=== PATIENT | female | born 1995 | race Caucasian/White ===

== ENCOUNTER 2016-09-24 00:03 | Emergency (ER) | payer OTHER ==
[2016-09-24 00:10] VITALS: TEMP 98.4
[2016-09-24] MEDS ORDERED: SODIUM CHLORIDE 0.9% 1,000 ML IV STA (00:36)
[2016-09-24] MEDS ORDERED: diphenhydrAMINE 50 MG/ML 1 ML VIAL IVP STA (00:36)
[2016-09-24] MEDS ORDERED: METOCLOPRAMIDE 5 MG/ML 2 ML VIAL IVP STA (00:36)
[2016-09-24 01:03] LABS: Basophils # (A) 0.1 k/uL (0-0.2); Basophils % (A) 0 %; CH 29.8; CHCM 32.6; Eosinophils # (A) 0.3 k/uL (0-0.7); Eosinophils % (A) 2 %; HCT 42.7 % (34.0-46.0); HDW 2.62; HGB 13.3 gm/dL (11.4-16.0); Luc # (Auto) 0.09; Luc % (Auto) 1; Lymphocytes # (A) 1.9 k/uL (1.0-4.8); Lymphocytes % (A) 14 %; MCH 28.7 pg (25.0-35.0); MCHC 31.2 g/dL (31.0-37.0); MCV 91.8 fL (80.0-100.0); Mean Platelet Volume 7.7; Monocytes # (A) 0.4 k/uL (0-1.0); Monocytes % (A) 3 %; Neutrophils # (A) 10.7 k/uL (1.3-7.7); Neutrophils % (A) 80 %; RBC 4.65 m/uL (3.80-5.40); RDW 13.5 % (11.5-15.5); WBC 13.4 k/uL (3.8-10.6); WBC (Perox) 13.79
[2016-09-24 01:05] LABS: Amorphous Sediment,Urine Rare /hpf; Appearance,Urine Cloudy (Clear); Bilirubin,Urine Negative (Negative); Glucose,Urine (UA) Negative (Negative); Ketones,Urine Negative (Negative); Leukocyte Esterase,Urine Negative (Negative); Mucus,Urine Rare /hpf; Nitrite,Urine Negative (Negative); PH, Urine 5.5 (5.0-8.0); Particle Count 14789; Protein,Urine 1+ (Negative); RBC,Urine 3 /hpf (0-5); Specific Gravity,Urine 1.014 (1.001-1.035); Squamous Epithelial Cell,Urine 22 /hpf (0-4); UA Billing (MACRO vs. MICRO) MICRO; Urobilinogen,Urine <2.0 mg/dL (<2.0); WBC,Urine 5 /hpf (0-5)
[2016-09-24 01:14] LABS: Amylase 42 U/L (30-110); Anion Gap 15 mmol/L; Calcium 9.5 mg/dL (8.4-10.2); Carbon Dioxide 18 mmol/L (22-30); Chloride 110 mmol/L (98-107); Glucose 111 mg/dL (74-99); Non-African American GFR(MDRD) >60 (>60 ml/min/1.73 sqM); Sodium 143 mmol/L (137-145); Total Bilirubin 0.5 mg/dL (0.2-1.3); Total Protein 7.7 g/dL (6.3-8.2)
[2016-09-24 01:17] LABS: ALT 80 U/L (9-52); AST 97 U/L (14-36); Alkaline Phosphatase 75 U/L (38-126); Blood Urea Nitrogen 8 mg/dL (7-17); Potassium 4.5 mmol/L (3.5-5.1)
--- NOTE | 2016-09-24 01:35 | ED ---
General Adult HPI - General Chief complaint: GI Bleed Stated complaint: Abd Pain/Vomiting Time Seen by Provider: 09/24/16 00:13 Source: patient, RN notes reviewed Mode of arrival: ambulatory Limitations: no limitations - History of Present Illness Initial comments: Patient is a 19-year-old female presenting to the with chief complaint of 1 day of abdominal pain and vomiting. She reports is a diffuse abdominal pain. Patient reports that she's had 4 episodes of vomiting and she is usually able to handle this with a prescribed nausea medication however continue to persist. She also reports that she had one episode of bright red blood in a bowel movement early today. She reports some pain with bowel movements. She reports she's had a past medical history liver cirrhosis, cholecystectomy, appendectomy , A "slow stomach ", IBS. She denies decreased urination, fever, chills, chest pian, cough, bloody emesis, shortness of breath, back pain. - Related Data Home Medications Medication Instructions Recorded Confirmed Albuterol Inhaler [Ventolin 2 puff INHALATION RT-Q6H PRN 08/27/15 09/24/16 Inhaler] Levothyroxine Sodium [Synthroid] 75 mcg PO QAM 08/27/15 09/24/16 [place] Carbonate 900 mg PO HS 08/27/15 09/24/16 Omeprazole [PriLOSEC] 20 mg PO AC-BID 08/27/15 09/24/16 Topiramate [Topamax] 100 mg PO HS 08/27/15 09/24/16 Norgestimate-Ethinyl Estradiol 1 tab PO DAILY 05/10/16 09/24/16 [[place]-Linyah 28 Tablet] FLUoxetine HCL [Sarafem] 60 mg PO QAM 07/05/16 09/24/16 Loratadine [Loratadine] 10 mg PO DAILY 07/05/16 09/24/16 cloNIDine HCL [Clonidine HCl] 0.1 mg PO HS 07/05/16 09/24/16 clonazePAM [clonazePAM] 2 mg PO HS 07/05/16 09/24/16 metFORMIN HCL [Metformin HCl ER] 500 mg PO BID 07/05/16 09/24/16 Previous Rx's Medication Instructions Recorded Ondansetron Odt [Zofran Odt] 4 mg PO Q8HR PRN #10 tab 02/27/16 Famotidine [Pepcid] 20 mg PO DAILY #60 tablet 07/05/16 Metoclopramide [Reglan] 10 mg PO TID PRN #15 tab 07/17/16 Metoclopramide [Reglan] 10 mg PO BID #15 tab 09/24/16 Ondansetron Odt [Zofran ODT] 4 mg PO Q8HR PRN #12 tab 09/24/16 Allergies Allergy/AdvReac Type Severity Reaction Status Date / Time fentanyl Allergy Rash/Hives Verified 09/24/16 00:07 latex Allergy Rash/Hives Verified 09/24/16 00:07 Penicillins Allergy Rash/Hives Verified 09/24/16 00:07 ibuprofen [From Motrin] AdvReac Diarrhea Verified 09/24/16 00:07 Review of Systems ROS Statement: Those systems with pertinent positive or pertinent negative responses have been documented in the HPI. ROS Other: All systems not noted in ROS Statement are negative. Past Medical History Past Medical History: Asthma, Diabetes Mellitus, Fibromyalgia, GERD/Reflux, Liver Disease, Thyroid Disorder Additional Past Medical History / Comment(s): Cirrhosis of the liver, esophagus disease, migraines, dysphagia, tachycardia, ulcer History of Any Multi-Drug Resistant Organisms: None Reported Past Surgical History: Appendectomy, Cholecystectomy, Tonsillectomy Additional Past Surgical History / Comment(s): Septum repair Past Anesthesia/Blood Transfusion Reactions: No Reported Reaction Past Psychological History: Anxiety, Depression, PTSD Smoking Status: Never smoker Past Alcohol Use History: None Reported Past Drug Use History: None Reported - Past Family History Mother Family Medical History: No Reported History General Exam - General Exam Comments Initial Comments: Jaek is a morbidly obese 21-year-old female. She does not appear to be in any significant distress at this time. Limitations: no limitations General appearance: alert, in no apparent distress Head exam: Present: atraumatic, normocephalic, normal inspection Eye exam: Present: normal appearance, PERRL, EOMI. Absent: scleral icterus, conjunctival injection, periorbital swelling ENT exam: Present: normal exam, mucous membranes moist Neck exam: Present: normal inspection. Absent: tenderness, meningismus, lymphadenopathy Respiratory exam: Present: normal lung sounds bilaterally. Absent: respiratory distress, wheezes, rales, rhonchi, stridor Cardiovascular Exam: Present: regular rate, normal rhythm, normal heart sounds. Absent: systolic murmur, diastolic murmur, rubs, gallop, clicks GI/Abdominal exam: Present: soft, tenderness (Mild tenderness diffusely throughout the abdomen. Mainly tender in LEFt upper quadrant), normal bowel sounds. Absent: distended, guarding, rebound, rigid Extremities exam: Present: normal inspection, full ROM, normal capillary refill. Absent: tenderness, pedal edema, joint swelling, calf tenderness Back exam: Present: normal inspection Neurological exam: Present: alert, oriented X3, CN II-XII intact Psychiatric exam: Present: normal affect, normal mood Course Vital Signs 09/24/16 09/24/16 00:08 03:04 Temperature 98.4 F Pulse Rate 90 70 Respiratory 18 16 Rate Blood Pressure 123/77 132/72 O2 Sat by Pulse 98 96 Oximetry Medical Decision Making - Medical Decision Making Patient is a 21 year old female with one day of vomiting and abdominal pain. Patient labs are normal, KUB is normal as well. PAtient will be discharged with nausea medication. Advised to follow up with Dr. Rocha in regards to bloody stool , and possibility of hemorrhoids.Patient reports she feels better after IV hydration and nausea medication. Patient understands treatment plan and will comply. - Lab Data Result diagrams: 09/24/16 00:50 09/24/16 00:50 Lab Results 09/24/16 09/24/16 09/24/16 Range/Units 00:50 00:50 00:50 WBC 13.4 H (3.8-10.6) k/uL RBC 4.65 (3.80-5.40) m/uL Hgb 13.3 (11.4-16.0) gm/dL Hct 42.7 (34.0-46.0) % MCV 91.8 (80.0-100.0) fL MCH 28.7 (25.0-35.0) pg MCHC 31.2 (31.0-37.0) g/dL RDW 13.5 (11.5-15.5) % Plt Count 319 (150-450) k/uL Neutrophils % 80 % Lymphocytes % 14 % Monocytes % 3 % Eosinophils % 2 % Basophils % 0 % Neutrophils # 10.7 H (1.3-7.7) k/uL Lymphocytes # 1.9 (1.0-4.8) k/uL Monocytes # 0.4 (0-1.0) k/uL Eosinophils # 0.3 (0-0.7) k/uL Basophils # 0.1 (0-0.2) k/uL Sodium 143 (137-145) mmol/L Potassium 4.5 (3.5-5.1) mmol/L Chloride 110 H (98-107) mmol/L Carbon Dioxide 18 L (22-30) mmol/L Anion Gap 15 mmol/L BUN 8 (7-17) mg/dL Creatinine 0.80 (0.52-1.04) mg/dL Est GFR (MDRD) Af Amer >60 (>60 ml/min/1.73 sqM) Est GFR (MDRD) Non-Af >60 (>60 ml/min/1.73 sqM) Glucose 111 H (74-99) mg/dL Calcium 9.5 (8.4-10.2) mg/dL Total Bilirubin 0.5 (0.2-1.3) mg/dL AST 97 H (14-36) U/L ALT 80 H (9-52) U/L Alkaline Phosphatase 75 (38-126) U/L Total Protein 7.7 (6.3-8.2) g/dL Albumin 4.1 (3.5-5.0) g/dL Amylase 42 (30-110) U/L Lipase 46 (23-300) U/L Urine Color Yellow Urine Appearance Cloudy H (Clear) Urine pH 5.5 (5.0-8.0) Ur Specific [place] 1.014 (1.001-1.035) Urine Protein 1+ H (Negative) Urine Glucose (UA) Negative (Negative) Urine Ketones Negative (Negative) Urine Blood Negative (Negative) Urine Nitrate Negative (Negative) Urine Bilirubin Negative (Negative) Urine Urobilinogen <2.0 (<2.0) mg/dL Ur Leukocyte Esterase Negative (Negative) Urine RBC 3 (0-5) /hpf Urine WBC 5 (0-5) /hpf Ur Squamous Epith Cells 22 H (0-4) /hpf Amorphous Sediment Rare H (None) /hpf Hyaline Casts 5 H (0-2) /lpf Urine Mucus Rare H (None) /hpf Urine HCG, Qual (Not Detectd) Stool Occult Blood (Negative) 09/24/16 09/24/16 Range/Units 00:50 01:30 WBC (3.8-10.6) k/uL RBC (3.80-5.40) m/uL Hgb (11.4-16.0) gm/dL Hct (34.0-46.0) % MCV (80.0-100.0) fL MCH (25.0-35.0) pg MCHC (31.0-37.0) g/dL RDW (11.5-15.5) % Plt Count (150-450) k/uL Neutrophils % % Lymphocytes % % Monocytes % % Eosinophils % % Basophils % % Neutrophils # (1.3-7.7) k/uL Lymphocytes # (1.0-4.8) k/uL Monocytes # (0-1.0) k/uL Eosinophils # (0-0.7) k/uL Basophils # (0-0.2) k/uL Sodium (137-145) mmol/L Potassium (3.5-5.1) mmol/L Chloride (98-107) mmol/L Carbon Dioxide (22-30) mmol/L Anion Gap mmol/L BUN (7-17) mg/dL Creatinine (0.52-1.04) mg/dL Est GFR (MDRD) Af Amer (>60 ml/min/1.73 sqM) Est GFR (MDRD) Non-Af (>60 ml/min/1.73 sqM) Glucose (74-99) mg/dL Calcium (8.4-10.2) mg/dL Total Bilirubin (0.2-1.3) mg/dL AST (14-36) U/L ALT (9-52) U/L Alkaline Phosphatase (38-126) U/L Total Protein (6.3-8.2) g/dL Albumin (3.5-5.0) g/dL Amylase (30-110) U/L Lipase (23-300) U/L Urine Color Urine Appearance (Clear) Urine pH (5.0-8.0) Ur Specific [place] (1.001-1.035) Urine Protein (Negative) Urine Glucose (UA) (Negative) Urine Ketones (Negative) Urine Blood (Negative) Urine Nitrate (Negative) Urine Bilirubin (Negative) Urine Urobilinogen (<2.0) mg/dL Ur Leukocyte Esterase (Negative) Urine RBC (0-5) /hpf Urine WBC (0-5) /hpf Ur Squamous Epith Cells (0-4) /hpf Amorphous Sediment (None) /hpf Hyaline Casts (0-2) /lpf Urine Mucus (None) /hpf Urine HCG, Qual Not Detected (Not Detectd) Stool Occult Blood Positive H (Negative) Disposition Clinical Impression: Heme + stool, Nausea & vomiting Disposition: HOME SELF-CARE Condition: Good Instructions: Gastrointestinal Bleeding (ED), Hemorrhoids (ED) Additional Instructions: instructed to use stool softeners. Patient started take nausea medication as directed. Follow-up with Dr. Sarmiento regards to heme-positive stools. Return to the [facility] if any alarming signs or symptoms occur. Prescriptions: Metoclopramide [Reglan] 10 mg PO BID #15 tab Ondansetron Odt [Zofran ODT] 4 mg PO Q8HR PRN #12 tab PRN Reason: Nausea Referrals: Marysol Rose DO [Primary Care Provider] - 1-2 days Time of Disposition: 02:41
--- NOTE | 2016-09-24 01:44 | XR ---
EXAMINATION TYPE: XR KUB DATE OF EXAM: 09/24/2016 1:06 AM CLINICAL HISTORY: Abdominal pain, rectal bleeding TECHNIQUE: 2 frontal upright radiographs of abdomen were obtained. COMPARISON: None. FINDINGS: Scattered gas is seen in non-distended small bowel loops. Gas and fecal material is seen in non-distended colon. There is no visceromegaly, pneumoperitoneum, or abnormal calcification appr eciated. The lung bases are clear and the osseous structures are intact. Surgical clips are noted in the right upper abdomen. Mild levoscoliosis is present in the lumbar spine. IMPRESSION: Overall nonobstructive bowel gas pattern.
[2016-09-24 03:05] VITALS: BP 132/72; PULSE 70; RESP 16
[2016-09-28 01:58] LABS: Hemoglobin A1C 5.2 % (4.2-6.1)
== END 2016-09-24 03:04 | disposition home or self-care (01) ==
LOC: EC 00:03
DX: R11.2 Nausea with vomiting, unspecified (principal); R19.5 Other fecal abnormalities; R10.9 Unspecified abdominal pain; K74.60 Unspecified cirrhosis of liver; K58.9 Irritable bowel syndrome, unspecified; Z79.3 Long term (current) use of hormonal contraceptives; Z79.84 Long term (current) use of oral hypoglycemic drugs; Z88.5 Allergy status to narcotic agent; Z88.0 Allergy status to penicillin; Z91.040 Latex allergy status; E07.9 Disorder of thyroid, unspecified; E11.9 Type 2 diabetes mellitus without complications; M79.7 Fibromyalgia; K21.9 Gastro-esophageal reflux disease without esophagitis; F41.9 Anxiety disorder, unspecified; F32.9 Major depressive disorder, single episode, unspecified; F43.10 Post-traumatic stress disorder, unspecified
CPT/HCPCS: 99284; 96374; 96375; 96361; 36415; 80053; 82150; 83036; 83690; 85025; 82272; 81001; 81025; 74000; J1200; J2765

== ENCOUNTER 2016-10-20 14:17 | Emergency (ER) | payer OTHER ==
[2016-10-20 14:27] VITALS: RESP 18
[2016-10-20] MEDS ORDERED: HYDROcodone/APAP 5-325MG 1 EACH TAB PO STA (14:36)
--- NOTE | 2016-10-20 14:42 | ED ---
Chest Pain HPI - General Chief Complaint: Chest Pain Stated Complaint: Chest Pain Time Seen by Provider: 10/20/16 14:32 Source: patient, RN notes reviewed Mode of arrival: wheelchair Limitations: no limitations - History of Present Illness Initial Comments: 21-year-old female presents to the emergency department with a chief complaint of chest pain. Patient states that she's been helping her brother with his baby and everything when she lifts the baby when she will she has this chest discomfort. Patient states she is so painful to the chest painful to touch and painful to take a big deep breath. Patient states she is here because she just could not tolerate the pain anymore. Patient states there is no falls traumas or injuries. Patient states she was concerned due to the continued pain so she thought that she should be seen. Patient denies any recent fever, chills, shortness of breath, back pain, abdominal pain, nausea vomiting, numbness or tingling, dysuria or hematuria, constipation or diarrhea, headaches or visual changes, or any other current symptoms. - Related Data Home Medications Medication Instructions Recorded Confirmed Albuterol Inhaler [Ventolin 2 puff INHALATION RT-Q6H PRN 08/27/15 10/20/16 Inhaler] Levothyroxine Sodium [Synthroid] 75 mcg PO QAM 08/27/15 10/20/16 [place] Carbonate 900 mg PO HS 08/27/15 10/20/16 Omeprazole [PriLOSEC] 20 mg PO AC-BID 08/27/15 10/20/16 Topiramate [Topamax] 100 mg PO HS 08/27/15 10/20/16 Norgestimate-Ethinyl Estradiol 1 tab PO DAILY 05/10/16 10/20/16 [[place]-Linyah 28 Tablet] FLUoxetine HCL [Sarafem] 60 mg PO QAM 07/05/16 10/20/16 Loratadine [Loratadine] 10 mg PO DAILY 07/05/16 10/20/16 cloNIDine HCL [Clonidine HCl] 0.1 mg PO HS 07/05/16 10/20/16 clonazePAM [clonazePAM] 2 mg PO HS 07/05/16 10/20/16 Metoclopramide [Reglan] 10 mg PO DAILY 10/20/16 10/20/16 Previous Rx's Medication Instructions Recorded Famotidine [Pepcid] 20 mg PO DAILY #60 tablet 07/05/16 Ondansetron Odt [Zofran ODT] 4 mg PO Q8HR PRN #12 tab 09/24/16 Allergies Allergy/AdvReac Type Severity Reaction Status Date / Time fentanyl Allergy Rash/Hives Verified 10/20/16 14:27 latex Allergy Rash/Hives Verified 10/20/16 14:27 Penicillins Allergy Rash/Hives Verified 10/20/16 14:27 ibuprofen [From Motrin] AdvReac Diarrhea Verified 10/20/16 14:27 Review of Systems ROS Statement: Those systems with pertinent positive or pertinent negative responses have been documented in the HPI. ROS Other: All systems not noted in ROS Statement are negative. EKG Findings - EKG Comments: EKG Findings:: normal sinus rhythm 97 bpm, normal axis, no atopy, no S-T depressions or elevations, Past Medical History Past Medical History: Asthma, Fibromyalgia, GERD/Reflux, Liver Disease, Thyroid Disorder Additional Past Medical History / Comment(s): Cirrhosis of the liver, esophagus disease, migraines, dysphagia, tachycardia, ulcer History of Any Multi-Drug Resistant Organisms: None Reported Past Surgical History: Appendectomy, Cholecystectomy, Tonsillectomy Additional Past Surgical History / Comment(s): Septum repair Past Anesthesia/Blood Transfusion Reactions: No Reported Reaction Past Psychological History: Anxiety, Depression, PTSD Smoking Status: Never smoker Past Alcohol Use History: None Reported Past Drug Use History: None Reported - Past Family History Mother Family Medical History: No Reported History General Exam - General Exam Comments Initial Comments: General: The patient is awake and alert, in no distress, and does not appear acutely ill. Eye: Pupils are equal, round and reactive to light. Ears, nose, mouth and throat: There are moist mucous membranes. Neck: The neck is supple, there is no tenderness. Cardiovascular: There is a regular rate and rhythm. No murmur, rub or gallop is appreciated. Tenderness with patient the anterior chest wall. Respiratory: Lungs are clear to auscultation, respirations are non-labored, breath sounds are equal. No wheezes, stridor, rales, or rhonchi. Back: There is no tenderness to palpation in the midline. There is no obvious deformity. No rashes noted. Musculoskeletal: Normal ROM, no tenderness, There is no pedal edema. There is no calf tenderness or swelling. Sensation intact. Pulses equal bilaterally 2+. Neurological: CN II-XII intact, There are no obvious motor or sensory deficits. Coordination appears grossly intact. Speech is normal. Skin: Skin is warm and dry and no rashes or lesions are noted. Psychiatric: Cooperative, appropriate mood & affect, normal judgment. Limitations: no limitations Course Vital Signs 10/20/16 14:22 Temperature 98.3 F Pulse Rate 86 Respiratory 18 Rate Blood Pressure 111/55 O2 Sat by Pulse 97 Oximetry Chest Pain MDM - MDM 21-year-old female presents for chest wall pain. At this time EKG and chest x- ray were reviewed and show no acute process. Patient appears to be costochondritis. We discussed continued ice the area we discussed using Tylenol for pain control. We discussed return parameters and follow-up. Patient states that she understood all the questions have been answered. She will be discharged home. Disposition Clinical Impression: Costochondritis, acute Disposition: HOME SELF-CARE Condition: Stable Instructions: Costochondritis (ED) Additional Instructions: Please use medication as discussed. Please follow up with family doctor if symptoms have not improved over the next two days. Please return to the emergency room if your symptoms increase or worsen or for any other concerns. Referrals: Marysol Rose DO [Primary Care Provider] - 1-2 days Time of Disposition: 15:39
--- NOTE | 2016-10-20 15:38 | XR ---
EXAMINATION TYPE: XR chest 2V DATE OF EXAM: 10/20/2016 3:06 PM COMPARISON: 08/31/2016 HISTORY: Cough and short of breath TECHNIQUE: Frontal and lateral views of the chest are obtained. FINDINGS: Heart and mediastinum are normal. Lungs are clear of infiltrate. There is no heart failure . Costophrenic angles are clear. Bony thorax is intact. IMPRESSION: No active cardiopulmonary disease. No change.
[2016-10-20 16:04] VITALS: BP 112/68; PULSE 100; TEMP 97.6
== END 2016-10-20 16:04 | disposition home or self-care (01) ==
LOC: EC 14:17
DX: M94.0 Chondrocostal junction syndrome [Tietze] (principal); E07.9 Disorder of thyroid, unspecified; K21.9 Gastro-esophageal reflux disease without esophagitis; G43.909 Migraine, unspecified, not intractable, without status migrainosus; K74.60 Unspecified cirrhosis of liver; F43.10 Post-traumatic stress disorder, unspecified; F32.9 Major depressive disorder, single episode, unspecified; F41.9 Anxiety disorder, unspecified; Z79.3 Long term (current) use of hormonal contraceptives; Z79.899 Other long term (current) drug therapy; Z88.0 Allergy status to penicillin; Z88.5 Allergy status to narcotic agent; Z91.040 Latex allergy status
CPT/HCPCS: 71020; 93005; 99285

== ENCOUNTER → 2016-12-20 | Outpatient (CLI) | payer OTHER ==
[2016-12-20 14:49] LABS: CH 29.3; CHCM 31.3; HCT 42.7 % (34.0-46.0); HDW 2.58; HGB 13.7 gm/dL (11.4-16.0); Hypochromasia Slight; MCH 30.1 pg (25.0-35.0); Mean Platelet Volume 6.7; RBC 4.54 m/uL (3.80-5.40); RDW 13.4 % (11.5-15.5); WBC 10.9 k/uL (3.8-10.6)
[2016-12-20 15:02] LABS: ALT 88 U/L (9-52); AST 103 U/L (14-36); Alkaline Phosphatase 82 U/L (38-126); Anion Gap 13 mmol/L; Blood Urea Nitrogen 9 mg/dL (7-17); Carbon Dioxide 20 mmol/L (22-30); Chloride 107 mmol/L (98-107); Cholesterol 266 mg/dL (<200); GGT 193 U/L (12-43); Glucose 110 mg/dL (74-99); HDL Cholesterol 48 mg/dL (40-60); Non-African American GFR(MDRD) >60 (>60 ml/min/1.73 sqM); Sodium 140 mmol/L (137-145); Total Bilirubin 0.4 mg/dL (0.2-1.3); Total Protein 7.8 g/dL (6.3-8.2); Triglycerides 452 mg/dL (<150)
[2016-12-21 04:52] LABS: EBV - VCA IgM 10.9 U/mL (<36.0)
== END | disposition home or self-care (01) ==
LOC: PROCWHC3 14:30
PROVIDERS: ATTEND Family Medicine
DX: K76.0 Fatty (change of) liver, not elsewhere classified (principal); J11.1 Influenza due to unidentified influenza virus with other respiratory manifestations; R10.9 Unspecified abdominal pain
CPT/HCPCS: 36415; 80053; 80061; 82977; 83735; 84443; 85027; 86644; 86665; 87502

== ENCOUNTER 2017-01-06 18:22 | Inpatient (IN) | payer OTHER ==
[2017-01-06] MEDS ORDERED: HYDROmorphone 1 MG/ML 1 ML SYRINGE IVP STA (19:16)
[2017-01-06] MEDS ORDERED: METOCLOPRAMIDE 5 MG/ML 2 ML VIAL IVP STA (19:16)
[2017-01-06] MEDS ORDERED: diphenhydrAMINE 50 MG/ML 1 ML VIAL IVP STA (19:16)
[2017-01-06] MEDS ORDERED: SODIUM CHLORIDE 0.9% 1,000 ML IV STA (19:16)
--- NOTE | 2017-01-06 19:53 | ED ---
Nausea/Vomiting/Diarrhea HPI - General Source: patient, RN notes reviewed, old records reviewed Mode of arrival: ambulatory Limitations: no limitations <Sheila Haji - Last Filed: 01/06/17 21:32> <Pavan Post - Last Filed: 01/06/17 22:18> - General Chief complaint: Nausea/Vomiting/Diarrhea Stated complaint: Vomiting, abd pain Time Seen by Provider: 01/06/17 19:02 - History of Present Illness Initial comments: This is a 21-year-old female with chief complaint of right upper quadrant epigastric abdominal pain and multiple episodes of vomiting for one day. Patient reports with a slow stomach. She reports that she's had her gallbladder removed. She states that she follows up with Dr. Rocha regards to return gastrointestinal issues. She states she does have a history of poor liver and states that she will continually have liver pain all the time. She reports that she has a history of liver cirrhosis as well due to psychiatric medications. Patient states that she has not been able to hold down any food or liquid. She reports that she vomited her entire right in the emergency department. (Sheila Haji) - Related Data Home Medications Medication Instructions Recorded Confirmed Albuterol Inhaler [Ventolin 2 puff INHALATION RT-Q6H PRN 08/27/15 01/06/17 Inhaler] [place] Carbonate 600 mg PO HS 08/27/15 01/06/17 Omeprazole [PriLOSEC] 20 mg PO AC-BID 08/27/15 01/06/17 Topiramate [Topamax] 100 mg PO HS 08/27/15 01/06/17 Norgestimate-Ethinyl Estradiol 1 tab PO DAILY 05/10/16 01/06/17 [[place]-Linyah 28 Tablet] FLUoxetine HCL [Sarafem] 60 mg PO QAM 07/05/16 01/06/17 Loratadine [Loratadine] 10 mg PO DAILY 07/05/16 01/06/17 cloNIDine HCL [Clonidine HCl] 0.1 mg PO HS 07/05/16 01/06/17 Metoclopramide [Reglan] 10 mg PO DAILY PRN 10/20/16 01/06/17 Hydrochlorothiazide 25 mg PO DAILY PRN 01/06/17 01/06/17 Levothyroxine Sodium [Synthroid] 125 mcg PO DAILY 01/06/17 01/06/17 Ondansetron Odt [Zofran ODT] 4 mg PO DAILY PRN 01/06/17 01/06/17 clonazePAM [KlonoPIN] 0.5 mg PO DAILY 01/06/17 01/06/17 clonazePAM [KlonoPIN] 1.5 mg PO HS 01/06/17 01/06/17 Previous Rx's Medication Instructions Recorded Famotidine [Pepcid] 20 mg PO DAILY #60 tablet 07/05/16 Allergies Allergy/AdvReac Type Severity Reaction Status Date / Time fentanyl Allergy Rash/Hives Verified 01/06/17 19:39 latex Allergy Rash/Hives Verified 01/06/17 19:39 Penicillins Allergy Rash/Hives Verified 01/06/17 19:39 ibuprofen [From Motrin] AdvReac Diarrhea Verified 01/06/17 19:39 GRAPE JUICE Allergy Unknown Uncoded 01/06/17 19:39 Review of Systems ROS Other: All systems not noted in ROS Statement are negative. <Sheila Haji - Last Filed: 01/06/17 21:32> ROS Other: All systems not noted in ROS Statement are negative. <Pavan Post - Last Filed: 01/06/17 22:18> ROS Statement: Those systems with pertinent positive or pertinent negative responses have been documented in the HPI. Past Medical History Past Medical History: Asthma, Fibromyalgia, GERD/Reflux, Liver Disease, Thyroid Disorder Additional Past Medical History / Comment(s): Cirrhosis of the liver, esophagus disease, migraines, dysphagia, tachycardia, ulcer History of Any Multi-Drug Resistant Organisms: None Reported Past Surgical History: Appendectomy, Cholecystectomy, Tonsillectomy Additional Past Surgical History / Comment(s): Septum repair Past Anesthesia/Blood Transfusion Reactions: No Reported Reaction Past Psychological History: Anxiety, Depression, PTSD Smoking Status: Never smoker Past Alcohol Use History: None Reported Past Drug Use History: None Reported - Past Family History Mother Family Medical History: No Reported History <Sheila Haji - Last Filed: 01/06/17 21:32> General Exam Limitations: no limitations General appearance: alert, in no apparent distress Head exam: Present: atraumatic, normocephalic, normal inspection Eye exam: Present: normal appearance, PERRL, EOMI. Absent: scleral icterus, conjunctival injection, periorbital swelling ENT exam: Present: normal exam, normal oropharynx, mucous membranes moist Neck exam: Present: normal inspection. Absent: tenderness, meningismus, lymphadenopathy Respiratory exam: Present: normal lung sounds bilaterally. Absent: respiratory distress, wheezes, rales, rhonchi, stridor Cardiovascular Exam: Present: regular rate, normal rhythm, normal heart sounds. Absent: systolic murmur, diastolic murmur, rubs, gallop, clicks GI/Abdominal exam: Present: soft, tenderness (RUQ tenderness and epigastric tenderness. ), normal bowel sounds. Absent: distended, guarding, rebound, rigid Extremities exam: Present: normal inspection, full ROM, normal capillary refill. Absent: tenderness, pedal edema, joint swelling, calf tenderness Back exam: Present: normal inspection Neurological exam: Present: alert, oriented X3, CN II-XII intact Psychiatric exam: Present: normal affect, normal mood Skin exam: Present: warm, dry, intact, normal color. Absent: rash <Sheila Haji - Last Filed: 01/06/17 21:32> <Pavan Post - Last Filed: 01/06/17 22:18> - General Exam Comments Initial Comments: The obese 21-year-old female. Patient does not appear to be in any acute distress. Patient is not vomiting at this time. (Sheila Haji) Medical Decision Making - Lab Data Result diagrams: 01/06/17 20:10 01/06/17 20:10 - Radiology Data Radiology results: report reviewed <Sheila Haji - Last Filed: 01/06/17 21:32> - Lab Data Result diagrams: 01/06/17 20:10 01/06/17 20:10 <Pavan Post - Last Filed: 01/06/17 22:18> - Medical Decision Making This is a 21-year-old female with a right upper quadrant pain and intractable vomiting. Patient states she has a history of cholecystectomy". She follows up with Dr. Sarmiento. Patient reports she feels chilled denies any fever. Patient's lab work was obtained. She does have significantly elevated liver enzymes. She reports she has history of liver cirrhosis due to psychiatric medications. Patient states that she has not been able to stop vomiting. Patient denies any recent drug or alcohol use. Discussed case with Dr. Post. Like to run a hepatitis panel. Discussed the patient could likely be admitted for GI consult, and nausea and vomiting management. (Sheila Haji) Alejandro decision-making. The patient's case discussed with Dr. Huff. Patient be admitted his service with request for consultation from her house painter helper Dr. Rocha. Dr. Post (Pavan Post) - Lab Data Lab Results 01/06/17 01/06/17 01/06/17 Range/Units 20:00 20:10 20:10 WBC 11.2 H (3.8-10.6) k/uL RBC 5.06 (3.80-5.40) m/uL Hgb 14.7 (11.4-16.0) gm/dL Hct 44.9 (34.0-46.0) % MCV 88.7 D (80.0-100.0) fL MCH 29.1 (25.0-35.0) pg MCHC 32.8 (31.0-37.0) g/dL RDW 13.4 (11.5-15.5) % Plt Count 358 (150-450) k/uL Neutrophils % 79 % Lymphocytes % 14 % Monocytes % 3 % Eosinophils % 3 % Basophils % 1 % Neutrophils # 8.8 H (1.3-7.7) k/uL Lymphocytes # 1.6 (1.0-4.8) k/uL Monocytes # 0.4 (0-1.0) k/uL Eosinophils # 0.3 (0-0.7) k/uL Basophils # 0.1 (0-0.2) k/uL Sodium 143 (137-145) mmol/L Potassium 3.3 L (3.5-5.1) mmol/L Chloride 103 (98-107) mmol/L Carbon Dioxide 27 (22-30) mmol/L Anion Gap 13 mmol/L BUN 12 (7-17) mg/dL Creatinine 1.00 (0.52-1.04) mg/dL Est GFR (MDRD) Af Amer >60 (>60 ml/min/1.73 sqM) Est GFR (MDRD) Non-Af >60 (>60 ml/min/1.73 sqM) Glucose 113 H (74-99) mg/dL Calcium 10.9 H (8.4-10.2) mg/dL Total Bilirubin 0.6 (0.2-1.3) mg/dL AST 583 H (14-36) U/L ALT 412 H (9-52) U/L Alkaline Phosphatase 99 (38-126) U/L Total Protein 9.0 H (6.3-8.2) g/dL Albumin 4.6 (3.5-5.0) g/dL Amylase 58 (30-110) U/L Lipase 93 (23-300) U/L Urine Color Yellow Urine Appearance Turbid H (Clear) Urine pH 5.0 (5.0-8.0) Ur Specific [place] 1.015 (1.001-1.035) Urine Protein Trace H (Negative) Urine Glucose (UA) Negative (Negative) Urine Ketones Negative (Negative) Urine Blood Moderate H (Negative) Urine Nitrite Negative (Negative) Urine Bilirubin Negative (Negative) Urine Urobilinogen <2.0 (<2.0) mg/dL Ur Leukocyte Esterase Negative (Negative) Urine RBC 6 H (0-5) /hpf Urine WBC 6 H (0-5) /hpf Ur Squamous Epith Cells 8 H (0-4) /hpf Uric Acid Crystals Many H (None) /hpf Amorphous Sediment Few H (None) /hpf Urine Bacteria Occasional H (None) /hpf Hyaline Casts 1 (0-2) /lpf Urine Mucus Rare H (None) /hpf - Radiology Data KUB is negative for anything of any acute process. (Sheila Haji) Disposition Time of Disposition: 21:32 <Sheila Haji - Last Filed: 01/06/17 21:32> <Pavan Post - Last Filed: 01/06/17 22:18> Clinical Impression: Cirrhosis, Nausea & vomiting, RUQ pain Disposition: ADMITTED IP TO THIS HOSP Condition: Stable Referrals: Estephania Mosher MD [Primary Care Provider] - 1-2 days
[2017-01-06 20:25] LABS: Basophils # (A) 0.1 k/uL (0-0.2); Basophils % (A) 1 %; CH 29.8; CHCM 33.7; Eosinophils # (A) 0.3 k/uL (0-0.7); Eosinophils % (A) 3 %; HCT 44.9 % (34.0-46.0); HDW 2.67; HGB 14.7 gm/dL (11.4-16.0); Luc # (Auto) 0.11; Luc % (Auto) 1; Lymphocytes # (A) 1.6 k/uL (1.0-4.8); Lymphocytes % (A) 14 %; MCH 29.1 pg (25.0-35.0); MCHC 32.8 g/dL (31.0-37.0); Mean Platelet Volume 6.8; Monocytes # (A) 0.4 k/uL (0-1.0); Monocytes % (A) 3 %; Neutrophils # (A) 8.8 k/uL (1.3-7.7); Neutrophils % (A) 79 %; RBC 5.06 m/uL (3.80-5.40); RDW 13.4 % (11.5-15.5); WBC 11.2 k/uL (3.8-10.6); WBC (Perox) 11.03
[2017-01-06 20:36] LABS: ALT 412 U/L (9-52); AST 583 U/L (14-36); Alkaline Phosphatase 99 U/L (38-126); Amylase 58 U/L (30-110); Anion Gap 13 mmol/L; Blood Urea Nitrogen 12 mg/dL (7-17); Calcium 10.9 mg/dL (8.4-10.2); Carbon Dioxide 27 mmol/L (22-30); Chloride 103 mmol/L (98-107); Glucose 113 mg/dL (74-99); Non-African American GFR(MDRD) >60 (>60 ml/min/1.73 sqM); Potassium 3.3 mmol/L (3.5-5.1); Sodium 143 mmol/L (137-145); Total Bilirubin 0.6 mg/dL (0.2-1.3)
[2017-01-06 20:37] LABS: MCV 88.7 fL (80.0-100.0)
--- NOTE | 2017-01-06 20:38 | XR ---
Abdomen HISTORY: Pain Frontal view of the abdomen on 2 images correlated to prior 24 September 2016 There is no significant interval change IMPRESSION: No acute abnormality
[2017-01-06 20:42] LABS: Amorphous Sediment,Urine Few /hpf; Appearance,Urine Turbid (Clear); Bacteria,Urine Occasional /hpf; Bilirubin,Urine Negative (Negative); Glucose,Urine (UA) Negative (Negative); Ketones,Urine Negative (Negative); Leukocyte Esterase,Urine Negative (Negative); Mucus,Urine Rare /hpf; Nitrite,Urine Negative (Negative); Particle Count 20024; Protein,Urine Trace (Negative); RBC,Urine 6 /hpf (0-5); Specific Gravity,Urine 1.015 (1.001-1.035); Squamous Epithelial Cell,Urine 8 /hpf (0-4); UA Billing (MACRO vs. MICRO) MICRO; Uric Acid Crystals,Urine Many /hpf; Urobilinogen,Urine <2.0 mg/dL (<2.0); WBC,Urine 6 /hpf (0-5)
[2017-01-06] MEDS ORDERED: NALOXONE 0.4 MG/ML 1 ML VIAL IV PRN (21:33)
[2017-01-06] MEDS ORDERED: LORazepam 2 MG/ML SYRINGE IV PRN (21:33)
[2017-01-06] MEDS ORDERED: ALBUTEROL NEBULIZED 2.5 MG/3 ML INHALATION PRN (21:36)
[2017-01-06] MEDS ORDERED: HYDROCHLOROTHIAZIDE 25 MG TAB PO PRN (21:36)
[2017-01-06] MEDS ORDERED: ONDANSETRON ODT 4 MG TAB PO PRN (21:36)
[2017-01-06] MEDS: SODIUM CHLORIDE 0.9% 1,000 ML IV SCH (22:19)
[2017-01-06 23:00] VITALS: BMI 46.8
[2017-01-06] MEDS ORDERED: METOCLOPRAMIDE 5 MG/ML 2 ML VIAL IVP PRN (23:27)
[2017-01-06] MEDS: ONDANSETRON 4 MG/2 ML VIAL IVP PRN (23:45)
[2017-01-06] MEDS: HYDROmorphone 1 MG/ML 1 ML SYRINGE IV PRN (23:45)
[2017-01-06] MEDS: clonazePAM 1 MG TAB PO SCH (23:46)
[2017-01-07] MEDS: LITHIUM CARBONATE 300 MG CAP PO SCH ×2 (00:14→21:40)
[2017-01-07] MEDS: TOPIRAMATE 100 MG TAB PO SCH ×2 (00:14→21:40)
[2017-01-07] MEDS: cloNIDine HCL 0.1 MG TAB PO SCH ×2 (00:15→21:40)
[2017-01-07] MEDS: HYDROmorphone 1 MG/ML 1 ML SYRINGE IV PRN ×5 (05:03→21:37)
[2017-01-07 05:26] LABS: Hepatitis B Surface Ag Index 0.08
[2017-01-07 05:32] LABS: Hepatitis B Core IgM Index 0.11
[2017-01-07 05:44] LABS: Hepatitis C Virus IgG Index 0.01
[2017-01-07 05:48] LABS: Hepatitis C Virus IgG Ab Negative (Negative)
[2017-01-07] MEDS: LEVOTHYROXINE 125 MCG TAB PO SCH (06:16)
[2017-01-07] MEDS: PANTOPRAZOLE 40 MG TABLET PO SCH ×2 (06:35→18:27)
[2017-01-07] MEDS ORDERED: diphenhydrAMINE 25 MG CAP PO PRN (06:51)
[2017-01-07] MEDS ORDERED: PANTOPRAZOLE 40 MG/10 ML VIAL IV SCH (09:00)
[2017-01-07] MEDS ORDERED: FAMOTIDINE 20 MG TAB PO SCH (09:00)
[2017-01-07] MEDS ORDERED: NORGESTIMATE ETHINYL ESTRADIOL PO SCH (09:00)
[2017-01-07] MEDS ORDERED: PNEUMOCOCCAL VACC-PNEUMOVAX 23 25 MCG/0.5 ML VIAL IM ONE (09:00)
[2017-01-07 09:29] LABS: Basophils # (A) 0.1 k/uL (0-0.2); Basophils % (A) 1 %; CH 29.7; CHCM 32.4; Eosinophils # (A) 0.4 k/uL (0-0.7); Eosinophils % (A) 4 %; HCT 40.7 % (34.0-46.0); HDW 2.66; HGB 12.8 gm/dL (11.4-16.0); Luc # (Auto) 0.15; Luc % (Auto) 2; Lymphocytes % (A) 31 %; MCHC 31.5 g/dL (31.0-37.0); MCV 92.1 fL (80.0-100.0); Mean Platelet Volume 6.8; Monocytes # (A) 0.6 k/uL (0-1.0); Monocytes % (A) 6 %; Neutrophils # (A) 5.6 k/uL (1.3-7.7); Neutrophils % (A) 57 %; RBC 4.42 m/uL (3.80-5.40); RDW 13.6 % (11.5-15.5); WBC 9.7 k/uL (3.8-10.6); WBC (Perox) 10.15
[2017-01-07 09:32] LABS: ALT 310 U/L (9-52); AST 419 U/L (14-36); Alkaline Phosphatase 68 U/L (38-126); Anion Gap 9 mmol/L; Blood Urea Nitrogen 10 mg/dL (7-17); Calcium 9.1 mg/dL (8.4-10.2); Carbon Dioxide 27 mmol/L (22-30); Chloride 106 mmol/L (98-107); Glucose 95 mg/dL (74-99); Non-African American GFR(MDRD) >60 (>60 ml/min/1.73 sqM); Potassium 3.3 mmol/L (3.5-5.1); Sodium 142 mmol/L (137-145); Total Bilirubin 0.7 mg/dL (0.2-1.3); Total Protein 7.4 g/dL (6.3-8.2)
[2017-01-07] MEDS ORDERED: RX INFO: IV CONTRAST WAS GIVEN 1 EACH MISC MISCELLANE PRN (09:34)
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
[2017-01-07] MEDS: IOHEXOL 350 MG/ML 25 ML BOTTLE (ORAL USE) PO PRN ×2 (09:52→10:58)
[2017-01-07] MEDS: LORATADINE 10 MG TAB PO SCH (10:04)
[2017-01-07] MEDS: HYDROCHLOROTHIAZIDE 25 MG TAB PO SCH (10:04)
[2017-01-07] MEDS: FLUoxetine HCL 20 MG CAP PO SCH (10:04)
[2017-01-07] MEDS: clonazePAM 0.5 MG TAB PO SCH (10:06)
[2017-01-07 10:37] LABS: Acetaminophen <10.0 ug/mL; Salicylate <1.0 mg/dL
[2017-01-07] MEDS ORDERED: POTASSIUM CHLORIDE ER 20 MEQ TAB.ER PO STA (11:12)
--- NOTE | 2017-01-07 11:17 | P.HPIM ---
History of Present Illness H&P Date: 01/07/17 Chief Complaint: Right upper quadrant abdominal pain with intractable vomiting 1 day This is a 21-year-old female, patient of Dr. Mosher. She has a known past medical history of chronic liver cirrhosis secondary to psychiatric medications , hypothyroidism, anxiety, depression, post traumatic stress disorder, schizophrenia, bipolar, fibromyalgia, asthma and hypertension. Patient presents to the emergency room with complaints of right upper quadrant abdominal pain and vomiting that started yesterday. She reports the vomiting containing mostly food and then bile. She came into the emergency room for further evaluation. KUB was negative. She was found to have elevated AST of 583 and ALT of 412. GI service was consulted. They have ordered an ultrasound of the abdomen. Computed tomography scan the abdomen has been ordered as well. Hepatitis panel is negative. White count was elevated 11.2. Patient does admit to feeling warm at times. But denies any actual fever or chills. Denies any bowel movement changes or urinary symptoms. She had her gallbladder removed about [address] Sagrario gerardo. An EGD was completed in August [address] Sarmiento had revealed small hiatal hernia and gastritis and gastroparesis. GI service is trying to obtain medical records from every 4 to hospital. Patient did have a liver biopsy done at that time. Patient reports she was told that her psych meds were contributing to her liver cirrhosis. Patient seeds Dr. Morris for psychiatry. Psychiatry will be consulted to review her psychiatric medications for any further adjustments. Patient denies any alcohol use. Review of Systems Please refer to HPI otherwise unremarkable Past Medical History Past Medical History: Asthma, Fibromyalgia, GERD/Reflux, Liver Disease, Thyroid Disorder Additional Past Medical History / Comment(s): Cirrhosis of the liver, esophagus disease, migraines, dysphagia, tachycardia, ulcer History of Any Multi-Drug Resistant Organisms: None Reported Past Surgical History: Appendectomy, Cholecystectomy, Tonsillectomy Additional Past Surgical History / Comment(s): Septum repair Past Anesthesia/Blood Transfusion Reactions: No Reported Reaction Past Psychological History: Anxiety, Depression, PTSD Smoking Status: Never smoker Past Alcohol Use History: None Reported Past Drug Use History: None Reported - Past Family History Mother Family Medical History: No Reported History Father Additional Family Medical History / Comment(s): cirrhosis, esophagus disease Medications and Allergies Home Medications Medication Instructions Recorded Confirmed Type Albuterol Inhaler [Ventolin 2 puff INHALATION RT-Q6H PRN 08/27/15 01/06/17 History Inhaler] [place] Carbonate 600 mg PO HS 08/27/15 01/06/17 History Omeprazole [PriLOSEC] 20 mg PO AC-BID 08/27/15 01/06/17 History Topiramate [Topamax] 100 mg PO HS 08/27/15 01/06/17 History Norgestimate-Ethinyl Estradiol 1 tab PO DAILY 05/10/16 01/06/17 History [[place]-Linyah 28 Tablet] FLUoxetine HCL [Sarafem] 60 mg PO QAM 07/05/16 01/06/17 History Loratadine [Loratadine] 10 mg PO DAILY 07/05/16 01/06/17 History cloNIDine HCL [Clonidine HCl] 0.1 mg PO HS 07/05/16 01/06/17 History Metoclopramide [Reglan] 10 mg PO DAILY PRN 10/20/16 01/06/17 History Hydrochlorothiazide 25 mg PO DAILY 01/06/17 01/06/17 History Levothyroxine Sodium [Synthroid] 125 mcg PO DAILY 01/06/17 01/06/17 History Ondansetron Odt [Zofran ODT] 4 mg PO DAILY PRN 01/06/17 01/06/17 History clonazePAM [KlonoPIN] 0.5 mg PO DAILY 01/06/17 01/06/17 History clonazePAM [KlonoPIN] 1.5 mg PO HS 01/06/17 01/06/17 History Allergies Allergy/AdvReac Type Severity Reaction Status Date / Time fentanyl Allergy Rash/Hives Verified 01/06/17 23:01 latex Allergy Rash/Hives Verified 01/06/17 23:01 Penicillins Allergy Rash/Hives Verified 01/06/17 23:01 ibuprofen [From Motrin] AdvReac Diarrhea Verified 01/06/17 23:01 GRAPE JUICE Allergy Swelling Uncoded 01/06/17 23:01 Physical Exam Vitals: Vital Signs Temp Pulse Pulse Resp BP BP Pulse Ox 01/07/17 09:18 80 01/07/17 09:11 84 01/07/17 07:00 96.8 F L 77 16 115/70 96 01/07/17 04:45 97.2 F L 77 18 92/51 98 01/06/17 22:43 97.2 F L 74 18 106/64 96 01/06/17 22:19 98.8 F 76 16 100/55 96 Intake and Output 01/06/17 01/07/17 01/07/17 22:59 06:59 14:59 Output Total 200 Balance -200 Output: Urine 200 Other: Voiding Method Toilet Weight 108.9 kg Head normocephalic Neck supple Lungs clear to auscultation bilaterally no wheezing or crackles Heart regular rate and rhythm S1-S2, no rub or gallop Abdomen is soft right upper quadrant tenderness with palpation. Positive bowel sounds. Nondistended. Extremities no edema Neuro alert and orientated to 3 Results CBC & Chem 7: 01/07/17 09:08 01/07/17 09:08 Labs: Abnormal Lab Results - Last 24 Hours (Table) 01/07/17 Range/Units 09:08 Potassium 3.3 L (3.5-5.1) mmol/L AST 419 H (14-36) U/L ALT 310 H (9-52) U/L Thrombosis Risk Factor Assmnt - Choose All That Apply Each Factor Represents 1 point: Obesity (BMI >25), Oral contraceptives or hormone replacement therapy Other Risk Factors: No Other congenital or acquired thrombophilia - If yes, enter type in comment: No Thrombosis Risk Factor Assessment Total Risk Factor Score: 2 Thrombosis Risk Factor Assessment Level: Low Risk Assessment and Plan Plan: 1. Right upper quadrant abdominal pain with intractable vomiting and elevated LFTs. Abdominal ultrasound and computed tomography scan the abdomen have been ordered. GI service has been consulted. Hepatitis panel negative 2. Chronic nonalcoholic liver disease likely related to her psychiatric meds. Consult psychiatry to review psychiatric medications for further adjustment in meds that may be contributing to her elevated LFTs 3. Intractable vomiting: Continue with Zofran as needed. Continue Protonix. 4. Hypokalemia patient receiving potassium supplement. Repeat labs in a.m. Likely related to her vomiting. Also will check magnesium level. 5. History of anxiety, depression, PTSD, schizophrenia and bipolar. Patient was evaluated by psychiatry. 6. History of intermittent asthma: Stable. Continue with her nebulizer treatments. 7. History of fibromyalgia 8. Essential hypertension: Blood pressure stable resume home blood pressure medication GI and DVT prophylaxis Pepcid and subcu heparin Time with Patient: Greater than 30 (Greater than 50% of the total time spent in counseling and coordination of care.I performed an examination of the patient and discussed their management with the physician Practice Representative. I have reviewed the Physician Practice Representative's notes and agree with the documented findings and plan of care)
[2017-01-07] MEDS: ONDANSETRON 4 MG/2 ML VIAL IVP PRN ×2 (12:11→21:37)
--- NOTE | 2017-01-07 12:46 | CT ---
EXAMINATION TYPE: CT abdomen pelvis w con DATE OF EXAM: 01/07/2017 12:04 PM COMPARISON: 05/10/2016 HISTORY: 21-year-old female with abdominal pain. Vomiting and Cirrhosis. TECHNIQUE: Contiguous axial scanning of the abdomen and pelvis following administration of 100 ml Omn ipaque 300 IV contrast. Delayed images through the kidneys could not be obtained as the patient was experiencing emesis. Coronal/sagittal reconstructions performed. CT DLP: 1810.70 mGycm Automated exposure control for dose reduction was used. FINDINGS: The heart is normal size without pericardial effusion. Lung bases clear without pleural effusion. Redemonstrated somewhat low density appearance to the liver with hepatomegaly at 21.2 cm craniocaudal . No focal lesion is seen. Portal venous system is patent. No biliary ductal dilatation and Mildly enlarged portahepatic lymph nodes measure up to 1 cm as seen previously. No other mesenteric o r retroperitoneal lymphadenopathy seen. Adrenal glands, kidneys, and pancreas show no gross abnormality. Redemonstrated hilar splenule and mi ld splenomegaly at 14.0 cm, similar to slightly increased from 05/10/2016 versus 13.9 cm. No dilated small bowel, free fluid, or free air. Oral contrast has progressed to the proximal sigmoid. No significant stool burden. No pericolonic inf lammatory change. Bladder is urine distended. Uterus and small ovaries are visualized. No abnormal fluid collection in the pelvis or pelvic lymphadenopathy. Bones: No osseous destructive process. IMPRESSION: 1. REDEMONSTRATED HEPATOMEGALY AND SUGGESTION OF UNDERLYING HEPATIC STEATOSIS. CORRELATE WITH LFT's, LIPID PROFILE, AND PATIENT RISK FACTORS. 2. SPLENOMEGALY (14.0 CM). CLINICAL CORRELATE. 3. A COUPLE MILDLY ENLARGED PORTAHEPATIC LYMPH NODES ARE UNCHANGED AND LIKELY REACTIVE. 4. OTHERWISE, NO ACUTE INFLAMMATORY PROCESS IDENTIFIED TO EXPLAIN THE PATIENT'S SYMPTOMS.
[2017-01-07] MEDS: SODIUM CHLORIDE 0.9% 1,000 ML IV SCH (13:58)
--- NOTE | 2017-01-07 18:00 | US ---
EXAMINATION TYPE: US abdomen limited DATE OF EXAM: 01/07/2017 5:34 PM COMPARISON: NONE CT abdomen pelvis from earlier today. CLINICAL HISTORY: elevated liver enzymes. GB removed x 6 years ago EXAM MEASUREMENTS: Liver Length: 23.1 cm CHD: 0.3 cm Right Kidney: 12.1 x 4.3 x 3.7 cm Suboptimal visualization due to patient body habitus Pancreas: echogenic Liver: Enlarged. Echogenic. Gallbladder: Surgically absent CHD: wnl Right Kidney: not well visualized due to patient body habitus Heterogeneous hyperechoic liver consistent with diffuse fatty infiltration is present. Evaluation for focal masses suboptimal due to the heterogeneity but no obvious suspicious masses are seen on recent CT. IMPRESSION: Diffuse fatty infiltration of liver without suspicious intrahepatic mass or intrahepatic ductal dilatation.
[2017-01-07] MEDS ORDERED: TOPIRAMATE 100 MG TAB PO SCH (21:00)
[2017-01-07] MEDS ORDERED: LITHIUM CARBONATE 300 MG CAP PO SCH (21:00)
[2017-01-07] MEDS ORDERED: cloNIDine HCL 0.1 MG TAB PO SCH (21:00)
[2017-01-07] MEDS: ALBUTEROL NEBULIZED 2.5 MG/3 ML INHALATION SCH (21:17)
[2017-01-07] MEDS: clonazePAM 1 MG TAB PO SCH (21:40)
[2017-01-07] MEDS: HEPARIN SODIUM,PORCINE 5,000 UNIT/ML 1 ML VIAL SQ SCH (21:40)
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
[2017-01-08] MEDS: SODIUM CHLORIDE 0.9% 1,000 ML IV SCH ×3 (00:10→14:21)
[2017-01-08] MEDS: HYDROmorphone 1 MG/ML 1 ML SYRINGE IV PRN ×5 (00:53→20:58)
[2017-01-08] MEDS: PANTOPRAZOLE 40 MG TABLET PO SCH ×2 (06:26→19:16)
[2017-01-08] MEDS: LEVOTHYROXINE 125 MCG TAB PO SCH (06:27)
[2017-01-08] MEDS: ONDANSETRON 4 MG/2 ML VIAL IVP PRN ×2 (06:27→17:22)
[2017-01-08 07:00] LABS: Basophils % (A) 0 %; CH 29.3; CHCM 32.2; Eosinophils # (A) 0.3 k/uL (0-0.7); Eosinophils % (A) 5 %; HCT 39.8 % (34.0-46.0); HDW 2.81; HGB 13.2 gm/dL (11.4-16.0); Luc # (Auto) 0.16; Luc % (Auto) 2; Lymphocytes # (A) 2.2 k/uL (1.0-4.8); Lymphocytes % (A) 33 %; MCH 30.3 pg (25.0-35.0); MCHC 33.1 g/dL (31.0-37.0); MCV 91.5 fL (80.0-100.0); Mean Platelet Volume 6.8; Monocytes # (A) 0.4 k/uL (0-1.0); Monocytes % (A) 6 %; Neutrophils # (A) 3.6 k/uL (1.3-7.7); Neutrophils % (A) 54 %; RBC 4.35 m/uL (3.80-5.40); RDW 13.2 % (11.5-15.5); WBC 6.7 k/uL (3.8-10.6); WBC (Perox) 7.01
[2017-01-08 07:11] LABS: ALT 316 U/L (9-52); AST 406 U/L (14-36); Alkaline Phosphatase 75 U/L (38-126); Anion Gap 9 mmol/L; Blood Urea Nitrogen 6 mg/dL (7-17); Calcium 9.3 mg/dL (8.4-10.2); Carbon Dioxide 24 mmol/L (22-30); Chloride 108 mmol/L (98-107); Glucose 99 mg/dL (74-99); Magnesium 2.3 mg/dL (1.6-2.3); Non-African American GFR(MDRD) >60 (>60 ml/min/1.73 sqM); Potassium 3.6 mmol/L (3.5-5.1); Sodium 141 mmol/L (137-145); Total Bilirubin 0.6 mg/dL (0.2-1.3); Total Protein 7.3 g/dL (6.3-8.2)
[2017-01-08 07:19] LABS: INR 1.1 (<1.1)
[2017-01-08] MEDS ORDERED: SCOPOLAMINE 1.5MG/72HR PATCH TRANSDERM SCH (09:15)
[2017-01-08] MEDS: ALBUTEROL NEBULIZED 2.5 MG/3 ML INHALATION SCH ×2 (09:24→21:15)
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
[2017-01-08] MEDS: HEPARIN SODIUM,PORCINE 5,000 UNIT/ML 1 ML VIAL SQ SCH ×2 (09:50→20:46)
[2017-01-08] MEDS: clonazePAM 0.5 MG TAB PO SCH (09:51)
[2017-01-08] MEDS: FLUoxetine HCL 20 MG CAP PO SCH (09:51)
[2017-01-08] MEDS: HYDROCHLOROTHIAZIDE 25 MG TAB PO SCH (09:51)
[2017-01-08] MEDS: LORATADINE 10 MG TAB PO SCH (09:51)
--- NOTE | 2017-01-08 14:39 | CONS ---
DATE OF CONSULTATION: 01/08/2017 PURPOSE FOR CONSULTATION: "Psychiatry will be consulted to review her psychiatric medications for any further adjustments." INTERVAL HISTORY: Patient has been doing fair. Apparently from a surgical/medical standpoint she is likely to be cleared for discharge today. She reported that she had a quiet evening last night. She said she slept fairly well. Today, she has some GI complaints. She seems a little more strained then she was yesterday. Her main concern today is nightmares through the night that wakes her up with panic. Other than that she feels that she is managing adequately and prepared to go home. It is noted that in records from [facility], there was an indication of a diagnosis of bipolar 2 disorder. I reviewed medical records from [facility] going back to June 29, 2014. [facility] has been working with her regularly since then and in their records it is indicated that she does not have a diagnosis of bipolar disorder. The diagnosis they list include 1) panic disorder with agoraphobia; 2) social anxiety disorder; 3) major depressive disorder, recurrent and 4) posttraumatic stress disorder. Current medications as of her last appointment with Dr. Alonzo of 01/07/2017 include Prozac 80 mg a day in the morning, lithium carbonate 600 mg at bedtime and Klonopin 1.5 mg at bedtime. When I saw the patient she was in bed. She talked with a soft voice. She had a somewhat listless manner. She answered questions with brief responses. She was not spontaneous, her affect was blunted. She did not show much emotional expression one way or another, her mood reserved. She did not appear to be significantly distressed, though she did seem to have some anxiety. ASSESSMENT: I will continue the current diagnosis and treatment plan. I recommend continuing medications as prescribed by Dr. Alonzo at [facility]. I requested that the floor nurse make contact with the nurse for Dr. Alonzo to address the sleep issues with nightmares. Also, I requested they try to get her into see Dr. Alonzo fairly soon for a followup appointment. In addition, I recommended that my consult notes be forwarded to [facility].
--- NOTE | 2017-01-08 17:26 | P.PN ---
Subjective Principal diagnosis: Intractable nausea Patient is a 21-year-old female admitted to [facility] with right upper quadrant abdominal pain was nausea and vomiting and had elevated liver enzymes she was evaluated by gastroenterology. Possibility of elevated liver enzymes due to psychiatric medication was entertained and a consultation for psychiatry was requested Objective - Vital Signs Vital signs: Vital Signs Temp 98.4 F 01/08/17 08:35 Pulse 100 01/08/17 09:33 Resp 24 01/08/17 08:35 BP 118/79 01/08/17 08:35 Pulse Ox 97 01/08/17 08:35 Intake & Output 01/07/17 01/08/17 01/08/17 18:59 06:59 18:59 Intake Total 240 Output Total 1000 1800 800 Balance -760 -1800 -800 Intake: Oral 240 Output: Urine 1000 1800 800 Other: # Voids 1 3 - Exam HEENT head normocephalic and atraumatic Neck is supple no JVD no goiter no lymphadenopathy Chest exam reveals a few scattered rhonchi no wheezing Cardiac exam reveals regular heart sounds no murmurs Abdomen is soft obese with right upper quadrant tenderness no organomegaly Extremity exam reveals no edema - Labs CBC & Chem 7: 01/08/17 06:35 01/08/17 06:35 Labs: Abnormal Lab Results - Last 24 Hours (Table) 01/08/17 Range/Units 06:35 Chloride 108 H (98-107) mmol/L BUN 6 L (7-17) mg/dL AST 406 H (14-36) U/L ALT 316 H (9-52) U/L Assessment and Plan Plan: #1 right upper quadrant abdominal pain was nausea vomiting and elevated liver enzymes Gastroenterology input reviewed no further workup is recommended at this time #2 chronic nonalcoholic liver disease likely related to her psychiatry medications, psychiatry consult was requested to reassess her medications #3 intractable nausea and vomiting maintained on Zofran as needed and Protonix #4 hypokalemia on presentation, corrected #5 history of depression, anxiety, post traumatic stress disorder, schizophrenia , and bipolar disorder followed by psychiatry maintained on multiple medications #6 history of asthma stable at this time without evidence of exacerbation #7 underlying history of hypertension well-controlled on current medications #8 underlying history of fibromyalgia At this time patient is still symptomatic with nausea and right upper quadrant abdominal pain Will continue with Zofran possible discharge to home tomorrow
[2017-01-08] MEDS: LITHIUM CARBONATE 300 MG CAP PO SCH (20:45)
[2017-01-08] MEDS: TOPIRAMATE 100 MG TAB PO SCH (20:46)
[2017-01-08] MEDS: cloNIDine HCL 0.1 MG TAB PO SCH (20:46)
[2017-01-08] MEDS: clonazePAM 1 MG TAB PO SCH (20:58)
[2017-01-09] MEDS: ONDANSETRON 4 MG/2 ML VIAL IVP PRN ×2 (00:49→11:35)
[2017-01-09] MEDS: HYDROmorphone 1 MG/ML 1 ML SYRINGE IV PRN ×4 (00:51→11:25)
[2017-01-09] MEDS: SODIUM CHLORIDE 0.9% 1,000 ML IV SCH ×2 (01:11→09:43)
[2017-01-09] MEDS: LEVOTHYROXINE 125 MCG TAB PO SCH (06:39)
[2017-01-09 08:15] LABS: Basophils % (A) 1 %; CH 29.5; CHCM 31.8; Eosinophils # (A) 0.4 k/uL (0-0.7); Eosinophils % (A) 7 %; HCT 40.4 % (34.0-46.0); HDW 2.61; HGB 13.1 gm/dL (11.4-16.0); Luc # (Auto) 0.11; Luc % (Auto) 2; Lymphocytes # (A) 2.1 k/uL (1.0-4.8); Lymphocytes % (A) 32 %; MCH 30.3 pg (25.0-35.0); MCHC 32.4 g/dL (31.0-37.0); MCV 93.3 fL (80.0-100.0); Mean Platelet Volume 7.1; Monocytes # (A) 0.4 k/uL (0-1.0); Monocytes % (A) 6 %; Neutrophils # (A) 3.5 k/uL (1.3-7.7); Neutrophils % (A) 53 %; RBC 4.33 m/uL (3.80-5.40); RDW 13.6 % (11.5-15.5); WBC 6.5 k/uL (3.8-10.6); WBC (Perox) 6.69
[2017-01-09 08:25] LABS: Anion Gap 10 mmol/L; Calcium 9.4 mg/dL (8.4-10.2); Carbon Dioxide 25 mmol/L (22-30); Chloride 108 mmol/L (98-107); Glucose 92 mg/dL (74-99); Non-African American GFR(MDRD) >60 (>60 ml/min/1.73 sqM); Sodium 143 mmol/L (137-145); Total Bilirubin 0.7 mg/dL (0.2-1.3); Total Protein 7.3 g/dL (6.3-8.2)
[2017-01-09 08:35] LABS: Blood Urea Nitrogen 7 mg/dL (7-17); Potassium 3.6 mmol/L (3.5-5.1)
[2017-01-09 08:36] LABS: ALT 268 U/L (9-52); AST 307 U/L (14-36); Alkaline Phosphatase 68 U/L (38-126)
[2017-01-09] MEDS: PANTOPRAZOLE 40 MG TABLET PO SCH (08:57)
[2017-01-09] MEDS: FLUoxetine HCL 20 MG CAP PO SCH (08:57)
[2017-01-09] MEDS: LORATADINE 10 MG TAB PO SCH (08:57)
[2017-01-09] MEDS: HYDROCHLOROTHIAZIDE 25 MG TAB PO SCH (08:57)
[2017-01-09] MEDS: HEPARIN SODIUM,PORCINE 5,000 UNIT/ML 1 ML VIAL SQ SCH (09:01)
[2017-01-09] MEDS: clonazePAM 0.5 MG TAB PO SCH (09:16)
[2017-01-09] MEDS: ALBUTEROL NEBULIZED 2.5 MG/3 ML INHALATION SCH (09:53)
--- NOTE | 2017-01-09 13:50 | P.DS ---
Providers Date of admission: 01/09/17 08:19 Expected date of discharge: 01/09/17 Attending physician: Elbert Huff Primary care physician: Estephania Mosher [facility] Course: This is a 21-year-old female, patient of Dr. Mosher. She has a known past medical history of chronic liver cirrhosis secondary to psychiatric medications , hypothyroidism, anxiety, depression, post traumatic stress disorder, schizophrenia, bipolar, fibromyalgia, asthma and hypertension. Patient presents to the emergency room with complaints of right upper quadrant abdominal pain and vomiting that started yesterday. She reports the vomiting containing mostly food and then bile. She came into the emergency room for further evaluation. KUB was negative. She was found to have elevated AST of 583 and ALT of 412. GI service was consulted. They have ordered an ultrasound of the abdomen. Computed tomography scan the abdomen has been ordered as well. Hepatitis panel is negative. White count was elevated 11.2. Patient does admit to feeling warm at times. But denies any actual fever or chills. Denies any bowel movement changes or urinary symptoms. She had her gallbladder removed about [address] Sagrario gerardo. An EGD was completed in August [address] Sarmiento had revealed small hiatal hernia and gastritis and gastroparesis. GI service is trying to obtain medical records from every 4 to hospital. patient was evaluated by gastroenterology no intervention was recommended at this time Patient was also evaluated by psychiatry, no change on her medication was done at this time she was advised to follow-up was Dr. Morris her psychiatrist for reevaluation of her psychiatry medications to assess if any of them is causing increase in liver enzymes. Patient complaint of nausea and vomiting subsided, she was given a prescription for Zofran 4 mg by mouth every 6 hours when necessary She will follow-up with her primary care physician Dr. Mosher within 1 week Patient should also follow-up was Dr. 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 Morris psychiatrist Patient Condition at Discharge: Stable Plan - Discharge Summary Discharge Medication List Albuterol Inhaler [Ventolin Hfa Inhaler] 2 puff INHALATION RT-Q6H PRN 08/27/15 [ History] [place] Carbonate 600 mg PO HS 08/27/15 [History] Omeprazole [PriLOSEC] 20 mg PO AC-BID 08/27/15 [History] Topiramate [Topamax] 100 mg PO HS 12/12/15 [History] Norgestimate-Ethinyl Estradiol [[place]-L[place]ah 28 Tablet] 1 tab PO DAILY 05/10/16 [ History] FLUoxetine HCL [Sarafem] 60 mg PO QAM 07/05/16 [History] Famotidine [Pepcid] 20 mg PO DAILY #60 tablet 07/05/16 [Rx] Loratadine 10 mg PO DAILY 07/05/16 [History] cloNIDine HCL [Clonidine HCl] 0.1 mg PO HS 07/05/16 [History] Metoclopramide [Reglan] 10 mg PO DAILY PRN 10/20/16 [History] Hydrochlorothiazide 25 mg PO DAILY 01/06/17 [History] Levothyroxine Sodium [Synthroid] 125 mcg PO DAILY 01/06/17 [History] Ondansetron Odt [Zofran ODT] 4 mg PO DAILY PRN 01/06/17 [History] clonazePAM [KlonoPIN] 0.5 mg PO DAILY 01/06/17 [History] clonazePAM [KlonoPIN] 1.5 mg PO HS 01/06/17 [History] Follow up Appointment(s)/Referral(s): Justin Rocha MD [STAFF PHYSICIAN] - 1 Week Estephania Mosher MD [Primary Care Provider] - 1-2 days
[2017-01-09 14:44] VITALS: BP 109/71; PULSE 67; RESP 16; TEMP 98.6
== END 2017-01-09 16:47 | disposition home or self-care (01) | DRG 392 ==
LOC: EC 18:22 → 6PED 22:16 → OBSVTOIN 01-09 08:19
PROVIDERS: ADMIT Internal Medicine; ATTEND Internal Medicine
DX: R10.11 Right upper quadrant pain (principal); F33.9 Major depressive disorder, recurrent, unspecified; F31.81 Bipolar II disorder; K74.60 Unspecified cirrhosis of liver; I10 Essential (primary) hypertension; E66.01 Morbid (severe) obesity due to excess calories; E03.9 Hypothyroidism, unspecified; E87.6 Hypokalemia; F20.9 Schizophrenia, unspecified; F40.01 Agoraphobia with panic disorder; F40.10 Social phobia, unspecified; F43.10 Post-traumatic stress disorder, unspecified; J45.20 Mild intermittent asthma, uncomplicated; K20.0 Eosinophilic esophagitis; K21.9 Gastro-esophageal reflux disease without esophagitis; K44.9 Diaphragmatic hernia without obstruction or gangrene; K75.81 Nonalcoholic steatohepatitis (NASH); M79.7 Fibromyalgia; G43.909 Migraine, unspecified, not intractable, without status migrainosus; F41.9 Anxiety disorder, unspecified; R11.2 Nausea with vomiting, unspecified; R74.0 Nonspecific elevation of levels of transaminase and lactic acid dehydrogenase [LDH]; K58.9 Irritable bowel syndrome, unspecified; Z68.42 Body mass index [BMI] 45.0-49.9, adult; Z79.899 Other long term (current) drug therapy; Z88.5 Allergy status to narcotic agent; Z88.0 Allergy status to penicillin; Z88.6 Allergy status to analgesic agent; Z91.040 Latex allergy status
CPT/HCPCS: 36415; 74000; 74177; 76705; 80053; 80074; 81001; 82150; 83520; 83690; 83735; 85025; 85610; 90732; 94640; 96361; 96372; 96374; 96375; 96376; 99285

== ENCOUNTER 2017-01-23 12:58 | Emergency (ER) | payer OTHER ==
[2017-01-23] MEDS ORDERED: SODIUM CHLORIDE 0.9% 1,000 ML IV STA (13:27)
[2017-01-23] MEDS ORDERED: METOCLOPRAMIDE 5 MG/ML 2 ML VIAL IVP STA (13:27)
[2017-01-23 14:24] LABS: Basophils # (A) 0.1 k/uL (0-0.2); Basophils % (A) 1 %; CH 29.9; CHCM 33.1; Eosinophils # (A) 0.7 k/uL (0-0.7); Eosinophils % (A) 6 %; HCT 43.6 % (34.0-46.0); HDW 2.65; HGB 14.3 gm/dL (11.4-16.0); Luc # (Auto) 0.14; Luc % (Auto) 1; Lymphocytes # (A) 2.7 k/uL (1.0-4.8); Lymphocytes % (A) 25 %; MCH 29.7 pg (25.0-35.0); MCHC 32.7 g/dL (31.0-37.0); MCV 90.7 fL (80.0-100.0); Mean Platelet Volume 7.5; Monocytes # (A) 0.4 k/uL (0-1.0); Monocytes % (A) 4 %; Neutrophils # (A) 6.9 k/uL (1.3-7.7); Neutrophils % (A) 64 %; RDW 13.3 % (11.5-15.5); WBC 10.9 k/uL (3.8-10.6)
--- NOTE | 2017-01-23 14:28 | ED ---
Abdominal Pain HPI - General Chief Complaint: Abdominal Pain Stated Complaint: Vomiting Time Seen by Provider: 01/23/17 13:23 Source: patient, RN notes reviewed Mode of arrival: ambulatory Limitations: no limitations - History of Present Illness Initial Comments: 21-year-old female presented emergency department for abdominal pain and vomiting. Patient has a history of cirrhosis/elevated liver and liver enzymes secondary to her medications for psychiatric problems. Patient also states that she has eosinophilic esophagitis. Patient states that she was admitted the hospital discharge last week. Patient states that symptoms are getting worse again. Patient states also tried lowering her psychiatric medications which has now caused her depression/PTSD to bothering states that she is suicidal plan. Patient denies any hematemesis copremesis. - Related Data Home Medications Medication Instructions Recorded Confirmed Albuterol Inhaler [Ventolin Hfa 2 puff INHALATION RT-Q6H PRN 08/27/15 01/23/17 Inhaler] [place] Carbonate 600 mg PO HS 08/27/15 01/23/17 Omeprazole [PriLOSEC] 20 mg PO AC-BID 08/27/15 01/23/17 Topiramate [Topamax] 100 mg PO HS 08/27/15 01/23/17 Norgestimate-Ethinyl Estradiol 1 tab PO DAILY 05/10/16 01/23/17 [[place] 28 Tablet] Loratadine 10 mg PO DAILY 07/05/16 01/23/17 cloNIDine HCL [Clonidine HCl] 0.1 mg PO HS 07/05/16 01/23/17 Metoclopramide [Reglan] 10 mg PO DAILY PRN 10/20/16 01/23/17 Hydrochlorothiazide 25 mg PO DAILY 01/06/17 01/23/17 Levothyroxine Sodium [Synthroid] 125 mcg PO DAILY 01/06/17 01/23/17 clonazePAM [KlonoPIN] 0.5 mg PO DAILY 01/06/17 01/23/17 clonazePAM [KlonoPIN] 1.5 mg PO HS 01/06/17 01/23/17 FLUoxetine HCL [PROzac] 40 mg PO DAILY 01/23/17 01/23/17 Ondansetron HCl [Zofran] 4 mg PO DAILY PRN 01/23/17 01/23/17 Previous Rx's Medication Instructions Recorded Famotidine [Pepcid] 20 mg PO DAILY #60 tablet 10/20/16 Ondansetron Odt [Zofran Odt] 4 mg PO Q8HR PRN #10 tab 01/23/17 Allergies Allergy/AdvReac Type Severity Reaction Status Date / Time fentanyl Allergy Rash/Hives Verified 01/23/17 14:03 latex Allergy Rash/Hives Verified 01/23/17 14:03 Penicillins Allergy Rash/Hives Verified 01/23/17 14:03 ibuprofen [From Motrin] AdvReac Diarrhea Verified 01/23/17 14:03 iodine AdvReac Itching Verified 01/23/17 14:03 GRAPE JUICE Allergy Swelling Uncoded 01/23/17 13:19 SEA FOOD Allergy Swelling Uncoded 01/23/17 14:03 Review of Systems ROS Statement: Those systems with pertinent positive or pertinent negative responses have been documented in the HPI. ROS Other: All systems not noted in ROS Statement are negative. Past Medical History Past Medical History: Asthma, Fibromyalgia, GERD/Reflux, Liver Disease, Thyroid Disorder Additional Past Medical History / Comment(s): Cirrhosis of the liver, esophagus disease, migraines, dysphagia, tachycardia, ulcer History of Any Multi-Drug Resistant Organisms: None Reported Past Surgical History: Appendectomy, Cholecystectomy, Tonsillectomy Additional Past Surgical History / Comment(s): Septum repair Past Anesthesia/Blood Transfusion Reactions: No Reported Reaction Past Psychological History: Anxiety, Depression, PTSD Smoking Status: Never smoker Past Alcohol Use History: None Reported Past Drug Use History: None Reported - Past Family History Mother Family Medical History: No Reported History Father Additional Family Medical History / Comment(s): cirrhosis, esophagus disease General Exam Limitations: no limitations General appearance: alert, in no apparent distress, obese Neck exam: Present: normal inspection. Absent: tenderness, meningismus, lymphadenopathy Respiratory exam: Present: normal lung sounds bilaterally. Absent: respiratory distress, wheezes, rales, rhonchi, stridor Cardiovascular Exam: Present: regular rate, normal rhythm, normal heart sounds. Absent: systolic murmur, diastolic murmur, rubs, gallop, clicks GI/Abdominal exam: Present: soft, tenderness (Moderate right upper quadrant), normal bowel sounds. Absent: distended, guarding, rebound, rigid Back exam: Absent: CVA tenderness (R), CVA tenderness (L) Skin exam: Present: warm, dry, intact, normal color. Absent: rash Course Vital Signs 01/23/17 01/23/17 01/23/17 13:16 13:49 14:01 Temperature 98.6 F Pulse Rate 102 H 69 79 Respiratory 18 15 18 Rate Blood Pressure 166/99 108/69 99/59 O2 Sat by Pulse 97 99 96 Oximetry 01/23/17 01/23/17 15:16 15:20 Temperature 97.8 F Pulse Rate 86 89 Respiratory 18 16 Rate Blood Pressure 128/67 128/67 O2 Sat by Pulse 97 99 Oximetry Medical Decision Making - Medical Decision Making 21-year-old female presented for nausea vomiting. Patient has chronic issues with this. Patient is better after antiemetics and fluids. Lab work is improved from prior laboratory. Patient continues to have mild elevation of her liver functions. Patient was evaluated by [facility] and she denies being suicidal or homicidal. Patient will be discharged and she is an appointment with her psychiatrist/therapist. Patient also has multiple nurses unit. Patient will be discharged this time with Claudia. - Lab Data Result diagrams: 01/23/17 13:50 01/23/17 13:50 Lab Results 01/23/17 01/23/17 01/23/17 Range/Units 13:50 13:50 14:11 WBC 10.9 H (3.8-10.6) k/uL RBC 4.80 (3.80-5.40) m/uL Hgb 14.3 (11.4-16.0) gm/dL Hct 43.6 (34.0-46.0) % MCV 90.7 (80.0-100.0) fL MCH 29.7 (25.0-35.0) pg MCHC 32.7 (31.0-37.0) g/dL RDW 13.3 (11.5-15.5) % Plt Count 322 (150-450) k/uL Neutrophils % 64 % Lymphocytes % 25 % Monocytes % 4 % Eosinophils % 6 % Basophils % 1 % Neutrophils # 6.9 (1.3-7.7) k/uL Lymphocytes # 2.7 (1.0-4.8) k/uL Monocytes # 0.4 (0-1.0) k/uL Eosinophils # 0.7 (0-0.7) k/uL Basophils # 0.1 (0-0.2) k/uL Sodium 139 (137-145) mmol/L Potassium 3.8 (3.5-5.1) mmol/L Chloride 107 (98-107) mmol/L Carbon Dioxide 20 L (22-30) mmol/L Anion Gap 12 mmol/L BUN 10 (7-17) mg/dL Creatinine 1.04 (0.52-1.04) mg/dL Est GFR (MDRD) Af Amer >60 (>60 ml/min/1.73 sqM) Est GFR (MDRD) Non-Af >60 (>60 ml/min/1.73 sqM) Glucose 121 H (74-99) mg/dL Calcium 10.0 (8.4-10.2) mg/dL Total Bilirubin 0.6 (0.2-1.3) mg/dL AST 148 H (14-36) U/L ALT 128 H (9-52) U/L Alkaline Phosphatase 75 (38-126) U/L Total Protein 8.0 (6.3-8.2) g/dL Albumin 4.2 (3.5-5.0) g/dL Amylase 44 (30-110) U/L Lipase 111 (23-300) U/L Urine Color Yellow Urine Appearance Cloudy H (Clear) Urine pH 6.5 (5.0-8.0) Ur Specific [place] 1.013 (1.001-1.035) Urine Protein Trace H (Negative) Urine Glucose (UA) Negative (Negative) Urine Ketones Negative (Negative) Urine Blood Negative (Negative) Urine Nitrite Negative (Negative) Urine Bilirubin Negative (Negative) Urine Urobilinogen <2.0 (<2.0) mg/dL Ur Leukocyte Esterase Small H (Negative) Urine RBC 1 (0-5) /hpf Urine WBC 5 (0-5) /hpf Ur Squamous Epith Cells 35 H (0-4) /hpf Urine Bacteria Rare H (None) /hpf Urine Opiates Screen Detected H (NotDetected) Ur Oxycodone Screen Not Detected (NotDetected) Urine Methadone Screen Not Detected (NotDetected) Ur Propoxyphene Screen Not Detected (NotDetected) Ur Barbiturates Screen Not Detected (NotDetected) U Tricyclic Antidepress Not Detected (NotDetected) Ur Phencyclidine Scrn Not Detected (NotDetected) Ur Amphetamines Screen Not Detected (NotDetected) U Methamphetamines Scrn Not Detected (NotDetected) U Benzodiazepines Scrn Detected H (NotDetected) Urine Cocaine Screen Not Detected (NotDetected) U Marijuana (THC) Screen Not Detected (NotDetected) Disposition Clinical Impression: Nausea & vomiting, Transaminitis, Esophagitis, Depression Disposition: HOME SELF-CARE Condition: Stable Instructions: Acute Nausea and Vomiting (ED) Additional Instructions: Please return to the Emergency Department if symptoms worsen or any other concerns. Prescriptions: Ondansetron Odt [Zofran Odt] 4 mg PO Q8HR PRN #10 tab PRN Reason: Nausea Time of Disposition: 15:35
[2017-01-23 14:32] LABS: Appearance,Urine Cloudy (Clear); Bacteria,Urine Rare /hpf; Bilirubin,Urine Negative (Negative); Glucose,Urine (UA) Negative (Negative); Ketones,Urine Negative (Negative); Leukocyte Esterase,Urine Small (Negative); Nitrite,Urine Negative (Negative); PH, Urine 6.5 (5.0-8.0); Particle Count 27246; Protein,Urine Trace (Negative); RBC,Urine 1 /hpf (0-5); Specific Gravity,Urine 1.013 (1.001-1.035); Squamous Epithelial Cell,Urine 35 /hpf (0-4); UA Billing (MACRO vs. MICRO) MICRO; Urobilinogen,Urine <2.0 mg/dL (<2.0); WBC,Urine 5 /hpf (0-5)
[2017-01-23 14:40] LABS: ALT 128 U/L (9-52); AST 148 U/L (14-36); Alkaline Phosphatase 75 U/L (38-126); Amylase 44 U/L (30-110); Anion Gap 12 mmol/L; Blood Urea Nitrogen 10 mg/dL (7-17); Carbon Dioxide 20 mmol/L (22-30); Chloride 107 mmol/L (98-107); Glucose 121 mg/dL (74-99); Non-African American GFR(MDRD) >60 (>60 ml/min/1.73 sqM); Potassium 3.8 mmol/L (3.5-5.1); Sodium 139 mmol/L (137-145); Total Bilirubin 0.6 mg/dL (0.2-1.3)
[2017-01-23 15:20] VITALS: RESP 16
[2017-01-23 15:48] VITALS: BP 109/70; PULSE 65; TEMP 97.6
== END 2017-01-23 15:47 | disposition home or self-care (01) ==
LOC: EC 12:58
DX: K20.9 Esophagitis, unspecified (principal); R11.2 Nausea with vomiting, unspecified; R74.0 Nonspecific elevation of levels of transaminase and lactic acid dehydrogenase [LDH]; F32.9 Major depressive disorder, single episode, unspecified; K21.9 Gastro-esophageal reflux disease without esophagitis; E07.9 Disorder of thyroid, unspecified; F43.10 Post-traumatic stress disorder, unspecified; F41.9 Anxiety disorder, unspecified; Z79.899 Other long term (current) drug therapy; Z79.3 Long term (current) use of hormonal contraceptives; Z91.040 Latex allergy status; Z88.0 Allergy status to penicillin; Z88.6 Allergy status to analgesic agent; Z91.013 Allergy to seafood; Z88.8 Allergy status to other drugs, medicaments and biological substances; Z91.018 Allergy to other foods; Z87.19 Personal history of other diseases of the digestive system; Z90.49 Acquired absence of other specified parts of digestive tract
CPT/HCPCS: 82075; 36415; 80053; 82150; 83690; 85025; 81001; 80306; 99284; 96374; 96361 ×2; J2765

== ENCOUNTER 2017-02-13 19:25 | Emergency (ER) | payer OTHER ==
[2017-02-13 20:00] VITALS: RESP 18
[2017-02-13] MEDS ORDERED: SODIUM CHLORIDE 0.9% 500 ML IV STA (20:45)
--- NOTE | 2017-02-13 20:48 | ED ---
General Adult HPI - General Chief complaint: GI Bleed Stated complaint: Rectual bleeding Time Seen by Provider: 02/13/17 20:36 Source: patient, RN notes reviewed Mode of arrival: ambulatory Limitations: no limitations - History of Present Illness Initial comments: 21-year-old female presents to the emergency Department chief complaint of bright red blood per rectum. Patient states the last 2 weeks or so she's noticed bright red blood per rectum and lower abdominal cramping. Patient states she had some lightheadedness with this as well. Patient does suffer from irritable bowel syndrome. Patient states she's never had anything like this before. Patient states she was concerned due to the continued blood so she thought that she should be evaluated. Patient states it's only when she has a bowel movement. Patient states she is bright red in the stool appears to be normal. Patient denies any rectal pain with this.Patient denies any recent fever, chills, shortness of breath, chest pain, back pain, nausea vomiting, numbness or tingling, dysuria or hematuria, constipation or diarrhea, headaches or visual changes, or any other current symptoms. - Related Data Home Medications Medication Instructions Recorded Confirmed Albuterol Inhaler [Ventolin Hfa 2 puff INHALATION RT-Q6H PRN 08/27/15 02/13/17 Inhaler] [place] Carbonate 600 mg PO HS 08/27/15 02/13/17 Omeprazole [PriLOSEC] 20 mg PO AC-BID 08/27/15 02/13/17 Topiramate [Topamax] 100 mg PO HS 08/27/15 02/13/17 Norgestimate-Ethinyl Estradiol 1 tab PO DAILY 05/10/16 02/13/17 [[place] 28 Tablet] Loratadine 10 mg PO DAILY 07/05/16 02/13/17 cloNIDine HCL [Clonidine HCl] 0.1 mg PO HS 07/05/16 02/13/17 Metoclopramide [Reglan] 10 mg PO QAM 10/20/16 02/13/17 Hydrochlorothiazide 25 mg PO DAILY 01/06/17 02/13/17 Levothyroxine Sodium [Synthroid] 125 mcg PO DAILY 01/06/17 02/13/17 FLUoxetine HCL [PROzac] 40 mg PO DAILY 01/23/17 02/13/17 Ondansetron HCl [Zofran] 4 mg PO HS 01/23/17 02/13/17 Ergocalciferol [Vitamin D2] 50,000 unit PO BELL 02/13/17 02/13/17 Flunisolide [Aerospan] 2 puff INHALATION RT-BID 02/13/17 02/13/17 clonazePAM [KlonoPIN] 0.5 mg PO QAM 02/13/17 02/13/17 clonazePAM [KlonoPIN] 1.5 mg PO HS 02/13/17 02/13/17 Previous Rx's Medication Instructions Recorded Famotidine [Pepcid] 20 mg PO DAILY #60 tablet 07/05/16 Allergies Allergy/AdvReac Type Severity Reaction Status Date / Time fentanyl Allergy Rash/Hives Verified 02/13/17 21:05 grape Allergy Anaphylaxis Verified 02/13/17 21:05 Iodinated Contrast Media - Allergy Anaphylaxis Verified 02/13/17 21:05 Oral and latex Allergy Rash/Hives Verified 02/13/17 21:05 Penicillins Allergy Anaphylaxis Verified 02/13/17 21:05 ibuprofen [From Motrin] AdvReac GI Bleed Verified 02/13/17 21:05 prazosin AdvReac Nausea & Verified 02/13/17 21:09 Vomiting Seafood Allergy Anaphylaxis Uncoded 02/13/17 21:05 Review of Systems ROS Statement: Those systems with pertinent positive or pertinent negative responses have been documented in the HPI. ROS Other: All systems not noted in ROS Statement are negative. Past Medical History Past Medical History: Asthma, Fibromyalgia, GERD/Reflux, Liver Disease, Thyroid Disorder Additional Past Medical History / Comment(s): Cirrhosis of the liver, esophagus disease, migraines, dysphagia, tachycardia, ulcer History of Any Multi-Drug Resistant Organisms: None Reported Past Surgical History: Appendectomy, Cholecystectomy, Tonsillectomy Additional Past Surgical History / Comment(s): Septum repair Past Anesthesia/Blood Transfusion Reactions: No Reported Reaction Past Psychological History: Anxiety, Depression, PTSD Smoking Status: Never smoker Past Alcohol Use History: None Reported Past Drug Use History: None Reported - Past Family History Mother Family Medical History: No Reported History Father Additional Family Medical History / Comment(s): cirrhosis, esophagus disease General Exam - General Exam Comments Initial Comments: General: The patient is awake and alert, in no distress, and does not appear acutely ill. Eye: Pupils are equal, round and reactive to light, extra-ocular movements are intact; there is normal conjunctiva bilaterally. No signs of icterus. Ears, nose, mouth and throat: There are moist mucous membranes. Neck: The neck is supple, there is no tenderness. Cardiovascular: There is a regular rate and rhythm. No murmur, rub or gallop is appreciated. Respiratory: Lungs are clear to auscultation, respirations are non-labored, breath sounds are equal. No wheezes, stridor, rales, or rhonchi. Gastrointestinal: Soft, non-distended, non-tender abdomen without masses or organomegaly noted. There is no rebound or guarding present. No CVA tenderness. Bowel sounds are unremarkable. Back: There is no tenderness to palpation in the midline. There is no obvious deformity. No rashes noted. Musculoskeletal: Normal ROM, no tenderness, There is no pedal edema. There is no calf tenderness or swelling. Sensation intact. Pulses equal bilaterally 2+. Neurological: CN II-XII intact, There are no obvious motor or sensory deficits. Coordination appears grossly intact. Speech is normal. Skin: Skin is warm and dry and no rashes or lesions are noted. Psychiatric: Cooperative, appropriate mood & affect, normal judgment. Limitations: no limitations Course Vital Signs 02/13/17 02/13/17 20:00 21:05 Temperature 98.0 F Pulse Rate 90 Pulse Rate [ 80 Supine] Respiratory 18 18 Rate Blood Pressure 106/62 Blood Pressure 111/75 [Sitting] Blood Pressure 115/82 [Standing] Blood Pressure 109/59 [Supine] O2 Sat by Pulse 97 98 Oximetry Medical Decision Making - Medical Decision Making 21-year-old female presents emergency department with a chief complaint of rectal bleeding.at this time patient's laboratory is reviewed. Patient does appear to be still call positive hemoglobin is stable. vital signs are reviewed and stable as well. Patient does have elevated liver enzymes however patient does have chronic liver disease. we did offer the patient and family admission due to the elevated liver enzymes at this time he states he do not want to stay. We will respect their wishes and allow them to go home.This time we discussed continued follow-up with Dr. Drake. We discussed follow-up with Dr. Charlton for the GI bleed we discussed return parameters all the questions. He stated he understood and plan. They will be discharged. - Lab Data Result diagrams: 02/13/17 21:21 02/13/17 21:21 Lab Results 02/13/17 02/13/17 02/13/17 Range/Units 21:21 21:21 21:21 WBC 11.3 H (3.8-10.6) k/uL RBC 4.48 (3.80-5.40) m/uL Hgb 13.1 (11.4-16.0) gm/dL Hct 40.4 (34.0-46.0) % MCV 90.3 (80.0-100.0) fL MCH 29.2 (25.0-35.0) pg MCHC 32.3 (31.0-37.0) g/dL RDW 13.5 (11.5-15.5) % Plt Count 313 (150-450) k/uL Neutrophils % 68 % Lymphocytes % 21 % Monocytes % 4 % Eosinophils % 4 % Basophils % 1 % Neutrophils # 7.7 (1.3-7.7) k/uL Lymphocytes # 2.4 (1.0-4.8) k/uL Monocytes # 0.5 (0-1.0) k/uL Eosinophils # 0.5 (0-0.7) k/uL Basophils # 0.1 (0-0.2) k/uL PT (9.0-12.0) sec INR (<1.1) APTT (22.0-30.0) sec Sodium 141 (137-145) mmol/L Potassium 3.5 (3.5-5.1) mmol/L Chloride 107 (98-107) mmol/L Carbon Dioxide 21 L (22-30) mmol/L Anion Gap 13 mmol/L BUN 9 (7-17) mg/dL Creatinine 0.80 (0.52-1.04) mg/dL Est GFR (MDRD) Af Amer >60 (>60 ml/min/1.73 sqM) Est GFR (MDRD) Non-Af >60 (>60 ml/min/1.73 sqM) Glucose 101 H (74-99) mg/dL Calcium 9.5 (8.4-10.2) mg/dL Total Bilirubin 0.3 (0.2-1.3) mg/dL AST 424 H (14-36) U/L ALT 259 H (9-52) U/L Alkaline Phosphatase 79 (38-126) U/L Total Protein 7.1 (6.3-8.2) g/dL Albumin 3.9 (3.5-5.0) g/dL Urine Color Urine Appearance (Clear) Urine pH (5.0-8.0) Ur Specific [place] (1.001-1.035) Urine Protein (Negative) Urine Glucose (UA) (Negative) Urine Ketones (Negative) Urine Blood (Negative) Urine Nitrite (Negative) Urine Bilirubin (Negative) Urine Urobilinogen (<2.0) mg/dL Ur Leukocyte Esterase (Negative) Urine RBC (0-5) /hpf Urine WBC (0-5) /hpf Ur Squamous Epith Cells (0-4) /hpf Urine Bacteria (None) /hpf Urine Mucus (None) /hpf Stool Occult Blood Positive H (Negative) 02/13/17 02/13/17 Range/Units 21:21 21:22 WBC (3.8-10.6) k/uL RBC (3.80-5.40) m/uL Hgb (11.4-16.0) gm/dL Hct (34.0-46.0) % MCV (80.0-100.0) fL MCH (25.0-35.0) pg MCHC (31.0-37.0) g/dL RDW (11.5-15.5) % Plt Count (150-450) k/uL Neutrophils % % Lymphocytes % % Monocytes % % Eosinophils % % Basophils % % Neutrophils # (1.3-7.7) k/uL Lymphocytes # (1.0-4.8) k/uL Monocytes # (0-1.0) k/uL Eosinophils # (0-0.7) k/uL Basophils # (0-0.2) k/uL PT 10.8 (9.0-12.0) sec INR 1.1 (<1.1) APTT 23.7 (22.0-30.0) sec Sodium (137-145) mmol/L Potassium (3.5-5.1) mmol/L Chloride (98-107) mmol/L Carbon Dioxide (22-30) mmol/L Anion Gap mmol/L BUN (7-17) mg/dL Creatinine (0.52-1.04) mg/dL Est GFR (MDRD) Af Amer (>60 ml/min/1.73 sqM) Est GFR (MDRD) Non-Af (>60 ml/min/1.73 sqM) Glucose (74-99) mg/dL Calcium (8.4-10.2) mg/dL Total Bilirubin (0.2-1.3) mg/dL AST (14-36) U/L ALT (9-52) U/L Alkaline Phosphatase (38-126) U/L Total Protein (6.3-8.2) g/dL Albumin (3.5-5.0) g/dL Urine Color Yellow Urine Appearance Cloudy H (Clear) Urine pH 6.5 (5.0-8.0) Ur Specific [place] 1.014 (1.001-1.035) Urine Protein Negative (Negative) Urine Glucose (UA) Negative (Negative) Urine Ketones Negative (Negative) Urine Blood Negative (Negative) Urine Nitrite Negative (Negative) Urine Bilirubin Negative (Negative) Urine Urobilinogen <2.0 (<2.0) mg/dL Ur Leukocyte Esterase Negative (Negative) Urine RBC 2 (0-5) /hpf Urine WBC 2 (0-5) /hpf Ur Squamous Epith Cells 5 H (0-4) /hpf Urine Bacteria Rare H (None) /hpf Urine Mucus Rare H (None) /hpf Stool Occult Blood (Negative) - Radiology Data Radiology results: report reviewed, image reviewed Disposition Clinical Impression: GI bleed, Cirrhosis, Elevated liver enzymes Disposition: HOME SELF-CARE Condition: Stable Instructions: Gastrointestinal Bleeding (ED) Additional Instructions: Please use medication as discussed. Please follow up with family doctor if symptoms have not improved over the next two days. Please return to the emergency room if your symptoms increase or worsen or for any other concerns. Referrals: Estephania Mosher MD [Primary Care Provider] - 1-2 days Time of Disposition: 22:37
[2017-02-13 21:34] LABS: Basophils # (A) 0.1 k/uL (0-0.2); Basophils % (A) 1 %; CH 29.8; CHCM 33.1; Eosinophils # (A) 0.5 k/uL (0-0.7); Eosinophils % (A) 4 %; HCT 40.4 % (34.0-46.0); HDW 2.76; HGB 13.1 gm/dL (11.4-16.0); Luc # (Auto) 0.17; Luc % (Auto) 2; Lymphocytes # (A) 2.4 k/uL (1.0-4.8); Lymphocytes % (A) 21 %; MCH 29.2 pg (25.0-35.0); MCHC 32.3 g/dL (31.0-37.0); MCV 90.3 fL (80.0-100.0); Mean Platelet Volume 7.3; Monocytes # (A) 0.5 k/uL (0-1.0); Monocytes % (A) 4 %; Neutrophils # (A) 7.7 k/uL (1.3-7.7); Neutrophils % (A) 68 %; RBC 4.48 m/uL (3.80-5.40); RDW 13.5 % (11.5-15.5); WBC 11.3 k/uL (3.8-10.6); WBC (Perox) 11.42
--- NOTE | 2017-02-13 21:37 | XR ---
EXAMINATION TYPE: XR abdomen 2V DATE OF EXAM: 02/13/2017 COMPARISON: NONE HISTORY: Pain TECHNIQUE: Single supine and upright KUB image of the abdomen is obtained FINDINGS: Small bowel demonstrates no evidence for dilatation or air fluid levels. Gas and fecal material is seen in non-distended colon. No convincing evidence for pneumoperitoneum. No unusual calcifications. The lung bases are clear. The osseous structures are intact. IMPRESSION: 1. Overall nonobstructive bowel gas pattern.
[2017-02-13 21:45] LABS: INR 1.1 (<1.1); Partial Thromboplastin Time 23.7 sec (22.0-30.0); Prothrombin Time 10.8 sec (9.0-12.0)
[2017-02-13 21:46] LABS: ALT 259 U/L (9-52); AST 424 U/L (14-36); Alkaline Phosphatase 79 U/L (38-126); Anion Gap 13 mmol/L; Blood Urea Nitrogen 9 mg/dL (7-17); Calcium 9.5 mg/dL (8.4-10.2); Carbon Dioxide 21 mmol/L (22-30); Chloride 107 mmol/L (98-107); Glucose 101 mg/dL (74-99); Non-African American GFR(MDRD) >60 (>60 ml/min/1.73 sqM); Potassium 3.5 mmol/L (3.5-5.1); Sodium 141 mmol/L (137-145); Total Bilirubin 0.3 mg/dL (0.2-1.3); Total Protein 7.1 g/dL (6.3-8.2)
[2017-02-13 22:03] LABS: Appearance,Urine Cloudy (Clear); Bacteria,Urine Rare /hpf; Bilirubin,Urine Negative (Negative); Glucose,Urine (UA) Negative (Negative); Ketones,Urine Negative (Negative); Leukocyte Esterase,Urine Negative (Negative); Mucus,Urine Rare /hpf; Nitrite,Urine Negative (Negative); PH, Urine 6.5 (5.0-8.0); Particle Count 11913; Protein,Urine Negative (Negative); RBC,Urine 2 /hpf (0-5); Specific Gravity,Urine 1.014 (1.001-1.035); Squamous Epithelial Cell,Urine 5 /hpf (0-4); UA Billing (MACRO vs. MICRO) MICRO; Urobilinogen,Urine <2.0 mg/dL (<2.0); WBC,Urine 2 /hpf (0-5)
[2017-02-13] MEDS ORDERED: HYDROmorphone 1 MG/ML 1 ML SYRINGE IVP STA (22:39)
[2017-02-13 22:42] VITALS: BP 118/75; PULSE 77; TEMP 97.6
== END 2017-02-13 22:56 | disposition home or self-care (01) ==
LOC: EC 19:25
DX: K74.60 Unspecified cirrhosis of liver (principal); R74.8 Abnormal levels of other serum enzymes; F32.9 Major depressive disorder, single episode, unspecified; F41.9 Anxiety disorder, unspecified; E07.9 Disorder of thyroid, unspecified; K21.9 Gastro-esophageal reflux disease without esophagitis; Z79.3 Long term (current) use of hormonal contraceptives; Z79.899 Other long term (current) drug therapy; Z88.8 Allergy status to other drugs, medicaments and biological substances; Z91.018 Allergy to other foods; Z91.040 Latex allergy status; Z91.041 Radiographic dye allergy status; Z88.0 Allergy status to penicillin; Z88.6 Allergy status to analgesic agent; Z91.013 Allergy to seafood; Z90.49 Acquired absence of other specified parts of digestive tract
CPT/HCPCS: 36415; 80053; 85025; 85610; 85730; 82272; 81001; 74020; 99285; 96374; 96361; J1170

== ENCOUNTER → 2017-03-08 | Outpatient (CLI) | payer OTHER ==
[2017-03-08 10:29] LABS: Basophils % (A) 0 %; CH 29.5; Eosinophils # (A) 0.5 k/uL (0-0.7); Eosinophils % (A) 4 %; HCT 39.9 % (34.0-46.0); HDW 2.67; HGB 13.4 gm/dL (11.4-16.0); Luc # (Auto) 0.21; Luc % (Auto) 2; Lymphocytes # (A) 3.2 k/uL (1.0-4.8); Lymphocytes % (A) 29 %; MCH 30.2 pg (25.0-35.0); MCHC 33.6 g/dL (31.0-37.0); MCV 89.8 fL (80.0-100.0); Mean Platelet Volume 7.4; Monocytes # (A) 0.5 k/uL (0-1.0); Monocytes % (A) 4 %; Neutrophils # (A) 6.7 k/uL (1.3-7.7); Neutrophils % (A) 60 %; RBC 4.44 m/uL (3.80-5.40); RDW 13.2 % (11.5-15.5); WBC 11.1 k/uL (3.8-10.6); WBC (Perox) 11.34
[2017-03-08 11:09] LABS: Bilirubin, Delta 0.2 mg/dL (0.0-0.2); Total Bilirubin 0.3 mg/dL (0.2-1.3); Total Protein 7.1 g/dL (6.3-8.2)
== END | disposition home or self-care (01) ==
LOC: LABWHC1 09:44
DX: K62.5 Hemorrhage of anus and rectum (principal); K76.0 Fatty (change of) liver, not elsewhere classified
CPT/HCPCS: 36415; 80076; 85025

== ENCOUNTER → 2017-03-14 | Outpatient (CLI) | payer OTHER | END | disposition home or self-care (01) | LOC: LABWHC1 08:17 | PROVIDERS: ATTEND Family Medicine | DX: R73.02 Impaired glucose tolerance (oral) (principal) | CPT/HCPCS: 36415; 82947; 82950 ==

== ENCOUNTER 2017-05-21 20:12 | Emergency (ER) | payer OTHER ==
[2017-05-21 20:21] VITALS: BP 129/83; PULSE 114; RESP 20; TEMP 98.4
[2017-05-21 20:49] LABS: Glucose,Whole Blood 105 mg/dL (75-99)
[2017-05-21] MEDS ORDERED: SODIUM CHLORIDE 0.9% 500 ML IV STA (20:54)
--- NOTE | 2017-05-21 20:59 | ED ---
General Adult HPI - General Chief complaint: Weakness Stated complaint: Generalized Pain-Fatigue Time Seen by Provider: 05/21/17 20:44 Source: patient, family, RN notes reviewed Mode of arrival: wheelchair Limitations: physical limitation - History of Present Illness Initial comments: Patient is a pleasant 21-year-old female presenting to the emergency Department with fatigue. Patient has had increased fatigue over the past 3 days. Patient has difficulty getting up out of bed and walking. Mom needs to assist at times. Patient has pain all over. Patient has chronic pain all over. Patient believes her cirrhosis is acting up recently on her. Patient has cirrhosis problems every day that she attributes to abdominal discomfort. 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 No isolated area of weakness. Patient also complains of lightheadedness - Related Data Home Medications Medication Instructions Recorded Confirmed Albuterol Inhaler [Ventolin Hfa 2 puff INHALATION RT-Q6H PRN 08/27/15 05/21/17 Inhaler] [place] Carbonate 600 mg PO HS 08/27/15 05/21/17 Omeprazole [PriLOSEC] 20 mg PO BID 08/27/15 05/21/17 Topiramate [Topamax] 100 mg PO HS 08/27/15 05/21/17 Loratadine 10 mg PO QAM 07/05/16 05/21/17 Hydrochlorothiazide 25 mg PO DAILY PRN 01/06/17 05/21/17 Levothyroxine Sodium [Synthroid] 125 mcg PO QAM 01/06/17 05/21/17 FLUoxetine HCL [PROzac] 80 mg PO QAM 01/23/17 05/21/17 Ondansetron HCl [Zofran] 4 mg PO HS 01/23/17 05/21/17 Ergocalciferol [Vitamin D2] 50,000 unit PO BELL 02/13/17 05/21/17 Flunisolide [Aerospan] 2 puff INHALATION RT-BID 02/13/17 05/21/17 Famotidine [Pepcid] 20 mg PO BID 05/21/17 05/21/17 Montelukast [Singulair] 10 mg PO HS 05/21/17 05/21/17 cloNIDine HCL [Catapres] 0.2 mg PO TID 05/21/17 05/21/17 clonazePAM [KlonoPIN] 1 mg PO HS 05/21/17 05/21/17 Allergies Allergy/AdvReac Type Severity Reaction Status Date / Time fentanyl Allergy Rash/Hives Verified 05/21/17 20:48 grape Allergy Anaphylaxis Verified 05/21/17 20:48 Iodinated Contrast- Oral and Allergy Anaphylaxis Verified 05/21/17 20:48 IV Dye [Iodinated Contrast Media - Oral and] latex Allergy Rash/Hives Verified 05/21/17 20:48 Penicillins Allergy Anaphylaxis Verified 05/21/17 20:48 ibuprofen [From Motrin] AdvReac GI Bleed Verified 05/21/17 20:48 prazosin AdvReac Nausea & Verified 05/21/17 20:48 Vomiting Seafood Allergy Anaphylaxis Uncoded 05/21/17 20:21 Review of Systems ROS Statement: Those systems with pertinent positive or pertinent negative responses have been documented in the HPI. ROS Other: All systems not noted in ROS Statement are negative. Constitutional: Denies: fever, chills Eyes: Denies: eye pain ENT: Denies: ear pain Respiratory: Denies: cough, dyspnea Cardiovascular: Denies: palpitations Endocrine: Reports: fatigue Gastrointestinal: Reports: abdominal pain (Chronic) Genitourinary: Denies: dysuria Musculoskeletal: Reports: other (Chronic diffuse pain) Skin: Denies: rash Neurological: Reports: weakness Past Medical History Past Medical History: Asthma, Chest Pain / Angina, Fibromyalgia, GERD/Reflux, Liver Disease, Thyroid Disorder Additional Past Medical History / Comment(s): Cirrhosis of the liver, esophagus disease, migraines, dysphagia, tachycardia, ulcer History of Any Multi-Drug Resistant Organisms: None Reported Past Surgical History: Appendectomy, Cholecystectomy, Tonsillectomy Additional Past Surgical History / Comment(s): Septum repair Past Anesthesia/Blood Transfusion Reactions: No Reported Reaction Past Psychological History: Anxiety, Depression, PTSD Smoking Status: Never smoker Past Alcohol Use History: None Reported Past Drug Use History: None Reported - Past Family History Mother Family Medical History: No Reported History Father Additional Family Medical History / Comment(s): cirrhosis, esophagus disease General Exam Limitations: physical limitation General appearance: alert, in no apparent distress, other (Patient is delayed in moving all of her extremities) Head exam: Present: atraumatic Eye exam: Present: normal appearance, PERRL, EOMI. Absent: nystagmus ENT exam: Present: normal oropharynx Neck exam: Present: normal inspection. Absent: meningismus Respiratory exam: Present: normal lung sounds bilaterally Cardiovascular Exam: Present: regular rate, normal rhythm GI/Abdominal exam: Present: soft. Absent: tenderness Extremities exam: Present: normal inspection. Absent: pedal edema, calf tenderness Neurological exam: Present: alert, CN II-XII intact. Absent: motor sensory deficit Expanded Speech: Present: fluid speech Cranial nerves: EOM's Intact: Normal Sensory exam: Upper Extremity Light Touch: Normal, Lower Extremity Light Touch: Normal Motor strength exam: RUE: 5, LUE: 5, RLE: 5, LLE: 5 DTR: Patellar (R): 2+, Patellar (L): 2+ Eye Response: (4) open spontaneously Motor Response: (6) obeys commands Verbal Response: (5) oriented Psychiatric exam: Present: flat affect Skin exam: Present: normal color Course Vital Signs 05/21/17 20:17 Temperature 98.4 F Pulse Rate 114 H Respiratory 20 Rate Blood Pressure 129/83 O2 Sat by Pulse 99 Oximetry EKG Findings - EKG Comments: EKG Findings:: Sinus tachycardia 108. DE 176. QRS 76. QT 374. QTC 501. Left axis. Normal QRS. No acute ST change. Medical Decision Making - Medical Decision Making Patient reevaluated and resting comfortably in bed. Patient does feel somewhat improved. Patient and mother updated on results and need for follow-up. Mother states there is no appointment with primary care physician and they will also follow-up with urine culture results - Lab Data Result diagrams: 05/21/17 20:56 05/21/17 20:56 Lab Results 05/21/17 05/21/17 05/21/17 Range/Units 20:33 20:56 20:56 WBC (3.8-10.6) k/uL RBC (3.80-5.40) m/uL Hgb (11.4-16.0) gm/dL Hct (34.0-46.0) % MCV (80.0-100.0) fL MCH (25.0-35.0) pg MCHC (31.0-37.0) g/dL RDW (11.5-15.5) % Plt Count (150-450) k/uL Neutrophils % % Lymphocytes % % Monocytes % % Eosinophils % % Basophils % % Neutrophils # (1.3-7.7) k/uL Lymphocytes # (1.0-4.8) k/uL Monocytes # (0-1.0) k/uL Eosinophils # (0-0.7) k/uL Basophils # (0-0.2) k/uL PT (9.0-12.0) sec INR (<1.2) APTT (22.0-30.0) sec Sodium (137-145) mmol/L Potassium (3.5-5.1) mmol/L Chloride (98-107) mmol/L Carbon Dioxide (22-30) mmol/L Anion Gap mmol/L BUN (7-17) mg/dL Creatinine (0.52-1.04) mg/dL Est GFR (MDRD) Af Amer (>60 ml/min/1.73 sqM) Est GFR (MDRD) Non-Af (>60 ml/min/1.73 sqM) Glucose (74-99) mg/dL POC Glucose (mg/dL) 105 H (75-99) mg/dL POC Glu [place] [employer] Off Bearer ID Ac, Hollie Calcium (8.4-10.2) mg/dL Phosphorus (2.5-4.5) mg/dL Magnesium (1.6-2.3) mg/dL Total Bilirubin (0.2-1.3) mg/dL AST (14-36) U/L ALT (9-52) U/L Alkaline Phosphatase (38-126) U/L Ammonia 28 (<30) umol/L Total Creatine Kinase 52 (30-135) U/L CK-MB (CK-2) <0.2 (0.0-2.4) ng/mL CK-MB (CK-2) Rel Index Troponin I <0.012 (0.000-0.034) ng/mL Total Protein (6.3-8.2) g/dL Albumin (3.5-5.0) g/dL TSH (0.465-4.680) mIU/L Free T4 (0.78-2.19) ng/dL Free T3 pg/mL (2.8-5.3) pg/ml Urine Color Urine Appearance (Clear) Urine pH (5.0-8.0) Ur Specific [place] (1.001-1.035) Urine Protein (Negative) Urine Glucose (UA) (Negative) Urine Ketones (Negative) Urine Blood (Negative) Urine Nitrite (Negative) Urine Bilirubin (Negative) Urine Urobilinogen (<2.0) mg/dL Ur Leukocyte Esterase (Negative) Urine RBC (0-5) /hpf Urine WBC (0-5) /hpf Ur Squamous Epith Cells (0-4) /hpf Urine Bacteria (None) /hpf 05/21/17 05/21/17 05/21/17 Range/Units 20:56 20:56 20:56 WBC 15.0 H (3.8-10.6) k/uL RBC 4.91 (3.80-5.40) m/uL Hgb 14.6 (11.4-16.0) gm/dL Hct 42.9 (34.0-46.0) % MCV 87.5 (80.0-100.0) fL MCH 29.8 (25.0-35.0) pg MCHC 34.1 (31.0-37.0) g/dL RDW 13.0 (11.5-15.5) % Plt Count 378 (150-450) k/uL Neutrophils % 71 % Lymphocytes % 21 % Monocytes % 4 % Eosinophils % 4 % Basophils % 0 % Neutrophils # 10.6 H (1.3-7.7) k/uL Lymphocytes # 3.1 (1.0-4.8) k/uL Monocytes # 0.5 (0-1.0) k/uL Eosinophils # 0.5 (0-0.7) k/uL Basophils # 0.0 (0-0.2) k/uL PT 10.3 (9.0-12.0) sec INR 1.0 (<1.2) APTT 23.7 (22.0-30.0) sec Sodium 139 (137-145) mmol/L Potassium 3.3 L (3.5-5.1) mmol/L Chloride 103 (98-107) mmol/L Carbon Dioxide 21 L (22-30) mmol/L Anion Gap 15 mmol/L BUN 10 (7-17) mg/dL Creatinine 1.00 (0.52-1.04) mg/dL Est GFR (MDRD) Af Amer >60 (>60 ml/min/1.73 sqM) Est GFR (MDRD) Non-Af >60 (>60 ml/min/1.73 sqM) Glucose 98 (74-99) mg/dL POC Glucose (mg/dL) (75-99) mg/dL POC Glu [place] [employer] [employer]arer ID Calcium 10.5 H (8.4-10.2) mg/dL Phosphorus 3.8 (2.5-4.5) mg/dL Magnesium 2.2 (1.6-2.3) mg/dL Total Bilirubin 0.7 (0.2-1.3) mg/dL AST 237 H (14-36) U/L ALT 190 H (9-52) U/L Alkaline Phosphatase 109 (38-126) U/L Ammonia (<30) umol/L Total Creatine Kinase (30-135) U/L CK-MB (CK-2) (0.0-2.4) ng/mL CK-MB (CK-2) Rel Index Troponin I (0.000-0.034) ng/mL Total Protein 8.5 H (6.3-8.2) g/dL Albumin 4.6 (3.5-5.0) g/dL TSH 2.400 (0.465-4.680) mIU/L Free T4 1.79 (0.78-2.19) ng/dL Free T3 pg/mL 3.0 (2.8-5.3) pg/ml Urine Color Urine Appearance (Clear) Urine pH (5.0-8.0) Ur Specific [place] (1.001-1.035) Urine Protein (Negative) Urine Glucose (UA) (Negative) Urine Ketones (Negative) Urine Blood (Negative) Urine Nitrite (Negative) Urine Bilirubin (Negative) Urine Urobilinogen (<2.0) mg/dL Ur Leukocyte Esterase (Negative) Urine RBC (0-5) /hpf Urine WBC (0-5) /hpf Ur Squamous Epith Cells (0-4) /hpf Urine Bacteria (None) /hpf 05/21/17 Range/Units 22:17 WBC (3.8-10.6) k/uL RBC (3.80-5.40) m/uL Hgb (11.4-16.0) gm/dL Hct (34.0-46.0) % MCV (80.0-100.0) fL MCH (25.0-35.0) pg MCHC (31.0-37.0) g/dL RDW (11.5-15.5) % Plt Count (150-450) k/uL Neutrophils % % Lymphocytes % % Monocytes % % Eosinophils % % Basophils % % Neutrophils # (1.3-7.7) k/uL Lymphocytes # (1.0-4.8) k/uL Monocytes # (0-1.0) k/uL Eosinophils # (0-0.7) k/uL Basophils # (0-0.2) k/uL PT (9.0-12.0) sec INR (<1.2) APTT (22.0-30.0) sec Sodium (137-145) mmol/L Potassium (3.5-5.1) mmol/L Chloride (98-107) mmol/L Carbon Dioxide (22-30) mmol/L Anion Gap mmol/L BUN (7-17) mg/dL Creatinine (0.52-1.04) mg/dL Est GFR (MDRD) Af Amer (>60 ml/min/1.73 sqM) Est GFR (MDRD) Non-Af (>60 ml/min/1.73 sqM) Glucose (74-99) mg/dL POC Glucose (mg/dL) (75-99) mg/dL POC Glu [place] [employer] Bearer ID Calcium (8.4-10.2) mg/dL Phosphorus (2.5-4.5) mg/dL Magnesium (1.6-2.3) mg/dL Total Bilirubin (0.2-1.3) mg/dL AST (14-36) U/L ALT (9-52) U/L Alkaline Phosphatase (38-126) U/L Ammonia (<30) umol/L Total Creatine Kinase (30-135) U/L CK-MB (CK-2) (0.0-2.4) ng/mL CK-MB (CK-2) Rel Index Troponin I (0.000-0.034) ng/mL Total Protein (6.3-8.2) g/dL Albumin (3.5-5.0) g/dL TSH (0.465-4.680) mIU/L Free T4 (0.78-2.19) ng/dL Free T3 pg/mL (2.8-5.3) pg/ml Urine Color Yellow Urine Appearance Cloudy H (Clear) Urine pH 6.5 (5.0-8.0) Ur Specific [place] 1.013 (1.001-1.035) Urine Protein Negative (Negative) Urine Glucose (UA) Negative (Negative) Urine Ketones Negative (Negative) Urine Blood Negative (Negative) Urine Nitrite Negative (Negative) Urine Bilirubin Negative (Negative) Urine Urobilinogen <2.0 (<2.0) mg/dL Ur Leukocyte Esterase Negative (Negative) Urine RBC <1 (0-5) /hpf Urine WBC 4 (0-5) /hpf Ur Squamous Epith Cells 7 H (0-4) /hpf Urine Bacteria Occasional H (None) /hpf - Radiology Data Radiology results: image reviewed (Chest x-ray shows no acute process. Computed tomography scan of the brain shows no acute process.) Disposition Clinical Impression: Fatigue Disposition: HOME SELF-CARE Condition: Stable Instructions: Fatigue (ED) Additional Instructions: Please follow-up with your doctor tomorrow as planned. Please have primary care physician review urine culture results. Return for increased weakness, confusion, worsening or changing symptoms or other concerns. Referrals: Marysol Rose DO [Primary Care Provider] - 1-2 days Time of Disposition: 22:52
[2017-05-21 21:04] LABS: Basophils % (A) 0 %; CH 29.9; CHCM 34.3; Eosinophils # (A) 0.5 k/uL (0-0.7); Eosinophils % (A) 4 %; HCT 42.9 % (34.0-46.0); HDW 2.79; HGB 14.6 gm/dL (11.4-16.0); Luc % (Auto) 1; Lymphocytes # (A) 3.1 k/uL (1.0-4.8); Lymphocytes % (A) 21 %; MCH 29.8 pg (25.0-35.0); MCHC 34.1 g/dL (31.0-37.0); MCV 87.5 fL (80.0-100.0); Mean Platelet Volume 7.1; Monocytes # (A) 0.5 k/uL (0-1.0); Monocytes % (A) 4 %; Neutrophils # (A) 10.6 k/uL (1.3-7.7); Neutrophils % (A) 71 %; RBC 4.91 m/uL (3.80-5.40); WBC (Perox) 14.32
[2017-05-21 21:15] LABS: ALT 190 U/L (9-52); AST 237 U/L (14-36); Alkaline Phosphatase 109 U/L (38-126); Anion Gap 15 mmol/L; Blood Urea Nitrogen 10 mg/dL (7-17); Calcium 10.5 mg/dL (8.4-10.2); Carbon Dioxide 21 mmol/L (22-30); Chloride 103 mmol/L (98-107); Glucose 98 mg/dL (74-99); Magnesium 2.2 mg/dL (1.6-2.3); Non-African American GFR(MDRD) >60 (>60 ml/min/1.73 sqM); Partial Thromboplastin Time 23.7 sec (22.0-30.0); Phosphorous 3.8 mg/dL (2.5-4.5); Potassium 3.3 mmol/L (3.5-5.1); Sodium 139 mmol/L (137-145); Total Bilirubin 0.7 mg/dL (0.2-1.3); Total Protein 8.5 g/dL (6.3-8.2)
[2017-05-21 21:18] LABS: Prothrombin Time 10.3 sec (9.0-12.0)
[2017-05-21] MEDS ORDERED: POTASSIUM CHLORIDE ER 20 MEQ TAB.ER PO STA (21:21)
[2017-05-21 21:24] LABS: Creatine Kinase 52 U/L (30-135)
--- NOTE | 2017-05-21 21:34 | XR ---
EXAMINATION TYPE: XR chest 2V DATE OF EXAM: 05/21/2017 COMPARISON: 10/20/2016 HISTORY: Weakness and dizziness with angina TECHNIQUE: Frontal and lateral views of the chest are obtained. FINDINGS: There is no focal air space opacity, pleural effusion, or pneumothorax seen. The cardiac silhouette size is within normal limits. The osseous structures are intact. IMPRESSION: No acute cardiopulmonary process.
[2017-05-21 21:36] LABS: Creatine Kinase MB <0.2 ng/mL (0.0-2.4); Troponin I <0.012 ng/mL (0.000-0.034)
[2017-05-21] MEDS ORDERED: POTASSIUM CHLORIDE 10 MEQ, LIDOCAINE 2% INJ 10 MG in SODIUM CHLORIDE 0.9% 100 ML IVPB ONE (22:00)
--- NOTE | 2017-05-21 22:10 | CT ---
EXAMINATION TYPE: CT brain wo con DATE OF EXAM: 05/21/2017 COMPARISON: NONE HISTORY: Weakness. CT DLP: 1064.00 mGycm. Automated Exposure Control for Dose Reduction was Utilized. TECHNIQUE: CT scan of the head is performed without contrast. FINDINGS: There is no acute intracranial hemorrhage, mass effect, or midline shift identified. The ventricles and sulci are within normal limits in size. The globes are intact and the visualized sin uses are clear. IMPRESSION: No acute intracranial hemorrhage, mass effect, or midline shift is seen.
[2017-05-21 22:33] LABS: Appearance,Urine Cloudy (Clear); Bacteria,Urine Occasional /hpf; Bilirubin,Urine Negative (Negative); Glucose,Urine (UA) Negative (Negative); Ketones,Urine Negative (Negative); Leukocyte Esterase,Urine Negative (Negative); Nitrite,Urine Negative (Negative); PH, Urine 6.5 (5.0-8.0); Particle Count 6878; Protein,Urine Negative (Negative); RBC,Urine <1 /hpf (0-5); Specific Gravity,Urine 1.013 (1.001-1.035); Squamous Epithelial Cell,Urine 7 /hpf (0-4); UA Billing (MACRO vs. MICRO) MICRO; Urobilinogen,Urine <2.0 mg/dL (<2.0); WBC,Urine 4 /hpf (0-5)
== END 2017-05-21 23:24 | disposition home or self-care (01) ==
LOC: EC 20:12
DX: R53.83 Other fatigue (principal); G89.29 Other chronic pain; R42 Dizziness and giddiness; K74.60 Unspecified cirrhosis of liver; J45.909 Unspecified asthma, uncomplicated; K21.9 Gastro-esophageal reflux disease without esophagitis; E07.9 Disorder of thyroid, unspecified; F32.9 Major depressive disorder, single episode, unspecified; F41.9 Anxiety disorder, unspecified; Z79.51 Long term (current) use of inhaled steroids; Z79.899 Other long term (current) drug therapy; Z88.0 Allergy status to penicillin; Z88.5 Allergy status to narcotic agent; Z88.6 Allergy status to analgesic agent; Z88.8 Allergy status to other drugs, medicaments and biological substances; Z91.013 Allergy to seafood; Z91.018 Allergy to other foods; Z91.040 Latex allergy status; Z91.041 Radiographic dye allergy status; Z86.69 Personal history of other diseases of the nervous system and sense organs; Z87.19 Personal history of other diseases of the digestive system
CPT/HCPCS: 36415; 93005; 84439; 84481; 80053; 82140; 82550; 82553; 83735; 84100; 84443; 84484; 85025; 85610; 85730; 81001; 71020; 70450; 99285; 96365; 96366; 96361; J2001; J3480

== ENCOUNTER → 2017-06-20 | Outpatient (CLI) | payer OTHER ==
[2017-06-20 16:57] LABS: ALT 124 U/L (9-52); AST 121 U/L (14-36); Alkaline Phosphatase 86 U/L (38-126); Anion Gap 12 mmol/L; Blood Urea Nitrogen 8 mg/dL (7-17); C Reactive Protein 18.8 mg/L (<10.0); Carbon Dioxide 20 mmol/L (22-30); Chloride 108 mmol/L (98-107); Glucose 119 mg/dL (74-99); Non-African American GFR(MDRD) >60 (>60 ml/min/1.73 sqM); Sodium 140 mmol/L (137-145); Total Bilirubin 0.3 mg/dL (0.2-1.3); Total Protein 7.7 g/dL (6.3-8.2)
[2017-06-20 17:00] LABS: CH 30.8; CHCM 32.8; HCT 42.8 % (34.0-46.0); HDW 2.59; HGB 13.4 gm/dL (11.4-16.0); MCH 29.5 pg (25.0-35.0); MCHC 31.2 g/dL (31.0-37.0); Mean Platelet Volume 7.7; RBC 4.53 m/uL (3.80-5.40); RDW 13.8 % (11.5-15.5); WBC 10.5 k/uL (3.8-10.6)
[2017-06-20 17:03] LABS: MCV 94.5 fL (80.0-100.0)
[2017-06-20 19:56] LABS: Erythrocyte Sedimentation Rate 54 mm/hr (0-20)
[2017-06-21 01:32] LABS: ANA w/Reflex to Titer NEGATIVE (NEGATIVE)
== END | disposition home or self-care (01) ==
LOC: LABWHC1 16:08
PROVIDERS: ATTEND Physician Assistant
DX: R53.83 Other fatigue (principal); E87.6 Hypokalemia; K75.81 Nonalcoholic steatohepatitis (NASH)
CPT/HCPCS: 36415; 80053; 83516; 85027; 85652; 86038; 86140; 86147; 86160; 86225

== ENCOUNTER 2017-09-14 12:28 | Emergency (ER) | payer OTHER ==
[2017-09-14] MEDS ORDERED: SODIUM CHLORIDE 0.9% 1,000 ML IV STA (12:49)
[2017-09-14] MEDS ORDERED: HYDROmorphone 1 MG/ML 1 ML SYRINGE IVP STA (12:49)
[2017-09-14] MEDS ORDERED: ONDANSETRON 4 MG/2 ML VIAL IVP STA (12:49)
--- NOTE | 2017-09-14 12:51 | ED ---
General Adult HPI - General Chief complaint: Abdominal Pain Stated complaint: Abd Pain Time Seen by Provider: 09/14/17 12:40 Source: patient, RN notes reviewed Mode of arrival: ambulatory Limitations: no limitations - History of Present Illness Initial comments: Patient is a 22-year-old female who presents emergency room today with a chief complaint of increased right-sided abdominal pain. She does admit to a history of liver cirrhosis and states that seems to be increased pain due to this. She states started 3 days ago. Describes it as sharp. Patient does admit to nausea. Admits to diarrhea. States his symptoms are consistent with what she is had in the past. Patient denies any other complaints or symptoms at this time. Patient denies any recent fever, chills, shortness of breath, chest pain, numbness or tingling, dysuria or hematuria, constipation, headaches or visual changes, or any other complaints. - Related Data Home Medications Medication Instructions Recorded Confirmed Albuterol Inhaler [Ventolin Hfa 2 puff INHALATION RT-Q6H PRN 08/27/15 09/14/17 Inhaler] [place] Carbonate 900 mg PO HS 08/27/15 09/14/17 Omeprazole [PriLOSEC] 20 mg PO BID 08/27/15 09/14/17 Loratadine 10 mg PO QAM 07/05/16 09/14/17 Levothyroxine Sodium [Synthroid] 125 mcg PO QAM 01/06/17 09/14/17 FLUoxetine HCL [PROzac] 40 mg PO QAM 01/23/17 09/14/17 Ondansetron HCl [Zofran] 4 mg PO HS 01/23/17 09/14/17 Ergocalciferol [Vitamin D2] 50,000 unit PO BELL 02/13/17 09/14/17 Flunisolide [Aerospan] 2 puff INHALATION RT-BID 02/13/17 09/14/17 Famotidine [Pepcid] 20 mg PO BID 05/21/17 09/14/17 Montelukast [Singulair] 10 mg PO HS 05/21/17 09/14/17 cloNIDine HCL [Catapres] 0.2 mg PO HS 05/21/17 09/14/17 Potassium Chloride [K-Tab ER] 10 meq PO DAILY 12/30/17 12/30/17 clonazePAM [KlonoPIN] 2 mg PO HS 09/14/17 09/14/17 Previous Rx's Medication Instructions Recorded clonazePAM [KlonoPIN] 2 mg PO HS #7 tab 09/14/17 Allergies Allergy/AdvReac Type Severity Reaction Status Date / Time fentanyl Allergy Rash/Hives Verified 09/14/17 12:54 grape Allergy Anaphylaxis Verified 09/14/17 12:54 Iodinated Contrast- Oral and Allergy Anaphylaxis Verified 09/14/17 12:54 IV Dye [Iodinated Contrast Media - Oral and] latex Allergy Rash/Hives Verified 09/14/17 12:54 Penicillins Allergy Anaphylaxis Verified 09/14/17 12:54 ibuprofen [From Motrin] AdvReac GI Bleed Verified 09/14/17 12:54 prazosin AdvReac Nausea & Verified 09/14/17 12:54 Vomiting Seafood Allergy Anaphylaxis Uncoded 09/14/17 12:37 Review of Systems ROS Statement: Those systems with pertinent positive or pertinent negative responses have been documented in the HPI. ROS Other: All systems not noted in ROS Statement are negative. Past Medical History Past Medical History: Asthma, Chest Pain / Angina, Fibromyalgia, GERD/Reflux, Liver Disease, Thyroid Disorder Additional Past Medical History / Comment(s): Cirrhosis of the liver, esophagus disease, migraines, dysphagia, tachycardia, ulcer History of Any Multi-Drug Resistant Organisms: None Reported Past Surgical History: Appendectomy, Cholecystectomy, Tonsillectomy Additional Past Surgical History / Comment(s): Septum repair Past Anesthesia/Blood Transfusion Reactions: No Reported Reaction Past Psychological History: Anxiety, Depression, PTSD Smoking Status: Never smoker Past Alcohol Use History: None Reported Past Drug Use History: None Reported - Past Family History Mother Family Medical History: No Reported History Father Additional Family Medical History / Comment(s): cirrhosis, esophagus disease General Exam - General Exam Comments Initial Comments: General: The patient is awake and alert, in no distress, and does not appear acutely ill. Eye: Pupils are equal, round and reactive to light, extra-ocular movements are intact. No nystagmus. There is normal conjunctiva bilaterally. No signs of icterus. Ears, nose, mouth and throat: There are moist mucous membranes and no oral lesions. Neck: The neck is supple, there is no tenderness or JVD. Cardiovascular: There is a regular rate and rhythm. No murmur, rub or gallop is appreciated. Respiratory: Lungs are clear to auscultation, respirations are non-labored, breath sounds are equal. No wheezes, stridor, rales, or rhonchi. Gastrointestinal: Normal appearance of abdomen. Normal bowel sounds. Soft on palpation. Patient does have tenderness to the right upper quadrant. No rebound and no guarding. Musculoskeletal: Normal ROM, no tenderness. Strength 5/5. Sensation intact. Pulses equal bilaterally 2+. Neurological: A&O x 3. CN II-XII intact, There are no obvious motor or sensory deficits. Coordination appears grossly intact. Speech is normal. Skin: Skin is warm and dry and no rashes or lesions are noted. Psychiatric: Cooperative, appropriate mood & affect, normal judgment. Limitations: no limitations Course Vital Signs 09/14/17 12:37 Temperature 97.8 F Pulse Rate 119 H Respiratory 20 Rate Blood Pressure 132/78 Medical Decision Making - Medical Decision Making Patient's x-rays reviewed and are negative for any acute abnormality. Patient' s labs been reviewed. AST ALT mildly elevated but much improved from previous labs. Results were discussed with patient. At this time she is resting comfortably. She is feeling better. Requesting to eat. She will be discharged home. She does question prescription for Klonopin that she takes at home. Patient will be given short prescription for the next week and she is able follow-up. Patient does have nausea medication at home that she can use. Advised return here to the emergency room symptoms increase or worsen or for any other concerns. - Lab Data Result diagrams: 09/14/17 13:07 09/14/17 13:07 Lab Results 09/14/17 09/14/17 09/14/17 Range/Units 13:07 13:07 13:07 WBC 9.6 (3.8-10.6) k/uL RBC 4.63 (3.80-5.40) m/uL Hgb 13.4 (11.4-16.0) gm/dL Hct 41.2 (34.0-46.0) % MCV 89.1 (80.0-100.0) fL MCH 28.8 (25.0-35.0) pg MCHC 32.4 (31.0-37.0) g/dL RDW 12.8 (11.5-15.5) % Plt Count 349 (150-450) k/uL Neutrophils % 61 % Lymphocytes % 26 % Monocytes % 6 % Eosinophils % 5 % Basophils % 0 % Neutrophils # 5.8 (1.3-7.7) k/uL Lymphocytes # 2.5 (1.0-4.8) k/uL Monocytes # 0.6 (0-1.0) k/uL Eosinophils # 0.5 (0-0.7) k/uL Basophils # 0.0 (0-0.2) k/uL Sodium 141 (137-145) mmol/L Potassium 4.3 (3.5-5.1) mmol/L Chloride 105 (98-107) mmol/L Carbon Dioxide 26 (22-30) mmol/L Anion Gap 10 mmol/L BUN 5 L (7-17) mg/dL Creatinine 0.82 (0.52-1.04) mg/dL Est GFR (MDRD) Af Amer >60 (>60 ml/min/1.73 sqM) Est GFR (MDRD) Non-Af >60 (>60 ml/min/1.73 sqM) Glucose 106 H (74-99) mg/dL Calcium 10.4 H (8.4-10.2) mg/dL Total Bilirubin 0.3 (0.2-1.3) mg/dL AST 63 H (14-36) U/L ALT 72 H (9-52) U/L Alkaline Phosphatase 83 (38-126) U/L Total Protein 7.8 (6.3-8.2) g/dL Albumin 4.0 (3.5-5.0) g/dL Amylase 40 (30-110) U/L Lipase 95 (23-300) U/L Urine Color Urine Appearance (Clear) Urine pH (5.0-8.0) Ur Specific [place] (1.001-1.035) Urine Protein (Negative) Urine Glucose (UA) (Negative) Urine Ketones (Negative) Urine Blood (Negative) Urine Nitrite (Negative) Urine Bilirubin (Negative) Urine Urobilinogen (<2.0) mg/dL Ur Leukocyte Esterase (Negative) Urine HCG, Qual Not Detected (Not Detectd) 09/14/17 Range/Units 13:07 WBC (3.8-10.6) k/uL RBC (3.80-5.40) m/uL Hgb (11.4-16.0) gm/dL Hct (34.0-46.0) % MCV (80.0-100.0) fL MCH (25.0-35.0) pg MCHC (31.0-37.0) g/dL RDW (11.5-15.5) % Plt Count (150-450) k/uL Neutrophils % % Lymphocytes % % Monocytes % % Eosinophils % % Basophils % % Neutrophils # (1.3-7.7) k/uL Lymphocytes # (1.0-4.8) k/uL Monocytes # (0-1.0) k/uL Eosinophils # (0-0.7) k/uL Basophils # (0-0.2) k/uL Sodium (137-145) mmol/L Potassium (3.5-5.1) mmol/L Chloride (98-107) mmol/L Carbon Dioxide (22-30) mmol/L Anion Gap mmol/L BUN (7-17) mg/dL Creatinine (0.52-1.04) mg/dL Est GFR (MDRD) Af Amer (>60 ml/min/1.73 sqM) Est GFR (MDRD) Non-Af (>60 ml/min/1.73 sqM) Glucose (74-99) mg/dL Calcium (8.4-10.2) mg/dL Total Bilirubin (0.2-1.3) mg/dL AST (14-36) U/L ALT (9-52) U/L Alkaline Phosphatase (38-126) U/L Total Protein (6.3-8.2) g/dL Albumin (3.5-5.0) g/dL Amylase (30-110) U/L Lipase (23-300) U/L Urine Color Light Yellow Urine Appearance Clear (Clear) Urine pH 6.0 (5.0-8.0) Ur Specific [place] 1.006 (1.001-1.035) Urine Protein Negative (Negative) Urine Glucose (UA) Negative (Negative) Urine Ketones Negative (Negative) Urine Blood Negative (Negative) Urine Nitrite Negative (Negative) Urine Bilirubin Negative (Negative) Urine Urobilinogen <2.0 (<2.0) mg/dL Ur Leukocyte Esterase Negative (Negative) Urine HCG, Qual (Not Detectd) Disposition Clinical Impression: Nausea & vomiting, Abdominal pain Disposition: HOME SELF-CARE Condition: Good Instructions: Abdominal Pain (ED) Additional Instructions: Please use medication as discussed. Please follow-up with family doctor in the next 2 days of symptoms have not improved. Please return to emergency room if the symptoms increase or worsen or for any other concerns. Prescriptions: clonazePAM [KlonoPIN] 2 mg PO HS #7 tab Referrals: Marysol Rose DO [Primary Care Provider] - 1-2 days Time of Disposition: 14:10
[2017-09-14 13:23] LABS: Appearance,Urine Clear (Clear); Bilirubin,Urine Negative (Negative); Blood,Urine Negative (Negative); Color,Urine Light Yellow; Glucose,Urine (UA) Negative (Negative); Ketones,Urine Negative (Negative); Leukocyte Esterase,Urine Negative (Negative); Nitrite,Urine Negative (Negative); Protein,Urine Negative (Negative); Specific Gravity,Urine 1.006 (1.001-1.035); Urobilinogen,Urine <2.0 mg/dL (<2.0)
[2017-09-14 13:25] LABS: Basophils % (A) 0 %; Eosinophils # (A) 0.5 k/uL (0-0.7); Eosinophils % (A) 5 %; HCT 41.2 % (34.0-46.0); HGB 13.4 gm/dL (11.4-16.0); Lymphocytes # (A) 2.5 k/uL (1.0-4.8); Lymphocytes % (A) 26 %; MCH 28.8 pg (25.0-35.0); MCHC 32.4 g/dL (31.0-37.0); MCV 89.1 fL (80.0-100.0); Mean Platelet Volume 6.4; Monocytes # (A) 0.6 k/uL (0-1.0); Monocytes % (A) 6 %; Neutrophils # (A) 5.8 k/uL (1.3-7.7); Neutrophils % (A) 61 %; Platelet Count 349 k/uL (150-450); RBC 4.63 m/uL (3.80-5.40); RDW 12.8 % (11.5-15.5); WBC 9.6 k/uL (3.8-10.6)
[2017-09-14 13:34] LABS: ALT 72 U/L (9-52); AST 63 U/L (14-36); Alkaline Phosphatase 83 U/L (38-126); Amylase 40 U/L (30-110); Anion Gap 10 mmol/L; Blood Urea Nitrogen 5 mg/dL (7-17); Calcium 10.4 mg/dL (8.4-10.2); Carbon Dioxide 26 mmol/L (22-30); Chloride 105 mmol/L (98-107); Glucose 106 mg/dL (74-99); Lipase 95 U/L (23-300); Potassium 4.3 mmol/L (3.5-5.1); Sodium 141 mmol/L (137-145); Total Bilirubin 0.3 mg/dL (0.2-1.3); Total Protein 7.8 g/dL (6.3-8.2)
--- NOTE | 2017-09-14 14:13 | XR ---
EXAMINATION TYPE: XR KUB DATE OF EXAM: 09/14/2017 COMPARISON: 01/06/2017 HISTORY: Pain TECHNIQUE: 2 views FINDINGS: There is no sign of intestinal obstruction or pneumoperitoneum. Fecal pattern is normal. Th ere are clips from cholecystectomy. Lung bases are clear. There are no pathologic calcifications over the kidneys. IMPRESSION: Nonacute abdomen. No change.
[2017-09-14 14:25] VITALS: BP 111/64; PULSE 91; RESP 18; TEMP 97.9
== END 2017-09-14 14:25 | disposition home or self-care (01) ==
LOC: EC 12:28
DX: R11.2 Nausea with vomiting, unspecified (principal); R10.9 Unspecified abdominal pain; R19.7 Diarrhea, unspecified; J45.909 Unspecified asthma, uncomplicated; K21.9 Gastro-esophageal reflux disease without esophagitis; E07.9 Disorder of thyroid, unspecified; F41.9 Anxiety disorder, unspecified; F32.9 Major depressive disorder, single episode, unspecified; F43.10 Post-traumatic stress disorder, unspecified; Z79.899 Other long term (current) drug therapy; Z88.5 Allergy status to narcotic agent; Z91.018 Allergy to other foods; Z91.041 Radiographic dye allergy status; Z91.040 Latex allergy status; Z88.0 Allergy status to penicillin; Z88.6 Allergy status to analgesic agent; Z88.8 Allergy status to other drugs, medicaments and biological substances; Z91.013 Allergy to seafood; Z90.49 Acquired absence of other specified parts of digestive tract
CPT/HCPCS: 36415; 80053; 82150; 83690; 85025; 81003; 81025; 74000; 99284; 96374; 96375; 96361; J2405; J1170

== ENCOUNTER 2017-09-15 21:18 | Emergency (ER) | payer OTHER ==
[2017-09-15 21:59] VITALS: TEMP 98.2
[2017-09-15] MEDS ORDERED: HYDROmorphone 1 MG/ML 1 ML SYRINGE IM STA (22:08)
--- NOTE | 2017-09-15 22:12 | ED ---
General Adult HPI - General Chief complaint: Abdominal Pain Stated complaint: flank pain Time Seen by Provider: 09/15/17 22:00 Source: patient, RN notes reviewed Mode of arrival: ambulatory Limitations: no limitations - History of Present Illness Initial comments: 22 yo female presents to the ER with cc of flareup of her chronic abdominal pain. She is chronically suffers from liver pain. They state that they were dealing with the acute flareup seems to be improving. She states that she does not take any medications his they do not seem to help her at home. She is not taking any pain medication today. They agree to stay for the same complaint. Was drawn and everything was normal. The patient was then sent home. They state the back because the pain is just continuing. She states it is very painful. Denying nausea vomiting fever or chills. They deny any cough cold or runny nose they were concerned due to the knee pain today hoping we could help with pain control. Patient denies any recent fever, chills, shortness of breath , chest pain, back pain, nausea vomiting, numbness or tingling, dysuria or hematuria, constipation or diarrhea, headaches or visual changes, or any other current symptoms.. - Related Data Home Medications Medication Instructions Recorded Confirmed Albuterol Inhaler [Ventolin Hfa 2 puff INHALATION RT-Q6H PRN 08/27/15 09/15/17 Inhaler] [place] Carbonate 900 mg PO HS 08/27/15 09/15/17 Omeprazole [PriLOSEC] 20 mg PO BID 08/27/15 09/15/17 Loratadine 10 mg PO QAM 07/05/16 09/15/17 Levothyroxine Sodium [Synthroid] 125 mcg PO QAM 01/06/17 09/15/17 FLUoxetine HCL [PROzac] 40 mg PO QAM 01/23/17 09/15/17 Ondansetron HCl [Zofran] 4 mg PO HS 01/23/17 09/15/17 Ergocalciferol [Vitamin D2] 50,000 unit PO BELL 02/13/17 09/15/17 Flunisolide [Aerospan] 2 puff INHALATION RT-BID 02/13/17 09/15/17 Famotidine [Pepcid] 20 mg PO BID 05/21/17 09/15/17 Montelukast [Singulair] 10 mg PO HS 05/21/17 09/15/17 cloNIDine HCL [Catapres] 0.2 mg PO HS 05/21/17 09/15/17 Potassium Chloride [K-Tab ER] 10 meq PO DAILY 09/14/17 09/15/17 Previous Rx's Medication Instructions Recorded clonazePAM [KlonoPIN] 2 mg PO HS #7 tab 09/14/17 Allergies Allergy/AdvReac Type Severity Reaction Status Date / Time fentanyl Allergy Rash/Hives Verified 09/15/17 22:11 grape Allergy Anaphylaxis Verified 09/15/17 22:11 Iodinated Contrast- Oral and Allergy Anaphylaxis Verified 09/15/17 22:11 IV Dye [Iodinated Contrast Media - Oral and] latex Allergy Rash/Hives Verified 09/15/17 22:11 Penicillins Allergy Anaphylaxis Verified 09/15/17 22:11 ibuprofen [From Motrin] AdvReac GI Bleed Verified 09/15/17 22:11 prazosin AdvReac Nausea & Verified 09/15/17 22:11 Vomiting Seafood Allergy Anaphylaxis Uncoded 09/15/17 21:58 Review of Systems ROS Statement: Those systems with pertinent positive or pertinent negative responses have been documented in the HPI. ROS Other: All systems not noted in ROS Statement are negative. Past Medical History Past Medical History: Asthma, Chest Pain / Angina, Fibromyalgia, GERD/Reflux, Liver Disease, Thyroid Disorder Additional Past Medical History / Comment(s): Hepatits, Cirrhosis of the liver, esophagalitis, migraines, dysphagia, tachycardia, ulcer History of Any Multi-Drug Resistant Organisms: None Reported Past Surgical History: Appendectomy, Cholecystectomy, Tonsillectomy Additional Past Surgical History / Comment(s): Septum repair Past Anesthesia/Blood Transfusion Reactions: No Reported Reaction Past Psychological History: Anxiety, Depression, PTSD Smoking Status: Never smoker Past Alcohol Use History: None Reported Past Drug Use History: None Reported - Past Family History Mother Family Medical History: No Reported History Father Additional Family Medical History / Comment(s): cirrhosis, esophagus disease General Exam Limitations: no limitations General appearance: alert, in no apparent distress ENT exam: Present: normal exam, mucous membranes moist Neck exam: Present: normal inspection. Absent: tenderness, meningismus, lymphadenopathy Respiratory exam: Present: normal lung sounds bilaterally. Absent: respiratory distress, wheezes, rales, rhonchi, stridor Cardiovascular Exam: Present: regular rate, normal rhythm, normal heart sounds. Absent: systolic murmur, diastolic murmur, rubs, gallop, clicks GI/Abdominal exam: Present: soft, normal bowel sounds. Absent: distended, tenderness, guarding, rebound, rigid Neurological exam: Present: alert, oriented X3 Psychiatric exam: Present: normal affect, normal mood Skin exam: Present: warm, dry, intact, normal color. Absent: rash Course Vital Signs 09/15/17 09/15/17 21:55 22:23 Temperature 98.2 F Pulse Rate 114 H 98 Respiratory 20 18 Rate Blood Pressure 129/81 O2 Sat by Pulse 97 96 Oximetry Medical Decision Making - Medical Decision Making 22-year-old female presents to the emergency department with a chief complaint of chronic abdominal pain. This is appreciated. Patient. Lab work was reviewed which was normal from yesterday. We discussion follow-up with her GI doctor. We discussed return parameters all questions. Patient family stated the Je management this plan. At this time they will be discharged home. Disposition Clinical Impression: Abdominal pain Disposition: HOME SELF-CARE Condition: Stable Instructions: Abdominal Pain (ED) Additional Instructions: Please use medication as discussed. Please follow up with family doctor if symptoms have not improved over the next two days. Please return to the emergency room if your symptoms increase or worsen or for any other concerns. Referrals: Marysol Rose DO [Primary Care Provider] - 1-2 days Time of Disposition: 22:25
[2017-09-15 22:24] VITALS: PULSE 98; RESP 18
[2017-09-15 22:36] VITALS: BP 119/71
== END 2017-09-15 22:39 | disposition home or self-care (01) ==
LOC: EC 21:18
DX: R10.9 Unspecified abdominal pain (principal); J45.909 Unspecified asthma, uncomplicated; K21.9 Gastro-esophageal reflux disease without esophagitis; M79.7 Fibromyalgia; E07.9 Disorder of thyroid, unspecified; F32.9 Major depressive disorder, single episode, unspecified; F41.9 Anxiety disorder, unspecified; F43.10 Post-traumatic stress disorder, unspecified; Z79.51 Long term (current) use of inhaled steroids; Z79.899 Other long term (current) drug therapy; Z91.041 Radiographic dye allergy status; Z91.040 Latex allergy status; Z88.0 Allergy status to penicillin; Z91.013 Allergy to seafood; Z91.018 Allergy to other foods; Z88.8 Allergy status to other drugs, medicaments and biological substances; Z88.6 Allergy status to analgesic agent; Z90.49 Acquired absence of other specified parts of digestive tract
CPT/HCPCS: 99283; 96372; J1170

== ENCOUNTER 2017-11-11 21:16 | Emergency (ER) | payer OTHER ==
[2017-11-11] MEDS ORDERED: HYDROmorphone 0.5 MG/0.5 ML SYRINGE IVP STA (21:36)
[2017-11-11] MEDS ORDERED: ONDANSETRON 4 MG/2 ML VIAL IVP STA (21:42)
--- NOTE | 2017-11-11 21:48 | ED ---
Abdominal Pain HPI - General Chief Complaint: Abdominal Pain Stated Complaint: vomiting Time Seen by Provider: 11/11/17 21:26 Source: patient Mode of arrival: ambulatory Limitations: no limitations - History of Present Illness Initial Comments: This patient is 22-year-old woman with history of nonalcoholic steatohepatitis ( HERCULES), who relates that she had been doing fairly well, but then over the course of today had some recurrence of the chronic intermittent right upper quadrant pain that she has. She states that in the past when his flared up like this they recommend that she have her labs tested and that she usually also received some analgesia. MD Complaint: abdominal pain Onset/Timin -: days(s) Location: RUQ Radiation: none Migration to: no migration Severity: severe Quality: aching Consistency: constant Improves With: nothing Worsens With: nothing Associated Symptoms: nausea - Related Data Home Medications Medication Instructions Recorded Confirmed Albuterol Inhaler [Ventolin Hfa 2 puff INHALATION RT-Q6H PRN 08/27/15 09/15/17 Inhaler] [place] Carbonate 900 mg PO HS 08/27/15 09/15/17 Omeprazole [PriLOSEC] 20 mg PO BID 08/27/15 09/15/17 Loratadine 10 mg PO QAM 07/05/16 09/15/17 Levothyroxine Sodium [Synthroid] 125 mcg PO QAM 01/06/17 09/15/17 FLUoxetine HCL [PROzac] 40 mg PO QAM 01/23/17 09/15/17 Ondansetron HCl [Zofran] 4 mg PO HS 01/23/17 09/15/17 Ergocalciferol [Vitamin D2] 50,000 unit PO BELL 02/13/17 09/15/17 Flunisolide [Aerospan] 2 puff INHALATION RT-BID 02/13/17 09/15/17 Famotidine [Pepcid] 20 mg PO BID 05/21/17 09/15/17 Montelukast [Singulair] 10 mg PO HS 05/21/17 09/15/17 cloNIDine HCL [Catapres] 0.2 mg PO HS 05/21/17 09/15/17 Potassium Chloride [K-Tab ER] 10 meq PO DAILY 09/14/17 09/15/17 Previous Rx's Medication Instructions Recorded clonazePAM [KlonoPIN] 2 mg PO HS #7 tab 09/14/17 Allergies Allergy/AdvReac Type Severity Reaction Status Date / Time fentanyl Allergy Rash/Hives Verified 11/11/17 21:20 grape Allergy Anaphylaxis Verified 11/11/17 21:20 Iodinated Contrast- Oral and Allergy Anaphylaxis Verified 11/11/17 21:20 IV Dye [Iodinated Contrast Media - Oral and] latex Allergy Rash/Hives Verified 11/11/17 21:20 Penicillins Allergy Anaphylaxis Verified 11/11/17 21:20 ibuprofen [From Motrin] AdvReac GI Bleed Verified 11/11/17 21:20 prazosin AdvReac Nausea & Verified 11/11/17 21:20 Vomiting Seafood Allergy Anaphylaxis Uncoded 11/11/17 21:20 Review of Systems ROS Statement: Those systems with pertinent positive or pertinent negative responses have been documented in the HPI. ROS Other: All systems not noted in ROS Statement are negative. Constitutional: Denies: fever, chills Respiratory: Denies: cough, dyspnea Cardiovascular: Denies: chest pain, palpitations, syncope Gastrointestinal: Reports: abdominal pain, nausea, constipation. Denies: vomiting, diarrhea, melena, hematochezia Genitourinary: Denies: dysuria, hematuria Musculoskeletal: Denies: back pain Skin: Denies: rash Neurological: Denies: headache Past Medical History Past Medical History: Asthma, Chest Pain / Angina, Fibromyalgia, GERD/Reflux, Liver Disease, Thyroid Disorder Additional Past Medical History / Comment(s): Hepatitis, Cirrhosis of the liver , esophagalitis, migraines, dysphagia, tachycardia, ulcer History of Any Multi-Drug Resistant Organisms: None Reported Past Surgical History: Appendectomy, Cholecystectomy, Tonsillectomy Additional Past Surgical History / Comment(s): Septum repair Past Anesthesia/Blood Transfusion Reactions: No Reported Reaction Past Psychological History: Anxiety, Depression, PTSD Smoking Status: Never smoker Past Alcohol Use History: None Reported Past Drug Use History: None Reported - Past Family History Mother Family Medical History: No Reported History Father Additional Family Medical History / Comment(s): cirrhosis, esophagus disease General Exam Limitations: no limitations General appearance: alert, in no apparent distress, obese Head exam: Present: atraumatic, normocephalic Eye exam: Present: normal appearance. Absent: scleral icterus, conjunctival injection ENT exam: Present: normal oropharynx Neck exam: Present: normal inspection, full ROM Respiratory exam: Present: normal lung sounds bilaterally. Absent: respiratory distress, wheezes, rales, rhonchi, stridor Cardiovascular Exam: Present: regular rate, normal rhythm, normal heart sounds. Absent: systolic murmur, diastolic murmur, rubs, gallop GI/Abdominal exam: Present: soft, normal bowel sounds, organomegaly. Absent: distended, tenderness, guarding, rebound, rigid, mass, pulsatile mass, hernia Extremities exam: Present: normal inspection, normal capillary refill. Absent: pedal edema, calf tenderness Back exam: Present: normal inspection. Absent: CVA tenderness (R), CVA tenderness (L) Neurological exam: Present: alert Skin exam: Present: warm, dry, intact, normal color. Absent: rash Course Vital Signs 11/11/17 11/11/17 21:16 23:45 Temperature 98.2 F 98.1 F Pulse Rate 111 H 97 Respiratory 20 16 Rate Blood Pressure 138/82 119/71 O2 Sat by Pulse 97 97 Oximetry Medical Decision Making - Medical Decision Making Patient is 22-year-old woman with history of HERCULES. Her symptoms have been controlled and her labs look relatively good today. She does have existing follow-up with gastroenterology in the near term. We discussed return parameters and she requested to go home. - Lab Data Result diagrams: 11/11/17 22:04 11/11/17 22:04 Lab Results 11/11/17 11/11/17 11/11/17 Range/Units 22:04 22:04 22:34 WBC 11.0 H (3.8-10.6) k/uL RBC 4.30 (3.80-5.40) m/uL Hgb 12.1 (11.4-16.0) gm/dL Hct 38.1 (34.0-46.0) % MCV 88.8 (80.0-100.0) fL MCH 28.3 (25.0-35.0) pg MCHC 31.8 (31.0-37.0) g/dL RDW 12.6 (11.5-15.5) % Plt Count 319 (150-450) k/uL Neutrophils % 66 % Lymphocytes % 25 % Monocytes % 4 % Eosinophils % 4 % Basophils % 0 % Neutrophils # 7.3 (1.3-7.7) k/uL Lymphocytes # 2.7 (1.0-4.8) k/uL Monocytes # 0.4 (0-1.0) k/uL Eosinophils # 0.4 (0-0.7) k/uL Basophils # 0.0 (0-0.2) k/uL Sodium 138 (137-145) mmol/L Potassium 4.3 (3.5-5.1) mmol/L Chloride 103 (98-107) mmol/L Carbon Dioxide 24 (22-30) mmol/L Anion Gap 11 mmol/L BUN 9 (7-17) mg/dL Creatinine 0.70 (0.52-1.04) mg/dL Est GFR (MDRD) Af Amer >60 (>60 ml/min/1.73 sqM) Est GFR (MDRD) Non-Af >60 (>60 ml/min/1.73 sqM) Glucose 84 (74-99) mg/dL Calcium 9.7 (8.4-10.2) mg/dL Total Bilirubin 0.3 (0.2-1.3) mg/dL AST 63 H (14-36) U/L ALT 48 (9-52) U/L Alkaline Phosphatase 76 (38-126) U/L Total Protein 7.4 (6.3-8.2) g/dL Albumin 3.9 (3.5-5.0) g/dL Amylase 39 (30-110) U/L Lipase 67 (23-300) U/L Urine Color Yellow Urine Appearance Clear (Clear) Urine pH 5.5 (5.0-8.0) Ur Specific [place] 1.011 (1.001-1.035) Urine Protein Negative (Negative) Urine Glucose (UA) Negative (Negative) Urine Ketones Negative (Negative) Urine Blood Negative (Negative) Urine Nitrite Negative (Negative) Urine Bilirubin Negative (Negative) Urine Urobilinogen <2.0 (<2.0) mg/dL Ur Leukocyte Esterase Negative (Negative) Urine HCG, Qual (Not Detectd) [place] 1.2 mmol/L 11/11/17 Range/Units 22:34 WBC (3.8-10.6) k/uL RBC (3.80-5.40) m/uL Hgb (11.4-16.0) gm/dL Hct (34.0-46.0) % MCV (80.0-100.0) fL MCH (25.0-35.0) pg MCHC (31.0-37.0) g/dL RDW (11.5-15.5) % Plt Count (150-450) k/uL Neutrophils % % Lymphocytes % % Monocytes % % Eosinophils % % Basophils % % Neutrophils # (1.3-7.7) k/uL Lymphocytes # (1.0-4.8) k/uL Monocytes # (0-1.0) k/uL Eosinophils # (0-0.7) k/uL Basophils # (0-0.2) k/uL Sodium (137-145) mmol/L Potassium (3.5-5.1) mmol/L Chloride (98-107) mmol/L Carbon Dioxide (22-30) mmol/L Anion Gap mmol/L BUN (7-17) mg/dL Creatinine (0.52-1.04) mg/dL Est GFR (MDRD) Af Amer (>60 ml/min/1.73 sqM) Est GFR (MDRD) Non-Af (>60 ml/min/1.73 sqM) Glucose (74-99) mg/dL Calcium (8.4-10.2) mg/dL Total Bilirubin (0.2-1.3) mg/dL AST (14-36) U/L ALT (9-52) U/L Alkaline Phosphatase (38-126) U/L Total Protein (6.3-8.2) g/dL Albumin (3.5-5.0) g/dL Amylase (30-110) U/L Lipase (23-300) U/L Urine Color Urine Appearance (Clear) Urine pH (5.0-8.0) Ur Specific [place] (1.001-1.035) Urine Protein (Negative) Urine Glucose (UA) (Negative) Urine Ketones (Negative) Urine Blood (Negative) Urine Nitrite (Negative) Urine Bilirubin (Negative) Urine Urobilinogen (<2.0) mg/dL Ur Leukocyte Esterase (Negative) Urine HCG, Qual Not Detected (Not Detectd) [place] mmol/L Disposition Clinical Impression: Abdominal pain, Elevated transaminase level Disposition: HOME SELF-CARE Condition: Good Instructions: Abdominal Pain (ED) Referrals: Marysol Rose DO [Primary Care Provider] - 1-2 days Justin Rocha MD [STAFF PHYSICIAN] - 1-2 days
[2017-11-11] MEDS ORDERED: MORPHINE SULFATE 4 MG/ML SYRINGE IV STA ×2 (22:11→23:30)
[2017-11-11 22:23] LABS: Basophils % (A) 0 %; Eosinophils # (A) 0.4 k/uL (0-0.7); Eosinophils % (A) 4 %; HCT 38.1 % (34.0-46.0); HGB 12.1 gm/dL (11.4-16.0); Lymphocytes # (A) 2.7 k/uL (1.0-4.8); Lymphocytes % (A) 25 %; MCH 28.3 pg (25.0-35.0); MCHC 31.8 g/dL (31.0-37.0); MCV 88.8 fL (80.0-100.0); Mean Platelet Volume 7.1; Monocytes # (A) 0.4 k/uL (0-1.0); Monocytes % (A) 4 %; Neutrophils # (A) 7.3 k/uL (1.3-7.7); Neutrophils % (A) 66 %; Platelet Count 319 k/uL (150-450); RDW 12.6 % (11.5-15.5)
[2017-11-11 22:40] LABS: Appearance,Urine Clear (Clear); Bilirubin,Urine Negative (Negative); Blood,Urine Negative (Negative); Color,Urine Yellow; Glucose,Urine (UA) Negative (Negative); Ketones,Urine Negative (Negative); Leukocyte Esterase,Urine Negative (Negative); Nitrite,Urine Negative (Negative); PH, Urine 5.5 (5.0-8.0); Protein,Urine Negative (Negative); Specific Gravity,Urine 1.011 (1.001-1.035); Urobilinogen,Urine <2.0 mg/dL (<2.0)
[2017-11-11 22:42] LABS: ALT 48 U/L (9-52); AST 63 U/L (14-36); Albumin 3.9 g/dL (3.5-5.0); Alkaline Phosphatase 76 U/L (38-126); Amylase 39 U/L (30-110); Anion Gap 11 mmol/L; Blood Urea Nitrogen 9 mg/dL (7-17); Calcium 9.7 mg/dL (8.4-10.2); Carbon Dioxide 24 mmol/L (22-30); Chloride 103 mmol/L (98-107); Glucose 84 mg/dL (74-99); Lipase 67 U/L (23-300); Lithium 1.2 mmol/L; Potassium 4.3 mmol/L (3.5-5.1); Sodium 138 mmol/L (137-145); Total Bilirubin 0.3 mg/dL (0.2-1.3); Total Protein 7.4 g/dL (6.3-8.2)
[2017-11-11 23:47] VITALS: BP 119/71; PULSE 97; RESP 16; TEMP 98.1
== END 2017-11-11 23:47 | disposition home or self-care (01) ==
LOC: EC 21:16
DX: R10.11 Right upper quadrant pain (principal); R11.0 Nausea; R74.0 Nonspecific elevation of levels of transaminase and lactic acid dehydrogenase [LDH]; J45.909 Unspecified asthma, uncomplicated; G43.909 Migraine, unspecified, not intractable, without status migrainosus; F41.9 Anxiety disorder, unspecified; F32.9 Major depressive disorder, single episode, unspecified; K21.9 Gastro-esophageal reflux disease without esophagitis; E07.9 Disorder of thyroid, unspecified; Z86.19 Personal history of other infectious and parasitic diseases; Z88.0 Allergy status to penicillin; Z88.4 Allergy status to anesthetic agent; Z88.6 Allergy status to analgesic agent; Z88.8 Allergy status to other drugs, medicaments and biological substances; Z91.013 Allergy to seafood; Z91.018 Allergy to other foods; Z91.040 Latex allergy status; Z91.041 Radiographic dye allergy status; Z79.52 Long term (current) use of systemic steroids; Z79.899 Other long term (current) drug therapy
CPT/HCPCS: 99284; 96374; 96375 ×2; 96376; 36415; 80053; 82150; 83690; 80178; 85025; 81003; 81025; J2270; J2405; J1170

== ENCOUNTER 2017-11-21 08:24 | Day surgery (SDC) | payer OTHER ==
[2017-11-20 12:33] VITALS: BMI 42.5
[~2017-11-21 08:24] MED LIST: LACTATED RINGERS 1,000 ML IV SCH; LIDOCAINE 1% 20 ML VIAL (10MG/ML) FOR IV START INTRADERMA PRN
[2017-11-21 08:55] VITALS: RESP 16; TEMP 98.8
[2017-11-21 09:12] LABS: Glucose,Whole Blood 84 mg/dL (75-99)
[2017-11-21] MEDS ORDERED: LIDOCAINE 1% INJ 10MG/ML (20 ML MDV) ONE (09:28)
[2017-11-21] MEDS ORDERED: PROPOFOL 10 MG/ML 20 ML VIAL IV ONE (09:28)
[2017-11-21 10:30] VITALS: BP 105/60; PULSE 88
--- NOTE | 2017-11-21 17:30 | P.PCN ---
Date of Procedure: 11/21/17 Procedure(s) Performed: Procedure: Esophagogastroduodenoscopy and biopsy. Colonoscopy and biopsy. Preoperative diagnosis: Recurrent vomiting and diarrhea with rectal bleeding. Postoperative diagnosis: 1. Mild antral gastritis. 2. Normal colon and terminal ileum. 3. Multiple biopsies obtained from the duodenum, antrum, esophagus, terminal ileum and right colon. Preparation: HalfLytely prep. Sedation: Was provided by anesthesia. Brief clinical history: The patient is a 22-year-old female who is scheduled for this evaluation because of recurrent vomiting as well as diarrhea and rectal bleeding. This evaluation is to assess for inflammatory bowel disease, celiac disease or other pathology. The patient has steatosis and cirrhosis of the liver. Procedure: With the patient on her left lateral decubitus position and after informed consent and adequate sedation, I passed the Olympus-GIF 160 video upper endoscope through the cricopharyngeus down the esophagus. GE junction was around 36 cm from the incisors and there was a small sliding hiatal hernia. The esophagus did not show any esophagitis or complicated reflux disease. The endoscope was then passed into the stomach which was insufflated with air and inspected in detail including the retroflex view in the cardia. There was some mottling and erythema in the antrum but no ulcers or erosions. Pyloric channel, duodenal bulb, post bulbar area and descending duodenum appeared within normal limits. There was no ulcers or bleeding. I obtained multiple biopsies from the duodenum, antrum and esophagus then the endoscope was withdrawn and I proceeded to do colonoscopy. Perianal area did not show any fissures or fistulas. There were no masses felt on digital rectal examination. The Olympus CFQ 160L video colonoscope was then inserted in the rectum in the usual fashion and advanced to the cecum. I intubated the ileocecal valve and examined the terminal ileum. Terminal ileum and colon appeared healthy with no edema, erythema, friability, ulceration, exudation or spontaneous bleeding. There was no diverticular disease, polyps or other pathology. I obtained random biopsies from the right colon and terminal ileum then I retroflexed the endoscope in the rectum before the endoscope was withdrawn. The patient tolerated the procedure well. Plan: The patient and her mother were reassured. Will await pathology results. Further plans will be made based on her course and biopsy results. She will follow-up with you as planned. I will keep you updated on her progress.
== END 2017-11-21 10:48 | disposition home or self-care (01) ==
LOC: ORWHC2ENDO 08:24
DX: K29.51 Unspecified chronic gastritis with bleeding (principal); K76.0 Fatty (change of) liver, not elsewhere classified; K74.60 Unspecified cirrhosis of liver; K44.9 Diaphragmatic hernia without obstruction or gangrene; I25.10 Atherosclerotic heart disease of native coronary artery without angina pectoris; J45.909 Unspecified asthma, uncomplicated; E11.9 Type 2 diabetes mellitus without complications; E07.9 Disorder of thyroid, unspecified; M79.7 Fibromyalgia; G43.909 Migraine, unspecified, not intractable, without status migrainosus; K75.9 Inflammatory liver disease, unspecified; Z79.84 Long term (current) use of oral hypoglycemic drugs; Z88.6 Allergy status to analgesic agent; Z88.5 Allergy status to narcotic agent; Z88.0 Allergy status to penicillin; Z79.899 Other long term (current) drug therapy; Z79.51 Long term (current) use of inhaled steroids; Z91.041 Radiographic dye allergy status
CPT/HCPCS: 81025; 88305; 45380; 43239; J2001; J2704

== ENCOUNTER 2017-12-21 00:03 | Emergency (ER) | payer OTHER ==
[2017-12-21 00:08] VITALS: TEMP 98.8
[2017-12-21] MEDS ORDERED: ONDANSETRON 4 MG/2 ML VIAL IVP STA (00:19)
[2017-12-21] MEDS ORDERED: SODIUM CHLORIDE 0.9% 500 ML IV STA (00:41)
[2017-12-21] MEDS ORDERED: MORPHINE SULFATE 4MG/4ML SYRG IV STA ×2 (00:45→02:26)
[2017-12-21 00:50] LABS: Basophils % (A) 0 %; Eosinophils # (A) 0.4 k/uL (0-0.7); Eosinophils % (A) 4 %; HCT 38.6 % (34.0-46.0); HGB 12.3 gm/dL (11.4-16.0); Lymphocytes % (A) 26 %; MCH 27.4 pg (25.0-35.0); MCHC 31.9 g/dL (31.0-37.0); MCV 86.1 fL (80.0-100.0); Mean Platelet Volume 7.4; Monocytes # (A) 0.5 k/uL (0-1.0); Monocytes % (A) 4 %; Neutrophils # (A) 7.5 k/uL (1.3-7.7); Neutrophils % (A) 65 %; Platelet Count 326 k/uL (150-450); RBC 4.48 m/uL (3.80-5.40); WBC 11.5 k/uL (3.8-10.6)
[2017-12-21 00:56] LABS: ALT 134 U/L (9-52); AST 218 U/L (14-36); Albumin 3.9 g/dL (3.5-5.0); Alkaline Phosphatase 73 U/L (38-126); Amylase 32 U/L (30-110); Anion Gap 14 mmol/L; Blood Urea Nitrogen 9 mg/dL (7-17); Calcium 9.8 mg/dL (8.4-10.2); Carbon Dioxide 22 mmol/L (22-30); Chloride 105 mmol/L (98-107); Glucose 99 mg/dL (74-99); Lipase 61 U/L (23-300); Potassium 4.1 mmol/L (3.5-5.1); Sodium 141 mmol/L (137-145); Total Bilirubin 0.3 mg/dL (0.2-1.3); Total Protein 7.5 g/dL (6.3-8.2)
[2017-12-21 01:43] VITALS: RESP 18
[2017-12-21 01:46] LABS: Appearance,Urine Clear (Clear); Bilirubin,Urine Negative (Negative); Blood,Urine Negative (Negative); Color,Urine Light Yellow; Glucose,Urine (UA) Negative (Negative); Ketones,Urine Negative (Negative); Leukocyte Esterase,Urine Negative (Negative); Nitrite,Urine Negative (Negative); Protein,Urine Negative (Negative); Specific Gravity,Urine 1.006 (1.001-1.035); Urobilinogen,Urine <2.0 mg/dL (<2.0)
--- NOTE | 2017-12-21 02:13 | ED ---
Abdominal Pain HPI - General Chief Complaint: Abdominal Pain Stated Complaint: Nausea, Abdominal Pain, Headache Time Seen by Provider: 12/21/17 00:18 Source: patient Mode of arrival: ambulatory Limitations: no limitations - History of Present Illness Initial Comments: This patient is 22-year-old woman who complains of having a flareup of her intermittent right upper quadrant abdominal pain. She states that this is similar to other flares, and usually when he gets this bad she requires a pain shot. She also has had nausea and had 2 episodes of vomiting. MD Complaint: abdominal pain Onset/Timin -: days(s) Location: RUQ, R flank Radiation: none Migration to: no migration Severity: severe Quality: aching Consistency: constant Improves With: nothing Worsens With: other (Palpation) Associated Symptoms: nausea, vomiting - Related Data Home Medications Medication Instructions Recorded Confirmed Albuterol Inhaler [Ventolin Hfa 2 puff INHALATION RT-Q6H PRN 08/27/15 11/21/17 Inhaler] [place] Carbonate 900 mg PO HS 08/27/15 11/21/17 Omeprazole [PriLOSEC] 20 mg PO BID 08/27/15 11/21/17 Loratadine 10 mg PO QAM 07/05/16 11/21/17 Levothyroxine Sodium [Synthroid] 125 mcg PO QAM 01/06/17 11/21/17 FLUoxetine HCL [PROzac] 40 mg PO QAM 01/23/17 11/21/17 Ondansetron HCl [Zofran] 4 mg PO HS 01/23/17 11/21/17 Ergocalciferol [Vitamin D2] 50,000 unit PO BELL 02/13/17 11/21/17 Flunisolide [Aerospan] 2 puff INHALATION RT-BID 02/13/17 11/21/17 Famotidine [Pepcid] 20 mg PO BID 05/21/17 11/21/17 Montelukast [Singulair] 10 mg PO 05/21/17 11/21/17 cloNIDine HCL [Catapres] 0.2 mg PO HS 05/21/17 11/21/17 Potassium Chloride [K-Tab ER] 10 meq PO DAILY 09/14/17 11/21/17 metFORMIN HCL ER [Glucophage Xr] 500 mg PO HS 11/20/17 11/21/17 Previous Rx's Medication Instructions Recorded clonazePAM [KlonoPIN] 2 mg PO HS #7 tab 09/14/17 Allergies Allergy/AdvReac Type Severity Reaction Status Date / Time fentanyl Allergy Rash/Hives Verified 12/21/17 00:08 grape Allergy Anaphylaxis Verified 12/21/17 00:08 Iodinated Contrast- Oral and Allergy Anaphylaxis Verified 12/21/17 00:08 IV Dye [Iodinated Contrast Media - Oral and] latex Allergy Rash/Hives Verified 12/21/17 00:08 Penicillins Allergy Anaphylaxis Verified 12/21/17 00:08 ibuprofen [From Motrin] AdvReac GI Bleed Verified 12/21/17 00:08 prazosin AdvReac Nausea & Verified 12/21/17 00:08 Vomiting Seafood Allergy Anaphylaxis Uncoded 12/21/17 00:08 Review of Systems ROS Statement: Those systems with pertinent positive or pertinent negative responses have been documented in the HPI. ROS Other: All systems not noted in ROS Statement are negative. Constitutional: Denies: fever, chills Respiratory: Denies: cough, dyspnea Cardiovascular: Denies: chest pain, palpitations, edema Gastrointestinal: Reports: abdominal pain, nausea, vomiting. Denies: diarrhea, hematemesis, melena, hematochezia Genitourinary: Denies: dysuria, hematuria Musculoskeletal: Denies: back pain Skin: Denies: rash Neurological: Denies: headache, weakness, numbness Past Medical History Past Medical History: Asthma, Chest Pain / Angina, Diabetes Mellitus, Fibromyalgia, GERD/Reflux, Liver Disease, Thyroid Disorder Additional Past Medical History / Comment(s): Hepatitis, Cirrhosis of the liver. Esophagalitis. Migraines. IBS. PART OF STOMACH NON-FUNCTIONING. BLOOD IN STOOL, VOMITING DAILY. History of Any Multi-Drug Resistant Organisms: None Reported Past Surgical History: Appendectomy, Cholecystectomy, Tonsillectomy Additional Past Surgical History / Comment(s): NASAL Septum repair. COLONOSCOPY. Past Anesthesia/Blood Transfusion Reactions: Motion Sickness Past Psychological History: Anxiety, Depression, PTSD Smoking Status: Never smoker Past Alcohol Use History: None Reported Past Drug Use History: None Reported - Past Family History Mother Family Medical History: No Reported History Father Family Medical History: Liver Disease Additional Family Medical History / Comment(s): cirrhosis, esophagus disease General Exam Limitations: no limitations General appearance: alert, in no apparent distress Head exam: Present: atraumatic, normocephalic Eye exam: Present: normal appearance. Absent: scleral icterus, conjunctival injection ENT exam: Present: normal oropharynx Neck exam: Present: normal inspection, full ROM Respiratory exam: Present: normal lung sounds bilaterally. Absent: respiratory distress, wheezes, rales, rhonchi, stridor Cardiovascular Exam: Present: normal rhythm, tachycardia, normal heart sounds. Absent: systolic murmur, diastolic murmur, rubs, gallop GI/Abdominal exam: Present: soft. Absent: distended, tenderness, guarding, rebound, mass Extremities exam: Present: normal inspection, normal capillary refill. Absent: pedal edema, calf tenderness Back exam: Present: normal inspection. Absent: CVA tenderness (R), CVA tenderness (L) Neurological exam: Present: alert Skin exam: Present: warm, dry, intact, normal color. Absent: rash Course Vital Signs 12/21/17 12/21/17 12/21/17 00:05 01:42 02:52 Temperature 98.8 F Pulse Rate 125 H 108 H 97 Respiratory 17 18 18 Rate Blood Pressure 156/84 117/62 116/79 O2 Sat by Pulse 98 98 97 Oximetry Medical Decision Making - Medical Decision Making Patient is 22-year-old woman with chronic intermittent right upper quadrant abdominal pain. Discussed the findings with the patient, and she is feeling better following medication. She will follow with her gastroenterologists, returning here if there is any recurrence. - Lab Data Result diagrams: 12/21/17 00:24 12/21/17 00:24 Lab Results 12/21/17 12/21/17 12/21/17 Range/Units 00:24 00:24 01:37 WBC 11.5 H (3.8-10.6) k/uL RBC 4.48 (3.80-5.40) m/uL Hgb 12.3 (11.4-16.0) gm/dL Hct 38.6 (34.0-46.0) % MCV 86.1 (80.0-100.0) fL MCH 27.4 (25.0-35.0) pg MCHC 31.9 (31.0-37.0) g/dL RDW 13.0 (11.5-15.5) % Plt Count 326 (150-450) k/uL Neutrophils % 65 % Lymphocytes % 26 % Monocytes % 4 % Eosinophils % 4 % Basophils % 0 % Neutrophils # 7.5 (1.3-7.7) k/uL Lymphocytes # 3.0 (1.0-4.8) k/uL Monocytes # 0.5 (0-1.0) k/uL Eosinophils # 0.4 (0-0.7) k/uL Basophils # 0.0 (0-0.2) k/uL Sodium 141 (137-145) mmol/L Potassium 4.1 (3.5-5.1) mmol/L Chloride 105 (98-107) mmol/L Carbon Dioxide 22 (22-30) mmol/L Anion Gap 14 mmol/L BUN 9 (7-17) mg/dL Creatinine 0.70 (0.52-1.04) mg/dL Est GFR (CKD-EPI)AfAm >90 (>60 ml/min/1.73 sqM) Est GFR (CKD-EPI)NonAf >90 (>60 ml/min/1.73 sqM) Glucose 99 (74-99) mg/dL Calcium 9.8 (8.4-10.2) mg/dL Total Bilirubin 0.3 (0.2-1.3) mg/dL AST 218 H (14-36) U/L ALT 134 H (9-52) U/L Alkaline Phosphatase 73 (38-126) U/L Total Protein 7.5 (6.3-8.2) g/dL Albumin 3.9 (3.5-5.0) g/dL Amylase 32 (30-110) U/L Lipase 61 (23-300) U/L Urine Color Urine Appearance (Clear) Urine pH (5.0-8.0) Ur Specific [place] (1.001-1.035) Urine Protein (Negative) Urine Glucose (UA) (Negative) Urine Ketones (Negative) Urine Blood (Negative) Urine Nitrite (Negative) Urine Bilirubin (Negative) Urine Urobilinogen (<2.0) mg/dL Ur Leukocyte Esterase (Negative) Urine HCG, Qual Not Detected (Not Detectd) 12/21/17 Range/Units 01:37 WBC (3.8-10.6) k/uL RBC (3.80-5.40) m/uL Hgb (11.4-16.0) gm/dL Hct (34.0-46.0) % MCV (80.0-100.0) fL MCH (25.0-35.0) pg MCHC (31.0-37.0) g/dL RDW (11.5-15.5) % Plt Count (150-450) k/uL Neutrophils % % Lymphocytes % % Monocytes % % Eosinophils % % Basophils % % Neutrophils # (1.3-7.7) k/uL Lymphocytes # (1.0-4.8) k/uL Monocytes # (0-1.0) k/uL Eosinophils # (0-0.7) k/uL Basophils # (0-0.2) k/uL Sodium (137-145) mmol/L Potassium (3.5-5.1) mmol/L Chloride (98-107) mmol/L Carbon Dioxide (22-30) mmol/L Anion Gap mmol/L BUN (7-17) mg/dL Creatinine (0.52-1.04) mg/dL Est GFR (CKD-EPI)AfAm (>60 ml/min/1.73 sqM) Est GFR (CKD-EPI)NonAf (>60 ml/min/1.73 sqM) Glucose (74-99) mg/dL Calcium (8.4-10.2) mg/dL Total Bilirubin (0.2-1.3) mg/dL AST (14-36) U/L ALT (9-52) U/L Alkaline Phosphatase (38-126) U/L Total Protein (6.3-8.2) g/dL Albumin (3.5-5.0) g/dL Amylase (30-110) U/L Lipase (23-300) U/L Urine Color Light Yellow Urine Appearance Clear (Clear) Urine pH 6.0 (5.0-8.0) Ur Specific [place] 1.006 (1.001-1.035) Urine Protein Negative (Negative) Urine Glucose (UA) Negative (Negative) Urine Ketones Negative (Negative) Urine Blood Negative (Negative) Urine Nitrite Negative (Negative) Urine Bilirubin Negative (Negative) Urine Urobilinogen <2.0 (<2.0) mg/dL Ur Leukocyte Esterase Negative (Negative) Urine HCG, Qual (Not Detectd) Disposition Clinical Impression: Abdominal pain Disposition: HOME SELF-CARE Condition: Fair Instructions: Non-Alcoholic Fatty Liver Disease (ED), Abdominal Pain (ED) Referrals: Marysol Rose DO [Primary Care Provider] - 1-2 days
[2017-12-21] MEDS ORDERED: MORPHINE SULFATE 4MG/4ML SYRG ONE (02:28)
[2017-12-21 02:53] VITALS: BP 116/79; PULSE 97
== END 2017-12-21 02:52 | disposition home or self-care (01) ==
LOC: EC 00:03
DX: R10.11 Right upper quadrant pain (principal); R11.2 Nausea with vomiting, unspecified; J45.909 Unspecified asthma, uncomplicated; E11.9 Type 2 diabetes mellitus without complications; K21.9 Gastro-esophageal reflux disease without esophagitis; K58.9 Irritable bowel syndrome, unspecified; E07.9 Disorder of thyroid, unspecified; F32.9 Major depressive disorder, single episode, unspecified; F41.9 Anxiety disorder, unspecified; F43.10 Post-traumatic stress disorder, unspecified; Z79.84 Long term (current) use of oral hypoglycemic drugs; Z79.899 Other long term (current) drug therapy; Z88.0 Allergy status to penicillin; Z88.6 Allergy status to analgesic agent; Z91.040 Latex allergy status; Z91.041 Radiographic dye allergy status; Z91.013 Allergy to seafood; Z91.018 Allergy to other foods; Z88.8 Allergy status to other drugs, medicaments and biological substances; Z88.5 Allergy status to narcotic agent; Z90.49 Acquired absence of other specified parts of digestive tract
CPT/HCPCS: 36415; 80053; 82150; 83690; 85025; 81003; 81025; 99284; 96374; 96375; 96376; 96361 ×2; J2405; J2270

== ENCOUNTER 2018-01-09 22:44 | Observation (INO) | payer OTHER ==
[2018-01-09] MEDS ORDERED: SODIUM CHLORIDE 0.9% 1,000 ML IV STA (23:16)
[2018-01-09] MEDS ORDERED: ONDANSETRON 4 MG/2 ML VIAL IVP STA (23:16)
[2018-01-09] MEDS ORDERED: MORPHINE SULFATE 4 MG/0.8 ML SYRINGE (INJ) IVP STA (23:16)
--- NOTE | 2018-01-09 23:21 | ED ---
Abdominal Pain HPI - General Chief Complaint: Abdominal Pain Stated Complaint: Nausea, Abdominal Pain Time Seen by Provider: 01/09/18 22:57 Source: patient Mode of arrival: ambulatory Limitations: no limitations - History of Present Illness Initial Comments: 22-year-old female patient presents to the emergency department today for evaluation of pain to the right upper quadrant abdomen. Patient has a past medical history significant for nonalcoholic hepatitis and cirrhosis, diabetes mellitus, and fibromyalgia. Patient reports that her liver disease was caused by a medication she took as a child. She states that for the last 3-4 days she has had an increase in her chronic right upper quadrant pain. Patient states that she has had temperatures at home as high as 102. States that her usual methods of ice application and rest have not been helping. States that she has had a cough for the last few days. She denies any vomiting, constipation, diarrhea, chest pain, shortness of breath, nasal congestion, ear pain, or sore throat. Patient denies any recent rash, back pain, numbness, tingling, dizziness , weakness, hematuria, dysuria, urinary urgency, urinary frequency, headache, visual changes, or any other complaints. - Related Data Home Medications Medication Instructions Recorded Confirmed RX: Albuterol Inhaler [Ventolin 2 puff INHALATION RT-Q6H PRN 08/27/15 01/09/18 Hfa Inhaler] RX: [place] Carbonate 900 mg PO HS 08/27/15 01/09/18 RX: Omeprazole [PriLOSEC] 20 mg PO BID 08/27/15 01/09/18 RX: Loratadine 10 mg PO QAM 07/05/16 01/09/18 RX: Levothyroxine Sodium 125 mcg PO QAM 01/06/17 01/09/18 [Synthroid] FLUoxetine HCL [PROzac] 40 mg PO QAM 01/23/17 01/09/18 Ondansetron HCl [Zofran] 4 mg PO HS 01/23/17 01/09/18 Ergocalciferol [Vitamin D2] 50,000 unit PO BELL 02/13/17 01/09/18 Flunisolide [Aerospan] 2 puff INHALATION RT-BID 02/13/17 01/09/18 Montelukast [Singulair] 10 mg PO HS 05/21/17 01/09/18 RX: Famotidine [Pepcid] 20 mg PO BID 05/21/17 01/09/18 cloNIDine HCL [Catapres] 0.2 mg PO HS 05/21/17 01/09/18 Potassium Chloride [K-Tab ER] 10 meq PO DAILY 09/14/17 01/09/18 RX: metFORMIN HCL ER [Glucophage 500 mg PO HS 11/20/17 01/09/18 Xr] Previous Rx's Medication Instructions Recorded clonazePAM [KlonoPIN] 2 mg PO HS #7 tab 09/14/17 Allergies Allergy/AdvReac Type Severity Reaction Status Date / Time fentanyl Allergy Rash/Hives Verified 01/09/18 23:08 grape Allergy Anaphylaxis Verified 01/09/18 23:08 latex Allergy Rash/Hives Verified 01/09/18 23:08 Penicillins Allergy Anaphylaxis Verified 01/09/18 23:08 ibuprofen [From Motrin] AdvReac GI Bleed Verified 01/09/18 23:08 prazosin AdvReac Nausea & Verified 01/09/18 23:08 Vomiting Seafood Allergy Anaphylaxis Uncoded 01/09/18 22:51 Review of Systems ROS Statement: Those systems with pertinent positive or pertinent negative responses have been documented in the HPI. ROS Other: All systems not noted in ROS Statement are negative. Past Medical History Past Medical History: Asthma, Chest Pain / Angina, Diabetes Mellitus, Fibromyalgia, GERD/Reflux, Liver Disease, Thyroid Disorder Additional Past Medical History / Comment(s): Hepatitis, Cirrhosis of the liver. Esophagalitis. Migraines. IBS. PART OF STOMACH NON-FUNCTIONING. BLOOD IN STOOL, VOMITING DAILY. History of Any Multi-Drug Resistant Organisms: None Reported Past Surgical History: Appendectomy, Cholecystectomy, Tonsillectomy Additional Past Surgical History / Comment(s): NASAL Septum repair. COLONOSCOPY. Past Anesthesia/Blood Transfusion Reactions: Motion Sickness Past Psychological History: Anxiety, Depression, PTSD Smoking Status: Never smoker Past Alcohol Use History: None Reported Past Drug Use History: None Reported - Past Family History Mother Family Medical History: No Reported History Father Family Medical History: Liver Disease Additional Family Medical History / Comment(s): cirrhosis, esophagus disease General Exam Limitations: no limitations General appearance: alert, in no apparent distress, other (This is a well- developed, obese adult female patient in no acute distress. Vital signs upon presentation are temperature 100.6F, pulse 120, respirations 20, blood pressure 142/94, pulse ox 94% on room air.) Eye exam: Present: normal appearance, PERRL, EOMI. Absent: scleral icterus, conjunctival injection, periorbital swelling ENT exam: Present: normal exam, normal oropharynx, mucous membranes moist Neck exam: Present: normal inspection. Absent: tenderness, meningismus, lymphadenopathy Respiratory exam: Present: normal lung sounds bilaterally. Absent: respiratory distress, wheezes, rales, rhonchi, stridor Cardiovascular Exam: Present: normal rhythm, tachycardia, normal heart sounds. Absent: systolic murmur, diastolic murmur, rubs, gallop, clicks GI/Abdominal exam: Present: soft, tenderness (Right upper quadrant, midepigastric tenderness), normal bowel sounds. Absent: distended, guarding, rebound, rigid Neurological exam: Present: alert, oriented X3, CN II-XII intact Psychiatric exam: Present: normal affect, normal mood Skin exam: Present: warm, dry, intact, normal color. Absent: rash Course Vital Signs 01/09/18 01/10/18 22:48 02:51 Temperature 100.6 F H 98.5 F Pulse Rate 120 H 105 H Respiratory 20 20 Rate Blood Pressure 142/94 138/87 O2 Sat by Pulse 94 L 97 Oximetry Medical Decision Making - Medical Decision Making 22-year-old male patient presents to the emergency department today for evaluation of fever and abdominal pain. Patient does have a past medical history significant for nonalcoholic cirrhosis and hepatitis. Patient does have chronic right upper quadrant pain however states this is much worse. Physical examination did reveal some right upper quadrant tenderness. Labs reviewed and showed no elevated white blood cell count of 14.4, neutrophils 9.2 , AST 84, ALT 76. KUB x-ray of the abdomen showed no abnormalities. CT of the abdomen and pelvis with contrast was performed, showed no evidence of acute abdomen. Given patient's elevated white cell count, fever, and continued tachycardia we will admit for sepsis and fever of unknown origin. We'll provide Levaquin pending blood cultures. Patient will be admitted to Dr. Huff. - Lab Data Result diagrams: 01/10/18 00:03 01/10/18 00:03 Lab Results 01/10/18 01/10/18 01/10/18 Range/Units 00:03 00:03 00:03 WBC 14.4 H (3.8-10.6) k/uL RBC 4.65 (3.80-5.40) m/uL Hgb 13.0 (11.4-16.0) gm/dL Hct 39.8 (34.0-46.0) % MCV 85.6 (80.0-100.0) fL MCH 27.9 (25.0-35.0) pg MCHC 32.6 (31.0-37.0) g/dL RDW 13.1 (11.5-15.5) % Plt Count 411 (150-450) k/uL Neutrophils % 64 % Lymphocytes % 27 % Monocytes % 4 % Eosinophils % 4 % Basophils % 0 % Neutrophils # 9.2 H (1.3-7.7) k/uL Lymphocytes # 3.8 (1.0-4.8) k/uL Monocytes # 0.5 (0-1.0) k/uL Eosinophils # 0.6 (0-0.7) k/uL Basophils # 0.0 (0-0.2) k/uL Sodium 141 (137-145) mmol/L Potassium 4.3 (3.5-5.1) mmol/L Chloride 102 (98-107) mmol/L Carbon Dioxide 22 (22-30) mmol/L Anion Gap 17 mmol/L BUN 13 (7-17) mg/dL Creatinine 0.80 (0.52-1.04) mg/dL Est GFR (CKD-EPI)AfAm >90 (>60 ml/min/1.73 sqM) Est GFR (CKD-EPI)NonAf >90 (>60 ml/min/1.73 sqM) Glucose 106 H (74-99) mg/dL Plasma Lactic Acid [place] 1.2 (0.7-2.0) mmol/L Calcium 10.3 H (8.4-10.2) mg/dL Total Bilirubin 0.3 (0.2-1.3) mg/dL AST 84 H (14-36) U/L ALT 76 H (9-52) U/L Alkaline Phosphatase 85 (38-126) U/L Total Protein 8.0 (6.3-8.2) g/dL Albumin 4.3 (3.5-5.0) g/dL Amylase 41 (30-110) U/L Lipase 68 (23-300) U/L Urine Color Urine Appearance (Clear) Urine pH (5.0-8.0) Ur Specific [place] (1.001-1.035) Urine Protein (Negative) Urine Glucose (UA) (Negative) Urine Ketones (Negative) Urine Blood (Negative) Urine Nitrite (Negative) Urine Bilirubin (Negative) Urine Urobilinogen (<2.0) mg/dL Ur Leukocyte Esterase (Negative) Urine RBC (0-5) /hpf Urine WBC Clumps (None) /hpf Ur Squamous Epith Cells (0-4) /hpf Urine Mucus (None) /hpf 01/10/18 Range/Units 00:03 WBC (3.8-10.6) k/uL RBC (3.80-5.40) m/uL Hgb (11.4-16.0) gm/dL Hct (34.0-46.0) % MCV (80.0-100.0) fL MCH (25.0-35.0) pg MCHC (31.0-37.0) g/dL RDW (11.5-15.5) % Plt Count (150-450) k/uL Neutrophils % % Lymphocytes % % Monocytes % % Eosinophils % % Basophils % % Neutrophils # (1.3-7.7) k/uL Lymphocytes # (1.0-4.8) k/uL Monocytes # (0-1.0) k/uL Eosinophils # (0-0.7) k/uL Basophils # (0-0.2) k/uL Sodium (137-145) mmol/L Potassium (3.5-5.1) mmol/L Chloride (98-107) mmol/L Carbon Dioxide (22-30) mmol/L Anion Gap mmol/L BUN (7-17) mg/dL Creatinine (0.52-1.04) mg/dL Est GFR (CKD-EPI)AfAm (>60 ml/min/1.73 sqM) Est GFR (CKD-EPI)NonAf (>60 ml/min/1.73 sqM) Glucose (74-99) mg/dL Plasma Lactic Acid [place] (0.7-2.0) mmol/L Calcium (8.4-10.2) mg/dL Total Bilirubin (0.2-1.3) mg/dL AST (14-36) U/L ALT (9-52) U/L Alkaline Phosphatase (38-126) U/L Total Protein (6.3-8.2) g/dL Albumin (3.5-5.0) g/dL Amylase (30-110) U/L Lipase (23-300) U/L Urine Color Yellow Urine Appearance Cloudy H (Clear) Urine pH 6.0 (5.0-8.0) Ur Specific [place] 1.012 (1.001-1.035) Urine Protein Negative (Negative) Urine Glucose (UA) Negative (Negative) Urine Ketones Negative (Negative) Urine Blood Negative (Negative) Urine Nitrite Negative (Negative) Urine Bilirubin Negative (Negative) Urine Urobilinogen <2.0 (<2.0) mg/dL Ur Leukocyte Esterase Negative (Negative) Urine RBC 3 (0-5) /hpf Urine WBC Clumps Rare H (None) /hpf Ur Squamous Epith Cells 12 H (0-4) /hpf Urine Mucus Rare H (None) /hpf - Radiology Data Radiology results: report reviewed, image reviewed CT of the abdomen and pelvis with contrast was obtained. Report was reviewed in its entirety. Impression by Dr. Zaldivar shows hepatosplenomegaly. Fatty infiltration of the liver. No change compared to old exam. No sign of acute abdomen and pelvis. Disposition Clinical Impression: Sepsis, Abdominal pain, Fever of unknown origin Disposition: ADMITTED IP TO THIS [facility] Condition: Serious Referrals: Marysol Rose DO [Primary Care Provider] - 1-2 days Decision to Admit Reason: Admit from EC Decision Date: 01/10/18 Decision Time: 03:41
[2018-01-10 00:12] LABS: Basophils % (A) 0 %; Eosinophils # (A) 0.6 k/uL (0-0.7); Eosinophils % (A) 4 %; HCT 39.8 % (34.0-46.0); Lymphocytes # (A) 3.8 k/uL (1.0-4.8); Lymphocytes % (A) 27 %; MCH 27.9 pg (25.0-35.0); MCHC 32.6 g/dL (31.0-37.0); MCV 85.6 fL (80.0-100.0); Mean Platelet Volume 7.4; Monocytes # (A) 0.5 k/uL (0-1.0); Monocytes % (A) 4 %; Neutrophils # (A) 9.2 k/uL (1.3-7.7); Neutrophils % (A) 64 %; Platelet Count 411 k/uL (150-450); RBC 4.65 m/uL (3.80-5.40); RDW 13.1 % (11.5-15.5); WBC 14.4 k/uL (3.8-10.6)
[2018-01-10 00:18] LABS: Appearance,Urine Cloudy (Clear); Bilirubin,Urine Negative (Negative); Blood,Urine Negative (Negative); Color,Urine Yellow; Glucose,Urine (UA) Negative (Negative); Ketones,Urine Negative (Negative); Leukocyte Esterase,Urine Negative (Negative); Mucus,Urine Rare /hpf; Nitrite,Urine Negative (Negative); Protein,Urine Negative (Negative); RBC,Urine 3 /hpf (0-5); Specific Gravity,Urine 1.012 (1.001-1.035); Squamous Epithelial Cell,Urine 12 /hpf (0-4); Urobilinogen,Urine <2.0 mg/dL (<2.0)
[2018-01-10 00:22] LABS: ALT 76 U/L (9-52); AST 84 U/L (14-36); Albumin 4.3 g/dL (3.5-5.0); Alkaline Phosphatase 85 U/L (38-126); Amylase 41 U/L (30-110); Anion Gap 17 mmol/L; Blood Urea Nitrogen 13 mg/dL (7-17); Calcium 10.3 mg/dL (8.4-10.2); Carbon Dioxide 22 mmol/L (22-30); Chloride 102 mmol/L (98-107); Glucose 106 mg/dL (74-99); Lipase 68 U/L (23-300); Potassium 4.3 mmol/L (3.5-5.1); Sodium 141 mmol/L (137-145); Total Bilirubin 0.3 mg/dL (0.2-1.3)
--- NOTE | 2018-01-10 00:54 | XR ---
EXAMINATION TYPE: XR chest 2V DATE OF EXAM: 01/10/2018 COMPARISON: 05/21/2017 HISTORY: Chest pain TECHNIQUE: Frontal and lateral views of the chest are obtained. FINDINGS: Heart and mediastinum are normal. Lungs are clear. Diaphragm is normal. Bony thorax appear s normal. IMPRESSION: Normal chest. No change.
--- NOTE | 2018-01-10 00:55 | XR ---
History pain. Comparison 09/14/2017 TECHNIQUE: 2 views. FINDINGS: Bowel gas pattern is normal. There is no sign of intestinal obstruction or pneumoperitoneum. There ar e clips from cholecystectomy. Lung bases are clear. There is a slight lumbar levoscoliosis. There are no pathologic calcifications over the kidneys. CONCLUSION: Nonacute abdomen.
[2018-01-10] MEDS ORDERED: RX INFO: IV CONTRAST WAS GIVEN 1 EACH MISC MISCELLANE PRN (01:42)
--- NOTE | 2018-01-10 02:31 | CT ---
EXAMINATION TYPE: CT abdomen pelvis w con DATE OF EXAM: 01/10/2018 COMPARISON: 01/07/2017 HISTORY: PT. C/O PAIN ON RIGHT SIDE OF ABDOMEN CT DLP: 2006.80 mGycm Automated exposure control for dose reduction was used. TECHNIQUE: Helical acquisition of images was performed from the lung bases through the pelvis. CONTRAST: Performed without Oral Contrast and with IV Contrast, patient injected with 100 mL of Isovue 300. FINDINGS: Lung bases are clear. There is no pleural effusion. There is no pericardial effusion. There is some fatty infiltration of the liver. pancreas appear normal. There are clips from cholecys tectomy. Bile ducts are not dilated. Spleen is borderline enlarged and measures 13 cm. Liver is large . Liver measures 26 cm in length. There is no adrenal mass. Kidneys show satisfactory contrast opacification. There is no hydronephrosi s. There is no retroperitoneal adenopathy. There is no ascites. I see no intestinal wall thickening. There are no dilated loops. Bladder distends smoothly. There is no sign of a pelvic mass. There is no sign of free air. IMPRESSION: THERE IS HEPATOSPLENOMEGALY. FATTY INFILTRATION OF THE LIVER. NO CHANGE COMPARED TO OLD EXAM. NO SIGN OF ACUTE ABDOMEN AND PELVIS.
[2018-01-10] MEDS ORDERED: MORPHINE SULFATE 4 MG/0.8 ML SYRINGE (INJ) IVP STA (03:08)
[2018-01-10] MEDS ORDERED: ONDANSETRON 4 MG/2 ML VIAL IVP STA (03:08)
[2018-01-10] MEDS ORDERED: NALOXONE 0.4 MG/ML 1 ML VIAL IV PRN (03:18)
[2018-01-10] MEDS ORDERED: LEVOFLOXACIN 500MG-D5W PMX 500 MG in DEXTROSE/WATER 1 100ML.BAG IVPB STA (03:25)
[2018-01-10] MEDS: SODIUM CHLORIDE 0.9% 1,000 ML IV SCH ×3 (03:55→22:19)
[2018-01-10] MEDS ORDERED: ALBUTEROL INHALER 60 PUFF/8 GM INHALER INHALATION PRN (06:09)
[2018-01-10] MEDS: MORPHINE SULFATE 4 MG/0.8 ML SYRINGE (INJ) IV PRN ×4 (06:32→21:41)
[2018-01-10] MEDS: LEVOTHYROXINE 125 MCG TAB PO SCH (06:39)
[2018-01-10] MEDS: ONDANSETRON 4 MG/2 ML VIAL IVP PRN ×2 (07:43→17:40)
[2018-01-10] MEDS: IMIPRAMINE 25 MG TAB PO SCH (07:44)
[2018-01-10] MEDS: LORATADINE 10 MG TAB PO SCH (07:44)
[2018-01-10] MEDS: FAMOTIDINE 20 MG TAB PO SCH ×2 (07:44→21:27)
[2018-01-10] MEDS: FLUoxetine HCL 20 MG CAP PO SCH (07:44)
[2018-01-10] MEDS: POTASSIUM CHLORIDE ER 10 MEQ TAB.ER.PRT PO SCH (07:45)
[2018-01-10] MEDS ORDERED: BUDESONIDE 0.5 MG/2 ML NEBU INHALATION SCH (08:00)
[2018-01-10] MEDS ORDERED: PANTOPRAZOLE 40 MG TABLET PO SCH (09:00)
--- NOTE | 2018-01-10 12:32 | P.HPIM ---
History of Present Illness H&P Date: 01/10/18 Chief Complaint: Abdominal pain This is a 22-year-old female, patient of [facility]. 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 Also history of diabetes mellitus, fibromyalgia, anxiety, depression, schizophrenia and bipolar and morbid obesity. Patient presents to the emergency room with complaints of a three-day history of right upper quadrant pain with nausea and vomiting and fever at home. Patient had a similar symptom about a year ago. At that time there is concerns that her abdominal pain and elevated liver enzymes were related to psychiatric medications. Patient was told to see her psychiatrist for further medication adjustments. Per the patient no further adjustments were made. She' s also had a gallbladder removed about 3 years ago. EGD and colonoscopy completed November of this year showed mild antral gastritis and no other significant findings. Biopsies were obtained at that time. Computed tomography scan of the abdomen and pelvis completed showing no acute changes. CT scan did show hepatosplenomegaly with fatty infiltration of the liver. And no changes from prior examinations. Temp on admission was 100.6 she was tachycardic with a heart rate of 120 white count elevated at 14.4. AST 84 and ALT 76. GI service and infectious disease service have been consulted due to her right upper quadrant and fever. Initially placed on Levaquin in the emergency room. This will be discontinued until seen by infectious disease. No evidence of UTI. She has not had any vomiting for the past 2 days. Denies any diarrhea. Patient did report a few scant amounts of blood in her emesis a couple days ago. Patient did report some mild chest pain after the vomiting. Troponin and EKG ordered Review of Systems Please refer to HPI otherwise unremarkable Past Medical History Past Medical History: Asthma, Chest Pain / Angina, Diabetes Mellitus, Fibromyalgia, GERD/Reflux, Liver Disease, Thyroid Disorder Additional Past Medical History / Comment(s): Hepatitis, Cirrhosis of the liver. Esophagalitis. Migraines. IBS. PART OF STOMACH NON-FUNCTIONING. BLOOD IN STOOL, VOMITING DAILY. History of Any Multi-Drug Resistant Organisms: None Reported Past Surgical History: Appendectomy, Cholecystectomy, Tonsillectomy Additional Past Surgical History / Comment(s): NASAL Septum repair. COLONOSCOPY. Past Anesthesia/Blood Transfusion Reactions: Motion Sickness Past Psychological History: Anxiety, Depression, PTSD Smoking Status: Never smoker Past Alcohol Use History: None Reported Past Drug Use History: None Reported - Past Family History Mother Family Medical History: No Reported History Father Family Medical History: Liver Disease Additional Family Medical History / Comment(s): cirrhosis, esophagus disease Medications and Allergies Home Medications Medication Instructions Recorded Confirmed Type Albuterol Inhaler [Ventolin Hfa 2 puff INHALATION RT-Q6H PRN 08/27/15 01/09/18 History Inhaler] [place] Carbonate 900 mg PO HS 08/27/15 01/09/18 History Omeprazole [PriLOSEC] 20 mg PO BID 08/27/15 01/09/18 History Loratadine 10 mg PO QAM 07/05/16 01/09/18 History Levothyroxine Sodium [Synthroid] 125 mcg PO QAM 01/06/17 01/09/18 History FLUoxetine HCL [PROzac] 40 mg PO QAM 01/23/17 01/09/18 History Ondansetron HCl [Zofran] 4 mg PO HS 01/23/17 01/09/18 History Ergocalciferol [Vitamin D2] 50,000 unit PO BELL 02/13/17 01/09/18 History Flunisolide [Aerospan] 2 puff INHALATION RT-BID 02/13/17 01/09/18 History Famotidine [Pepcid] 20 mg PO BID 05/21/17 01/09/18 History Montelukast [Singulair] 10 mg PO HS 05/21/17 01/09/18 History cloNIDine HCL [Catapres] 0.2 mg PO HS 05/21/17 01/09/18 History Potassium Chloride [K-Tab ER] 10 meq PO DAILY 09/14/17 01/09/18 History clonazePAM [KlonoPIN] 2 mg PO HS #7 tab 09/14/17 01/09/18 Rx metFORMIN HCL ER [Glucophage Xr] 500 mg PO HS 11/20/17 01/09/18 History Imipramine HCl [Tofranil] 50 mg PO DAILY 01/10/18 01/10/18 History Allergies Allergy/AdvReac Type Severity Reaction Status Date / Time fentanyl Allergy Rash/Hives Verified 01/09/18 23:08 grape Allergy Anaphylaxis Verified 01/09/18 23:08 latex Allergy Rash/Hives Verified 01/09/18 23:08 Penicillins Allergy Anaphylaxis Verified 01/09/18 23:08 ibuprofen [From Motrin] AdvReac GI Bleed Verified 01/09/18 23:08 prazosin AdvReac Nausea & Verified 01/09/18 23:08 Vomiting Seafood Allergy Anaphylaxis Uncoded 01/09/18 22:51 Physical Exam Vitals: Vital Signs Temp Pulse Pulse Resp BP BP BP 01/10/18 06:35 97.9 F 101 H 20 137/76 01/10/18 04:22 98.4 F 125 H 141/102 01/10/18 03:57 115 H 17 141/86 01/10/18 02:51 98.5 F 105 H 20 138/87 01/09/18 22:48 100.6 F H 120 H 20 142/94 Pulse Ox 01/10/18 06:35 98 01/10/18 04:22 98 01/10/18 03:57 95 01/10/18 02:51 97 01/09/18 22:48 94 L Intake and Output 01/09/18 01/10/18 01/10/18 22:59 06:59 14:59 Intake Total 1302.5 Balance 1302.5 Intake: Intake, IV Titration 1102.5 Amount Levofloxacin 500Mg-D5w 100 Pmx 500 mg In Dextrose/ Water 1 100ml.bag @ 100 mls/hr IVPB Q24H [facility] Rx#: [id number] Sodium Chloride 0.9% 1, 3.5 000 ml @ 100 mls/hr IV . Q10H [facility] Rx#:[id number] Sodium Chloride 0.9% 1, 999 000 ml @ 999 mls/hr IV . Q1H1M [facility] Rx#:[id number] Oral 200 Other: # Voids 0 Weight 99.337 kg Head normocephalic Neck supple Lungs clear to auscultation bilaterally no wheezing or crackles Heart regular rate and rhythm S1-S2, no rub or gallop Abdomen is soft right upper quadrant tenderness nondistended positive bowel sounds . Obese Extremities no edema Neuro alert and orientated to 3 Results CBC & Chem 7: 01/10/18 00:03 01/10/18 00:03 Labs: Abnormal Lab Results - Last 24 Hours (Table) 01/10/18 01/10/18 01/10/18 Range/Units 00:03 00:03 00:03 WBC 14.4 H (3.8-10.6) k/uL Neutrophils # 9.2 H (1.3-7.7) k/uL Glucose 106 H (74-99) mg/dL Calcium 10.3 H (8.4-10.2) mg/dL AST 84 H (14-36) U/L ALT 76 H (9-52) U/L Urine Appearance Cloudy H (Clear) Urine WBC Clumps Rare H (None) /hpf Ur Squamous Epith Cells 12 H (0-4) /hpf Urine Mucus Rare H (None) /hpf Thrombosis Risk Factor Assmnt - Choose All That Apply Any of the Below Risk Factors Present?: Yes Each Factor Represents 1 point: Acute ID, Medical pt on bed rest, Obesity (BMI > 25), Sepsis (< 1month), Serious lung disease incl. pneumonia (< 1month) Other Risk Factors: No Other congenital or acquired thrombophilia - If yes, enter type in comment: No Thrombosis Risk Factor Assessment Total Risk Factor Score: 5 Thrombosis Risk Factor Assessment Level: High Risk Assessment and Plan Assessment: 1. Right upper quadrant pain with fever, nausea and vomiting: Computed tomography scan of the abdomen showing no acute changes. Evidence of hepatosplenomegaly and fatty infiltration of the liver with no change from prior exam. GI service will be consulted. Patient does have a known history of non-alcoholic hepatitis likely related to psychiatric meds. Liver enzymes only mildly elevated at AST of 84 ALT of 76. GI service consulted. History of cholecystectomy. Recent EGD and colonoscopy November 2017 revealing mild antral gastritis 2. Leukocytosis with fever consult infectious disease. Blood culture pending. Urinalysis showing a contaminant. Check acute hepatitis panel 3. Diabetes mellitus: Continue metformin. Add sliding scale coverage. Check A1c 4. Hypothyroidism continue Synthroid 5. Generalized anxiety disorder, depression, PTSD, schizophrenia and bipolar: Continue current psychiatric meds 6. Morbid obesity GI prophylaxis Pepcid and DVT prophylaxis Lovenox Time with Patient: Greater than 30 (Greater than 50% of the total time spent in counseling and coordination of care.I performed an examination of the patient and discussed their management with the physician Asbestos Removal Supervisor. I have reviewed the Physician Asbestos Removal Supervisor's notes and agree with the documented findings and plan of care)
[2018-01-10] MEDS: INSULIN ASPART 100 UNIT/ML 1 ML 10 ML VIAL SQ SCH ×3 (12:51→20:44)
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
[2018-01-10] MEDS: ALBUTEROL NEBULIZED 2.5 MG/3 ML INHALATION PRN ×2 (15:25→18:58)
[2018-01-10 17:08] LABS: Glucose,Whole Blood 97 mg/dL (75-99)
[2018-01-10] MEDS: BUDESONIDE 0.5 MG/2 ML NEBU INHALATION SCH (19:01)
[2018-01-10 19:49] LABS: Hepatitis A Antibody IgM Non-Reactive (Non-Reactive); Hepatitis B Core IgM Non-Reactive (Non-Reactive)
[2018-01-10 20:33] LABS: Glucose,Whole Blood 109 mg/dL (75-99)
[2018-01-10 20:42] LABS: Hemoglobin A1C 5.1 % (4.0-6.0)
[2018-01-10] MEDS ORDERED: LITHIUM CARBONATE 300 MG CAP PO SCH (21:00)
[2018-01-10] MEDS ORDERED: clonazePAM 1 MG TAB PO SCH (21:00)
[2018-01-10] MEDS ORDERED: cloNIDine HCL 0.2 MG TAB PO SCH (21:00)
[2018-01-10] MEDS ORDERED: MONTELUKAST 10 MG TAB PO SCH (21:00)
[2018-01-10] MEDS ORDERED: ONDANSETRON 4 MG TAB PO SCH (21:00)
[2018-01-10] MEDS ORDERED: ACETAMINOPHEN TAB 325 MG TAB PO PRN (22:54)
[2018-01-11] MEDS ORDERED: LEVOFLOXACIN 500MG-D5W PMX 500 MG in DEXTROSE/WATER 1 100ML.BAG IVPB SCH (03:00)
[2018-01-11] MEDS: MORPHINE SULFATE 4 MG/0.8 ML SYRINGE (INJ) IV PRN ×2 (04:44→11:15)
[2018-01-11] MEDS: LEVOTHYROXINE 125 MCG TAB PO SCH (04:48)
[2018-01-11 06:13] VITALS: BP 133/86; RESP 16; TEMP 97.6
[2018-01-11] MEDS: ALBUTEROL NEBULIZED 2.5 MG/3 ML INHALATION PRN (06:50)
[2018-01-11] MEDS: BUDESONIDE 0.5 MG/2 ML NEBU INHALATION SCH (06:50)
[2018-01-11 06:52] VITALS: PULSE 92
[2018-01-11 07:15] LABS: Glucose,Whole Blood 95 mg/dL (75-99)
--- NOTE | 2018-01-11 07:27 | CONS ---
CONSULTATION DATE OF SERVICE: 01/10/2018 REASON FOR CONSULTATION: Fever and leukocytosis. HISTORY OF PRESENT ILLNESS: The patient is a 22-year-old female with past medical history significant for alcoholic hepatitis secondary to psychiatric medication with cirrhosis. The patient presenting to the [facility] ER last night with chief complaints of a right upper quadrant pain, nausea, vomiting and fever at home. Her symptom has been going on for about 3 days prior to presenting to hospital and patient unable to keep anything down. The patient denies having any diarrhea though. Pain described to more of a dull aching pain in the right upper quadrant area 7 to 8 out of 10 and no radiation with associated nausea and vomiting. With these symptoms the patient presented to the [facility] ER. On arrival to the ER the patient did have a low-grade fever of 100.6 with tachycardia, heart rate 120. CT scan of abdomen and pelvis did show hepatomegaly with fatty infiltration, but no other acute abnormality. The patient was started on Levaquin and subsequently discontinued by the admitting team. Admitted to hospital and Infection Disease is consulted for further recommendation regarding antibiotic therapy. REVIEW OF SYSTEMS: CONSTITUTIONAL: Positive for weakness along with the low-grade fever. EYES: No complaint. ENT: No complaint. RESPIRATORY: No complaint. CARDIOVASCULAR: No complaint. GENITOURINARY: No complaint. GASTROINTESTINAL: As per HPI. MUSCULOSKELETAL: No complaint. INTEGUMENTARY: No complaint. PSYCHOLOGICAL: No complaint. ENDOCRINE: No complaint. NEUROLOGIC: No complaint. PAST MEDICAL HISTORY: Significant for hepatitis cirrhosis of the liver, esophagitis, migraine, fibromyalgia, diabetes mellitus, asthma and gastroesophageal reflux disease. PAST SURGICAL HISTORY: Appendectomy, cholecystectomy, tonsillectomy, nasal septum repair, colonoscopy. SOCIAL HISTORY: No history of smoking, drinking or drug use. FAMILY HISTORY: Father with history of cirrhosis. ALLERGIES: To FENTANYL, LATEX, PENICILLIN. MEDICATIONS: Include the patient currently on Tylenol, Ventolin, Pulmicort, Klonopin, Catapres, Lovenox, vitamin D2, Pepcid, Prozac, Tofranil, NovoLog, Synthroid, lithium carbonate, glargine, Glucophage, Singulair, Narcan, Zofran, Protonix. EXAMINATION: Blood pressure is 140/99, pulse of 103, temperature 98.2. She is 96% on room air. General description is a middle aged female lying in bed in no distress. No tachypnea or accessory muscle of respiration use. HEENT: Shows no pallor or scleral icterus. Oral mucous membrane is dry. No pharyngeal erythema or thrush. NECK: Trachea central. No thyromegaly. LUNGS: Unlabored breathing. Clear to auscultation. No wheeze or crackle. HEART: S1, S2. Regular rate and rhythm. No murmur. ABDOMEN: Soft, mild tenderness in right upper quadrant area. No guarding. No rigidity. No organomegaly. EXTREMITIES: No edema of the feet. SKIN EXAMINATION: No rash or mass palpable. NEUROLOGICAL: Patient is awake, alert, oriented x3. Mood and affect normal. LABS: Hemoglobin is 13, white count 14.4, BUN of 13, creatinine 0.80. Liver enzymes slightly elevated. Urine has been negative. A CT abdominal pelvis was reviewed with Dr. Ram with evidence of some hepatosplenomegaly, mild, but no evidence of any inflammation. DIAGNOSTIC IMPRESSION AND PLAN: Patient admitted to the hospital with right upper quadrant pain of 3 days duration with associated nausea and vomiting in a patient who did have low-grade fever of 100.6 and mild elevated white count; however, no clear focus of infection. The patient's CT of abdomen and pelvis with hepatosplenomegaly, but no active inflammation. Lung bases look normal too. With concern for possible viral syndrome with no evidence of any bacterial infection. PLAN: Agree with discontinuation of the antibiotic. The patient will be monitored closely off antibiotic therapy. If the patient spikes any new fever or any jump in the white count or any change in clinical condition to re-culture before starting her on an antibiotic. Thank you for this consultation. Will follow this patient along with you. Plan of care was discussed in detail with the nurse practitioner for the primary team. MMODL / IJN: [id number] / AUBREY
[2018-01-11] MEDS ORDERED: PANTOPRAZOLE 40 MG TABLET PO SCH (07:30)
[2018-01-11] MEDS: POTASSIUM CHLORIDE ER 10 MEQ TAB.ER.PRT PO SCH (07:47)
[2018-01-11] MEDS: IMIPRAMINE 25 MG TAB PO SCH (07:47)
[2018-01-11] MEDS: FAMOTIDINE 20 MG TAB PO SCH (07:47)
[2018-01-11] MEDS: LORATADINE 10 MG TAB PO SCH (07:48)
[2018-01-11] MEDS: FLUoxetine HCL 20 MG CAP PO SCH (07:48)
[2018-01-11] MEDS: INSULIN ASPART 100 UNIT/ML 1 ML 10 ML VIAL SQ SCH ×2 (08:00→11:18)
[2018-01-11 08:53] LABS: Basophils % (A) 0 %; Eosinophils # (A) 0.3 k/uL (0-0.7); Eosinophils % (A) 3 %; HCT 37.6 % (34.0-46.0); HGB 12.3 gm/dL (11.4-16.0); Lymphocytes # (A) 2.8 k/uL (1.0-4.8); Lymphocytes % (A) 33 %; MCH 29.1 pg (25.0-35.0); MCHC 32.8 g/dL (31.0-37.0); MCV 88.5 fL (80.0-100.0); Mean Platelet Volume 6.9; Monocytes # (A) 0.3 k/uL (0-1.0); Monocytes % (A) 4 %; Neutrophils % (A) 59 %; Platelet Count 332 k/uL (150-450); RBC 4.25 m/uL (3.80-5.40); RDW 12.9 % (11.5-15.5); WBC 8.5 k/uL (3.8-10.6)
[2018-01-11] MEDS ORDERED: ENOXAPARIN 40 MG/0.4 ML SYRINGE SQ SCH (09:00)
[2018-01-11 09:22] LABS: ALT 87 U/L (9-52); AST 124 U/L (14-36); Albumin 3.9 g/dL (3.5-5.0); Alkaline Phosphatase 71 U/L (38-126); Anion Gap 14 mmol/L; Blood Urea Nitrogen 9 mg/dL (7-17); Carbon Dioxide 26 mmol/L (22-30); Chloride 102 mmol/L (98-107); Glucose 100 mg/dL (74-99); Sodium 142 mmol/L (137-145); Total Bilirubin 0.4 mg/dL (0.2-1.3); Total Protein 7.2 g/dL (6.3-8.2)
[2018-01-11 09:29] LABS: Potassium 4.5 mmol/L (3.5-5.1)
[2018-01-11] MEDS: SODIUM CHLORIDE 0.9% 1,000 ML IV SCH (09:30)
--- NOTE | 2018-01-11 10:48 | PN ---
PROGRESS NOTE DATE OF SERVICE: January 11, 2018 The patient is a 22 -year-old white female presents to the hospital with right upper quadrant abdominal pain, nausea, vomiting. Low-grade fevers for the last 3-4 days duration. She has history of fatty liver disease with elevated LFTs and was diagnosed a couple of years ago. She recently underwent an upper endoscopy as well as colonoscopy by Dr. Rocha for abdominal pain in November of 2017 and was noted to have mild gastritis and normal colonoscopy. Today she states that the abdominal pain is improving. She has some nausea but no emesis. Tolerating regular diet well. No fever, chills, or night sweats. PHYSICAL EXAMINATION: Appears comfortable. No apparent distress. Vital signs stable. Blood pressure 140/99, pulse rate 106, temperature 98.2. HEENT examination unremarkable. Conjunctivae pink. Sclerae anicteric. Oral cavity no lesions. Neck: No jugular venous distention or lymph node enlargement. Chest was clear to auscultation. HEART: Regular rate and rhythm. Abdomen is obese. Mild tenderness in the right upper quadrant area. Bowel sounds are positive. No organomegaly. Extremities: No pedal edema: Skin no rashes. Neuro: She is alert and oriented x3. No focal deficits. LAB: WBC was 14.4 yesterday, today is 8.5, hemoglobin is normal. ALT, AST are 124 and 87 respectively. Rest of the labs are within normal limits. Hepatitis A, B, and C were negative. IMPRESSION: 1. This is a lady who presents to the hospital with right upper quadrant abdominal pain associated with nausea, vomiting for the last 3-4 days duration and had low- grade fever at the time of admission the hospital. He did have a CT of the abdomen and pelvis that showed some hepatic splenomegaly, but otherwise it was unremarkable. Since being in the hospital, her symptoms have gradually improved and fever has completely resolved. Dr. Morris from Infectious Disease has been consulted. At this time she is being monitored closely off antibiotic therapy. 2. Nausea, vomiting, and recent episode of rectal bleeding for which she underwent EGD colonoscopy by Dr. Rocha on December 11, 2017 and was noted to have mild gastritis and normal colonoscopy. 3. Elevated LFTs secondary to nonalcoholic fatty liver disease. No evidence of cirrhosis of the liver. RECOMMENDATIONS: 1. I agree with symptomatic and supportive care. 2. No need for any further endoscopy intervention. 3. We will follow her closely during hospital stay. Thank you for this consultation. MMCHRIS / IJN: [id number] /
[2018-01-11 11:22] LABS: Glucose,Whole Blood 86 mg/dL (75-99)
--- NOTE | 2018-01-11 13:55 | P.DS ---
Providers Date of admission: 01/10/18 03:32 Expected date of discharge: 01/11/18 Attending physician: Elbert Huff Consults: 01/10/18 10:33 Consult Physician Routine Consulting Provider: Justin Rocha Consult Reason/Comments: abdominal pain, liver disease Do you want consulting provider notified?: Yes Consult Physician Routine Consulting Provider: Oscar Morris Consult Reason/Comments: fever, leukocytosis Do you want consulting provider notified?: Yes Primary care physician: Marysol Rose [facility] Course: This is 22-year-old female who presented to the hospital with symptoms suggesting for viral acute gastroenteritis. Patient was admitted and treated with supportive care. Her overall condition improved. Computed tomography scan of the abdomen and pelvis showed evidence of fatty liver disease. Liver enzymes were slightly elevated. Patient was counseled regarding weight loss and exercise. Acute viral hepatitis panel was negative. Patient was seen by infectious disease and GI. She was medically cleared for discharge. She will be discharged home in a stable condition. Patient is also maintained on multiple antipsychotics secondary to her complex psychiatric history. She was advised to follow-up with her psychiatrist next week. Repeat liver function test early next week. Patient Condition at Discharge: Serious Plan - Discharge Summary Discharge Rx Participant: Yes New Discharge Prescriptions: Continue Albuterol Inhaler [Ventolin Hfa Inhaler] 2 puff INHALATION RT-Q6H PRN PRN Reason: Shortness Of Breath [place] Carbonate 900 mg PO HS Omeprazole [PriLOSEC] 20 mg PO BID Levothyroxine Sodium [Synthroid] 125 mcg PO QAM FLUoxetine HCL [PROzac] 40 mg PO QAM Ondansetron HCl [Zofran] 4 mg PO HS Ergocalciferol [Vitamin D2 (DRISDOL)] 50,000 unit PO BELL Flunisolide [Aerospan] 2 puff INHALATION RT-BID Montelukast [Singulair] 10 mg PO HS cloNIDine HCL [Catapres] 0.2 mg PO HS Potassium Chloride [K-Tab ER] 10 meq PO DAILY clonazePAM [KlonoPIN] 2 mg PO HS #7 tab metFORMIN HCL ER [Glucophage Xr] 500 mg PO HS Imipramine HCl [Tofranil] 50 mg PO DAILY Discontinued Loratadine 10 mg PO QAM Famotidine [Pepcid] 20 mg PO BID Discharge Medication List Albuterol Inhaler [Ventolin Hfa Inhaler] 2 puff INHALATION RT-Q6H PRN 08/27/15 [ History] [place] Carbonate 900 mg PO HS 08/27/15 [History] Omeprazole [PriLOSEC] 20 mg PO BID 08/27/15 [History] Levothyroxine Sodium [Synthroid] 125 mcg PO QAM 01/06/17 [History] FLUoxetine HCL [PROzac] 40 mg PO QAM 01/23/17 [History] Ondansetron HCl [Zofran] 4 mg PO HS 01/23/17 [History] Ergocalciferol [Vitamin D2 (DRISDOL)] 50,000 unit PO BELL 02/13/17 [History] Flunisolide [Aerospan] 2 puff INHALATION RT-BID 02/13/17 [History] Montelukast [Singulair] 10 mg PO HS 05/21/17 [History] cloNIDine HCL [Catapres] 0.2 mg PO HS 05/21/17 [History] Potassium Chloride [K-Tab ER] 10 meq PO DAILY 09/14/17 [History] clonazePAM [KlonoPIN] 2 mg PO HS #7 tab 09/14/17 [Rx] metFORMIN HCL ER [Glucophage Xr] 500 mg PO HS 11/20/17 [History] Imipramine HCl [Tofranil] 50 mg PO DAILY 01/10/18 [History] Follow up Appointment(s)/Referral(s): Marysol Rose DO [Primary Care Provider] - 1-2 days Ambulatory/Diagnostic Orders: Comprehensive Metabolic Panel [LAB.AMB] Time Frame: 3 Days, Location: Determined By Patient Discharge Disposition: HOME SELF-CARE
--- NOTE | 2018-01-11 15:18 | PN ---
PROGRESS NOTE DATE OF SERVICE: 01/11/2018. REASON FOR FOLLOWUP VISIT: Fever, possible viral syndrome. INTERVAL HISTORY: The patient is afebrile. She is breathing comfortably. Denies having any chest pain. No shortness of breath or cough. Abdominal pain has improved. No nausea, vomiting, or any diarrhea. EXAMINATION: Blood pressure is 133/86, pulse of 92, temperature 97.6. She is 95% on room air. General description is a young female, up in the bed in no distress. Respiratory system: Unlabored breathing. Clear to auscultation anteriorly. Heart S1, S2. Regular rate and rhythm. ABDOMEN: Soft, no tenderness. LABS: White count normalized 8.5. Liver enzymes slightly elevated. Blood cultures have been negative. DIAGNOSTIC IMPRESSION AND PLAN: Patient with fever and mildly elevated white count. However, all of them have been negative. She is currently off antibiotic therapy, questionably viral syndrome. No need for antibiotic on discharge. Continue supportive care. MMODL / IJN: [id number] /
[2018-01-12] MEDS ORDERED: ERGOCALCIFEROL 50,000 UNIT CAP PO SCH (06:00)
[2018-01-12] MEDS ORDERED: metFORMIN 500 MG TAB PO SCH (09:00)
== END 2018-01-11 14:49 | disposition home or self-care (01) ==
LOC: EC 22:44 → INTOOBSV 01-10 03:32 → 4MS4W 01-10 03:32 → UNDODISIN 01-11 14:49
PROVIDERS: ADMIT Internal Medicine; ATTEND Internal Medicine
DX: R10.11 Right upper quadrant pain (principal); Z68.41 Body mass index [BMI] 40.0-44.9, adult; G89.29 Other chronic pain; R50.9 Fever, unspecified; D72.829 Elevated white blood cell count, unspecified; K75.81 Nonalcoholic steatohepatitis (NASH); K74.60 Unspecified cirrhosis of liver; T43.505A Adverse effect of unspecified antipsychotics and neuroleptics, initial encounter; R00.0 Tachycardia, unspecified; R07.9 Chest pain, unspecified; R11.2 Nausea with vomiting, unspecified; F20.9 Schizophrenia, unspecified; M79.7 Fibromyalgia; J45.909 Unspecified asthma, uncomplicated; E11.9 Type 2 diabetes mellitus without complications; K21.9 Gastro-esophageal reflux disease without esophagitis; G43.909 Migraine, unspecified, not intractable, without status migrainosus; K58.0 Irritable bowel syndrome with diarrhea; F43.10 Post-traumatic stress disorder, unspecified; F41.1 Generalized anxiety disorder; K29.70 Gastritis, unspecified, without bleeding; K20.0 Eosinophilic esophagitis; E66.01 Morbid (severe) obesity due to excess calories; F40.00 Agoraphobia, unspecified; E03.9 Hypothyroidism, unspecified; F31.9 Bipolar disorder, unspecified; Z90.49 Acquired absence of other specified parts of digestive tract; Z79.84 Long term (current) use of oral hypoglycemic drugs; Z79.51 Long term (current) use of inhaled steroids; Z79.890 Hormone replacement therapy; Z79.899 Other long term (current) drug therapy; Z91.040 Latex allergy status; Z88.5 Allergy status to narcotic agent; Z88.0 Allergy status to penicillin; Z91.013 Allergy to seafood; Z91.018 Allergy to other foods; Z88.6 Allergy status to analgesic agent; Z87.01 Personal history of pneumonia (recurrent); Z83.79 Family history of other diseases of the digestive system
CPT/HCPCS: 36415; 71046; 74018; 74177; 80053; 80074; 81001; 82150; 83036; 83605; 83690; 84484; 85025; 87040; 93005; 94640; 96361; 96365; 96372; 96374; 96375; 96376; 99285

== ENCOUNTER 2018-02-04 17:26 | Emergency (ER) | payer OTHER ==
[2018-02-04 19:54] LABS: Appearance,Urine Cloudy (Clear); Bilirubin,Urine Negative (Negative); Blood,Urine Negative (Negative); Color,Urine Yellow; Glucose,Urine (UA) Negative (Negative); Ketones,Urine Negative (Negative); Leukocyte Esterase,Urine Trace (Negative); Mucus,Urine Rare /hpf; Nitrite,Urine Negative (Negative); PH, Urine 5.5 (5.0-8.0); Protein,Urine Trace (Negative); RBC,Urine <1 /hpf (0-5); Squamous Epithelial Cell,Urine 16 /hpf (0-4); Urobilinogen,Urine <2.0 mg/dL (<2.0); WBC,Urine 5 /hpf (0-5)
[2018-02-04 19:55] LABS: Basophils % (A) 0 %; Eosinophils # (A) 0.5 k/uL (0-0.7); Eosinophils % (A) 4 %; HCT 40.8 % (34.0-46.0); HGB 13.4 gm/dL (11.4-16.0); Lymphocytes # (A) 2.9 k/uL (1.0-4.8); Lymphocytes % (A) 25 %; MCH 28.3 pg (25.0-35.0); MCHC 32.8 g/dL (31.0-37.0); MCV 86.4 fL (80.0-100.0); Mean Platelet Volume 6.5; Monocytes # (A) 0.5 k/uL (0-1.0); Monocytes % (A) 4 %; Neutrophils # (A) 7.5 k/uL (1.3-7.7); Neutrophils % (A) 65 %; Platelet Count 344 k/uL (150-450); RBC 4.73 m/uL (3.80-5.40); RDW 13.1 % (11.5-15.5); WBC 11.6 k/uL (3.8-10.6)
[2018-02-04 20:00] LABS: ALT 78 U/L (9-52); AST 85 U/L (14-36); Albumin 4.2 g/dL (3.5-5.0); Alkaline Phosphatase 82 U/L (38-126); Amylase 48 U/L (30-110); Anion Gap 18 mmol/L; Blood Urea Nitrogen 10 mg/dL (7-17); Calcium 10.2 mg/dL (8.4-10.2); Carbon Dioxide 19 mmol/L (22-30); Chloride 105 mmol/L (98-107); Glucose 114 mg/dL (74-99); Lipase 76 U/L (23-300); Potassium 4.3 mmol/L (3.5-5.1); Sodium 142 mmol/L (137-145); Total Bilirubin 0.2 mg/dL (0.2-1.3); Total Protein 7.8 g/dL (6.3-8.2)
[2018-02-04] MEDS ORDERED: ONDANSETRON 4 MG/2 ML VIAL IVP STA (20:35)
[2018-02-04] MEDS ORDERED: SODIUM CHLORIDE 0.9% 1,000 ML IV STA (20:35)
[2018-02-04] MEDS ORDERED: MORPHINE SULFATE 4 MG/ML SYRINGE IVP STA ×2 (20:35→21:57)
--- NOTE | 2018-02-04 20:43 | ED ---
General Adult HPI - General Chief complaint: Abdominal Pain Stated complaint: Chest pain & Pain in liver Time Seen by Provider: 02/04/18 20:29 Source: patient, RN notes reviewed Mode of arrival: ambulatory Limitations: no limitations - History of Present Illness Initial comments: Patient 22-year-old female with significant past medical history for liver cirrhosis, presenting to the emergency room today with a chief complaint of increased pain to the right upper quadrant. Patient states that symptoms are consistent with cirrhosis that she's had in the past. She does admit that her pain has been increased last for 5 days his had difficult time with eating due to some nausea and dry heaving. Patient does also admit to a history of gastroparesis. She admits to past medical surgeries of cholecystectomy and appendectomy. She denies any other complaints or symptoms at this time. Patient denies any recent fever, chills, shortness of breath, chest pain, numbness or tingling, dysuria or hematuria, constipation or diarrhea, headaches or visual changes, or any other complaints. - Related Data Home Medications Medication Instructions Recorded Confirmed Albuterol Inhaler [Ventolin Hfa 2 puff INHALATION RT-Q6H PRN 08/27/15 02/04/18 Inhaler] [place] Carbonate 900 mg PO HS 08/27/15 02/04/18 Omeprazole [PriLOSEC] 20 mg PO BID 08/27/15 02/04/18 Levothyroxine Sodium [Synthroid] 125 mcg PO QAM 01/06/17 02/04/18 FLUoxetine HCL [PROzac] 40 mg PO QAM 01/23/17 02/04/18 Ergocalciferol [Vitamin D2 50,000 unit PO BELL 02/13/17 02/04/18 (DRISDOL)] Montelukast [Singulair] 10 mg PO HS 05/21/17 02/04/18 cloNIDine HCL [Catapres] 0.2 mg PO HS 05/21/17 02/04/18 Potassium Chloride [K-Tab ER] 10 meq PO DAILY 09/14/17 02/04/18 metFORMIN HCL ER [Glucophage Xr] 500 mg PO HS 11/20/17 02/04/18 Imipramine HCl [Tofranil] 50 mg PO DAILY 01/10/18 02/04/18 Famotidine [Pepcid] 20 mg PO BID 02/04/18 02/04/18 Loratadine [Claritin] 10 mg PO DAILY 02/04/18 02/04/18 Norgestimate-Ethinyl Estradiol 1 tab PO DAILY 02/04/18 02/04/18 [Sprintec 28 Day Tablet] clonazePAM [KlonoPIN] 0.5 mg PO HS 02/04/18 02/04/18 Allergies Allergy/AdvReac Type Severity Reaction Status Date / Time fentanyl Allergy Rash/Hives Verified 02/04/18 20:16 grape Allergy Anaphylaxis Verified 02/04/18 20:16 latex Allergy Rash/Hives Verified 02/04/18 20:16 Penicillins Allergy Anaphylaxis Verified 02/04/18 20:16 ibuprofen [From Motrin] AdvReac GI Bleed Verified 02/04/18 20:16 prazosin AdvReac Nausea & Verified 02/04/18 20:16 Vomiting Seafood Allergy Anaphylaxis Uncoded 02/04/18 18:31 Review of Systems ROS Statement: Those systems with pertinent positive or pertinent negative responses have been documented in the HPI. ROS Other: All systems not noted in ROS Statement are negative. Past Medical History Past Medical History: Asthma, Chest Pain / Angina, Diabetes Mellitus, Fibromyalgia, GERD/Reflux, Liver Disease, Thyroid Disorder Additional Past Medical History / Comment(s): Hepatitis, Cirrhosis of the liver. Esophagalitis. Migraines. IBS. PART OF STOMACH NON-FUNCTIONING. BLOOD IN STOOL, VOMITING DAILY. History of Any Multi-Drug Resistant Organisms: None Reported Past Surgical History: Appendectomy, Cholecystectomy, Tonsillectomy Additional Past Surgical History / Comment(s): NASAL Septum repair. COLONOSCOPY. Past Anesthesia/Blood Transfusion Reactions: Motion Sickness Past Psychological History: Anxiety, Depression, PTSD Smoking Status: Never smoker Past Alcohol Use History: None Reported Past Drug Use History: None Reported - Past Family History Mother Family Medical History: No Reported History Father Family Medical History: Liver Disease Additional Family Medical History / Comment(s): cirrhosis, esophagus disease General Exam - General Exam Comments Initial Comments: General: The patient is awake and alert, in no distress, and does not appear acutely ill. Eye: Pupils are equal, round and reactive to light, extra-ocular movements are intact. No nystagmus. There is normal conjunctiva bilaterally. No signs of icterus. Ears, nose, mouth and throat: There are moist mucous membranes and no oral lesions. Neck: The neck is supple, there is no tenderness or JVD. Cardiovascular: There is a regular rate and rhythm. No murmur, rub or gallop is appreciated. Respiratory: Lungs are clear to auscultation, respirations are non-labored, breath sounds are equal. No wheezes, stridor, rales, or rhonchi. Gastrointestinal: Admits that on palpation. Patient does have tenderness right upper quadrant. Mildly tender epigastric. No rebound tenderness. No guarding. Musculoskeletal: Normal ROM, no tenderness. Strength 5/5. Sensation intact. Pulses equal bilaterally 2+. Neurological: A&O x 3. CN II-XII intact, There are no obvious motor or sensory deficits. Coordination appears grossly intact. Speech is normal. Skin: Skin is warm and dry and no rashes or lesions are noted. Psychiatric: Cooperative, appropriate mood & affect, normal judgment. Limitations: no limitations Course Vital Signs 02/04/18 02/04/18 18:27 21:00 Temperature 98.3 F 98.6 F Pulse Rate 123 H 107 H Respiratory 18 16 Rate Blood Pressure 161/100 137/83 O2 Sat by Pulse 97 98 Oximetry Medical Decision Making - Medical Decision Making Patient lives been reviewed. Patient does not that the symptoms are consistent with cirrhosis and gastroparesis that she's had in the past. Patient will be discharged home advised follow-up with GI and family doctor. Patient and family member as bedside state understanding and are in agreement. - Lab Data Result diagrams: 02/04/18 19:26 02/04/18 19:26 Lab Results 02/04/18 02/04/18 02/04/18 Range/Units 19:26 19:26 19:26 WBC 11.6 H (3.8-10.6) k/uL RBC 4.73 (3.80-5.40) m/uL Hgb 13.4 (11.4-16.0) gm/dL Hct 40.8 (34.0-46.0) % MCV 86.4 (80.0-100.0) fL MCH 28.3 (25.0-35.0) pg MCHC 32.8 (31.0-37.0) g/dL RDW 13.1 (11.5-15.5) % Plt Count 344 (150-450) k/uL Neutrophils % 65 % Lymphocytes % 25 % Monocytes % 4 % Eosinophils % 4 % Basophils % 0 % Neutrophils # 7.5 (1.3-7.7) k/uL Lymphocytes # 2.9 (1.0-4.8) k/uL Monocytes # 0.5 (0-1.0) k/uL Eosinophils # 0.5 (0-0.7) k/uL Basophils # 0.0 (0-0.2) k/uL Sodium 142 (137-145) mmol/L Potassium 4.3 (3.5-5.1) mmol/L Chloride 105 (98-107) mmol/L Carbon Dioxide 19 L (22-30) mmol/L Anion Gap 18 mmol/L BUN 10 (7-17) mg/dL Creatinine 0.70 (0.52-1.04) mg/dL Est GFR (CKD-EPI)AfAm >90 (>60 ml/min/1.73 sqM) Est GFR (CKD-EPI)NonAf >90 (>60 ml/min/1.73 sqM) Glucose 114 H (74-99) mg/dL Calcium 10.2 (8.4-10.2) mg/dL Total Bilirubin 0.2 (0.2-1.3) mg/dL AST 85 H (14-36) U/L ALT 78 H (9-52) U/L Alkaline Phosphatase 82 (38-126) U/L Total Protein 7.8 (6.3-8.2) g/dL Albumin 4.2 (3.5-5.0) g/dL Amylase 48 (30-110) U/L Lipase 76 (23-300) U/L Urine Color Urine Appearance (Clear) Urine pH (5.0-8.0) Ur Specific [place] (1.001-1.035) Urine Protein (Negative) Urine Glucose (UA) (Negative) Urine Ketones (Negative) Urine Blood (Negative) Urine Nitrite (Negative) Urine Bilirubin (Negative) Urine Urobilinogen (<2.0) mg/dL Ur Leukocyte Esterase (Negative) Urine RBC (0-5) /hpf Urine WBC (0-5) /hpf Ur Squamous Epith Cells (0-4) /hpf Urine Mucus (None) /hpf Urine HCG, Qual Not Detected (Not Detectd) 02/04/18 Range/Units 19:26 WBC (3.8-10.6) k/uL RBC (3.80-5.40) m/uL Hgb (11.4-16.0) gm/dL Hct (34.0-46.0) % MCV (80.0-100.0) fL MCH (25.0-35.0) pg MCHC (31.0-37.0) g/dL RDW (11.5-15.5) % Plt Count (150-450) k/uL Neutrophils % % Lymphocytes % % Monocytes % % Eosinophils % % Basophils % % Neutrophils # (1.3-7.7) k/uL Lymphocytes # (1.0-4.8) k/uL Monocytes # (0-1.0) k/uL Eosinophils # (0-0.7) k/uL Basophils # (0-0.2) k/uL Sodium (137-145) mmol/L Potassium (3.5-5.1) mmol/L Chloride (98-107) mmol/L Carbon Dioxide (22-30) mmol/L Anion Gap mmol/L BUN (7-17) mg/dL Creatinine (0.52-1.04) mg/dL Est GFR (CKD-EPI)AfAm (>60 ml/min/1.73 sqM) Est GFR (CKD-EPI)NonAf (>60 ml/min/1.73 sqM) Glucose (74-99) mg/dL Calcium (8.4-10.2) mg/dL Total Bilirubin (0.2-1.3) mg/dL AST (14-36) U/L ALT (9-52) U/L Alkaline Phosphatase (38-126) U/L Total Protein (6.3-8.2) g/dL Albumin (3.5-5.0) g/dL Amylase (30-110) U/L Lipase (23-300) U/L Urine Color Yellow Urine Appearance Cloudy H (Clear) Urine pH 5.5 (5.0-8.0) Ur Specific [place] 1.020 (1.001-1.035) Urine Protein Trace H (Negative) Urine Glucose (UA) Negative (Negative) Urine Ketones Negative (Negative) Urine Blood Negative (Negative) Urine Nitrite Negative (Negative) Urine Bilirubin Negative (Negative) Urine Urobilinogen <2.0 (<2.0) mg/dL Ur Leukocyte Esterase Trace H (Negative) Urine RBC <1 (0-5) /hpf Urine WBC 5 (0-5) /hpf Ur Squamous Epith Cells 16 H (0-4) /hpf Urine Mucus Rare H (None) /hpf Urine HCG, Qual (Not Detectd) Disposition Clinical Impression: Abdominal pain Disposition: HOME SELF-CARE Condition: Good Instructions: Abdominal Pain (ED) Additional Instructions: Please follow-up with GI/family doctor in the next 2 days of symptoms have not improved. Please return to emergency room if the symptoms increase or worsen or for any other concerns. Is patient prescribed a controlled substance at d/c from ED?: No Referrals: Marysol Rose DO [Primary Care Provider] - 1-2 days Justin Rocha MD [STAFF PHYSICIAN] - 1-2 days Time of Disposition: 21:50
[2018-02-04 21:07] VITALS: BP 137/83; PULSE 107; RESP 16; TEMP 98.6
== END 2018-02-04 22:07 | disposition home or self-care (01) ==
LOC: EC 17:26
DX: R10.11 Right upper quadrant pain (principal); R11.0 Nausea; J45.909 Unspecified asthma, uncomplicated; E11.9 Type 2 diabetes mellitus without complications; K21.9 Gastro-esophageal reflux disease without esophagitis; E07.9 Disorder of thyroid, unspecified; K58.9 Irritable bowel syndrome, unspecified; F41.9 Anxiety disorder, unspecified; F32.9 Major depressive disorder, single episode, unspecified; F43.10 Post-traumatic stress disorder, unspecified; Z87.19 Personal history of other diseases of the digestive system; Z90.49 Acquired absence of other specified parts of digestive tract; Z98.890 Other specified postprocedural states; Z79.3 Long term (current) use of hormonal contraceptives; Z79.84 Long term (current) use of oral hypoglycemic drugs; Z79.899 Other long term (current) drug therapy; Z88.0 Allergy status to penicillin; Z88.5 Allergy status to narcotic agent; Z88.6 Allergy status to analgesic agent; Z88.8 Allergy status to other drugs, medicaments and biological substances; Z91.013 Allergy to seafood; Z91.018 Allergy to other foods; Z91.040 Latex allergy status
CPT/HCPCS: 36415; 93005; 80053; 82150; 83690; 85025; 81001; 81025; 99284; 96374; 96375; 96376; 96361; J2270; J2405

== ENCOUNTER 2018-02-05 22:52 | Emergency (ER) | payer OTHER ==
[2018-02-06] MEDS ORDERED: SODIUM CHLORIDE 0.9% 1,000 ML IV STA (00:13)
[2018-02-06] MEDS ORDERED: MORPHINE SULFATE 4 MG/ML SYRINGE IVP STA ×2 (00:14→02:08)
--- NOTE | 2018-02-06 01:10 | ED ---
Abdominal Pain HPI - General Chief Complaint: Abdominal Pain Stated Complaint: Liver Pain Time Seen by Provider: 02/05/18 23:20 Source: patient, family Mode of arrival: ambulatory Limitations: no limitations - History of Present Illness Initial Comments: 22-year-old female patient with a past medical history significant for nonalcoholic cirrhosis and gastroparesis presents to the emergency department today for evaluation of right upper quadrant abdominal pain. Patient states that she has been having this similar pain for the last 4-5 days. States it is her usual chronic pain in her abdomen. She denies any change to the pain. States that she was seen and evaluated here yesterday and discharged home. She does have a follow-up appointment with her GI specialist Dr. Sarmiento tomorrow. Patient states that she did attempt taking [place] at home and did not help. Patient states she has been nauseated but has not vomited. She states she has been having diarrhea which is a daily occurrence for her. States she's had 2 episodes today. She denies any fevers or chills. She denies any recent travel or sick contacts. Patient denies any recent rash, shortness breath, chest pain, back pain, numbness, tingling, dizziness, weakness, hematuria, dysuria, urinary urgency, urinary frequency, headache, visual changes, or any other complaints. - Related Data Home Medications Medication Instructions Recorded Confirmed Albuterol Inhaler [Ventolin Hfa 2 puff INHALATION RT-Q6H PRN 08/27/15 02/05/18 Inhaler] [place] Carbonate 900 mg PO HS 08/27/15 02/05/18 Omeprazole [PriLOSEC] 20 mg PO BID 08/27/15 02/05/18 Levothyroxine Sodium [Synthroid] 125 mcg PO QAM 01/06/17 02/05/18 FLUoxetine HCL [PROzac] 40 mg PO QAM 01/23/17 02/05/18 Ergocalciferol [Vitamin D2 50,000 unit PO BELL 02/13/17 02/05/18 (DRISDOL)] Montelukast [Singulair] 10 mg PO HS 05/21/17 02/05/18 cloNIDine HCL [Catapres] 0.2 mg PO HS 05/21/17 02/05/18 Potassium Chloride [K-Tab ER] 10 meq PO DAILY 09/14/17 02/05/18 metFORMIN HCL ER [Glucophage Xr] 500 mg PO HS 11/20/17 02/05/18 Imipramine HCl [Tofranil] 50 mg PO DAILY 01/10/18 02/05/18 Famotidine [Pepcid] 20 mg PO BID 02/04/18 02/05/18 Loratadine [Claritin] 10 mg PO DAILY 02/04/18 02/05/18 Norgestimate-Ethinyl Estradiol 1 tab PO DAILY 02/04/18 02/05/18 [Sprintec 28 Day Tablet] clonazePAM [KlonoPIN] 0.5 mg PO HS 02/04/18 02/05/18 Previous Rx's Medication Instructions Recorded Metoclopramide [Reglan] 10 mg PO Q8H PRN #10 tab 02/06/18 Allergies Allergy/AdvReac Type Severity Reaction Status Date / Time fentanyl Allergy Rash/Hives Verified 02/05/18 23:11 grape Allergy Anaphylaxis Verified 02/05/18 23:11 latex Allergy Rash/Hives Verified 02/05/18 23:11 Penicillins Allergy Anaphylaxis Verified 02/05/18 23:11 ibuprofen [From Motrin] AdvReac GI Bleed Verified 02/05/18 23:11 prazosin AdvReac Nausea & Verified 02/05/18 23:11 Vomiting Seafood Allergy Anaphylaxis Uncoded 02/05/18 23:07 Review of Systems ROS Statement: Those systems with pertinent positive or pertinent negative responses have been documented in the HPI. ROS Other: All systems not noted in ROS Statement are negative. Past Medical History Past Medical History: Asthma, Chest Pain / Angina, Diabetes Mellitus, Fibromyalgia, GERD/Reflux, Liver Disease, Thyroid Disorder Additional Past Medical History / Comment(s): Hepatitis, Cirrhosis of the liver. Esophagalitis. Migraines. IBS. PART OF STOMACH NON-FUNCTIONING. BLOOD IN STOOL, VOMITING DAILY. pt wearing heart monitor for chest pains History of Any Multi-Drug Resistant Organisms: None Reported Past Surgical History: Appendectomy, Cholecystectomy, Tonsillectomy Additional Past Surgical History / Comment(s): NASAL Septum repair. COLONOSCOPY. Past Anesthesia/Blood Transfusion Reactions: Motion Sickness Past Psychological History: Anxiety, Depression, PTSD Smoking Status: Never smoker Past Alcohol Use History: None Reported Past Drug Use History: None Reported - Past Family History Mother Family Medical History: No Reported History Father Family Medical History: Liver Disease Additional Family Medical History / Comment(s): cirrhosis, esophagus disease General Exam Limitations: no limitations General appearance: alert, in no apparent distress, other (This is a well- developed, obese adult female patient in no acute distress. Vital signs upon presentation are temperature 98.6F, pulse 120, respirations 20, blood pressure 135/94, pulse ox 97% on room air.) Eye exam: Present: normal appearance, PERRL, EOMI. Absent: scleral icterus, conjunctival injection, periorbital swelling ENT exam: Present: normal exam, normal oropharynx, mucous membranes moist Respiratory exam: Present: normal lung sounds bilaterally. Absent: respiratory distress, wheezes, rales, rhonchi, stridor Cardiovascular Exam: Present: regular rate, normal rhythm, normal heart sounds. Absent: systolic murmur, diastolic murmur, rubs, gallop, clicks GI/Abdominal exam: Present: soft, tenderness (Right upper quadrant tenderness), normal bowel sounds. Absent: distended, guarding, rebound, rigid Neurological exam: Present: alert, oriented X3, CN II-XII intact Psychiatric exam: Present: normal affect, normal mood Skin exam: Present: warm, dry, intact, normal color. Absent: rash Course Vital Signs 02/05/18 02/06/18 23:02 02:21 Temperature 98.6 F 98.2 F Pulse Rate 120 H 101 H Respiratory 20 18 Rate Blood Pressure 135/94 137/82 O2 Sat by Pulse 97 98 Oximetry Medical Decision Making - Medical Decision Making 22-year-old female patient presented to the emergency department today for evaluation of right upper quadrant abdominal pain. Patient does have history of nonalcoholic cirrhosis of the liver and does have chronic pain with this. Patient has been evaluated here multiple times for similar complaints. Labs reviewed and were unremarkable today. Patient is afebrile. Patient is given pain medication and nausea medicine here in the department. She is feeling somewhat better at time of discharge. She does have an appointment with her GI specialist Dr. Sarmiento tomorrow your discussing liver biopsy and possible transfer or evaluation at a tertiary care facility. Patient will be given a prescription for Reglan data her Zofran to help manage her nausea. She is instructed to return here immediately for any new, worsening, or concerning symptoms. She verbalizes understanding and agrees with this plan. - Lab Data Result diagrams: 02/06/18 01:18 02/06/18 01:18 Lab Results 02/06/18 02/06/18 02/06/18 Range/Units 01:18 01:18 01:20 WBC 9.7 (3.8-10.6) k/uL RBC 4.09 (3.80-5.40) m/uL Hgb 11.6 (11.4-16.0) gm/dL Hct 35.6 (34.0-46.0) % MCV 87.0 (80.0-100.0) fL MCH 28.4 (25.0-35.0) pg MCHC 32.6 (31.0-37.0) g/dL RDW 13.4 (11.5-15.5) % Plt Count 290 (150-450) k/uL Neutrophils % 62 % Lymphocytes % 28 % Monocytes % 4 % Eosinophils % 5 % Basophils % 0 % Neutrophils # 6.0 (1.3-7.7) k/uL Lymphocytes # 2.7 (1.0-4.8) k/uL Monocytes # 0.4 (0-1.0) k/uL Eosinophils # 0.4 (0-0.7) k/uL Basophils # 0.0 (0-0.2) k/uL Sodium 142 (137-145) mmol/L Potassium 3.9 (3.5-5.1) mmol/L Chloride 107 (98-107) mmol/L Carbon Dioxide 23 (22-30) mmol/L Anion Gap 12 mmol/L BUN 11 (7-17) mg/dL Creatinine 0.80 (0.52-1.04) mg/dL Est GFR (CKD-EPI)AfAm >90 (>60 ml/min/1.73 sqM) Est GFR (CKD-EPI)NonAf >90 (>60 ml/min/1.73 sqM) Glucose 96 (74-99) mg/dL Calcium 9.0 (8.4-10.2) mg/dL Total Bilirubin 0.2 (0.2-1.3) mg/dL AST 87 H (14-36) U/L ALT 81 H (9-52) U/L Alkaline Phosphatase 66 (38-126) U/L Total Protein 6.5 (6.3-8.2) g/dL Albumin 3.5 (3.5-5.0) g/dL Amylase 41 (30-110) U/L Lipase 56 (23-300) U/L Urine Color Urine Appearance (Clear) Urine pH (5.0-8.0) Ur Specific [place] (1.001-1.035) Urine Protein (Negative) Urine Glucose (UA) (Negative) Urine Ketones (Negative) Urine Blood (Negative) Urine Nitrite (Negative) Urine Bilirubin (Negative) Urine Urobilinogen (<2.0) mg/dL Ur Leukocyte Esterase (Negative) Urine RBC (0-5) /hpf Urine WBC (0-5) /hpf Ur Squamous Epith Cells (0-4) /hpf Urine Mucus (None) /hpf Urine HCG, Qual Not Detected (Not Detectd) 02/06/18 Range/Units 01:20 WBC (3.8-10.6) k/uL RBC (3.80-5.40) m/uL Hgb (11.4-16.0) gm/dL Hct (34.0-46.0) % MCV (80.0-100.0) fL MCH (25.0-35.0) pg MCHC (31.0-37.0) g/dL RDW (11.5-15.5) % Plt Count (150-450) k/uL Neutrophils % % Lymphocytes % % Monocytes % % Eosinophils % % Basophils % % Neutrophils # (1.3-7.7) k/uL Lymphocytes # (1.0-4.8) k/uL Monocytes # (0-1.0) k/uL Eosinophils # (0-0.7) k/uL Basophils # (0-0.2) k/uL Sodium (137-145) mmol/L Potassium (3.5-5.1) mmol/L Chloride (98-107) mmol/L Carbon Dioxide (22-30) mmol/L Anion Gap mmol/L BUN (7-17) mg/dL Creatinine (0.52-1.04) mg/dL Est GFR (CKD-EPI)AfAm (>60 ml/min/1.73 sqM) Est GFR (CKD-EPI)NonAf (>60 ml/min/1.73 sqM) Glucose (74-99) mg/dL Calcium (8.4-10.2) mg/dL Total Bilirubin (0.2-1.3) mg/dL AST (14-36) U/L ALT (9-52) U/L Alkaline Phosphatase (38-126) U/L Total Protein (6.3-8.2) g/dL Albumin (3.5-5.0) g/dL Amylase (30-110) U/L Lipase (23-300) U/L Urine Color Yellow Urine Appearance Cloudy H (Clear) Urine pH 5.0 (5.0-8.0) Ur Specific [place] 1.016 (1.001-1.035) Urine Protein Negative (Negative) Urine Glucose (UA) Negative (Negative) Urine Ketones Negative (Negative) Urine Blood Negative (Negative) Urine Nitrite Negative (Negative) Urine Bilirubin Negative (Negative) Urine Urobilinogen <2.0 (<2.0) mg/dL Ur Leukocyte Esterase Negative (Negative) Urine RBC 2 (0-5) /hpf Urine WBC 2 (0-5) /hpf Ur Squamous Epith Cells 7 H (0-4) /hpf Urine Mucus Rare H (None) /hpf Urine HCG, Qual (Not Detectd) Disposition Clinical Impression: Chronic abdominal pain Disposition: HOME SELF-CARE Condition: Good Instructions: Abdominal Pain (ED) Additional Instructions: Take medications as directed. Follow-up with your GI specialist tomorrow as you have planned. Return here immediately for any new, worsening, or concerning symptoms. Prescriptions: Metoclopramide [Reglan] 10 mg PO Q8H PRN #10 tab PRN Reason: Vomiting Is patient prescribed a controlled substance at d/c from ED?: No When asked, does pt state using other controlled substances?: No Referrals: Marysol Rose DO [Primary Care Provider] - 1-2 days Time of Disposition: 02:09
[2018-02-06 01:25] LABS: Basophils % (A) 0 %; Eosinophils # (A) 0.4 k/uL (0-0.7); Eosinophils % (A) 5 %; HCT 35.6 % (34.0-46.0); HGB 11.6 gm/dL (11.4-16.0); Lymphocytes # (A) 2.7 k/uL (1.0-4.8); Lymphocytes % (A) 28 %; MCH 28.4 pg (25.0-35.0); MCHC 32.6 g/dL (31.0-37.0); Mean Platelet Volume 6.4; Monocytes # (A) 0.4 k/uL (0-1.0); Monocytes % (A) 4 %; Neutrophils % (A) 62 %; Platelet Count 290 k/uL (150-450); RBC 4.09 m/uL (3.80-5.40); RDW 13.4 % (11.5-15.5); WBC 9.7 k/uL (3.8-10.6)
[2018-02-06 01:35] LABS: Appearance,Urine Cloudy (Clear); Bilirubin,Urine Negative (Negative); Blood,Urine Negative (Negative); Color,Urine Yellow; Glucose,Urine (UA) Negative (Negative); Ketones,Urine Negative (Negative); Leukocyte Esterase,Urine Negative (Negative); Mucus,Urine Rare /hpf; Nitrite,Urine Negative (Negative); Protein,Urine Negative (Negative); RBC,Urine 2 /hpf (0-5); Specific Gravity,Urine 1.016 (1.001-1.035); Squamous Epithelial Cell,Urine 7 /hpf (0-4); Urobilinogen,Urine <2.0 mg/dL (<2.0); WBC,Urine 2 /hpf (0-5)
[2018-02-06 01:37] LABS: ALT 81 U/L (9-52); AST 87 U/L (14-36); Albumin 3.5 g/dL (3.5-5.0); Alkaline Phosphatase 66 U/L (38-126); Amylase 41 U/L (30-110); Anion Gap 12 mmol/L; Blood Urea Nitrogen 11 mg/dL (7-17); Carbon Dioxide 23 mmol/L (22-30); Chloride 107 mmol/L (98-107); Glucose 96 mg/dL (74-99); Lipase 56 U/L (23-300); Potassium 3.9 mmol/L (3.5-5.1); Sodium 142 mmol/L (137-145); Total Bilirubin 0.2 mg/dL (0.2-1.3); Total Protein 6.5 g/dL (6.3-8.2)
[2018-02-06] MEDS ORDERED: ONDANSETRON 4 MG/2 ML VIAL IVP STA (01:45)
[2018-02-06 02:23] VITALS: BP 137/82; PULSE 101; RESP 18; TEMP 98.2
== END 2018-02-06 02:35 | disposition home or self-care (01) ==
LOC: EC 22:52
DX: R10.11 Right upper quadrant pain (principal); G89.29 Other chronic pain; R11.0 Nausea; R19.7 Diarrhea, unspecified; J45.909 Unspecified asthma, uncomplicated; E11.9 Type 2 diabetes mellitus without complications; M79.7 Fibromyalgia; K21.9 Gastro-esophageal reflux disease without esophagitis; E07.9 Disorder of thyroid, unspecified; K58.9 Irritable bowel syndrome, unspecified; F41.9 Anxiety disorder, unspecified; F32.9 Major depressive disorder, single episode, unspecified; F43.10 Post-traumatic stress disorder, unspecified; Z90.49 Acquired absence of other specified parts of digestive tract; Z87.19 Personal history of other diseases of the digestive system; Z98.890 Other specified postprocedural states; Z79.3 Long term (current) use of hormonal contraceptives; Z79.84 Long term (current) use of oral hypoglycemic drugs; Z79.899 Other long term (current) drug therapy; Z88.0 Allergy status to penicillin; Z88.5 Allergy status to narcotic agent; Z88.6 Allergy status to analgesic agent; Z88.8 Allergy status to other drugs, medicaments and biological substances; Z91.013 Allergy to seafood; Z91.018 Allergy to other foods
CPT/HCPCS: 99284; 96374; 96375; 96376; 96361; 36415; 80053; 82150; 83690; 85025; 81001; 81025; J2270; J2405

== ENCOUNTER 2018-02-15 00:15 | Emergency (ER) | payer OTHER ==
[2018-02-15 00:29] VITALS: RESP 18
[2018-02-15] MEDS ORDERED: SODIUM CHLORIDE 0.9% 1,000 ML IV STA (00:55)
[2018-02-15] MEDS ORDERED: ONDANSETRON 4 MG/2 ML VIAL IVP STA (00:55)
[2018-02-15] MEDS ORDERED: MORPHINE SULFATE 2 MG/ML SYRINGE IV STA (00:55)
[2018-02-15 01:48] LABS: Appearance,Urine Cloudy (Clear); Bacteria,Urine Rare /hpf; Bilirubin,Urine Negative (Negative); Blood,Urine Moderate (Negative); Color,Urine Yellow; Glucose,Urine (UA) Negative (Negative); Ketones,Urine Negative (Negative); Leukocyte Esterase,Urine Negative (Negative); Mucus,Urine Rare /hpf; Nitrite,Urine Negative (Negative); PH, Urine 5.5 (5.0-8.0); Protein,Urine Trace (Negative); RBC,Urine 2 /hpf (0-5); Specific Gravity,Urine 1.023 (1.001-1.035); Squamous Epithelial Cell,Urine 8 /hpf (0-4); Urobilinogen,Urine <2.0 mg/dL (<2.0); WBC,Urine 6 /hpf (0-5)
[2018-02-15 01:53] LABS: Basophils % (A) 0 %; Eosinophils # (A) 0.5 k/uL (0-0.7); Eosinophils % (A) 3 %; HCT 39.7 % (34.0-46.0); HGB 12.8 gm/dL (11.4-16.0); Lymphocytes # (A) 3.2 k/uL (1.0-4.8); Lymphocytes % (A) 24 %; MCH 28.1 pg (25.0-35.0); MCHC 32.3 g/dL (31.0-37.0); MCV 87.1 fL (80.0-100.0); Mean Platelet Volume 6.7; Monocytes # (A) 0.5 k/uL (0-1.0); Monocytes % (A) 4 %; Neutrophils # (A) 9.4 k/uL (1.3-7.7); Neutrophils % (A) 68 %; Platelet Count 413 k/uL (150-450); RBC 4.56 m/uL (3.80-5.40); RDW 13.7 % (11.5-15.5); WBC 13.7 k/uL (3.8-10.6)
[2018-02-15 02:26] LABS: ALT 109 U/L (9-52); AST 76 U/L (14-36); Albumin 4.1 g/dL (3.5-5.0); Alkaline Phosphatase 83 U/L (38-126); Amylase 49 U/L (30-110); Anion Gap 15 mmol/L; Blood Urea Nitrogen 9 mg/dL (7-17); Calcium 10.2 mg/dL (8.4-10.2); Carbon Dioxide 23 mmol/L (22-30); Chloride 102 mmol/L (98-107); Glucose 101 mg/dL (74-99); Lipase 75 U/L (23-300); Potassium 4.3 mmol/L (3.5-5.1); Sodium 140 mmol/L (137-145); Total Bilirubin 0.3 mg/dL (0.2-1.3); Total Protein 7.7 g/dL (6.3-8.2)
[2018-02-15 02:40] VITALS: BP 133/81; PULSE 86; TEMP 97.4
--- NOTE | 2018-02-15 02:47 | ED ---
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 Patient states that she has also been vomiting has had decreased urine output related to this. She is also complaining of bilateral flank pain. Patient is seen in the emergency department quite frequently for similar complaints. Patient states that she did to follow-up with her GI specialist recently and was referred to [facility] for more advanced management of her condition. Patient states that she has been having low-grade fevers which is not unusual for her. States that she is having frequent soft stools which is also common. Patient states that she has taken her home pain medication without symptom relief. Patient denies any recent rash, shortness breath, chest pain, numbness, tingling, dizziness, weakness, hematuria, dysuria, urinary urgency, urinary frequency, headache, visual changes, or any other complaints. - Related Data Home Medications Medication Instructions Recorded Confirmed Albuterol Inhaler [Ventolin Hfa 2 puff INHALATION RT-Q6H PRN 08/27/15 02/05/18 Inhaler] [place] Carbonate 900 mg PO HS 08/27/15 02/05/18 Omeprazole [PriLOSEC] 20 mg PO BID 08/27/15 02/05/18 Levothyroxine Sodium [Synthroid] 125 mcg PO QAM 01/06/17 02/05/18 FLUoxetine HCL [PROzac] 40 mg PO QAM 01/23/17 02/05/18 Ergocalciferol [Vitamin D2 50,000 unit PO BELL 02/13/17 02/05/18 (DRISDOL)] Montelukast [Singulair] 10 mg PO HS 05/21/17 02/05/18 cloNIDine HCL [Catapres] 0.2 mg PO HS 05/21/17 02/05/18 Potassium Chloride [K-Tab ER] 10 meq PO DAILY 09/14/17 02/05/18 metFORMIN HCL ER [Glucophage Xr] 500 mg PO HS 11/20/17 02/05/18 Imipramine HCl [Tofranil] 50 mg PO DAILY 01/10/18 02/05/18 Famotidine [Pepcid] 20 mg PO BID 02/04/18 02/05/18 Loratadine [Claritin] 10 mg PO DAILY 02/04/18 02/05/18 Norgestimate-Ethinyl Estradiol 1 tab PO DAILY 02/04/18 02/05/18 [Sprintec 28 Day Tablet] clonazePAM [KlonoPIN] 0.5 mg PO HS 02/04/18 02/05/18 Previous Rx's Medication Instructions Recorded Metoclopramide [Reglan] 10 mg PO Q8H PRN #10 tab 02/06/18 Allergies Allergy/AdvReac Type Severity Reaction Status Date / Time fentanyl Allergy Rash/Hives Verified 02/15/18 00:29 grape Allergy Anaphylaxis Verified 02/15/18 00:29 latex Allergy Rash/Hives Verified 02/15/18 00:29 Penicillins Allergy Anaphylaxis Verified 02/15/18 00:29 ibuprofen [From Motrin] AdvReac GI Bleed Verified 02/15/18 00:29 prazosin AdvReac Nausea & Verified 02/15/18 00:29 Vomiting Seafood Allergy Anaphylaxis Uncoded 02/15/18 00:29 Review of Systems ROS Statement: Those systems with pertinent positive or pertinent negative responses have been documented in the HPI. ROS Other: All systems not noted in ROS Statement are negative. Past Medical History Past Medical History: Asthma, Chest Pain / Angina, Diabetes Mellitus, Fibromyalgia, GERD/Reflux, Liver Disease, Thyroid Disorder Additional Past Medical History / Comment(s): Hepatitis, Cirrhosis of the liver. Esophagalitis. Migraines. IBS. PART OF STOMACH NON-FUNCTIONING. BLOOD IN STOOL, VOMITING DAILY. History of Any Multi-Drug Resistant Organisms: None Reported Past Surgical History: Appendectomy, Cholecystectomy, Tonsillectomy Additional Past Surgical History / Comment(s): NASAL Septum repair. COLONOSCOPY. Past Anesthesia/Blood Transfusion Reactions: Motion Sickness Past Psychological History: Anxiety, Depression, PTSD Smoking Status: Never smoker Past Alcohol Use History: None Reported Past Drug Use History: None Reported - Past Family History Mother Family Medical History: No Reported History Father Family Medical History: Liver Disease Additional Family Medical History / Comment(s): cirrhosis, esophagus disease General Exam Limitations: no limitations General appearance: alert, in no apparent distress, other (This is a well- developed, well-nourished adult female patient in mild distress related to pain. Vital signs upon presentation are temperature 100.3F, pulse 115, respirations 18, blood pressure 125/76, pulse ox 98% on room air.) Eye exam: Present: normal appearance, PERRL, EOMI. Absent: scleral icterus, conjunctival injection, periorbital swelling ENT exam: Present: normal exam, normal oropharynx, mucous membranes moist Respiratory exam: Present: normal lung sounds bilaterally. Absent: respiratory distress, wheezes, rales, rhonchi, stridor Cardiovascular Exam: Present: regular rate, normal rhythm, normal heart sounds. Absent: systolic murmur, diastolic murmur, rubs, gallop, clicks GI/Abdominal exam: Present: soft, tenderness (Right upper quadrant tenderness), normal bowel sounds. Absent: distended, guarding, rebound, rigid Neurological exam: Present: alert, oriented X3, CN II-XII intact Psychiatric exam: Present: normal affect, normal mood Skin exam: Present: warm, dry, intact, normal color. Absent: rash Course Vital Signs 02/15/18 02/15/18 00:24 02:39 Temperature 100.3 F H 97.4 F L Pulse Rate 115 H 86 Respiratory 18 18 Rate Blood Pressure 125/76 133/81 O2 Sat by Pulse 98 99 Oximetry Medical Decision Making - Medical Decision Making 22-year-old female patient presents to the emergency department today for evaluation of right upper quadrant abdominal pain. Physical examination does reveal right upper quadrant tenderness. White blood cells of 13.7, AST is 76, AST is 109, urinalysis showed a cloudy appearance with trace urine protein, moderate blood, 6 white blood cells, 8 squamous epithelial cells, rare bacteria , and rare mucous. Labs are unremarkable and changes seem chronic for the patient. Patient is feeling improved after receiving IV fluids and morphine. Patient does have an appointment with her primary care physician on Saturday, she is urged to keep this appointment. She is urged to call [facility] see if she can obtain a sooner appointment. Return parameters discussed in detail. She verbalizes understanding and agrees with this plan. - Lab Data Result diagrams: 02/15/18 01:41 02/15/18 01:41 Lab Results 06/02/18 06/02/18 06/02/18 Range/Units 01:15 01:15 01:41 WBC (3.8-10.6) k/uL RBC (3.80-5.40) m/uL Hgb (11.4-16.0) gm/dL Hct (34.0-46.0) % MCV (80.0-100.0) fL MCH (25.0-35.0) pg MCHC (31.0-37.0) g/dL RDW (11.5-15.5) % Plt Count (150-450) k/uL Neutrophils % % Lymphocytes % % Monocytes % % Eosinophils % % Basophils % % Neutrophils # (1.3-7.7) k/uL Lymphocytes # (1.0-4.8) k/uL Monocytes # (0-1.0) k/uL Eosinophils # (0-0.7) k/uL Basophils # (0-0.2) k/uL Sodium 140 (137-145) mmol/L Potassium 4.3 (3.5-5.1) mmol/L Chloride 102 (98-107) mmol/L Carbon Dioxide 23 (22-30) mmol/L Anion Gap 15 mmol/L BUN 9 (7-17) mg/dL Creatinine 0.70 (0.52-1.04) mg/dL Est GFR (CKD-EPI)AfAm >90 (>60 ml/min/1.73 sqM) Est GFR (CKD-EPI)NonAf >90 (>60 ml/min/1.73 sqM) Glucose 101 H (74-99) mg/dL Plasma Lactic Acid [place] (0.7-2.0) mmol/L Calcium 10.2 (8.4-10.2) mg/dL Total Bilirubin 0.3 (0.2-1.3) mg/dL AST 76 H (14-36) U/L ALT 109 H (9-52) U/L Alkaline Phosphatase 83 (38-126) U/L Total Protein 7.7 (6.3-8.2) g/dL Albumin 4.1 (3.5-5.0) g/dL Amylase 49 (30-110) U/L Lipase 75 (23-300) U/L Urine Color Yellow Urine Appearance Cloudy H (Clear) Urine pH 5.5 (5.0-8.0) Ur Specific [place] 1.023 (1.001-1.035) Urine Protein Trace H (Negative) Urine Glucose (UA) Negative (Negative) Urine Ketones Negative (Negative) Urine Blood Moderate H (Negative) Urine Nitrite Negative (Negative) Urine Bilirubin Negative (Negative) Urine Urobilinogen <2.0 (<2.0) mg/dL Ur Leukocyte Esterase Negative (Negative) Urine RBC 2 (0-5) /hpf Urine WBC 6 H (0-5) /hpf Ur Squamous Epith Cells 8 H (0-4) /hpf Urine Bacteria Rare H (None) /hpf Urine Mucus Rare H (None) /hpf Urine HCG, Qual Not Detected (Not Detectd) 02/15/18 02/15/18 Range/Units 01:41 01:41 WBC 13.7 H (3.8-10.6) k/uL RBC 4.56 (3.80-5.40) m/uL Hgb 12.8 (11.4-16.0) gm/dL Hct 39.7 (34.0-46.0) % MCV 87.1 (80.0-100.0) fL MCH 28.1 (25.0-35.0) pg MCHC 32.3 (31.0-37.0) g/dL RDW 13.7 (11.5-15.5) % Plt Count 413 (150-450) k/uL Neutrophils % 68 % Lymphocytes % 24 % Monocytes % 4 % Eosinophils % 3 % Basophils % 0 % Neutrophils # 9.4 H (1.3-7.7) k/uL Lymphocytes # 3.2 (1.0-4.8) k/uL Monocytes # 0.5 (0-1.0) k/uL Eosinophils # 0.5 (0-0.7) k/uL Basophils # 0.0 (0-0.2) k/uL Sodium (137-145) mmol/L Potassium (3.5-5.1) mmol/L Chloride (98-107) mmol/L Carbon Dioxide (22-30) mmol/L Anion Gap mmol/L BUN (7-17) mg/dL Creatinine (0.52-1.04) mg/dL Est GFR (CKD-EPI)AfAm (>60 ml/min/1.73 sqM) Est GFR (CKD-EPI)NonAf (>60 ml/min/1.73 sqM) Glucose (74-99) mg/dL Plasma Lactic Acid [place] 1.3 (0.7-2.0) mmol/L Calcium (8.4-10.2) mg/dL Total Bilirubin (0.2-1.3) mg/dL AST (14-36) U/L ALT (9-52) U/L Alkaline Phosphatase (38-126) U/L Total Protein (6.3-8.2) g/dL Albumin (3.5-5.0) g/dL Amylase (30-110) U/L Lipase (23-300) U/L Urine Color Urine Appearance (Clear) Urine pH (5.0-8.0) Ur Specific [place] (1.001-1.035) Urine Protein (Negative) Urine Glucose (UA) (Negative) Urine Ketones (Negative) Urine Blood (Negative) Urine Nitrite (Negative) Urine Bilirubin (Negative) Urine Urobilinogen (<2.0) mg/dL Ur Leukocyte Esterase (Negative) Urine RBC (0-5) /hpf Urine WBC (0-5) /hpf Ur Squamous Epith Cells (0-4) /hpf Urine Bacteria (None) /hpf Urine Mucus (None) /hpf Urine HCG, Qual (Not Detectd) Disposition Clinical Impression: Chronic abdominal pain Disposition: HOME SELF-CARE Condition: Good Instructions: Abdominal Pain (ED) Additional Instructions: Take home medications as directed. Follow up with your primary care physician as you have planned on Saturday. Return here immediately for any new, worsening, or concerning symptoms. Is patient prescribed a controlled substance at d/c from ED?: No Referrals: Marysol Rose DO [Primary Care Provider] - 1-2 days Time of Disposition: 02:56
== END 2018-02-15 03:02 | disposition home or self-care (01) ==
LOC: EC 00:15
DX: R10.11 Right upper quadrant pain (principal); R11.10 Vomiting, unspecified; R50.9 Fever, unspecified; J45.909 Unspecified asthma, uncomplicated; E11.9 Type 2 diabetes mellitus without complications; K21.9 Gastro-esophageal reflux disease without esophagitis; K58.9 Irritable bowel syndrome, unspecified; E07.9 Disorder of thyroid, unspecified; F32.9 Major depressive disorder, single episode, unspecified; F41.9 Anxiety disorder, unspecified; F43.10 Post-traumatic stress disorder, unspecified; Z87.19 Personal history of other diseases of the digestive system; Z86.19 Personal history of other infectious and parasitic diseases; Z79.3 Long term (current) use of hormonal contraceptives; Z79.84 Long term (current) use of oral hypoglycemic drugs; Z79.899 Other long term (current) drug therapy; Z88.0 Allergy status to penicillin; Z88.5 Allergy status to narcotic agent; Z91.013 Allergy to seafood; Z91.040 Latex allergy status; Z88.6 Allergy status to analgesic agent; Z91.018 Allergy to other foods; Z88.8 Allergy status to other drugs, medicaments and biological substances
CPT/HCPCS: 99284; 96374; 96375; 96361; 36415; 80053; 82150; 83605; 83690; 85025; 81001; 81025; 87040; J2405; J2270

== ENCOUNTER 2018-02-23 18:35 | Emergency (ER) | payer OTHER ==
[2018-02-23 19:05] VITALS: RESP 18
[2018-02-23] MEDS ORDERED: MORPHINE SULFATE 2 MG/ML SYRINGE IVP STA (19:29)
[2018-02-23] MEDS ORDERED: SODIUM CHLORIDE 0.9% 1,000 ML IV STA (19:29)
[2018-02-23] MEDS ORDERED: HYDROcodone/APAP 5-325MG 1 EACH TAB PO STA (19:33)
--- NOTE | 2018-02-23 19:34 | ED ---
Psych HPI - General Chief Complaint: Psychiatric Symptoms Stated Complaint: Mental Health Time Seen by Provider: 02/23/18 19:05 Source: patient, RN notes reviewed Mode of arrival: wheelchair Limitations: no limitations - History of Present Illness Initial Comments: This is a 22-year-old female who presents to the emergency department with chief complaint of suicidal ideation. Patient states she has a history of cirrhosis and hepatitis. She states that she deals with chronic "liver pain." She states that her symptoms have not worsened but that she is having a difficult time dealing with the pain. She admits to suicidal ideation but denies homicidal ideation. She denies auditory or visual hallucinations. She denies alcohol or drug use. She admits to chronic diarrhea, nausea and vomiting. Denies fevers or chills, chest pain or shortness of breath. - Related Data Home Medications Medication Instructions Recorded Confirmed Albuterol Inhaler [Ventolin Hfa 2 puff INHALATION RT-Q6H PRN 08/27/15 02/05/18 Inhaler] [place] Carbonate 900 mg PO HS 08/27/15 02/05/18 Omeprazole [PriLOSEC] 20 mg PO BID 08/27/15 02/05/18 Levothyroxine Sodium [Synthroid] 125 mcg PO QAM 01/06/17 02/05/18 FLUoxetine HCL [PROzac] 40 mg PO QAM 01/23/17 02/05/18 Ergocalciferol [Vitamin D2 50,000 unit PO BELL 02/13/17 02/05/18 (DRISDOL)] Montelukast [Singulair] 10 mg PO HS 05/21/17 02/05/18 cloNIDine HCL [Catapres] 0.2 mg PO HS 05/21/17 02/05/18 Potassium Chloride [K-Tab ER] 10 meq PO DAILY 09/14/17 02/05/18 metFORMIN HCL ER [Glucophage Xr] 500 mg PO HS 11/20/17 02/05/18 Imipramine HCl [Tofranil] 50 mg PO DAILY 01/10/18 02/05/18 Famotidine [Pepcid] 20 mg PO BID 02/04/18 02/05/18 Loratadine [Claritin] 10 mg PO DAILY 02/04/18 02/05/18 Norgestimate-Ethinyl Estradiol 1 tab PO DAILY 02/04/18 02/05/18 [Sprintec 28 Day Tablet] clonazePAM [KlonoPIN] 0.5 mg PO HS 02/04/18 02/05/18 Previous Rx's Medication Instructions Recorded Metoclopramide [Reglan] 10 mg PO Q8H PRN #10 tab 02/06/18 Allergies Allergy/AdvReac Type Severity Reaction Status Date / Time fentanyl Allergy Rash/Hives Verified 02/23/18 19:05 grape Allergy Anaphylaxis Verified 02/23/18 19:05 latex Allergy Rash/Hives Verified 02/23/18 19:05 Penicillins Allergy Anaphylaxis Verified 02/23/18 19:05 ibuprofen [From Motrin] AdvReac GI Bleed Verified 02/23/18 19:05 prazosin AdvReac Nausea & Verified 02/23/18 19:05 Vomiting Seafood Allergy Anaphylaxis Uncoded 02/23/18 19:05 Review of Systems ROS Statement: Those systems with pertinent positive or pertinent negative responses have been documented in the HPI. ROS Other: All systems not noted in ROS Statement are negative. Past Medical History Past Medical History: Asthma, Chest Pain / Angina, Diabetes Mellitus, Fibromyalgia, GERD/Reflux, Liver Disease, Thyroid Disorder Additional Past Medical History / Comment(s): Hepatitis, Cirrhosis of the liver. Esophagalitis. Migraines. IBS. PART OF STOMACH NON-FUNCTIONING. BLOOD IN STOOL, VOMITING DAILY. History of Any Multi-Drug Resistant Organisms: None Reported Past Surgical History: Appendectomy, Cholecystectomy, Tonsillectomy Additional Past Surgical History / Comment(s): NASAL Septum repair. COLONOSCOPY. Past Anesthesia/Blood Transfusion Reactions: Motion Sickness Past Psychological History: Anxiety, Depression, PTSD Smoking Status: Never smoker Past Alcohol Use History: None Reported Past Drug Use History: None Reported - Past Family History Mother Family Medical History: No Reported History Father Family Medical History: Liver Disease Additional Family Medical History / Comment(s): cirrhosis, esophagus disease General Exam - General Exam Comments Initial Comments: General: Awake and alert, well-developed; in no apparent distress. Lying on ED stretcher with mother at bedside. HEENT: Head atraumatic, normocephalic. Pupils are equal, round and reactive to light. Extraocular movements intact. Oropharynx moist without erythema or exudate. Neck: Supple. Normal ROM. Cardiovascular: Regular rate and rhythm. No murmurs, rubs or gallops. Chest symmetrical. Respiratory: Lungs clear to auscultation bilaterally. No wheezes, rales or rhonchi. Normal respiratory effort with no use of accessory muscles. Abdomen: Soft, nondistended. Tenderness on palpation of right upper quadrant. Patient states this is chronic. No rigidity, rebound or guarding. Normal bowel sounds in all 4 quadrants. Musculoskeletal: Normal ROM, no tenderness bilateral upper and lower extremities. Ambulating normally. Skin: [place], warm and dry without rashes or lesions. Neurological: Alert and oriented x3. CN II-XII grossly intact. Speech is fluent and answers are appropriate. No focal neuro deficits. Psychiatric: Patient appears melancholic. Speaking very softly. Limitations: no limitations Course Vital Signs 02/23/18 19:02 Temperature 98.2 F Pulse Rate 113 H Respiratory 18 Rate Blood Pressure 119/80 O2 Sat by Pulse 97 Oximetry Medical Decision Making - Medical Decision Making This is a 22-year-old female who presented to the emergency department with chief complaint of suicidal ideation. Patient states that she is having a difficult time dealing with her chronic pain. She reports history of liver cirrhosis and hepatitis. Patient was evaluated by EPS. They're recommending discharge home with follow-up to [facility] tomorrow with Dr. Rose. Patient denies any current suicidal or homicidal ideation. Vital signs are stable and she is in no acute distress. She'll be discharged home at this time. All questions answered. Disposition Clinical Impression: Depression, Chronic pain Disposition: HOME SELF-CARE Condition: Good Instructions: Chronic Pain (ED), Depression (ED) Additional Instructions: Please follow up with [facility] tomorrow as discussed. Please follow up with primary care provider within 1-2 days. Return to emergency department if symptoms should worsen or any concerns arise. Is patient prescribed a controlled substance at d/c from ED?: No Referrals: Marysol Rose DO [Primary Care Provider] - 1-2 days Time of Disposition: 21:14
[2018-02-23] MEDS ORDERED: ONDANSETRON ODT 4 MG TAB PO STA (20:49)
[2018-02-23 21:22] VITALS: BP 130/70; PULSE 90; TEMP 98
== END 2018-02-23 21:22 | disposition home or self-care (01) ==
LOC: EC 18:35
DX: F32.9 Major depressive disorder, single episode, unspecified (principal); G89.29 Other chronic pain; K76.89 Other specified diseases of liver; K52.9 Noninfective gastroenteritis and colitis, unspecified; R45.851 Suicidal ideations; R11.2 Nausea with vomiting, unspecified; J45.909 Unspecified asthma, uncomplicated; E11.9 Type 2 diabetes mellitus without complications; K21.9 Gastro-esophageal reflux disease without esophagitis; E07.9 Disorder of thyroid, unspecified; F41.9 Anxiety disorder, unspecified; Z79.3 Long term (current) use of hormonal contraceptives; Z79.84 Long term (current) use of oral hypoglycemic drugs; Z79.899 Other long term (current) drug therapy; Z88.0 Allergy status to penicillin; Z88.5 Allergy status to narcotic agent; Z88.6 Allergy status to analgesic agent; Z88.8 Allergy status to other drugs, medicaments and biological substances; Z91.013 Allergy to seafood; Z91.018 Allergy to other foods; Z91.040 Latex allergy status; Z90.49 Acquired absence of other specified parts of digestive tract; Z83.79 Family history of other diseases of the digestive system; Z53.8 Procedure and treatment not carried out for other reasons
CPT/HCPCS: 82075; 99284

== ENCOUNTER 2018-02-26 23:22 | Emergency (ER) | payer OTHER ==
[2018-02-27] MEDS ORDERED: ONDANSETRON 4 MG/2 ML VIAL IVP STA (00:25)
[2018-02-27] MEDS ORDERED: MORPHINE SULFATE 2 MG/ML SYRINGE IV STA ×2 (00:25→01:52)
[2018-02-27] MEDS ORDERED: SODIUM CHLORIDE 0.9% 1,000 ML IV ONE (00:25)
--- NOTE | 2018-02-27 00:31 | ED ---
Abdominal Pain HPI - General Chief Complaint: Abdominal Pain Stated Complaint: Headache,nausea Time Seen by Provider: 02/26/18 23:45 Source: patient Mode of arrival: ambulatory Limitations: no limitations - History of Present Illness MD Complaint: abdominal pain Onset/Timin -: hour(s) Location: RUQ Radiation: none Migration to: no migration Severity: severe Quality: aching Consistency: constant Improves With: nothing Worsens With: nothing Associated Symptoms: nausea - Related Data Home Medications Medication Instructions Recorded Confirmed Albuterol Inhaler [Ventolin Hfa 2 puff INHALATION RT-Q6H PRN 08/27/15 02/05/18 Inhaler] [place] Carbonate 900 mg PO HS 08/27/15 02/05/18 Omeprazole [PriLOSEC] 20 mg PO BID 08/27/15 02/05/18 Levothyroxine Sodium [Synthroid] 125 mcg PO QAM 01/06/17 02/05/18 FLUoxetine HCL [PROzac] 40 mg PO QAM 01/23/17 02/05/18 Ergocalciferol [Vitamin D2 50,000 unit PO BELL 02/13/17 02/05/18 (DRISDOL)] Montelukast [Singulair] 10 mg PO HS 05/21/17 02/05/18 cloNIDine HCL [Catapres] 0.2 mg PO HS 05/21/17 02/05/18 Potassium Chloride [K-Tab ER] 10 meq PO DAILY 09/14/17 02/05/18 metFORMIN HCL ER [Glucophage Xr] 500 mg PO HS 11/20/17 02/05/18 Imipramine HCl [Tofranil] 50 mg PO DAILY 01/10/18 02/05/18 Famotidine [Pepcid] 20 mg PO BID 02/04/18 02/05/18 Loratadine [Claritin] 10 mg PO DAILY 02/04/18 02/05/18 Norgestimate-Ethinyl Estradiol 1 tab PO DAILY 02/04/18 02/05/18 [Sprintec 28 Day Tablet] clonazePAM [KlonoPIN] 0.5 mg PO HS 02/04/18 02/05/18 Pioglitazone [Actos] 25 mg PO DAILY 02/26/18 02/26/18 Previous Rx's Medication Instructions Recorded Metoclopramide [Reglan] 10 mg PO Q8H PRN #10 tab 02/06/18 Allergies Allergy/AdvReac Type Severity Reaction Status Date / Time fentanyl Allergy Rash/Hives Verified 02/23/18 19:05 grape Allergy Anaphylaxis Verified 02/23/18 19:05 latex Allergy Rash/Hives Verified 02/23/18 19:05 Penicillins Allergy Anaphylaxis Verified 02/23/18 19:05 ibuprofen [From Motrin] AdvReac GI Bleed Verified 02/23/18 19:05 prazosin AdvReac Nausea & Verified 02/23/18 19:05 Vomiting Seafood Allergy Anaphylaxis Uncoded 02/23/18 19:05 Review of Systems ROS Statement: Those systems with pertinent positive or pertinent negative responses have been documented in the HPI. ROS Other: All systems not noted in ROS Statement are negative. Constitutional: Denies: fever, chills, weakness Respiratory: Denies: cough, dyspnea Cardiovascular: Denies: chest pain, palpitations, orthopnea Gastrointestinal: Reports: as per HPI, abdominal pain, nausea. Denies: vomiting , diarrhea, melena, hematochezia Genitourinary: Denies: dysuria, hematuria Musculoskeletal: Denies: back pain Skin: Denies: rash Neurological: Reports: headache. Denies: weakness, numbness, paresthesias Past Medical History Past Medical History: Asthma, Chest Pain / Angina, Diabetes Mellitus, Fibromyalgia, GERD/Reflux, Liver Disease, Thyroid Disorder Additional Past Medical History / Comment(s): Hepatitis, Cirrhosis of the liver. Esophagalitis. Migraines. IBS. PART OF STOMACH NON-FUNCTIONING. BLOOD IN STOOL, VOMITING DAILY. History of Any Multi-Drug Resistant Organisms: None Reported Past Surgical History: Appendectomy, Cholecystectomy, Tonsillectomy Additional Past Surgical History / Comment(s): NASAL Septum repair. COLONOSCOPY. Past Anesthesia/Blood Transfusion Reactions: Motion Sickness Past Psychological History: Anxiety, Depression, PTSD Smoking Status: Never smoker Past Alcohol Use History: None Reported Past Drug Use History: None Reported - Past Family History Mother Family Medical History: No Reported History Father Family Medical History: Liver Disease Additional Family Medical History / Comment(s): cirrhosis, esophagus disease General Exam Limitations: no limitations General appearance: alert, in no apparent distress, obese Head exam: Present: atraumatic, normocephalic Eye exam: Present: normal appearance, PERRL, EOMI. Absent: scleral icterus, conjunctival injection, nystagmus ENT exam: Present: mucous membranes dry Respiratory exam: Present: normal lung sounds bilaterally. Absent: respiratory distress, wheezes, rales, rhonchi, stridor Cardiovascular Exam: Present: regular rate, normal rhythm, normal heart sounds. Absent: systolic murmur, diastolic murmur, rubs, gallop GI/Abdominal exam: Present: soft, tenderness. Absent: distended, guarding, rebound, rigid, mass, pulsatile mass, hernia Extremities exam: Present: normal inspection, normal capillary refill. Absent: pedal edema, calf tenderness Back exam: Present: normal inspection. Absent: CVA tenderness (R), CVA tenderness (L) Neurological exam: Present: alert Skin exam: Present: warm, dry, intact, normal color. Absent: rash Course Vital Signs 02/26/18 23:39 Temperature 98.4 F Pulse Rate 109 H Respiratory 20 Rate Blood Pressure 150/98 O2 Sat by Pulse 97 Oximetry Medical Decision Making - Lab Data Result diagrams: 02/27/18 01:00 02/27/18 01:00 Lab Results 02/27/18 02/27/18 02/27/18 Range/Units 01:00 01:00 01:14 WBC 12.7 H (3.8-10.6) k/uL RBC 4.44 (3.80-5.40) m/uL Hgb 12.4 (11.4-16.0) gm/dL Hct 38.8 (34.0-46.0) % MCV 87.4 (80.0-100.0) fL MCH 27.8 (25.0-35.0) pg MCHC 31.8 (31.0-37.0) g/dL RDW 13.4 (11.5-15.5) % Plt Count 390 (150-450) k/uL Neutrophils % 69 % Lymphocytes % 23 % Monocytes % 4 % Eosinophils % 3 % Basophils % 0 % Neutrophils # 8.8 H (1.3-7.7) k/uL Lymphocytes # 2.9 (1.0-4.8) k/uL Monocytes # 0.5 (0-1.0) k/uL Eosinophils # 0.3 (0-0.7) k/uL Basophils # 0.0 (0-0.2) k/uL Sodium 140 (137-145) mmol/L Potassium 4.2 (3.5-5.1) mmol/L Chloride 102 (98-107) mmol/L Carbon Dioxide 25 (22-30) mmol/L Anion Gap 13 mmol/L BUN 10 (7-17) mg/dL Creatinine 0.80 (0.52-1.04) mg/dL Est GFR (CKD-EPI)AfAm >90 (>60 ml/min/1.73 sqM) Est GFR (CKD-EPI)NonAf >90 (>60 ml/min/1.73 sqM) Glucose 88 (74-99) mg/dL Calcium 9.8 (8.4-10.2) mg/dL Total Bilirubin 0.2 (0.2-1.3) mg/dL AST 77 H (14-36) U/L ALT 101 H (9-52) U/L Alkaline Phosphatase 76 (38-126) U/L Total Protein 7.2 (6.3-8.2) g/dL Albumin 4.0 (3.5-5.0) g/dL Amylase 43 (30-110) U/L Lipase 56 (23-300) U/L Urine Color Yellow Urine Appearance Cloudy H (Clear) Urine pH 5.5 (5.0-8.0) Ur Specific [place] 1.018 (1.001-1.035) Urine Protein Negative (Negative) Urine Glucose (UA) Negative (Negative) Urine Ketones Negative (Negative) Urine Blood Negative (Negative) Urine Nitrite Negative (Negative) Urine Bilirubin Negative (Negative) Urine Urobilinogen <2.0 (<2.0) mg/dL Ur Leukocyte Esterase Negative (Negative) Urine RBC 1 (0-5) /hpf Urine WBC 2 (0-5) /hpf Ur Squamous Epith Cells 8 H (0-4) /hpf Urine Bacteria Rare H (None) /hpf Urine Mucus Rare H (None) /hpf Disposition Clinical Impression: Abdominal pain Disposition: HOME SELF-CARE Condition: Fair Instructions: Abdominal Pain (ED) Is patient prescribed a controlled substance at d/c from ED?: No Referrals: Marysol Rose DO [Primary Care Provider] - 1-2 days
[2018-02-27 01:18] LABS: Basophils % (A) 0 %; Eosinophils # (A) 0.3 k/uL (0-0.7); Eosinophils % (A) 3 %; HCT 38.8 % (34.0-46.0); HGB 12.4 gm/dL (11.4-16.0); Lymphocytes # (A) 2.9 k/uL (1.0-4.8); Lymphocytes % (A) 23 %; MCH 27.8 pg (25.0-35.0); MCHC 31.8 g/dL (31.0-37.0); MCV 87.4 fL (80.0-100.0); Mean Platelet Volume 6.6; Monocytes # (A) 0.5 k/uL (0-1.0); Monocytes % (A) 4 %; Neutrophils # (A) 8.8 k/uL (1.3-7.7); Neutrophils % (A) 69 %; Platelet Count 390 k/uL (150-450); RBC 4.44 m/uL (3.80-5.40); RDW 13.4 % (11.5-15.5); WBC 12.7 k/uL (3.8-10.6)
[2018-02-27 01:32] LABS: ALT 101 U/L (9-52); AST 77 U/L (14-36); Alkaline Phosphatase 76 U/L (38-126); Amylase 43 U/L (30-110); Anion Gap 13 mmol/L; Calcium 9.8 mg/dL (8.4-10.2); Carbon Dioxide 25 mmol/L (22-30); Chloride 102 mmol/L (98-107); Glucose 88 mg/dL (74-99); Lipase 56 U/L (23-300); Potassium 4.2 mmol/L (3.5-5.1); Sodium 140 mmol/L (137-145); Total Bilirubin 0.2 mg/dL (0.2-1.3); Total Protein 7.2 g/dL (6.3-8.2)
[2018-02-27 01:34] LABS: Blood Urea Nitrogen 10 mg/dL (7-17)
[2018-02-27 01:36] LABS: Appearance,Urine Cloudy (Clear); Bacteria,Urine Rare /hpf; Bilirubin,Urine Negative (Negative); Blood,Urine Negative (Negative); Color,Urine Yellow; Glucose,Urine (UA) Negative (Negative); Ketones,Urine Negative (Negative); Leukocyte Esterase,Urine Negative (Negative); Mucus,Urine Rare /hpf; Nitrite,Urine Negative (Negative); PH, Urine 5.5 (5.0-8.0); Protein,Urine Negative (Negative); RBC,Urine 1 /hpf (0-5); Specific Gravity,Urine 1.018 (1.001-1.035); Squamous Epithelial Cell,Urine 8 /hpf (0-4); Urobilinogen,Urine <2.0 mg/dL (<2.0); WBC,Urine 2 /hpf (0-5)
[2018-02-27 02:08] VITALS: BP 132/82; PULSE 96; RESP 18; TEMP 97.8
== END 2018-02-27 02:08 | disposition home or self-care (01) ==
LOC: EC 23:22
DX: R10.11 Right upper quadrant pain (principal); R11.0 Nausea; E11.9 Type 2 diabetes mellitus without complications; K21.9 Gastro-esophageal reflux disease without esophagitis; E07.9 Disorder of thyroid, unspecified; F32.9 Major depressive disorder, single episode, unspecified; F41.9 Anxiety disorder, unspecified; J45.909 Unspecified asthma, uncomplicated; Z90.49 Acquired absence of other specified parts of digestive tract; Z88.0 Allergy status to penicillin; Z88.5 Allergy status to narcotic agent; Z88.6 Allergy status to analgesic agent; Z88.8 Allergy status to other drugs, medicaments and biological substances; Z91.013 Allergy to seafood; Z91.018 Allergy to other foods; Z91.040 Latex allergy status; Z79.3 Long term (current) use of hormonal contraceptives; Z79.84 Long term (current) use of oral hypoglycemic drugs; Z79.899 Other long term (current) drug therapy
CPT/HCPCS: 99284; 96374; 96375; 96376; 96361; 36415; 80053; 82150; 83690; 85025; 81001; J2405; J2270

== ENCOUNTER 2018-03-15 16:35 | Emergency (ER) | payer OTHER ==
[2018-03-15 16:47] VITALS: RESP 18
[2018-03-15] MEDS ORDERED: KETOROLAC 30 MG/ML 1 ML VIAL IVP STA (17:05)
[2018-03-15] MEDS ORDERED: SODIUM CHLORIDE 0.9% 1,000 ML IV STA (17:05)
[2018-03-15] MEDS ORDERED: MORPHINE SULFATE 2 MG/ML SYRINGE IV STA (17:05)
--- NOTE | 2018-03-15 17:13 | ED ---
General Adult HPI - General Chief complaint: Recheck/Abnormal Lab/Rx Stated complaint: Pain All Over Time Seen by Provider: 03/15/18 16:52 Source: patient Mode of arrival: ambulatory Limitations: no limitations - History of Present Illness Initial comments: Patient is a 22-year-old female without significant past medical history of liver disease, fibromyalgia, diabetes, hepatitis, cirrhosis they comes in for worsening abdominal pain. She states that this right upper quadrant pain is been present for many years but is now worsening in intensity. Physical throbbing/stabbing sensation that has now become more diffuse and constant. It is associated with nausea, vomiting, diarrhea but she is unable to quantify. She also admits to fevers and chills but is again unable to give specifics. She also states that she has been on her period for the last 2 weeks and she had a pelvic ultrasound this week for possible evaluation of endometriosis. She denies any dysuria but states that there is some pressure when she urinates. - Related Data Home Medications Medication Instructions Recorded Confirmed Albuterol Inhaler [Ventolin Hfa 2 puff INHALATION RT-Q6H PRN 08/27/15 02/05/18 Inhaler] [place] Carbonate 900 mg PO HS 08/27/15 02/05/18 Omeprazole [PriLOSEC] 20 mg PO BID 08/27/15 02/05/18 Levothyroxine Sodium [Synthroid] 125 mcg PO QAM 01/06/17 02/05/18 FLUoxetine HCL [PROzac] 40 mg PO QAM 01/23/17 02/05/18 Ergocalciferol [Vitamin D2 50,000 unit PO BELL 02/13/17 02/05/18 (DRISDOL)] Montelukast [Singulair] 10 mg PO HS 05/21/17 02/05/18 cloNIDine HCL [Catapres] 0.2 mg PO HS 05/21/17 02/05/18 Potassium Chloride [K-Tab ER] 10 meq PO DAILY 09/14/17 02/05/18 metFORMIN HCL ER [Glucophage Xr] 500 mg PO HS 11/20/17 02/05/18 Imipramine HCl [Tofranil] 50 mg PO DAILY 01/10/18 02/05/18 Famotidine [Pepcid] 20 mg PO BID 02/04/18 02/05/18 Loratadine [Claritin] 10 mg PO DAILY 02/04/18 02/05/18 Norgestimate-Ethinyl Estradiol 1 tab PO DAILY 02/04/18 02/05/18 [Sprintec 28 Day Tablet] clonazePAM [KlonoPIN] 0.5 mg PO HS 02/04/18 02/05/18 Pioglitazone [Actos] 25 mg PO DAILY 02/26/18 02/26/18 Previous Rx's Medication Instructions Recorded Metoclopramide [Reglan] 10 mg PO Q8H PRN #10 tab 02/06/18 Allergies Allergy/AdvReac Type Severity Reaction Status Date / Time fentanyl Allergy Rash/Hives Verified 03/15/18 16:47 grape Allergy Anaphylaxis Verified 03/15/18 16:47 latex Allergy Rash/Hives Verified 03/15/18 16:47 Penicillins Allergy Anaphylaxis Verified 03/15/18 16:47 ibuprofen [From Motrin] AdvReac GI Bleed Verified 03/15/18 16:47 prazosin AdvReac Nausea & Verified 03/15/18 16:47 Vomiting Seafood Allergy Anaphylaxis Uncoded 03/15/18 16:47 Review of Systems ROS Statement: Those systems with pertinent positive or pertinent negative responses have been documented in the HPI. Constitutional: Positive for chills, fatigue and fever. HENT: Negative for congestion. Respiratory: Negative for chest tightness, shortness of breath and wheezing. Negative for cough Cardiovascular: Negative for chest pain and palpitations. Gastrointestinal: Positive for abdominal pain. Negative for abdominal distention , positive for diarrhea, nausea and vomiting. Genitourinary: Negative for dysuria. Positive for pressure with urination Musculoskeletal: Negative for back pain, neck pain and neck stiffness. Skin: Negative for color change. Neurological: Negative for dizziness, speech difficulty, weakness and light- headedness. Psychiatric/Behavioral: Negative for agitation and confusion. The patient is not nervous/anxious. ROS Other: All systems not noted in ROS Statement are negative. Past Medical History Past Medical History: Asthma, Chest Pain / Angina, Diabetes Mellitus, Fibromyalgia, GERD/Reflux, Liver Disease, Thyroid Disorder Additional Past Medical History / Comment(s): Hepatitis, Cirrhosis of the liver. Esophagalitis. Migraines. IBS. PART OF STOMACH NON-FUNCTIONING. BLOOD IN STOOL, VOMITING DAILY. History of Any Multi-Drug Resistant Organisms: None Reported Past Surgical History: Appendectomy, Cholecystectomy, Tonsillectomy Additional Past Surgical History / Comment(s): NASAL Septum repair. COLONOSCOPY. Past Anesthesia/Blood Transfusion Reactions: Motion Sickness Past Psychological History: Anxiety, Depression, PTSD Smoking Status: Never smoker Past Alcohol Use History: None Reported Past Drug Use History: None Reported - Past Family History Mother Family Medical History: No Reported History Father Family Medical History: Liver Disease Additional Family Medical History / Comment(s): cirrhosis, esophagus disease General Exam - General Exam Comments Initial Comments: Constitutional: Pt is oriented to person, place, and time. Pt appears well- developed and well-nourished. No distress. HENT: Head: Normocephalic and atraumatic. Eyes: EOM are normal. Neck: Normal range of motion. Neck supple. Cardiovascular: Normal rate, regular rhythm, S1 normal, S2 normal and normal heart sounds. Exam reveals no gallop and no friction rub. No murmur heard. Pulmonary/Chest: Effort normal and breath sounds normal. No tachypnea and no bradypnea. No respiratory distress. No wheezes or rales noted. Abdominal: Soft. Bowel sounds are normal. Pt exhibits no shifting dullness, no distension, no pulsatile liver, no fluid wave, no abdominal bruit and no ascites. There is no tenderness. There is no rigidity, no rebound, no guarding, no tenderness at McBurney's point and negative Chapa's sign. Musculoskeletal: Normal range of motion. Neurological: Pt is alert and oriented to person, place, and time. No cranial nerve deficit. Skin: Skin is warm and dry. No rash noted. Pt is not diaphoretic. No erythema. No pallor. Psychiatric: Pt has a normal mood and affect. Pt behavior is normal. Thought content normal. Limitations: no limitations Course Vital Signs 03/15/18 03/15/18 03/15/18 16:45 17:59 18:58 Temperature 98.8 F 98.3 F Pulse Rate 120 H 98 Respiratory 18 18 Rate Blood Pressure 131/82 121/73 O2 Sat by Pulse 97 98 Oximetry Medical Decision Making - Medical Decision Making Laboratory studies show that there is no significant leukocytosis and coagulation studies were also within normal limits. Electrolytes were relatively within normal limits as well urinalysis was negative for infection and . There was evidence of transaminitis with AST measured 132 and ALT 100. Extensive discussion was had with the patient on the mother regarding ultrasounds and CAT scans as the patient has had a significant number of the studies. Initially before labs were obtained, he was advised that because this is been a very chronic problem, imaging would probably not be warranted unless there is significant changes to labs. Patient and mother were agreeable to this and again discuss after results were obtained. It is agreed upon that based on laboratory studies, and did decreased magnitude of pain while in the emergency department, advanced imaging was not necessary and that the patient wanted to follow-up with [facility] to have a second opinion. Additionally, the patient was advised to follow-up within the next 1-2 days PCP which she was agreeable to. It Should also be noted that the patient's heart rate normalized shortly after being placed in a room and there was no evidence of tachycardia at the time of discharge. - Lab Data Result diagrams: 03/15/18 17:31 03/15/18 17:31 Lab Results 03/15/18 03/15/18 03/15/18 Range/Units 17:31 17:31 17:31 WBC 10.4 (3.8-10.6) k/uL RBC 4.45 (3.80-5.40) m/uL Hgb 12.4 (11.4-16.0) gm/dL Hct 38.6 (34.0-46.0) % MCV 86.7 (80.0-100.0) fL MCH 27.9 (25.0-35.0) pg MCHC 32.1 (31.0-37.0) g/dL RDW 13.4 (11.5-15.5) % Plt Count 347 (150-450) k/uL Neutrophils % 67 % Lymphocytes % 23 % Monocytes % 4 % Eosinophils % 4 % Basophils % 0 % Neutrophils # 7.0 (1.3-7.7) k/uL Lymphocytes # 2.4 (1.0-4.8) k/uL Monocytes # 0.5 (0-1.0) k/uL Eosinophils # 0.4 (0-0.7) k/uL Basophils # 0.0 (0-0.2) k/uL PT 9.3 (9.0-12.0) sec INR 0.9 (<1.2) APTT 22.8 (22.0-30.0) sec Sodium (137-145) mmol/L Potassium (3.5-5.1) mmol/L Chloride (98-107) mmol/L Carbon Dioxide (22-30) mmol/L Anion Gap mmol/L BUN (7-17) mg/dL Creatinine (0.52-1.04) mg/dL Est GFR (CKD-EPI)AfAm (>60 ml/min/1.73 sqM) Est GFR (CKD-EPI)NonAf (>60 ml/min/1.73 sqM) Glucose (74-99) mg/dL Calcium (8.4-10.2) mg/dL Total Bilirubin (0.2-1.3) mg/dL AST (14-36) U/L ALT (9-52) U/L Alkaline Phosphatase (38-126) U/L Total Protein (6.3-8.2) g/dL Albumin (3.5-5.0) g/dL Lipase (23-300) U/L Urine Color Urine Appearance (Clear) Urine pH (5.0-8.0) Ur Specific [place] (1.001-1.035) Urine Protein (Negative) Urine Glucose (UA) (Negative) Urine Ketones (Negative) Urine Blood (Negative) Urine Nitrite (Negative) Urine Bilirubin (Negative) Urine Urobilinogen (<2.0) mg/dL Ur Leukocyte Esterase (Negative) Urine RBC (0-5) /hpf Urine WBC (0-5) /hpf Ur Squamous Epith Cells (0-4) /hpf Urine Bacteria (None) /hpf Urine Mucus (None) /hpf Urine HCG, Qual Not Detected (Not Detectd) 03/15/18 03/15/18 Range/Units 17:31 17:31 WBC (3.8-10.6) k/uL RBC (3.80-5.40) m/uL Hgb (11.4-16.0) gm/dL Hct (34.0-46.0) % MCV (80.0-100.0) fL MCH (25.0-35.0) pg MCHC (31.0-37.0) g/dL RDW (11.5-15.5) % Plt Count (150-450) k/uL Neutrophils % % Lymphocytes % % Monocytes % % Eosinophils % % Basophils % % Neutrophils # (1.3-7.7) k/uL Lymphocytes # (1.0-4.8) k/uL Monocytes # (0-1.0) k/uL Eosinophils # (0-0.7) k/uL Basophils # (0-0.2) k/uL PT (9.0-12.0) sec INR (<1.2) APTT (22.0-30.0) sec Sodium 140 (137-145) mmol/L Potassium 4.5 (3.5-5.1) mmol/L Chloride 105 (98-107) mmol/L Carbon Dioxide 22 (22-30) mmol/L Anion Gap 13 mmol/L BUN 9 (7-17) mg/dL Creatinine 0.68 (0.52-1.04) mg/dL Est GFR (CKD-EPI)AfAm >90 (>60 ml/min/1.73 sqM) Est GFR (CKD-EPI)NonAf >90 (>60 ml/min/1.73 sqM) Glucose 118 H (74-99) mg/dL Calcium 9.5 (8.4-10.2) mg/dL Total Bilirubin 0.3 (0.2-1.3) mg/dL AST 132 H (14-36) U/L ALT 100 H (9-52) U/L Alkaline Phosphatase 66 (38-126) U/L Total Protein 7.4 (6.3-8.2) g/dL Albumin 3.9 (3.5-5.0) g/dL Lipase 56 (23-300) U/L Urine Color Yellow Urine Appearance Cloudy H (Clear) Urine pH 5.5 (5.0-8.0) Ur Specific [place] 1.018 (1.001-1.035) Urine Protein Trace H (Negative) Urine Glucose (UA) Negative (Negative) Urine Ketones Negative (Negative) Urine Blood Moderate H (Negative) Urine Nitrite Negative (Negative) Urine Bilirubin Negative (Negative) Urine Urobilinogen <2.0 (<2.0) mg/dL Ur Leukocyte Esterase Trace H (Negative) Urine RBC 2 (0-5) /hpf Urine WBC 4 (0-5) /hpf Ur Squamous Epith Cells 21 H (0-4) /hpf Urine Bacteria Occasional H (None) /hpf Urine Mucus Rare H (None) /hpf Urine HCG, Qual (Not Detectd) Disposition Clinical Impression: Transaminitis, Abdominal pain Disposition: HOME SELF-CARE Condition: Good Instructions: Abdominal Pain (ED) Is patient prescribed a controlled substance at d/c from ED?: No Referrals: Marysol Rose DO [Primary Care Provider] - 1-2 days Time of Disposition: 18:38
[2018-03-15 17:39] LABS: Basophils % (A) 0 %; Eosinophils # (A) 0.4 k/uL (0-0.7); Eosinophils % (A) 4 %; HCT 38.6 % (34.0-46.0); HGB 12.4 gm/dL (11.4-16.0); Lymphocytes # (A) 2.4 k/uL (1.0-4.8); Lymphocytes % (A) 23 %; MCH 27.9 pg (25.0-35.0); MCHC 32.1 g/dL (31.0-37.0); MCV 86.7 fL (80.0-100.0); Mean Platelet Volume 6.6; Monocytes # (A) 0.5 k/uL (0-1.0); Monocytes % (A) 4 %; Neutrophils % (A) 67 %; Platelet Count 347 k/uL (150-450); RBC 4.45 m/uL (3.80-5.40); RDW 13.4 % (11.5-15.5); WBC 10.4 k/uL (3.8-10.6)
[2018-03-15 17:48] LABS: Appearance,Urine Cloudy (Clear); Bacteria,Urine Occasional /hpf; Bilirubin,Urine Negative (Negative); Blood,Urine Moderate (Negative); Color,Urine Yellow; Glucose,Urine (UA) Negative (Negative); Ketones,Urine Negative (Negative); Leukocyte Esterase,Urine Trace (Negative); Mucus,Urine Rare /hpf; Nitrite,Urine Negative (Negative); PH, Urine 5.5 (5.0-8.0); Protein,Urine Trace (Negative); RBC,Urine 2 /hpf (0-5); Specific Gravity,Urine 1.018 (1.001-1.035); Squamous Epithelial Cell,Urine 21 /hpf (0-4); Urobilinogen,Urine <2.0 mg/dL (<2.0); WBC,Urine 4 /hpf (0-5)
[2018-03-15 17:53] LABS: ALT 100 U/L (9-52); AST 132 U/L (14-36); Albumin 3.9 g/dL (3.5-5.0); Alkaline Phosphatase 66 U/L (38-126); Anion Gap 13 mmol/L; Blood Urea Nitrogen 9 mg/dL (7-17); Calcium 9.5 mg/dL (8.4-10.2); Carbon Dioxide 22 mmol/L (22-30); Chloride 105 mmol/L (98-107); Glucose 118 mg/dL (74-99); Lipase 56 U/L (23-300); Potassium 4.5 mmol/L (3.5-5.1); Sodium 140 mmol/L (137-145); Total Bilirubin 0.3 mg/dL (0.2-1.3); Total Protein 7.4 g/dL (6.3-8.2)
[2018-03-15 17:54] LABS: INR 0.9 (<1.2); Partial Thromboplastin Time 22.8 sec (22.0-30.0); Prothrombin Time 9.3 sec (9.0-12.0)
[2018-03-15 18:01] VITALS: BP 121/73; PULSE 98
[2018-03-15 18:59] VITALS: TEMP 98.3
== END 2018-03-15 18:58 | disposition home or self-care (01) ==
LOC: EC 16:35
DX: R74.0 Nonspecific elevation of levels of transaminase and lactic acid dehydrogenase [LDH] (principal); R10.11 Right upper quadrant pain; R11.2 Nausea with vomiting, unspecified; R19.7 Diarrhea, unspecified; R50.9 Fever, unspecified; R39.89 Other symptoms and signs involving the genitourinary system; J45.909 Unspecified asthma, uncomplicated; E11.9 Type 2 diabetes mellitus without complications; K21.9 Gastro-esophageal reflux disease without esophagitis; E07.9 Disorder of thyroid, unspecified; F32.9 Major depressive disorder, single episode, unspecified; F41.9 Anxiety disorder, unspecified; Z79.3 Long term (current) use of hormonal contraceptives; Z79.84 Long term (current) use of oral hypoglycemic drugs; Z79.899 Other long term (current) drug therapy; Z88.0 Allergy status to penicillin; Z88.5 Allergy status to narcotic agent; Z88.6 Allergy status to analgesic agent; Z88.8 Allergy status to other drugs, medicaments and biological substances; Z91.013 Allergy to seafood; Z91.018 Allergy to other foods; Z91.040 Latex allergy status; Z83.79 Family history of other diseases of the digestive system; Z90.49 Acquired absence of other specified parts of digestive tract
CPT/HCPCS: 36415; 80053; 83690; 85025; 85610; 85730; 81001; 81025; 99283; 96374; 96375; 96361; J1885; J2270

== ENCOUNTER 2018-03-20 15:53 | Emergency (ER) | payer OTHER ==
[2018-03-20] MEDS ORDERED: ONDANSETRON 4 MG/2 ML VIAL IVP STA (17:41)
[2018-03-20] MEDS ORDERED: KETOROLAC 30 MG/ML 1 ML VIAL IVP STA (17:41)
[2018-03-20] MEDS ORDERED: MORPHINE SULFATE 2 MG/ML SYRINGE IV STA (17:41)
[2018-03-20] MEDS ORDERED: SODIUM CHLORIDE 0.9% 1,000 ML IV STA (17:41)
[2018-03-20] MEDS ORDERED: SODIUM CHLORIDE 0.9% 2,000 ML IV STA (17:41)
[2018-03-20 19:01] LABS: Basophils % (A) 0 %; Eosinophils # (A) 0.4 k/uL (0-0.7); Eosinophils % (A) 4 %; HCT 39.2 % (34.0-46.0); HGB 12.5 gm/dL (11.4-16.0); Lymphocytes # (A) 2.4 k/uL (1.0-4.8); Lymphocytes % (A) 26 %; MCHC 31.8 g/dL (31.0-37.0); Mean Platelet Volume 6.9; Monocytes # (A) 0.5 k/uL (0-1.0); Monocytes % (A) 5 %; Neutrophils # (A) 5.9 k/uL (1.3-7.7); Neutrophils % (A) 63 %; Platelet Count 336 k/uL (150-450); RBC 4.45 m/uL (3.80-5.40); RDW 13.5 % (11.5-15.5); WBC 9.3 k/uL (3.8-10.6)
[2018-03-20 19:09] LABS: ALT 232 U/L (9-52); AST 283 U/L (14-36); Alkaline Phosphatase 78 U/L (38-126); Amylase 39 U/L (30-110); Anion Gap 13 mmol/L; Blood Urea Nitrogen 6 mg/dL (7-17); Calcium 9.8 mg/dL (8.4-10.2); Carbon Dioxide 25 mmol/L (22-30); Chloride 102 mmol/L (98-107); Glucose 101 mg/dL (74-99); Lipase 61 U/L (23-300); Partial Thromboplastin Time 24.2 sec (22.0-30.0); Potassium 4.6 mmol/L (3.5-5.1); Prothrombin Time 9.8 sec (9.0-12.0); Sodium 140 mmol/L (137-145); Total Bilirubin 0.3 mg/dL (0.2-1.3); Total Protein 7.3 g/dL (6.3-8.2)
--- NOTE | 2018-03-20 19:12 | ED ---
Abdominal Pain HPI - General Chief Complaint: Abdominal Pain Stated Complaint: Abd Pain Time Seen by Provider: 03/20/18 17:31 Source: patient, RN notes reviewed, old records reviewed Mode of arrival: ambulatory Limitations: no limitations - History of Present Illness Initial Comments: 22-year-old female with history of liver cirrhosis and a patio megaly resent to the right upper quadrant abdominal pain. Patient reports she was seen 1 week ago for similar complaints. She been feeling slightly ill for quite some time. Patient does not count house much. She is in chronic pain. She's been evaluated multiple times for GI specialist here. Multiple liver biopsies. Patient's mother reports she plans to [facility]. She's had a few episodes of vomiting. No fevers or chills. No diarrhea. She is currently on her menstrual cycle. MD Complaint: abdominal pain - Related Data Home Medications Medication Instructions Recorded Confirmed Albuterol Inhaler [Ventolin Hfa 2 puff INHALATION RT-Q6H PRN 08/27/15 03/20/18 Inhaler] [place] Carbonate 900 mg PO HS 08/27/15 03/20/18 Omeprazole [PriLOSEC] 20 mg PO BID 08/27/15 03/20/18 Levothyroxine Sodium [Synthroid] 125 mcg PO QAM 01/06/17 03/20/18 FLUoxetine HCL [PROzac] 40 mg PO QAM 01/23/17 03/20/18 Ergocalciferol [Vitamin D2 50,000 unit PO BELL 02/13/17 03/20/18 (DRISDOL)] Montelukast [Singulair] 10 mg PO HS 05/21/17 03/20/18 cloNIDine HCL [Catapres] 0.2 mg PO HS 05/21/17 03/20/18 Potassium Chloride [K-Tab ER] 10 meq PO DAILY 09/14/17 03/20/18 metFORMIN HCL ER [Glucophage Xr] 1,000 mg PO HS 11/20/17 03/20/18 Imipramine HCl [Tofranil] 50 mg PO DAILY 01/10/18 03/20/18 Famotidine [Pepcid] 20 mg PO BID 02/04/18 03/20/18 Loratadine [Claritin] 10 mg PO DAILY 02/04/18 03/20/18 Norgestimate-Ethinyl Estradiol 1 tab PO DAILY 02/04/18 03/20/18 [Sprintec 28 Day Tablet] clonazePAM [KlonoPIN] 0.5 mg PO HS 02/04/18 03/20/18 Pioglitazone [Actos] 15 mg PO DAILY 03/20/18 03/20/18 Allergies Allergy/AdvReac Type Severity Reaction Status Date / Time fentanyl Allergy Rash/Hives Verified 03/20/18 17:33 grape Allergy Anaphylaxis Verified 03/20/18 17:33 latex Allergy Rash/Hives Verified 03/20/18 17:33 Penicillins Allergy Anaphylaxis Verified 03/20/18 17:33 ibuprofen [From Motrin] AdvReac GI Bleed Verified 03/20/18 17:33 prazosin AdvReac Nausea & Verified 03/20/18 17:33 Vomiting Seafood Allergy Anaphylaxis Uncoded 03/20/18 17:01 Review of Systems ROS Statement: Those systems with pertinent positive or pertinent negative responses have been documented in the HPI. ROS Other: All systems not noted in ROS Statement are negative. Past Medical History Past Medical History: Asthma, Chest Pain / Angina, Diabetes Mellitus, Fibromyalgia, GERD/Reflux, Liver Disease, Thyroid Disorder Additional Past Medical History / Comment(s): Hepatitis, Cirrhosis of the liver. Esophagalitis. Migraines. IBS. PART OF STOMACH NON-FUNCTIONING. BLOOD IN STOOL, VOMITING DAILY. History of Any Multi-Drug Resistant Organisms: None Reported Past Surgical History: Appendectomy, Cholecystectomy, Tonsillectomy Additional Past Surgical History / Comment(s): NASAL Septum repair. COLONOSCOPY. Past Anesthesia/Blood Transfusion Reactions: Motion Sickness Past Psychological History: Anxiety, Depression, PTSD Smoking Status: Never smoker Past Alcohol Use History: None Reported Past Drug Use History: None Reported - Past Family History Mother Family Medical History: No Reported History Father Family Medical History: Liver Disease Additional Family Medical History / Comment(s): cirrhosis, esophagus disease General Exam - General Exam Comments Initial Comments: Alert and oriented 22-year-old female. No distress. Limitations: no limitations General appearance: alert, in no apparent distress Head exam: Present: atraumatic, normocephalic, normal inspection Eye exam: Present: normal appearance, PERRL, EOMI. Absent: scleral icterus, conjunctival injection, periorbital swelling ENT exam: Present: normal exam, mucous membranes moist Neck exam: Present: normal inspection. Absent: tenderness, meningismus, lymphadenopathy Respiratory exam: Present: normal lung sounds bilaterally. Absent: respiratory distress, wheezes, rales, rhonchi, stridor Cardiovascular Exam: Present: regular rate, normal rhythm, normal heart sounds. Absent: systolic murmur, diastolic murmur, rubs, gallop, clicks GI/Abdominal exam: Present: soft, tenderness (Rightl quadrant abdominal pain.), normal bowel sounds. Absent: distended, guarding, rebound, rigid Course Vital Signs 03/20/18 03/20/18 17:00 19:30 Temperature 98.3 F Pulse Rate 114 H 64 Respiratory 20 16 Rate Blood Pressure 112/69 126/69 O2 Sat by Pulse 97 98 Oximetry Medical Decision Making - Medical Decision Making [id number] presents with history of liver cirrhosis and chronic abdominal pain with one week of increased right upper quadrant Pain. Episodes of Nausea and Vomiting. Patient Was Given IV Fluids Labwork Obtained. She Does Have Elevated Liver Enzymes. I Did Discuss This Is Been Stable from Her Chronic Elevations in the past Few Years. Patient Informed of the Increased from Last Week. Did Offer Further Evaluation by GI Here. Family States That He Would like to Just Take Her Home. Following up with a Specialist at [facility]. I Discussed Falling up with Primary Care Physician. Was Discharged after Another Dose of Pain Medication Emergency Department. Discussed Appropriate Follow-Up with Return Return Parameters Were Discussed. - Lab Data Result diagrams: 03/20/18 18:35 03/20/18 18:35 Lab Results 03/20/18 03/20/18 03/20/18 Range/Units 18:35 18:35 18:35 WBC 9.3 (3.8-10.6) k/uL RBC 4.45 (3.80-5.40) m/uL Hgb 12.5 (11.4-16.0) gm/dL Hct 39.2 (34.0-46.0) % MCV 88.0 (80.0-100.0) fL MCH 28.0 (25.0-35.0) pg MCHC 31.8 (31.0-37.0) g/dL RDW 13.5 (11.5-15.5) % Plt Count 336 (150-450) k/uL Neutrophils % 63 % Lymphocytes % 26 % Monocytes % 5 % Eosinophils % 4 % Basophils % 0 % Neutrophils # 5.9 (1.3-7.7) k/uL Lymphocytes # 2.4 (1.0-4.8) k/uL Monocytes # 0.5 (0-1.0) k/uL Eosinophils # 0.4 (0-0.7) k/uL Basophils # 0.0 (0-0.2) k/uL PT 9.8 (9.0-12.0) sec INR 1.0 (<1.2) APTT 24.2 (22.0-30.0) sec Sodium 140 (137-145) mmol/L Potassium 4.6 (3.5-5.1) mmol/L Chloride 102 (98-107) mmol/L Carbon Dioxide 25 (22-30) mmol/L Anion Gap 13 mmol/L BUN 6 L (7-17) mg/dL Creatinine 0.65 (0.52-1.04) mg/dL Est GFR (CKD-EPI)AfAm >90 (>60 ml/min/1.73 sqM) Est GFR (CKD-EPI)NonAf >90 (>60 ml/min/1.73 sqM) Glucose 101 H (74-99) mg/dL Calcium 9.8 (8.4-10.2) mg/dL Total Bilirubin 0.3 (0.2-1.3) mg/dL AST 283 H (14-36) U/L ALT 232 H (9-52) U/L Alkaline Phosphatase 78 (38-126) U/L Total Protein 7.3 (6.3-8.2) g/dL Albumin 4.0 (3.5-5.0) g/dL Amylase 39 (30-110) U/L Lipase 61 (23-300) U/L Urine Color Urine Appearance (Clear) Urine pH (5.0-8.0) Ur Specific [place] (1.001-1.035) Urine Protein (Negative) Urine Glucose (UA) (Negative) Urine Ketones (Negative) Urine Blood (Negative) Urine Nitrite (Negative) Urine Bilirubin (Negative) Urine Urobilinogen (<2.0) mg/dL Ur Leukocyte Esterase (Negative) Urine RBC (0-5) /hpf Urine WBC (0-5) /hpf Ur Squamous Epith Cells (0-4) /hpf Urine Mucus (None) /hpf 07/05/18 Range/Units 18:50 WBC (3.8-10.6) k/uL RBC (3.80-5.40) m/uL Hgb (11.4-16.0) gm/dL Hct (34.0-46.0) % MCV (80.0-100.0) fL MCH (25.0-35.0) pg MCHC (31.0-37.0) g/dL RDW (11.5-15.5) % Plt Count (150-450) k/uL Neutrophils % % Lymphocytes % % Monocytes % % Eosinophils % % Basophils % % Neutrophils # (1.3-7.7) k/uL Lymphocytes # (1.0-4.8) k/uL Monocytes # (0-1.0) k/uL Eosinophils # (0-0.7) k/uL Basophils # (0-0.2) k/uL PT (9.0-12.0) sec INR (<1.2) APTT (22.0-30.0) sec Sodium (137-145) mmol/L Potassium (3.5-5.1) mmol/L Chloride (98-107) mmol/L Carbon Dioxide (22-30) mmol/L Anion Gap mmol/L BUN (7-17) mg/dL Creatinine (0.52-1.04) mg/dL Est GFR (CKD-EPI)AfAm (>60 ml/min/1.73 sqM) Est GFR (CKD-EPI)NonAf (>60 ml/min/1.73 sqM) Glucose (74-99) mg/dL Calcium (8.4-10.2) mg/dL Total Bilirubin (0.2-1.3) mg/dL AST (14-36) U/L ALT (9-52) U/L Alkaline Phosphatase (38-126) U/L Total Protein (6.3-8.2) g/dL Albumin (3.5-5.0) g/dL Amylase (30-110) U/L Lipase (23-300) U/L Urine Color Yellow Urine Appearance Cloudy H (Clear) Urine pH 6.5 (5.0-8.0) Ur Specific [place] 1.015 (1.001-1.035) Urine Protein Negative (Negative) Urine Glucose (UA) Negative (Negative) Urine Ketones Negative (Negative) Urine Blood Moderate H (Negative) Urine Nitrite Negative (Negative) Urine Bilirubin Negative (Negative) Urine Urobilinogen <2.0 (<2.0) mg/dL Ur Leukocyte Esterase Small H (Negative) Urine RBC 2 (0-5) /hpf Urine WBC 4 (0-5) /hpf Ur Squamous Epith Cells 14 H (0-4) /hpf Urine Mucus Rare H (None) /hpf - Radiology Data Radiology results: report reviewed Nonacute abdomen. Disposition Clinical Impression: Abdominal pain, Hepatomegaly, NAFLD (nonalcoholic fatty liver disease), Chronic pain Disposition: HOME SELF-CARE Condition: Good Instructions: Abdominal Pain (ED) Additional Instructions: Follow-up with primary care physician. Return to emergency department if any alarming signs or symptoms occur. Is patient prescribed a controlled substance at d/c from ED?: No When asked, does pt state using other controlled substances?: No If prescribed controlled substance>3 days was MAPS reviewed?: No If opioid is for acute pain is fill amount 7 days or less?: No If Rx opioid, was Start Talking consent form obtained?: No Referrals: Marysol Rose DO [Primary Care Provider] - 1-2 days Time of Disposition: 19:53
[2018-03-20 19:17] LABS: Appearance,Urine Cloudy (Clear); Bilirubin,Urine Negative (Negative); Blood,Urine Moderate (Negative); Color,Urine Yellow; Glucose,Urine (UA) Negative (Negative); Ketones,Urine Negative (Negative); Leukocyte Esterase,Urine Small (Negative); Mucus,Urine Rare /hpf; Nitrite,Urine Negative (Negative); PH, Urine 6.5 (5.0-8.0); Protein,Urine Negative (Negative); RBC,Urine 2 /hpf (0-5); Specific Gravity,Urine 1.015 (1.001-1.035); Squamous Epithelial Cell,Urine 14 /hpf (0-4); Urobilinogen,Urine <2.0 mg/dL (<2.0); WBC,Urine 4 /hpf (0-5)
[2018-03-20 19:32] VITALS: RESP 16
--- NOTE | 2018-03-20 19:48 | XR ---
EXAMINATION TYPE: XR KUB DATE OF EXAM: 03/20/2018 COMPARISON: 01/10/2018 HISTORY: Right-sided abdominal pain TECHNIQUE: 2 views FINDINGS: There is no sign of intestinal obstruction or pneumoperitoneum. Fecal pattern is normal. Alexandrea ng bases are clear. There are no pathologic calcifications over the kidneys. There are clips from cho lecystectomy. IMPRESSION: Nonacute abdomen. No change.
[2018-03-20] MEDS ORDERED: MORPHINE SULFATE 2 MG/ML SYRINGE IVP STA (19:52)
[2018-03-20 20:12] VITALS: BP 132/89; PULSE 94; TEMP 98.6
== END 2018-03-20 20:26 | disposition home or self-care (01) ==
LOC: EC 15:53
DX: K76.0 Fatty (change of) liver, not elsewhere classified (principal); R16.0 Hepatomegaly, not elsewhere classified; R11.2 Nausea with vomiting, unspecified; J45.909 Unspecified asthma, uncomplicated; E11.9 Type 2 diabetes mellitus without complications; M79.7 Fibromyalgia; K21.9 Gastro-esophageal reflux disease without esophagitis; E07.9 Disorder of thyroid, unspecified; F41.9 Anxiety disorder, unspecified; F32.9 Major depressive disorder, single episode, unspecified; F43.10 Post-traumatic stress disorder, unspecified; Z79.3 Long term (current) use of hormonal contraceptives; Z79.84 Long term (current) use of oral hypoglycemic drugs; Z79.899 Other long term (current) drug therapy; Z88.0 Allergy status to penicillin; Z88.6 Allergy status to analgesic agent; Z88.8 Allergy status to other drugs, medicaments and biological substances; Z91.013 Allergy to seafood; Z91.018 Allergy to other foods; Z91.040 Latex allergy status
CPT/HCPCS: 36415; 80053; 82150; 83690; 85025; 85610; 85730; 81001; 74018; 99284; 96374; 96375 ×2; 96376; 96361; J2405; J1885; J2270

== ENCOUNTER 2018-03-27 23:46 | Emergency (ER) | payer OTHER ==
[2018-03-28] MEDS ORDERED: MORPHINE SULFATE 2 MG/ML SYRINGE IVP STA (00:34)
[2018-03-28] MEDS ORDERED: KETOROLAC 30 MG/ML 1 ML VIAL IVP STA (00:34)
[2018-03-28] MEDS ORDERED: SODIUM CHLORIDE 0.9% 1,000 ML IV STA (00:34)
--- NOTE | 2018-03-28 00:49 | ED ---
Abdominal Pain HPI - General Chief Complaint: Abdominal Pain Stated Complaint: vomiting,nausea Time Seen by Provider: 03/27/18 23:58 Source: patient, RN notes reviewed, old records reviewed Mode of arrival: ambulatory Limitations: no limitations - History of Present Illness Initial Comments: 22-year-old female well-known to emergency department with chief complaint of abdominal pain one episode of vomiting this evening. Patient reports that she' s been having crampy abdominal pain HPI does have history of elevated liver enzymes. She is following up with [facility]. She reports that she has a scheduled appointment within the next month. She was she seen GI specialist around the area. No bloody emesis. No bloody stools. She did have some diarrhea today. - Related Data Home Medications Medication Instructions Recorded Confirmed Albuterol Inhaler [Ventolin Hfa 2 puff INHALATION RT-Q6H PRN 08/27/15 03/20/18 Inhaler] [place] Carbonate 900 mg PO HS 08/27/15 03/20/18 Omeprazole [PriLOSEC] 20 mg PO BID 08/27/15 03/20/18 Levothyroxine Sodium [Synthroid] 125 mcg PO QAM 01/06/17 03/20/18 FLUoxetine HCL [PROzac] 40 mg PO QAM 01/23/17 03/20/18 Ergocalciferol [Vitamin D2 50,000 unit PO BELL 02/13/17 03/20/18 (DRISDOL)] Montelukast [Singulair] 10 mg PO HS 05/21/17 03/20/18 cloNIDine HCL [Catapres] 0.2 mg PO HS 05/21/17 03/20/18 Potassium Chloride [K-Tab ER] 10 meq PO DAILY 09/14/17 03/20/18 metFORMIN HCL ER [Glucophage Xr] 1,000 mg PO HS 11/20/17 03/20/18 Imipramine HCl [Tofranil] 50 mg PO DAILY 01/10/18 03/20/18 Famotidine [Pepcid] 20 mg PO BID 02/04/18 03/20/18 Loratadine [Claritin] 10 mg PO DAILY 02/04/18 03/20/18 Norgestimate-Ethinyl Estradiol 1 tab PO DAILY 02/04/18 03/20/18 [Sprintec 28 Day Tablet] clonazePAM [KlonoPIN] 0.5 mg PO HS 02/04/18 03/20/18 Pioglitazone [Actos] 15 mg PO DAILY 03/20/18 03/20/18 Allergies Allergy/AdvReac Type Severity Reaction Status Date / Time fentanyl Allergy Rash/Hives Verified 03/27/18 23:52 grape Allergy Anaphylaxis Verified 03/27/18 23:52 latex Allergy Rash/Hives Verified 03/27/18 23:52 Penicillins Allergy Anaphylaxis Verified 03/27/18 23:52 ibuprofen [From Motrin] AdvReac GI Bleed Verified 03/27/18 23:52 prazosin AdvReac Nausea & Verified 03/27/18 23:52 Vomiting Seafood Allergy Anaphylaxis Uncoded 03/27/18 23:52 Review of Systems ROS Statement: Those systems with pertinent positive or pertinent negative responses have been documented in the HPI. ROS Other: All systems not noted in ROS Statement are negative. Past Medical History Past Medical History: Asthma, Chest Pain / Angina, Diabetes Mellitus, Fibromyalgia, GERD/Reflux, Liver Disease, Thyroid Disorder Additional Past Medical History / Comment(s): Hepatitis, Cirrhosis of the liver. Esophagalitis. Migraines. IBS. PART OF STOMACH NON-FUNCTIONING. BLOOD IN STOOL, VOMITING DAILY. History of Any Multi-Drug Resistant Organisms: None Reported Past Surgical History: Appendectomy, Cholecystectomy, Tonsillectomy Additional Past Surgical History / Comment(s): NASAL Septum repair. COLONOSCOPY. Past Anesthesia/Blood Transfusion Reactions: Motion Sickness Past Psychological History: Anxiety, Depression, PTSD Smoking Status: Never smoker Past Alcohol Use History: None Reported Past Drug Use History: None Reported - Past Family History Mother Family Medical History: No Reported History Father Family Medical History: Liver Disease Additional Family Medical History / Comment(s): cirrhosis, esophagus disease General Exam - General Exam Comments Initial Comments: This is a 22-year-old female. Alert and oriented. No acute distress. General: Well appearing, well nourished, in no distress. Oriented x 3, normal mood and affect . Ambulating without difficulty. Skin: Good turgor, no rash, unusual bruising or prominent lesions Hair: Normal texture and distribution. HEENT: Head: Normocephalic, atraumatic, no visible or palpable masses, depressions, or scaring. Eyes: Visual acuity intact, conjunctiva clear, sclera non-icteric, EOM intact, PERRL. Ears: EACs clear, TMs translucent & cone of light visualized. hearing intact. Nose: No external lesions, mucosa non-inflamed, septum and turbinates normal Mouth: Mucous membranes moist, no mucosal lesions. Teeth/Gums: No obvious caries or periodontal disease. No gingival inflammation or significant resorption. Pharynx: Mucosa non-inflamed, no tonsillar hypertrophy or exudate Neck: Supple, without lesions, bruits, or adenopathy, thyroid non-enlarged and non-tender Heart: No cardiomegaly or thrills; regular rate and rhythm, no murmur or gallop Lungs: Clear to auscultation and percussion Abdomen: Bowel sounds normal, no tenderness, organomegaly, masses, or hernia Back: Spine normal without deformity or tenderness, no CVA tenderness Extremities: No amputations or deformities, cyanosis, edema or varicosities, peripheral pulses intact Musculoskeletal: Normal gait and station. No misalignment, asymmetry, crepitation, defects, tenderness, masses, effusions, decreased range of motion, instability, atrophy or abnormal strength or tone in the head, neck, spine, ribs , pelvis or extremities. Neurologic: CN 2-12 normal. Sensation to pain, touch, and proprioception normal. DTRs normal in upper and lower extremities. No pathologic reflexes. Psychiatric: Oriented X3, intact recent and remote memory, Patient is timid. Limitations: no limitations Course Vital Signs 03/27/18 03/28/18 23:48 02:47 Temperature 98.7 F 97.6 F Pulse Rate 111 H 81 Respiratory 17 16 Rate Blood Pressure 138/82 127/71 O2 Sat by Pulse 98 98 Oximetry Medical Decision Making - Medical Decision Making 22-year-old female well-known to emergency department with chief complaint of abdominal pain one episode of vomiting this evening. Patient has no significant abdominal tenderness. All of her lab work was reviewed and normal. Liver enzymes are within normal limits. Her last ER visit. For these results. Patient does feel better after the IV fluids and Zofran. Discussed follow-up with PCP. O questions answered return parameters were discussed. - Lab Data Result diagrams: 03/28/18 00:58 03/28/18 00:58 Lab Results 03/28/18 03/28/18 03/28/18 Range/Units 00:58 00:58 00:58 WBC 12.3 H (3.8-10.6) k/uL RBC 4.60 (3.80-5.40) m/uL Hgb 12.8 (11.4-16.0) gm/dL Hct 40.4 (34.0-46.0) % MCV 87.8 (80.0-100.0) fL MCH 27.7 (25.0-35.0) pg MCHC 31.6 (31.0-37.0) g/dL RDW 13.3 (11.5-15.5) % Plt Count 401 (150-450) k/uL Neutrophils % 73 % Lymphocytes % 19 % Monocytes % 4 % Eosinophils % 3 % Basophils % 1 % Neutrophils # 9.0 H (1.3-7.7) k/uL Lymphocytes # 2.3 (1.0-4.8) k/uL Monocytes # 0.5 (0-1.0) k/uL Eosinophils # 0.4 (0-0.7) k/uL Basophils # 0.1 (0-0.2) k/uL PT 9.8 (9.0-12.0) sec INR 1.0 (<1.2) APTT 21.4 L (22.0-30.0) sec Sodium 138 (137-145) mmol/L Potassium 4.2 (3.5-5.1) mmol/L Chloride 104 (98-107) mmol/L Carbon Dioxide 22 (22-30) mmol/L Anion Gap 12 mmol/L BUN 10 (7-17) mg/dL Creatinine 0.70 (0.52-1.04) mg/dL Est GFR (CKD-EPI)AfAm >90 (>60 ml/min/1.73 sqM) Est GFR (CKD-EPI)NonAf >90 (>60 ml/min/1.73 sqM) Glucose 85 (74-99) mg/dL Calcium 9.9 (8.4-10.2) mg/dL Total Bilirubin 0.3 (0.2-1.3) mg/dL AST 67 H (14-36) U/L ALT 78 H (9-52) U/L Alkaline Phosphatase 83 (38-126) U/L Total Protein 7.8 (6.3-8.2) g/dL Albumin 4.2 (3.5-5.0) g/dL Amylase 58 (30-110) U/L Lipase 74 (23-300) U/L Urine Color Urine Appearance (Clear) Urine pH (5.0-8.0) Ur Specific [place] (1.001-1.035) Urine Protein (Negative) Urine Glucose (UA) (Negative) Urine Ketones (Negative) Urine Blood (Negative) Urine Nitrite (Negative) Urine Bilirubin (Negative) Urine Urobilinogen (<2.0) mg/dL Ur Leukocyte Esterase (Negative) Urine RBC (0-5) /hpf Urine WBC (0-5) /hpf Ur Squamous Epith Cells (0-4) /hpf Urine Bacteria (None) /hpf Urine Mucus (None) /hpf 03/28/18 Range/Units 00:58 WBC (3.8-10.6) k/uL RBC (3.80-5.40) m/uL Hgb (11.4-16.0) gm/dL Hct (34.0-46.0) % MCV (80.0-100.0) fL MCH (25.0-35.0) pg MCHC (31.0-37.0) g/dL RDW (11.5-15.5) % Plt Count (150-450) k/uL Neutrophils % % Lymphocytes % % Monocytes % % Eosinophils % % Basophils % % Neutrophils # (1.3-7.7) k/uL Lymphocytes # (1.0-4.8) k/uL Monocytes # (0-1.0) k/uL Eosinophils # (0-0.7) k/uL Basophils # (0-0.2) k/uL PT (9.0-12.0) sec INR (<1.2) APTT (22.0-30.0) sec Sodium (137-145) mmol/L Potassium (3.5-5.1) mmol/L Chloride (98-107) mmol/L Carbon Dioxide (22-30) mmol/L Anion Gap mmol/L BUN (7-17) mg/dL Creatinine (0.52-1.04) mg/dL Est GFR (CKD-EPI)AfAm (>60 ml/min/1.73 sqM) Est GFR (CKD-EPI)NonAf (>60 ml/min/1.73 sqM) Glucose (74-99) mg/dL Calcium (8.4-10.2) mg/dL Total Bilirubin (0.2-1.3) mg/dL AST (14-36) U/L ALT (9-52) U/L Alkaline Phosphatase (38-126) U/L Total Protein (6.3-8.2) g/dL Albumin (3.5-5.0) g/dL Amylase (30-110) U/L Lipase (23-300) U/L Urine Color Yellow Urine Appearance Cloudy H (Clear) Urine pH 7.0 (5.0-8.0) Ur Specific [place] 1.020 (1.001-1.035) Urine Protein Trace H (Negative) Urine Glucose (UA) Negative (Negative) Urine Ketones Negative (Negative) Urine Blood Negative (Negative) Urine Nitrite Negative (Negative) Urine Bilirubin Negative (Negative) Urine Urobilinogen 3.0 (<2.0) mg/dL Ur Leukocyte Esterase Negative (Negative) Urine RBC <1 (0-5) /hpf Urine WBC 3 (0-5) /hpf Ur Squamous Epith Cells 7 H (0-4) /hpf Urine Bacteria Rare H (None) /hpf Urine Mucus Rare H (None) /hpf Disposition Clinical Impression: Nausea & vomiting Disposition: HOME SELF-CARE Condition: Good Instructions: Acute Nausea and Vomiting (ED) Additional Instructions: Patient should follow-up with primary care physician. Return to emergency department if any alarming signs or symptoms occur. Is patient prescribed a controlled substance at d/c from ED?: No When asked, does pt state using other controlled substances?: No If prescribed controlled substance>3 days was MAPS reviewed?: No If opioid is for acute pain is fill amount 7 days or less?: No If Rx opioid, was Start Talking consent form obtained?: No Referrals: Marysol Rose DO [Primary Care Provider] - 1-2 days Time of Disposition: 02:27
[2018-03-28 01:24] LABS: Appearance,Urine Cloudy (Clear); Bacteria,Urine Rare /hpf; Bilirubin,Urine Negative (Negative); Blood,Urine Negative (Negative); Color,Urine Yellow; Glucose,Urine (UA) Negative (Negative); Ketones,Urine Negative (Negative); Leukocyte Esterase,Urine Negative (Negative); Mucus,Urine Rare /hpf; Nitrite,Urine Negative (Negative); Protein,Urine Trace (Negative); RBC,Urine <1 /hpf (0-5); Squamous Epithelial Cell,Urine 7 /hpf (0-4); WBC,Urine 3 /hpf (0-5)
[2018-03-28 01:32] LABS: ALT 78 U/L (9-52); AST 67 U/L (14-36); Albumin 4.2 g/dL (3.5-5.0); Alkaline Phosphatase 83 U/L (38-126); Amylase 58 U/L (30-110); Anion Gap 12 mmol/L; Basophils # (A) 0.1 k/uL (0-0.2); Basophils % (A) 1 %; Blood Urea Nitrogen 10 mg/dL (7-17); Calcium 9.9 mg/dL (8.4-10.2); Carbon Dioxide 22 mmol/L (22-30); Chloride 104 mmol/L (98-107); Eosinophils # (A) 0.4 k/uL (0-0.7); Eosinophils % (A) 3 %; Glucose 85 mg/dL (74-99); HCT 40.4 % (34.0-46.0); HGB 12.8 gm/dL (11.4-16.0); Lipase 74 U/L (23-300); Lymphocytes # (A) 2.3 k/uL (1.0-4.8); Lymphocytes % (A) 19 %; MCH 27.7 pg (25.0-35.0); MCHC 31.6 g/dL (31.0-37.0); MCV 87.8 fL (80.0-100.0); Mean Platelet Volume 7.3; Monocytes # (A) 0.5 k/uL (0-1.0); Monocytes % (A) 4 %; Neutrophils % (A) 73 %; Platelet Count 401 k/uL (150-450); Potassium 4.2 mmol/L (3.5-5.1); RDW 13.3 % (11.5-15.5); Sodium 138 mmol/L (137-145); Total Bilirubin 0.3 mg/dL (0.2-1.3); Total Protein 7.8 g/dL (6.3-8.2); WBC 12.3 k/uL (3.8-10.6)
[2018-03-28 01:38] LABS: Prothrombin Time 9.8 sec (9.0-12.0)
[2018-03-28] MEDS ORDERED: ONDANSETRON 4 MG/2 ML VIAL IVP STA (01:39)
[2018-03-28 01:46] LABS: Partial Thromboplastin Time 21.4 sec (22.0-30.0)
[2018-03-28 02:48] VITALS: BP 127/71; PULSE 81; RESP 16; TEMP 97.6
== END 2018-03-28 02:48 | disposition home or self-care (01) ==
LOC: EC 23:46
DX: R11.2 Nausea with vomiting, unspecified (principal); R19.7 Diarrhea, unspecified; R10.9 Unspecified abdominal pain; J45.909 Unspecified asthma, uncomplicated; E11.9 Type 2 diabetes mellitus without complications; K21.9 Gastro-esophageal reflux disease without esophagitis; E07.9 Disorder of thyroid, unspecified; F32.9 Major depressive disorder, single episode, unspecified; F41.9 Anxiety disorder, unspecified; F43.10 Post-traumatic stress disorder, unspecified; Z79.3 Long term (current) use of hormonal contraceptives; Z79.84 Long term (current) use of oral hypoglycemic drugs; Z79.899 Other long term (current) drug therapy; Z88.0 Allergy status to penicillin; Z88.5 Allergy status to narcotic agent; Z88.6 Allergy status to analgesic agent; Z88.8 Allergy status to other drugs, medicaments and biological substances; Z91.013 Allergy to seafood; Z91.018 Allergy to other foods; Z91.040 Latex allergy status; Z90.49 Acquired absence of other specified parts of digestive tract
CPT/HCPCS: 99284; 96374; 96375 ×2; 36415; 80053; 82150; 83690; 85025; 85610; 85730; 81001; J2405; J1885; J2270

== ENCOUNTER 2018-03-31 23:38 | Emergency (ER) | payer OTHER ==
[2018-04-01 01:00] VITALS: RESP 18; TEMP 98.6
[2018-04-01] MEDS ORDERED: ONDANSETRON 4 MG/2 ML VIAL IVP STA (03:01)
[2018-04-01] MEDS ORDERED: SODIUM CHLORIDE 0.9% 1,000 ML IV STA (03:01)
[2018-04-01] MEDS ORDERED: MORPHINE SULFATE 2 MG/ML SYRINGE IVP STA ×2 (03:02→04:15)
--- NOTE | 2018-04-01 03:13 | ED ---
Abdominal Pain HPI - General Chief Complaint: Abdominal Pain Stated Complaint: Nausea, abd pain Time Seen by Provider: 04/01/18 02:52 Source: patient, RN notes reviewed Mode of arrival: ambulatory Limitations: no limitations - History of Present Illness Initial Comments: This is a 22-year-old female, well-known to the emergency department, who presents with chief complaint of nausea and right upper quadrant abdominal pain. Patient reports a history of liver cirrhosis and fatty liver disease. She has had multiple liver biopsies and studies performed. She does have an appointment scheduled with a monitoring tech at [facility] next month. Mother states that patient periodically experiences an exacerbation of her symptoms for which she has to come to the emergency department for IV medications. Patient states that for the past 4 days she is been having right upper quadrant abdominal pain, nausea and vomiting. She also reports blood in her stool. Denies any fevers or chills, chest pain or shortness of breath, diarrhea or constipation, dysuria or hematuria. - Related Data Home Medications Medication Instructions Recorded Confirmed Albuterol Inhaler [Ventolin Hfa 2 puff INHALATION RT-Q6H PRN 08/27/15 03/20/18 Inhaler] [place] Carbonate 900 mg PO HS 08/27/15 03/20/18 Omeprazole [PriLOSEC] 20 mg PO BID 08/27/15 03/20/18 Levothyroxine Sodium [Synthroid] 125 mcg PO QAM 01/06/17 03/20/18 FLUoxetine HCL [PROzac] 40 mg PO QAM 01/23/17 03/20/18 Ergocalciferol [Vitamin D2 50,000 unit PO BELL 02/13/17 03/20/18 (DRISDOL)] Montelukast [Singulair] 10 mg PO HS 05/21/17 03/20/18 cloNIDine HCL [Catapres] 0.2 mg PO HS 05/21/17 03/20/18 Potassium Chloride [K-Tab ER] 10 meq PO DAILY 09/14/17 03/20/18 metFORMIN HCL ER [Glucophage Xr] 1,000 mg PO HS 11/20/17 03/20/18 Imipramine HCl [Tofranil] 50 mg PO DAILY 01/10/18 03/20/18 Famotidine [Pepcid] 20 mg PO BID 02/04/18 03/20/18 Loratadine [Claritin] 10 mg PO DAILY 02/04/18 03/20/18 Norgestimate-Ethinyl Estradiol 1 tab PO DAILY 02/04/18 03/20/18 [Sprintec 28 Day Tablet] clonazePAM [KlonoPIN] 0.5 mg PO HS 02/04/18 03/20/18 Pioglitazone [Actos] 15 mg PO DAILY 03/20/18 03/20/18 Allergies Allergy/AdvReac Type Severity Reaction Status Date / Time fentanyl Allergy Rash/Hives Verified 04/01/18 01:00 grape Allergy Anaphylaxis Verified 04/01/18 01:00 latex Allergy Rash/Hives Verified 04/01/18 01:00 Penicillins Allergy Anaphylaxis Verified 04/01/18 01:00 ibuprofen [From Motrin] AdvReac GI Bleed Verified 04/01/18 01:00 prazosin AdvReac Nausea & Verified 04/01/18 01:00 Vomiting Seafood Allergy Anaphylaxis Uncoded 04/01/18 01:00 Review of Systems ROS Statement: Those systems with pertinent positive or pertinent negative responses have been documented in the HPI. ROS Other: All systems not noted in ROS Statement are negative. Past Medical History Past Medical History: Asthma, Chest Pain / Angina, Diabetes Mellitus, Fibromyalgia, GERD/Reflux, Liver Disease, Thyroid Disorder Additional Past Medical History / Comment(s): Hepatitis, Cirrhosis of the liver. Esophagalitis. Migraines. IBS. PART OF STOMACH NON-FUNCTIONING. BLOOD IN STOOL, VOMITING DAILY. History of Any Multi-Drug Resistant Organisms: None Reported Past Surgical History: Appendectomy, Cholecystectomy, Tonsillectomy Additional Past Surgical History / Comment(s): NASAL Septum repair. COLONOSCOPY. Past Anesthesia/Blood Transfusion Reactions: Motion Sickness Past Psychological History: Anxiety, Depression, PTSD Smoking Status: Never smoker Past Alcohol Use History: None Reported Past Drug Use History: None Reported - Past Family History Mother Family Medical History: No Reported History Father Family Medical History: Liver Disease Additional Family Medical History / Comment(s): cirrhosis, esophagus disease General Exam - General Exam Comments Initial Comments: General: Awake and alert, well-developed; in no apparent distress. Patient lying comfortably on ED stretcher. HEENT: Head atraumatic, normocephalic. Pupils are equal, round and reactive to light. Extraocular movements intact. Oropharynx moist without erythema or exudate. Neck: Supple. Normal ROM. Cardiovascular: Regular rate and rhythm. No murmurs, rubs or gallops. Chest symmetrical. Respiratory: Lungs clear to auscultation bilaterally. No wheezes, rales or rhonchi. Normal respiratory effort with no use of accessory muscles. Abdomen: Soft, non-distended. Mild tenderness on palpation of right upper quadrant. No rigidity, rebound or guarding. Normal bowel sounds in all 4 quadrants. Musculoskeletal: Normal ROM, no tenderness bilateral upper and lower extremities. Ambulating normally. Skin: [place], warm and dry without rashes or lesions. Neurological: Alert and oriented x3. CN II-XII grossly intact. Speech is fluent and answers are appropriate. No focal neuro deficits. Psychiatric: Normal mood and affect. No overt signs of depression or anxiety noted. Limitations: no limitations Course Vital Signs 04/01/18 00:57 Temperature 98.6 F Pulse Rate 110 H Respiratory 18 Rate Blood Pressure 165/103 O2 Sat by Pulse 98 Oximetry Medical Decision Making - Medical Decision Making This is a 22-year-old female who presents to the emergency department with chief complaint of abdominal pain. Patient is well-known to the emergency department. She has a history of liver cirrhosis and fatty liver disease. She is frequently here for symptomatic care. States that she does have a follow-up appointment with gastroenterology at [facility] next month. She states that over the past 4 days she has had an increase in her right upper quadrant abdominal pain, nausea and vomiting. While in the emergency department , patient was given IV fluids, pain meds and antiemetics. Abdomen is not significantly tender and is soft. Patient has a mildly elevated white contact 15.2 with a left shift of 9.8. Coags are within normal limits. Transaminases are slightly elevated at 106 and 94, otherwise CMP is unremarkable. Recommended following up with primary care provider. Patient is in no acute distress and will be discharged home at this time. All questions answered. - Lab Data Result diagrams: 04/01/18 03:30 04/01/18 03:30 Lab Results 04/01/18 04/01/18 04/01/18 Range/Units 03:30 03:30 03:30 WBC 15.2 H (3.8-10.6) k/uL RBC 4.66 (3.80-5.40) m/uL Hgb 13.2 (11.4-16.0) gm/dL Hct 40.2 (34.0-46.0) % MCV 86.2 (80.0-100.0) fL MCH 28.3 (25.0-35.0) pg MCHC 32.9 (31.0-37.0) g/dL RDW 13.4 (11.5-15.5) % Plt Count 391 (150-450) k/uL Neutrophils % 65 % Lymphocytes % 27 % Monocytes % 4 % Eosinophils % 3 % Basophils % 0 % Neutrophils # 9.8 H (1.3-7.7) k/uL Lymphocytes # 4.1 (1.0-4.8) k/uL Monocytes # 0.6 (0-1.0) k/uL Eosinophils # 0.5 (0-0.7) k/uL Basophils # 0.1 (0-0.2) k/uL PT 9.9 (9.0-12.0) sec INR 1.0 (<1.2) APTT 23.6 (22.0-30.0) sec Sodium 137 (137-145) mmol/L Potassium 4.8 (3.5-5.1) mmol/L Chloride 104 (98-107) mmol/L Carbon Dioxide 23 (22-30) mmol/L Anion Gap 10 mmol/L BUN 11 (7-17) mg/dL Creatinine 0.70 (0.52-1.04) mg/dL Est GFR (CKD-EPI)AfAm >90 (>60 ml/min/1.73 sqM) Est GFR (CKD-EPI)NonAf >90 (>60 ml/min/1.73 sqM) Glucose 89 (74-99) mg/dL Calcium 9.9 (8.4-10.2) mg/dL Total Bilirubin 0.5 (0.2-1.3) mg/dL AST 106 H (14-36) U/L ALT 94 H (9-52) U/L Alkaline Phosphatase 78 (38-126) U/L Total Protein 8.0 (6.3-8.2) g/dL Albumin 4.3 (3.5-5.0) g/dL Amylase 45 (30-110) U/L Lipase 52 (23-300) U/L Disposition Clinical Impression: RUQ pain, Nausea & vomiting Disposition: HOME SELF-CARE Condition: Fair Instructions: Abdominal Pain (ED) Additional Instructions: Please follow up with primary care provider within 1-2 days. Return to emergency department if symptoms should worsen or any concerns arise. Is patient prescribed a controlled substance at d/c from ED?: No Referrals: Marysol Rose DO [Primary Care Provider] - 1-2 days Time of Disposition: 04:52
[2018-04-01 03:53] LABS: Basophils # (A) 0.1 k/uL (0-0.2); Basophils % (A) 0 %; Eosinophils # (A) 0.5 k/uL (0-0.7); Eosinophils % (A) 3 %; HCT 40.2 % (34.0-46.0); HGB 13.2 gm/dL (11.4-16.0); Lymphocytes # (A) 4.1 k/uL (1.0-4.8); Lymphocytes % (A) 27 %; MCH 28.3 pg (25.0-35.0); MCHC 32.9 g/dL (31.0-37.0); MCV 86.2 fL (80.0-100.0); Mean Platelet Volume 7.2; Monocytes # (A) 0.6 k/uL (0-1.0); Monocytes % (A) 4 %; Neutrophils # (A) 9.8 k/uL (1.3-7.7); Neutrophils % (A) 65 %; Platelet Count 391 k/uL (150-450); RBC 4.66 m/uL (3.80-5.40); RDW 13.4 % (11.5-15.5); WBC 15.2 k/uL (3.8-10.6)
[2018-04-01 04:08] LABS: ALT 94 U/L (9-52); AST 106 U/L (14-36); Albumin 4.3 g/dL (3.5-5.0); Alkaline Phosphatase 78 U/L (38-126); Amylase 45 U/L (30-110); Anion Gap 10 mmol/L; Blood Urea Nitrogen 11 mg/dL (7-17); Calcium 9.9 mg/dL (8.4-10.2); Carbon Dioxide 23 mmol/L (22-30); Chloride 104 mmol/L (98-107); Glucose 89 mg/dL (74-99); Lipase 52 U/L (23-300); Potassium 4.8 mmol/L (3.5-5.1); Sodium 137 mmol/L (137-145); Total Bilirubin 0.5 mg/dL (0.2-1.3)
[2018-04-01 04:14] LABS: Partial Thromboplastin Time 23.6 sec (22.0-30.0); Prothrombin Time 9.9 sec (9.0-12.0)
[2018-04-01] MEDS ORDERED: METOCLOPRAMIDE 5 MG/ML 2 ML VIAL IVP STA (04:16)
[2018-04-01] MEDS: diphenhydrAMINE 50 MG/ML 1 ML VIAL IVP STA ×2 (04:49→05:10)
[2018-04-01 04:54] VITALS: BP 114/69; PULSE 94
== END 2018-04-01 05:40 | disposition home or self-care (01) ==
LOC: EC 23:38
DX: R10.11 Right upper quadrant pain (principal); R11.2 Nausea with vomiting, unspecified; J45.909 Unspecified asthma, uncomplicated; I20.9 Angina pectoris, unspecified; E11.9 Type 2 diabetes mellitus without complications; M79.7 Fibromyalgia; K21.9 Gastro-esophageal reflux disease without esophagitis; E07.9 Disorder of thyroid, unspecified; K58.9 Irritable bowel syndrome, unspecified; F41.9 Anxiety disorder, unspecified; F32.9 Major depressive disorder, single episode, unspecified; F43.10 Post-traumatic stress disorder, unspecified; Z87.19 Personal history of other diseases of the digestive system; Z90.49 Acquired absence of other specified parts of digestive tract; Z98.890 Other specified postprocedural states; Z79.3 Long term (current) use of hormonal contraceptives; Z79.84 Long term (current) use of oral hypoglycemic drugs; Z79.899 Other long term (current) drug therapy; Z88.0 Allergy status to penicillin; Z88.5 Allergy status to narcotic agent; Z88.6 Allergy status to analgesic agent; Z88.8 Allergy status to other drugs, medicaments and biological substances; Z91.013 Allergy to seafood; Z91.018 Allergy to other foods
CPT/HCPCS: 36415; 80053; 82150; 83690; 85025; 85610; 85730; 99284; 96374; 96375 ×3; 96376; 96361; J1200; J2765; J2405; J2270

== ENCOUNTER 2018-04-06 20:56 | Emergency (ER) | payer OTHER ==
[2018-04-06 21:09] VITALS: RESP 16; TEMP 98.5
[2018-04-06] MEDS ORDERED: SODIUM CHLORIDE 0.9% 1,000 ML IV STA (21:47)
[2018-04-06] MEDS ORDERED: MORPHINE SULFATE 4 MG/ML SYRINGE IVP STA ×2 (21:58→23:59)
[2018-04-06] MEDS ORDERED: ONDANSETRON 4 MG/2 ML VIAL IVP STA (21:59)
[2018-04-06 22:22] LABS: Basophils % (A) 0 %; Eosinophils # (A) 0.4 k/uL (0-0.7); Eosinophils % (A) 4 %; HCT 39.9 % (34.0-46.0); HGB 12.6 gm/dL (11.4-16.0); Lymphocytes # (A) 3.1 k/uL (1.0-4.8); Lymphocytes % (A) 28 %; MCH 27.5 pg (25.0-35.0); MCHC 31.5 g/dL (31.0-37.0); MCV 87.1 fL (80.0-100.0); Mean Platelet Volume 6.8; Monocytes # (A) 0.4 k/uL (0-1.0); Monocytes % (A) 4 %; Neutrophils # (A) 6.9 k/uL (1.3-7.7); Neutrophils % (A) 63 %; Platelet Count 344 k/uL (150-450); RBC 4.58 m/uL (3.80-5.40); RDW 13.3 % (11.5-15.5)
[2018-04-06 22:29] LABS: ALT 119 U/L (9-52); AST 130 U/L (14-36); Albumin 3.9 g/dL (3.5-5.0); Alkaline Phosphatase 74 U/L (38-126); Amylase 46 U/L (30-110); Anion Gap 10 mmol/L; Blood Urea Nitrogen 9 mg/dL (7-17); Calcium 9.8 mg/dL (8.4-10.2); Carbon Dioxide 22 mmol/L (22-30); Chloride 108 mmol/L (98-107); Glucose 106 mg/dL (74-99); Lipase 119 U/L (23-300); Sodium 140 mmol/L (137-145); Total Bilirubin 0.3 mg/dL (0.2-1.3); Total Protein 7.5 g/dL (6.3-8.2)
--- NOTE | 2018-04-06 22:37 | XR ---
EXAMINATION TYPE: XR KUB DATE OF EXAM: 04/06/2018 COMPARISON: 03/20/2018 HISTORY: Abdominal pain TECHNIQUE: 2 upright views FINDINGS: There is no sign of intestinal obstruction or pneumoperitoneum. Fecal pattern is normal. Th ere are clips from cholecystectomy. Lung bases are clear. There are no pathologic calcifications over the kidneys. IMPRESSION: Nonacute abdomen. No change.
[2018-04-06 22:44] LABS: Appearance,Urine Turbid (Clear); Bilirubin,Urine Negative (Negative); Blood,Urine Negative (Negative); Color,Urine Yellow; Glucose,Urine (UA) Negative (Negative); Ketones,Urine Negative (Negative); Leukocyte Esterase,Urine Moderate (Negative); Mucus,Urine Occasional /hpf; Nitrite,Urine Negative (Negative); PH, Urine 5.5 (5.0-8.0); Protein,Urine Trace (Negative); RBC,Urine 5 /hpf (0-5); Specific Gravity,Urine 1.017 (1.001-1.035); Squamous Epithelial Cell,Urine 102 /hpf (0-4); Urobilinogen,Urine <2.0 mg/dL (<2.0); WBC,Urine 28 /hpf (0-5)
[2018-04-06 23:01] LABS: C Reactive Protein 26.1 mg/L (<10.0)
--- NOTE | 2018-04-06 23:59 | ED ---
Abdominal Pain HPI - General Chief Complaint: Abdominal Pain Stated Complaint: Abd Pain Time Seen by Provider: 04/06/18 21:26 Source: patient Mode of arrival: ambulatory Limitations: no limitations - History of Present Illness Initial Comments: 22 years old female with history of liver cirrhosis complains about right upper quadrant pain today she saying pain is worse and she is quite nauseous she status post gallbladder surgery she status post appendectomy and she had a EGD and colonoscopy as well she has been seeing the GI specialist for her liver disease and now she is scheduled to go to [facility] denies any fever no chills - Related Data Home Medications Medication Instructions Recorded Confirmed Albuterol Inhaler [Ventolin Hfa 2 puff INHALATION RT-Q6H PRN 08/27/15 03/20/18 Inhaler] [place] Carbonate 900 mg PO HS 08/27/15 03/20/18 Omeprazole [PriLOSEC] 20 mg PO BID 08/27/15 03/20/18 Levothyroxine Sodium [Synthroid] 125 mcg PO QAM 01/06/17 03/20/18 FLUoxetine HCL [PROzac] 40 mg PO QAM 01/23/17 03/20/18 Ergocalciferol [Vitamin D2 50,000 unit PO BELL 02/13/17 03/20/18 (DRISDOL)] Montelukast [Singulair] 10 mg PO HS 05/21/17 03/20/18 cloNIDine HCL [Catapres] 0.2 mg PO HS 05/21/17 03/20/18 Potassium Chloride [K-Tab ER] 10 meq PO DAILY 09/14/17 03/20/18 metFORMIN HCL ER [Glucophage Xr] 1,000 mg PO HS 11/20/17 03/20/18 Imipramine HCl [Tofranil] 50 mg PO DAILY 01/10/18 03/20/18 Famotidine [Pepcid] 20 mg PO BID 02/04/18 03/20/18 Loratadine [Claritin] 10 mg PO DAILY 02/04/18 03/20/18 Norgestimate-Ethinyl Estradiol 1 tab PO DAILY 02/04/18 03/20/18 [Sprintec 28 Day Tablet] clonazePAM [KlonoPIN] 0.5 mg PO HS 02/04/18 03/20/18 Pioglitazone [Actos] 15 mg PO DAILY 03/20/18 03/20/18 Allergies Allergy/AdvReac Type Severity Reaction Status Date / Time fentanyl Allergy Rash/Hives Verified 04/06/18 21:09 grape Allergy Anaphylaxis Verified 04/06/18 21:09 latex Allergy Rash/Hives Verified 04/06/18 21:09 Penicillins Allergy Anaphylaxis Verified 04/06/18 21:09 ibuprofen [From Motrin] AdvReac GI Bleed Verified 04/06/18 21:09 prazosin AdvReac Nausea & Verified 04/06/18 21:09 Vomiting Seafood Allergy Anaphylaxis Uncoded 04/06/18 21:09 Review of Systems ROS Statement: Those systems with pertinent positive or pertinent negative responses have been documented in the HPI. ROS Other: All systems not noted in ROS Statement are negative. Past Medical History Past Medical History: Asthma, Chest Pain / Angina, Diabetes Mellitus, Fibromyalgia, GERD/Reflux, Liver Disease, Thyroid Disorder Additional Past Medical History / Comment(s): Hepatitis, Cirrhosis of the liver. Esophagalitis. Migraines. IBS. PART OF STOMACH NON-FUNCTIONING. BLOOD IN STOOL, VOMITING DAILY. History of Any Multi-Drug Resistant Organisms: None Reported Past Surgical History: Appendectomy, Cholecystectomy, Tonsillectomy Additional Past Surgical History / Comment(s): NASAL Septum repair. COLONOSCOPY. Past Anesthesia/Blood Transfusion Reactions: Motion Sickness Past Psychological History: Anxiety, Depression, PTSD Smoking Status: Never smoker Past Alcohol Use History: None Reported Past Drug Use History: None Reported - Past Family History Mother Family Medical History: No Reported History Father Family Medical History: Liver Disease Additional Family Medical History / Comment(s): cirrhosis, esophagus disease General Exam - General Exam Comments Initial Comments: General: The patient is awake and alert, in mild distress Skin: Skin is warm and dry and no rashes or lesions are noted. Eye: Pupils are equal, round and reactive to light, extra-ocular movements are intact; there is normal conjunctiva bilaterally. Ears, nose, mouth and throat: There are moist mucous membranes and no oral lesions. Neck: The neck is supple, there is no tenderness or JVD. Cardiovascular: There is a regular rate and rhythm. No murmur, rub or gallop is appreciated. Respiratory: To auscultation bilateral, no wheezing no rhonchi no distress respiratory leary noticed Gastrointestinal: Mildly tender in right upper quadrant area. Back: There is no tenderness to palpation in the midline. There is no obvious deformity. Musculoskeletal: Normal ROM, no tenderness, There is no pedal edema. There is no calf tenderness or swelling. No cords were appreciated. Neurological: CN II-XII intact, Cranial nerves III through XII are intact. There are no obvious motor or sensory deficits. Coordination appears grossly intact. Speech is normal. Psychiatric: Cooperative, appropriate mood & affect, normal judgment. Limitations: no limitations Course Vital Signs 04/06/18 21:06 Temperature 98.5 F Pulse Rate 116 H Respiratory 16 Rate Blood Pressure 98/70 Laboratory reviewed 12, AST and ALT are bit elevated comparing to her previous 2 visits, patient wants to hold off the CT of the abdomen considering radiation they were all set to go to [facility] to follow-up on her liver disease, patient agrees to come back if pain gets worse or if there are any fever or chills or nausea Medical Decision Making - Lab Data Result diagrams: 04/06/18 22:07 04/06/18 22:07 Lab Results 04/06/18 04/06/18 04/06/18 Range/Units 22:07 22:07 22:07 WBC 11.0 H (3.8-10.6) k/uL RBC 4.58 (3.80-5.40) m/uL Hgb 12.6 (11.4-16.0) gm/dL Hct 39.9 (34.0-46.0) % MCV 87.1 (80.0-100.0) fL MCH 27.5 (25.0-35.0) pg MCHC 31.5 (31.0-37.0) g/dL RDW 13.3 (11.5-15.5) % Plt Count 344 (150-450) k/uL Neutrophils % 63 % Lymphocytes % 28 % Monocytes % 4 % Eosinophils % 4 % Basophils % 0 % Neutrophils # 6.9 (1.3-7.7) k/uL Lymphocytes # 3.1 (1.0-4.8) k/uL Monocytes # 0.4 (0-1.0) k/uL Eosinophils # 0.4 (0-0.7) k/uL Basophils # 0.0 (0-0.2) k/uL Sodium 140 (137-145) mmol/L Potassium 4.0 (3.5-5.1) mmol/L Chloride 108 H (98-107) mmol/L Carbon Dioxide 22 (22-30) mmol/L Anion Gap 10 mmol/L BUN 9 (7-17) mg/dL Creatinine 0.70 (0.52-1.04) mg/dL Est GFR (CKD-EPI)AfAm >90 (>60 ml/min/1.73 sqM) Est GFR (CKD-EPI)NonAf >90 (>60 ml/min/1.73 sqM) Glucose 106 H (74-99) mg/dL Plasma Lactic Acid Tree 1.3 (0.7-2.0) mmol/L Calcium 9.8 (8.4-10.2) mg/dL Total Bilirubin 0.3 (0.2-1.3) mg/dL AST 130 H (14-36) U/L ALT 119 H (9-52) U/L Alkaline Phosphatase 74 (38-126) U/L C-Reactive Protein 26.1 H (<10.0) mg/L Total Protein 7.5 (6.3-8.2) g/dL Albumin 3.9 (3.5-5.0) g/dL Amylase 46 (30-110) U/L Lipase 119 (23-300) U/L Urine Color Urine Appearance (Clear) Urine pH (5.0-8.0) Ur Specific [place] (1.001-1.035) Urine Protein (Negative) Urine Glucose (UA) (Negative) Urine Ketones (Negative) Urine Blood (Negative) Urine Nitrite (Negative) Urine Bilirubin (Negative) Urine Urobilinogen (<2.0) mg/dL Ur Leukocyte Esterase (Negative) Urine RBC (0-5) /hpf Urine WBC (0-5) /hpf Ur Squamous Epith Cells (0-4) /hpf Urine Mucus (None) /hpf 04/06/18 Range/Units 22:23 WBC (3.8-10.6) k/uL RBC (3.80-5.40) m/uL Hgb (11.4-16.0) gm/dL Hct (34.0-46.0) % MCV (80.0-100.0) fL MCH (25.0-35.0) pg MCHC (31.0-37.0) g/dL RDW (11.5-15.5) % Plt Count (150-450) k/uL Neutrophils % % Lymphocytes % % Monocytes % % Eosinophils % % Basophils % % Neutrophils # (1.3-7.7) k/uL Lymphocytes # (1.0-4.8) k/uL Monocytes # (0-1.0) k/uL Eosinophils # (0-0.7) k/uL Basophils # (0-0.2) k/uL Sodium (137-145) mmol/L Potassium (3.5-5.1) mmol/L Chloride (98-107) mmol/L Carbon Dioxide (22-30) mmol/L Anion Gap mmol/L BUN (7-17) mg/dL Creatinine (0.52-1.04) mg/dL Est GFR (CKD-EPI)AfAm (>60 ml/min/1.73 sqM) Est GFR (CKD-EPI)NonAf (>60 ml/min/1.73 sqM) Glucose (74-99) mg/dL Plasma Lactic Acid [place] (0.7-2.0) mmol/L Calcium (8.4-10.2) mg/dL Total Bilirubin (0.2-1.3) mg/dL AST (14-36) U/L ALT (9-52) U/L Alkaline Phosphatase (38-126) U/L C-Reactive Protein (<10.0) mg/L Total Protein (6.3-8.2) g/dL Albumin (3.5-5.0) g/dL Amylase (30-110) U/L Lipase (23-300) U/L Urine Color Yellow Urine Appearance Turbid H (Clear) Urine pH 5.5 (5.0-8.0) Ur Specific [place] 1.017 (1.001-1.035) Urine Protein Trace H (Negative) Urine Glucose (UA) Negative (Negative) Urine Ketones Negative (Negative) Urine Blood Negative (Negative) Urine Nitrite Negative (Negative) Urine Bilirubin Negative (Negative) Urine Urobilinogen <2.0 (<2.0) mg/dL Ur Leukocyte Esterase Moderate H (Negative) Urine RBC 5 (0-5) /hpf Urine WBC 28 H (0-5) /hpf Ur Squamous Epith Cells 102 H (0-4) /hpf Urine Mucus Occasional H (None) /hpf Disposition Clinical Impression: Abdominal pain Disposition: HOME SELF-CARE Condition: Good Instructions: Abdominal Pain (ED) Is patient prescribed a controlled substance at d/c from ED?: No Referrals: Marysol Rose DO [Primary Care Provider] - 1-2 days
[2018-04-07 00:37] VITALS: BP 143/90; PULSE 104
== END 2018-04-07 00:37 | disposition home or self-care (01) ==
LOC: EC 20:56
DX: R10.11 Right upper quadrant pain (principal); R11.0 Nausea; J45.909 Unspecified asthma, uncomplicated; E11.9 Type 2 diabetes mellitus without complications; M79.7 Fibromyalgia; K21.9 Gastro-esophageal reflux disease without esophagitis; E07.9 Disorder of thyroid, unspecified; K58.9 Irritable bowel syndrome, unspecified; F32.9 Major depressive disorder, single episode, unspecified; F41.9 Anxiety disorder, unspecified; F43.10 Post-traumatic stress disorder, unspecified; Z79.3 Long term (current) use of hormonal contraceptives; Z79.84 Long term (current) use of oral hypoglycemic drugs; Z79.899 Other long term (current) drug therapy; Z91.018 Allergy to other foods; Z91.040 Latex allergy status; Z88.0 Allergy status to penicillin; Z91.013 Allergy to seafood; Z88.5 Allergy status to narcotic agent; Z88.6 Allergy status to analgesic agent; Z88.8 Allergy status to other drugs, medicaments and biological substances; Z90.49 Acquired absence of other specified parts of digestive tract
CPT/HCPCS: 36415; 80053; 82150; 83605; 83690; 85025; 86140; 81001; 74018; 99284; 96374; 96375; 96376; 96361; J2270 ×2; J2405

== ENCOUNTER 2018-04-08 01:01 | Emergency (ER) | payer OTHER ==
[2018-04-08] MEDS ORDERED: MORPHINE SULFATE 4 MG/ML SYRINGE IM STA (01:29)
[2018-04-08] MEDS ORDERED: ONDANSETRON ODT 4 MG TAB PO STA ×2 (01:29→01:54)
--- NOTE | 2018-04-08 01:41 | ED ---
General Adult HPI - General Chief complaint: Abdominal Pain Stated complaint: abd pain Time Seen by Provider: 04/08/18 01:22 Source: patient, RN notes reviewed, old records reviewed Mode of arrival: ambulatory Limitations: no limitations - History of Present Illness Initial comments: Patient 22-year-old female with significant past medical history for liver cirrhosis, presented to the emergency room today with a chief complaint of increased abdominal pain on the side of the abdomen. Patient does admit that this pain is consistent with chronic pain that she's been expressing in the abdomen. Does admit that she was seen here last night. States that she's been trying to follow up with GI specialist. States that she does have an appointment with [facility] on May 05. Patient states that she was doing well most the day control try to go to bed tonight started having increased pain. States symptoms are consistent with chronic abdominal pain that she's had in the past. Patient denies any recent fever, chills, shortness of breath, chest pain, back pain, headaches or visual changes, or any other complaints. - Related Data Home Medications Medication Instructions Recorded Confirmed Albuterol Inhaler [Ventolin Hfa 2 puff INHALATION RT-Q6H PRN 08/27/15 03/20/18 Inhaler] [place] Carbonate 900 mg PO HS 08/27/15 03/20/18 Omeprazole [PriLOSEC] 20 mg PO BID 08/27/15 03/20/18 Levothyroxine Sodium [Synthroid] 125 mcg PO QAM 01/06/17 03/20/18 FLUoxetine HCL [PROzac] 40 mg PO QAM 01/23/17 03/20/18 Ergocalciferol [Vitamin D2 50,000 unit PO BELL 02/13/17 03/20/18 (DRISDOL)] Montelukast [Singulair] 10 mg PO HS 05/21/17 03/20/18 cloNIDine HCL [Catapres] 0.2 mg PO HS 05/21/17 03/20/18 Potassium Chloride [K-Tab ER] 10 meq PO DAILY 09/14/17 03/20/18 metFORMIN HCL ER [Glucophage Xr] 1,000 mg PO HS 11/20/17 03/20/18 Imipramine HCl [Tofranil] 50 mg PO DAILY 01/10/18 03/20/18 Famotidine [Pepcid] 20 mg PO BID 02/04/18 03/20/18 Loratadine [Claritin] 10 mg PO DAILY 02/04/18 03/20/18 Norgestimate-Ethinyl Estradiol 1 tab PO DAILY 02/04/18 03/20/18 [Sprintec 28 Day Tablet] clonazePAM [KlonoPIN] 0.5 mg PO HS 02/04/18 03/20/18 Pioglitazone [Actos] 15 mg PO DAILY 03/20/18 03/20/18 Allergies Allergy/AdvReac Type Severity Reaction Status Date / Time fentanyl Allergy Rash/Hives Verified 04/08/18 01:19 grape Allergy Anaphylaxis Verified 04/08/18 01:19 latex Allergy Rash/Hives Verified 04/08/18 01:19 Penicillins Allergy Anaphylaxis Verified 04/08/18 01:19 ibuprofen [From Motrin] AdvReac GI Bleed Verified 04/08/18 01:19 prazosin AdvReac Nausea & Verified 04/08/18 01:19 Vomiting Seafood Allergy Anaphylaxis Uncoded 04/08/18 01:19 Review of Systems ROS Statement: Those systems with pertinent positive or pertinent negative responses have been documented in the HPI. ROS Other: All systems not noted in ROS Statement are negative. Past Medical History Past Medical History: Asthma, Chest Pain / Angina, Diabetes Mellitus, Fibromyalgia, GERD/Reflux, Liver Disease, Thyroid Disorder Additional Past Medical History / Comment(s): Hepatitis, Cirrhosis of the liver. Esophagalitis. Migraines. IBS. PART OF STOMACH NON-FUNCTIONING. BLOOD IN STOOL, VOMITING DAILY., History of Any Multi-Drug Resistant Organisms: None Reported Past Surgical History: Appendectomy, Cholecystectomy, Tonsillectomy Additional Past Surgical History / Comment(s): NASAL Septum repair. COLONOSCOPY., Past Anesthesia/Blood Transfusion Reactions: Motion Sickness Past Psychological History: Anxiety, Depression, PTSD Smoking Status: Never smoker Past Alcohol Use History: None Reported Past Drug Use History: None Reported - Past Family History Mother Family Medical History: No Reported History Father Family Medical History: Liver Disease Additional Family Medical History / Comment(s): cirrhosis, esophagus disease General Exam - General Exam Comments Initial Comments: General: The patient is awake and alert, in no distress, and does not appear acutely ill. Eye: Pupils are equal, round and reactive to light, extra-ocular movements are intact. No nystagmus. There is normal conjunctiva bilaterally. No signs of icterus. Ears, nose, mouth and throat: There are moist mucous membranes and no oral lesions. Neck: The neck is supple, there is no tenderness or JVD. Cardiovascular: There is a regular rate and rhythm. No murmur, rub or gallop is appreciated. Respiratory: Lungs are clear to auscultation, respirations are non-labored, breath sounds are equal. No wheezes, stridor, rales, or rhonchi. Gastrointestinal: Tender palpation on the right side of the abdomen. No rebound , guarding, CVA tenderness. Musculoskeletal: Normal ROM, no tenderness. Strength 5/5. Sensation intact. Pulses equal bilaterally 2+. Neurological: A&O x 3. CN II-XII intact, There are no obvious motor or sensory deficits. Coordination appears grossly intact. Speech is normal. Skin: Skin is warm and dry and no rashes or lesions are noted. Psychiatric: Cooperative, appropriate mood & affect, normal judgment. Limitations: no limitations Course Vital Signs 04/08/18 01:15 Temperature 98.4 F Pulse Rate 120 H Respiratory 18 Rate Blood Pressure 121/84 O2 Sat by Pulse 97 Oximetry Medical Decision Making - Medical Decision Making Patient's blood work from last night was reviewed show mild elevation of liver enzymes. Patient does admit that this pain is consistent with abdominal pain that she's had in the past. Options were discussed with patient about repeating the blood work tonight. Patient states her reason for coming was to try to get something for pain to help her sleep. Patient has declined blood work. Patient will be discharged advised follow-up the family doctor tomorrow morning. Disposition Clinical Impression: Chronic abdominal pain, Liver cirrhosis Disposition: HOME SELF-CARE Condition: Good Instructions: Abdominal Pain (ED) Additional Instructions: Please follow-up with family doctor in the morning as discussed. Please return to emergency room if the symptoms increase or worsen or for any other concerns. Is patient prescribed a controlled substance at d/c from ED?: No Referrals: Marysol Rose DO [Primary Care Provider] - 1-2 days Time of Disposition: 01:40
[2018-04-08 01:59] VITALS: BP 133/74; PULSE 89; RESP 16; TEMP 98.5
== END 2018-04-08 02:04 | disposition home or self-care (01) ==
LOC: EC 01:01
DX: K74.60 Unspecified cirrhosis of liver (principal); J45.909 Unspecified asthma, uncomplicated; E11.9 Type 2 diabetes mellitus without complications; M79.7 Fibromyalgia; K21.9 Gastro-esophageal reflux disease without esophagitis; E07.9 Disorder of thyroid, unspecified; F41.9 Anxiety disorder, unspecified; F32.9 Major depressive disorder, single episode, unspecified; F43.10 Post-traumatic stress disorder, unspecified; Z90.49 Acquired absence of other specified parts of digestive tract; Z98.890 Other specified postprocedural states; Z79.3 Long term (current) use of hormonal contraceptives; Z79.84 Long term (current) use of oral hypoglycemic drugs; Z79.899 Other long term (current) drug therapy; Z88.0 Allergy status to penicillin; Z88.6 Allergy status to analgesic agent; Z88.8 Allergy status to other drugs, medicaments and biological substances; Z91.013 Allergy to seafood; Z91.018 Allergy to other foods; Z91.040 Latex allergy status
CPT/HCPCS: 99284; 96372; J2270

== ENCOUNTER 2018-04-11 21:29 | Emergency (ER) | payer OTHER ==
[2018-04-11 22:05] VITALS: RESP 18
[2018-04-11] MEDS ORDERED: ONDANSETRON 4 MG/2 ML VIAL IVP STA (22:07)
[2018-04-11] MEDS ORDERED: SODIUM CHLORIDE 0.9% 1,000 ML IV ONE (22:07)
[2018-04-11] MEDS ORDERED: PANTOPRAZOLE 40 MG/10 ML VIAL IVP STA (22:08)
[2018-04-11] MEDS ORDERED: MORPHINE SULFATE 4 MG/ML SYRINGE IVP STA (22:33)
[2018-04-11 22:59] LABS: Basophils % (A) 0 %; Eosinophils # (A) 0.5 k/uL (0-0.7); Eosinophils % (A) 4 %; HCT 42.6 % (34.0-46.0); HGB 13.3 gm/dL (11.4-16.0); Lymphocytes # (A) 3.8 k/uL (1.0-4.8); Lymphocytes % (A) 28 %; MCH 27.2 pg (25.0-35.0); MCHC 31.2 g/dL (31.0-37.0); MCV 87.3 fL (80.0-100.0); Mean Platelet Volume 7.5; Monocytes # (A) 0.5 k/uL (0-1.0); Monocytes % (A) 3 %; Neutrophils # (A) 8.6 k/uL (1.3-7.7); Neutrophils % (A) 63 %; Platelet Count 379 k/uL (150-450); RBC 4.88 m/uL (3.80-5.40); RDW 13.4 % (11.5-15.5); WBC 13.6 k/uL (3.8-10.6)
[2018-04-11 23:01] LABS: Prothrombin Time 9.8 sec (9.0-12.0)
--- NOTE | 2018-04-11 23:02 | ED ---
Abdominal Pain HPI - General Chief Complaint: Abdominal Pain Stated Complaint: Abd pain Time Seen by Provider: 04/11/18 22:06 Source: patient Mode of arrival: ambulatory Limitations: no limitations - History of Present Illness Initial Comments: 22-year-old female presenting with worsening chronic right upper quadrant pain. Patient states she's been the ER 2 times this past week for the pain. 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 Patient's mother is at bedside he states that they've appointment with [facility] hepatology on June 05 and the patient's primary care physician this . Patient states this pain is the same as her normal exacerbation of her liver pain. She denies any chest pain, shortness of breath, fevers chills. She also had 3 episodes of painless bright red blood per rectum today which she states she has intermittently at baseline. She had a EGD and colonoscopy 5 months prior which showed no acute process. She denies urinary symptoms, chest pain, shortness of breath. - Related Data Home Medications Medication Instructions Recorded Confirmed Albuterol Inhaler [Ventolin Hfa 2 puff INHALATION RT-Q6H PRN 08/27/15 04/11/18 Inhaler] [place] Carbonate 900 mg PO HS 08/27/15 04/11/18 Omeprazole [PriLOSEC] 20 mg PO BID 08/27/15 04/11/18 Levothyroxine Sodium [Synthroid] 125 mcg PO QAM 01/06/17 04/11/18 Ergocalciferol [Vitamin D2 50,000 unit PO BELL 02/13/17 04/11/18 (DRISDOL)] Montelukast [Singulair] 10 mg PO HS 05/21/17 04/11/18 cloNIDine HCL [Catapres] 0.2 mg PO HS 05/21/17 04/11/18 Potassium Chloride [K-Tab ER] 10 meq PO DAILY 09/14/17 04/11/18 Famotidine [Pepcid] 20 mg PO BID 02/04/18 04/11/18 Loratadine [Claritin] 10 mg PO DAILY 02/04/18 04/11/18 Norgestimate-Ethinyl Estradiol 1 tab PO DAILY 02/04/18 04/11/18 [Sprintec 28 Day Tablet] Pioglitazone [Actos] 15 mg PO DAILY 03/20/18 04/11/18 Previous Rx's Medication Instructions Recorded Metoclopramide HCl [Reglan] 10 mg PO Q8HR PRN #20 tablet 04/12/18 Allergies Allergy/AdvReac Type Severity Reaction Status Date / Time fentanyl Allergy Rash/Hives Verified 04/11/18 22:12 grape Allergy Anaphylaxis Verified 04/11/18 22:12 latex Allergy Rash/Hives Verified 04/11/18 22:12 Penicillins Allergy Anaphylaxis Verified 04/11/18 22:12 ibuprofen [From Motrin] AdvReac GI Bleed Verified 04/11/18 22:12 prazosin AdvReac Nausea & Verified 04/11/18 22:12 Vomiting Seafood Allergy Anaphylaxis Uncoded 04/11/18 22:05 Review of Systems ROS Statement: Those systems with pertinent positive or pertinent negative responses have been documented in the HPI. Review of Systems Constitutional: Denies fever, chills Eyes: Denies change in vision, Denies pain Ears, nose, mouth, throat: Denies headaches, Denies sore throat Cardiovascular: Denies chest pain. Denies palpitations Respiratory: Denies shortness of breath, Denies cough Gastrointestinal: Positive abdominal pain. Denies nausea, vomiting, diarrhea. Positive rectal bleeding Genitourinary: Denies hematuria, Denies infections Musculoskeletal: Denies pain, Denies swelling Integumentary: Denies rash Neurological: Denies headache, focal weakness, focal numbness Psychiatric: Denies anxiety, Denies depression Hematologic/Lymphatic: Denies easy bleeding or bruising ROS Other: All systems not noted in ROS Statement are negative. Past Medical History Past Medical History: Asthma, Chest Pain / Angina, Diabetes Mellitus, Fibromyalgia, GERD/Reflux, Liver Disease, Thyroid Disorder Additional Past Medical History / Comment(s): Hepatitis, Cirrhosis of the liver. Esophagalitis. Migraines. IBS. PART OF STOMACH NON-FUNCTIONING. BLOOD IN STOOL, VOMITING DAILY., History of Any Multi-Drug Resistant Organisms: None Reported Past Surgical History: Appendectomy, Cholecystectomy, Tonsillectomy Additional Past Surgical History / Comment(s): NASAL Septum repair. COLONOSCOPY., Past Anesthesia/Blood Transfusion Reactions: Motion Sickness Past Psychological History: Anxiety, Depression, PTSD Smoking Status: Never smoker Past Alcohol Use History: None Reported Past Drug Use History: None Reported - Past Family History Mother Family Medical History: No Reported History Father Family Medical History: Liver Disease Additional Family Medical History / Comment(s): cirrhosis, esophagus disease General Exam - General Exam Comments Initial Comments: General: Awake, alert, No acute Distress HENT: Normocephalic. Atraumatic Eyes: PERRL. EOMI. No scleral icterus. No injected conjunctiva Neck: Full ROM Chest/Lungs: Clear to auscultation bilaterally. No wheezing, rhonchi, or rales Cardiac: Regular rhythm. Sinus tachycardia No murmurs or rubs Abdomen/GI: [Soft, nondistended. Right upper quadrant tenderness to palpation. No fluid wave. No masses. No rebound, guarding, or rigidity. Musculoskeletal: Full ROM Skin: Warm, dry, intact Neurologic: A/Ox3, no weakness, no sensory deficit, no abdnormal gait, no coordination deficit Limitations: no limitations Course Vital Signs 04/11/18 04/12/18 22:02 00:03 Temperature 98.2 F Pulse Rate 127 H 95 Respiratory 18 18 Rate Blood Pressure 151/79 129/86 O2 Sat by Pulse 97 99 Oximetry Medical Decision Making - Medical Decision Making 22-year-old female presenting with worsening chronic abdominal pain. Initial exam the patient is awake, alert, no acute distress. She is tachycardic but vital signs are otherwise stable. She denies any chest pain or shortness of breath. Patient was given morphine and Zofran prior to her EKG. Patient's EKG showed sinus rhythm with a prolonged QT at a rate of 89 bpm. QT 398 QTC 44. Discussed the patient with prolonged QT interval instructed her to stop taking her Zofran at home. Patient's ultrasound of her liver showed diffuse liver disease but otherwise was negative. She had a mild leukocytosis and mild elevation of her liver enzymes but her INR was within normal limits. Patient had no ascites and exam. She denies any urinary symptoms or cough. His mother is a follow-up on it with her primary care physician on . He also has an appointment with a liver specialist out of [facility] next month. Patient's hemoglobin was stable and she declined rectal exam. No further emergent workup indicated. The patient was given return to ED instructions. They were instructed to follow up with their primary care provider. Stable for discharge at this time. - Lab Data Result diagrams: 04/11/18 22:18 04/11/18 22:18 Lab Results 04/11/18 04/11/18 04/11/18 Range/Units 22:18 22:18 22:18 WBC 13.6 H (3.8-10.6) k/uL RBC 4.88 (3.80-5.40) m/uL Hgb 13.3 (11.4-16.0) gm/dL Hct 42.6 (34.0-46.0) % MCV 87.3 (80.0-100.0) fL MCH 27.2 (25.0-35.0) pg MCHC 31.2 (31.0-37.0) g/dL RDW 13.4 (11.5-15.5) % Plt Count 379 (150-450) k/uL Neutrophils % 63 % Lymphocytes % 28 % Monocytes % 3 % Eosinophils % 4 % Basophils % 0 % Neutrophils # 8.6 H (1.3-7.7) k/uL Lymphocytes # 3.8 (1.0-4.8) k/uL Monocytes # 0.5 (0-1.0) k/uL Eosinophils # 0.5 (0-0.7) k/uL Basophils # 0.0 (0-0.2) k/uL PT (9.0-12.0) sec INR (<1.2) Sodium 140 (137-145) mmol/L Potassium 4.8 (3.5-5.1) mmol/L Chloride 107 (98-107) mmol/L Carbon Dioxide 21 L (22-30) mmol/L Anion Gap 12 mmol/L BUN 10 (7-17) mg/dL Creatinine 0.70 (0.52-1.04) mg/dL Est GFR (CKD-EPI)AfAm >90 (>60 ml/min/1.73 sqM) Est GFR (CKD-EPI)NonAf >90 (>60 ml/min/1.73 sqM) Glucose 101 H (74-99) mg/dL Calcium 9.9 (8.4-10.2) mg/dL Total Bilirubin 0.2 (0.2-1.3) mg/dL Conjugated Bilirubin 0.0 (0.0-0.3) mg/dL Unconjugated Bilirubin 0.0 (0.0-1.1) mg/dL Delta Bilirubin 0.2 (0.0-0.2) mg/dL AST 139 H (14-36) U/L ALT 115 H (9-52) U/L Alkaline Phosphatase 78 (38-126) U/L Troponin I (0.000-0.034) ng/mL Total Protein 7.8 (6.3-8.2) g/dL Albumin 4.2 (3.5-5.0) g/dL Lipase 92 (23-300) U/L HCG, Qual Not Detected Urine Opiates Screen (NotDetected) Ur Oxycodone Screen (NotDetected) Urine Methadone Screen (NotDetected) Ur Propoxyphene Screen (NotDetected) Ur Barbiturates Screen (NotDetected) U Tricyclic Antidepress (NotDetected) Ur Phencyclidine Scrn (NotDetected) Ur Amphetamines Screen (NotDetected) U Methamphetamines Scrn (NotDetected) U Benzodiazepines Scrn (NotDetected) Urine Cocaine Screen (NotDetected) U Marijuana (THC) Screen (NotDetected) Blood Type O Positive Blood Type Recheck No 04/11/18 04/11/18 04/11/18 Range/Units 22:18 22:18 22:51 WBC (3.8-10.6) k/uL RBC (3.80-5.40) m/uL Hgb (11.4-16.0) gm/dL Hct (34.0-46.0) % MCV (80.0-100.0) fL MCH (25.0-35.0) pg MCHC (31.0-37.0) g/dL RDW (11.5-15.5) % Plt Count (150-450) k/uL Neutrophils % % Lymphocytes % % Monocytes % % Eosinophils % % Basophils % % Neutrophils # (1.3-7.7) k/uL Lymphocytes # (1.0-4.8) k/uL Monocytes # (0-1.0) k/uL Eosinophils # (0-0.7) k/uL Basophils # (0-0.2) k/uL PT 9.8 (9.0-12.0) sec INR 1.0 (<1.2) Sodium (137-145) mmol/L Potassium (3.5-5.1) mmol/L Chloride (98-107) mmol/L Carbon Dioxide (22-30) mmol/L Anion Gap mmol/L BUN (7-17) mg/dL Creatinine (0.52-1.04) mg/dL Est GFR (CKD-EPI)AfAm (>60 ml/min/1.73 sqM) Est GFR (CKD-EPI)NonAf (>60 ml/min/1.73 sqM) Glucose (74-99) mg/dL Calcium (8.4-10.2) mg/dL Total Bilirubin (0.2-1.3) mg/dL Conjugated Bilirubin (0.0-0.3) mg/dL Unconjugated Bilirubin (0.0-1.1) mg/dL Delta Bilirubin (0.0-0.2) mg/dL AST (14-36) U/L ALT (9-52) U/L Alkaline Phosphatase (38-126) U/L Troponin I <0.012 (0.000-0.034) ng/mL Total Protein (6.3-8.2) g/dL Albumin (3.5-5.0) g/dL Lipase (23-300) U/L HCG, Qual Urine Opiates Screen Detected H (NotDetected) Ur Oxycodone Screen Not Detected (NotDetected) Urine Methadone Screen Not Detected (NotDetected) Ur Propoxyphene Screen Not Detected (NotDetected) Ur Barbiturates Screen Not Detected (NotDetected) U Tricyclic Antidepress Detected H (NotDetected) Ur Phencyclidine Scrn Not Detected (NotDetected) Ur Amphetamines Screen Not Detected (NotDetected) U Methamphetamines Scrn Not Detected (NotDetected) U Benzodiazepines Scrn Not Detected (NotDetected) Urine Cocaine Screen Not Detected (NotDetected) U Marijuana (THC) Screen Not Detected (NotDetected) Blood Type Blood Type Recheck Disposition Clinical Impression: Elevated liver enzymes, Continuous RUQ abdominal pain, Leukocytosis, Prolonged Q-T interval on ECG Disposition: HOME SELF-CARE Condition: Good Instructions: Cirrhosis (ED), Abdominal Pain (ED) Additional Instructions: Stop taking Zofran Prescriptions: Metoclopramide HCl [Reglan] 10 mg PO Q8HR PRN #20 tablet PRN Reason: Nausea Is patient prescribed a controlled substance at d/c from ED?: No Referrals: Marysol Rose DO [Primary Care Provider] - 1-2 days
[2018-04-11 23:07] LABS: Amphetamine Screen,Urine Not Detected (NotDetected); Barbiturate Screen,Urine Not Detected (NotDetected); Benzodiazepines Screen,Urine Not Detected (NotDetected); Cocaine Screen,Urine Not Detected (NotDetected); Methadone Screen, Urine Not Detected (NotDetected); Opiate Screen,Urine Detected (NotDetected); Oxycodone Screen, Urine Not Detected (NotDetected); Phencyclidine Screen,Urine Not Detected (NotDetected); Tricyclic Antidepressant,Urine Detected (NotDetected); Urn Cannabinoid Scrn Not Detected (NotDetected)
[2018-04-11 23:22] LABS: HCG,Qualitative Serum Not Detected
[2018-04-11 23:23] LABS: ALT 115 U/L (9-52); AST 139 U/L (14-36); Albumin 4.2 g/dL (3.5-5.0); Alkaline Phosphatase 78 U/L (38-126); Anion Gap 12 mmol/L; Bilirubin, Delta 0.2 mg/dL (0.0-0.2); Blood Urea Nitrogen 10 mg/dL (7-17); Calcium 9.9 mg/dL (8.4-10.2); Carbon Dioxide 21 mmol/L (22-30); Chloride 107 mmol/L (98-107); Glucose 101 mg/dL (74-99); Lipase 92 U/L (23-300); Potassium 4.8 mmol/L (3.5-5.1); Sodium 140 mmol/L (137-145); Total Bilirubin 0.2 mg/dL (0.2-1.3); Total Protein 7.8 g/dL (6.3-8.2)
--- NOTE | 2018-04-11 23:56 | US ---
EXAMINATION TYPE: US liver DATE OF EXAM: 04/11/2018 COMPARISON: CT 2017, US 2017 CLINICAL HISTORY: Pain. Intermittent abdomen pain x 5 years, history of cholecystectomy EXAM MEASUREMENTS: Liver Length: 22.6 cm Gallbladder Wall: surgically absent CBD: 0.5 cm Right Kidney: 12.2 x 3.7 x 5.0 cm Difficult and limited study due to patient body habitus Pancreas: visualized portions appear hyperechoic, limited by overlying midline bowel gas Liver: enlarged, increased echogenicity, heterogeneous, attenuating Gallbladder: surgically absent Evidence for sonographic Chapa's sign: yes CBD: visualized portions wnl, limited by overlying bowel gas Right Kidney: wnl IMPRESSION: The liver is echogenic suggestive of fatty infiltration. No dilated ducts.
[2018-04-12] MEDS ORDERED: MORPHINE SULFATE 4 MG/ML SYRINGE IVP STA (00:55)
[2018-04-12 01:32] VITALS: BP 134/92; PULSE 96; TEMP 98.9
== END 2018-04-12 01:35 | disposition home or self-care (01) ==
LOC: EC 21:29
DX: I45.81 Long QT syndrome (principal); R74.8 Abnormal levels of other serum enzymes; R10.11 Right upper quadrant pain; D72.829 Elevated white blood cell count, unspecified; J45.909 Unspecified asthma, uncomplicated; E11.9 Type 2 diabetes mellitus without complications; K21.9 Gastro-esophageal reflux disease without esophagitis; E07.9 Disorder of thyroid, unspecified; Z90.49 Acquired absence of other specified parts of digestive tract; Z98.890 Other specified postprocedural states; Z79.3 Long term (current) use of hormonal contraceptives; Z79.84 Long term (current) use of oral hypoglycemic drugs; Z79.899 Other long term (current) drug therapy; Z88.0 Allergy status to penicillin; Z88.5 Allergy status to narcotic agent; Z88.6 Allergy status to analgesic agent; Z88.8 Allergy status to other drugs, medicaments and biological substances; Z91.013 Allergy to seafood; Z91.018 Allergy to other foods; Z91.040 Latex allergy status
CPT/HCPCS: 36415; 93005; 86900; 86901; 80048; 80076; 83690; 84484; 85025; 85610; 84703; 80306; 76705; 99284; 96374; 96375 ×2; 96376; 96361; J2270 ×2; J2405; C9113

== ENCOUNTER 2018-04-13 22:06 | Emergency (ER) | payer OTHER ==
[2018-04-13] MEDS ORDERED: diphenhydrAMINE 50 MG/ML 1 ML VIAL IVP STA (23:23)
[2018-04-13] MEDS ORDERED: MORPHINE SULFATE 4 MG/ML SYRINGE IV STA (23:23)
[2018-04-13] MEDS ORDERED: SODIUM CHLORIDE 0.9% 500 ML IV STA (23:23)
[2018-04-14 00:07] LABS: Basophils % (A) 0 %; Eosinophils # (A) 0.4 k/uL (0-0.7); Eosinophils % (A) 4 %; HCT 38.6 % (34.0-46.0); HGB 12.4 gm/dL (11.4-16.0); Lymphocytes # (A) 2.1 k/uL (1.0-4.8); Lymphocytes % (A) 21 %; MCH 27.8 pg (25.0-35.0); MCHC 32.1 g/dL (31.0-37.0); MCV 86.8 fL (80.0-100.0); Mean Platelet Volume 6.8; Monocytes # (A) 0.4 k/uL (0-1.0); Monocytes % (A) 4 %; Neutrophils # (A) 7.1 k/uL (1.3-7.7); Neutrophils % (A) 70 %; Platelet Count 318 k/uL (150-450); RBC 4.45 m/uL (3.80-5.40); RDW 13.3 % (11.5-15.5); WBC 10.1 k/uL (3.8-10.6)
[2018-04-14 00:21] LABS: ALT 169 U/L (9-52); AST 240 U/L (14-36); Albumin 4.1 g/dL (3.5-5.0); Alkaline Phosphatase 72 U/L (38-126); Anion Gap 9 mmol/L; Blood Urea Nitrogen 8 mg/dL (7-17); Carbon Dioxide 27 mmol/L (22-30); Chloride 105 mmol/L (98-107); Glucose 104 mg/dL (74-99); Potassium 4.3 mmol/L (3.5-5.1); Sodium 141 mmol/L (137-145); Total Bilirubin 0.3 mg/dL (0.2-1.3); Total Protein 7.6 g/dL (6.3-8.2)
--- NOTE | 2018-04-14 00:30 | ED ---
Allergic Reaction HPI - General Chief complaint: Allergic Reaction Stated complaint: anxiety Time Seen by Provider: 04/13/18 22:53 Source: patient Mode of arrival: ambulatory Limitations: no limitations - History of Present Illness Initial Comments: This patient is 22-year-old woman with history of nonalcoholic fatty liver disease. She has 2 complaints today, one is that she is having a flareup of her chronic right upper quadrant pain. The second complaint is that she took some Reglan for the nausea that she has and now she feels like she can't stand still, like she was coming out of her skin. She believes she may be ALLERGIC. The patient denies any rash or itching. She is not having any swelling of the lips and tongue or throat. MD Complaint: allergic reaction, other (Abdominal pain) -: hour(s) Exposure: medication Severity: moderate Treatment Prior to Arrival: none - Related Data Home Medications Medication Instructions Recorded Confirmed Albuterol Inhaler [Ventolin Hfa 2 puff INHALATION RT-Q6H PRN 08/27/15 04/11/18 Inhaler] [place] Carbonate 900 mg PO HS 08/27/15 04/11/18 Omeprazole [PriLOSEC] 20 mg PO BID 08/27/15 04/11/18 Levothyroxine Sodium [Synthroid] 125 mcg PO QAM 01/06/17 04/11/18 Ergocalciferol [Vitamin D2 50,000 unit PO BELL 02/13/17 04/11/18 (DRISDOL)] Montelukast [Singulair] 10 mg PO HS 05/21/17 04/11/18 cloNIDine HCL [Catapres] 0.2 mg PO HS 05/21/17 04/11/18 Potassium Chloride [K-Tab ER] 10 meq PO DAILY 09/14/17 04/11/18 Famotidine [Pepcid] 20 mg PO BID 02/04/18 04/11/18 Loratadine [Claritin] 10 mg PO DAILY 02/04/18 04/11/18 Norgestimate-Ethinyl Estradiol 1 tab PO DAILY 02/04/18 04/11/18 [Sprintec 28 Day Tablet] Pioglitazone [Actos] 15 mg PO DAILY 03/20/18 04/11/18 Previous Rx's Medication Instructions Recorded Metoclopramide HCl [Reglan] 10 mg PO Q8HR PRN #20 tablet 04/12/18 Allergies Allergy/AdvReac Type Severity Reaction Status Date / Time fentanyl Allergy Rash/Hives Verified 04/11/18 22:12 grape Allergy Anaphylaxis Verified 04/11/18 22:12 latex Allergy Rash/Hives Verified 04/11/18 22:12 metoclopramide [From Reglan] Allergy Unknown Verified 04/13/18 22:19 ondansetron [From Zofran] Allergy Unknown Verified 04/13/18 22:19 Penicillins Allergy Anaphylaxis Verified 04/11/18 22:12 ibuprofen [From Motrin] AdvReac GI Bleed Verified 04/11/18 22:12 prazosin AdvReac Nausea & Verified 04/11/18 22:12 Vomiting Seafood Allergy Anaphylaxis Uncoded 04/11/18 22:05 Review of Systems ROS Statement: Those systems with pertinent positive or pertinent negative responses have been documented in the HPI. ROS Other: All systems not noted in ROS Statement are negative. Constitutional: Denies: fever, chills, weakness Respiratory: Denies: cough, dyspnea Cardiovascular: Denies: chest pain, palpitations Gastrointestinal: Reports: as per HPI, abdominal pain, nausea Skin: Denies: rash Past Medical History Past Medical History: Asthma, Chest Pain / Angina, Diabetes Mellitus, Fibromyalgia, GERD/Reflux, Liver Disease, Thyroid Disorder Additional Past Medical History / Comment(s): Hepatitis, Cirrhosis of the liver. Esophagalitis. Migraines. IBS. PART OF STOMACH NON-FUNCTIONING. BLOOD IN STOOL, VOMITING DAILY., History of Any Multi-Drug Resistant Organisms: None Reported Past Surgical History: Appendectomy, Cholecystectomy, Tonsillectomy Additional Past Surgical History / Comment(s): NASAL Septum repair. COLONOSCOPY., Past Anesthesia/Blood Transfusion Reactions: Motion Sickness Past Psychological History: Anxiety, Depression, PTSD Smoking Status: Never smoker Past Alcohol Use History: None Reported Past Drug Use History: None Reported - Past Family History Mother Family Medical History: No Reported History Father Family Medical History: Liver Disease Additional Family Medical History / Comment(s): cirrhosis, esophagus disease General Exam Limitations: no limitations General appearance: alert, in no apparent distress, obese Head exam: Present: atraumatic, normocephalic ENT exam: Present: normal oropharynx Respiratory exam: Present: normal lung sounds bilaterally. Absent: respiratory distress, wheezes, rales, rhonchi, stridor Cardiovascular Exam: Present: normal rhythm, tachycardia, normal heart sounds. Absent: systolic murmur, diastolic murmur, rubs, gallop GI/Abdominal exam: Present: soft. Absent: distended, tenderness, guarding, rebound, rigid Extremities exam: Present: normal inspection, normal capillary refill. Absent: pedal edema, calf tenderness Neurological exam: Present: alert Skin exam: Present: warm, dry, intact, normal color. Absent: rash Course Vital Signs 04/13/18 04/14/18 22:14 00:58 Temperature 98.1 F 99 F Pulse Rate 138 H 102 H Respiratory 20 18 Rate Blood Pressure 114/83 117/72 O2 Sat by Pulse 97 98 Oximetry Medical Decision Making - Lab Data Result diagrams: 04/13/18 23:44 04/13/18 23:44 Lab Results 04/13/18 04/13/18 04/13/18 Range/Units 23:44 23:44 23:44 WBC 10.1 (3.8-10.6) k/uL RBC 4.45 (3.80-5.40) m/uL Hgb 12.4 (11.4-16.0) gm/dL Hct 38.6 (34.0-46.0) % MCV 86.8 (80.0-100.0) fL MCH 27.8 (25.0-35.0) pg MCHC 32.1 (31.0-37.0) g/dL RDW 13.3 (11.5-15.5) % Plt Count 318 (150-450) k/uL Neutrophils % 70 % Lymphocytes % 21 % Monocytes % 4 % Eosinophils % 4 % Basophils % 0 % Neutrophils # 7.1 (1.3-7.7) k/uL Lymphocytes # 2.1 (1.0-4.8) k/uL Monocytes # 0.4 (0-1.0) k/uL Eosinophils # 0.4 (0-0.7) k/uL Basophils # 0.0 (0-0.2) k/uL Sodium 141 (137-145) mmol/L Potassium 4.3 (3.5-5.1) mmol/L Chloride 105 (98-107) mmol/L Carbon Dioxide 27 (22-30) mmol/L Anion Gap 9 mmol/L BUN 8 (7-17) mg/dL Creatinine 0.60 (0.52-1.04) mg/dL Est GFR (CKD-EPI)AfAm >90 (>60 ml/min/1.73 sqM) Est GFR (CKD-EPI)NonAf >90 (>60 ml/min/1.73 sqM) Glucose 104 H (74-99) mg/dL Calcium 10.0 (8.4-10.2) mg/dL Total Bilirubin 0.3 (0.2-1.3) mg/dL AST 240 H (14-36) U/L ALT 169 H (9-52) U/L Alkaline Phosphatase 72 (38-126) U/L Total Protein 7.6 (6.3-8.2) g/dL Albumin 4.1 (3.5-5.0) g/dL Stool Occult Blood Positive H (Negative) Disposition Clinical Impression: Chronic abdominal pain, Medication reaction, Anal fissure Disposition: HOME SELF-CARE Condition: Good Instructions: Adverse Drug Reaction (ED) Is patient prescribed a controlled substance at d/c from ED?: No Referrals: Marysol Rose DO [Primary Care Provider] - 1-2 days
[2018-04-14 00:59] VITALS: BP 117/72; PULSE 102; RESP 18; TEMP 99
== END 2018-04-14 00:58 | disposition home or self-care (01) ==
LOC: EC 22:06
DX: R10.11 Right upper quadrant pain (principal); G89.29 Other chronic pain; T45.0X5A Adverse effect of antiallergic and antiemetic drugs, initial encounter; K60.2 Anal fissure, unspecified; I20.9 Angina pectoris, unspecified; E11.9 Type 2 diabetes mellitus without complications; M79.7 Fibromyalgia; E07.9 Disorder of thyroid, unspecified; F41.9 Anxiety disorder, unspecified; F32.9 Major depressive disorder, single episode, unspecified; F43.10 Post-traumatic stress disorder, unspecified; Z90.49 Acquired absence of other specified parts of digestive tract; Z87.19 Personal history of other diseases of the digestive system; Z98.890 Other specified postprocedural states; Z79.84 Long term (current) use of oral hypoglycemic drugs; Z79.899 Other long term (current) drug therapy; Z88.0 Allergy status to penicillin; Z88.5 Allergy status to narcotic agent; Z88.6 Allergy status to analgesic agent; Z88.8 Allergy status to other drugs, medicaments and biological substances; Z91.013 Allergy to seafood; Z91.018 Allergy to other foods; Z91.040 Latex allergy status
CPT/HCPCS: 36415; 80053; 85025; 82272; 99283; 96374; 96375; J2270; J1200

== ENCOUNTER 2018-05-01 18:28 | Emergency (ER) | payer OTHER ==
[2018-05-01 19:24] VITALS: RESP 18
[2018-05-01] MEDS ORDERED: SODIUM CHLORIDE 0.9% 1,000 ML IV STA (20:59)
[2018-05-01] MEDS ORDERED: PROMETHAZINE INJ 25 MG in SODIUM CHLORIDE 0.9% 50 ML IVPB STA (21:00)
[2018-05-01] MEDS ORDERED: diphenhydrAMINE 50 MG/ML 1 ML VIAL IVP STA (21:03)
[2018-05-01] MEDS ORDERED: MORPHINE SULFATE 4 MG/ML SYRINGE IVP STA (21:05)
--- NOTE | 2018-05-01 21:09 | ED ---
Abdominal Pain HPI - General Chief Complaint: Abdominal Pain Stated Complaint: vomiting Time Seen by Provider: 05/01/18 20:49 Source: patient, family, RN notes reviewed Mode of arrival: wheelchair Limitations: no limitations - History of Present Illness Initial Comments: This is a 22-year-old female who presents to the emergency department with a chief complaint of right upper quadrant abdominal pain, nausea and vomiting. Patient is well-known to the emergency department. She does have a history of cirrhosis. Patient states that she has had an episode of increased pain, nausea and vomiting over the past 4 days. She does present to the emergency department when this happens for pain medication and anti-emetics. She states that she no longer can take Zofran and was recently prescribed Compazine one week ago. She states that she has been unable to keep down the oral Compazine. Denies any fevers or chills, diarrhea or constipation, dysuria or hematuria. Patient states that she has also been newly prescribed Cymbalta and Valium for the past one week. - Related Data Home Medications Medication Instructions Recorded Confirmed Albuterol Inhaler [Ventolin Hfa 2 puff INHALATION RT-Q6H PRN 08/27/15 05/01/18 Inhaler] [place] Carbonate 900 mg PO HS 08/27/15 05/01/18 Omeprazole [PriLOSEC] 20 mg PO BID 08/27/15 05/01/18 Levothyroxine Sodium [Synthroid] 125 mcg PO QAM 01/06/17 05/01/18 Ergocalciferol [Vitamin D2 50,000 unit PO BELL 02/13/17 05/01/18 (DRISDOL)] Montelukast [Singulair] 10 mg PO HS 05/21/17 05/01/18 cloNIDine HCL [Catapres] 0.2 mg PO HS 05/21/17 05/01/18 Potassium Chloride [K-Tab ER] 10 meq PO DAILY 09/14/17 05/01/18 Famotidine [Pepcid] 20 mg PO BID 02/04/18 05/01/18 Loratadine [Claritin] 10 mg PO DAILY 02/04/18 05/01/18 Norgestimate-Ethinyl Estradiol 1 tab PO DAILY 02/04/18 05/01/18 [Sprintec 28 Day Tablet] Pioglitazone [Actos] 15 mg PO DAILY 03/20/18 05/01/18 DULoxetine HCL [Cymbalta] 20 mg PO BID 05/01/18 05/01/18 Prochlorperazine [Compazine] 5 mg PO Q8HR PRN 05/01/18 05/01/18 Allergies Allergy/AdvReac Type Severity Reaction Status Date / Time fentanyl Allergy Rash/Hives Verified 05/01/18 20:23 grape Allergy Anaphylaxis Verified 05/01/18 20:23 latex Allergy Rash/Hives Verified 05/01/18 20:23 metoclopramide [From Reglan] Allergy Unknown Verified 05/01/18 20:23 ondansetron [From Zofran] Allergy Unknown Verified 05/01/18 20:23 Penicillins Allergy Anaphylaxis Verified 05/01/18 20:23 ibuprofen [From Motrin] AdvReac GI Bleed Verified 05/01/18 20:23 prazosin AdvReac Nausea & Verified 05/01/18 20:23 Vomiting Seafood Allergy Anaphylaxis Uncoded 05/01/18 19:20 Review of Systems ROS Statement: Those systems with pertinent positive or pertinent negative responses have been documented in the HPI. ROS Other: All systems not noted in ROS Statement are negative. Past Medical History Past Medical History: Asthma, Chest Pain / Angina, Diabetes Mellitus, Fibromyalgia, GERD/Reflux, Liver Disease, Thyroid Disorder Additional Past Medical History / Comment(s): Hepatitis, Cirrhosis of the liver. Esophagalitis. Migraines. IBS. PART OF STOMACH NON-FUNCTIONING. BLOOD IN STOOL, VOMITING DAILY., History of Any Multi-Drug Resistant Organisms: None Reported Past Surgical History: Appendectomy, Cholecystectomy, Tonsillectomy Additional Past Surgical History / Comment(s): NASAL Septum repair. COLONOSCOPY., Past Anesthesia/Blood Transfusion Reactions: Motion Sickness Past Psychological History: Anxiety, Depression, PTSD Smoking Status: Never smoker Past Alcohol Use History: None Reported Past Drug Use History: None Reported - Past Family History Mother Family Medical History: No Reported History Father Family Medical History: Liver Disease Additional Family Medical History / Comment(s): cirrhosis, esophagus disease General Exam - General Exam Comments Initial Comments: General: Awake and alert, well-developed; in no apparent distress. Obese white female lying comfortably on ED stretcher. HEENT: Head atraumatic, normocephalic. Pupils are equal, round and reactive to light. Extraocular movements intact. Oropharynx moist without erythema or exudate. Neck: Supple. Normal ROM. Cardiovascular: Regular rate and rhythm. No murmurs, rubs or gallops. Chest symmetrical. Respiratory: Lungs clear to auscultation bilaterally. No wheezes, rales or rhonchi. Normal respiratory effort with no use of accessory muscles. Abdomen: Soft, non-distended. Mild tenderness on palpation of right upper quadrant. No rigidity, rebound or guarding. Normal bowel sounds in all 4 quadrants. Musculoskeletal: Normal ROM, no tenderness bilateral upper and lower extremities. Skin: [place], warm and dry without rashes or lesions. Neurological: Alert and oriented x3. CN II-XII grossly intact. Speech is fluent and answers are appropriate. No focal neuro deficits. Psychiatric: Normal mood and affect. No overt signs of depression or anxiety noted. Limitations: no limitations Course Vital Signs 05/01/18 05/01/18 19:20 21:52 Temperature 98.7 F Pulse Rate 118 H 99 Respiratory 18 18 Rate Blood Pressure 111/68 132/81 O2 Sat by Pulse 97 99 Oximetry Medical Decision Making - Medical Decision Making This is a 22-year-old female who presents to the emergency department with chief complaint of right upper quadrant abdominal pain, nausea and vomiting. Patient has a history of cirrhosis. She is well-known to the emergency department and presents here often for symptomatic treatment. Patient does not appear acutely ill. She notes no increase in severity of her symptoms. She states that she was recently prescribed Cymbalta and Compazine. On physical examination, there is mild tenderness to the right upper quadrant. Patient's vital signs have been stable and she is in no acute distress. Her transaminases are elevated compared to previous laboratory studies with an AST at 565 and an ALT at 271. This is likely due to prescription of Cymbalta and Compazine as these are processed by the liver. Patient does have history of cholecystectomy. She states that she has an upcoming appointment with her psychiatrist tomorrow and will address the Cymbalta. She states that she has an appointment on Saturday with gastroenterology at [facility]. I recommended following up with her primary care provider regarding the prescription of Compazine as well. Patient is in agreement and voices understanding. On reevaluation, patient reports improvement in symptoms and is ready to be discharged home. She will be discharged home at this time. All questions were answered. - Lab Data Result diagrams: 05/01/18 20:50 05/01/18 20:50 Lab Results 05/01/18 05/01/18 05/01/18 Range/Units 20:50 20:50 20:50 WBC 11.0 H (3.8-10.6) k/uL RBC 4.59 (3.80-5.40) m/uL Hgb 13.0 (11.4-16.0) gm/dL Hct 39.7 (34.0-46.0) % MCV 86.3 (80.0-100.0) fL MCH 28.2 (25.0-35.0) pg MCHC 32.7 (31.0-37.0) g/dL RDW 13.6 (11.5-15.5) % Plt Count 363 (150-450) k/uL Neutrophils % 66 % Lymphocytes % 25 % Monocytes % 4 % Eosinophils % 3 % Basophils % 0 % Neutrophils # 7.3 (1.3-7.7) k/uL Lymphocytes # 2.8 (1.0-4.8) k/uL Monocytes # 0.5 (0-1.0) k/uL Eosinophils # 0.3 (0-0.7) k/uL Basophils # 0.0 (0-0.2) k/uL PT 9.9 (9.0-12.0) sec INR 1.0 (<1.2) APTT 24.4 (22.0-30.0) sec Sodium 139 (137-145) mmol/L Potassium 4.4 (3.5-5.1) mmol/L Chloride 104 (98-107) mmol/L Carbon Dioxide 25 (22-30) mmol/L Anion Gap 10 mmol/L BUN 10 (7-17) mg/dL Creatinine 0.70 (0.52-1.04) mg/dL Est GFR (CKD-EPI)AfAm >90 (>60 ml/min/1.73 sqM) Est GFR (CKD-EPI)NonAf >90 (>60 ml/min/1.73 sqM) Glucose 89 (74-99) mg/dL Calcium 10.1 (8.4-10.2) mg/dL Total Bilirubin 0.3 (0.2-1.3) mg/dL AST 565 H (14-36) U/L ALT 271 H (9-52) U/L Alkaline Phosphatase 87 (38-126) U/L Total Protein 8.4 H (6.3-8.2) g/dL Albumin 4.4 (3.5-5.0) g/dL Amylase 41 (30-110) U/L Lipase 52 (23-300) U/L Disposition Clinical Impression: RUQ pain, Nausea & vomiting Disposition: HOME SELF-CARE Condition: Good Instructions: Abdominal Pain (ED) Additional Instructions: As discussed, please address the newly prescribed Compazine and Cymbalta with prescribers. Please follow up with primary care provider within 1-2 days. Return to emergency department if symptoms should worsen or any concerns arise. Is patient prescribed a controlled substance at d/c from ED?: No Referrals: Marysol Rose DO [Primary Care Provider] - 1-2 days Time of Disposition: 22:23
[2018-05-01 21:23] LABS: Basophils % (A) 0 %; Eosinophils # (A) 0.3 k/uL (0-0.7); Eosinophils % (A) 3 %; HCT 39.7 % (34.0-46.0); Lymphocytes # (A) 2.8 k/uL (1.0-4.8); Lymphocytes % (A) 25 %; MCH 28.2 pg (25.0-35.0); MCHC 32.7 g/dL (31.0-37.0); MCV 86.3 fL (80.0-100.0); Mean Platelet Volume 7.2; Monocytes # (A) 0.5 k/uL (0-1.0); Monocytes % (A) 4 %; Neutrophils # (A) 7.3 k/uL (1.3-7.7); Neutrophils % (A) 66 %; Platelet Count 363 k/uL (150-450); RBC 4.59 m/uL (3.80-5.40); RDW 13.6 % (11.5-15.5)
[2018-05-01 21:33] LABS: Partial Thromboplastin Time 24.4 sec (22.0-30.0); Prothrombin Time 9.9 sec (9.0-12.0)
[2018-05-01 21:38] LABS: ALT 271 U/L (9-52); AST 565 U/L (14-36); Albumin 4.4 g/dL (3.5-5.0); Alkaline Phosphatase 87 U/L (38-126); Amylase 41 U/L (30-110); Anion Gap 10 mmol/L; Blood Urea Nitrogen 10 mg/dL (7-17); Calcium 10.1 mg/dL (8.4-10.2); Carbon Dioxide 25 mmol/L (22-30); Chloride 104 mmol/L (98-107); Glucose 89 mg/dL (74-99); Lipase 52 U/L (23-300); Potassium 4.4 mmol/L (3.5-5.1); Sodium 139 mmol/L (137-145); Total Bilirubin 0.3 mg/dL (0.2-1.3); Total Protein 8.4 g/dL (6.3-8.2)
[2018-05-01 22:41] VITALS: BP 112/68; PULSE 91; TEMP 98.5
== END 2018-05-01 22:45 | disposition home or self-care (01) ==
LOC: EC 18:28
DX: R10.11 Right upper quadrant pain (principal); R11.2 Nausea with vomiting, unspecified; R74.0 Nonspecific elevation of levels of transaminase and lactic acid dehydrogenase [LDH]; J45.909 Unspecified asthma, uncomplicated; E11.9 Type 2 diabetes mellitus without complications; K21.9 Gastro-esophageal reflux disease without esophagitis; E07.9 Disorder of thyroid, unspecified; F32.9 Major depressive disorder, single episode, unspecified; F41.9 Anxiety disorder, unspecified; E66.9 Obesity, unspecified; Z79.3 Long term (current) use of hormonal contraceptives; Z79.84 Long term (current) use of oral hypoglycemic drugs; Z79.899 Other long term (current) drug therapy; Z88.0 Allergy status to penicillin; Z88.5 Allergy status to narcotic agent; Z88.6 Allergy status to analgesic agent; Z88.8 Allergy status to other drugs, medicaments and biological substances; Z91.013 Allergy to seafood; Z91.018 Allergy to other foods; Z91.040 Latex allergy status; Z86.79 Personal history of other diseases of the circulatory system; Z68.41 Body mass index [BMI] 40.0-44.9, adult; Z90.49 Acquired absence of other specified parts of digestive tract; Z83.79 Family history of other diseases of the digestive system
CPT/HCPCS: 99284; 96374; 96375 ×2; 96361; 36415; 80053; 82150; 83690; 85025; 85610; 85730; J2270; J1200; J2550

== ENCOUNTER 2018-05-08 20:44 | Emergency (ER) | payer OTHER ==
[2018-05-08] MEDS ORDERED: PROMETHAZINE INJ 25 MG in SODIUM CHLORIDE 0.9% 50 ML IVPB STA (22:18)
[2018-05-08] MEDS ORDERED: MORPHINE SULFATE 4 MG/ML SYRINGE IV STA (22:18)
[2018-05-08] MEDS ORDERED: SODIUM CHLORIDE 0.9% 1,000 ML IV STA (22:18)
--- NOTE | 2018-05-08 23:12 | ED ---
General Adult HPI - General Chief complaint: Abdominal Pain Stated complaint: upper right abdominal pain Source: patient, RN notes reviewed Mode of arrival: ambulatory Limitations: no limitations - History of Present Illness Initial comments: Patient's a 22-year-old female seen with a past medical history for liver cirrhosis, presented emergency room today with a chief complaint of abdominal pain located to the upper abdomen. Patient has multiple ER visits for similar symptoms. She states these are the same pain and symptoms of nausea vomiting that she's had in the past. She is followed up with both [facility] and [facility]. Patient states she has had some increased acid reflux as she was recently told that she should try to discontinue the Prilosec and Pepcid. Patient does admit some nausea vomiting. Denies any other complaints. Patient denies any recent fever, chills, shortness of breath, chest pain, back pain, dysuria or hematuria, constipation or diarrhea, headaches or visual changes, or any other complaints. - Related Data Home Medications Medication Instructions Recorded Confirmed [place] Carbonate 900 mg PO HS 08/27/15 05/08/18 Omeprazole [PriLOSEC] 20 mg PO BID 08/27/15 05/08/18 Levothyroxine Sodium [Synthroid] 125 mcg PO QAM 01/06/17 05/08/18 Ergocalciferol [Vitamin D2 50,000 unit PO BELL 02/13/17 05/08/18 (DRISDOL)] Montelukast [Singulair] 10 mg PO HS 05/21/17 05/08/18 cloNIDine HCL [Catapres] 0.2 mg PO HS 05/21/17 05/08/18 Potassium Chloride [K-Tab ER] 10 meq PO DAILY 09/14/17 05/08/18 Famotidine [Pepcid] 20 mg PO BID 02/04/18 05/08/18 Loratadine [Claritin] 10 mg PO DAILY 02/04/18 05/08/18 Norgestimate-Ethinyl Estradiol 1 tab PO DAILY 02/04/18 05/08/18 [Sprintec 28 Day Tablet] Pioglitazone [Actos] 15 mg PO DAILY 03/20/18 05/08/18 DULoxetine HCL [Cymbalta] 20 mg PO BID 05/01/18 05/08/18 Prochlorperazine [Compazine] 5 mg PO Q8HR PRN 05/01/18 05/08/18 Allergies Allergy/AdvReac Type Severity Reaction Status Date / Time fentanyl Allergy Rash/Hives Verified 05/08/18 21:04 grape Allergy Anaphylaxis Verified 05/08/18 21:04 latex Allergy Rash/Hives Verified 05/08/18 21:04 metoclopramide [From Reglan] Allergy Unknown Verified 05/08/18 21:04 ondansetron [From Zofran] Allergy Unknown Verified 05/08/18 21:04 Penicillins Allergy Anaphylaxis Verified 05/08/18 21:04 ibuprofen [From Motrin] AdvReac GI Bleed Verified 05/08/18 21:04 prazosin AdvReac Nausea & Verified 05/08/18 21:04 Vomiting Seafood Allergy Anaphylaxis Uncoded 05/08/18 21:04 Review of Systems ROS Statement: Those systems with pertinent positive or pertinent negative responses have been documented in the HPI. ROS Other: All systems not noted in ROS Statement are negative. Past Medical History Past Medical History: Asthma, Chest Pain / Angina, Diabetes Mellitus, Fibromyalgia, GERD/Reflux, Liver Disease, Thyroid Disorder Additional Past Medical History / Comment(s): Hepatitis, Cirrhosis of the liver. Esophagalitis. Migraines. IBS. PART OF STOMACH NON-FUNCTIONING. BLOOD IN STOOL, VOMITING DAILY., History of Any Multi-Drug Resistant Organisms: None Reported Past Surgical History: Appendectomy, Cholecystectomy, Tonsillectomy Additional Past Surgical History / Comment(s): NASAL Septum repair. COLONOSCOPY., Past Anesthesia/Blood Transfusion Reactions: Motion Sickness Past Psychological History: Anxiety, Depression, PTSD Smoking Status: Never smoker Past Alcohol Use History: None Reported Past Drug Use History: None Reported - Past Family History Mother Family Medical History: No Reported History Father Family Medical History: Liver Disease Additional Family Medical History / Comment(s): cirrhosis, esophagus disease General Exam - General Exam Comments Initial Comments: General: The patient is awake and alert, in no distress, and does not appear acutely ill. Eye: extra-ocular movements are intact. No nystagmus. There is normal conjunctiva bilaterally. No signs of icterus. Ears, nose, mouth and throat: There are moist mucous membranes and no oral lesions. Neck: The neck is supple, there is no tenderness or JVD. Cardiovascular: There is a regular rate and rhythm. No murmur, rub or gallop is appreciated. Respiratory: Lungs are clear to auscultation, respirations are non-labored, breath sounds are equal. No wheezes, stridor, rales, or rhonchi. Gastrointestinal: Abdomen soft on palpation. Patient does have tenderness in the upper quadrant. No rebound, guarding or CVA tenderness. Musculoskeletal: Normal ROM, no tenderness. Sensation intact. Neurological: A&O x 3. CN II-XII intact, There are no obvious motor or sensory deficits. Coordination appears grossly intact. Speech is normal. Skin: Skin is warm and dry and no rashes or lesions are noted. Psychiatric: Cooperative, appropriate mood & affect, normal judgment. Limitations: no limitations Course Vital Signs 05/08/18 05/09/18 21:01 00:05 Temperature 98.0 F Pulse Rate 101 H 82 Respiratory 18 17 Rate Blood Pressure 134/92 126/75 O2 Sat by Pulse 98 99 Oximetry Medical Decision Making - Medical Decision Making Patient's labs are been reviewed and are unremarkable. Liver enzymes mildly elevated which are much improved from previous labs. Patient's had multiple visits for the same complaint and states that this is same pain that she's had before. Patient will be discharged home to follow-up with her family doctor and specialist. - Lab Data Result diagrams: 05/08/18 22:30 05/08/18 22:30 Lab Results 05/08/18 05/08/18 Range/Units 22:30 22:30 WBC 9.8 (3.8-10.6) k/uL RBC 4.31 (3.80-5.40) m/uL Hgb 12.1 (11.4-16.0) gm/dL Hct 38.1 (34.0-46.0) % MCV 88.5 (80.0-100.0) fL MCH 28.2 (25.0-35.0) pg MCHC 31.9 (31.0-37.0) g/dL RDW 13.5 (11.5-15.5) % Plt Count 333 (150-450) k/uL Neutrophils % 51 % Lymphocytes % 38 % Monocytes % 4 % Eosinophils % 6 % Basophils % 0 % Neutrophils # 5.0 (1.3-7.7) k/uL Lymphocytes # 3.7 (1.0-4.8) k/uL Monocytes # 0.4 (0-1.0) k/uL Eosinophils # 0.6 (0-0.7) k/uL Basophils # 0.0 (0-0.2) k/uL Sodium 138 (137-145) mmol/L Potassium 4.8 (3.5-5.1) mmol/L Chloride 103 (98-107) mmol/L Carbon Dioxide 28 (22-30) mmol/L Anion Gap 7 mmol/L BUN 8 (7-17) mg/dL Creatinine 0.68 (0.52-1.04) mg/dL Est GFR (CKD-EPI)AfAm >90 (>60 ml/min/1.73 sqM) Est GFR (CKD-EPI)NonAf >90 (>60 ml/min/1.73 sqM) Glucose 81 (74-99) mg/dL Calcium 9.6 (8.4-10.2) mg/dL Total Bilirubin 0.4 (0.2-1.3) mg/dL AST 94 H (14-36) U/L ALT 96 H (9-52) U/L Alkaline Phosphatase 63 (38-126) U/L Total Protein 7.6 (6.3-8.2) g/dL Albumin 3.9 (3.5-5.0) g/dL Lipase 63 (23-300) U/L Disposition Clinical Impression: Chronic abdominal pain Disposition: HOME SELF-CARE Condition: Good Instructions: Abdominal Pain (ED) Additional Instructions: Please follow-up with family doctor in the next 2 days of symptoms have not improved. Please return to emergency room if the symptoms increase or worsen or for any other concerns. Is patient prescribed a controlled substance at d/c from ED?: No Referrals: Marysol Rose DO [Primary Care Provider] - 1-2 days Time of Disposition: 00:15
[2018-05-08 23:20] LABS: Basophils % (A) 0 %; Eosinophils # (A) 0.6 k/uL (0-0.7); Eosinophils % (A) 6 %; HCT 38.1 % (34.0-46.0); HGB 12.1 gm/dL (11.4-16.0); Lymphocytes # (A) 3.7 k/uL (1.0-4.8); Lymphocytes % (A) 38 %; MCH 28.2 pg (25.0-35.0); MCHC 31.9 g/dL (31.0-37.0); MCV 88.5 fL (80.0-100.0); Mean Platelet Volume 7.5; Monocytes # (A) 0.4 k/uL (0-1.0); Monocytes % (A) 4 %; Neutrophils % (A) 51 %; Platelet Count 333 k/uL (150-450); RBC 4.31 m/uL (3.80-5.40); RDW 13.5 % (11.5-15.5); WBC 9.8 k/uL (3.8-10.6)
[2018-05-08 23:37] LABS: ALT 96 U/L (9-52); AST 94 U/L (14-36); Albumin 3.9 g/dL (3.5-5.0); Alkaline Phosphatase 63 U/L (38-126); Anion Gap 7 mmol/L; Blood Urea Nitrogen 8 mg/dL (7-17); Calcium 9.6 mg/dL (8.4-10.2); Carbon Dioxide 28 mmol/L (22-30); Chloride 103 mmol/L (98-107); Glucose 81 mg/dL (74-99); Lipase 63 U/L (23-300); Sodium 138 mmol/L (137-145); Total Bilirubin 0.4 mg/dL (0.2-1.3); Total Protein 7.6 g/dL (6.3-8.2)
[2018-05-08 23:39] LABS: Potassium 4.8 mmol/L (3.5-5.1)
[2018-05-09 01:02] VITALS: BP 123/81; PULSE 92; RESP 16; TEMP 97
== END 2018-05-09 01:08 | disposition home or self-care (01) ==
LOC: EC 20:44
DX: R10.10 Upper abdominal pain, unspecified (principal); R11.2 Nausea with vomiting, unspecified; R74.8 Abnormal levels of other serum enzymes; J45.909 Unspecified asthma, uncomplicated; E11.9 Type 2 diabetes mellitus without complications; M79.7 Fibromyalgia; K21.9 Gastro-esophageal reflux disease without esophagitis; K58.9 Irritable bowel syndrome, unspecified; E07.9 Disorder of thyroid, unspecified; F32.9 Major depressive disorder, single episode, unspecified; F41.9 Anxiety disorder, unspecified; F43.10 Post-traumatic stress disorder, unspecified; Z87.19 Personal history of other diseases of the digestive system; Z79.3 Long term (current) use of hormonal contraceptives; Z79.899 Other long term (current) drug therapy; Z88.0 Allergy status to penicillin; Z91.013 Allergy to seafood; Z91.018 Allergy to other foods; Z91.040 Latex allergy status; Z88.6 Allergy status to analgesic agent; Z88.8 Allergy status to other drugs, medicaments and biological substances; Z88.5 Allergy status to narcotic agent; Z90.49 Acquired absence of other specified parts of digestive tract
CPT/HCPCS: 36415; 80053; 83690; 85025; 99284; 96374; 96375; 96361; J2270; J2550

== ENCOUNTER 2018-05-13 00:06 | Emergency (ER) | payer OTHER ==
[2018-05-13] MEDS ORDERED: SODIUM CHLORIDE 0.9% 1,000 ML IV STA (00:41)
[2018-05-13] MEDS ORDERED: MORPHINE SULFATE 4 MG/ML SYRINGE IV STA (00:41)
--- NOTE | 2018-05-13 01:00 | ED ---
General Adult HPI - General Chief complaint: Abdominal Pain Stated complaint: ABD PAIN, NAUSEA Time Seen by Provider: 05/13/18 00:30 Source: patient, RN notes reviewed, old records reviewed Mode of arrival: ambulatory Limitations: no limitations - History of Present Illness Initial comments: 22-year-old female presents for evaluation of abdominal pain nausea and vomiting. Patient has significant history of abdominal pain with nausea vomiting. This is been a chronic issue for the past 5 years. She follows both at [facility] and [facility]. Her symptoms are typical of her normal exacerbation. She does have history of fatty liver disease as well as liver cirrhosis. She states she had 3 or 4 episodes of vomiting just prior to arrival. As well as some epigastric abdominal pain associated with these episodes. No fever or chills. Pain is typical and unchanged from her chronic issues. - Related Data Home Medications Medication Instructions Recorded Confirmed [place] Carbonate 900 mg PO HS 08/27/15 05/08/18 Omeprazole [PriLOSEC] 20 mg PO BID 08/27/15 05/08/18 Levothyroxine Sodium [Synthroid] 125 mcg PO QAM 01/06/17 05/08/18 Ergocalciferol [Vitamin D2 50,000 unit PO BELL 02/13/17 05/08/18 (DRISDOL)] Montelukast [Singulair] 10 mg PO HS 05/21/17 05/08/18 cloNIDine HCL [Catapres] 0.2 mg PO HS 05/21/17 05/08/18 Potassium Chloride [K-Tab ER] 10 meq PO DAILY 09/14/17 05/08/18 Famotidine [Pepcid] 20 mg PO BID 02/04/18 05/08/18 Loratadine [Claritin] 10 mg PO DAILY 02/04/18 05/08/18 Norgestimate-Ethinyl Estradiol 1 tab PO DAILY 02/04/18 05/08/18 [Sprintec 28 Day Tablet] Pioglitazone [Actos] 15 mg PO DAILY 03/20/18 05/08/18 DULoxetine HCL [Cymbalta] 20 mg PO BID 05/01/18 05/08/18 Prochlorperazine [Compazine] 5 mg PO Q8HR PRN 05/01/18 05/08/18 Allergies Allergy/AdvReac Type Severity Reaction Status Date / Time fentanyl Allergy Rash/Hives Verified 05/13/18 00:12 grape Allergy Anaphylaxis Verified 05/13/18 00:12 latex Allergy Rash/Hives Verified 05/13/18 00:12 metoclopramide [From Reglan] Allergy Unknown Verified 05/13/18 00:12 ondansetron [From Zofran] Allergy Unknown Verified 05/13/18 00:12 Penicillins Allergy Anaphylaxis Verified 05/13/18 00:12 ibuprofen [From Motrin] AdvReac GI Bleed Verified 05/13/18 00:12 prazosin AdvReac Nausea & Verified 05/13/18 00:12 Vomiting Seafood Allergy Anaphylaxis Uncoded 05/13/18 00:12 Review of Systems ROS Statement: Those systems with pertinent positive or pertinent negative responses have been documented in the HPI. ROS Other: All systems not noted in ROS Statement are negative. Past Medical History Past Medical History: Asthma, Chest Pain / Angina, Diabetes Mellitus, Fibromyalgia, GERD/Reflux, Liver Disease, Thyroid Disorder Additional Past Medical History / Comment(s): Hepatitis, Cirrhosis of the liver. Esophagalitis. Migraines. IBS. PART OF STOMACH NON-FUNCTIONING. BLOOD IN STOOL, VOMITING DAILY., History of Any Multi-Drug Resistant Organisms: None Reported Past Surgical History: Appendectomy, Cholecystectomy, Tonsillectomy Additional Past Surgical History / Comment(s): NASAL Septum repair. COLONOSCOPY., Past Anesthesia/Blood Transfusion Reactions: Motion Sickness Past Psychological History: Anxiety, Depression, PTSD Smoking Status: Never smoker Past Alcohol Use History: None Reported Past Drug Use History: None Reported - Past Family History Mother Family Medical History: No Reported History Father Family Medical History: Liver Disease Additional Family Medical History / Comment(s): cirrhosis, esophagus disease General Exam Limitations: no limitations General appearance: alert, in no apparent distress Head exam: Present: atraumatic, normocephalic Eye exam: Present: normal appearance, PERRL ENT exam: Present: mucous membranes dry Neck exam: Present: normal inspection. Absent: tenderness, meningismus Respiratory exam: Present: normal lung sounds bilaterally. Absent: respiratory distress, wheezes Cardiovascular Exam: Present: regular rate, normal rhythm GI/Abdominal exam: Present: soft. Absent: distended, tenderness, guarding, rebound, rigid Extremities exam: Present: normal inspection, normal capillary refill. Absent: pedal edema Neurological exam: Present: alert, oriented X3, CN II-XII intact. Absent: motor sensory deficit Psychiatric exam: Present: normal affect, normal mood Skin exam: Present: warm, dry, intact. Absent: cyanosis, diaphoretic Course Vital Signs 05/13/18 00:10 Temperature 98 F Pulse Rate 102 H Respiratory 20 Rate Blood Pressure 143/95 O2 Sat by Pulse 96 Oximetry Medical Decision Making - Medical Decision Making Laboratory studies revealed mild leukocytosis, stable hemoglobin, electrolytes within normal limits. Mild elevation in transaminase levels. Patient reevaluated, she is resting comfortably. No episodes of nausea and vomiting. She will be discharged home with outpatient follow-up. Return with worsening or changing symptoms. - Lab Data Result diagrams: 05/13/18 01:30 05/13/18 01:30 Lab Results 05/13/18 05/13/18 Range/Units 01:30 01:30 WBC 12.0 H (3.8-10.6) k/uL RBC 4.04 (3.80-5.40) m/uL Hgb 11.3 L (11.4-16.0) gm/dL Hct 35.1 (34.0-46.0) % MCV 86.9 (80.0-100.0) fL MCH 28.0 (25.0-35.0) pg MCHC 32.3 (31.0-37.0) g/dL RDW 13.4 (11.5-15.5) % Plt Count 281 (150-450) k/uL Neutrophils % 63 % Lymphocytes % 26 % Monocytes % 6 % Eosinophils % 4 % Basophils % 0 % Neutrophils # 7.5 (1.3-7.7) k/uL Lymphocytes # 3.1 (1.0-4.8) k/uL Monocytes # 0.7 (0-1.0) k/uL Eosinophils # 0.5 (0-0.7) k/uL Basophils # 0.0 (0-0.2) k/uL Sodium 136 L (137-145) mmol/L Potassium 4.1 (3.5-5.1) mmol/L Chloride 106 (98-107) mmol/L Carbon Dioxide 23 (22-30) mmol/L Anion Gap 7 mmol/L BUN 10 (7-17) mg/dL Creatinine 0.70 (0.52-1.04) mg/dL Est GFR (CKD-EPI)AfAm >90 (>60 ml/min/1.73 sqM) Est GFR (CKD-EPI)NonAf >90 (>60 ml/min/1.73 sqM) Glucose 89 (74-99) mg/dL Calcium 9.4 (8.4-10.2) mg/dL Total Bilirubin 0.3 (0.2-1.3) mg/dL AST 80 H (14-36) U/L ALT 70 H (9-52) U/L Alkaline Phosphatase 67 (38-126) U/L Total Protein 7.1 (6.3-8.2) g/dL Albumin 3.8 (3.5-5.0) g/dL Amylase 48 (30-110) U/L Lipase 59 (23-300) U/L Disposition Clinical Impression: Chronic nonalcoholic liver disease, Nausea & vomiting Disposition: HOME SELF-CARE Condition: Fair Instructions: Acute Nausea and Vomiting (ED) Is patient prescribed a controlled substance at d/c from ED?: No Referrals: Marysol Rose DO [Primary Care Provider] - 1-2 days Time of Disposition: 02:10
[2018-05-13 01:39] LABS: Basophils % (A) 0 %; Eosinophils # (A) 0.5 k/uL (0-0.7); Eosinophils % (A) 4 %; HCT 35.1 % (34.0-46.0); HGB 11.3 gm/dL (11.4-16.0); Lymphocytes # (A) 3.1 k/uL (1.0-4.8); Lymphocytes % (A) 26 %; MCHC 32.3 g/dL (31.0-37.0); MCV 86.9 fL (80.0-100.0); Mean Platelet Volume 6.8; Monocytes # (A) 0.7 k/uL (0-1.0); Monocytes % (A) 6 %; Neutrophils # (A) 7.5 k/uL (1.3-7.7); Neutrophils % (A) 63 %; Platelet Count 281 k/uL (150-450); RBC 4.04 m/uL (3.80-5.40); RDW 13.4 % (11.5-15.5)
[2018-05-13 01:57] LABS: ALT 70 U/L (9-52); AST 80 U/L (14-36); Albumin 3.8 g/dL (3.5-5.0); Alkaline Phosphatase 67 U/L (38-126); Amylase 48 U/L (30-110); Anion Gap 7 mmol/L; Blood Urea Nitrogen 10 mg/dL (7-17); Calcium 9.4 mg/dL (8.4-10.2); Carbon Dioxide 23 mmol/L (22-30); Chloride 106 mmol/L (98-107); Glucose 89 mg/dL (74-99); Lipase 59 U/L (23-300); Potassium 4.1 mmol/L (3.5-5.1); Sodium 136 mmol/L (137-145); Total Bilirubin 0.3 mg/dL (0.2-1.3); Total Protein 7.1 g/dL (6.3-8.2)
[2018-05-13 02:26] VITALS: BP 139/68; PULSE 79; RESP 16; TEMP 98.6
== END 2018-05-13 02:26 | disposition home or self-care (01) ==
LOC: EC 00:06
DX: K74.60 Unspecified cirrhosis of liver (principal); R11.2 Nausea with vomiting, unspecified; D72.829 Elevated white blood cell count, unspecified; R74.0 Nonspecific elevation of levels of transaminase and lactic acid dehydrogenase [LDH]; R10.13 Epigastric pain; J45.909 Unspecified asthma, uncomplicated; E11.9 Type 2 diabetes mellitus without complications; K21.9 Gastro-esophageal reflux disease without esophagitis; E07.9 Disorder of thyroid, unspecified; F32.9 Major depressive disorder, single episode, unspecified; Z79.3 Long term (current) use of hormonal contraceptives; Z79.84 Long term (current) use of oral hypoglycemic drugs; Z79.899 Other long term (current) drug therapy; Z88.0 Allergy status to penicillin; Z88.5 Allergy status to narcotic agent; Z88.6 Allergy status to analgesic agent; Z88.8 Allergy status to other drugs, medicaments and biological substances; Z91.013 Allergy to seafood; Z91.018 Allergy to other foods; Z91.040 Latex allergy status; Z90.49 Acquired absence of other specified parts of digestive tract; Z83.79 Family history of other diseases of the digestive system
CPT/HCPCS: 36415; 80053; 82150; 83690; 85025; 99284; 96374; 96361; J2270

== ENCOUNTER 2018-05-13 17:59 | Emergency (ER) | payer OTHER ==
[2018-05-13 18:07] VITALS: RESP 18; TEMP 98.1
[2018-05-13] MEDS ORDERED: MORPHINE SULFATE 4 MG/ML SYRINGE IVP STA (18:40)
[2018-05-13] MEDS ORDERED: PROMETHAZINE INJ 25 MG in SODIUM CHLORIDE 0.9% 50 ML IVPB STA (18:40)
[2018-05-13] MEDS ORDERED: SODIUM CHLORIDE 0.9% 1,000 ML IV STA (18:40)
[2018-05-13] MEDS ORDERED: diphenhydrAMINE 50 MG/ML 1 ML VIAL IVP STA (18:42)
--- NOTE | 2018-05-13 18:46 | ED ---
Nausea/Vomiting/Diarrhea HPI - General Chief complaint: Nausea/Vomiting/Diarrhea Stated complaint: Vomiting/nausea Time Seen by Provider: 05/13/18 18:31 Source: patient, RN notes reviewed Mode of arrival: ambulatory Limitations: no limitations - History of Present Illness Initial comments: This is a 22-year-old female who presents to the emergency department with chief complaint of nausea and vomiting. Patient is well-known to the emergency department. She has a history of liver cirrhosis and is seen here periodically for right upper quadrant pain, nausea and vomiting. Patient was seen here at 1: 30 in the morning yesterday. She states that she was given pain medication but nothing for nausea and vomiting. She states she was discharged home and continued to vomit throughout the day today. She has recently followed up with gastroenterology at [facility] and was started on a new medication that helps with liver spasms. Patient is unable to recall the name of this medication. She denies any fevers or chills, chest pain or shortness of breath, dysuria or hematuria. She does state that she has had some loose stools but states that this comes and goes periodically. - Related Data Home Medications Medication Instructions Recorded Confirmed [place] Carbonate 900 mg PO HS 08/27/15 05/13/18 Omeprazole [PriLOSEC] 20 mg PO BID 08/27/15 05/13/18 Levothyroxine Sodium [Synthroid] 125 mcg PO QAM 01/06/17 05/13/18 Ergocalciferol [Vitamin D2 50,000 unit PO BELL 02/13/17 05/13/18 (DRISDOL)] Montelukast [Singulair] 10 mg PO HS 05/21/17 05/13/18 cloNIDine HCL [Catapres] 0.2 mg PO HS 05/21/17 05/13/18 Potassium Chloride [K-Tab ER] 10 meq PO DAILY 09/14/17 05/13/18 Famotidine [Pepcid] 20 mg PO BID 02/04/18 05/13/18 Loratadine [Claritin] 10 mg PO DAILY 02/04/18 05/13/18 Norgestimate-Ethinyl Estradiol 1 tab PO DAILY 02/04/18 05/13/18 [Sprintec 28 Day Tablet] Pioglitazone [Actos] 15 mg PO DAILY 03/20/18 05/13/18 DULoxetine HCL [Cymbalta] 20 mg PO BID 05/01/18 05/13/18 Prochlorperazine [Compazine] 5 mg PO Q8HR PRN 05/01/18 05/13/18 QUEtiapine [SEROquel] 25 mg PO HS 05/13/18 05/13/18 Allergies Allergy/AdvReac Type Severity Reaction Status Date / Time fentanyl Allergy Rash/Hives Verified 05/13/18 18:14 grape Allergy Anaphylaxis Verified 05/13/18 18:14 latex Allergy Rash/Hives Verified 05/13/18 18:14 metoclopramide [From Reglan] Allergy Unknown Verified 05/13/18 18:14 ondansetron [From Zofran] Allergy Unknown Verified 05/13/18 18:14 Penicillins Allergy Anaphylaxis Verified 05/13/18 18:14 ibuprofen [From Motrin] AdvReac GI Bleed Verified 05/13/18 18:14 prazosin AdvReac Nausea & Verified 05/13/18 18:14 Vomiting Seafood Allergy Anaphylaxis Uncoded 05/13/18 18:07 Review of Systems ROS Statement: Those systems with pertinent positive or pertinent negative responses have been documented in the HPI. ROS Other: All systems not noted in ROS Statement are negative. Past Medical History Past Medical History: Asthma, Chest Pain / Angina, Diabetes Mellitus, Fibromyalgia, GERD/Reflux, Liver Disease, Thyroid Disorder Additional Past Medical History / Comment(s): Hepatitis, Cirrhosis of the liver. Esophagalitis. Migraines. IBS. PART OF STOMACH NON-FUNCTIONING. BLOOD IN STOOL, VOMITING DAILY., History of Any Multi-Drug Resistant Organisms: None Reported Past Surgical History: Appendectomy, Cholecystectomy, Tonsillectomy Additional Past Surgical History / Comment(s): NASAL Septum repair. COLONOSCOPY., Past Anesthesia/Blood Transfusion Reactions: Motion Sickness Past Psychological History: Anxiety, Depression, PTSD Smoking Status: Never smoker Past Alcohol Use History: None Reported Past Drug Use History: None Reported - Past Family History Mother Family Medical History: No Reported History Father Family Medical History: Liver Disease Additional Family Medical History / Comment(s): cirrhosis, esophagus disease General Exam - General Exam Comments Initial Comments: General: Awake and alert, well-developed; in no apparent distress. Patient does not appear acutely ill. She is lying comfortably on ED stretcher. HEENT: Head atraumatic, normocephalic. Pupils are equal, round and reactive to light. Extraocular movements intact. Oropharynx moist without erythema or exudate. Neck: Supple. Normal ROM. Cardiovascular: Regular rate and rhythm. No murmurs, rubs or gallops. Chest symmetrical. Respiratory: Lungs clear to auscultation bilaterally. No wheezes, rales or rhonchi. Normal respiratory effort with no use of accessory muscles. Abdomen: Soft, non-distended. Tenderness on palpation of right upper quadrant. No rigidity, rebound or guarding. Normal bowel sounds in all 4 quadrants. Musculoskeletal: Normal ROM, no tenderness bilateral upper and lower extremities. Ambulating normally. Skin: [place], warm and dry without rashes or lesions. Neurological: Alert and oriented x3. CN II-XII grossly intact. Speech is fluent and answers are appropriate. No focal neuro deficits. Psychiatric: Normal mood and affect. No overt signs of depression or anxiety noted. Limitations: no limitations Course Vital Signs 05/13/18 18:04 Temperature 98.1 F Pulse Rate 103 H Respiratory 18 Rate Blood Pressure 102/67 O2 Sat by Pulse 97 Oximetry Medical Decision Making - Medical Decision Making This is a 22-year-old female with history of liver cirrhosis who presents to the emergency department with chief complaint of nausea and vomiting. Patient is well-known to the emergency department. She reports nausea and vomiting throughout the day today. While in the emergency department, patient was given 1 L bolus, Phenergan and morphine. Patient states that her symptoms have improved. CBC and CMP are at patient's baseline. Vital signs have been stable and she is in acute distress. She will be discharged home at this time. She is in agreement and voices understanding. All questions were answered. - Lab Data Result diagrams: 05/13/18 19:00 05/13/18 19:00 Lab Results 05/13/18 05/13/18 05/13/18 Range/Units 19:00 19:00 19:00 WBC 8.5 (3.8-10.6) k/uL RBC 4.21 (3.80-5.40) m/uL Hgb 11.6 (11.4-16.0) gm/dL Hct 38.0 (34.0-46.0) % MCV 90.3 (80.0-100.0) fL MCH 27.6 (25.0-35.0) pg MCHC 30.6 L (31.0-37.0) g/dL RDW 13.5 (11.5-15.5) % Plt Count 298 (150-450) k/uL Neutrophils % 60 % Lymphocytes % 29 % Monocytes % 5 % Eosinophils % 5 % Basophils % 1 % Neutrophils # 5.1 (1.3-7.7) k/uL Lymphocytes # 2.4 (1.0-4.8) k/uL Monocytes # 0.4 (0-1.0) k/uL Eosinophils # 0.4 (0-0.7) k/uL Basophils # 0.0 (0-0.2) k/uL Hypochromasia Slight Sodium 139 (137-145) mmol/L Potassium 4.3 (3.5-5.1) mmol/L Chloride 107 (98-107) mmol/L Carbon Dioxide 23 (22-30) mmol/L Anion Gap 9 mmol/L BUN 9 (7-17) mg/dL Creatinine 0.67 (0.52-1.04) mg/dL Est GFR (CKD-EPI)AfAm >90 (>60 ml/min/1.73 sqM) Est GFR (CKD-EPI)NonAf >90 (>60 ml/min/1.73 sqM) Glucose 110 H (74-99) mg/dL Calcium 9.6 (8.4-10.2) mg/dL Total Bilirubin 0.3 (0.2-1.3) mg/dL AST 170 H (14-36) U/L ALT 88 H (9-52) U/L Alkaline Phosphatase 66 (38-126) U/L Total Protein 7.3 (6.3-8.2) g/dL Albumin 3.7 (3.5-5.0) g/dL Amylase 43 (30-110) U/L Lipase 51 (23-300) U/L Disposition Clinical Impression: Chronic abdominal pain, Nausea & vomiting Disposition: HOME SELF-CARE Condition: Good Instructions: Acute Nausea and Vomiting (ED) Additional Instructions: Please follow up with primary care provider within 1-2 days. Return to emergency department if symptoms should worsen or any concerns arise. Is patient prescribed a controlled substance at d/c from ED?: No Referrals: Marysol Rose DO [Primary Care Provider] - 1-2 days Time of Disposition: 20:17
[2018-05-13 19:27] LABS: Amylase 43 U/L (30-110); Lipase 51 U/L (23-300)
[2018-05-13 20:01] LABS: Basophils % (A) 1 %; Eosinophils # (A) 0.4 k/uL (0-0.7); Eosinophils % (A) 5 %; HGB 11.6 gm/dL (11.4-16.0); Hypochromasia Slight; Lymphocytes # (A) 2.4 k/uL (1.0-4.8); Lymphocytes % (A) 29 %; MCH 27.6 pg (25.0-35.0); MCHC 30.6 g/dL (31.0-37.0); MCV 90.3 fL (80.0-100.0); Monocytes # (A) 0.4 k/uL (0-1.0); Monocytes % (A) 5 %; Neutrophils # (A) 5.1 k/uL (1.3-7.7); Neutrophils % (A) 60 %; Platelet Count 298 k/uL (150-450); RBC 4.21 m/uL (3.80-5.40); RDW 13.5 % (11.5-15.5); WBC 8.5 k/uL (3.8-10.6)
[2018-05-13 20:14] LABS: ALT 88 U/L (9-52); AST 170 U/L (14-36); Albumin 3.7 g/dL (3.5-5.0); Alkaline Phosphatase 66 U/L (38-126); Anion Gap 9 mmol/L; Blood Urea Nitrogen 9 mg/dL (7-17); Calcium 9.6 mg/dL (8.4-10.2); Carbon Dioxide 23 mmol/L (22-30); Chloride 107 mmol/L (98-107); Glucose 110 mg/dL (74-99); Potassium 4.3 mmol/L (3.5-5.1); Sodium 139 mmol/L (137-145); Total Bilirubin 0.3 mg/dL (0.2-1.3); Total Protein 7.3 g/dL (6.3-8.2)
[2018-05-13 20:50] VITALS: BP 150/96; PULSE 90
== END 2018-05-13 20:51 | disposition home or self-care (01) ==
LOC: EC 17:59
DX: G89.29 Other chronic pain (principal); R10.11 Right upper quadrant pain; R11.2 Nausea with vomiting, unspecified; K58.9 Irritable bowel syndrome, unspecified; K74.60 Unspecified cirrhosis of liver; J45.909 Unspecified asthma, uncomplicated; M79.7 Fibromyalgia; K21.9 Gastro-esophageal reflux disease without esophagitis; E07.9 Disorder of thyroid, unspecified; F41.9 Anxiety disorder, unspecified; F32.9 Major depressive disorder, single episode, unspecified; F43.10 Post-traumatic stress disorder, unspecified; Z86.19 Personal history of other infectious and parasitic diseases; Z87.19 Personal history of other diseases of the digestive system; Z90.49 Acquired absence of other specified parts of digestive tract; Z79.3 Long term (current) use of hormonal contraceptives; Z79.899 Other long term (current) drug therapy; Z88.5 Allergy status to narcotic agent; Z91.018 Allergy to other foods; Z91.040 Latex allergy status; Z88.8 Allergy status to other drugs, medicaments and biological substances; Z88.0 Allergy status to penicillin; Z88.6 Allergy status to analgesic agent; Z91.013 Allergy to seafood
CPT/HCPCS: 99284 ×2; 96375 ×3; 96365 ×2; 96361; 96374; 36415; 80053; 82150; 83690; 85025; J2270; J1200; J2550

== ENCOUNTER 2018-05-20 01:20 | Emergency (ER) | payer OTHER ==
[2018-05-20 01:25] VITALS: RESP 18; TEMP 98.2
[2018-05-20] MEDS ORDERED: SODIUM CHLORIDE 0.9% 500 ML IV STA (01:27)
[2018-05-20] MEDS ORDERED: SODIUM CHLORIDE 0.9% 1,000 ML IV STA (01:27)
[2018-05-20] MEDS ORDERED: PROMETHAZINE INJ 25 MG in SODIUM CHLORIDE 0.9% 50 ML IVPB STA (01:28)
--- NOTE | 2018-05-20 02:01 | ED ---
Abdominal Pain HPI - General Chief Complaint: Abdominal Pain Stated Complaint: Nausea, vomiting Time Seen by Provider: 05/20/18 01:27 Source: patient, RN notes reviewed Mode of arrival: ambulatory Limitations: no limitations - History of Present Illness Initial Comments: This a 22-year-old female presents emergency Department chief complaint of nausea vomiting abdominal pain. Patient has chronic abdominal pain, esophagitis , liver cirrhosis, chronic vomiting. Patient states that symptoms started last day or 2 and has not been controlled by her Compazine. Patient states she's developed right-sided abdominal pain which is normal for her. She denies fever , chills, diarrhea constipation. She denies any dysuria, hematuria, back pain, flank pain, chest pain or shortness of breath. Patient states she's had no new medication changes no recent procedures. - Related Data Home Medications Medication Instructions Recorded Confirmed [place] Carbonate 900 mg PO HS 08/27/15 05/13/18 Omeprazole [PriLOSEC] 20 mg PO BID 08/27/15 05/13/18 Levothyroxine Sodium [Synthroid] 125 mcg PO QAM 01/06/17 05/13/18 Ergocalciferol [Vitamin D2 50,000 unit PO BELL 02/13/17 05/13/18 (DRISDOL)] Montelukast [Singulair] 10 mg PO HS 05/21/17 05/13/18 cloNIDine HCL [Catapres] 0.2 mg PO HS 05/21/17 05/13/18 Potassium Chloride [K-Tab ER] 10 meq PO DAILY 09/14/17 05/13/18 Famotidine [Pepcid] 20 mg PO BID 02/04/18 05/13/18 Loratadine [Claritin] 10 mg PO DAILY 02/04/18 05/13/18 Norgestimate-Ethinyl Estradiol 1 tab PO DAILY 02/04/18 05/13/18 [Sprintec 28 Day Tablet] Pioglitazone [Actos] 15 mg PO DAILY 03/20/18 05/13/18 DULoxetine HCL [Cymbalta] 20 mg PO BID 05/01/18 05/13/18 Prochlorperazine [Compazine] 5 mg PO Q8HR PRN 05/01/18 05/13/18 QUEtiapine [SEROquel] 25 mg PO HS 05/13/18 05/13/18 Allergies Allergy/AdvReac Type Severity Reaction Status Date / Time fentanyl Allergy Rash/Hives Verified 05/20/18 01:26 grape Allergy Anaphylaxis Verified 05/20/18 01:26 latex Allergy Rash/Hives Verified 05/20/18 01:26 metoclopramide [From Reglan] Allergy Unknown Verified 05/20/18 01:26 ondansetron [From Zofran] Allergy Unknown Verified 05/20/18 01:26 Penicillins Allergy Anaphylaxis Verified 05/20/18 01:26 ibuprofen [From Motrin] AdvReac GI Bleed Verified 05/20/18 01:26 prazosin AdvReac Nausea & Verified 05/20/18 01:26 Vomiting Seafood Allergy Anaphylaxis Uncoded 05/20/18 01:26 Review of Systems ROS Statement: Those systems with pertinent positive or pertinent negative responses have been documented in the HPI. ROS Other: All systems not noted in ROS Statement are negative. Past Medical History Past Medical History: Asthma, Chest Pain / Angina, Diabetes Mellitus, Fibromyalgia, GERD/Reflux, Liver Disease, Thyroid Disorder Additional Past Medical History / Comment(s): Hepatitis, Cirrhosis of the liver. Esophagalitis. Migraines. IBS. PART OF STOMACH NON-FUNCTIONING. BLOOD IN STOOL, VOMITING DAILY., History of Any Multi-Drug Resistant Organisms: None Reported Past Surgical History: Appendectomy, Cholecystectomy, Tonsillectomy Additional Past Surgical History / Comment(s): NASAL Septum repair. COLONOSCOPY., Past Anesthesia/Blood Transfusion Reactions: Motion Sickness Past Psychological History: Anxiety, Depression, PTSD Smoking Status: Never smoker Past Alcohol Use History: None Reported Past Drug Use History: None Reported - Past Family History Mother Family Medical History: No Reported History Father Family Medical History: Liver Disease Additional Family Medical History / Comment(s): cirrhosis, esophagus disease General Exam Limitations: no limitations General appearance: alert, in no apparent distress Head exam: Present: atraumatic, normocephalic, normal inspection Eye exam: Present: normal appearance, PERRL, EOMI. Absent: scleral icterus, conjunctival injection, periorbital swelling ENT exam: Present: normal exam, normal oropharynx, mucous membranes moist Neck exam: Present: normal inspection, full ROM. Absent: tenderness, meningismus, lymphadenopathy Respiratory exam: Present: normal lung sounds bilaterally. Absent: respiratory distress, wheezes, rales, rhonchi, stridor Cardiovascular Exam: Present: normal rhythm, tachycardia, normal heart sounds. Absent: systolic murmur, diastolic murmur, rubs, gallop, clicks GI/Abdominal exam: Present: soft, tenderness (Mild upper abdominal tenderness), normal bowel sounds. Absent: distended, guarding, rebound, rigid Back exam: Absent: CVA tenderness (R), CVA tenderness (L) Skin exam: Present: warm, dry, intact, normal color. Absent: rash Course Vital Signs 05/20/18 05/20/18 01:23 02:22 Temperature 98.2 F Pulse Rate 116 H 95 Respiratory 18 18 Rate Blood Pressure 108/80 116/81 O2 Sat by Pulse 98 97 Oximetry Medical Decision Making - Medical Decision Making 22-year-old female presents emergency department for abdominal discomfort, nausea vomiting. Patient has known chronic abdominal issues in which she states that she's had hepatitis, status post liver cirrhosis, probably abdominal pain nausea vomiting. Patient was given IV fluids, Phenergan symptoms have improved. Patient does have mild elevation of her liver enzymes which she's had in the past. She'll follow-up with her PCP, GI physician and return for any worsening symptoms. - Lab Data Result diagrams: 05/20/18 02:20 05/20/18 02:20 Lab Results 05/20/18 05/20/18 05/20/18 Range/Units 02:20 02:20 02:20 WBC 10.4 (3.8-10.6) k/uL RBC 4.28 (3.80-5.40) m/uL Hgb 12.0 (11.4-16.0) gm/dL Hct 37.7 (34.0-46.0) % MCV 88.0 (80.0-100.0) fL MCH 28.1 (25.0-35.0) pg MCHC 31.9 (31.0-37.0) g/dL RDW 13.5 (11.5-15.5) % Plt Count 352 (150-450) k/uL Neutrophils % 56 % Lymphocytes % 34 % Monocytes % 3 % Eosinophils % 5 % Basophils % 0 % Neutrophils # 5.8 (1.3-7.7) k/uL Lymphocytes # 3.5 (1.0-4.8) k/uL Monocytes # 0.3 (0-1.0) k/uL Eosinophils # 0.5 (0-0.7) k/uL Basophils # 0.1 (0-0.2) k/uL Sodium 142 (137-145) mmol/L Potassium 4.0 (3.5-5.1) mmol/L Chloride 108 H (98-107) mmol/L Carbon Dioxide 23 (22-30) mmol/L Anion Gap 11 mmol/L BUN 11 (7-17) mg/dL Creatinine 0.70 (0.52-1.04) mg/dL Est GFR (CKD-EPI)AfAm >90 (>60 ml/min/1.73 sqM) Est GFR (CKD-EPI)NonAf >90 (>60 ml/min/1.73 sqM) Glucose 105 H (74-99) mg/dL Calcium 9.7 (8.4-10.2) mg/dL Total Bilirubin 0.2 (0.2-1.3) mg/dL AST 419 H (14-36) U/L ALT 308 H (9-52) U/L Alkaline Phosphatase 69 (38-126) U/L Total Protein 7.4 (6.3-8.2) g/dL Albumin 3.8 (3.5-5.0) g/dL Amylase 45 (30-110) U/L Lipase 105 (23-300) U/L Urine Color Urine Appearance (Clear) Urine pH (5.0-8.0) Ur Specific [place] (1.001-1.035) Urine Protein (Negative) Urine Glucose (UA) (Negative) Urine Ketones (Negative) Urine Blood (Negative) Urine Nitrite (Negative) Urine Bilirubin (Negative) Urine Urobilinogen (<2.0) mg/dL Ur Leukocyte Esterase (Negative) Urine RBC (0-5) /hpf Urine WBC (0-5) /hpf Ur Squamous Epith Cells (0-4) /hpf Urine Mucus (None) /hpf Urine HCG, Qual Not Detected (Not Detectd) 05/20/18 Range/Units 02:20 WBC (3.8-10.6) k/uL RBC (3.80-5.40) m/uL Hgb (11.4-16.0) gm/dL Hct (34.0-46.0) % MCV (80.0-100.0) fL MCH (25.0-35.0) pg MCHC (31.0-37.0) g/dL RDW (11.5-15.5) % Plt Count (150-450) k/uL Neutrophils % % Lymphocytes % % Monocytes % % Eosinophils % % Basophils % % Neutrophils # (1.3-7.7) k/uL Lymphocytes # (1.0-4.8) k/uL Monocytes # (0-1.0) k/uL Eosinophils # (0-0.7) k/uL Basophils # (0-0.2) k/uL Sodium (137-145) mmol/L Potassium (3.5-5.1) mmol/L Chloride (98-107) mmol/L Carbon Dioxide (22-30) mmol/L Anion Gap mmol/L BUN (7-17) mg/dL Creatinine (0.52-1.04) mg/dL Est GFR (CKD-EPI)AfAm (>60 ml/min/1.73 sqM) Est GFR (CKD-EPI)NonAf (>60 ml/min/1.73 sqM) Glucose (74-99) mg/dL Calcium (8.4-10.2) mg/dL Total Bilirubin (0.2-1.3) mg/dL AST (14-36) U/L ALT (9-52) U/L Alkaline Phosphatase (38-126) U/L Total Protein (6.3-8.2) g/dL Albumin (3.5-5.0) g/dL Amylase (30-110) U/L Lipase (23-300) U/L Urine Color Yellow Urine Appearance Cloudy H (Clear) Urine pH 5.5 (5.0-8.0) Ur Specific [place] 1.024 (1.001-1.035) Urine Protein Trace H (Negative) Urine Glucose (UA) Negative (Negative) Urine Ketones Negative (Negative) Urine Blood Large H (Negative) Urine Nitrite Negative (Negative) Urine Bilirubin Negative (Negative) Urine Urobilinogen <2.0 (<2.0) mg/dL Ur Leukocyte Esterase Trace H (Negative) Urine RBC 1 (0-5) /hpf Urine WBC 3 (0-5) /hpf Ur Squamous Epith Cells 11 H (0-4) /hpf Urine Mucus Rare H (None) /hpf Urine HCG, Qual (Not Detectd) Disposition Clinical Impression: RUQ pain, Abdominal pain, Chronic abdominal pain, Nausea & vomiting Disposition: HOME SELF-CARE Condition: Stable Instructions: Abdominal Pain (ED) Additional Instructions: Please return to the Emergency Department if symptoms worsen or any other concerns. Is patient prescribed a controlled substance at d/c from ED?: No Referrals: Marysol Rose DO [Primary Care Provider] - 1-2 days Time of Disposition: 02:51
[2018-05-20 02:33] LABS: Basophils # (A) 0.1 k/uL (0-0.2); Basophils % (A) 0 %; Eosinophils # (A) 0.5 k/uL (0-0.7); Eosinophils % (A) 5 %; HCT 37.7 % (34.0-46.0); Lymphocytes # (A) 3.5 k/uL (1.0-4.8); Lymphocytes % (A) 34 %; MCH 28.1 pg (25.0-35.0); MCHC 31.9 g/dL (31.0-37.0); Mean Platelet Volume 6.9; Monocytes # (A) 0.3 k/uL (0-1.0); Monocytes % (A) 3 %; Neutrophils # (A) 5.8 k/uL (1.3-7.7); Neutrophils % (A) 56 %; Platelet Count 352 k/uL (150-450); RBC 4.28 m/uL (3.80-5.40); RDW 13.5 % (11.5-15.5); WBC 10.4 k/uL (3.8-10.6)
[2018-05-20 02:35] LABS: Appearance,Urine Cloudy (Clear); Bilirubin,Urine Negative (Negative); Blood,Urine Large (Negative); Color,Urine Yellow; Glucose,Urine (UA) Negative (Negative); Ketones,Urine Negative (Negative); Leukocyte Esterase,Urine Trace (Negative); Mucus,Urine Rare /hpf; Nitrite,Urine Negative (Negative); PH, Urine 5.5 (5.0-8.0); Protein,Urine Trace (Negative); RBC,Urine 1 /hpf (0-5); Specific Gravity,Urine 1.024 (1.001-1.035); Squamous Epithelial Cell,Urine 11 /hpf (0-4); Urobilinogen,Urine <2.0 mg/dL (<2.0); WBC,Urine 3 /hpf (0-5)
[2018-05-20 02:40] LABS: ALT 308 U/L (9-52); AST 419 U/L (14-36); Albumin 3.8 g/dL (3.5-5.0); Alkaline Phosphatase 69 U/L (38-126); Amylase 45 U/L (30-110); Anion Gap 11 mmol/L; Blood Urea Nitrogen 11 mg/dL (7-17); Calcium 9.7 mg/dL (8.4-10.2); Carbon Dioxide 23 mmol/L (22-30); Chloride 108 mmol/L (98-107); Glucose 105 mg/dL (74-99); Lipase 105 U/L (23-300); Sodium 142 mmol/L (137-145); Total Bilirubin 0.2 mg/dL (0.2-1.3); Total Protein 7.4 g/dL (6.3-8.2)
[2018-05-20] MEDS ORDERED: diphenhydrAMINE 50 MG/ML 1 ML VIAL IVP STA (02:49)
[2018-05-20] MEDS ORDERED: MORPHINE SULFATE 4 MG/ML SYRINGE IVP STA (02:49)
[2018-05-20 04:27] VITALS: BP 104/62; PULSE 85
== END 2018-05-20 04:27 | disposition home or self-care (01) ==
LOC: EC 01:20
DX: G89.29 Other chronic pain (principal); R10.11 Right upper quadrant pain; R11.2 Nausea with vomiting, unspecified; R74.8 Abnormal levels of other serum enzymes; J45.909 Unspecified asthma, uncomplicated; E11.9 Type 2 diabetes mellitus without complications; M79.7 Fibromyalgia; K21.9 Gastro-esophageal reflux disease without esophagitis; E07.9 Disorder of thyroid, unspecified; K74.60 Unspecified cirrhosis of liver; K58.9 Irritable bowel syndrome, unspecified; F41.9 Anxiety disorder, unspecified; F32.9 Major depressive disorder, single episode, unspecified; F43.10 Post-traumatic stress disorder, unspecified; Z87.19 Personal history of other diseases of the digestive system; Z86.19 Personal history of other infectious and parasitic diseases; Z83.79 Family history of other diseases of the digestive system; Z90.49 Acquired absence of other specified parts of digestive tract; Z79.3 Long term (current) use of hormonal contraceptives; Z79.84 Long term (current) use of oral hypoglycemic drugs; Z79.899 Other long term (current) drug therapy; Z88.5 Allergy status to narcotic agent; Z91.018 Allergy to other foods; Z91.040 Latex allergy status; Z88.8 Allergy status to other drugs, medicaments and biological substances; Z88.0 Allergy status to penicillin; Z88.6 Allergy status to analgesic agent; Z91.013 Allergy to seafood
CPT/HCPCS: 36415; 80053; 82150; 83690; 85025; 81001; 81025; 99284; 96374; 96375 ×2; 96361 ×2; J2270; J1200; J2550

== ENCOUNTER 2018-05-27 22:44 | Emergency (ER) | payer OTHER ==
[2018-05-27 22:53] VITALS: RESP 16
[2018-05-27] MEDS ORDERED: SODIUM CHLORIDE 0.9% 1,000 ML IV STA (23:22)
--- NOTE | 2018-05-27 23:22 | ED ---
Abdominal Pain HPI - General Chief Complaint: Abdominal Pain Stated Complaint: Side Pain Time Seen by Provider: 05/27/18 23:03 Source: patient, RN notes reviewed, old records reviewed Mode of arrival: ambulatory Limitations: no limitations - History of Present Illness Initial Comments: Patient is a 22 year old female well known to ED for complaint of nausea for a few hours prior to arrival and RUQ abdominal pain. She reports no fever or chills. She has been evaluated by [facility] specialists and has had multiple CT scans. She has had no diarrhea. She ate a turkey sandwhich today. - Related Data Home Medications Medication Instructions Recorded Confirmed [place] Carbonate 900 mg PO HS 08/27/15 06/09/18 Omeprazole [PriLOSEC] 20 mg PO BID 08/27/15 06/09/18 Levothyroxine Sodium [Synthroid] 125 mcg PO QAM 01/06/17 06/09/18 Ergocalciferol [Vitamin D2 50,000 unit PO BELL 02/13/17 06/09/18 (DRISDOL)] Montelukast [Singulair] 10 mg PO HS 05/21/17 06/09/18 cloNIDine HCL [Catapres] 0.2 mg PO HS 05/21/17 06/09/18 Potassium Chloride [K-Tab ER] 10 meq PO DAILY 09/14/17 06/09/18 Famotidine [Pepcid] 20 mg PO BID 02/04/18 06/09/18 Loratadine [Claritin] 10 mg PO DAILY 02/04/18 06/09/18 Norgestimate-Ethinyl Estradiol 1 tab PO DAILY 02/04/18 06/09/18 [Sprintec 28 Day Tablet] Pioglitazone [Actos] 15 mg PO DAILY 03/20/18 06/09/18 DULoxetine HCL [Cymbalta] 20 mg PO BID 05/01/18 06/09/18 Prochlorperazine [Compazine] 5 mg PO Q8HR PRN 05/01/18 06/09/18 QUEtiapine [SEROquel] 25 mg PO HS 05/13/18 06/09/18 Previous Rx's Medication Instructions Recorded Dicyclomine [Bentyl] 20 mg PO QID #30 tablet 06/05/18 Allergies Allergy/AdvReac Type Severity Reaction Status Date / Time fentanyl Allergy Rash/Hives Verified 06/09/18 20:16 grape Allergy Anaphylaxis Verified 06/09/18 20:16 latex Allergy Rash/Hives Verified 06/09/18 20:16 metoclopramide [From Reglan] Allergy Unknown Verified 06/09/18 20:16 ondansetron [From Zofran] Allergy Unknown Verified 06/09/18 20:16 Penicillins Allergy Anaphylaxis Verified 06/09/18 20:16 ibuprofen [From Motrin] AdvReac GI Bleed Verified 06/09/18 20:16 prazosin AdvReac Nausea & Verified 06/09/18 20:16 Vomiting Seafood Allergy Anaphylaxis Uncoded 06/09/18 20:05 Review of Systems ROS Statement: Those systems with pertinent positive or pertinent negative responses have been documented in the HPI. ROS Other: All systems not noted in ROS Statement are negative. Past Medical History Past Medical History: Asthma, Chest Pain / Angina, Diabetes Mellitus, Fibromyalgia, GERD/Reflux, Liver Disease, Thyroid Disorder Additional Past Medical History / Comment(s): Hepatitis, Cirrhosis of the liver. Esophagalitis. Migraines. IBS. PART OF STOMACH NON-FUNCTIONING. BLOOD IN STOOL, VOMITING DAILY., History of Any Multi-Drug Resistant Organisms: None Reported Past Surgical History: Appendectomy, Cholecystectomy, Tonsillectomy Additional Past Surgical History / Comment(s): NASAL Septum repair. COLONOSCOPY., Past Anesthesia/Blood Transfusion Reactions: Motion Sickness Past Psychological History: Anxiety, Depression, PTSD Smoking Status: Never smoker Past Alcohol Use History: None Reported Past Drug Use History: None Reported - Past Family History Mother Family Medical History: No Reported History Father Family Medical History: Liver Disease Additional Family Medical History / Comment(s): cirrhosis, esophagus disease General Exam - General Exam Comments Initial Comments: Well appearing 22 year old female, morbid obesity noted. Limitations: no limitations General appearance: alert, in no apparent distress Head exam: Present: atraumatic, normocephalic, normal inspection Eye exam: Present: normal appearance, PERRL, EOMI. Absent: scleral icterus, conjunctival injection, periorbital swelling ENT exam: Present: normal exam, mucous membranes moist Neck exam: Present: normal inspection. Absent: tenderness, meningismus, lymphadenopathy Respiratory exam: Present: normal lung sounds bilaterally. Absent: respiratory distress, wheezes, rales, rhonchi, stridor Cardiovascular Exam: Present: regular rate, normal rhythm, normal heart sounds. Absent: systolic murmur, diastolic murmur, rubs, gallop, clicks GI/Abdominal exam: Present: soft. Absent: distended, tenderness, guarding, rebound, rigid, normal bowel sounds (RUQ tenderness) Back exam: Present: normal inspection Neurological exam: Present: alert, oriented X3, CN II-XII intact Psychiatric exam: Present: normal affect, normal mood Skin exam: Present: warm, dry, intact, normal color. Absent: rash Course Vital Signs 05/27/18 05/28/18 22:51 01:25 Temperature 98.4 F 97 F L Pulse Rate 122 H 95 Respiratory 16 16 Rate Blood Pressure 114/73 127/67 O2 Sat by Pulse 98 96 Oximetry Medical Decision Making - Medical Decision Making 22 year old female well known to ED presents with a few hours of nausea nad vomiting, and RUQ abdominal pain. She has had intermittent elvated transaminase levels. Evaluated by multiple specialists and GI doctors. She has normal lab work today. She feels better after dose of pain medication. She arrives to ED with mother. She has been advised that no further testing today for this symptoms. Discussed return parameters. - Lab Data Result diagrams: 05/28/18 00:12 05/28/18 00:12 Lab Results 05/28/18 05/28/18 05/28/18 Range/Units 00:12 00:12 00:12 WBC 13.2 H (3.8-10.6) k/uL RBC 4.35 (3.80-5.40) m/uL Hgb 12.1 (11.4-16.0) gm/dL Hct 38.5 (34.0-46.0) % MCV 88.5 (80.0-100.0) fL MCH 27.9 (25.0-35.0) pg MCHC 31.5 (31.0-37.0) g/dL RDW 13.3 (11.5-15.5) % Plt Count 355 (150-450) k/uL Neutrophils % 56 % Lymphocytes % 33 % Monocytes % 4 % Eosinophils % 5 % Basophils % 0 % Neutrophils # 7.4 (1.3-7.7) k/uL Lymphocytes # 4.3 (1.0-4.8) k/uL Monocytes # 0.5 (0-1.0) k/uL Eosinophils # 0.7 (0-0.7) k/uL Basophils # 0.1 (0-0.2) k/uL Sodium 139 (137-145) mmol/L Potassium 4.5 (3.5-5.1) mmol/L Chloride 105 (98-107) mmol/L Carbon Dioxide 25 (22-30) mmol/L Anion Gap 9 mmol/L BUN 8 (7-17) mg/dL Creatinine 0.73 (0.52-1.04) mg/dL Est GFR (CKD-EPI)AfAm >90 (>60 ml/min/1.73 sqM) Est GFR (CKD-EPI)NonAf >90 (>60 ml/min/1.73 sqM) Glucose 90 (74-99) mg/dL Calcium 9.8 (8.4-10.2) mg/dL Total Bilirubin 0.2 (0.2-1.3) mg/dL AST 75 H (14-36) U/L ALT 103 H (9-52) U/L Alkaline Phosphatase 91 (38-126) U/L Total Protein 7.5 (6.3-8.2) g/dL Albumin 4.0 (3.5-5.0) g/dL Amylase 42 (30-110) U/L Lipase 84 (23-300) U/L Urine Color Yellow Urine Appearance Clear (Clear) Urine pH 6.0 (5.0-8.0) Ur Specific [place] 1.005 (1.001-1.035) Urine Protein Negative (Negative) Urine Glucose (UA) Negative (Negative) Urine Ketones Negative (Negative) Urine Blood Negative (Negative) Urine Nitrite Negative (Negative) Urine Bilirubin Negative (Negative) Urine Urobilinogen <2.0 (<2.0) mg/dL Ur Leukocyte Esterase Negative (Negative) Disposition Clinical Impression: Chronic abdominal pain Disposition: HOME SELF-CARE Condition: Good Instructions: Abdominal Pain (ED) Additional Instructions: Patient is to follow-up with her primary care physician. Return to emergency department if any alarming signs or symptoms occur. Is patient prescribed a controlled substance at d/c from ED?: No When asked, does pt state using other controlled substances?: No Referrals: Marysol Rose DO [Primary Care Provider] - 1-2 days Time of Disposition: 01:01
[2018-05-27] MEDS ORDERED: KETOROLAC 30 MG/ML 1 ML VIAL IVP STA (23:42)
[2018-05-27] MEDS ORDERED: ONDANSETRON 4 MG/2 ML VIAL IVP STA (23:42)
[2018-05-28 00:27] LABS: Basophils # (A) 0.1 k/uL (0-0.2); Basophils % (A) 0 %; Eosinophils # (A) 0.7 k/uL (0-0.7); Eosinophils % (A) 5 %; HCT 38.5 % (34.0-46.0); HGB 12.1 gm/dL (11.4-16.0); Lymphocytes # (A) 4.3 k/uL (1.0-4.8); Lymphocytes % (A) 33 %; MCH 27.9 pg (25.0-35.0); MCHC 31.5 g/dL (31.0-37.0); MCV 88.5 fL (80.0-100.0); Mean Platelet Volume 6.9; Monocytes # (A) 0.5 k/uL (0-1.0); Monocytes % (A) 4 %; Neutrophils # (A) 7.4 k/uL (1.3-7.7); Neutrophils % (A) 56 %; Platelet Count 355 k/uL (150-450); RBC 4.35 m/uL (3.80-5.40); RDW 13.3 % (11.5-15.5); WBC 13.2 k/uL (3.8-10.6)
[2018-05-28 00:28] LABS: Appearance,Urine Clear (Clear); Bilirubin,Urine Negative (Negative); Blood,Urine Negative (Negative); Color,Urine Yellow; Glucose,Urine (UA) Negative (Negative); Ketones,Urine Negative (Negative); Leukocyte Esterase,Urine Negative (Negative); Nitrite,Urine Negative (Negative); Protein,Urine Negative (Negative); Specific Gravity,Urine 1.005 (1.001-1.035); Urobilinogen,Urine <2.0 mg/dL (<2.0)
[2018-05-28 00:39] LABS: ALT 103 U/L (9-52); AST 75 U/L (14-36); Alkaline Phosphatase 91 U/L (38-126); Amylase 42 U/L (30-110); Anion Gap 9 mmol/L; Blood Urea Nitrogen 8 mg/dL (7-17); Calcium 9.8 mg/dL (8.4-10.2); Carbon Dioxide 25 mmol/L (22-30); Chloride 105 mmol/L (98-107); Glucose 90 mg/dL (74-99); Lipase 84 U/L (23-300); Potassium 4.5 mmol/L (3.5-5.1); Sodium 139 mmol/L (137-145); Total Bilirubin 0.2 mg/dL (0.2-1.3); Total Protein 7.5 g/dL (6.3-8.2)
[2018-05-28] MEDS ORDERED: MORPHINE SULFATE 2 MG/ML SYRINGE IVP STA (01:01)
[2018-05-28 01:26] VITALS: BP 127/67; PULSE 95; TEMP 97
== END 2018-05-28 01:26 | disposition home or self-care (01) ==
LOC: EC 22:44
DX: G89.29 Other chronic pain (principal); R10.11 Right upper quadrant pain; R11.2 Nausea with vomiting, unspecified; J45.909 Unspecified asthma, uncomplicated; E11.9 Type 2 diabetes mellitus without complications; M79.7 Fibromyalgia; K21.9 Gastro-esophageal reflux disease without esophagitis; K58.9 Irritable bowel syndrome, unspecified; E07.9 Disorder of thyroid, unspecified; K74.60 Unspecified cirrhosis of liver; F41.9 Anxiety disorder, unspecified; F32.9 Major depressive disorder, single episode, unspecified; F43.10 Post-traumatic stress disorder, unspecified; Z90.49 Acquired absence of other specified parts of digestive tract; Z79.3 Long term (current) use of hormonal contraceptives; Z79.84 Long term (current) use of oral hypoglycemic drugs; Z79.899 Other long term (current) drug therapy; Z88.5 Allergy status to narcotic agent; Z91.018 Allergy to other foods; Z91.040 Latex allergy status; Z88.8 Allergy status to other drugs, medicaments and biological substances; Z88.0 Allergy status to penicillin; Z88.6 Allergy status to analgesic agent; Z91.013 Allergy to seafood
CPT/HCPCS: 36415; 80053; 82150; 83690; 85025; 81003; 99284; 96374; 96375; 96361; J2405; J1885

== ENCOUNTER 2018-05-31 23:47 | Emergency (ER) | payer OTHER ==
[2018-06-01] MEDS ORDERED: SODIUM CHLORIDE 0.9% 1,000 ML IV STA (00:21)
[2018-06-01] MEDS ORDERED: MORPHINE SULFATE 4 MG/ML SYRINGE IV STA (00:21)
[2018-06-01] MEDS ORDERED: PROMETHAZINE INJ 25 MG/ML 1 ML VIAL IM STA (00:21)
[2018-06-01] MEDS ORDERED: DICYCLOMINE 10 MG/ML 2 ML AMP IM STA (00:21)
[2018-06-01] MEDS ORDERED: diphenhydrAMINE 50 MG/ML 1 ML VIAL IVP STA (00:21)
[2018-06-01 01:26] LABS: Basophils # (A) 0.1 k/uL (0-0.2); Basophils % (A) 1 %; Eosinophils # (A) 0.6 k/uL (0-0.7); Eosinophils % (A) 5 %; HCT 37.4 % (34.0-46.0); HGB 11.6 gm/dL (11.4-16.0); Lymphocytes # (A) 3.1 k/uL (1.0-4.8); Lymphocytes % (A) 24 %; MCH 27.4 pg (25.0-35.0); MCV 88.6 fL (80.0-100.0); Mean Platelet Volume 6.9; Monocytes # (A) 0.6 k/uL (0-1.0); Monocytes % (A) 4 %; Neutrophils # (A) 8.5 k/uL (1.3-7.7); Neutrophils % (A) 65 %; Platelet Count 316 k/uL (150-450); RBC 4.22 m/uL (3.80-5.40); RDW 13.3 % (11.5-15.5)
[2018-06-01 01:31] LABS: Appearance,Urine Clear (Clear); Bilirubin,Urine Negative (Negative); Blood,Urine Negative (Negative); Color,Urine Yellow; Glucose,Urine (UA) Negative (Negative); Ketones,Urine Negative (Negative); Leukocyte Esterase,Urine Negative (Negative); Nitrite,Urine Negative (Negative); Protein,Urine Negative (Negative); Specific Gravity,Urine 1.013 (1.001-1.035); Urobilinogen,Urine <2.0 mg/dL (<2.0)
[2018-06-01 01:39] LABS: Creatine Kinase 42 U/L (30-135)
[2018-06-01 01:41] LABS: ALT 76 U/L (9-52); AST 88 U/L (14-36); Albumin 3.8 g/dL (3.5-5.0); Alkaline Phosphatase 83 U/L (38-126); Amylase 48 U/L (30-110); Anion Gap 9 mmol/L; Blood Urea Nitrogen 8 mg/dL (7-17); Calcium 9.7 mg/dL (8.4-10.2); Carbon Dioxide 26 mmol/L (22-30); Chloride 105 mmol/L (98-107); Glucose 84 mg/dL (74-99); Lipase 76 U/L (23-300); Potassium 4.3 mmol/L (3.5-5.1); Sodium 140 mmol/L (137-145); Total Bilirubin 0.3 mg/dL (0.2-1.3); Total Protein 7.4 g/dL (6.3-8.2)
[2018-06-01 01:47] VITALS: RESP 18
[2018-06-01 01:52] LABS: Creatine Kinase MB <0.2 ng/mL (0.0-2.4); Troponin I <0.012 ng/mL (0.000-0.034)
[2018-06-01] MEDS ORDERED: MORPHINE SULFATE 4 MG/ML SYRINGE IVP STA (02:34)
--- NOTE | 2018-06-01 02:35 | ED ---
Nausea/Vomiting/Diarrhea HPI - General Source: patient Mode of arrival: ambulatory Limitations: no limitations <Ivett Denson - Last Filed: 06/01/18 05:12> <Joi Agarwal - Last Filed: 06/03/18 01:16> - General Chief complaint: Nausea/Vomiting/Diarrhea Stated complaint: Nausea,vomiting Time Seen by Provider: 06/01/18 00:15 - History of Present Illness Initial comments: 22-year-old female patient well known to this department presents to the emergency department today for evaluation of increased abdominal pain and vomiting. 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 Patient states that symptoms worsened yesterday and they have been unable to control them with her home medications. Patient states that she has had several episodes of diarrhea , there is presence of small amounts of red blood. Patient states that this is chronic for her and she has had this for some time. Patient denies any fevers or chills. States that she has been having some chest discomfort and shortness of breath. Patient denies any recent shortness breath, chest pain, back pain, numbness, tingling, dizziness, weakness, hematuria, dysuria, urinary urgency, urinary frequency, headache, visual changes, or any other complaints. Patient does have MRI scheduled of her abdomen towards the end of this month. 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 (Ivett Denson) - Related Data Home Medications Medication Instructions Recorded Confirmed [place] Carbonate 900 mg PO HS 08/27/15 05/27/18 Omeprazole [PriLOSEC] 20 mg PO BID 08/27/15 05/27/18 Levothyroxine Sodium [Synthroid] 125 mcg PO QAM 01/06/17 05/27/18 Ergocalciferol [Vitamin D2 50,000 unit PO BELL 02/13/17 05/27/18 (DRISDOL)] Montelukast [Singulair] 10 mg PO HS 05/21/17 05/27/18 cloNIDine HCL [Catapres] 0.2 mg PO HS 05/21/17 05/27/18 Potassium Chloride [K-Tab ER] 10 meq PO DAILY 09/14/17 05/27/18 Famotidine [Pepcid] 20 mg PO BID 02/04/18 05/27/18 Loratadine [Claritin] 10 mg PO DAILY 02/04/18 05/27/18 Norgestimate-Ethinyl Estradiol 1 tab PO DAILY 02/04/18 05/27/18 [Sprintec 28 Day Tablet] Pioglitazone [Actos] 15 mg PO DAILY 03/20/18 05/27/18 DULoxetine HCL [Cymbalta] 20 mg PO BID 05/01/18 05/27/18 Prochlorperazine [Compazine] 5 mg PO Q8HR PRN 05/01/18 05/27/18 QUEtiapine [SEROquel] 25 mg PO HS 05/13/18 05/27/18 Previous Rx's Medication Instructions Recorded Nitrofurantoin Monohyd/M-Cryst 100 mg PO Q12HR #14 cap 05/23/18 [Macrobid] Allergies Allergy/AdvReac Type Severity Reaction Status Date / Time fentanyl Allergy Rash/Hives Verified 05/31/18 23:57 grape Allergy Anaphylaxis Verified 05/31/18 23:57 latex Allergy Rash/Hives Verified 05/31/18 23:57 metoclopramide [From Reglan] Allergy Unknown Verified 05/31/18 23:57 ondansetron [From Zofran] Allergy Unknown Verified 05/31/18 23:57 Penicillins Allergy Anaphylaxis Verified 05/31/18 23:57 ibuprofen [From Motrin] AdvReac GI Bleed Verified 05/31/18 23:57 prazosin AdvReac Nausea & Verified 05/31/18 23:57 Vomiting Seafood Allergy Anaphylaxis Uncoded 05/31/18 23:57 Review of Systems ROS Other: All systems not noted in ROS Statement are negative. <Ivett Denson M - Last Filed: 06/01/18 05:12> ROS Other: All systems not noted in ROS Statement are negative. <Joi Agarwal - Last Filed: 06/03/18 01:16> ROS Statement: Those systems with pertinent positive or pertinent negative responses have been documented in the HPI. Past Medical History Past Medical History: Asthma, Chest Pain / Angina, Diabetes Mellitus, Fibromyalgia, GERD/Reflux, Liver Disease, Thyroid Disorder Additional Past Medical History / Comment(s): Hepatitis, Cirrhosis of the liver. Esophagalitis. Migraines. IBS. PART OF STOMACH NON-FUNCTIONING. BLOOD IN STOOL, VOMITING DAILY., History of Any Multi-Drug Resistant Organisms: None Reported Past Surgical History: Appendectomy, Cholecystectomy, Tonsillectomy Additional Past Surgical History / Comment(s): NASAL Septum repair. COLONOSCOPY., Past Anesthesia/Blood Transfusion Reactions: Motion Sickness Past Psychological History: Anxiety, Depression, PTSD Smoking Status: Never smoker Past Alcohol Use History: None Reported Past Drug Use History: None Reported - Past Family History Mother Family Medical History: No Reported History Father Family Medical History: Liver Disease Additional Family Medical History / Comment(s): cirrhosis, esophagus disease <Ivett Denson M - Last Filed: 06/01/18 05:12> General Exam Limitations: no limitations General appearance: alert, in no apparent distress, other (This is a well- developed, obese adult female patient in no acute distress. Vital signs upon presentation are temperature 98.2F, pulse 97, respirations 20, blood pressure 127/79, pulse ox 97% on room air.) Eye exam: Present: normal appearance, PERRL, EOMI. Absent: scleral icterus, conjunctival injection, periorbital swelling ENT exam: Present: normal exam, normal oropharynx, mucous membranes moist Respiratory exam: Present: normal lung sounds bilaterally. Absent: respiratory distress, wheezes, rales, rhonchi, stridor Cardiovascular Exam: Present: regular rate, normal rhythm, normal heart sounds. Absent: systolic murmur, diastolic murmur, rubs, gallop, clicks GI/Abdominal exam: Present: soft, tenderness (Midepigastric and right upper quadrant tenderness), normal bowel sounds. Absent: distended, guarding, rebound , rigid Back exam: Present: normal inspection. Absent: CVA tenderness (R), CVA tenderness (L) Neurological exam: Present: alert, oriented X3, CN II-XII intact Psychiatric exam: Present: normal affect, normal mood Skin exam: Present: warm, dry, intact, normal color. Absent: rash <Ivett Denson M - Last Filed: 06/01/18 05:12> Vital Signs 05/31/18 06/01/18 06/01/18 23:54 01:45 03:03 Temperature 98.2 F 97.9 F Pulse Rate 97 97 96 Respiratory 20 18 18 Rate Blood Pressure 127/79 122/80 120/76 O2 Sat by Pulse 97 99 99 Oximetry Medical Decision Making - Lab Data Result diagrams: 06/01/18 01:10 06/01/18 01:10 - EKG Data -: EKG Interpreted by Me <Ivett Denson - Last Filed: 06/01/18 05:12> - Lab Data Result diagrams: 06/01/18 01:10 06/01/18 01:10 <Joi Agarwal - Last Filed: 06/03/18 01:16> - Medical Decision Making 22-year-old female patient presents to the emergency department today for evaluation of increased abdominal pain and vomiting. Physical examination did reveal some midepigastric and right upper quadrant abdominal tenderness. Labs reviewed and did reveal an elevated white blood cell count at 13, AST 88, a LT 76. Liver enzymes are much improved from previous visits. It is felt that her white blood cell count is reactive from vomiting. Patient was given medication here in the emergency department, upon reevaluation she is feeling slightly improved. Patient does have MRI scheduled to end of this month, she is urged to keep those appointments. She is instructed to follow-up with her primary care physician for recheck in 1-2 days. Return parameters were discussed in detail. She verbalizes understanding and agrees with this plan. (Ivett Denson) I was available for consultation in the emergency department. The history and physical exam were done by the midlevel provider. I was consulted for this patient's care. I reviewed the case with the midlevel provider and based on their presentation of the patient, I agree with the assessment, medical decision making and plan of care as documented. (Joi Agarwal) - Lab Data Lab Results 06/01/18 06/01/18 06/01/18 Range/Units 01:10 01:10 01:10 WBC 13.0 H (3.8-10.6) k/uL RBC 4.22 (3.80-5.40) m/uL Hgb 11.6 (11.4-16.0) gm/dL Hct 37.4 (34.0-46.0) % MCV 88.6 (80.0-100.0) fL MCH 27.4 (25.0-35.0) pg MCHC 31.0 (31.0-37.0) g/dL RDW 13.3 (11.5-15.5) % Plt Count 316 (150-450) k/uL Neutrophils % 65 % Lymphocytes % 24 % Monocytes % 4 % Eosinophils % 5 % Basophils % 1 % Neutrophils # 8.5 H (1.3-7.7) k/uL Lymphocytes # 3.1 (1.0-4.8) k/uL Monocytes # 0.6 (0-1.0) k/uL Eosinophils # 0.6 (0-0.7) k/uL Basophils # 0.1 (0-0.2) k/uL Sodium 140 (137-145) mmol/L Potassium 4.3 (3.5-5.1) mmol/L Chloride 105 (98-107) mmol/L Carbon Dioxide 26 (22-30) mmol/L Anion Gap 9 mmol/L BUN 8 (7-17) mg/dL Creatinine 0.66 (0.52-1.04) mg/dL Est GFR (CKD-EPI)AfAm >90 (>60 ml/min/1.73 sqM) Est GFR (CKD-EPI)NonAf >90 (>60 ml/min/1.73 sqM) Glucose 84 (74-99) mg/dL Calcium 9.7 (8.4-10.2) mg/dL Total Bilirubin 0.3 (0.2-1.3) mg/dL AST 88 H (14-36) U/L ALT 76 H (9-52) U/L Alkaline Phosphatase 83 (38-126) U/L Total Creatine Kinase 42 (30-135) U/L CK-MB (CK-2) <0.2 (0.0-2.4) ng/mL CK-MB (CK-2) Rel Index Troponin I <0.012 (0.000-0.034) ng/mL Total Protein 7.4 (6.3-8.2) g/dL Albumin 3.8 (3.5-5.0) g/dL Amylase 48 (30-110) U/L Lipase 76 (23-300) U/L Urine Color Urine Appearance (Clear) Urine pH (5.0-8.0) Ur Specific [place] (1.001-1.035) Urine Protein (Negative) Urine Glucose (UA) (Negative) Urine Ketones (Negative) Urine Blood (Negative) Urine Nitrite (Negative) Urine Bilirubin (Negative) Urine Urobilinogen (<2.0) mg/dL Ur Leukocyte Esterase (Negative) Urine HCG, Qual (Not Detectd) 06/01/18 06/01/18 Range/Units 01:10 01:10 WBC (3.8-10.6) k/uL RBC (3.80-5.40) m/uL Hgb (11.4-16.0) gm/dL Hct (34.0-46.0) % MCV (80.0-100.0) fL MCH (25.0-35.0) pg MCHC (31.0-37.0) g/dL RDW (11.5-15.5) % Plt Count (150-450) k/uL Neutrophils % % Lymphocytes % % Monocytes % % Eosinophils % % Basophils % % Neutrophils # (1.3-7.7) k/uL Lymphocytes # (1.0-4.8) k/uL Monocytes # (0-1.0) k/uL Eosinophils # (0-0.7) k/uL Basophils # (0-0.2) k/uL Sodium (137-145) mmol/L Potassium (3.5-5.1) mmol/L Chloride (98-107) mmol/L Carbon Dioxide (22-30) mmol/L Anion Gap mmol/L BUN (7-17) mg/dL Creatinine (0.52-1.04) mg/dL Est GFR (CKD-EPI)AfAm (>60 ml/min/1.73 sqM) Est GFR (CKD-EPI)NonAf (>60 ml/min/1.73 sqM) Glucose (74-99) mg/dL Calcium (8.4-10.2) mg/dL Total Bilirubin (0.2-1.3) mg/dL AST (14-36) U/L ALT (9-52) U/L Alkaline Phosphatase (38-126) U/L Total Creatine Kinase (30-135) U/L CK-MB (CK-2) (0.0-2.4) ng/mL CK-MB (CK-2) Rel Index Troponin I (0.000-0.034) ng/mL Total Protein (6.3-8.2) g/dL Albumin (3.5-5.0) g/dL Amylase (30-110) U/L Lipase (23-300) U/L Urine Color Yellow Urine Appearance Clear (Clear) Urine pH 8.0 (5.0-8.0) Ur Specific [place] 1.013 (1.001-1.035) Urine Protein Negative (Negative) Urine Glucose (UA) Negative (Negative) Urine Ketones Negative (Negative) Urine Blood Negative (Negative) Urine Nitrite Negative (Negative) Urine Bilirubin Negative (Negative) Urine Urobilinogen <2.0 (<2.0) mg/dL Ur Leukocyte Esterase Negative (Negative) Urine HCG, Qual Not Detected (Not Detectd) - EKG Data EKG Comments: EKG obtained at 00 41 shows normal sinus rhythm with a ventricular rate of 99, SD interval 190, QRS duration 72, QT 366, QTc 469. No evidence of ST elevation or depression. (Ivett Denson) Disposition Is patient prescribed a controlled substance at d/c from ED?: No Time of Disposition: 02:35 <Ivett Denson - Last Filed: 06/01/18 05:12> <Joi Agarwal - Last Filed: 06/03/18 01:16> Clinical Impression: Chronic abdominal pain Disposition: HOME SELF-CARE Condition: Good Instructions: Acute Nausea and Vomiting (ED), Abdominal Pain (ED) Additional Instructions: Take all medications as directed. Follow-up with your primary care physician for recheck in 1-2 days. Return here immediately for any new, worsening, or concerning symptoms. Referrals: Marysol Rose DO [Primary Care Provider] - 1-2 days
[2018-06-01 03:03] VITALS: BP 120/76; PULSE 96; TEMP 97.9
== END 2018-06-01 03:03 | disposition home or self-care (01) ==
LOC: EC 23:47
DX: R10.13 Epigastric pain (principal); R10.11 Right upper quadrant pain; R11.2 Nausea with vomiting, unspecified; R19.7 Diarrhea, unspecified; J45.909 Unspecified asthma, uncomplicated; E11.9 Type 2 diabetes mellitus without complications; M79.7 Fibromyalgia; K21.9 Gastro-esophageal reflux disease without esophagitis; K58.9 Irritable bowel syndrome, unspecified; F32.9 Major depressive disorder, single episode, unspecified; F41.9 Anxiety disorder, unspecified; F43.10 Post-traumatic stress disorder, unspecified; Z86.19 Personal history of other infectious and parasitic diseases; Z79.3 Long term (current) use of hormonal contraceptives; Z79.899 Other long term (current) drug therapy; Z91.040 Latex allergy status; Z88.0 Allergy status to penicillin; Z88.6 Allergy status to analgesic agent; Z91.013 Allergy to seafood; Z91.018 Allergy to other foods; Z88.5 Allergy status to narcotic agent; Z88.8 Allergy status to other drugs, medicaments and biological substances
CPT/HCPCS: 36415; 93005; 80053; 82150; 82550; 82553; 83690; 84484; 85025; 81003; 81025; 99284; 96374; 96375; 96376; 96361; 96372 ×2; J2270; J1200; J0500; J2550

== ENCOUNTER → 2018-06-03 | Outpatient (CLI) | payer OTHER ==
--- NOTE | 2018-06-03 21:45 | MR ---
MR pelvis with and without contrast HISTORY: Periumbilical pain, pelvic pain Multiplanar multisequence and postcontrast images through the pelvis following 10 cc Gadavist IV. Correlation CT abdomen pelvis 01/10/2018 Some artifact at the level of the cervix within the vagina may be due to retained air. The uterus is somewhat elongated in shape. There are normal appearing follicles associated with the ovaries. Adenom yosis is not evident. Small phlebolith present at the left adnexal location. No sizable fibroids are evident. There is no free fluid or pelvic adenopathy. Urinary bladder is normal. Bone marrow signal is unremarkable. There may be a spinal curvature. Endometriosis is not evident. IMPRESSION: Nonspecific findings described above. Consider pelvic exam to assess for artifact at the level of the cervix.
== END | disposition home or self-care (01) ==
LOC: RADMRIMAIN 06:38
PROVIDERS: ATTEND Obstetrics & Gynecology
DX: Q51.9 Congenital malformation of uterus and cervix, unspecified (principal)
CPT/HCPCS: 72197; A9581

== ENCOUNTER 2018-06-05 20:00 | Emergency (ER) | payer OTHER ==
[2018-06-05] MEDS ORDERED: DICYCLOMINE 10 MG/ML 2 ML AMP IM STA (20:58)
[2018-06-05] MEDS ORDERED: PROMETHAZINE INJ 25 MG in SODIUM CHLORIDE 0.9% 50 ML IVPB STA (20:58)
[2018-06-05] MEDS ORDERED: SODIUM CHLORIDE 0.9% 500 ML IV ONE (20:58)
[2018-06-05] MEDS ORDERED: SODIUM CHLORIDE 0.9% 1,000 ML IV ONE (20:58)
[2018-06-05] MEDS ORDERED: diphenhydrAMINE 50 MG/ML 1 ML VIAL IVP STA (20:58)
--- NOTE | 2018-06-05 20:59 | ED ---
Abdominal Pain HPI - General Chief Complaint: Abdominal Pain Stated Complaint: abdominal pain Time Seen by Provider: 06/05/18 20:45 Source: patient Mode of arrival: ambulatory Limitations: no limitations - History of Present Illness Initial Comments: 22-year-old female patient well known to this department presents to the emergency department today for evaluation of increased abdominal pain and vomiting. 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 She is currently being worked up for possible endometriosis. Patient states that symptoms worsened approximately 3 days ago and they have been unable to control them with her home medications. States that she did have an increase in her Compazine to 10 mg and is not helping. Patient states that she has had several episodes of diarrhea, there is presence of small amounts of red blood. Patient states that this is chronic for her and she has had this for some time. Patient denies any fevers or chills. States that she has been having some chest discomfort and shortness of breath. Patient denies any recent shortness breath, chest pain, back pain, numbness, tingling, dizziness, weakness, hematuria, dysuria, urinary urgency, urinary frequency, headache, visual changes, or any other complaints. Patient does have MRI scheduled of her abdomen towards the end of this month. 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 - Related Data Home Medications Medication Instructions Recorded Confirmed [place] Carbonate 900 mg PO HS 08/27/15 06/05/18 Omeprazole [PriLOSEC] 20 mg PO BID 08/27/15 06/05/18 Levothyroxine Sodium [Synthroid] 125 mcg PO QAM 01/06/17 06/05/18 Ergocalciferol [Vitamin D2 50,000 unit PO BELL 02/13/17 06/05/18 (DRISDOL)] Montelukast [Singulair] 10 mg PO HS 05/21/17 06/05/18 cloNIDine HCL [Catapres] 0.2 mg PO HS 05/21/17 06/05/18 Potassium Chloride [K-Tab ER] 10 meq PO DAILY 09/14/17 06/05/18 Famotidine [Pepcid] 20 mg PO BID 02/04/18 06/05/18 Loratadine [Claritin] 10 mg PO DAILY 02/04/18 06/05/18 Norgestimate-Ethinyl Estradiol 1 tab PO DAILY 02/04/18 06/05/18 [Sprintec 28 Day Tablet] Pioglitazone [Actos] 15 mg PO DAILY 03/20/18 06/05/18 DULoxetine HCL [Cymbalta] 20 mg PO BID 05/01/18 06/05/18 Prochlorperazine [Compazine] 5 mg PO Q8HR PRN 05/01/18 06/05/18 QUEtiapine [SEROquel] 25 mg PO HS 05/13/18 06/05/18 Previous Rx's Medication Instructions Recorded Dicyclomine [Bentyl] 20 mg PO QID #30 tablet 06/05/18 Allergies Allergy/AdvReac Type Severity Reaction Status Date / Time fentanyl Allergy Rash/Hives Verified 06/05/18 20:57 grape Allergy Anaphylaxis Verified 06/05/18 20:57 latex Allergy Rash/Hives Verified 06/05/18 20:57 metoclopramide [From Reglan] Allergy Unknown Verified 06/05/18 20:57 ondansetron [From Zofran] Allergy Unknown Verified 06/05/18 20:57 Penicillins Allergy Anaphylaxis Verified 06/05/18 20:57 ibuprofen [From Motrin] AdvReac GI Bleed Verified 06/05/18 20:57 prazosin AdvReac Nausea & Verified 06/05/18 20:57 Vomiting Seafood Allergy Anaphylaxis Uncoded 06/05/18 20:45 Review of Systems ROS Statement: Those systems with pertinent positive or pertinent negative responses have been documented in the HPI. ROS Other: All systems not noted in ROS Statement are negative. Past Medical History Past Medical History: Asthma, Chest Pain / Angina, Diabetes Mellitus, Fibromyalgia, GERD/Reflux, Liver Disease, Thyroid Disorder Additional Past Medical History / Comment(s): Hepatitis, Cirrhosis of the liver. Esophagalitis. Migraines. IBS. PART OF STOMACH NON-FUNCTIONING. BLOOD IN STOOL, VOMITING DAILY., History of Any Multi-Drug Resistant Organisms: None Reported Past Surgical History: Appendectomy, Cholecystectomy, Tonsillectomy Additional Past Surgical History / Comment(s): NASAL Septum repair. COLONOSCOPY., Past Anesthesia/Blood Transfusion Reactions: Motion Sickness Past Psychological History: Anxiety, Depression, PTSD Smoking Status: Never smoker Past Alcohol Use History: None Reported Past Drug Use History: None Reported - Past Family History Mother Family Medical History: No Reported History Father Family Medical History: Liver Disease Additional Family Medical History / Comment(s): cirrhosis, esophagus disease General Exam Limitations: no limitations General appearance: alert, in no apparent distress, other (Some well-developed, well-nourished adult female patient in no acute distress. Vital signs upon presentation are temperature 98.5F, pulse 118, respirations 22, blood pressure 140/88, pulse ox 96% on room air.) Eye exam: Present: normal appearance, PERRL, EOMI. Absent: scleral icterus, conjunctival injection, periorbital swelling ENT exam: Present: normal exam, normal oropharynx, mucous membranes moist Respiratory exam: Present: normal lung sounds bilaterally. Absent: respiratory distress, wheezes, rales, rhonchi, stridor Cardiovascular Exam: Present: regular rate, normal rhythm, normal heart sounds. Absent: systolic murmur, diastolic murmur, rubs, gallop, clicks GI/Abdominal exam: Present: soft, tenderness (Right upper quadrant and midepigastric tenderness), normal bowel sounds. Absent: distended, guarding, rebound, rigid Neurological exam: Present: alert, oriented X3, CN II-XII intact Psychiatric exam: Present: normal affect, normal mood Skin exam: Present: warm, dry, intact, normal color. Absent: rash Course Vital Signs 06/05/18 06/05/18 20:42 22:35 Temperature 98.5 F 98.1 F Pulse Rate 118 H 99 Respiratory 22 18 Rate Blood Pressure 140/88 113/56 O2 Sat by Pulse 96 99 Oximetry Medical Decision Making - Medical Decision Making 22-year-old female patient with chronic abdominal pain and vomiting well known to our department presents to the emergency department today for evaluation of increased pain, vomiting, diarrhea. Physical examination did reveal some midepigastric and right upper quadrant abdominal tenderness. Labs reviewed and are unremarkable. Patient symptoms did improve with administration of Phenergan and Bentyl. She'll be discharged home at this time to follow-up with her primary care physician and her specialist at [facility] she has planned. Return parameters were discussed in detail patient verbalizes understanding and agrees with this plan. - Lab Data Result diagrams: 06/05/18 21:26 06/05/18 21:26 Lab Results 06/05/18 06/05/18 06/05/18 Range/Units 21:26 21:26 21:26 WBC 12.3 H (3.8-10.6) k/uL RBC 4.50 (3.80-5.40) m/uL Hgb 12.8 (11.4-16.0) gm/dL Hct 39.0 (34.0-46.0) % MCV 86.6 (80.0-100.0) fL MCH 28.4 (25.0-35.0) pg MCHC 32.8 (31.0-37.0) g/dL RDW 13.7 (11.5-15.5) % Plt Count 322 (150-450) k/uL Neutrophils % 65 % Lymphocytes % 24 % Monocytes % 4 % Eosinophils % 5 % Basophils % 0 % Neutrophils # 8.0 H (1.3-7.7) k/uL Lymphocytes # 3.0 (1.0-4.8) k/uL Monocytes # 0.5 (0-1.0) k/uL Eosinophils # 0.6 (0-0.7) k/uL Basophils # 0.0 (0-0.2) k/uL Sodium 139 (137-145) mmol/L Potassium 4.3 (3.5-5.1) mmol/L Chloride 106 (98-107) mmol/L Carbon Dioxide 22 (22-30) mmol/L Anion Gap 11 mmol/L BUN 9 (7-17) mg/dL Creatinine 0.71 (0.52-1.04) mg/dL Est GFR (CKD-EPI)AfAm >90 (>60 ml/min/1.73 sqM) Est GFR (CKD-EPI)NonAf >90 (>60 ml/min/1.73 sqM) Glucose 91 (74-99) mg/dL Calcium 9.9 (8.4-10.2) mg/dL Total Bilirubin 0.4 (0.2-1.3) mg/dL AST 128 H (14-36) U/L ALT 97 H (9-52) U/L Alkaline Phosphatase 92 (38-126) U/L Total Protein 7.8 (6.3-8.2) g/dL Albumin 4.1 (3.5-5.0) g/dL Amylase 48 (30-110) U/L Lipase 71 (23-300) U/L Urine Color Yellow Urine Appearance Cloudy H (Clear) Urine pH 5.5 (5.0-8.0) Ur Specific [place] 1.015 (1.001-1.035) Urine Protein Negative (Negative) Urine Glucose (UA) Negative (Negative) Urine Ketones Negative (Negative) Urine Blood Negative (Negative) Urine Nitrite Negative (Negative) Urine Bilirubin Negative (Negative) Urine Urobilinogen <2.0 (<2.0) mg/dL Ur Leukocyte Esterase Small H (Negative) Urine RBC 2 (0-5) /hpf Urine WBC 15 H (0-5) /hpf Ur Squamous Epith Cells 31 H (0-4) /hpf Amorphous Sediment Occasional H (None) /hpf Urine Mucus Rare H (None) /hpf Disposition Clinical Impression: Abdominal pain Disposition: HOME SELF-CARE Condition: Good Instructions: Acute Nausea and Vomiting (ED), Acute Diarrhea (ED), Abdominal Pain (ED) Additional Instructions: Take all medication as directed. Follow-up with your primary care physician, and specialist at [facility] as you have planned. Return here immediately for any new, worsening, or concerning symptoms. Prescriptions: Dicyclomine [Bentyl] 20 mg PO QID #30 tablet Is patient prescribed a controlled substance at d/c from ED?: No Referrals: Marysol Rose DO [Primary Care Provider] - 1-2 days Time of Disposition: 22:26
[2018-06-05 21:48] LABS: Basophils % (A) 0 %; Eosinophils # (A) 0.6 k/uL (0-0.7); Eosinophils % (A) 5 %; HGB 12.8 gm/dL (11.4-16.0); Lymphocytes % (A) 24 %; MCH 28.4 pg (25.0-35.0); MCHC 32.8 g/dL (31.0-37.0); MCV 86.6 fL (80.0-100.0); Mean Platelet Volume 7.5; Monocytes # (A) 0.5 k/uL (0-1.0); Monocytes % (A) 4 %; Neutrophils % (A) 65 %; Platelet Count 322 k/uL (150-450); RDW 13.7 % (11.5-15.5); WBC 12.3 k/uL (3.8-10.6)
[2018-06-05 21:58] LABS: ALT 97 U/L (9-52); AST 128 U/L (14-36); Albumin 4.1 g/dL (3.5-5.0); Alkaline Phosphatase 92 U/L (38-126); Amylase 48 U/L (30-110); Anion Gap 11 mmol/L; Blood Urea Nitrogen 9 mg/dL (7-17); Calcium 9.9 mg/dL (8.4-10.2); Carbon Dioxide 22 mmol/L (22-30); Chloride 106 mmol/L (98-107); Glucose 91 mg/dL (74-99); Lipase 71 U/L (23-300); Potassium 4.3 mmol/L (3.5-5.1); Sodium 139 mmol/L (137-145); Total Bilirubin 0.4 mg/dL (0.2-1.3); Total Protein 7.8 g/dL (6.3-8.2)
[2018-06-05 22:24] LABS: Amorphous Sediment,Urine Occasional /hpf; Appearance,Urine Cloudy (Clear); Bilirubin,Urine Negative (Negative); Blood,Urine Negative (Negative); Color,Urine Yellow; Glucose,Urine (UA) Negative (Negative); Ketones,Urine Negative (Negative); Leukocyte Esterase,Urine Small (Negative); Mucus,Urine Rare /hpf; Nitrite,Urine Negative (Negative); PH, Urine 5.5 (5.0-8.0); Protein,Urine Negative (Negative); RBC,Urine 2 /hpf (0-5); Specific Gravity,Urine 1.015 (1.001-1.035); Squamous Epithelial Cell,Urine 31 /hpf (0-4); Urobilinogen,Urine <2.0 mg/dL (<2.0); WBC,Urine 15 /hpf (0-5)
[2018-06-05 22:36] VITALS: BP 113/56; PULSE 99; RESP 18; TEMP 98.1
== END 2018-06-05 22:36 | disposition home or self-care (01) ==
LOC: EC 20:00
DX: R10.11 Right upper quadrant pain (principal); R10.13 Epigastric pain; R11.10 Vomiting, unspecified; R19.7 Diarrhea, unspecified; J45.909 Unspecified asthma, uncomplicated; E11.9 Type 2 diabetes mellitus without complications; K21.9 Gastro-esophageal reflux disease without esophagitis; K58.9 Irritable bowel syndrome, unspecified; E07.9 Disorder of thyroid, unspecified; F32.9 Major depressive disorder, single episode, unspecified; F41.9 Anxiety disorder, unspecified; F43.10 Post-traumatic stress disorder, unspecified; Z79.3 Long term (current) use of hormonal contraceptives; Z79.899 Other long term (current) drug therapy; Z91.013 Allergy to seafood; Z88.5 Allergy status to narcotic agent; Z91.040 Latex allergy status; Z88.0 Allergy status to penicillin; Z88.6 Allergy status to analgesic agent; Z91.018 Allergy to other foods; Z88.8 Allergy status to other drugs, medicaments and biological substances; Z90.49 Acquired absence of other specified parts of digestive tract
CPT/HCPCS: 36415; 80053; 82150; 83690; 85025; 81001; 87086; 99284; 96374; 96375; 96361; 96372; J1200; J0500; J2550

== ENCOUNTER 2018-06-09 19:22 | Emergency (ER) | payer OTHER ==
[2018-06-09 20:06] VITALS: BP 141/92; PULSE 102; RESP 20; TEMP 98.7
[2018-06-09] MEDS ORDERED: MORPHINE SULFATE 4 MG/ML SYRINGE IM STA (20:43)
[2018-06-09] MEDS ORDERED: LORazepam 1 MG TAB PO STA (20:43)
--- NOTE | 2018-06-09 20:45 | ED ---
Abdominal Pain HPI - General Chief Complaint: Abdominal Pain Stated Complaint: side pain/anxiety Time Seen by Provider: 06/09/18 20:29 Source: patient Mode of arrival: ambulatory Limitations: no limitations - History of Present Illness Initial Comments: 22-year-old female patient well known to our department with chronic abdominal pain and vomiting presents to the emergency department today for evaluation of increased anxiety and right upper quadrant pain. Patient states that her father is currently admitted to this facility and was placed on hospice today. States that this has increased her anxiety. States that she has had anxiety for quite some time and is usually able to control her symptoms on her own without medication. States that today she tried her usual methods and was unable to do so. Patient is also reporting some right upper quadrant abdominal pain. States that this pain is consistent with her usual chronic abdominal pain. States it actually feels better today than a normal day. Patient states she did have one episode of vomiting earlier today but has had no further episodes. She denies any fevers or chills with this. Denies any hematuria, dysuria, urinary frequency, urinary urgency. Patient has had cholecystectomy in the past. Patient denies any recent rash, shortness breath, chest pain, back pain, numbness, tingling, dizziness, weakness, headache, visual changes, or any other complaints. - Related Data Home Medications Medication Instructions Recorded Confirmed [place] Carbonate 900 mg PO HS 08/27/15 06/09/18 Omeprazole [PriLOSEC] 20 mg PO BID 08/27/15 06/09/18 Levothyroxine Sodium [Synthroid] 125 mcg PO QAM 01/06/17 06/09/18 Ergocalciferol [Vitamin D2 50,000 unit PO BELL 02/13/17 06/09/18 (DRISDOL)] Montelukast [Singulair] 10 mg PO HS 05/21/17 06/09/18 cloNIDine HCL [Catapres] 0.2 mg PO HS 05/21/17 06/09/18 Potassium Chloride [K-Tab ER] 10 meq PO DAILY 09/14/17 06/09/18 Famotidine [Pepcid] 20 mg PO BID 02/04/18 06/09/18 Loratadine [Claritin] 10 mg PO DAILY 02/04/18 06/09/18 Norgestimate-Ethinyl Estradiol 1 tab PO DAILY 02/04/18 06/09/18 [Sprintec 28 Day Tablet] Pioglitazone [Actos] 15 mg PO DAILY 03/20/18 06/09/18 DULoxetine HCL [Cymbalta] 20 mg PO BID 05/01/18 06/09/18 Prochlorperazine [Compazine] 5 mg PO Q8HR PRN 05/01/18 06/09/18 QUEtiapine [SEROquel] 25 mg PO HS 05/13/18 06/09/18 Previous Rx's Medication Instructions Recorded Dicyclomine [Bentyl] 20 mg PO QID #30 tablet 06/05/18 Allergies Allergy/AdvReac Type Severity Reaction Status Date / Time fentanyl Allergy Rash/Hives Verified 06/09/18 20:16 grape Allergy Anaphylaxis Verified 06/09/18 20:16 latex Allergy Rash/Hives Verified 06/09/18 20:16 metoclopramide [From Reglan] Allergy Unknown Verified 06/09/18 20:16 ondansetron [From Zofran] Allergy Unknown Verified 06/09/18 20:16 Penicillins Allergy Anaphylaxis Verified 06/09/18 20:16 ibuprofen [From Motrin] AdvReac GI Bleed Verified 06/09/18 20:16 prazosin AdvReac Nausea & Verified 06/09/18 20:16 Vomiting Seafood Allergy Anaphylaxis Uncoded 06/09/18 20:05 Review of Systems ROS Statement: Those systems with pertinent positive or pertinent negative responses have been documented in the HPI. ROS Other: All systems not noted in ROS Statement are negative. Past Medical History Past Medical History: Asthma, Chest Pain / Angina, Diabetes Mellitus, Fibromyalgia, GERD/Reflux, Liver Disease, Thyroid Disorder Additional Past Medical History / Comment(s): Hepatitis, Cirrhosis of the liver. Esophagalitis. Migraines. IBS. PART OF STOMACH NON-FUNCTIONING. BLOOD IN STOOL, VOMITING DAILY., History of Any Multi-Drug Resistant Organisms: None Reported Past Surgical History: Appendectomy, Cholecystectomy, Tonsillectomy Additional Past Surgical History / Comment(s): NASAL Septum repair. COLONOSCOPY., Past Anesthesia/Blood Transfusion Reactions: Motion Sickness Past Psychological History: Anxiety, Depression, PTSD Smoking Status: Never smoker Past Alcohol Use History: None Reported Past Drug Use History: None Reported - Past Family History Mother Family Medical History: No Reported History Father Family Medical History: Liver Disease Additional Family Medical History / Comment(s): cirrhosis, esophagus disease General Exam Limitations: no limitations General appearance: alert, in no apparent distress, other (This is a well- developed, well-nourished adult female patient in no acute distress. Vital signs upon presentation are temperature 98.7F, pulse 102, respirations 20, blood pressure 141/92, pulse ox 98% on room air.) Eye exam: Present: normal appearance, PERRL, EOMI. Absent: scleral icterus, conjunctival injection, periorbital swelling ENT exam: Present: normal exam, normal oropharynx, mucous membranes moist Respiratory exam: Present: normal lung sounds bilaterally. Absent: respiratory distress, wheezes, rales, rhonchi, stridor Cardiovascular Exam: Present: regular rate, normal rhythm, normal heart sounds. Absent: systolic murmur, diastolic murmur, rubs, gallop, clicks GI/Abdominal exam: Present: soft, tenderness (Right upper quadrant tenderness), normal bowel sounds. Absent: distended, guarding, rebound, rigid Neurological exam: Present: alert, oriented X3, CN II-XII intact Psychiatric exam: Present: normal affect, normal mood Skin exam: Present: warm, dry, intact, normal color. Absent: rash Course Vital Signs 06/09/18 20:04 Temperature 98.7 F Pulse Rate 102 H Respiratory 20 Rate Blood Pressure 141/92 O2 Sat by Pulse 98 Oximetry Medical Decision Making - Medical Decision Making 22-year-old female patient with past medical history significant for chronic abdominal pain, hepatitis, and cirrhosis presents to the emergency department today for evaluation of increased anxiety and right upper quadrant abdominal pain. Physical examination did reveal some mild tenderness over the right upper quadrant. Patient states that her pain today is actually better than it usually is. States that she had one episode of vomiting earlier in the day and has had no further episodes. States that she has kept down food and fluids since that episode. Patient is having increased anxiety because her father was placed on hospice today. I did review labs that patient had performed 4 days ago, those labs were unremarkable. I did discuss this with the patient and did offer to provide her with pain medication and anxiety medication. She does feel comfortable with this plan and will be discharged home to follow-up with her primary care physician. Return parameters were discussed in detail. She verbalizes understanding and agrees with this plan. Disposition Clinical Impression: Chronic abdominal pain, Anxiety Disposition: HOME SELF-CARE Condition: Good Instructions: Generalized Anxiety Disorder (ED), Abdominal Pain (ED) Additional Instructions: Continue taking all meds as directed. Follow-up with her primary care physician for recheck in 1-2 days. Return here immediately for any new, worsening, or concerning symptoms. Is patient prescribed a controlled substance at d/c from ED?: No Referrals: Marysol Rose DO [Primary Care Provider] - 1-2 days Time of Disposition: 20:45
== END 2018-06-09 20:54 | disposition home or self-care (01) ==
LOC: EC 19:22
DX: G89.29 Other chronic pain (principal); R10.11 Right upper quadrant pain; F41.9 Anxiety disorder, unspecified; E11.9 Type 2 diabetes mellitus without complications; M79.7 Fibromyalgia; K21.9 Gastro-esophageal reflux disease without esophagitis; E07.9 Disorder of thyroid, unspecified; F32.9 Major depressive disorder, single episode, unspecified; J45.909 Unspecified asthma, uncomplicated; Z90.49 Acquired absence of other specified parts of digestive tract; Z88.0 Allergy status to penicillin; Z88.5 Allergy status to narcotic agent; Z88.6 Allergy status to analgesic agent; Z88.8 Allergy status to other drugs, medicaments and biological substances; Z91.013 Allergy to seafood; Z91.018 Allergy to other foods; Z91.040 Latex allergy status; Z79.3 Long term (current) use of hormonal contraceptives; Z79.84 Long term (current) use of oral hypoglycemic drugs; Z79.899 Other long term (current) drug therapy
CPT/HCPCS: 99283; 96372; J2270

== ENCOUNTER 2018-06-11 20:23 | Emergency (ER) | payer OTHER ==
[2018-06-11 20:29] VITALS: TEMP 98.2
[2018-06-11] MEDS ORDERED: SODIUM CHLORIDE 0.9% 1,000 ML IV STA (20:33)
[2018-06-11 21:08] LABS: Basophils % (A) 0 %; Eosinophils # (A) 0.6 k/uL (0-0.7); Eosinophils % (A) 5 %; HCT 38.8 % (34.0-46.0); HGB 11.9 gm/dL (11.4-16.0); Lymphocytes # (A) 3.3 k/uL (1.0-4.8); Lymphocytes % (A) 30 %; MCH 27.2 pg (25.0-35.0); MCHC 30.8 g/dL (31.0-37.0); MCV 88.4 fL (80.0-100.0); Mean Platelet Volume 6.9; Monocytes # (A) 0.3 k/uL (0-1.0); Monocytes % (A) 3 %; Neutrophils # (A) 6.5 k/uL (1.3-7.7); Neutrophils % (A) 60 %; Platelet Count 372 k/uL (150-450); RBC 4.39 m/uL (3.80-5.40); RDW 13.4 % (11.5-15.5); WBC 10.9 k/uL (3.8-10.6)
[2018-06-11 21:09] LABS: Appearance,Urine Cloudy (Clear); Bacteria,Urine Rare /hpf; Bilirubin,Urine Negative (Negative); Blood,Urine Negative (Negative); Color,Urine Yellow; Glucose,Urine (UA) Negative (Negative); Ketones,Urine Negative (Negative); Leukocyte Esterase,Urine Trace (Negative); Mucus,Urine Occasional /hpf; Nitrite,Urine Negative (Negative); Protein,Urine Negative (Negative); RBC,Urine 1 /hpf (0-5); Squamous Epithelial Cell,Urine 10 /hpf (0-4); Urobilinogen,Urine <2.0 mg/dL (<2.0); WBC,Urine 2 /hpf (0-5)
[2018-06-11 21:25] LABS: ALT 115 U/L (9-52); AST 104 U/L (14-36); Alkaline Phosphatase 84 U/L (38-126); Amylase 38 U/L (30-110); Anion Gap 9 mmol/L; Blood Urea Nitrogen 10 mg/dL (7-17); Calcium 9.9 mg/dL (8.4-10.2); Carbon Dioxide 24 mmol/L (22-30); Chloride 106 mmol/L (98-107); Glucose 114 mg/dL (74-99); Lipase 77 U/L (23-300); Potassium 4.4 mmol/L (3.5-5.1); Sodium 139 mmol/L (137-145); Total Bilirubin 0.3 mg/dL (0.2-1.3); Total Protein 7.8 g/dL (6.3-8.2)
--- NOTE | 2018-06-11 21:53 | ED ---
Abdominal Pain HPI - General Chief Complaint: Abdominal Pain Stated Complaint: Abd pain Time Seen by Provider: 06/11/18 20:32 Source: patient Mode of arrival: ambulatory Limitations: no limitations - History of Present Illness Initial Comments: Chana is a 22-year-old morbidly obese female with a history of hepatitis of uncertain etiology who presents to the emergency department for persistent nausea, vomiting and abdominal pain. Patient is seen for this quite frequently. Patient states that she has chronic abdominal pain, her pain becomes worse after she has episodes of vomiting. Multiple specialists, she's had a cholecystectomy. For to [facility] for further GI evaluation. Patient states that she's been told by her GI that she can't take any oral pain meds because they are metabolizing whatever so she has to come to the ER whenever she is in pain for IV medications. Reports that yesterday evening she had persistent nausea and multiple episodes of nonbloody nonbilious emesis. Because of that she developed some epigastric and right upper quadrant abdominal pain which prompted her to come to the ER for pain management and women of her nausea. Patient reports that she was previously on Zofran but was found to have tachycardia with a prolonged QT on EKG and her Zofran was discontinued. She now takes by mouth Compazine but reports that this does not always help her nausea. - Related Data Home Medications Medication Instructions Recorded Confirmed [place] Carbonate 900 mg PO HS 08/27/15 06/09/18 Omeprazole [PriLOSEC] 20 mg PO BID 08/27/15 06/09/18 Levothyroxine Sodium [Synthroid] 125 mcg PO QAM 01/06/17 06/09/18 Ergocalciferol [Vitamin D2 50,000 unit PO BELL 02/13/17 06/09/18 (DRISDOL)] Montelukast [Singulair] 10 mg PO HS 05/21/17 06/09/18 cloNIDine HCL [Catapres] 0.2 mg PO HS 05/21/17 06/09/18 Potassium Chloride [K-Tab ER] 10 meq PO DAILY 09/14/17 06/09/18 Famotidine [Pepcid] 20 mg PO BID 02/04/18 06/09/18 Loratadine [Claritin] 10 mg PO DAILY 02/04/18 06/09/18 Norgestimate-Ethinyl Estradiol 1 tab PO DAILY 02/04/18 06/09/18 [Sprintec 28 Day Tablet] Pioglitazone [Actos] 15 mg PO DAILY 03/20/18 06/09/18 DULoxetine HCL [Cymbalta] 20 mg PO BID 05/01/18 06/09/18 Prochlorperazine [Compazine] 5 mg PO Q8HR PRN 05/01/18 06/09/18 QUEtiapine [SEROquel] 25 mg PO HS 05/13/18 06/09/18 Previous Rx's Medication Instructions Recorded Dicyclomine [Bentyl] 20 mg PO QID #30 tablet 06/05/18 Trimethobenzamide [Tigan] 300 mg PO TID #12 capsule 06/12/18 Allergies Allergy/AdvReac Type Severity Reaction Status Date / Time fentanyl Allergy Rash/Hives Verified 06/11/18 20:29 grape Allergy Anaphylaxis Verified 06/11/18 20:29 latex Allergy Rash/Hives Verified 06/11/18 20:29 metoclopramide [From Reglan] Allergy Unknown Verified 06/11/18 20:29 ondansetron [From Zofran] Allergy Unknown Verified 06/11/18 20:29 Penicillins Allergy Anaphylaxis Verified 06/11/18 20:29 ibuprofen [From Motrin] AdvReac GI Bleed Verified 06/11/18 20:29 prazosin AdvReac Nausea & Verified 06/11/18 20:29 Vomiting Seafood Allergy Anaphylaxis Uncoded 06/11/18 20:29 Review of Systems ROS Statement: Those systems with pertinent positive or pertinent negative responses have been documented in the HPI. ROS Other: All systems not noted in ROS Statement are negative. Past Medical History Past Medical History: Asthma, Chest Pain / Angina, Diabetes Mellitus, Fibromyalgia, GERD/Reflux, Liver Disease, Thyroid Disorder Additional Past Medical History / Comment(s): Hepatitis, Cirrhosis of the liver. Esophagalitis. Migraines. IBS. PART OF STOMACH NON-FUNCTIONING. BLOOD IN STOOL, VOMITING DAILY., History of Any Multi-Drug Resistant Organisms: None Reported Past Surgical History: Appendectomy, Cholecystectomy, Tonsillectomy Additional Past Surgical History / Comment(s): NASAL Septum repair. COLONOSCOPY., Past Anesthesia/Blood Transfusion Reactions: Motion Sickness Past Psychological History: Anxiety, Depression, PTSD Smoking Status: Never smoker Past Alcohol Use History: None Reported Past Drug Use History: None Reported - Past Family History Mother Family Medical History: No Reported History Father Family Medical History: Liver Disease Additional Family Medical History / Comment(s): cirrhosis, esophagus disease General Exam - General Exam Comments Initial Comments: GENERAL: Morbidly obese, chronically ill appearing, cushingoid appearance HENT: Normocephalic, Atraumatic. Neck is soft and supple. No significant lymphadenopathy is noted. Oropharynx is clear. Moist mucous membranes. Neck has full range of motion without eliciting any pain. EYES: The sclera were anicteric and conjunctiva were pink and moist. Extraocular movements were intact and pupils were equal round and reactive to light. Eyelids were unremarkable. PULMONARY: Unlabored respirations. Good breath sounds bilaterally. No audible rales rhonchi or wheezing was noted. CARDIOVASCULAR: Tachycardic regular ABDOMEN: Soft and nontender with normal bowel sounds. SKIN: Skin is clear with no lesions or rashes and otherwise unremarkable. NEUROLOGIC: Patient is alert and oriented x3. Cranial nerves II through XII are grossly intact. Motor and sensory are also intact. Normal speech, volume and content. Symmetrical smile. MUSCULOSKELETAL: Normal extremities with adequate strength and full range of motion. No lower extremity swelling or edema. No calf tenderness. LYMPHATICS: No significant lymphadenopathy is noted PSYCHIATRIC: Helpless affect Limitations: no limitations Limitations: no limitations Course Vital Signs 06/11/18 06/12/18 20:28 00:39 Temperature 98.2 F Pulse Rate 119 H 96 Respiratory 18 16 Rate Blood Pressure 97/64 138/92 O2 Sat by Pulse 97 98 Oximetry Medical Decision Making - Medical Decision Making The patient was seen and evaluated history was obtained from the patient and review of medical records 22-year-old female who comes to the ER multiple times per week for IV narcotics are treatment of her chronic abdominal pain. Reports that her planning manager and primary care physician have advised her that she cannot take by mouth medications due to her liver disease. Ordered. Labs at baseline. Patient received 1 L IV fluids. EKG was ordered to assess for QT, as the patient has had a positive response to Zofran in the past however has intermittently had prolonged QT By mouth morphine was ordered as I don't feel there is any indication for IV medications Patient received PO Tigan and Morphine, reports resolution of nausea and pain. Continue dietary modifications including avoiding carbs, hypertrophic corn syrup , removing soda from her diet. Were discussed with the patient. In addition I will prescribe Tigan as this seemed to work well for the patient. Advised patient to follow up with gastroenterology. I don't long discussion with the patient and her mother regarding her chronic pain. I advised her that I feel she needs a follow-up with a paint factory worker to discuss alternative modalities to managing her pain aside from narcotic medication. Patient mother agreeable to this. Mother has been seen by pain management here in the past. I will refer them to pulmonary. I discussed with the patient that she will likely have therapy to develop coping mechanisms for her chronic pain. Patient is agreeable to this plan. Patient has follow up with Juan scheduled for Saturday of this week . - Lab Data Result diagrams: 06/11/18 20:46 06/11/18 20:46 Lab Results 06/11/18 06/11/18 06/11/18 Range/Units 20:45 20:45 20:46 WBC (3.8-10.6) k/uL RBC (3.80-5.40) m/uL Hgb (11.4-16.0) gm/dL Hct (34.0-46.0) % MCV (80.0-100.0) fL MCH (25.0-35.0) pg MCHC (31.0-37.0) g/dL RDW (11.5-15.5) % Plt Count (150-450) k/uL Neutrophils % % Lymphocytes % % Monocytes % % Eosinophils % % Basophils % % Neutrophils # (1.3-7.7) k/uL Lymphocytes # (1.0-4.8) k/uL Monocytes # (0-1.0) k/uL Eosinophils # (0-0.7) k/uL Basophils # (0-0.2) k/uL Sodium 139 (137-145) mmol/L Potassium 4.4 (3.5-5.1) mmol/L Chloride 106 (98-107) mmol/L Carbon Dioxide 24 (22-30) mmol/L Anion Gap 9 mmol/L BUN 10 (7-17) mg/dL Creatinine 0.79 (0.52-1.04) mg/dL Est GFR (CKD-EPI)AfAm >90 (>60 ml/min/1.73 sqM) Est GFR (CKD-EPI)NonAf >90 (>60 ml/min/1.73 sqM) Glucose 114 H (74-99) mg/dL Calcium 9.9 (8.4-10.2) mg/dL Total Bilirubin 0.3 (0.2-1.3) mg/dL AST 104 H (14-36) U/L ALT 115 H (9-52) U/L Alkaline Phosphatase 84 (38-126) U/L Total Protein 7.8 (6.3-8.2) g/dL Albumin 4.0 (3.5-5.0) g/dL Amylase 38 (30-110) U/L Lipase 77 (23-300) U/L Urine Color Yellow Urine Appearance Cloudy H (Clear) Urine pH 5.0 (5.0-8.0) Ur Specific [place] 1.020 (1.001-1.035) Urine Protein Negative (Negative) Urine Glucose (UA) Negative (Negative) Urine Ketones Negative (Negative) Urine Blood Negative (Negative) Urine Nitrite Negative (Negative) Urine Bilirubin Negative (Negative) Urine Urobilinogen <2.0 (<2.0) mg/dL Ur Leukocyte Esterase Trace H (Negative) Urine RBC 1 (0-5) /hpf Urine WBC 2 (0-5) /hpf Ur Squamous Epith Cells 10 H (0-4) /hpf Urine Bacteria Rare H (None) /hpf Urine Mucus Occasional H (None) /hpf Urine HCG, Qual Not Detected (Not Detectd) 06/11/18 Range/Units 20:46 WBC 10.9 H (3.8-10.6) k/uL RBC 4.39 (3.80-5.40) m/uL Hgb 11.9 (11.4-16.0) gm/dL Hct 38.8 (34.0-46.0) % MCV 88.4 (80.0-100.0) fL MCH 27.2 (25.0-35.0) pg MCHC 30.8 L (31.0-37.0) g/dL RDW 13.4 (11.5-15.5) % Plt Count 372 (150-450) k/uL Neutrophils % 60 % Lymphocytes % 30 % Monocytes % 3 % Eosinophils % 5 % Basophils % 0 % Neutrophils # 6.5 (1.3-7.7) k/uL Lymphocytes # 3.3 (1.0-4.8) k/uL Monocytes # 0.3 (0-1.0) k/uL Eosinophils # 0.6 (0-0.7) k/uL Basophils # 0.0 (0-0.2) k/uL Sodium (137-145) mmol/L Potassium (3.5-5.1) mmol/L Chloride (98-107) mmol/L Carbon Dioxide (22-30) mmol/L Anion Gap mmol/L BUN (7-17) mg/dL Creatinine (0.52-1.04) mg/dL Est GFR (CKD-EPI)AfAm (>60 ml/min/1.73 sqM) Est GFR (CKD-EPI)NonAf (>60 ml/min/1.73 sqM) Glucose (74-99) mg/dL Calcium (8.4-10.2) mg/dL Total Bilirubin (0.2-1.3) mg/dL AST (14-36) U/L ALT (9-52) U/L Alkaline Phosphatase (38-126) U/L Total Protein (6.3-8.2) g/dL Albumin (3.5-5.0) g/dL Amylase (30-110) U/L Lipase (23-300) U/L Urine Color Urine Appearance (Clear) Urine pH (5.0-8.0) Ur Specific [place] (1.001-1.035) Urine Protein (Negative) Urine Glucose (UA) (Negative) Urine Ketones (Negative) Urine Blood (Negative) Urine Nitrite (Negative) Urine Bilirubin (Negative) Urine Urobilinogen (<2.0) mg/dL Ur Leukocyte Esterase (Negative) Urine RBC (0-5) /hpf Urine WBC (0-5) /hpf Ur Squamous Epith Cells (0-4) /hpf Urine Bacteria (None) /hpf Urine Mucus (None) /hpf Urine HCG, Qual (Not Detectd) - EKG Data EKG Comments: EKG obtained at 2243, rate is 92, rhythm is sinus, normal axis, MI is prolonged at 212, first degree AV block, QRS is 74, QTC is 469. There are no acute ST elevations or depressions no evidence of acute ischemia or infarction. Disposition Clinical Impression: Chronic abdominal pain Disposition: HOME SELF-CARE Instructions: Abdominal Pain (ED) Prescriptions: Trimethobenzamide [Tigan] 300 mg PO TID #12 capsule Is patient prescribed a controlled substance at d/c from ED?: No Referrals: Marysol Rose DO [Primary Care Provider] - 1-2 days Horace Osman MD [STAFF PHYSICIAN] - 1-2 days
[2018-06-11] MEDS ORDERED: MORPHINE SULFATE ER 15 MG TABLET PO STA (22:25)
[2018-06-11] MEDS ORDERED: TRIMETHOBENZAMIDE 300 MG CAP PO STA (23:02)
[2018-06-12 00:39] VITALS: BP 138/92; PULSE 96; RESP 16
== END 2018-06-12 01:12 | disposition home or self-care (01) ==
LOC: EC 20:23
DX: G89.29 Other chronic pain (principal); R10.13 Epigastric pain; R10.11 Right upper quadrant pain; R11.2 Nausea with vomiting, unspecified; J45.909 Unspecified asthma, uncomplicated; E11.9 Type 2 diabetes mellitus without complications; M79.7 Fibromyalgia; K21.9 Gastro-esophageal reflux disease without esophagitis; E07.9 Disorder of thyroid, unspecified; K74.60 Unspecified cirrhosis of liver; K58.9 Irritable bowel syndrome, unspecified; F41.9 Anxiety disorder, unspecified; F32.9 Major depressive disorder, single episode, unspecified; F43.10 Post-traumatic stress disorder, unspecified; E66.01 Morbid (severe) obesity due to excess calories; Z68.41 Body mass index [BMI] 40.0-44.9, adult; Z90.49 Acquired absence of other specified parts of digestive tract; Z79.3 Long term (current) use of hormonal contraceptives; Z79.84 Long term (current) use of oral hypoglycemic drugs; Z79.899 Other long term (current) drug therapy; Z88.5 Allergy status to narcotic agent; Z91.018 Allergy to other foods; Z91.040 Latex allergy status; Z88.8 Allergy status to other drugs, medicaments and biological substances; Z88.0 Allergy status to penicillin; Z88.6 Allergy status to analgesic agent; Z91.013 Allergy to seafood
CPT/HCPCS: 36415; 80053; 81001; 81025; 82150; 83690; 85025; 93005; 96360; 99284

== ENCOUNTER 2018-06-16 23:46 | Emergency (ER) | payer OTHER ==
[2018-06-17] MEDS ORDERED: SODIUM CHLORIDE 0.9% 1,000 ML IV STA (00:12)
[2018-06-17] MEDS ORDERED: PROMETHAZINE INJ 25 MG in SODIUM CHLORIDE 0.9% 50 ML IVPB STA (00:13)
[2018-06-17] MEDS ORDERED: diphenhydrAMINE 50 MG/ML 1 ML VIAL IVP STA (00:13)
[2018-06-17] MEDS ORDERED: DICYCLOMINE 10 MG/ML 2 ML AMP IM STA (00:14)
--- NOTE | 2018-06-17 00:37 | ED ---
Nausea/Vomiting/Diarrhea HPI - General Chief complaint: Nausea/Vomiting/Diarrhea Stated complaint: vomiting Time Seen by Provider: 06/16/18 23:55 Source: patient, RN notes reviewed Mode of arrival: ambulatory Limitations: no limitations - History of Present Illness Initial comments: This is a 22-year-old female with history of chronic abdominal pain and liver disease, well-known to the emergency department, who presents with chief complaint of nausea and vomiting. Mother reports that patient has been nauseous and has been vomiting since 7 PM this evening. States that patient's last dose of Compazine was at 3 PM. Patient also reports mild right upper quadrant abdominal pain that is no worse than her baseline. Denies fevers or chills, chest pain shortness of breath, diarrhea. - Related Data Home Medications Medication Instructions Recorded Confirmed [place] Carbonate 900 mg PO HS 08/27/15 06/16/18 Omeprazole [PriLOSEC] 20 mg PO BID 08/27/15 06/16/18 Levothyroxine Sodium [Synthroid] 125 mcg PO QAM 01/06/17 06/16/18 Ergocalciferol [Vitamin D2 50,000 unit PO BELL 02/13/17 06/16/18 (DRISDOL)] Montelukast [Singulair] 10 mg PO HS 05/21/17 06/16/18 cloNIDine HCL [Catapres] 0.2 mg PO HS 05/21/17 06/16/18 Potassium Chloride [K-Tab ER] 10 meq PO DAILY 09/14/17 06/16/18 Famotidine [Pepcid] 20 mg PO BID 02/04/18 06/16/18 Loratadine [Claritin] 10 mg PO DAILY 02/04/18 06/16/18 Norgestimate-Ethinyl Estradiol 1 tab PO DAILY 02/04/18 06/16/18 [Sprintec 28 Day Tablet] Pioglitazone [Actos] 15 mg PO DAILY 03/20/18 06/16/18 DULoxetine HCL [Cymbalta] 20 mg PO BID 05/01/18 06/16/18 Prochlorperazine [Compazine] 5 mg PO Q8HR PRN 05/01/18 06/16/18 QUEtiapine [SEROquel] 25 mg PO HS 05/13/18 06/16/18 Previous Rx's Medication Instructions Recorded Dicyclomine [Bentyl] 20 mg PO QID #30 tablet 06/05/18 Trimethobenzamide [Tigan] 300 mg PO TID #12 capsule 06/12/18 Allergies Allergy/AdvReac Type Severity Reaction Status Date / Time fentanyl Allergy Rash/Hives Verified 06/16/18 23:55 grape Allergy Anaphylaxis Verified 06/16/18 23:55 latex Allergy Rash/Hives Verified 06/16/18 23:55 metoclopramide [From Reglan] Allergy Unknown Verified 06/16/18 23:55 ondansetron [From Zofran] Allergy Unknown Verified 06/16/18 23:55 Penicillins Allergy Anaphylaxis Verified 06/16/18 23:55 ibuprofen [From Motrin] AdvReac GI Bleed Verified 06/16/18 23:55 prazosin AdvReac Nausea & Verified 06/16/18 23:55 Vomiting Seafood Allergy Anaphylaxis Uncoded 06/16/18 23:55 Review of Systems ROS Statement: Those systems with pertinent positive or pertinent negative responses have been documented in the HPI. ROS Other: All systems not noted in ROS Statement are negative. Past Medical History Past Medical History: Asthma, Chest Pain / Angina, Diabetes Mellitus, Fibromyalgia, GERD/Reflux, Liver Disease, Thyroid Disorder Additional Past Medical History / Comment(s): Hepatitis, Cirrhosis of the liver. Esophagalitis. Migraines. IBS. PART OF STOMACH NON-FUNCTIONING. BLOOD IN STOOL, VOMITING DAILY., History of Any Multi-Drug Resistant Organisms: None Reported Past Surgical History: Appendectomy, Cholecystectomy, Tonsillectomy Additional Past Surgical History / Comment(s): NASAL Septum repair. COLONOSCOPY., Past Anesthesia/Blood Transfusion Reactions: Motion Sickness Past Psychological History: Anxiety, Depression, PTSD Smoking Status: Never smoker Past Alcohol Use History: None Reported Past Drug Use History: None Reported - Past Family History Mother Family Medical History: No Reported History Father Family Medical History: Liver Disease Additional Family Medical History / Comment(s): cirrhosis, esophagus disease General Exam - General Exam Comments Initial Comments: General: Awake and alert, well-developed; obese white female in mild distress, vomiting bile into a basin. Mother eating Cheetos at bedside. HEENT: Head atraumatic, normocephalic. Pupils are equal, round and reactive to light. Extraocular movements intact. Oropharynx moist without erythema or exudate. Neck: Supple. Normal ROM. Cardiovascular: Regular rate and rhythm. No murmurs, rubs or gallops. Chest symmetrical. Respiratory: Lungs clear to auscultation bilaterally. No wheezes, rales or rhonchi. Normal respiratory effort with no use of accessory muscles. Abdomen: Soft, non-distended. Mild tenderness on palpation of RUQ. No rigidity, rebound or guarding. Normal bowel sounds in all 4 quadrants. Musculoskeletal: Normal ROM, no tenderness bilateral upper and lower extremities. Skin: [place], warm and dry without rashes or lesions. Neurological: Alert and oriented x3. CN II-XII grossly intact. Speech is fluent and answers are appropriate. No focal neuro deficits. Psychiatric: Normal mood and affect. No overt signs of depression or anxiety noted. Limitations: no limitations Course Vital Signs 06/16/18 23:50 Temperature 98.2 F Pulse Rate 106 H Respiratory 20 Rate Blood Pressure 125/75 O2 Sat by Pulse 98 Oximetry - Reevaluation(s) Reevaluation #1: At this time, patient is resting comfortably in bed. She is no longer experiencing nausea or vomiting. States that her pain is controlled. 06/17/18 01:00 Medical Decision Making - Medical Decision Making This is a 22-year-old female who presents to the emergency department with chief complaint of nausea and vomiting. Patient is well-known to the emergency department. She has chronic abdominal pain and liver disease. Patient was given promethazine, Bentyl and Benadryl as well as IV normal saline while in the emergency department. Her symptoms have improved. Pain is controlled. Patient is no longer vomiting. Vital signs are stable and she is in no acute distress. CBC and CMP demonstrated no significant abnormalities. Patient will be discharged home at this time. She is in agreement and voices understanding. All questions were answered. - Lab Data Result diagrams: 06/17/18 00:55 06/17/18 00:55 Lab Results 06/17/18 06/17/18 06/17/18 Range/Units 00:55 00:55 00:55 WBC 11.6 H (3.8-10.6) k/uL RBC 4.64 (3.80-5.40) m/uL Hgb 12.8 (11.4-16.0) gm/dL Hct 40.4 (34.0-46.0) % MCV 87.0 (80.0-100.0) fL MCH 27.5 (25.0-35.0) pg MCHC 31.6 (31.0-37.0) g/dL RDW 13.3 (11.5-15.5) % Plt Count 320 (150-450) k/uL Neutrophils % 76 % Lymphocytes % 17 % Monocytes % 4 % Eosinophils % 2 % Basophils % 0 % Neutrophils # 8.8 H (1.3-7.7) k/uL Lymphocytes # 2.0 (1.0-4.8) k/uL Monocytes # 0.4 (0-1.0) k/uL Eosinophils # 0.2 (0-0.7) k/uL Basophils # 0.0 (0-0.2) k/uL PT 10.0 (9.0-12.0) sec INR 1.0 (<1.2) APTT 23.8 (22.0-30.0) sec Sodium 139 (137-145) mmol/L Potassium 4.1 (3.5-5.1) mmol/L Chloride 104 (98-107) mmol/L Carbon Dioxide 23 (22-30) mmol/L Anion Gap 12 mmol/L BUN 8 (7-17) mg/dL Creatinine 0.74 (0.52-1.04) mg/dL Est GFR (CKD-EPI)AfAm >90 (>60 ml/min/1.73 sqM) Est GFR (CKD-EPI)NonAf >90 (>60 ml/min/1.73 sqM) Glucose 103 H (74-99) mg/dL Calcium 9.9 (8.4-10.2) mg/dL Total Bilirubin 0.3 (0.2-1.3) mg/dL AST 84 H (14-36) U/L ALT 77 H (9-52) U/L Alkaline Phosphatase 91 (38-126) U/L Total Protein 7.9 (6.3-8.2) g/dL Albumin 4.0 (3.5-5.0) g/dL Amylase 56 (30-110) U/L Lipase 55 (23-300) U/L Disposition Clinical Impression: Nausea and vomiting Disposition: HOME SELF-CARE Condition: Good Instructions: Acute Nausea and Vomiting (ED) Additional Instructions: Please follow up with primary care provider within 1-2 days. Return to emergency department if symptoms should worsen or any concerns arise. Is patient prescribed a controlled substance at d/c from ED?: No Referrals: Marysol Rose DO [Primary Care Provider] - 1-2 days Time of Disposition: 01:33
[2018-06-17 01:06] LABS: Basophils % (A) 0 %; Eosinophils # (A) 0.2 k/uL (0-0.7); Eosinophils % (A) 2 %; HCT 40.4 % (34.0-46.0); HGB 12.8 gm/dL (11.4-16.0); Lymphocytes % (A) 17 %; MCH 27.5 pg (25.0-35.0); MCHC 31.6 g/dL (31.0-37.0); Mean Platelet Volume 7.2; Monocytes # (A) 0.4 k/uL (0-1.0); Monocytes % (A) 4 %; Neutrophils # (A) 8.8 k/uL (1.3-7.7); Neutrophils % (A) 76 %; Platelet Count 320 k/uL (150-450); RBC 4.64 m/uL (3.80-5.40); RDW 13.3 % (11.5-15.5); WBC 11.6 k/uL (3.8-10.6)
[2018-06-17 01:17] LABS: ALT 77 U/L (9-52); AST 84 U/L (14-36); Alkaline Phosphatase 91 U/L (38-126); Amylase 56 U/L (30-110); Anion Gap 12 mmol/L; Blood Urea Nitrogen 8 mg/dL (7-17); Calcium 9.9 mg/dL (8.4-10.2); Carbon Dioxide 23 mmol/L (22-30); Chloride 104 mmol/L (98-107); Glucose 103 mg/dL (74-99); Lipase 55 U/L (23-300); Potassium 4.1 mmol/L (3.5-5.1); Sodium 139 mmol/L (137-145); Total Bilirubin 0.3 mg/dL (0.2-1.3); Total Protein 7.9 g/dL (6.3-8.2)
[2018-06-17 01:25] LABS: Partial Thromboplastin Time 23.8 sec (22.0-30.0)
[2018-06-17 02:26] VITALS: BP 130/96; PULSE 95; RESP 18; TEMP 97
== END 2018-06-17 02:24 | disposition home or self-care (01) ==
LOC: EC 23:46
DX: R11.2 Nausea with vomiting, unspecified (principal); R10.11 Right upper quadrant pain; J45.909 Unspecified asthma, uncomplicated; I20.9 Angina pectoris, unspecified; E11.9 Type 2 diabetes mellitus without complications; M79.7 Fibromyalgia; K21.9 Gastro-esophageal reflux disease without esophagitis; E07.9 Disorder of thyroid, unspecified; F41.9 Anxiety disorder, unspecified; F32.9 Major depressive disorder, single episode, unspecified; F43.10 Post-traumatic stress disorder, unspecified; Z90.49 Acquired absence of other specified parts of digestive tract; Z98.890 Other specified postprocedural states; Z87.19 Personal history of other diseases of the digestive system; Z79.84 Long term (current) use of oral hypoglycemic drugs; Z79.899 Other long term (current) drug therapy; Z88.0 Allergy status to penicillin; Z88.5 Allergy status to narcotic agent; Z88.6 Allergy status to analgesic agent; Z88.8 Allergy status to other drugs, medicaments and biological substances; Z91.013 Allergy to seafood; Z91.018 Allergy to other foods; Z91.040 Latex allergy status
CPT/HCPCS: 36415; 80053; 82150; 83690; 85025; 85610; 85730; 99284; 96374; 96375; 96361; 96372; J1200; J0500; J2550

== ENCOUNTER 2018-06-22 01:21 | Emergency (ER) | payer OTHER ==
--- NOTE | 2018-06-22 02:32 | ED ---
General Adult HPI - General Chief complaint: GI Bleed Stated complaint: abd pain,vomiting Source: patient, family Mode of arrival: wheelchair Limitations: no limitations - History of Present Illness Initial comments: Dictation was produced using [employer] dictation software. please excuse any grammatical, word or spelling errors. 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 History of Present Illness: Old female was getting ready for bed early tonight when she had an episodes of bright red hematemesis. Patient states she's had similar symptoms like this in the past. She's been evaluated by multiple GI specialists at [facility] and [facility]. Patient was seen had an MRI. She's had episodes like this over the last 2 days however this has been an ongoing issue over several months. Patient is frequent flyer to our emergency department. She has been here approximately 50 times over the last 2 years. Patient was evaluated by myself last month. Patient is coming by mother who reports that patient appears pale. She was concerned about her agree of hematemesis. Patient hasn't been evaluated by gastroenterology per she had negative EGD and colonoscopies. According to family the but is able to identify where the source of bleeding is from. The ROS documented in this emergency department record has been reviewed and confirmed by me. Those systems with pertinent positive or negative responses have been documented in the HPI. All other systems are other negative and/or noncontributory. - Related Data Home Medications Medication Instructions Recorded Confirmed [place] Carbonate 900 mg PO HS 08/27/15 06/16/18 Omeprazole [PriLOSEC] 20 mg PO BID 08/27/15 06/16/18 Levothyroxine Sodium [Synthroid] 125 mcg PO QAM 01/06/17 06/16/18 Ergocalciferol [Vitamin D2 50,000 unit PO BELL 02/13/17 06/16/18 (DRISDOL)] Montelukast [Singulair] 10 mg PO HS 05/21/17 06/16/18 cloNIDine HCL [Catapres] 0.2 mg PO HS 05/21/17 06/16/18 Potassium Chloride [K-Tab ER] 10 meq PO DAILY 09/14/17 06/16/18 Famotidine [Pepcid] 20 mg PO BID 02/04/18 06/16/18 Loratadine [Claritin] 10 mg PO DAILY 02/04/18 06/16/18 Norgestimate-Ethinyl Estradiol 1 tab PO DAILY 02/04/18 06/16/18 [Sprintec 28 Day Tablet] Pioglitazone [Actos] 15 mg PO DAILY 03/20/18 06/16/18 DULoxetine HCL [Cymbalta] 20 mg PO BID 05/01/18 06/16/18 Prochlorperazine [Compazine] 5 mg PO Q8HR PRN 05/01/18 06/16/18 QUEtiapine [SEROquel] 25 mg PO HS 05/13/18 06/16/18 Previous Rx's Medication Instructions Recorded Dicyclomine [Bentyl] 20 mg PO QID #30 tablet 06/05/18 Trimethobenzamide [Tigan] 300 mg PO TID #12 capsule 06/12/18 Allergies Allergy/AdvReac Type Severity Reaction Status Date / Time fentanyl Allergy Rash/Hives Verified 06/22/18 01:38 grape Allergy Anaphylaxis Verified 06/22/18 01:38 latex Allergy Rash/Hives Verified 06/22/18 01:38 metoclopramide [From Reglan] Allergy Unknown Verified 06/22/18 01:38 ondansetron [From Zofran] Allergy Unknown Verified 06/22/18 01:38 Penicillins Allergy Anaphylaxis Verified 06/22/18 01:38 ibuprofen [From Motrin] AdvReac GI Bleed Verified 06/22/18 01:38 prazosin AdvReac Nausea & Verified 06/22/18 01:38 Vomiting Seafood Allergy Anaphylaxis Uncoded 06/22/18 01:38 Review of Systems ROS Statement: Those systems with pertinent positive or pertinent negative responses have been documented in the HPI. ROS Other: All systems not noted in ROS Statement are negative. Past Medical History Past Medical History: Asthma, Chest Pain / Angina, Diabetes Mellitus, Fibromyalgia, GERD/Reflux, Liver Disease, Thyroid Disorder Additional Past Medical History / Comment(s): Hepatitis, Cirrhosis of the liver. Esophagalitis. Migraines. IBS. PART OF STOMACH NON-FUNCTIONING. BLOOD IN STOOL, VOMITING DAILY., History of Any Multi-Drug Resistant Organisms: None Reported Past Surgical History: Appendectomy, Cholecystectomy, Tonsillectomy Additional Past Surgical History / Comment(s): NASAL Septum repair. COLONOSCOPY., Past Anesthesia/Blood Transfusion Reactions: Motion Sickness Past Psychological History: Anxiety, Depression, PTSD Smoking Status: Never smoker Past Alcohol Use History: None Reported Past Drug Use History: None Reported - Past Family History Mother Family Medical History: No Reported History Father Family Medical History: Liver Disease Additional Family Medical History / Comment(s): cirrhosis, esophagus disease General Exam - General Exam Comments Initial Comments: PHYSICAL EXAM: General Impression: Alert and oriented x3, not in acute distress, pale skin HEENT: Normocephalic atraumatic, extra-ocular movements intact, pupils equal and reactive to light bilaterally, mucous membranes moist. Cardiovascular: Heart regular rate and rhythm, S1&S2 audible, no murmurs, rubs or gallops Chest: Lungs clear to auscultation bilaterally, no rhonchi, no wheeze, no rales Abdomen: Bowel sounds present, abdomen soft, non-tender, non-distended, no organomegaly Musculoskeletal: Pulses present and equal in all extremities, no peripheral edema Motor: Power 5/5 bilaterally, no focal deficits noted Neurological: CN II-XII grossly intact, no focal motor or sensory deficits noted Skin: Intact with no visualized rashes Psych: Normal affect and mood Limitations: no limitations Course Vital Signs 06/22/18 06/22/18 01:35 03:43 Temperature 98.7 F 97.9 F Pulse Rate 111 H 91 Respiratory 16 14 Rate Blood Pressure 104/77 118/58 O2 Sat by Pulse 97 99 Oximetry Medical Decision Making - Medical Decision Making ED course: 22-year-old female with multiple comorbidities presents with hematemesis and bright red blood per rectum. Vital signs upon arrival shows heart rate of 111, rest of vital signs within normal limits. Laboratory evaluation obtained. CBC is unremarkable. Hemoglobin is stable. No thrombocytopenia. Coag panel is unremarkable. Basic metabolic panel is negative. Urine hCG is negative. There is positive stool occult blood. Patient's Coumadin and stable. She has gently however while in the emergency department she was observed for several hours without any recurrent episodes. In and mother feel comfortable being discharged with outpatient follow-up with their GI doctor. She is on medications for anti-emetics and GI prophylaxis. Patient told to return should she experience recurrent symptoms that are persistent. Mother and patient are understandable and agreeable to plan. - Lab Data Result diagrams: 06/22/18 02:57 06/22/18 02:57 Lab Results 06/22/18 06/22/18 06/22/18 Range/Units 02:57 02:57 02:57 WBC 9.1 (3.8-10.6) k/uL RBC 4.12 (3.80-5.40) m/uL Hgb 11.6 (11.4-16.0) gm/dL Hct 35.4 (34.0-46.0) % MCV 85.9 (80.0-100.0) fL MCH 28.2 (25.0-35.0) pg MCHC 32.8 (31.0-37.0) g/dL RDW 13.3 (11.5-15.5) % Plt Count 288 (150-450) k/uL Neutrophils % 58 % Lymphocytes % 29 % Monocytes % 5 % Eosinophils % 6 % Basophils % 0 % Neutrophils # 5.3 (1.3-7.7) k/uL Lymphocytes # 2.6 (1.0-4.8) k/uL Monocytes # 0.5 (0-1.0) k/uL Eosinophils # 0.6 (0-0.7) k/uL Basophils # 0.0 (0-0.2) k/uL PT 10.3 (9.0-12.0) sec INR 1.1 (<1.2) Sodium 139 (137-145) mmol/L Potassium 4.0 (3.5-5.1) mmol/L Chloride 106 (98-107) mmol/L Carbon Dioxide 25 (22-30) mmol/L Anion Gap 8 mmol/L BUN 7 (7-17) mg/dL Creatinine 0.67 (0.52-1.04) mg/dL Est GFR (CKD-EPI)AfAm >90 (>60 ml/min/1.73 sqM) Est GFR (CKD-EPI)NonAf >90 (>60 ml/min/1.73 sqM) Glucose 97 (74-99) mg/dL Calcium 9.5 (8.4-10.2) mg/dL Urine HCG, Qual (Not Detectd) Stool Occult Blood (Negative) 06/22/18 06/22/18 Range/Units 03:34 04:15 WBC (3.8-10.6) k/uL RBC (3.80-5.40) m/uL Hgb (11.4-16.0) gm/dL Hct (34.0-46.0) % MCV (80.0-100.0) fL MCH (25.0-35.0) pg MCHC (31.0-37.0) g/dL RDW (11.5-15.5) % Plt Count (150-450) k/uL Neutrophils % % Lymphocytes % % Monocytes % % Eosinophils % % Basophils % % Neutrophils # (1.3-7.7) k/uL Lymphocytes # (1.0-4.8) k/uL Monocytes # (0-1.0) k/uL Eosinophils # (0-0.7) k/uL Basophils # (0-0.2) k/uL PT (9.0-12.0) sec INR (<1.2) Sodium (137-145) mmol/L Potassium (3.5-5.1) mmol/L Chloride (98-107) mmol/L Carbon Dioxide (22-30) mmol/L Anion Gap mmol/L BUN (7-17) mg/dL Creatinine (0.52-1.04) mg/dL Est GFR (CKD-EPI)AfAm (>60 ml/min/1.73 sqM) Est GFR (CKD-EPI)NonAf (>60 ml/min/1.73 sqM) Glucose (74-99) mg/dL Calcium (8.4-10.2) mg/dL Urine HCG, Qual Not Detected (Not Detectd) Stool Occult Blood Positive H (Negative) Disposition Clinical Impression: Hematochezia Disposition: HOME SELF-CARE Condition: Good Instructions: Gastrointestinal Bleeding (ED) Is patient prescribed a controlled substance at d/c from ED?: No Referrals: Marysol Rose DO [Primary Care Provider] - 1-2 days Time of Disposition: 04:47
[2018-06-22 03:08] LABS: Basophils % (A) 0 %; Eosinophils # (A) 0.6 k/uL (0-0.7); Eosinophils % (A) 6 %; HCT 35.4 % (34.0-46.0); HGB 11.6 gm/dL (11.4-16.0); Lymphocytes # (A) 2.6 k/uL (1.0-4.8); Lymphocytes % (A) 29 %; MCH 28.2 pg (25.0-35.0); MCHC 32.8 g/dL (31.0-37.0); MCV 85.9 fL (80.0-100.0); Mean Platelet Volume 6.9; Monocytes # (A) 0.5 k/uL (0-1.0); Monocytes % (A) 5 %; Neutrophils # (A) 5.3 k/uL (1.3-7.7); Neutrophils % (A) 58 %; Platelet Count 288 k/uL (150-450); RBC 4.12 m/uL (3.80-5.40); RDW 13.3 % (11.5-15.5); WBC 9.1 k/uL (3.8-10.6)
[2018-06-22 03:12] LABS: INR 1.1 (<1.2); Prothrombin Time 10.3 sec (9.0-12.0)
[2018-06-22 03:25] LABS: Anion Gap 8 mmol/L; Blood Urea Nitrogen 7 mg/dL (7-17); Calcium 9.5 mg/dL (8.4-10.2); Carbon Dioxide 25 mmol/L (22-30); Chloride 106 mmol/L (98-107); Glucose 97 mg/dL (74-99); Sodium 139 mmol/L (137-145)
[2018-06-22 04:50] VITALS: BP 98/60; PULSE 95; RESP 18
[2018-06-22 05:04] VITALS: TEMP 98.2
== END 2018-06-22 05:03 | disposition home or self-care (01) ==
LOC: EC 01:21
DX: K92.1 Melena (principal); K92.0 Hematemesis; R10.9 Unspecified abdominal pain; J45.909 Unspecified asthma, uncomplicated; E11.9 Type 2 diabetes mellitus without complications; M79.7 Fibromyalgia; K21.9 Gastro-esophageal reflux disease without esophagitis; E07.9 Disorder of thyroid, unspecified; K58.9 Irritable bowel syndrome, unspecified; K74.60 Unspecified cirrhosis of liver; F41.9 Anxiety disorder, unspecified; F32.9 Major depressive disorder, single episode, unspecified; F43.10 Post-traumatic stress disorder, unspecified; Z90.49 Acquired absence of other specified parts of digestive tract; Z79.3 Long term (current) use of hormonal contraceptives; Z79.84 Long term (current) use of oral hypoglycemic drugs; Z79.899 Other long term (current) drug therapy; Z88.5 Allergy status to narcotic agent; Z91.018 Allergy to other foods; Z91.040 Latex allergy status; Z88.8 Allergy status to other drugs, medicaments and biological substances; Z88.0 Allergy status to penicillin; Z88.6 Allergy status to analgesic agent; Z91.013 Allergy to seafood
CPT/HCPCS: 36415; 80048; 81025; 82272; 85025; 85610; 86850; 86900; 86901; 99284

== ENCOUNTER 2018-06-27 00:21 | Emergency (ER) | payer OTHER ==
[2018-06-27 00:30] VITALS: RESP 18
[2018-06-27] MEDS ORDERED: MORPHINE SULFATE 4 MG/ML SYRINGE IV STA (01:06)
[2018-06-27] MEDS ORDERED: PANTOPRAZOLE 40 MG/10 ML VIAL IVP STA (01:06)
[2018-06-27] MEDS ORDERED: SODIUM CHLORIDE 0.9% 1,000 ML IV STA (01:06)
[2018-06-27] MEDS ORDERED: PROMETHAZINE INJ 25 MG in SODIUM CHLORIDE 0.9% 50 ML IVPB STA (01:08)
[2018-06-27] MEDS ORDERED: diphenhydrAMINE 50 MG/ML 1 ML VIAL IVP STA (01:09)
[2018-06-27 01:18] LABS: Basophils % (A) 0 %; Eosinophils # (A) 0.7 k/uL (0-0.7); Eosinophils % (A) 6 %; HCT 39.4 % (34.0-46.0); HGB 12.6 gm/dL (11.4-16.0); Lymphocytes # (A) 3.2 k/uL (1.0-4.8); Lymphocytes % (A) 28 %; MCH 27.3 pg (25.0-35.0); MCHC 31.9 g/dL (31.0-37.0); MCV 85.5 fL (80.0-100.0); Mean Platelet Volume 6.8; Monocytes # (A) 0.5 k/uL (0-1.0); Monocytes % (A) 4 %; Neutrophils # (A) 6.9 k/uL (1.3-7.7); Neutrophils % (A) 60 %; Platelet Count 387 k/uL (150-450); RBC 4.61 m/uL (3.80-5.40); RDW 13.3 % (11.5-15.5); WBC 11.4 k/uL (3.8-10.6)
[2018-06-27 01:27] LABS: ALT 158 U/L (9-52); AST 127 U/L (14-36); Alkaline Phosphatase 97 U/L (38-126); Amylase 49 U/L (30-110); Anion Gap 10 mmol/L; Blood Urea Nitrogen 7 mg/dL (7-17); Calcium 9.8 mg/dL (8.4-10.2); Carbon Dioxide 24 mmol/L (22-30); Chloride 103 mmol/L (98-107); Glucose 92 mg/dL (74-99); Lipase 73 U/L (23-300); Potassium 4.2 mmol/L (3.5-5.1); Sodium 137 mmol/L (137-145); Total Bilirubin 0.4 mg/dL (0.2-1.3)
--- NOTE | 2018-06-27 02:05 | XR ---
EXAMINATION TYPE: XR KUB DATE OF EXAM: 06/27/2018 COMPARISON: 04/06/2018 HISTORY: Hepatitis abdominal pain TECHNIQUE: 2 views FINDINGS: 2 upright views were obtained and show no sign of intestinal obstruction or pneumoperitoneu m. Fecal pattern is normal. There are clips from cholecystectomy. Liver appears enlarged. Lung bases are clear. There are no pathologic calcifications over the kidneys. IMPRESSION: There is probably hepatomegaly unchanged. Nonacute abdomen.
[2018-06-27 02:50] LABS: Appearance,Urine Clear (Clear); Bilirubin,Urine Negative (Negative); Blood,Urine Negative (Negative); Color,Urine Yellow; Glucose,Urine (UA) Negative (Negative); Ketones,Urine Negative (Negative); Leukocyte Esterase,Urine Negative (Negative); Nitrite,Urine Negative (Negative); PH, Urine 6.5 (5.0-8.0); Protein,Urine Negative (Negative); Specific Gravity,Urine 1.008 (1.001-1.035); Urobilinogen,Urine <2.0 mg/dL (<2.0)
--- NOTE | 2018-06-27 02:57 | ED ---
GI Bleed HPI - General Chief complaint: GI Bleed Stated complaint: Abdominal Pain Time Seen by Provider: 06/27/18 00:46 Source: patient Mode of arrival: ambulatory Limitations: no limitations - History of Present Illness Initial comments: 22-year-old female patient presents to the emergency department today for evaluation of abdominal pain and vomiting. The patient has frequently presented to emergency department for similar symptoms. 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 Patient states that this episode of abdominal pain started earlier today. States it is in her right upper quadrant. States it does radiate to her side into her back. Patient has had multiple episodes of vomiting. States there is presence of red blood clots. She denies any dizziness or weakness. States she did take Tigan at home for the vomiting but it did not help. She denies any constipation or diarrhea. Denies any fevers or chills. States that she does have a upper and lower GI endoscopy scheduled for Saturday with Dr. James. Patient denies any recent rash, shortness breath , chest pain, numbness, tingling, dizziness, weakness, hematuria, dysuria, urinary urgency, urinary frequency, headache, visual changes, or any other complaints. - Related Data Home Medications Medication Instructions Recorded Confirmed [place] Carbonate 900 mg PO HS 08/27/15 06/16/18 Omeprazole [PriLOSEC] 20 mg PO BID 08/27/15 06/16/18 Levothyroxine Sodium [Synthroid] 125 mcg PO QAM 01/06/17 06/16/18 Ergocalciferol [Vitamin D2 50,000 unit PO BELL 02/13/17 06/16/18 (DRISDOL)] Montelukast [Singulair] 10 mg PO HS 05/21/17 06/16/18 cloNIDine HCL [Catapres] 0.2 mg PO HS 05/21/17 06/16/18 Potassium Chloride [K-Tab ER] 10 meq PO DAILY 09/14/17 06/16/18 Famotidine [Pepcid] 20 mg PO BID 02/04/18 06/16/18 Loratadine [Claritin] 10 mg PO DAILY 02/04/18 06/16/18 Norgestimate-Ethinyl Estradiol 1 tab PO DAILY 02/04/18 06/16/18 [Sprintec 28 Day Tablet] Pioglitazone [Actos] 15 mg PO DAILY 03/20/18 06/16/18 DULoxetine HCL [Cymbalta] 20 mg PO BID 05/01/18 06/16/18 Prochlorperazine [Compazine] 5 mg PO Q8HR PRN 05/01/18 06/16/18 QUEtiapine [SEROquel] 25 mg PO HS 05/13/18 06/16/18 Previous Rx's Medication Instructions Recorded Dicyclomine [Bentyl] 20 mg PO QID #30 tablet 06/05/18 Trimethobenzamide [Tigan] 300 mg PO TID #12 capsule 06/12/18 Allergies Allergy/AdvReac Type Severity Reaction Status Date / Time fentanyl Allergy Rash/Hives Verified 06/27/18 00:30 grape Allergy Anaphylaxis Verified 06/27/18 00:30 latex Allergy Rash/Hives Verified 06/27/18 00:30 metoclopramide [From Reglan] Allergy Unknown Verified 06/27/18 00:30 ondansetron [From Zofran] Allergy Unknown Verified 06/27/18 00:30 Penicillins Allergy Anaphylaxis Verified 06/27/18 00:30 ibuprofen [From Motrin] AdvReac GI Bleed Verified 06/27/18 00:30 prazosin AdvReac Nausea & Verified 06/27/18 00:30 Vomiting Seafood Allergy Anaphylaxis Uncoded 06/27/18 00:30 Review of Systems ROS Statement: Those systems with pertinent positive or pertinent negative responses have been documented in the HPI. ROS Other: All systems not noted in ROS Statement are negative. Past Medical History Past Medical History: Asthma, Chest Pain / Angina, Diabetes Mellitus, Fibromyalgia, GERD/Reflux, Liver Disease, Thyroid Disorder Additional Past Medical History / Comment(s): Hepatitis, Cirrhosis of the liver. Esophagalitis. Migraines. IBS. PART OF STOMACH NON-FUNCTIONING. BLOOD IN STOOL, VOMITING DAILY., History of Any Multi-Drug Resistant Organisms: None Reported Past Surgical History: Appendectomy, Cholecystectomy, Tonsillectomy Additional Past Surgical History / Comment(s): NASAL Septum repair. COLONOSCOPY., Past Anesthesia/Blood Transfusion Reactions: Motion Sickness Past Psychological History: Anxiety, Depression, PTSD Smoking Status: Never smoker Past Alcohol Use History: None Reported Past Drug Use History: None Reported - Past Family History Mother Family Medical History: No Reported History Father Family Medical History: Liver Disease Additional Family Medical History / Comment(s): cirrhosis, esophagus disease General Exam Limitations: no limitations General appearance: alert, in no apparent distress, other (This is a well- developed, well-nourished adult female patient in no acute distress. Vital signs upon presentation are temperature 98.2F, pulse 86, respirations 18, blood pressure 118/86, pulse ox 97% on room air.) Eye exam: Present: normal appearance, PERRL, EOMI. Absent: scleral icterus, conjunctival injection, periorbital swelling ENT exam: Present: normal exam, normal oropharynx, mucous membranes moist Respiratory exam: Present: normal lung sounds bilaterally. Absent: respiratory distress, wheezes, rales, rhonchi, stridor Cardiovascular Exam: Present: regular rate, normal rhythm, normal heart sounds. Absent: systolic murmur, diastolic murmur, rubs, gallop, clicks GI/Abdominal exam: Present: soft, tenderness (Right upper quadrant), normal bowel sounds. Absent: distended, guarding, rebound, rigid Neurological exam: Present: alert, oriented X3, CN II-XII intact Psychiatric exam: Present: normal affect, normal mood Skin exam: Present: warm, dry, intact, pallor. Absent: normal color, rash Course Vital Signs 06/27/18 06/27/18 06/27/18 00:25 02:10 03:30 Temperature 98.2 F 98.0 F Pulse Rate 86 98 81 Respiratory 18 18 18 Rate Blood Pressure 111/86 123/60 141/68 O2 Sat by Pulse 97 98 98 Oximetry Medical Decision Making - Medical Decision Making 22-year-old female patient presents to the emergency department today for evaluation of upper abdominal pain and vomiting. Patient denies any new symptoms today just states that she couldn't handle it at home any longer. Physical examination did reveal right upper quadrant tenderness. Labs reviewed and are unremarkable. Patient did not have any episodes of vomiting in the emergency department. She does have an upper and lower GI endoscopy scheduled for Saturday with Dr. James. She'll be discharged home at this time to follow- up with her primary care physician, she is urged to keep her appointment on Saturday. Return parameters discussed in detail. She verbalizes understanding and agrees with this plan. - Lab Data Result diagrams: 06/27/18 01:05 06/27/18 01:05 Lab Results 06/27/18 06/27/18 06/27/18 Range/Units 01:05 01:05 01:29 WBC 11.4 H (3.8-10.6) k/uL RBC 4.61 (3.80-5.40) m/uL Hgb 12.6 (11.4-16.0) gm/dL Hct 39.4 (34.0-46.0) % MCV 85.5 (80.0-100.0) fL MCH 27.3 (25.0-35.0) pg MCHC 31.9 (31.0-37.0) g/dL RDW 13.3 (11.5-15.5) % Plt Count 387 (150-450) k/uL Neutrophils % 60 % Lymphocytes % 28 % Monocytes % 4 % Eosinophils % 6 % Basophils % 0 % Neutrophils # 6.9 (1.3-7.7) k/uL Lymphocytes # 3.2 (1.0-4.8) k/uL Monocytes # 0.5 (0-1.0) k/uL Eosinophils # 0.7 (0-0.7) k/uL Basophils # 0.0 (0-0.2) k/uL Sodium 137 (137-145) mmol/L Potassium 4.2 (3.5-5.1) mmol/L Chloride 103 (98-107) mmol/L Carbon Dioxide 24 (22-30) mmol/L Anion Gap 10 mmol/L BUN 7 (7-17) mg/dL Creatinine 0.66 (0.52-1.04) mg/dL Est GFR (CKD-EPI)AfAm >90 (>60 ml/min/1.73 sqM) Est GFR (CKD-EPI)NonAf >90 (>60 ml/min/1.73 sqM) Glucose 92 (74-99) mg/dL Calcium 9.8 (8.4-10.2) mg/dL Total Bilirubin 0.4 (0.2-1.3) mg/dL AST 127 H (14-36) U/L ALT 158 H (9-52) U/L Alkaline Phosphatase 97 (38-126) U/L Total Protein 8.0 (6.3-8.2) g/dL Albumin 4.0 (3.5-5.0) g/dL Amylase 49 (30-110) U/L Lipase 73 (23-300) U/L Urine Color Urine Appearance (Clear) Urine pH (5.0-8.0) Ur Specific [place] (1.001-1.035) Urine Protein (Negative) Urine Glucose (UA) (Negative) Urine Ketones (Negative) Urine Blood (Negative) Urine Nitrite (Negative) Urine Bilirubin (Negative) Urine Urobilinogen (<2.0) mg/dL Ur Leukocyte Esterase (Negative) Urine HCG, Qual Not Detected (Not Detectd) 06/27/18 Range/Units 02:35 WBC (3.8-10.6) k/uL RBC (3.80-5.40) m/uL Hgb (11.4-16.0) gm/dL Hct (34.0-46.0) % MCV (80.0-100.0) fL MCH (25.0-35.0) pg MCHC (31.0-37.0) g/dL RDW (11.5-15.5) % Plt Count (150-450) k/uL Neutrophils % % Lymphocytes % % Monocytes % % Eosinophils % % Basophils % % Neutrophils # (1.3-7.7) k/uL Lymphocytes # (1.0-4.8) k/uL Monocytes # (0-1.0) k/uL Eosinophils # (0-0.7) k/uL Basophils # (0-0.2) k/uL Sodium (137-145) mmol/L Potassium (3.5-5.1) mmol/L Chloride (98-107) mmol/L Carbon Dioxide (22-30) mmol/L Anion Gap mmol/L BUN (7-17) mg/dL Creatinine (0.52-1.04) mg/dL Est GFR (CKD-EPI)AfAm (>60 ml/min/1.73 sqM) Est GFR (CKD-EPI)NonAf (>60 ml/min/1.73 sqM) Glucose (74-99) mg/dL Calcium (8.4-10.2) mg/dL Total Bilirubin (0.2-1.3) mg/dL AST (14-36) U/L ALT (9-52) U/L Alkaline Phosphatase (38-126) U/L Total Protein (6.3-8.2) g/dL Albumin (3.5-5.0) g/dL Amylase (30-110) U/L Lipase (23-300) U/L Urine Color Yellow Urine Appearance Clear (Clear) Urine pH 6.5 (5.0-8.0) Ur Specific [place] 1.008 (1.001-1.035) Urine Protein Negative (Negative) Urine Glucose (UA) Negative (Negative) Urine Ketones Negative (Negative) Urine Blood Negative (Negative) Urine Nitrite Negative (Negative) Urine Bilirubin Negative (Negative) Urine Urobilinogen <2.0 (<2.0) mg/dL Ur Leukocyte Esterase Negative (Negative) Urine HCG, Qual (Not Detectd) - Radiology Data Radiology results: report reviewed, image reviewed Two-view x-ray of the abdomen was obtained. Report was reviewed in its entirety. Impression by Dr. Zaldivar shows probably hepatomegaly unchanged. Nonacute abdomen. Disposition Clinical Impression: Chronic vomiting, Chronic abdominal pain Disposition: HOME SELF-CARE Condition: Good Instructions: Acute Nausea and Vomiting (ED), Abdominal Pain (ED) Additional Instructions: Start with clear liquid diet and advance as tolerated. Keep appointment with Dr. James as you have planned. Return here immediately for any new, worsening, or concerning symptoms. Is patient prescribed a controlled substance at d/c from ED?: No Referrals: Marysol Rose DO [Primary Care Provider] - 1-2 days Time of Disposition: 02:57
[2018-06-27] MEDS ORDERED: MORPHINE SULFATE 2 MG/ML SYRINGE IVP STA (03:08)
[2018-06-27 03:31] VITALS: BP 141/68; TEMP 98
[2018-06-27 03:34] VITALS: PULSE 81
== END 2018-06-27 03:34 | disposition home or self-care (01) ==
LOC: EC 00:21
DX: R11.10 Vomiting, unspecified (principal); G89.29 Other chronic pain; R10.10 Upper abdominal pain, unspecified; J45.909 Unspecified asthma, uncomplicated; Z79.84 Long term (current) use of oral hypoglycemic drugs; E11.9 Type 2 diabetes mellitus without complications; K21.9 Gastro-esophageal reflux disease without esophagitis; F32.9 Major depressive disorder, single episode, unspecified; F41.9 Anxiety disorder, unspecified; Z79.899 Other long term (current) drug therapy; Z88.8 Allergy status to other drugs, medicaments and biological substances; Z91.018 Allergy to other foods; Z91.040 Latex allergy status; Z88.0 Allergy status to penicillin; Z88.6 Allergy status to analgesic agent; Z91.013 Allergy to seafood; Z90.49 Acquired absence of other specified parts of digestive tract; Z90.89 Acquired absence of other organs
CPT/HCPCS: 36415; 80053; 82150; 83690; 85025; 81003; 81025; 74018; 99285; 96365; 96375 ×3; 96376; 96361; J2270 ×2; J1200; J2550; C9113

== ENCOUNTER 2018-07-01 21:00 | Emergency (ER) | payer OTHER ==
[2018-07-01] MEDS ORDERED: PROMETHAZINE INJ 25 MG in SODIUM CHLORIDE 0.9% 50 ML IVPB STA (21:36)
[2018-07-01] MEDS ORDERED: SODIUM CHLORIDE 0.9% 1,000 ML IV STA (21:36)
[2018-07-01] MEDS ORDERED: diphenhydrAMINE 50 MG/ML 1 ML VIAL IVP STA (21:38)
--- NOTE | 2018-07-01 21:42 | ED ---
Abdominal Pain HPI - General Chief Complaint: Abdominal Pain Stated Complaint: right side pain/nausea Time Seen by Provider: 07/01/18 21:17 Source: patient, RN notes reviewed Mode of arrival: ambulatory Limitations: no limitations - History of Present Illness Initial Comments: This is a 22-year-old female who presents to the emergency department with chief complaint of abdominal pain and nausea. Patient is well-known to the emergency department with these problems. She states over the past 2 days she has had an increase in abdominal pain and nausea. She states she has been vomiting. Denies any fevers or chills, chest pain or shortness of breath, dysuria or hematuria. She does state that she has been having some diarrhea and has been sick with a sore throat for the past one week. She states that she has been unable to take her medications due to the nausea. States the pain is the same as it always is. - Related Data Home Medications Medication Instructions Recorded Confirmed [place] Carbonate 900 mg PO HS 08/27/15 07/01/18 Omeprazole [PriLOSEC] 20 mg PO BID 08/27/15 07/01/18 Levothyroxine Sodium [Synthroid] 125 mcg PO QAM 01/06/17 07/01/18 Ergocalciferol [Vitamin D2 50,000 unit PO BELL 02/13/17 07/01/18 (DRISDOL)] Montelukast [Singulair] 10 mg PO HS 05/21/17 07/01/18 cloNIDine HCL [Catapres] 0.2 mg PO HS 05/21/17 07/01/18 Potassium Chloride [K-Tab ER] 10 meq PO DAILY 09/14/17 07/01/18 Famotidine [Pepcid] 20 mg PO BID 02/04/18 07/01/18 Loratadine [Claritin] 10 mg PO DAILY 02/04/18 07/01/18 Norgestimate-Ethinyl Estradiol 1 tab PO DAILY 02/04/18 07/01/18 [Sprintec 28 Day Tablet] Pioglitazone [Actos] 15 mg PO DAILY 03/20/18 07/01/18 DULoxetine HCL [Cymbalta] 20 mg PO BID 05/01/18 07/01/18 Prochlorperazine [Compazine] 5 mg PO Q8HR PRN 05/01/18 07/01/18 QUEtiapine [SEROquel] 25 mg PO HS 05/13/18 07/01/18 Previous Rx's Medication Instructions Recorded Dicyclomine [Bentyl] 20 mg PO QID #30 tablet 06/05/18 Trimethobenzamide [Tigan] 300 mg PO TID #12 capsule 06/12/18 Allergies Allergy/AdvReac Type Severity Reaction Status Date / Time fentanyl Allergy Rash/Hives Verified 07/01/18 21:41 grape Allergy Anaphylaxis Verified 07/01/18 21:41 latex Allergy Rash/Hives Verified 07/01/18 21:41 metoclopramide [From Reglan] Allergy Unknown Verified 07/01/18 21:41 ondansetron [From Zofran] Allergy Unknown Verified 07/01/18 21:41 Penicillins Allergy Anaphylaxis Verified 07/01/18 21:41 ibuprofen [From Motrin] AdvReac GI Bleed Verified 07/01/18 21:41 prazosin AdvReac Nausea & Verified 07/01/18 21:41 Vomiting Seafood Allergy Anaphylaxis Uncoded 06/27/18 00:30 Review of Systems ROS Statement: Those systems with pertinent positive or pertinent negative responses have been documented in the HPI. ROS Other: All systems not noted in ROS Statement are negative. Past Medical History Past Medical History: Asthma, Chest Pain / Angina, Diabetes Mellitus, Fibromyalgia, GERD/Reflux, Liver Disease, Thyroid Disorder Additional Past Medical History / Comment(s): Hepatitis, Cirrhosis of the liver. Esophagalitis. Migraines. IBS. PART OF STOMACH NON-FUNCTIONING. BLOOD IN STOOL, VOMITING DAILY., History of Any Multi-Drug Resistant Organisms: None Reported Past Surgical History: Appendectomy, Cholecystectomy, Tonsillectomy Additional Past Surgical History / Comment(s): NASAL Septum repair. COLONOSCOPY., Past Anesthesia/Blood Transfusion Reactions: Motion Sickness Past Psychological History: Anxiety, Depression, PTSD Smoking Status: Never smoker Past Alcohol Use History: None Reported Past Drug Use History: None Reported - Past Family History Mother Family Medical History: No Reported History Father Family Medical History: Liver Disease Additional Family Medical History / Comment(s): cirrhosis, esophagus disease General Exam - General Exam Comments Initial Comments: General: Awake and alert, well-developed; in no apparent distress. HEENT: Head atraumatic, normocephalic. Pupils are equal, round and reactive to light. Extraocular movements intact. Oropharynx moist without erythema or exudates. Tonsils are surgically removed. Neck: Supple. Normal ROM. Cardiovascular: Regular rate and rhythm. No murmurs, rubs or gallops. Chest symmetrical. Respiratory: Lungs clear to auscultation bilaterally. No wheezes, rales or rhonchi. Normal respiratory effort with no use of accessory muscles. Abdomen: Soft, non-distended. Mild tenderness on palpation of right upper quadrant. No rigidity, rebound or guarding. Normal bowel sounds in all 4 quadrants. Musculoskeletal: Normal ROM, no tenderness bilateral upper and lower extremities. Ambulating normally. Skin: [place], warm and dry without rashes or lesions. Neurological: Alert and oriented x3. CN II-XII grossly intact. Speech is fluent and answers are appropriate. No focal neuro deficits. Psychiatric: Normal mood and affect. No overt signs of depression or anxiety noted. Limitations: no limitations Course Vital Signs 07/01/18 07/01/18 21:12 22:03 Temperature 98.4 F Pulse Rate 111 H 93 Respiratory 20 20 Rate Blood Pressure 111/78 116/83 O2 Sat by Pulse 97 99 Oximetry Medical Decision Making - Medical Decision Making This is a 22-year-old female with history of chronic abdominal pain and liver cirrhosis who presents to the emergency department with chief complaint of abdominal pain and nausea. Patient is well-known to the emergency department. CBC reveals a slightly elevated white count at 13.5 with a left shift 8.9. Patient has been vomiting over the past 2 days. CMP demonstrates a AST of 77 and an ALT of 78 which is closer to normal then patient's baseline. UA reveals no significant abnormalities. Patient was given fluids and promethazine while in the emergency department. Her symptoms have improved. She will be discharged home at this time. Vitals are stable and patient is in no acute distress. She is in agreement and voices understanding. All questions answered. - Lab Data Result diagrams: 07/01/18 21:40 07/01/18 21:40 Lab Results 07/01/18 07/01/18 07/01/18 Range/Units 21:30 21:30 21:40 WBC (3.8-10.6) k/uL RBC (3.80-5.40) m/uL Hgb (11.4-16.0) gm/dL Hct (34.0-46.0) % MCV (80.0-100.0) fL MCH (25.0-35.0) pg MCHC (31.0-37.0) g/dL RDW (11.5-15.5) % Plt Count (150-450) k/uL Neutrophils % % Lymphocytes % % Monocytes % % Eosinophils % % Basophils % % Neutrophils # (1.3-7.7) k/uL Lymphocytes # (1.0-4.8) k/uL Monocytes # (0-1.0) k/uL Eosinophils # (0-0.7) k/uL Basophils # (0-0.2) k/uL Sodium 139 (137-145) mmol/L Potassium 4.7 (3.5-5.1) mmol/L Chloride 105 (98-107) mmol/L Carbon Dioxide 23 (22-30) mmol/L Anion Gap 11 mmol/L BUN 9 (7-17) mg/dL Creatinine 0.75 (0.52-1.04) mg/dL Est GFR (CKD-EPI)AfAm >90 (>60 ml/min/1.73 sqM) Est GFR (CKD-EPI)NonAf >90 (>60 ml/min/1.73 sqM) Glucose 111 H (74-99) mg/dL Calcium 10.2 (8.4-10.2) mg/dL Total Bilirubin 0.3 (0.2-1.3) mg/dL AST 77 H (14-36) U/L ALT 70 H (9-52) U/L Alkaline Phosphatase 94 (38-126) U/L Total Protein 8.4 H (6.3-8.2) g/dL Albumin 4.2 (3.5-5.0) g/dL Amylase 40 (30-110) U/L Lipase 66 (23-300) U/L Urine Color Yellow Urine Appearance Cloudy H (Clear) Urine pH 5.5 (5.0-8.0) Ur Specific [place] 1.019 (1.001-1.035) Urine Protein Negative (Negative) Urine Glucose (UA) Negative (Negative) Urine Ketones Negative (Negative) Urine Blood Negative (Negative) Urine Nitrite Negative (Negative) Urine Bilirubin Negative (Negative) Urine Urobilinogen <2.0 (<2.0) mg/dL Ur Leukocyte Esterase Negative (Negative) Urine RBC 1 (0-5) /hpf Urine WBC 1 (0-5) /hpf Ur Squamous Epith Cells 6 H (0-4) /hpf Urine Mucus Rare H (None) /hpf Urine HCG, Qual Not Detected (Not Detectd) 07/01/18 Range/Units 21:40 WBC 13.5 H (3.8-10.6) k/uL RBC 4.64 (3.80-5.40) m/uL Hgb 13.2 (11.4-16.0) gm/dL Hct 40.8 (34.0-46.0) % MCV 87.9 (80.0-100.0) fL MCH 28.4 (25.0-35.0) pg MCHC 32.3 (31.0-37.0) g/dL RDW 13.3 (11.5-15.5) % Plt Count 370 (150-450) k/uL Neutrophils % 66 % Lymphocytes % 23 % Monocytes % 3 % Eosinophils % 6 % Basophils % 0 % Neutrophils # 8.9 H (1.3-7.7) k/uL Lymphocytes # 3.1 (1.0-4.8) k/uL Monocytes # 0.4 (0-1.0) k/uL Eosinophils # 0.8 H (0-0.7) k/uL Basophils # 0.0 (0-0.2) k/uL Sodium (137-145) mmol/L Potassium (3.5-5.1) mmol/L Chloride (98-107) mmol/L Carbon Dioxide (22-30) mmol/L Anion Gap mmol/L BUN (7-17) mg/dL Creatinine (0.52-1.04) mg/dL Est GFR (CKD-EPI)AfAm (>60 ml/min/1.73 sqM) Est GFR (CKD-EPI)NonAf (>60 ml/min/1.73 sqM) Glucose (74-99) mg/dL Calcium (8.4-10.2) mg/dL Total Bilirubin (0.2-1.3) mg/dL AST (14-36) U/L ALT (9-52) U/L Alkaline Phosphatase (38-126) U/L Total Protein (6.3-8.2) g/dL Albumin (3.5-5.0) g/dL Amylase (30-110) U/L Lipase (23-300) U/L Urine Color Urine Appearance (Clear) Urine pH (5.0-8.0) Ur Specific [place] (1.001-1.035) Urine Protein (Negative) Urine Glucose (UA) (Negative) Urine Ketones (Negative) Urine Blood (Negative) Urine Nitrite (Negative) Urine Bilirubin (Negative) Urine Urobilinogen (<2.0) mg/dL Ur Leukocyte Esterase (Negative) Urine RBC (0-5) /hpf Urine WBC (0-5) /hpf Ur Squamous Epith Cells (0-4) /hpf Urine Mucus (None) /hpf Urine HCG, Qual (Not Detectd) Disposition Clinical Impression: Nausea & vomiting, RUQ pain Disposition: HOME SELF-CARE Condition: Good Instructions: Chronic Abdominal Pain (ED) Additional Instructions: Please follow up with primary care provider within 1-2 days. Return to emergency department if symptoms should worsen or any concerns arise. Is patient prescribed a controlled substance at d/c from ED?: No Referrals: Marysol Rose DO [Primary Care Provider] - 1-2 days Time of Disposition: 22:26
[2018-07-01 21:56] LABS: Basophils % (A) 0 %; Eosinophils # (A) 0.8 k/uL (0-0.7); Eosinophils % (A) 6 %; HCT 40.8 % (34.0-46.0); HGB 13.2 gm/dL (11.4-16.0); Lymphocytes # (A) 3.1 k/uL (1.0-4.8); Lymphocytes % (A) 23 %; MCH 28.4 pg (25.0-35.0); MCHC 32.3 g/dL (31.0-37.0); MCV 87.9 fL (80.0-100.0); Monocytes # (A) 0.4 k/uL (0-1.0); Monocytes % (A) 3 %; Neutrophils # (A) 8.9 k/uL (1.3-7.7); Neutrophils % (A) 66 %; Platelet Count 370 k/uL (150-450); RBC 4.64 m/uL (3.80-5.40); RDW 13.3 % (11.5-15.5); WBC 13.5 k/uL (3.8-10.6)
[2018-07-01 22:12] LABS: ALT 70 U/L (9-52); AST 77 U/L (14-36); Albumin 4.2 g/dL (3.5-5.0); Alkaline Phosphatase 94 U/L (38-126); Amylase 40 U/L (30-110); Anion Gap 11 mmol/L; Blood Urea Nitrogen 9 mg/dL (7-17); Calcium 10.2 mg/dL (8.4-10.2); Carbon Dioxide 23 mmol/L (22-30); Chloride 105 mmol/L (98-107); Glucose 111 mg/dL (74-99); Lipase 66 U/L (23-300); Potassium 4.7 mmol/L (3.5-5.1); Sodium 139 mmol/L (137-145); Total Bilirubin 0.3 mg/dL (0.2-1.3); Total Protein 8.4 g/dL (6.3-8.2)
[2018-07-01 22:12] LABS: Appearance,Urine Cloudy (Clear); Bilirubin,Urine Negative (Negative); Blood,Urine Negative (Negative); Color,Urine Yellow; Glucose,Urine (UA) Negative (Negative); Ketones,Urine Negative (Negative); Leukocyte Esterase,Urine Negative (Negative); Mucus,Urine Rare /hpf; Nitrite,Urine Negative (Negative); PH, Urine 5.5 (5.0-8.0); Protein,Urine Negative (Negative); RBC,Urine 1 /hpf (0-5); Specific Gravity,Urine 1.019 (1.001-1.035); Squamous Epithelial Cell,Urine 6 /hpf (0-4); Urobilinogen,Urine <2.0 mg/dL (<2.0); WBC,Urine 1 /hpf (0-5)
[2018-07-01 22:56] VITALS: BP 129/82; PULSE 83; RESP 16; TEMP 98.3
== END 2018-07-01 23:00 | disposition home or self-care (01) ==
LOC: EC 21:00
DX: R11.2 Nausea with vomiting, unspecified (principal); R10.11 Right upper quadrant pain; D72.829 Elevated white blood cell count, unspecified; J45.909 Unspecified asthma, uncomplicated; E11.9 Type 2 diabetes mellitus without complications; K21.9 Gastro-esophageal reflux disease without esophagitis; E07.9 Disorder of thyroid, unspecified; F41.9 Anxiety disorder, unspecified; F32.9 Major depressive disorder, single episode, unspecified; Z86.69 Personal history of other diseases of the nervous system and sense organs; Z87.19 Personal history of other diseases of the digestive system; Z90.49 Acquired absence of other specified parts of digestive tract; Z88.0 Allergy status to penicillin; Z88.4 Allergy status to anesthetic agent; Z88.6 Allergy status to analgesic agent; Z88.8 Allergy status to other drugs, medicaments and biological substances; Z91.013 Allergy to seafood; Z91.018 Allergy to other foods; Z91.040 Latex allergy status; Z79.3 Long term (current) use of hormonal contraceptives; Z79.84 Long term (current) use of oral hypoglycemic drugs; Z79.899 Other long term (current) drug therapy
CPT/HCPCS: 99284; 96374; 96375; 96361; 36415; 80053; 82150; 83690; 85025; 81001; 81025; J1200; J2550

== ENCOUNTER 2018-07-06 19:58 | Emergency (ER) | payer OTHER ==
[2018-07-06 20:11] VITALS: BP 102/71; PULSE 99; RESP 16; TEMP 98.4
--- NOTE | 2018-07-06 20:34 | ED ---
ENT HPI - General Chief complaint: ENT Stated complaint: Sliver on tongue Time Seen by Provider: 07/06/18 20:15 Source: patient, RN notes reviewed Mode of arrival: ambulatory Limitations: no limitations - History of Present Illness Initial comments: This is a 22-year-old female who presents to the emergency department with chief complaint of sliver on her tongue. Patient states that earlier today she was eating mints. She states that she has felt a sharp sliver-like sensation at the back of her tongue. Has no other complaints. Denies fever, chills, chest pain, shortness of breath, headache or dizziness. - Related Data Home Medications Medication Instructions Recorded Confirmed [place] Carbonate 900 mg PO HS 08/27/15 07/04/18 Omeprazole [PriLOSEC] 20 mg PO BID 08/27/15 07/04/18 Levothyroxine Sodium [Synthroid] 125 mcg PO QAM 01/06/17 07/04/18 Ergocalciferol [Vitamin D2 50,000 unit PO BELL 02/13/17 07/04/18 (DRISDOL)] Montelukast [Singulair] 10 mg PO HS 05/21/17 07/04/18 cloNIDine HCL [Catapres] 0.2 mg PO HS 05/21/17 07/04/18 Potassium Chloride [K-Tab ER] 10 meq PO DAILY 09/14/17 07/04/18 Famotidine [Pepcid] 20 mg PO BID 02/04/18 07/04/18 Loratadine [Claritin] 10 mg PO DAILY 02/04/18 07/04/18 Norgestimate-Ethinyl Estradiol 1 tab PO DAILY 02/04/18 07/04/18 [Sprintec 28 Day Tablet] Pioglitazone [Actos] 15 mg PO DAILY 03/20/18 07/04/18 DULoxetine HCL [Cymbalta] 20 mg PO BID 05/01/18 07/04/18 Prochlorperazine [Compazine] 5 mg PO Q8HR PRN 05/01/18 07/04/18 QUEtiapine [SEROquel] 25 mg PO HS 05/13/18 07/04/18 Previous Rx's Medication Instructions Recorded Dicyclomine [Bentyl] 20 mg PO QID #30 tablet 06/05/18 Trimethobenzamide [Tigan] 300 mg PO TID #12 capsule 06/12/18 Allergies Allergy/AdvReac Type Severity Reaction Status Date / Time fentanyl Allergy Rash/Hives Verified 07/06/18 20:11 grape Allergy Anaphylaxis Verified 07/06/18 20:11 latex Allergy Rash/Hives Verified 07/06/18 20:11 metoclopramide [From Reglan] Allergy Unknown Verified 07/06/18 20:11 ondansetron [From Zofran] Allergy Unknown Verified 07/06/18 20:11 Penicillins Allergy Anaphylaxis Verified 07/06/18 20:11 ibuprofen [From Motrin] AdvReac GI Bleed Verified 07/06/18 20:11 prazosin AdvReac Nausea & Verified 07/06/18 20:11 Vomiting Seafood Allergy Anaphylaxis Uncoded 07/06/18 20:11 Review of Systems ROS Statement: Those systems with pertinent positive or pertinent negative responses have been documented in the HPI. ROS Other: All systems not noted in ROS Statement are negative. Past Medical History Past Medical History: Asthma, Chest Pain / Angina, Diabetes Mellitus, Fibromyalgia, GERD/Reflux, Liver Disease, Thyroid Disorder Additional Past Medical History / Comment(s): Cirrhosis of the liver. Esophagalitis. IBS. PART OF STOMACH NON-FUNCTIONING. BLOOD IN STOOL, VOMITING DAILY(vomited blood 1 week ago)., "fast heart beat", gasteoporesis, History of Any Multi-Drug Resistant Organisms: None Reported Past Surgical History: Appendectomy, Cholecystectomy, Tonsillectomy Additional Past Surgical History / Comment(s): NASAL Septum repair. COLONOSCOPY., Past Anesthesia/Blood Transfusion Reactions: Motion Sickness Past Psychological History: Anxiety, Depression, PTSD Smoking Status: Never smoker Past Alcohol Use History: None Reported Past Drug Use History: None Reported - Past Family History Mother Family Medical History: No Reported History Father Family Medical History: Liver Disease Additional Family Medical History / Comment(s): cirrhosis, esophagus disease General Exam - General Exam Comments Initial Comments: General: Awake and alert, well-developed; in no apparent distress. HEENT: Head atraumatic, normocephalic. Pupils are equal, round and reactive to light. Extraocular movements intact. Oropharynx moist without erythema. Small, sliver-like object mid-tongue. Neck: Supple. Normal ROM. Cardiovascular: Regular rate and rhythm. No murmurs, rubs or gallops. Chest symmetrical. Respiratory: Lungs clear to auscultation bilaterally. No wheezes, rales or rhonchi. Normal respiratory effort with no use of accessory muscles. Musculoskeletal: Normal ROM, no tenderness bilateral upper and lower extremities. Ambulating normally. Skin: [place], warm and dry without rashes. Neurological: Alert and oriented x3. CN II-XII grossly intact. Speech is fluent and answers are appropriate. No focal neuro deficits. Psychiatric: Normal mood and affect. No overt signs of depression or anxiety noted. Limitations: no limitations Course Vital Signs 07/06/18 20:09 Temperature 98.4 F Pulse Rate 99 Respiratory 16 Rate Blood Pressure 102/71 O2 Sat by Pulse 98 Oximetry Medical Decision Making - Medical Decision Making This is a 22-year-old female who presents to the emergency department with chief complaint of tongue sliver. Patient reports feeling a sharp sliver-like sensation at the back of her tongue. On physical examination, a small object is noted. This was removed with a pair of tweezers and is noted to be an approximately 1 cm linear sliver-like object. Patient has no other complaints. She will be discharged home at this time. She is in agreement and voices understanding. All questions answered. Disposition Clinical Impression: Sliver Disposition: HOME SELF-CARE Condition: Good Instructions: Soft Tissue Foreign Body (ED) Additional Instructions: Please follow up with primary care provider within 1-2 days. Return to emergency department if symptoms should worsen or any concerns arise. Is patient prescribed a controlled substance at d/c from ED?: No Referrals: Marysol Rose DO [Primary Care Provider] - 1-2 days Time of Disposition: 20:34
== END 2018-07-06 20:37 | disposition home or self-care (01) ==
LOC: EC 19:58
DX: T18.0XXA Foreign body in mouth, initial encounter (principal); J45.909 Unspecified asthma, uncomplicated; E11.43 Type 2 diabetes mellitus with diabetic autonomic (poly)neuropathy; K31.84 Gastroparesis; K21.9 Gastro-esophageal reflux disease without esophagitis; E07.9 Disorder of thyroid, unspecified; F32.9 Major depressive disorder, single episode, unspecified; F41.9 Anxiety disorder, unspecified; Z88.0 Allergy status to penicillin; Z88.5 Allergy status to narcotic agent; Z88.6 Allergy status to analgesic agent; Z88.8 Allergy status to other drugs, medicaments and biological substances; Z91.013 Allergy to seafood; Z91.018 Allergy to other foods; Z91.040 Latex allergy status; Z79.3 Long term (current) use of hormonal contraceptives; Z79.84 Long term (current) use of oral hypoglycemic drugs; Z79.899 Other long term (current) drug therapy; Y93.89 Activity, other specified
CPT/HCPCS: 99283

== ENCOUNTER 2018-07-08 21:55 | Emergency (ER) | payer OTHER ==
[2018-07-08 22:00] VITALS: RESP 18; TEMP 97.9
[2018-07-08] MEDS ORDERED: MORPHINE SULFATE ER 15 MG TABLET PO STA (22:46)
[2018-07-08] MEDS ORDERED: TRIMETHOBENZAMIDE 100 MG/ML 2 ML VIAL IM STA (22:47)
--- NOTE | 2018-07-08 22:53 | ED ---
General Adult HPI - General Source: patient, RN notes reviewed Mode of arrival: ambulatory Limitations: no limitations <Adair Latham P - Last Filed: 07/09/18 00:34> <Joi Agarwal P - Last Filed: 07/09/18 03:55> - General Chief complaint: Nausea/Vomiting/Diarrhea Stated complaint: nausea/vomiting/headache Time Seen by Provider: 07/08/18 22:04 - History of Present Illness Initial comments: 22-year-old female well-known to this emergency department presents for a chief complaint of nausea and vomiting. Patient states that she had an EGD done today and has had been vomiting ever since. Patient states she had an EGD done because she has had a GI bleed but denies any bleeding today. Patient states she has pain in her abdomen which is unchanged from her chronic pain due to hepatitis. SHe states the vomiting makes the pain worse but denies any new pain. Patient has no other complaints at this time including shortness of breath , chest pain, headache, or visual changes. (Adair Latham) - Related Data Home Medications Medication Instructions Recorded Confirmed [place] Carbonate 900 mg PO HS 08/27/15 07/08/18 Omeprazole [PriLOSEC] 20 mg PO BID 08/27/15 07/08/18 Levothyroxine Sodium [Synthroid] 125 mcg PO QAM 01/06/17 07/08/18 Ergocalciferol [Vitamin D2 50,000 unit PO BELL 02/13/17 07/08/18 (DRISDOL)] Montelukast [Singulair] 10 mg PO HS 05/21/17 07/08/18 cloNIDine HCL [Catapres] 0.2 mg PO HS 05/21/17 07/08/18 Potassium Chloride [K-Tab ER] 10 meq PO DAILY 09/14/17 07/08/18 Famotidine [Pepcid] 20 mg PO BID 02/04/18 07/08/18 Loratadine [Claritin] 10 mg PO DAILY 02/04/18 07/08/18 Norgestimate-Ethinyl Estradiol 1 tab PO DAILY 02/04/18 07/08/18 [Sprintec 28 Day Tablet] Pioglitazone [Actos] 15 mg PO DAILY 03/20/18 07/08/18 DULoxetine HCL [Cymbalta] 20 mg PO BID 05/01/18 07/08/18 Prochlorperazine [Compazine] 5 mg PO Q8HR PRN 05/01/18 07/08/18 QUEtiapine [SEROquel] 25 mg PO HS 05/13/18 07/08/18 Previous Rx's Medication Instructions Recorded Dicyclomine [Bentyl] 20 mg PO QID #30 tablet 06/05/18 Trimethobenzamide [Tigan] 300 mg PO TID #12 capsule 06/12/18 Allergies Allergy/AdvReac Type Severity Reaction Status Date / Time fentanyl Allergy Rash/Hives Verified 07/08/18 22:31 grape Allergy Anaphylaxis Verified 07/08/18 22:31 latex Allergy Rash/Hives Verified 07/08/18 22:31 metoclopramide [From Reglan] Allergy Unknown Verified 07/08/18 22:31 ondansetron [From Zofran] Allergy Unknown Verified 07/08/18 22:31 Penicillins Allergy Anaphylaxis Verified 07/08/18 22:31 ibuprofen [From Motrin] AdvReac GI Bleed Verified 07/08/18 22:31 prazosin AdvReac Nausea & Verified 07/08/18 22:31 Vomiting Seafood Allergy Anaphylaxis Uncoded 07/08/18 21:57 Review of Systems ROS Other: All systems not noted in ROS Statement are negative. <Adair Latham P - Last Filed: 07/09/18 00:34> ROS Other: All systems not noted in ROS Statement are negative. <Joi Agarwal P - Last Filed: 07/09/18 03:55> ROS Statement: Those systems with pertinent positive or pertinent negative responses have been documented in the HPI. Past Medical History Past Medical History: Asthma, Chest Pain / Angina, Diabetes Mellitus, Fibromyalgia, GERD/Reflux, Liver Disease, Thyroid Disorder Additional Past Medical History / Comment(s): Cirrhosis of the liver. Esophagalitis. IBS. PART OF STOMACH NON-FUNCTIONING. BLOOD IN STOOL, VOMITING DAILY(vomited blood 1 week ago)., "fast heart beat", gasteoporesis, History of Any Multi-Drug Resistant Organisms: None Reported Past Surgical History: Appendectomy, Cholecystectomy, Tonsillectomy Additional Past Surgical History / Comment(s): NASAL Septum repair. COLONOSCOPY., Past Anesthesia/Blood Transfusion Reactions: Motion Sickness Past Psychological History: Anxiety, Depression, PTSD Smoking Status: Never smoker Past Alcohol Use History: None Reported Past Drug Use History: None Reported - Past Family History Mother Family Medical History: No Reported History Father Family Medical History: Liver Disease Additional Family Medical History / Comment(s): cirrhosis, esophagus disease <Adair Latham P - Last Filed: 07/09/18 00:34> General Exam Limitations: no limitations General appearance: alert, in no apparent distress Head exam: Present: atraumatic, normocephalic, normal inspection Eye exam: Present: normal appearance, PERRL, EOMI. Absent: scleral icterus, conjunctival injection, periorbital swelling ENT exam: Present: normal exam, mucous membranes moist Neck exam: Present: normal inspection. Absent: tenderness, meningismus, lymphadenopathy Respiratory exam: Present: normal lung sounds bilaterally. Absent: respiratory distress, wheezes, rales, rhonchi, stridor Cardiovascular Exam: Present: regular rate, normal rhythm, normal heart sounds. Absent: systolic murmur, diastolic murmur, rubs, gallop, clicks GI/Abdominal exam: Present: soft, tenderness (Mild generalized tenderness without any rebound or guarding.), normal bowel sounds. Absent: distended, guarding, rebound, rigid Neurological exam: Present: alert, oriented X3, CN II-XII intact Psychiatric exam: Present: normal affect, normal mood <Adair Latham P - Last Filed: 07/09/18 00:34> Vital Signs 07/08/18 07/08/18 07/08/18 21:58 23:26 23:46 Temperature 97.9 F Pulse Rate 113 H 92 102 H Respiratory 18 18 18 Rate Blood Pressure 116/78 113/79 111/82 O2 Sat by Pulse 98 98 97 Oximetry 07/09/18 00:15 Temperature Pulse Rate 106 H Respiratory 18 Rate Blood Pressure 127/86 O2 Sat by Pulse 97 Oximetry Medical Decision Making <Adair Latham P - Last Filed: 07/09/18 00:34> <Joi Agarwal P - Last Filed: 07/09/18 03:55> - Medical Decision Making 22-year-old female presents to the emergency department for chief complaint of vomiting after receiving EGD earlier today. Patient states she has had difficulty with vomiting in the past and has gastroparesis. Patient also has consistent abdominal pain with past abdominal pain. On exam patient has mild tenderness tenderness without any guarding or rebound. I did discuss lab work with family and patient who both agree that at this point they do not want any lab work. He states they just want her symptoms of vomiting and abdominal pain treated. Patient was given oral morphine and IM Tigan. On reevaluation patient is much better and requests paperwork to go home. Patient will follow up with her GI specialist who did EGD today. She will also follow up with primary care. She'll return if she has any worsening symptoms. (Adair Latham ) I was available for consultation in the emergency department. The history and physical exam were done by the midlevel provider. I was consulted for this patient's care. I reviewed the case with the midlevel provider and based on their presentation of the patient, I agree with the assessment, medical decision making and plan of care as documented. (Joi Agarwal) Disposition Is patient prescribed a controlled substance at d/c from ED?: No Time of Disposition: 00:34 <Adair Latham P - Last Filed: 07/09/18 00:34> <Joi Agarwal - Last Filed: 07/09/18 03:55> Clinical Impression: Nausea & vomiting Disposition: HOME SELF-CARE Condition: Good Instructions: Acute Nausea and Vomiting (ED) Additional Instructions: Please continue nausea medications at home. Please follow-up with primary care and GI in 1-2 days. Return immediately to the emergency department if you have any worsening symptoms. Referrals: Marysol Rose DO [Primary Care Provider] - 1-2 days
[2018-07-09 00:16] VITALS: BP 127/86; PULSE 106
== END 2018-07-09 00:41 | disposition home or self-care (01) ==
LOC: EC 21:55
DX: R11.2 Nausea with vomiting, unspecified (principal); R10.84 Generalized abdominal pain; R19.7 Diarrhea, unspecified; J45.909 Unspecified asthma, uncomplicated; K21.9 Gastro-esophageal reflux disease without esophagitis; M79.7 Fibromyalgia; K58.0 Irritable bowel syndrome with diarrhea; E11.9 Type 2 diabetes mellitus without complications; F41.9 Anxiety disorder, unspecified; F32.9 Major depressive disorder, single episode, unspecified; F43.10 Post-traumatic stress disorder, unspecified; Z79.899 Other long term (current) drug therapy; Z79.3 Long term (current) use of hormonal contraceptives; Z88.0 Allergy status to penicillin; Z88.6 Allergy status to analgesic agent; Z91.013 Allergy to seafood; Z91.018 Allergy to other foods; Z91.040 Latex allergy status; Z88.8 Allergy status to other drugs, medicaments and biological substances; Z90.49 Acquired absence of other specified parts of digestive tract; Z87.19 Personal history of other diseases of the digestive system
CPT/HCPCS: 99283; 96372; J3250

== ENCOUNTER → 2018-07-08 | Day surgery (SDC) | payer OTHER ==
[2018-07-04 14:19] VITALS: BMI 44.5
[~2018-07-08] MED LIST changes: +GLYCOPYRROLATE 0.2 MG/ML 2 ML VIAL ONE; +HYDROmorphone (PF) 1 MG/ML ONE; +HYDROmorphone 0.5 MG/0.5 ML SYRINGE IVP PRN; +KETAMINE 10 MG/ML 20 ML VIAL ONE; +LIDOCAINE 1% INJ 10MG/ML (20 ML MDV) ONE; +MIDAZOLAM 2 MG/2 ML VIAL ONE; +PROPOFOL 10 MG/ML 20 ML VIAL IV ONE; +ePHEDrine SULFATE/0.9% NACL/PF 50 MG/5 ML SYRINGE IV ONE
[2018-07-08 07:24] VITALS: TEMP 97.9
[2018-07-08 07:31] LABS: Glucose,Whole Blood 83 mg/dL (75-99)
--- NOTE | 2018-07-08 08:41 | P.GSHP ---
History of Present Illness H&P Date: 07/08/18 Chief Complaint: GI bleed This is a 22-year-old female who's had issues of GI bleed. Patient is today for EGD colonoscopy Past Medical History Past Medical History: Asthma, Chest Pain / Angina, Diabetes Mellitus, Fibromyalgia, GERD/Reflux, Liver Disease, Thyroid Disorder Additional Past Medical History / Comment(s): Cirrhosis of the liver. Esophagalitis. IBS. PART OF STOMACH NON-FUNCTIONING. BLOOD IN STOOL, VOMITING DAILY(vomited blood 1 week ago)., "fast heart beat", gasteoporesis, History of Any Multi-Drug Resistant Organisms: None Reported Past Surgical History: Appendectomy, Cholecystectomy, Tonsillectomy Additional Past Surgical History / Comment(s): NASAL Septum repair. COLONOSCOPY., Past Anesthesia/Blood Transfusion Reactions: Motion Sickness Past Psychological History: Anxiety, Depression, PTSD Smoking Status: Never smoker Past Alcohol Use History: None Reported Past Drug Use History: None Reported - Past Family History Mother Family Medical History: No Reported History Father Family Medical History: Liver Disease Additional Family Medical History / Comment(s): cirrhosis, esophagus disease Medications and Allergies Home Medications Medication Instructions Recorded Confirmed Type [place] Carbonate 900 mg PO HS 08/27/15 07/08/18 History Omeprazole [PriLOSEC] 20 mg PO BID 08/27/15 07/08/18 History Levothyroxine Sodium [Synthroid] 125 mcg PO QAM 01/06/17 07/08/18 History Ergocalciferol [Vitamin D2 50,000 unit PO BELL 02/13/17 07/08/18 History (MAIK)] Montelukast [Singulair] 10 mg PO HS 05/21/17 07/08/18 History cloNIDine HCL [Catapres] 0.2 mg PO HS 05/21/17 07/08/18 History Potassium Chloride [K-Tab ER] 10 meq PO DAILY 09/14/17 07/08/18 History Famotidine [Pepcid] 20 mg PO BID 02/04/18 07/08/18 History Loratadine [Claritin] 10 mg PO DAILY 02/04/18 07/08/18 History Norgestimate-Ethinyl Estradiol 1 tab PO DAILY 02/04/18 07/08/18 History [Sprintec 28 Day Tablet] Pioglitazone [Actos] 15 mg PO DAILY 03/20/18 07/08/18 History DULoxetine HCL [Cymbalta] 20 mg PO BID 05/01/18 07/08/18 History Prochlorperazine [Compazine] 5 mg PO Q8HR PRN 05/01/18 07/08/18 History QUEtiapine [SEROquel] 25 mg PO HS 05/13/18 07/08/18 History Dicyclomine [Bentyl] 20 mg PO QID #30 tablet 06/05/18 07/08/18 Rx Trimethobenzamide [Tigan] 300 mg PO TID #12 capsule 06/12/18 07/08/18 Rx Allergies Allergy/AdvReac Type Severity Reaction Status Date / Time fentanyl Allergy Rash/Hives Verified 07/08/18 07:17 grape Allergy Anaphylaxis Verified 07/08/18 07:17 latex Allergy Rash/Hives Verified 07/08/18 07:17 metoclopramide [From Reglan] Allergy Unknown Verified 07/08/18 07:17 ondansetron [From Zofran] Allergy Unknown Verified 07/08/18 07:17 Penicillins Allergy Anaphylaxis Verified 07/08/18 07:17 ibuprofen [From Motrin] AdvReac GI Bleed Verified 07/08/18 07:17 prazosin AdvReac Nausea & Verified 07/08/18 07:17 Vomiting Seafood Allergy Anaphylaxis Uncoded 07/08/18 07:17 Surgical - Exam Vital Signs Temp Pulse Resp BP Pulse Ox 97.9 F 107 H 16 116/69 97 07/08/18 07:23 07/08/18 07:23 07/08/18 07:23 07/08/18 07:23 07/08/18 07:23 - General well developed, no distress - Eyes PERRL - ENT normal pinna - Neck no masses - Respiratory normal expansion - Cardiovascular Rhythm: regular - Abdomen Abdomen: soft, non tender Assessment and Plan Assessment: GI bleed. We'll perform colonoscopy and EGD.
--- NOTE | 2018-07-08 09:04 | P.OP ---
Date of Procedure: 07/08/18 Preoperative Diagnosis: GI bleed Postoperative Diagnosis: Mild gastritis Internal hemorrhoids Procedure(s) Performed: EGD Colonoscopy Anesthesia: MAC Surgeon: Sylvester James Pathology: other (Antrum) Condition: stable Disposition: PACU Description of Procedure: The patient's placed on the endoscopy table in the lateral position. She received IV sedation. The gastroscope was placed oropharynx and passed in the esophagus and stomach. The scope was then placed through the pylorus. The first and second portion of the duodenum appeared normal. Scope was then brought back the antrum and this was mildly inflamed. A biopsies performed. The scope was then retroflexed the remainder of the stomach appeared normal. There was no significant hiatal hernia. The GE junction was at 40 cm. The distal esophagus appeared normal. The proximal esophagus. Normal. Scope withdrawn the patient. Next digital rectal exam was performed which revealed internal hemorrhoids. The flexible colonoscope was then placed patient anus passed throughout the entire colon. The ileocecal valve was visualized. The cecum, ascending and transverse colon appeared normal. The descending and sigmoid colon appeared normal. The scope was then brought back and the rectum appeared normal. There is known to blood in the colon. Scope was withdrawn through the anus and internal hemorrhoids were seen. It was thought that this was perhaps the area causing the GI bleed. Scope was then withdrawn for patient.
[2018-07-08 09:32] VITALS: BP 119/70; PULSE 104; RESP 20
== END | disposition home or self-care (01) ==
LOC: ORWHC2ENDO 06:49
PROVIDERS: ATTEND Surgery
DX: K29.50 Unspecified chronic gastritis without bleeding (principal); F41.9 Anxiety disorder, unspecified; J45.909 Unspecified asthma, uncomplicated; F43.10 Post-traumatic stress disorder, unspecified; E11.9 Type 2 diabetes mellitus without complications; E66.01 Morbid (severe) obesity due to excess calories; K64.8 Other hemorrhoids; F31.9 Bipolar disorder, unspecified; K21.9 Gastro-esophageal reflux disease without esophagitis; E07.9 Disorder of thyroid, unspecified; M79.7 Fibromyalgia; Z88.6 Allergy status to analgesic agent; K58.9 Irritable bowel syndrome, unspecified; Z91.040 Latex allergy status; Z88.0 Allergy status to penicillin; Z90.49 Acquired absence of other specified parts of digestive tract; Z91.013 Allergy to seafood; Z88.8 Allergy status to other drugs, medicaments and biological substances; Z91.018 Allergy to other foods; Z79.890 Hormone replacement therapy; Z79.84 Long term (current) use of oral hypoglycemic drugs; Z79.899 Other long term (current) drug therapy; Z68.41 Body mass index [BMI] 40.0-44.9, adult
CPT/HCPCS: 96372; 99283; 81025; 88305; 45378; 43239; J2250; J3250; J2001; J1170; J2704

== ENCOUNTER 2018-08-10 01:30 | Emergency (ER) | payer OTHER ==
[2018-08-10 01:37] VITALS: BP 148/108; PULSE 100; RESP 18; TEMP 98.3
[2018-08-10] MEDS ORDERED: PROMETHAZINE INJ 25 MG/ML 1 ML VIAL IM STA (01:59)
[2018-08-10] MEDS ORDERED: MORPHINE SULFATE 2 MG/ML SYRINGE IM STA (01:59)
--- NOTE | 2018-08-10 02:01 | ED ---
Abdominal Pain HPI - General Chief Complaint: Abdominal Pain Stated Complaint: Nausea & Vomiting Time Seen by Provider: 08/10/18 01:52 Source: patient Mode of arrival: ambulatory Limitations: no limitations - History of Present Illness Initial Comments: 23-year-old female patient with past medical history significant for chronic abdominal pain and vomiting presents to the emergency department today for complaints of right upper quadrant pain and vomiting. Patient states she has had 4-5 episodes of vomiting today. States symptoms started around 4 PM. States that she has had increase in vomiting over the last 4 days with 2-3 episodes per day. She denies any fevers or chills with this. States that she is experiencing her usual pain to her right upper quadrant. She denies any constipation or diarrhea. Denies any hematemesis, hematochezia, or melena. States that she did take Compazine early this morning however because been unable to keep down her pills so she did not take her evening dose. Patient denies any recent rash, shortness breath, chest pain, back pain, numbness, tingling, dizziness, weakness, hematuria, dysuria, urinary urgency, urinary frequency, headache, visual changes, or any other complaints. - Related Data Home Medications Medication Instructions Recorded Confirmed [place] Carbonate 900 mg PO HS 08/27/15 07/29/18 Omeprazole [PriLOSEC] 20 mg PO BID 08/27/15 07/29/18 Levothyroxine Sodium [Synthroid] 125 mcg PO QAM 01/06/17 07/29/18 Ergocalciferol [Vitamin D2 50,000 unit PO BELL 02/13/17 07/29/18 (DRISDOL)] Montelukast [Singulair] 10 mg PO HS 05/21/17 07/29/18 cloNIDine HCL [Catapres] 0.2 mg PO HS 05/21/17 07/29/18 Potassium Chloride [K-Tab ER] 10 meq PO DAILY 09/14/17 07/29/18 Famotidine [Pepcid] 20 mg PO BID 02/04/18 07/29/18 Loratadine [Claritin] 10 mg PO DAILY 02/04/18 07/29/18 Norgestimate-Ethinyl Estradiol 1 tab PO DAILY 02/04/18 07/29/18 [Sprintec 28 Day Tablet] Pioglitazone [Actos] 15 mg PO DAILY 03/20/18 07/29/18 DULoxetine HCL [Cymbalta] 20 mg PO BID 05/01/18 07/29/18 Prochlorperazine [Compazine] 5 mg PO Q8HR PRN 05/01/18 07/29/18 QUEtiapine [SEROquel] 25 mg PO HS 05/13/18 07/29/18 Trimethobenzamide [Tigan] 300 mg PO TID PRN 07/29/18 07/29/18 Previous Rx's Medication Instructions Recorded Dicyclomine [Bentyl] 20 mg PO QID #30 tablet 06/05/18 Allergies Allergy/AdvReac Type Severity Reaction Status Date / Time fentanyl Allergy Rash/Hives Verified 08/10/18 01:37 grape Allergy Anaphylaxis Verified 08/10/18 01:37 latex Allergy Rash/Hives Verified 08/10/18 01:37 metoclopramide [From Reglan] Allergy Unknown Verified 08/10/18 01:37 ondansetron [From Zofran] Allergy Unknown Verified 08/10/18 01:37 Penicillins Allergy Anaphylaxis Verified 08/10/18 01:37 ibuprofen [From Motrin] AdvReac GI Bleed Verified 08/10/18 01:37 prazosin AdvReac Nausea & Verified 08/10/18 01:37 Vomiting Seafood Allergy Anaphylaxis Uncoded 08/10/18 01:37 Review of Systems ROS Statement: Those systems with pertinent positive or pertinent negative responses have been documented in the HPI. ROS Other: All systems not noted in ROS Statement are negative. Past Medical History Past Medical History: Asthma, Chest Pain / Angina, Diabetes Mellitus, Fibromyalgia, GERD/Reflux, Liver Disease, Thyroid Disorder Additional Past Medical History / Comment(s): Cirrhosis of the liver. Esophagalitis. IBS. PART OF STOMACH NON-FUNCTIONING. BLOOD IN STOOL, VOMITING DAILY(vomited blood 1 week ago)., "fast heart beat", gasteoporesis, History of Any Multi-Drug Resistant Organisms: None Reported Past Surgical History: Appendectomy, Cholecystectomy, Tonsillectomy Additional Past Surgical History / Comment(s): NASAL Septum repair. COLONOSCOPY., Past Anesthesia/Blood Transfusion Reactions: Motion Sickness Past Psychological History: Anxiety, Depression, PTSD Smoking Status: Never smoker Past Alcohol Use History: None Reported Past Drug Use History: None Reported - Past Family History Mother Family Medical History: No Reported History Father Family Medical History: Liver Disease Additional Family Medical History / Comment(s): cirrhosis, esophagus disease General Exam Limitations: no limitations General appearance: alert, in no apparent distress, other (This is a well- developed, well-nourished adult female patient in no acute distress. Vital signs upon presentation are temperature 98.2F, pulse 100, respirations 18, blood pressure 148/108, pulse ox 98% on room air.) Eye exam: Present: normal appearance, PERRL, EOMI. Absent: scleral icterus, conjunctival injection, periorbital swelling Respiratory exam: Present: normal lung sounds bilaterally. Absent: respiratory distress, wheezes, rales, rhonchi, stridor Cardiovascular Exam: Present: regular rate, normal rhythm, normal heart sounds. Absent: systolic murmur, diastolic murmur, rubs, gallop, clicks GI/Abdominal exam: Present: soft, tenderness (Right upper quadrant tenderness), normal bowel sounds. Absent: distended, guarding, rebound, rigid Neurological exam: Present: alert, oriented X3, CN II-XII intact Psychiatric exam: Present: normal affect, normal mood Skin exam: Present: warm, dry, intact, normal color. Absent: rash Course Vital Signs 08/10/18 01:34 Temperature 98.3 F Pulse Rate 100 Respiratory 18 Rate Blood Pressure 148/108 O2 Sat by Pulse 98 Oximetry Medical Decision Making - Medical Decision Making 23-year-old female patient presented to the emergency department today for evaluation of increased vomiting and right upper quadrant abdominal pain. Patient states her symptoms are a consistent with her usual chronic abdominal pain and vomiting symptoms. States she couldn't take her medication this evening because she is unable to hold down food or fluids. Patient discomfort receiving intramuscular injections of being discharged home. We did discuss starting with clear liquid diet advancing as tolerated. She is instructed to follow-up with her primary care physician for recheck as possible. Return parameters discussed in detail. She verbalizes understanding and agrees with this plan. Disposition Clinical Impression: Chronic abdominal pain, Vomiting Disposition: HOME SELF-CARE Condition: Good Instructions: Acute Nausea and Vomiting (ED), Abdominal Pain (ED) Additional Instructions: Start with clear liquid diet and advance as tolerated. Take home medications as directed. Return immediately for any new, worsening, or concerning. Is patient prescribed a controlled substance at d/c from ED?: No Referrals: Marysol Rose DO [Primary Care Provider] - 1-2 days Time of Disposition: 02:00
== END 2018-08-10 02:12 | disposition home or self-care (01) ==
LOC: EC 01:30
DX: G89.29 Other chronic pain (principal); R10.11 Right upper quadrant pain; R11.10 Vomiting, unspecified; K21.0 Gastro-esophageal reflux disease with esophagitis; K58.9 Irritable bowel syndrome, unspecified; E07.9 Disorder of thyroid, unspecified; J45.909 Unspecified asthma, uncomplicated; E11.9 Type 2 diabetes mellitus without complications; F41.9 Anxiety disorder, unspecified; F32.9 Major depressive disorder, single episode, unspecified; Z79.84 Long term (current) use of oral hypoglycemic drugs; Z79.899 Other long term (current) drug therapy; Z88.0 Allergy status to penicillin; Z88.8 Allergy status to other drugs, medicaments and biological substances; Z91.018 Allergy to other foods; Z91.040 Latex allergy status; Z88.6 Allergy status to analgesic agent; Z91.013 Allergy to seafood
CPT/HCPCS: 99283; 96372 ×2; J2550; J2270

== ENCOUNTER 2018-08-31 01:29 | Emergency (ER) | payer OTHER ==
[2018-08-31 01:36] VITALS: TEMP 98.4
[2018-08-31] MEDS ORDERED: SODIUM CHLORIDE 0.9% 1,000 ML IV STA (02:06)
[2018-08-31] MEDS ORDERED: MORPHINE SULFATE 2 MG/ML SYRINGE IVP STA (02:06)
[2018-08-31] MEDS ORDERED: PROMETHAZINE 25 MG TAB PO STA (02:06)
[2018-08-31] MEDS ORDERED: KETOROLAC 30 MG/ML 1 ML VIAL IVP STA (02:06)
--- NOTE | 2018-08-31 02:33 | ED ---
Abdominal Pain HPI - General Chief Complaint: Abdominal Pain Stated Complaint: Flank Pain Time Seen by Provider: 08/31/18 01:59 Source: patient Mode of arrival: wheelchair Limitations: no limitations - History of Present Illness Initial Comments: 23-year-old female patient with past medical history significant for chronic abdominal pain presents to the emergency department today for evaluation of right flank pain. Patient states this pain is sharp in nature and different from her usual symptoms. Patient states she has had the pain for the last 2 days. States she's been having nausea but has not had any vomiting. Patient states she has been expressing some hematuria and painful urination. States she was seen and evaluated by her primary care physician, diagnosed with urinary tract infection, and did start antibiotics today. Patient states that pain seemed to worsen this evening so she presented here for further evaluation. She denies any fevers or chills with this. Patient denies any recent rash, shortness breath, chest pain, diarrhea, constipation, back pain, numbness, tingling, dizziness, weakness, headache, visual changes, or any other complaints. - Related Data Home Medications Medication Instructions Recorded Confirmed [place] Carbonate 900 mg PO HS 08/27/15 07/29/18 Omeprazole [PriLOSEC] 20 mg PO BID 08/27/15 07/29/18 Levothyroxine Sodium [Synthroid] 125 mcg PO QAM 01/06/17 07/29/18 Ergocalciferol [Vitamin D2 50,000 unit PO BELL 02/13/17 07/29/18 (DRISDOL)] Montelukast [Singulair] 10 mg PO HS 05/21/17 07/29/18 cloNIDine HCL [Catapres] 0.2 mg PO HS 05/21/17 07/29/18 Potassium Chloride [K-Tab ER] 10 meq PO DAILY 09/14/17 07/29/18 Famotidine [Pepcid] 20 mg PO BID 02/04/18 07/29/18 Loratadine [Claritin] 10 mg PO DAILY 02/04/18 07/29/18 Norgestimate-Ethinyl Estradiol 1 tab PO DAILY 02/04/18 07/29/18 [Sprintec 28 Day Tablet] Pioglitazone [Actos] 15 mg PO DAILY 03/20/18 07/29/18 DULoxetine HCL [Cymbalta] 20 mg PO BID 05/01/18 07/29/18 Prochlorperazine [Compazine] 5 mg PO Q8HR PRN 05/01/18 07/29/18 QUEtiapine [SEROquel] 25 mg PO HS 05/13/18 07/29/18 Trimethobenzamide [Tigan] 300 mg PO TID PRN 07/29/18 07/29/18 Previous Rx's Medication Instructions Recorded Dicyclomine [Bentyl] 20 mg PO QID #30 tablet 06/05/18 Cephalexin [Keflex] 500 mg PO Q6H #40 cap 08/31/18 Allergies Allergy/AdvReac Type Severity Reaction Status Date / Time fentanyl Allergy Rash/Hives Verified 08/31/18 01:36 grape Allergy Anaphylaxis Verified 08/31/18 01:36 latex Allergy Rash/Hives Verified 08/31/18 01:36 metoclopramide [From Reglan] Allergy Unknown Verified 08/31/18 01:36 ondansetron [From Zofran] Allergy Unknown Verified 08/31/18 01:36 Penicillins Allergy Anaphylaxis Verified 08/31/18 01:36 ibuprofen [From Motrin] AdvReac GI Bleed Verified 08/31/18 01:36 prazosin AdvReac Nausea & Verified 08/31/18 01:36 Vomiting Seafood Allergy Anaphylaxis Uncoded 08/31/18 01:36 Review of Systems ROS Statement: Those systems with pertinent positive or pertinent negative responses have been documented in the HPI. ROS Other: All systems not noted in ROS Statement are negative. Past Medical History Past Medical History: Asthma, Chest Pain / Angina, Diabetes Mellitus, Fibromyalgia, GERD/Reflux, Liver Disease, Thyroid Disorder Additional Past Medical History / Comment(s): Cirrhosis of the liver. Esophagalitis. IBS. PART OF STOMACH NON-FUNCTIONING. BLOOD IN STOOL, VOMITING DAILY(vomited blood 1 week ago)., "fast heart beat", gasteoporesis, History of Any Multi-Drug Resistant Organisms: None Reported Past Surgical History: Appendectomy, Cholecystectomy, Tonsillectomy Additional Past Surgical History / Comment(s): NASAL Septum repair. COLONOSCOPY., Past Anesthesia/Blood Transfusion Reactions: Motion Sickness Past Psychological History: Anxiety, Depression, PTSD Smoking Status: Never smoker Past Alcohol Use History: None Reported Past Drug Use History: None Reported - Past Family History Mother Family Medical History: No Reported History Father Family Medical History: Liver Disease Additional Family Medical History / Comment(s): cirrhosis, esophagus disease General Exam Limitations: no limitations General appearance: alert, in no apparent distress, other (This is a well- developed, well-nourished adult female patient in no acute distress. Vital signs upon presentation are temperature 98.4F, pulse 116, respirations 17, blood pressure 134/91, pulse ox 98% on room air.) Eye exam: Present: normal appearance, PERRL, EOMI. Absent: scleral icterus, conjunctival injection, periorbital swelling ENT exam: Present: normal exam, normal oropharynx, mucous membranes moist Respiratory exam: Present: normal lung sounds bilaterally. Absent: respiratory distress, wheezes, rales, rhonchi, stridor Cardiovascular Exam: Present: regular rate, normal rhythm, normal heart sounds. Absent: systolic murmur, diastolic murmur, rubs, gallop, clicks GI/Abdominal exam: Present: soft, normal bowel sounds. Absent: distended, tenderness, guarding, rebound, rigid Back exam: Present: normal inspection, CVA tenderness (R). Absent: CVA tenderness (L) Neurological exam: Present: alert, oriented X3, CN II-XII intact Psychiatric exam: Present: normal affect, normal mood Skin exam: Present: warm, dry, intact, normal color. Absent: rash Course Vital Signs 08/31/18 08/31/18 01:33 03:20 Temperature 98.4 F Pulse Rate 116 H 100 Respiratory 17 16 Rate Blood Pressure 134/91 118/83 O2 Sat by Pulse 98 96 Oximetry Medical Decision Making - Medical Decision Making 23-year-old female patient presented to the emergency department today for evaluation of right flank pain and hematuria. Physical examination did reveal some mild right CVA tenderness. Labs reviewed and did reveal white blood cell count of 15.7, urinalysis showed cloudy appearance with 1+ protein, small amount of blood, large leukocyte esterase, 12 red blood cells, 46 white blood cells, 18 squamous epithelial cells, occasional amorphous sediment, occasional urine bacteria, and rare mucous. Patient was started on antibiotic by her primary care physician yesterday. She was given a prescription for Keflex. She is unsure of the dosing or length of duration of the prescription. With the right flank pain there is some concern for developing pyelonephritis I will give the appropriate amount and duration of Keflex to treat this. She is instructed to increase fluids. She is instructed to complete and erratic prescription and full. She is instructed to follow-up with her primary care physician for recheck in 1-2 days. Return parameters discussed in detail. She verbalizes understanding and agrees with this plan. - Lab Data Result diagrams: 08/31/18 01:55 08/31/18 01:55 Lab Results 08/31/18 08/31/18 08/31/18 Range/Units 01:55 01:55 01:55 WBC 15.7 H (3.8-10.6) k/uL RBC 4.43 (3.80-5.40) m/uL Hgb 12.2 (11.4-16.0) gm/dL Hct 38.1 (34.0-46.0) % MCV 85.9 (80.0-100.0) fL MCH 27.6 (25.0-35.0) pg MCHC 32.1 (31.0-37.0) g/dL RDW 14.0 (11.5-15.5) % Plt Count 317 (150-450) k/uL Neutrophils % 68 % Lymphocytes % 23 % Monocytes % 4 % Eosinophils % 3 % Basophils % 0 % Neutrophils # 10.6 H (1.3-7.7) k/uL Lymphocytes # 3.6 (1.0-4.8) k/uL Monocytes # 0.7 (0-1.0) k/uL Eosinophils # 0.5 (0-0.7) k/uL Basophils # 0.0 (0-0.2) k/uL Sodium 138 (137-145) mmol/L Potassium 4.2 (3.5-5.1) mmol/L Chloride 105 (98-107) mmol/L Carbon Dioxide 22 (22-30) mmol/L Anion Gap 11 mmol/L BUN 8 (7-17) mg/dL Creatinine 0.73 (0.52-1.04) mg/dL Est GFR (CKD-EPI)AfAm >90 (>60 ml/min/1.73 sqM) Est GFR (CKD-EPI)NonAf >90 (>60 ml/min/1.73 sqM) Glucose 96 (74-99) mg/dL Calcium 9.7 (8.4-10.2) mg/dL Total Bilirubin 0.4 (0.2-1.3) mg/dL AST 34 (14-36) U/L ALT 42 (9-52) U/L Alkaline Phosphatase 97 (38-126) U/L Total Protein 7.8 (6.3-8.2) g/dL Albumin 4.0 (3.5-5.0) g/dL Amylase 39 (30-110) U/L Lipase 54 (23-300) U/L Urine Color Yellow Urine Appearance Cloudy H (Clear) Urine pH 6.5 (5.0-8.0) Ur Specific [place] 1.014 (1.001-1.035) Urine Protein 1+ H (Negative) Urine Glucose (UA) Negative (Negative) Urine Ketones Negative (Negative) Urine Blood Small H (Negative) Urine Nitrite Negative (Negative) Urine Bilirubin Negative (Negative) Urine Urobilinogen <2.0 (<2.0) mg/dL Ur Leukocyte Esterase Large H (Negative) Urine RBC 12 H (0-5) /hpf Urine WBC 46 H (0-5) /hpf Ur Squamous Epith Cells 18 H (0-4) /hpf Amorphous Sediment Occasional H (None) /hpf Urine Bacteria Occasional H (None) /hpf Urine Mucus Rare H (None) /hpf - Radiology Data Radiology results: report reviewed, image reviewed 2 views of the abdomen are obtained. Report was reviewed in its entirety. Impression by Dr. Zaldivar shows nonacute abdomen with no change. Disposition Clinical Impression: Urinary tract infection Disposition: HOME SELF-CARE Condition: Good Instructions: Urinary Tract Infection in Women (ED) Additional Instructions: Increase fluids. Complete antibiotics in full. Return immediately for any new , worsening, or concerning symptoms. Prescriptions: Cephalexin [Keflex] 500 mg PO Q6H #40 cap Is patient prescribed a controlled substance at d/c from ED?: No Referrals: Marysol Rose DO [Primary Care Provider] - 1-2 days Time of Disposition: 03:04
[2018-08-31 02:45] LABS: Basophils % (A) 0 %; Eosinophils # (A) 0.5 k/uL (0-0.7); Eosinophils % (A) 3 %; HCT 38.1 % (34.0-46.0); HGB 12.2 gm/dL (11.4-16.0); Lymphocytes # (A) 3.6 k/uL (1.0-4.8); Lymphocytes % (A) 23 %; MCH 27.6 pg (25.0-35.0); MCHC 32.1 g/dL (31.0-37.0); MCV 85.9 fL (80.0-100.0); Mean Platelet Volume 7.2; Monocytes # (A) 0.7 k/uL (0-1.0); Monocytes % (A) 4 %; Neutrophils # (A) 10.6 k/uL (1.3-7.7); Neutrophils % (A) 68 %; Platelet Count 317 k/uL (150-450); RBC 4.43 m/uL (3.80-5.40); WBC 15.7 k/uL (3.8-10.6)
--- NOTE | 2018-08-31 02:46 | XR ---
EXAMINATION TYPE: XR KUB DATE OF EXAM: 08/31/2018 COMPARISON: June 27, 2018 HISTORY: Right flank pain TECHNIQUE: 2 views upright FINDINGS: There is no sign of intestinal obstruction or pneumoperitoneum. Fecal pattern is normal. Th ere are clips from cholecystectomy. Lung bases are clear. There are no pathologic calcifications over the kidneys. There is no sign of a mass. IMPRESSION: Nonacute abdomen. No change.
[2018-08-31 02:52] LABS: Amorphous Sediment,Urine Occasional /hpf; Appearance,Urine Cloudy (Clear); Bacteria,Urine Occasional /hpf; Bilirubin,Urine Negative (Negative); Blood,Urine Small (Negative); Color,Urine Yellow; Glucose,Urine (UA) Negative (Negative); Ketones,Urine Negative (Negative); Leukocyte Esterase,Urine Large (Negative); Mucus,Urine Rare /hpf; Nitrite,Urine Negative (Negative); PH, Urine 6.5 (5.0-8.0); Protein,Urine 1+ (Negative); RBC,Urine 12 /hpf (0-5); Specific Gravity,Urine 1.014 (1.001-1.035); Squamous Epithelial Cell,Urine 18 /hpf (0-4); Urobilinogen,Urine <2.0 mg/dL (<2.0); WBC,Urine 46 /hpf (0-5)
[2018-08-31 02:53] LABS: ALT 42 U/L (9-52); AST 34 U/L (14-36); Alkaline Phosphatase 97 U/L (38-126); Amylase 39 U/L (30-110); Anion Gap 11 mmol/L; Blood Urea Nitrogen 8 mg/dL (7-17); Calcium 9.7 mg/dL (8.4-10.2); Carbon Dioxide 22 mmol/L (22-30); Chloride 105 mmol/L (98-107); Glucose 96 mg/dL (74-99); Lipase 54 U/L (23-300); Potassium 4.2 mmol/L (3.5-5.1); Sodium 138 mmol/L (137-145); Total Bilirubin 0.4 mg/dL (0.2-1.3); Total Protein 7.8 g/dL (6.3-8.2)
[2018-08-31 03:24] VITALS: BP 118/83; PULSE 100; RESP 16
== END 2018-08-31 03:20 | disposition home or self-care (01) ==
LOC: EC 01:29
DX: N39.0 Urinary tract infection, site not specified (principal); R11.0 Nausea; J45.909 Unspecified asthma, uncomplicated; K21.9 Gastro-esophageal reflux disease without esophagitis; E07.9 Disorder of thyroid, unspecified; E11.9 Type 2 diabetes mellitus without complications; M79.7 Fibromyalgia; F41.9 Anxiety disorder, unspecified; F32.9 Major depressive disorder, single episode, unspecified; Z79.3 Long term (current) use of hormonal contraceptives; Z79.899 Other long term (current) drug therapy; Z91.018 Allergy to other foods; Z88.0 Allergy status to penicillin; Z88.8 Allergy status to other drugs, medicaments and biological substances; Z88.6 Allergy status to analgesic agent; Z91.013 Allergy to seafood; Z87.19 Personal history of other diseases of the digestive system; Z90.49 Acquired absence of other specified parts of digestive tract
CPT/HCPCS: 99284; 96374; 96375; 96361; 36415; 80053; 82150; 83690; 85025; 81001; 74018; J1885; J2270

== ENCOUNTER 2018-09-04 07:45 | Day surgery (SDC) | payer OTHER ==
[2018-09-03 12:54] VITALS: BMI 44.9
[~2018-09-04 07:45] MED LIST changes: -GLYCOPYRROLATE 0.2 MG/ML 2 ML VIAL ONE; -HYDROmorphone (PF) 1 MG/ML ONE; -HYDROmorphone 0.5 MG/0.5 ML SYRINGE IVP PRN; -KETAMINE 10 MG/ML 20 ML VIAL ONE; -LACTATED RINGERS 1,000 ML IV SCH; -LIDOCAINE 1% 20 ML VIAL (10MG/ML) FOR IV START INTRADERMA PRN; -LIDOCAINE 1% INJ 10MG/ML (20 ML MDV) ONE; -MIDAZOLAM 2 MG/2 ML VIAL ONE; -PROPOFOL 10 MG/ML 20 ML VIAL IV ONE; +SODIUM CHLORIDE 0.9% 1,000 ML IV SCH; -ePHEDrine SULFATE/0.9% NACL/PF 50 MG/5 ML SYRINGE IV ONE
[2018-09-04 08:20] VITALS: BP 108/71; PULSE 91; RESP 16; TEMP 98.8
[2018-09-04] MEDS ORDERED: SODIUM CHLORIDE 0.9% 500 ML 500 ML IV ONE (08:22)
[2018-09-04 08:27] LABS: Glucose,Whole Blood 142 mg/dL (75-99)
--- NOTE | 2018-09-04 10:42 | P.PCN ---
Preoperative Diagnosis: Diagnosis Recurrent palpitations and dizzy spells Twelve-lead ECG shows sinus rhythm, heart rate 78 beats a minute mildly prolonged SD narrow QRS normal ST segments Tilt table test per protocol Baseline blood pressure 127/77 mmHg pulse rate in the 70s Patient was tilted upright at an angle of 70 per protocol no significant change in her heart rate blood pressure she was laid supine at the end of the procedure Impression Mild prolonged SD interval at baseline Normal heart rate and blood pressure response to upright tilting Condition: stable Disposition: same day
== END 2018-09-04 12:00 | disposition home or self-care (01) ==
LOC: CATHEP 07:45
PROVIDERS: ATTEND Internal Medicine Clinical Cardiac Electrophysiology
DX: R42 Dizziness and giddiness (principal); R00.2 Palpitations; E11.9 Type 2 diabetes mellitus without complications; Z82.49 Family history of ischemic heart disease and other diseases of the circulatory system; Z79.890 Hormone replacement therapy; Z88.0 Allergy status to penicillin; Z88.6 Allergy status to analgesic agent; Z79.84 Long term (current) use of oral hypoglycemic drugs
CPT/HCPCS: 84703; 93660

== ENCOUNTER 2018-09-18 22:39 | Emergency (ER) | payer OTHER ==
[2018-09-18 23:01] VITALS: TEMP 98.2
[2018-09-18] MEDS ORDERED: SODIUM CHLORIDE 0.9% 1,000 ML IV STA ×2 (23:19)
[2018-09-18 23:28] VITALS: BP 120/84; PULSE 110; RESP 18
[2018-09-18] MEDS ORDERED: PROCHLORPERAZINE 5 MG TAB PO STA (23:37)
[2018-09-18] MEDS ORDERED: MORPHINE SULFATE ER 30 MG TABLET PO STA (23:37)
--- NOTE | 2018-09-18 23:40 | ED ---
Abdominal Pain HPI - General Chief Complaint: Abdominal Pain Stated Complaint: nausea,vomiting Time Seen by Provider: 09/18/18 23:13 Source: patient, RN notes reviewed, old records reviewed Mode of arrival: ambulatory Limitations: no limitations - History of Present Illness Initial Comments: Chana is a 23 year old female, well known to ED for complaints of RUQ abdominal pain, and nausea. Patient presents today with same complaints, and states that she was vomiting yesterday. Patient has been able to eat today. She reports she has been following diet recommendations. She states that she is out of her compazine as well. She states that her pain is similiar to her chronic pain, and she denies any significant changes. - Related Data Home Medications Medication Instructions Recorded Confirmed [place] Carbonate 900 mg PO HS 08/27/15 09/18/18 Omeprazole [PriLOSEC] 20 mg PO BID 08/27/15 09/18/18 Levothyroxine Sodium [Synthroid] 125 mcg PO QAM 01/06/17 09/18/18 Ergocalciferol [Vitamin D2 50,000 unit PO BELL 02/13/17 09/18/18 (DRISDOL)] Montelukast [Singulair] 10 mg PO HS 05/21/17 09/18/18 cloNIDine HCL [Catapres] 0.2 mg PO HS 05/21/17 09/18/18 Potassium Chloride [K-Tab ER] 10 meq PO DAILY 09/14/17 09/18/18 Famotidine [Pepcid] 20 mg PO BID 02/04/18 09/18/18 Loratadine [Claritin] 10 mg PO DAILY 02/04/18 09/18/18 Norgestimate-Ethinyl Estradiol 1 tab PO DAILY 02/04/18 09/18/18 [Sprintec 28 Day Tablet] Pioglitazone [Actos] 15 mg PO DAILY 03/20/18 09/18/18 DULoxetine HCL [Cymbalta] 20 mg PO BID 05/01/18 09/18/18 Prochlorperazine [Compazine] 5 mg PO Q8HR PRN 05/01/18 09/18/18 QUEtiapine [SEROquel] 25 mg PO HS 05/13/18 09/18/18 Trimethobenzamide [Tigan] 300 mg PO TID PRN 07/29/18 09/18/18 Dicyclomine [Bentyl] 20 mg PO QID PRN 09/18/18 09/18/18 Previous Rx's Medication Instructions Recorded Prochlorperazine [Compazine] 5 mg PO Q6HR #20 tab 09/18/18 Allergies Allergy/AdvReac Type Severity Reaction Status Date / Time fentanyl Allergy Rash/Hives Verified 09/18/18 23:13 grape Allergy Anaphylaxis Verified 09/18/18 23:13 latex Allergy Rash/Hives Verified 09/18/18 23:13 metoclopramide [From Reglan] Allergy Unknown Verified 09/18/18 23:13 ondansetron [From Zofran] Allergy Unknown Verified 09/18/18 23:13 Penicillins Allergy Anaphylaxis Verified 09/18/18 23:13 ibuprofen [From Motrin] AdvReac GI Bleed Verified 09/18/18 23:13 prazosin AdvReac Nausea & Verified 09/18/18 23:13 Vomiting Seafood Allergy Anaphylaxis Uncoded 09/18/18 23:01 Review of Systems ROS Statement: Those systems with pertinent positive or pertinent negative responses have been documented in the HPI. ROS Other: All systems not noted in ROS Statement are negative. Past Medical History Past Medical History: Asthma, Chest Pain / Angina, Diabetes Mellitus, Fibromyalgia, GERD/Reflux, Liver Disease, Thyroid Disorder Additional Past Medical History / Comment(s): Cirrhosis of the liver. Esophagalitis. IBS. PART OF STOMACH NON-FUNCTIONING. BLOOD IN STOOL, VOMITING DAILY(vomited blood 1 week ago)., "fast heart beat", gasteoporesis, History of Any Multi-Drug Resistant Organisms: None Reported Past Surgical History: Appendectomy, Cholecystectomy, Tonsillectomy Additional Past Surgical History / Comment(s): NASAL Septum repair. COLONOSCOPY., Past Anesthesia/Blood Transfusion Reactions: Motion Sickness Past Psychological History: Anxiety, Depression, PTSD Smoking Status: Never smoker Past Alcohol Use History: None Reported Past Drug Use History: None Reported - Past Family History Mother Family Medical History: No Reported History Father Family Medical History: Liver Disease Additional Family Medical History / Comment(s): cirrhosis, esophagus disease General Exam - General Exam Comments Initial Comments: 23 year old morbidly obese, shy and luis 23 year old female. Limitations: no limitations General appearance: alert, in no apparent distress Head exam: Present: atraumatic, normocephalic, normal inspection Eye exam: Present: normal appearance, PERRL, EOMI. Absent: scleral icterus, conjunctival injection, periorbital swelling ENT exam: Present: normal exam, mucous membranes moist Neck exam: Present: normal inspection. Absent: tenderness, meningismus, lymphadenopathy Respiratory exam: Present: normal lung sounds bilaterally. Absent: respiratory distress, wheezes, rales, rhonchi, stridor Cardiovascular Exam: Present: regular rate, normal rhythm, normal heart sounds. Absent: systolic murmur, diastolic murmur, rubs, gallop, clicks GI/Abdominal exam: Present: soft, tenderness (RUQ tenderness), normal bowel sounds. Absent: distended, guarding, rebound, rigid Extremities exam: Present: normal inspection, full ROM, normal capillary refill. Absent: tenderness, pedal edema, joint swelling, calf tenderness Back exam: Present: normal inspection Neurological exam: Present: alert, oriented X3, CN II-XII intact Course Vital Signs 09/18/18 09/18/18 22:59 23:28 Temperature 98.2 F Pulse Rate 126 H 110 H Respiratory 20 18 Rate Blood Pressure 166/114 120/84 O2 Sat by Pulse 96 97 Oximetry Medical Decision Making - Medical Decision Making 23 year old female presents to ED frequently for RUQ abdominal pain, and nausea. She vomited yesterday, but was able to eat today. She reports that this pain is similiar to all of her chronic abdominal pain.She is to follow up with Juan early next month.She appears in no distress. Patient request refill of nausea medications. Patient case discussed with Dr. Agarwal. Considering patient pain is chronic, patient states she does not want IV or labs completed today. She was given one dose of pain medications and refill for nausea medications. Discussed return parameters. Disposition Clinical Impression: Chronic abdominal pain Disposition: HOME SELF-CARE Condition: Good Instructions: Abdominal Pain (ED) Additional Instructions: Follow-up with primary care physician. Return to emergency department if any alarming signs or symptoms occur. Prescriptions: Prochlorperazine [Compazine] 5 mg PO Q6HR #20 tab Is patient prescribed a controlled substance at d/c from ED?: No Referrals: Marysol Rose DO [Primary Care Provider] - 1-2 days Time of Disposition: 23:39
== END 2018-09-18 23:54 | disposition home or self-care (01) ==
LOC: EC 22:39
DX: G89.29 Other chronic pain (principal); R10.11 Right upper quadrant pain; R11.2 Nausea with vomiting, unspecified; J45.909 Unspecified asthma, uncomplicated; E11.9 Type 2 diabetes mellitus without complications; M79.7 Fibromyalgia; K21.9 Gastro-esophageal reflux disease without esophagitis; K58.9 Irritable bowel syndrome, unspecified; F43.10 Post-traumatic stress disorder, unspecified; F32.9 Major depressive disorder, single episode, unspecified; F41.9 Anxiety disorder, unspecified; Z79.3 Long term (current) use of hormonal contraceptives; Z79.899 Other long term (current) drug therapy; Z88.5 Allergy status to narcotic agent; Z91.040 Latex allergy status; Z91.018 Allergy to other foods; Z88.0 Allergy status to penicillin; Z91.013 Allergy to seafood; Z88.8 Allergy status to other drugs, medicaments and biological substances; Z88.6 Allergy status to analgesic agent; Z90.49 Acquired absence of other specified parts of digestive tract
CPT/HCPCS: 99284; S0183

== ENCOUNTER → 2018-11-04 | Outpatient (CLI) | payer OTHER ==
[2018-11-04 10:46] LABS: Basophils % (A) 0 %; Eosinophils # (A) 0.6 k/uL (0-0.7); Eosinophils % (A) 5 %; HCT 37.6 % (34.0-46.0); HGB 11.6 gm/dL (11.4-16.0); Lymphocytes # (A) 4.1 k/uL (1.0-4.8); Lymphocytes % (A) 34 %; MCH 27.6 pg (25.0-35.0); MCHC 30.7 g/dL (31.0-37.0); MCV 89.8 fL (80.0-100.0); Mean Platelet Volume 7.6; Monocytes # (A) 0.5 k/uL (0-1.0); Monocytes % (A) 4 %; Neutrophils # (A) 6.8 k/uL (1.3-7.7); Neutrophils % (A) 56 %; Platelet Count 317 k/uL (150-450); RBC 4.19 m/uL (3.80-5.40); RDW 14.2 % (11.5-15.5); WBC 12.2 k/uL (3.8-10.6)
[2018-11-04 17:23] LABS: Albumin 4.1 g/dL (3.80-4.90); Albumin/Globulin Ratio 1.52 (1.60-3.17); Anion Gap 8.1 mmol/L (4.00-12.00); Calcium 9.5 mg/dL (8.7-10.3); Carbon Dioxide 23.9 mmol/L (21.6-31.8); Globulin 2.7 g/dL (1.6-3.3); Lithium 0.9 mmol/L (1.0-1.2); Potassium 4.4 mmol/L (3.5-5.5); Total Bilirubin 0.2 mg/dL (0.3-1.2); Total Protein 6.8 g/dL (6.2-8.2)
[2018-11-04 17:30] LABS: T4, Free (Free Thyroxine) 1.4 ng/dL (0.80-1.80)
== END | disposition home or self-care (01) ==
LOC: LABWHC1 09:29
PROVIDERS: ATTEND Psychiatry & Neurology Psychiatry
DX: Z51.81 Encounter for therapeutic drug level monitoring (principal); Z79.899 Other long term (current) drug therapy
CPT/HCPCS: 36415; 80053; 80178; 84439; 84443; 85025

== ENCOUNTER 2018-12-16 21:33 | Emergency (ER) | payer OTHER ==
[2018-12-16 22:44] VITALS: TEMP 97.2
[2018-12-16] MEDS ORDERED: ONDANSETRON 4 MG/2 ML VIAL IVP STA (23:41)
[2018-12-16] MEDS ORDERED: SODIUM CHLORIDE 0.9% 1,000 ML IV STA (23:41)
[2018-12-17 00:16] LABS: Basophils % (A) 0 %; Eosinophils # (A) 0.4 k/uL (0-0.7); Eosinophils % (A) 3 %; HCT 39.1 % (34.0-46.0); HGB 12.1 gm/dL (11.4-16.0); Lymphocytes # (A) 2.3 k/uL (1.0-4.8); Lymphocytes % (A) 17 %; MCH 27.3 pg (25.0-35.0); MCHC 31.1 g/dL (31.0-37.0); MCV 87.7 fL (80.0-100.0); Mean Platelet Volume 7.1; Monocytes # (A) 0.5 k/uL (0-1.0); Monocytes % (A) 4 %; Neutrophils # (A) 10.1 k/uL (1.3-7.7); Neutrophils % (A) 76 %; Platelet Count 311 k/uL (150-450); RBC 4.46 m/uL (3.80-5.40); RDW 14.2 % (11.5-15.5); WBC 13.3 k/uL (3.8-10.6)
[2018-12-17 00:24] LABS: ALT 55 U/L (9-52); AST 75 U/L (14-36); Alkaline Phosphatase 98 U/L (38-126); Anion Gap 9 mmol/L; Blood Urea Nitrogen 12 mg/dL (7-17); Calcium 9.8 mg/dL (8.4-10.2); Carbon Dioxide 24 mmol/L (22-30); Chloride 107 mmol/L (98-107); Glucose 102 mg/dL (74-99); INR 0.9 (<1.2); Partial Thromboplastin Time 24.1 sec (22.0-30.0); Potassium 4.8 mmol/L (3.5-5.1); Prothrombin Time 9.8 sec (9.0-12.0); Sodium 140 mmol/L (137-145); Total Bilirubin 0.4 mg/dL (0.2-1.3); Total Protein 7.9 g/dL (6.3-8.2)
[2018-12-17] MEDS ORDERED: MORPHINE SULFATE 4 MG/ML SYRINGE IV STA (00:30)
--- NOTE | 2018-12-17 00:49 | ED ---
General Adult HPI - General Chief complaint: Nausea/Vomiting/Diarrhea Stated complaint: Vomiting/cirrhosis of the liver Time Seen by Provider: 12/16/18 23:09 Source: family, RN notes reviewed, old records reviewed Mode of arrival: ambulatory Limitations: no limitations - History of Present Illness Initial comments: 23-year-old female patient past medical history of psychiatric disorder, nonalcoholic fatty liver disease, liver cirrhosis presents to ED with right upper quadrant pain, nausea vomiting. Patient states that this is the same abdominal pain which she has experienced recurrently due to her liver disease. Patient reports that her liver cirrhosis caused by psychiatric medications as well as nonalcoholic fatty liver disease. Patient denies any chest pain or shortness of breath. Patient denies any abdominal pain with exception of the right upper quadrant abdominal pain which patient states is normal for her. Patient is status post cholecystectomy. Patient denies other complaints. Patient has outpatient follow-up for her liver disease with [facility] scheduled. Patient states she primarily wants symptomatic treatment. Systemic: Pt denies fatigue, myalgia, fever/chills, rash. Pt denies weakness, night sweats, weight loss. Neuro: Pt denies headache, visual disturbances, syncope or pre-syncope. HEENT: Pt denies ocular discharge or irritation, otalgia, rhinorrhea, pharyngitis or notable lymphadenopathy. Cardiopulmonary: Pt denies chest pain, SOB, heart palpitations, dyspnea on exertion. Abdominal/GI: Pt denies n/v/d. : Pt denies dysuria, burning w/ urination, frequency/urgency. Denies new onset urinary or bowel incontinence. MSK: Pt denies myalgia, loss of strength or function in extremities. Neuro: Pt denies new onset weakness, paresthesias. - Related Data Home Medications Medication Instructions Recorded Confirmed [place] Carbonate 900 mg PO HS 08/27/15 12/16/18 Omeprazole [PriLOSEC] 20 mg PO BID 08/27/15 12/16/18 Levothyroxine Sodium [Synthroid] 125 mcg PO QAM 01/06/17 12/16/18 Ergocalciferol [Vitamin D2 50,000 unit PO BELL 02/13/17 12/16/18 (DRISDOL)] Montelukast [Singulair] 10 mg PO HS 05/21/17 12/16/18 cloNIDine HCL [Catapres] 0.2 mg PO HS 05/21/17 12/16/18 Potassium Chloride [K-Tab ER] 10 meq PO DAILY 09/14/17 12/16/18 Famotidine [Pepcid] 20 mg PO BID 02/04/18 12/16/18 Loratadine [Claritin] 10 mg PO DAILY 02/04/18 12/16/18 Norgestimate-Ethinyl Estradiol 1 tab PO DAILY 02/04/18 12/16/18 [Sprintec 28 Day Tablet] Pioglitazone [Actos] 15 mg PO DAILY 03/20/18 12/16/18 DULoxetine HCL [Cymbalta] 60 mg PO DAILY 05/01/18 12/16/18 Prochlorperazine [Compazine] 5 mg PO Q8HR PRN 05/01/18 12/16/18 QUEtiapine [SEROquel] 25 mg PO HS 05/13/18 12/16/18 Trimethobenzamide [Tigan] 300 mg PO TID PRN 07/29/18 12/16/18 Dicyclomine [Bentyl] 20 mg PO QID PRN 09/18/18 12/16/18 Allergies Allergy/AdvReac Type Severity Reaction Status Date / Time fentanyl Allergy Rash/Hives Verified 12/16/18 22:25 grape Allergy Anaphylaxis Verified 12/16/18 22:25 latex Allergy Rash/Hives Verified 12/16/18 22:25 metoclopramide [From Reglan] Allergy Unknown Verified 12/16/18 22:25 ondansetron [From Zofran] Allergy Unknown Verified 12/16/18 22:25 Penicillins Allergy Anaphylaxis Verified 12/16/18 22:25 ibuprofen [From Motrin] AdvReac GI Bleed Verified 12/16/18 22:25 prazosin AdvReac Nausea & Verified 12/16/18 22:25 Vomiting Seafood Allergy Anaphylaxis Uncoded 09/18/18 23:01 Review of Systems ROS Statement: Those systems with pertinent positive or pertinent negative responses have been documented in the HPI. ROS Other: All systems not noted in ROS Statement are negative. Past Medical History Past Medical History: Asthma, Chest Pain / Angina, Diabetes Mellitus, Fibromyalgia, GERD/Reflux, Liver Disease, Thyroid Disorder Additional Past Medical History / Comment(s): Cirrhosis of the liver. Esophagalitis. IBS. PART OF STOMACH NON-FUNCTIONING. BLOOD IN STOOL, VOMITING DAILY(vomited blood 1 week ago)., "fast heart beat", gasteoporesis, History of Any Multi-Drug Resistant Organisms: None Reported Past Surgical History: Appendectomy, Cholecystectomy, Tonsillectomy Additional Past Surgical History / Comment(s): NASAL Septum repair. [place] P[place]., Past Anesthesia/Blood Transfusion Reactions: Motion Sickness Past Psychological History: Anxiety, Depression, PTSD Smoking Status: Never smoker Past Alcohol Use History: None Reported Past Drug Use History: None Reported - Past Family History Mother Family Medical History: No Reported History Father Family Medical History: Liver Disease Additional Family Medical History / Comment(s): cirrhosis, esophagus disease General Exam - General Exam Comments Initial Comments: Constitutional: NAD, AOX3, Pt has pleasant affect. HEENT: NC/AT, trachea midline, neck supple, no lymphadenopathy. Posterior pharynx non erythematous, without exudates. External ears appear normal, without discharge. Mucous membranes moist. Eyes PERRLA, EOM intact. There is no scleral icterus. No pallor noted. Cardiopulmonary: RRR, no murmurs, rubs or gallops, no JVD noted. Lungs CTAB in anterior and posterior mccray. No peripheral edema. Abdominal exam: Abdomen soft and non-distended. Abdomen mildly tender to palpation in right upper quadrant region. Chapa sign negative. No other areas of abdominal tenderness. Bowel sounds active in LLQ. No hepatosplenomegaly. No ecchymosis Neuro: CN II-XII grossly intact. No nuchal rigidity. MSK: No posterior calf tenderness bilaterally, homans sign negative bilaterally. Posterior tibialis and radial pulse +2 bilaterally. Sensation intact in upper and lower extremities. Full active ROM in upper and lower extremities, 5/5 stregnth. Limitations: no limitations Course Vital Signs 12/16/18 12/16/18 12/16/18 22:00 22:43 23:54 Temperature 97.2 F L Pulse Rate 103 H 97 Respiratory 20 16 Rate Blood Pressure 139/94 123/59 O2 Sat by Pulse 97 97 Oximetry 12/17/18 12/17/18 00:39 01:27 Temperature Pulse Rate 107 H 86 Respiratory 14 16 Rate Blood Pressure 129/89 O2 Sat by Pulse 100 99 Oximetry Medical Decision Making - Medical Decision Making 23-year-old female patient past medical history of psychiatric disorder, nonalcoholic fatty liver disease, liver cirrhosis presents to ED with right upper quadrant pain, nausea vomiting. Patient states that this is the same abdominal pain which she has experienced recurrently due to her liver disease. Patient reports that her liver cirrhosis caused by psychiatric medications as well as nonalcoholic fatty liver disease. Patient denies any chest pain or shortness of breath. Patient denies any abdominal pain with exception of the right upper quadrant abdominal pain which patient states is normal for her. Patient is status post cholecystectomy. Patient denies other complaints. Patient has outpatient follow-up for her liver disease with [facility] scheduled. Patient states she primarily wants symptomatic treatment. Physical exam displayed: Abdomen mildly tender to palpation in right upper quadrant region. Chapa sign negative. No other areas of abdominal tenderness. Laboratory investigations revealed mild leukocytosis of 13.3. Correlation studies within normal limits. CMP revealed mildly elevated liver enzymes. KUB displayed no acute process. Patient asymptomatic. Patient comfortable with discharge and close outpatient follow-up. Patient will return to ER patient worsens in anyway. Case discussed with Dr. Whiteside. - Lab Data Result diagrams: 12/16/18 23:50 12/16/18 23:50 Lab Results 12/16/18 12/16/18 12/16/18 Range/Units 23:50 23:50 23:50 WBC 13.3 H (3.8-10.6) k/uL RBC 4.46 (3.80-5.40) m/uL Hgb 12.1 (11.4-16.0) gm/dL Hct 39.1 (34.0-46.0) % MCV 87.7 (80.0-100.0) fL MCH 27.3 (25.0-35.0) pg MCHC 31.1 (31.0-37.0) g/dL RDW 14.2 (11.5-15.5) % Plt Count 311 (150-450) k/uL Neutrophils % 76 % Lymphocytes % 17 % Monocytes % 4 % Eosinophils % 3 % Basophils % 0 % Neutrophils # 10.1 H (1.3-7.7) k/uL Lymphocytes # 2.3 (1.0-4.8) k/uL Monocytes # 0.5 (0-1.0) k/uL Eosinophils # 0.4 (0-0.7) k/uL Basophils # 0.0 (0-0.2) k/uL PT 9.8 (9.0-12.0) sec INR 0.9 (<1.2) APTT 24.1 (22.0-30.0) sec Sodium 140 (137-145) mmol/L Potassium 4.8 (3.5-5.1) mmol/L Chloride 107 (98-107) mmol/L Carbon Dioxide 24 (22-30) mmol/L Anion Gap 9 mmol/L BUN 12 (7-17) mg/dL Creatinine 0.70 (0.52-1.04) mg/dL Est GFR (CKD-EPI)AfAm >90 (>60 ml/min/1.73 sqM) Est GFR (CKD-EPI)NonAf >90 (>60 ml/min/1.73 sqM) Glucose 102 H (74-99) mg/dL Calcium 9.8 (8.4-10.2) mg/dL Total Bilirubin 0.4 (0.2-1.3) mg/dL AST 75 H (14-36) U/L ALT 55 H (9-52) U/L Alkaline Phosphatase 98 (38-126) U/L Total Protein 7.9 (6.3-8.2) g/dL Albumin 4.0 (3.5-5.0) g/dL Lipase (23-300) U/L 12/16/18 Range/Units 23:50 WBC (3.8-10.6) k/uL RBC (3.80-5.40) m/uL Hgb (11.4-16.0) gm/dL Hct (34.0-46.0) % MCV (80.0-100.0) fL MCH (25.0-35.0) pg MCHC (31.0-37.0) g/dL RDW (11.5-15.5) % Plt Count (150-450) k/uL Neutrophils % % Lymphocytes % % Monocytes % % Eosinophils % % Basophils % % Neutrophils # (1.3-7.7) k/uL Lymphocytes # (1.0-4.8) k/uL Monocytes # (0-1.0) k/uL Eosinophils # (0-0.7) k/uL Basophils # (0-0.2) k/uL PT (9.0-12.0) sec INR (<1.2) APTT (22.0-30.0) sec Sodium (137-145) mmol/L Potassium (3.5-5.1) mmol/L Chloride (98-107) mmol/L Carbon Dioxide (22-30) mmol/L Anion Gap mmol/L BUN (7-17) mg/dL Creatinine (0.52-1.04) mg/dL Est GFR (CKD-EPI)AfAm (>60 ml/min/1.73 sqM) Est GFR (CKD-EPI)NonAf (>60 ml/min/1.73 sqM) Glucose (74-99) mg/dL Calcium (8.4-10.2) mg/dL Total Bilirubin (0.2-1.3) mg/dL AST (14-36) U/L ALT (9-52) U/L Alkaline Phosphatase (38-126) U/L Total Protein (6.3-8.2) g/dL Albumin (3.5-5.0) g/dL Lipase 61 (23-300) U/L Disposition Clinical Impression: Abdominal pain Disposition: HOME SELF-CARE Condition: Stable Instructions (If sedation given, give patient instructions): Abdominal Pain (ED) Additional Instructions: Patient to adhere to previously discussed treatment plan and will take medication(s) as directed. Patient to follow up with PCP in 1-2 days. Patient to return to ED if symptoms do not improve. Please follow-up with primary care provider in 1-2 days. Please return to ER if condition worsens in any. Is patient prescribed a controlled substance at d/c from ED?: No Referrals: Marysol Rose DO [Primary Care Provider] - 1-2 days
[2018-12-17] MEDS ORDERED: ONDANSETRON 4 MG/2 ML VIAL IVP STA (01:19)
[2018-12-17 01:29] VITALS: BP 129/89; PULSE 86; RESP 16
--- NOTE | 2018-12-17 01:30 | XR ---
EXAM: XR Abdomen, 2 Views CLINICAL HISTORY: ITS.REASON XR Reason: pain TECHNIQUE: Frontal view of the abdomen/pelvis with upright view of the abdomen. COMPARISON: Abdominal XR dated 08/31/18 FINDINGS: Intraperitoneal space: No free air. Gastrointestinal tract: Limited evaluation of the bowel gas pattern due to paucity of bowel gas. No obvious dilatation. Organs: Cholecystectomy. Bones/joints: Unremarkable. IMPRESSION: No acute findings.
== END 2018-12-17 01:47 | disposition home or self-care (01) ==
LOC: EC 21:33
DX: R10.11 Right upper quadrant pain (principal); R11.2 Nausea with vomiting, unspecified; D72.829 Elevated white blood cell count, unspecified; R74.8 Abnormal levels of other serum enzymes; J45.909 Unspecified asthma, uncomplicated; E11.9 Type 2 diabetes mellitus without complications; M79.7 Fibromyalgia; K21.9 Gastro-esophageal reflux disease without esophagitis; E07.9 Disorder of thyroid, unspecified; K58.9 Irritable bowel syndrome, unspecified; F32.9 Major depressive disorder, single episode, unspecified; F41.9 Anxiety disorder, unspecified; F43.10 Post-traumatic stress disorder, unspecified; Z79.890 Hormone replacement therapy; Z79.3 Long term (current) use of hormonal contraceptives; Z79.899 Other long term (current) drug therapy; Z88.5 Allergy status to narcotic agent; Z91.010 Allergy to peanuts; Z88.6 Allergy status to analgesic agent; Z91.013 Allergy to seafood; Z88.8 Allergy status to other drugs, medicaments and biological substances; Z90.49 Acquired absence of other specified parts of digestive tract; Z88.0 Allergy status to penicillin
CPT/HCPCS: 36415; 80053; 83690; 85025; 85610; 85730; 74018; 99284; 96374; 96375; 96361; J2270; J2405

== ENCOUNTER 2019-01-19 19:09 | Emergency (ER) | payer OTHER ==
[2019-01-19 19:37] VITALS: RESP 18
[2019-01-19] MEDS ORDERED: SODIUM CHLORIDE 0.9% 1,000 ML IV STA (21:05)
[2019-01-19] MEDS ORDERED: ONDANSETRON 4 MG/2 ML VIAL IVP STA ×2 (21:08→23:04)
[2019-01-19 22:32] LABS: Basophils % (A) 0 %; Eosinophils # (A) 0.3 k/uL (0-0.7); Eosinophils % (A) 2 %; HCT 40.4 % (34.0-46.0); Hypochromasia Slight; Lymphocytes # (A) 2.6 k/uL (1.0-4.8); Lymphocytes % (A) 18 %; MCH 28.1 pg (25.0-35.0); MCHC 32.1 g/dL (31.0-37.0); MCV 87.5 fL (80.0-100.0); Mean Platelet Volume 7.8; Monocytes # (A) 0.5 k/uL (0-1.0); Monocytes % (A) 4 %; Neutrophils # (A) 10.6 k/uL (1.3-7.7); Neutrophils % (A) 75 %; Platelet Count 478 k/uL (150-450); RBC 4.62 m/uL (3.80-5.40); WBC 14.2 k/uL (3.8-10.6)
[2019-01-19 22:41] LABS: ALT 249 U/L (9-52); AST 378 U/L (14-36); Albumin 4.7 g/dL (3.5-5.0); Alkaline Phosphatase 104 U/L (38-126); Anion Gap 12 mmol/L; Blood Urea Nitrogen 10 mg/dL (7-17); Calcium 10.4 mg/dL (8.4-10.2); Carbon Dioxide 24 mmol/L (22-30); Chloride 103 mmol/L (98-107); Glucose 89 mg/dL (74-99); Sodium 139 mmol/L (137-145); Total Bilirubin 0.7 mg/dL (0.2-1.3); Total Protein 8.8 g/dL (6.3-8.2)
[2019-01-19 22:43] LABS: Potassium 6.2 mmol/L (3.5-5.1)
[2019-01-19] MEDS ORDERED: MORPHINE SULFATE 4 MG/ML SYRINGE IV STA ×2 (23:04→23:35)
--- NOTE | 2019-01-19 23:43 | ED ---
General Adult HPI - General Chief complaint: Nausea/Vomiting/Diarrhea Stated complaint: nausea, vomiting, pain Time Seen by Provider: 01/19/19 20:43 Source: patient, RN notes reviewed, old records reviewed Mode of arrival: wheelchair Limitations: no limitations - History of Present Illness Initial comments: 23-year-old female patient past medical history nonalcoholic fatty liver disease, chronically right upper quadrant pain, recurrent nausea vomiting pr esents to ED with nausea vomiting diarrhea. Patient denies any new complaints. Patient denies any new or concerning symptoms. Systemic: Pt denies fatigue, myalgia, fever/chills, rash. Pt denies weakness, night sweats, weight loss. Neuro: Pt denies headache, visual disturbances, syncope or pre-syncope. HEENT: Pt denies ocular discharge or irritation, otalgia, rhinorrhea, pharyngitis or notable lymphadenopathy. Cardiopulmonary: Pt denies chest pain, SOB, heart palpitations, dyspnea on exertion. : Pt denies dysuria, burning w/ urination, frequency/urgency. Denies new onset urinary or bowel incontinence. MSK: Pt denies myalgia, loss of strength or function in extremities. Neuro: Pt denies new onset weakness, paresthesias. - Related Data Home Medications Medication Instructions Recorded Confirmed [place] Carbonate 900 mg PO HS 08/27/15 01/19/19 Omeprazole [PriLOSEC] 20 mg PO BID 08/27/15 01/19/19 Levothyroxine Sodium [Synthroid] 125 mcg PO QAM 01/06/17 01/19/19 Ergocalciferol [Vitamin D2 50,000 unit PO BELL 02/13/17 01/19/19 (DRISDOL)] Montelukast [Singulair] 10 mg PO HS 05/21/17 01/19/19 Potassium Chloride [K-Tab ER] 10 meq PO DAILY 09/14/17 01/19/19 Famotidine [Pepcid] 20 mg PO BID 02/04/18 01/19/19 Norgestimate-Ethinyl Estradiol 1 tab PO DAILY 02/04/18 01/19/19 [Sprintec 28 Day Tablet] Pioglitazone [Actos] 15 mg PO DAILY 03/20/18 01/19/19 DULoxetine HCL [Cymbalta] 60 mg PO BID 01/19/19 01/19/19 EPINEPHrine (Auto Inject) [Epipen] 0.3 mg IM DAILY PRN 01/19/19 01/19/19 Flunisolide [Aerospan] 2 puff INHALATION RT-BID 01/19/19 01/19/19 Phentermine HCl [Adipex-P] 37.5 mg PO DAILY 01/19/19 01/19/19 Prochlorperazine [Compazine] 10 mg PO Q4H 01/19/19 01/19/19 cloNIDine HCL [Catapres] 0.2 mg PO HS 01/19/19 01/19/19 Allergies Allergy/AdvReac Type Severity Reaction Status Date / Time fentanyl Allergy Rash/Hives Verified 01/19/19 21:44 grape Allergy Anaphylaxis Verified 01/19/19 21:44 latex Allergy Rash/Hives Verified 01/19/19 21:44 metoclopramide [From Reglan] Allergy Unknown Verified 01/19/19 21:44 Penicillins Allergy Anaphylaxis Verified 01/19/19 21:44 ibuprofen [From Motrin] AdvReac GI Bleed Verified 01/19/19 21:44 prazosin AdvReac Nausea & Verified 01/19/19 21:44 Vomiting Seafood Allergy Anaphylaxis Uncoded 01/19/19 19:37 Review of Systems ROS Statement: Those systems with pertinent positive or pertinent negative responses have been documented in the HPI. ROS Other: All systems not noted in ROS Statement are negative. Past Medical History Past Medical History: Asthma, Chest Pain / Angina, Diabetes Mellitus, Fibromyalgia, GERD/Reflux, Liver Disease, Thyroid Disorder Additional Past Medical History / Comment(s): Cirrhosis of the liver. Esophagalitis. IBS. PART OF STOMACH NON-FUNCTIONING. BLOOD IN STOOL, VOMITING DAILY(vomited blood 1 week ago)., "fast heart beat", gasteoporesis, History of Any Multi-Drug Resistant Organisms: None Reported Past Surgical History: Appendectomy, Cholecystectomy, Tonsillectomy Additional Past Surgical History / Comment(s): NASAL Septum repair. COLONOSCOPY., Past Anesthesia/Blood Transfusion Reactions: Motion Sickness Past Psychological History: Anxiety, Depression, PTSD Smoking Status: Never smoker Past Alcohol Use History: None Reported Past Drug Use History: None Reported - Past Family History Mother Family Medical History: No Reported History Father Family Medical History: Liver Disease Additional Family Medical History / Comment(s): cirrhosis, esophagus disease General Exam - General Exam Comments Initial Comments: Constitutional: NAD, AOX3, Pt has pleasant affect. HEENT: NC/AT, trachea midline, neck supple, no lymphadenopathy. Posterior pharynx non erythematous, without exudates. External ears appear normal, without discharge. Mucous membranes moist. Eyes PERRLA, EOM intact. There is no scleral icterus. No pallor noted. Cardiopulmonary: RRR, no murmurs, rubs or gallops, no JVD noted. Lungs CTAB in anterior and posterior mccray. No peripheral edema. Abdominal exam: Abdomen soft and non-distended. Abdomen non-tender to palpation in all 4 quadrants. Bowel sounds active in LLQ. No hepatosplenomegaly. No ecchymosis Neuro: CN II-XII grossly intact. No nuchal rigidity. MSK: No posterior calf tenderness bilaterally, homans sign negative bilaterally. Posterior tibialis and radial pulse +2 bilaterally. Sensation intact in upper an d lower extremities. Full active ROM in upper and lower extremities, 5/5 stregnth. Limitations: no limitations Course Vital Signs 01/19/19 19:34 Temperature 98.9 F Pulse Rate 109 H Respiratory 18 Rate Blood Pressure 119/86 O2 Sat by Pulse 97 Oximetry Medical Decision Making - Medical Decision Making 23-year-old female patient past medical history nonalcoholic fatty liver disease, chronically right upper quadrant pain, recurrent nausea vomiting presents to ED with nausea vomiting diarrhea. Patient denies any new complaints. Patient denies any new or concerning symptoms. Patient vital signs stable, afebrile. Physical exam displayed no acute pathology. Laboratory investigations revealed mild leukocytosis, likely reactive. CMP revealed elevated liver enzymes, chronically. Initial potassium increased to hemolysis, repeat potassium within normal limits. EKG was performed due to evaluation of QT, no concern for acute ischemia. EKG within normal limits. Pt marvin be discharged and f/u with PCP in 1-2 days. Patient will return to ER if condition worsens. Case discussed with Dr. Whiteside. - Lab Data Result diagrams: 01/19/19 21:25 01/19/19 23:03 Lab Results 01/19/19 01/19/19 01/19/19 Range/Units 21:25 21:25 23:03 WBC 14.2 H (3.8-10.6) k/uL RBC 4.62 (3.80-5.40) m/uL Hgb 13.0 (11.4-16.0) gm/dL Hct 40.4 (34.0-46.0) % MCV 87.5 (80.0-100.0) fL MCH 28.1 (25.0-35.0) pg MCHC 32.1 (31.0-37.0) g/dL RDW 14.0 (11.5-15.5) % Plt Count 478 H (150-450) k/uL Neutrophils % 75 % Lymphocytes % 18 % Monocytes % 4 % Eosinophils % 2 % Basophils % 0 % Neutrophils # 10.6 H (1.3-7.7) k/uL Lymphocytes # 2.6 (1.0-4.8) k/uL Monocytes # 0.5 (0-1.0) k/uL Eosinophils # 0.3 (0-0.7) k/uL Basophils # 0.0 (0-0.2) k/uL Hypochromasia Slight Sodium 139 (137-145) mmol/L Potassium 6.2 H* 4.3 (3.5-5.1) mmol/L Chloride 103 (98-107) mmol/L Carbon Dioxide 24 (22-30) mmol/L Anion Gap 12 mmol/L BUN 10 (7-17) mg/dL Creatinine 0.55 (0.52-1.04) mg/dL Est GFR (CKD-EPI)AfAm >90 (>60 ml/min/1.73 sqM) Est GFR (CKD-EPI)NonAf >90 (>60 ml/min/1.73 sqM) Glucose 89 (74-99) mg/dL Calcium 10.4 H (8.4-10.2) mg/dL Total Bilirubin 0.7 (0.2-1.3) mg/dL AST 378 H (14-36) U/L ALT 249 H (9-52) U/L Alkaline Phosphatase 104 (38-126) U/L Total Protein 8.8 H (6.3-8.2) g/dL Albumin 4.7 (3.5-5.0) g/dL - EKG Data -: EKG Interpreted by Me (and dr whiteside ) EKG Comments: Ventricular rate 90, IA interval 198, QRS 70, QT/QTC 382/467. No concern for acute ischemia. Disposition Clinical Impression: Nausea & vomiting Disposition: HOME SELF-CARE Condition: Stable Instructions (If sedation given, give patient instructions): Acute Nausea and Vomiting (ED) Additional Instructions: Patient to adhere to previously discussed treatment plan and will take medication(s) as directed. Patient to follow up with PCP in 1-2 days. Patient to return to ED if symptoms do not improve. Return to ER if condition worsens. Is patient prescribed a controlled substance at d/c from ED?: No Referrals: Marysol Rose DO [Primary Care Provider] - 1-2 days
[2019-01-19 23:55] VITALS: BP 118/92; PULSE 100; TEMP 98.1
== END 2019-01-20 00:05 | disposition home or self-care (01) ==
LOC: EC 19:09
DX: R11.2 Nausea with vomiting, unspecified (principal); R10.11 Right upper quadrant pain; R19.7 Diarrhea, unspecified; D72.829 Elevated white blood cell count, unspecified; R74.8 Abnormal levels of other serum enzymes; K76.0 Fatty (change of) liver, not elsewhere classified; J45.909 Unspecified asthma, uncomplicated; I20.9 Angina pectoris, unspecified; E11.9 Type 2 diabetes mellitus without complications; M79.7 Fibromyalgia; K21.9 Gastro-esophageal reflux disease without esophagitis; E07.9 Disorder of thyroid, unspecified; K74.60 Unspecified cirrhosis of liver; F41.9 Anxiety disorder, unspecified; F32.9 Major depressive disorder, single episode, unspecified; Z90.49 Acquired absence of other specified parts of digestive tract; Z98.890 Other specified postprocedural states; Z79.3 Long term (current) use of hormonal contraceptives; Z79.51 Long term (current) use of inhaled steroids; Z79.84 Long term (current) use of oral hypoglycemic drugs; Z79.890 Hormone replacement therapy; Z79.899 Other long term (current) drug therapy; Z88.0 Allergy status to penicillin; Z88.5 Allergy status to narcotic agent; Z88.6 Allergy status to analgesic agent; Z88.8 Allergy status to other drugs, medicaments and biological substances; Z91.013 Allergy to seafood; Z91.018 Allergy to other foods; Z91.040 Latex allergy status
CPT/HCPCS: 36415; 93005; 80053; 84132; 85025; 99284; 96374; 96375; 96376; 96361; J2270; J2405

== ENCOUNTER 2019-03-04 23:14 | Emergency (ER) | payer OTHER ==
[2019-03-04 23:27] VITALS: BP 151/91; PULSE 111; RESP 20; TEMP 98.2
[2019-03-04] MEDS ORDERED: ONDANSETRON 4 MG/2 ML VIAL IVP STA (23:31)
[2019-03-04] MEDS ORDERED: SODIUM CHLORIDE 0.9% 1,000 ML IV STA (23:31)
[2019-03-04] MEDS ORDERED: MORPHINE SULFATE 4 MG/ML SYRINGE IVP STA (23:45)
--- NOTE | 2019-03-05 00:04 | ED ---
General Adult HPI - General Chief complaint: Nausea/Vomiting/Diarrhea Stated complaint: Nausea vomiting Time Seen by Provider: 03/04/19 23:27 Source: patient, family, RN notes reviewed Mode of arrival: ambulatory Limitations: no limitations - History of Present Illness Initial comments: 23-year-old female presenting for evaluation of right upper quadrant abdominal pain and vomiting. Patient had 5 episodes of vomiting today. She states she does have chronic abdominal pain and chronic nausea. She follows at [facility] as well as [facility] with fatty liver disease. She denies fever or chills. States her symptoms are very typical of her chronic abdominal pain and nausea. No lower abdominal pain. No dysuria or hematuria. - Related Data Home Medications Medication Instructions Recorded Confirmed [place] Carbonate 900 mg PO HS 08/27/15 01/19/19 Omeprazole [PriLOSEC] 20 mg PO BID 08/27/15 01/19/19 Levothyroxine Sodium [Synthroid] 125 mcg PO QAM 01/06/17 01/19/19 Ergocalciferol [Vitamin D2 50,000 unit PO BELL 02/13/17 01/19/19 (DRISDOL)] Montelukast [Singulair] 10 mg PO HS 05/21/17 01/19/19 Potassium Chloride [K-Tab ER] 10 meq PO DAILY 09/14/17 01/19/19 Famotidine [Pepcid] 20 mg PO BID 02/04/18 01/19/19 Norgestimate-Ethinyl Estradiol 1 tab PO DAILY 02/04/18 01/19/19 [Sprintec 28 Day Tablet] Pioglitazone [Actos] 15 mg PO DAILY 03/20/18 01/19/19 DULoxetine HCL [Cymbalta] 60 mg PO BID 01/19/19 01/19/19 EPINEPHrine (Auto Inject) [Epipen] 0.3 mg IM DAILY PRN 01/19/19 01/19/19 Flunisolide [Aerospan] 2 puff INHALATION RT-BID 01/19/19 01/19/19 Phentermine HCl [Adipex-P] 37.5 mg PO DAILY 01/19/19 01/19/19 Prochlorperazine [Compazine] 10 mg PO Q4H 01/19/19 01/19/19 cloNIDine HCL [Catapres] 0.2 mg PO HS 01/19/19 01/19/19 Allergies Allergy/AdvReac Type Severity Reaction Status Date / Time fentanyl Allergy Rash/Hives Verified 03/04/19 23:27 grape Allergy Anaphylaxis Verified 03/04/19 23:27 latex Allergy Rash/Hives Verified 03/04/19 23:27 metoclopramide [From Reglan] Allergy Unknown Verified 03/04/19 23:27 Penicillins Allergy Anaphylaxis Verified 03/04/19 23:27 ibuprofen [From Motrin] AdvReac GI Bleed Verified 03/04/19 23:27 prazosin AdvReac Nausea & Verified 03/04/19 23:27 Vomiting Seafood Allergy Anaphylaxis Uncoded 03/04/19 23:27 Review of Systems ROS Statement: Those systems with pertinent positive or pertinent negative responses have been documented in the HPI. ROS Other: All systems not noted in ROS Statement are negative. Past Medical History Past Medical History: Asthma, Chest Pain / Angina, Diabetes Mellitus, Fibromyalgia, GERD/Reflux, Liver Disease, Thyroid Disorder Additional Past Medical History / Comment(s): Cirrhosis of the liver. Esophagalitis. IBS. PART OF STOMACH NON-FUNCTIONING. BLOOD IN STOOL, VOMITING DAILY(vomited blood 1 week ago)., "fast heart beat", gasteoporesis, History of Any Multi-Drug Resistant Organisms: None Reported Past Surgical History: Appendectomy, Cholecystectomy, Tonsillectomy Additional Past Surgical History / Comment(s): NASAL Septum repair. COLONOSCOPY., Past Anesthesia/Blood Transfusion Reactions: Motion Sickness Past Psychological History: Anxiety, Depression, PTSD Smoking Status: Never smoker Past Alcohol Use History: None Reported Past Drug Use History: None Reported - Past Family History Mother Family Medical History: No Reported History Father Family Medical History: Liver Disease Additional Family Medical History / Comment(s): cirrhosis, esophagus disease General Exam Limitations: no limitations General appearance: alert, in no apparent distress Head exam: Present: atraumatic, normocephalic Eye exam: Present: normal appearance, PERRL ENT exam: Present: normal exam Neck exam: Present: normal inspection. Absent: tenderness Respiratory exam: Present: normal lung sounds bilaterally. Absent: respiratory distress, wheezes Cardiovascular Exam: Present: regular rate, normal rhythm GI/Abdominal exam: Present: soft, tenderness (Minimal right upper quadrant tenderness). Absent: distended, guarding, rebound Back exam: Present: normal inspection Neurological exam: Present: alert, oriented X3, CN II-XII intact. Absent: motor sensory deficit Psychiatric exam: Present: normal affect, normal mood Skin exam: Present: warm, dry, intact. Absent: cyanosis, diaphoretic Course Vital Signs 03/04/19 23:24 Temperature 98.2 F Pulse Rate 111 H Respiratory 20 Rate Blood Pressure 151/91 O2 Sat by Pulse 97 Oximetry Medical Decision Making - Medical Decision Making 23-year-old female with abdominal pain, vomiting. Patient is overall well- appearing, she has a nonsurgical abdomen. She is given symptomatic control in the emergency department including Zofran and morphine. She feels significantly better on reevaluation. She has no episodes of vomiting while in the emergency department. She has mild leukocytosis which is improved prior. She has mild transaminitis which is also improved from prior. Laboratory studies are otherwise unremarkable. She is feeling better, she is instructed on some dietary modification. She will continue to follow with her specialist. - Lab Data Result diagrams: 03/05/19 00:04 03/05/19 00:04 Lab Results 03/04/19 03/04/19 03/05/19 Range/Units 00:04 00:04 00:04 WBC (3.8-10.6) k/uL RBC (3.80-5.40) m/uL Hgb (11.4-16.0) gm/dL Hct (34.0-46.0) % MCV (80.0-100.0) fL MCH (25.0-35.0) pg MCHC (31.0-37.0) g/dL RDW (11.5-15.5) % Plt Count (150-450) k/uL Neutrophils % % Lymphocytes % % Monocytes % % Eosinophils % % Basophils % % Neutrophils # (1.3-7.7) k/uL Lymphocytes # (1.0-4.8) k/uL Monocytes # (0-1.0) k/uL Eosinophils # (0-0.7) k/uL Basophils # (0-0.2) k/uL Hypochromasia PT (9.0-12.0) sec INR (<1.2) APTT (22.0-30.0) sec Sodium 138 (137-145) mmol/L Potassium 4.4 (3.5-5.1) mmol/L Chloride 106 (98-107) mmol/L Carbon Dioxide 22 (22-30) mmol/L Anion Gap 10 mmol/L BUN 9 (7-17) mg/dL Creatinine 0.57 (0.52-1.04) mg/dL Est GFR (CKD-EPI)AfAm >90 (>60 ml/min/1.73 sqM) Est GFR (CKD-EPI)NonAf >90 (>60 ml/min/1.73 sqM) Glucose 107 H (74-99) mg/dL Calcium 9.5 (8.4-10.2) mg/dL Total Bilirubin 0.4 (0.2-1.3) mg/dL AST 166 H (14-36) U/L ALT 98 H (9-52) U/L Alkaline Phosphatase 102 (38-126) U/L Total Protein 7.9 (6.3-8.2) g/dL Albumin 4.1 (3.5-5.0) g/dL Amylase 39 (30-110) U/L Lipase 61 (23-300) U/L Urine Color Yellow Urine Appearance Cloudy H (Clear) Urine pH 6.5 (5.0-8.0) Ur Specific [place] 1.020 (1.001-1.035) Urine Protein 2+ H (Negative) Urine Glucose (UA) Negative (Negative) Urine Ketones Negative (Negative) Urine Blood Negative (Negative) Urine Nitrite Negative (Negative) Urine Bilirubin Negative (Negative) Urine Urobilinogen <2.0 (<2.0) mg/dL Ur Leukocyte Esterase Trace H (Negative) Urine RBC 3 (0-5) /hpf Urine WBC 3 (0-5) /hpf Ur Squamous Epith Cells 24 H (0-4) /hpf Urine Mucus Occasional H (None) /hpf Urine HCG, Qual Not Detected (Not Detectd) 03/05/19 03/05/19 Range/Units 00:04 00:04 WBC 12.2 H (3.8-10.6) k/uL RBC 4.39 (3.80-5.40) m/uL Hgb 11.8 (11.4-16.0) gm/dL Hct 37.7 (34.0-46.0) % MCV 86.0 (80.0-100.0) fL MCH 26.8 (25.0-35.0) pg MCHC 31.1 (31.0-37.0) g/dL RDW 14.6 (11.5-15.5) % Plt Count 341 (150-450) k/uL Neutrophils % 73 % Lymphocytes % 19 % Monocytes % 3 % Eosinophils % 4 % Basophils % 1 % Neutrophils # 8.9 H (1.3-7.7) k/uL Lymphocytes # 2.3 (1.0-4.8) k/uL Monocytes # 0.3 (0-1.0) k/uL Eosinophils # 0.5 (0-0.7) k/uL Basophils # 0.1 (0-0.2) k/uL Hypochromasia Slight PT 9.8 (9.0-12.0) sec INR 0.9 (<1.2) APTT 24.5 (22.0-30.0) sec Sodium (137-145) mmol/L Potassium (3.5-5.1) mmol/L Chloride (98-107) mmol/L Carbon Dioxide (22-30) mmol/L Anion Gap mmol/L BUN (7-17) mg/dL Creatinine (0.52-1.04) mg/dL Est GFR (CKD-EPI)AfAm (>60 ml/min/1.73 sqM) Est GFR (CKD-EPI)NonAf (>60 ml/min/1.73 sqM) Glucose (74-99) mg/dL Calcium (8.4-10.2) mg/dL Total Bilirubin (0.2-1.3) mg/dL AST (14-36) U/L ALT (9-52) U/L Alkaline Phosphatase (38-126) U/L Total Protein (6.3-8.2) g/dL Albumin (3.5-5.0) g/dL Amylase (30-110) U/L Lipase (23-300) U/L Urine Color Urine Appearance (Clear) Urine pH (5.0-8.0) Ur Specific [place] (1.001-1.035) Urine Protein (Negative) Urine Glucose (UA) (Negative) Urine Ketones (Negative) Urine Blood (Negative) Urine Nitrite (Negative) Urine Bilirubin (Negative) Urine Urobilinogen (<2.0) mg/dL Ur Leukocyte Esterase (Negative) Urine RBC (0-5) /hpf Urine WBC (0-5) /hpf Ur Squamous Epith Cells (0-4) /hpf Urine Mucus (None) /hpf Urine HCG, Qual (Not Detectd) Disposition Clinical Impression: NAFLD (nonalcoholic fatty liver disease), Nausea & vomiting, RUQ pain Disposition: HOME SELF-CARE Condition: Fair Instructions (If sedation given, give patient instructions): Abdominal Pain (ED), Acute Nausea and Vomiting (ED) Is patient prescribed a controlled substance at d/c from ED?: No Referrals: Marysol Rose DO [Primary Care Provider] - 1-2 days Time of Disposition: 00:42
[2019-03-05 00:22] LABS: Basophils # (A) 0.1 k/uL (0-0.2); Basophils % (A) 1 %; Eosinophils # (A) 0.5 k/uL (0-0.7); Eosinophils % (A) 4 %; HCT 37.7 % (34.0-46.0); HGB 11.8 gm/dL (11.4-16.0); Hypochromasia Slight; Lymphocytes # (A) 2.3 k/uL (1.0-4.8); Lymphocytes % (A) 19 %; MCH 26.8 pg (25.0-35.0); MCHC 31.1 g/dL (31.0-37.0); Mean Platelet Volume 7.3; Monocytes # (A) 0.3 k/uL (0-1.0); Monocytes % (A) 3 %; Neutrophils # (A) 8.9 k/uL (1.3-7.7); Neutrophils % (A) 73 %; Platelet Count 341 k/uL (150-450); RBC 4.39 m/uL (3.80-5.40); RDW 14.6 % (11.5-15.5); WBC 12.2 k/uL (3.8-10.6)
[2019-03-05 00:27] LABS: Appearance,Urine Cloudy (Clear); Bilirubin,Urine Negative (Negative); Blood,Urine Negative (Negative); Color,Urine Yellow; Glucose,Urine (UA) Negative (Negative); Ketones,Urine Negative (Negative); Leukocyte Esterase,Urine Trace (Negative); Mucus,Urine Occasional /hpf; Nitrite,Urine Negative (Negative); PH, Urine 6.5 (5.0-8.0); Protein,Urine 2+ (Negative); RBC,Urine 3 /hpf (0-5); Squamous Epithelial Cell,Urine 24 /hpf (0-4); Urobilinogen,Urine <2.0 mg/dL (<2.0); WBC,Urine 3 /hpf (0-5)
[2019-03-05 00:31] LABS: ALT 98 U/L (9-52); AST 166 U/L (14-36); African American GFR (CKD) >90 (>60 ml/min/1.73 sqM); Albumin 4.1 g/dL (3.5-5.0); Alkaline Phosphatase 102 U/L (38-126); Amylase 39 U/L (30-110); Anion Gap 10 mmol/L; Blood Urea Nitrogen 9 mg/dL (7-17); Calcium 9.5 mg/dL (8.4-10.2); Carbon Dioxide 22 mmol/L (22-30); Chloride 106 mmol/L (98-107); Glucose 107 mg/dL (74-99); INR 0.9 (<1.2); Lipase 61 U/L (23-300); Partial Thromboplastin Time 24.5 sec (22.0-30.0); Potassium 4.4 mmol/L (3.5-5.1); Prothrombin Time 9.8 sec (9.0-12.0); Sodium 138 mmol/L (137-145); Total Bilirubin 0.4 mg/dL (0.2-1.3); Total Protein 7.9 g/dL (6.3-8.2)
== END 2019-03-05 00:34 | disposition home or self-care (01) ==
LOC: EC 23:14
DX: K76.0 Fatty (change of) liver, not elsewhere classified (principal); R10.11 Right upper quadrant pain; R11.2 Nausea with vomiting, unspecified; D72.829 Elevated white blood cell count, unspecified; R74.0 Nonspecific elevation of levels of transaminase and lactic acid dehydrogenase [LDH]; J45.909 Unspecified asthma, uncomplicated; E11.43 Type 2 diabetes mellitus with diabetic autonomic (poly)neuropathy; K31.84 Gastroparesis; M79.7 Fibromyalgia; K21.9 Gastro-esophageal reflux disease without esophagitis; E07.9 Disorder of thyroid, unspecified; F32.9 Major depressive disorder, single episode, unspecified; F41.9 Anxiety disorder, unspecified; Z88.0 Allergy status to penicillin; Z88.5 Allergy status to narcotic agent; Z88.6 Allergy status to analgesic agent; Z88.8 Allergy status to other drugs, medicaments and biological substances; Z91.013 Allergy to seafood; Z91.018 Allergy to other foods; Z91.040 Latex allergy status; Z79.3 Long term (current) use of hormonal contraceptives; Z79.51 Long term (current) use of inhaled steroids; Z79.84 Long term (current) use of oral hypoglycemic drugs; Z79.890 Hormone replacement therapy; Z79.899 Other long term (current) drug therapy; Z87.19 Personal history of other diseases of the digestive system; Z90.49 Acquired absence of other specified parts of digestive tract; Z83.79 Family history of other diseases of the digestive system
CPT/HCPCS: 36415; 80053; 81001; 81025; 82150; 83690; 85025; 85610; 85730; 96361; 96374; 96375; 99284

== ENCOUNTER 2019-04-07 00:40 | Emergency (ER) | payer OTHER ==
--- NOTE | 2019-04-07 01:00 | ED ---
Abdominal Pain HPI - General Stated Complaint: abd pain Time Seen by Provider: 04/07/19 01:00 - History of Present Illness Initial Comments: Chana is a 23-year-old female with extensive past medical history most significant for chronic abdominal pain secondary to cirrhosis due to psychiatric medications. Patient presents the emergency department today by ambulance for evaluation of abdominal pain. Patient reports she has had diarrhea for 2 days duration, she denies any abnormal food intake, she denies any sick contacts, her mother who lives with her does not have similar symptoms. Patient reports that today she began having pain in her right upper quadrant 1 prompted her to call an ambulance come to the hospital. 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 Patient is still on medications for acid reflux as well as multiple psychiatric medications. - Related Data Home Medications Medication Instructions Recorded Confirmed [place] Carbonate 900 mg PO HS 08/27/15 01/19/19 Omeprazole [PriLOSEC] 20 mg PO BID 08/27/15 01/19/19 Levothyroxine Sodium [Synthroid] 125 mcg PO QAM 01/06/17 01/19/19 Ergocalciferol [Vitamin D2 50,000 unit PO BELL 02/13/17 01/19/19 (DRISDOL)] Montelukast [Singulair] 10 mg PO HS 05/21/17 01/19/19 Potassium Chloride [K-Tab ER] 10 meq PO DAILY 09/14/17 01/19/19 Famotidine [Pepcid] 20 mg PO BID 02/04/18 01/19/19 Norgestimate-Ethinyl Estradiol 1 tab PO DAILY 02/04/18 01/19/19 [Sprintec 28 Day Tablet] Pioglitazone [Actos] 15 mg PO DAILY 03/20/18 01/19/19 DULoxetine HCL [Cymbalta] 60 mg PO BID 01/19/19 01/19/19 EPINEPHrine (Auto Inject) [Epipen] 0.3 mg IM DAILY PRN 01/19/19 01/19/19 Flunisolide [Aerospan] 2 puff INHALATION RT-BID 01/19/19 01/19/19 Phentermine HCl [Adipex-P] 37.5 mg PO DAILY 01/19/19 01/19/19 Prochlorperazine [Compazine] 10 mg PO Q4H 01/19/19 01/19/19 cloNIDine HCL [Catapres] 0.2 mg PO HS 01/19/19 01/19/19 Allergies Allergy/AdvReac Type Severity Reaction Status Date / Time fentanyl Allergy Rash/Hives Verified 03/04/19 23:27 grape Allergy Anaphylaxis Verified 03/04/19 23:27 latex Allergy Rash/Hives Verified 03/04/19 23:27 metoclopramide [From Reglan] Allergy Unknown Verified 03/04/19 23:27 Penicillins Allergy Anaphylaxis Verified 03/04/19 23:27 ibuprofen [From Motrin] AdvReac GI Bleed Verified 03/04/19 23:27 prazosin AdvReac Nausea & Verified 03/04/19 23:27 Vomiting Seafood Allergy Anaphylaxis Uncoded 03/04/19 23:27 Review of Systems ROS Statement: Those systems with pertinent positive or pertinent negative responses have been documented in the HPI. ROS Other: All systems not noted in ROS Statement are negative. Past Medical History Past Medical History: Asthma, Chest Pain / Angina, Diabetes Mellitus, Fibromyalgia, GERD/Reflux, Liver Disease, Thyroid Disorder Additional Past Medical History / Comment(s): Cirrhosis of the liver. Esophagalitis. IBS. PART OF STOMACH NON-FUNCTIONING. BLOOD IN STOOL, VOMITING DAILY(vomited blood 1 week ago)., "fast heart beat", gasteoporesis, History of Any Multi-Drug Resistant Organisms: None Reported Past Surgical History: Appendectomy, Cholecystectomy, Tonsillectomy Additional Past Surgical History / Comment(s): NASAL Septum repair. COLONOSCOPY., Past Anesthesia/Blood Transfusion Reactions: Motion Sickness Past Psychological History: Anxiety, Depression, PTSD Smoking Status: Never smoker Past Alcohol Use History: None Reported Past Drug Use History: None Reported - Past Family History Mother Family Medical History: No Reported History Father Family Medical History: Liver Disease Additional Family Medical History / Comment(s): cirrhosis, esophagus disease General Exam - General Exam Comments Initial Comments: Physical Exam GENERAL: Patient is well-developed and well-nourished. Patient is nontoxic and well- hydrated and is in no distress. HENT: Normocephalic, Atraumatic. EYES: PERRL, EOMI PULMONARY: Unlabored respirations. No audible rales rhonchi or wheezing was noted. CARDIOVASCULAR: There is a regular rate and rhythm without any murmurs gallops or rubs. ABDOMEN: Soft and nontender with normal bowel sounds. Morbidly obese nOn peritoneal SKIN: Skin is clear with no lesions or rashes and otherwise unremarkable. : Deferred NEUROLOGIC: Patient is alert and oriented x3. Moving all extremities spontaneously MUSCULOSKELETAL: Normal extremities with adequate strength and full range of motion. No lower extremity swelling or edema. No calf tenderness. PSYCHIATRIC: Normal psychiatric evaluation. Course Vital Signs 04/07/19 04/07/19 00:42 04:00 Temperature 98.6 F 98.3 F Pulse Rate 117 H 72 Respiratory 18 17 Rate Blood Pressure 138/92 132/75 O2 Sat by Pulse 96 99 Oximetry Medical Decision Making - Medical Decision Making Patient was seen and evaluated, history is obtained from the patient and EMS Very familiar with this patient as I've seen her multiple times in the past next line patient has chronic right upper quadrant abdominal pain, she's been doing quite well recently has not been visiting the hospital frequently. Today she was having exacerbation of her chronic abdominal pain, in addition her mother was feeling quite ill and was planning come the hospital anyway so they decided to call an ambulance for both of them to come in Labs ordered IVF ordered Upset the patient's baseline. Patient resting comfortably at this time patient is stable for discharge home. - Lab Data Result diagrams: 04/07/19 02:35 04/07/19 02:35 Lab Results 04/07/19 04/07/19 Range/Units 02:35 02:35 WBC 13.6 H (3.8-10.6) k/uL RBC 4.38 (3.80-5.40) m/uL Hgb 11.6 (11.4-16.0) gm/dL Hct 37.6 (34.0-46.0) % MCV 85.7 (80.0-100.0) fL MCH 26.4 (25.0-35.0) pg MCHC 30.8 L (31.0-37.0) g/dL RDW 14.4 (11.5-15.5) % Plt Count 326 (150-450) k/uL Neutrophils % 73 % Lymphocytes % 21 % Monocytes % 3 % Eosinophils % 3 % Basophils % 0 % Neutrophils # 9.9 H (1.3-7.7) k/uL Lymphocytes # 2.8 (1.0-4.8) k/uL Monocytes # 0.4 (0-1.0) k/uL Eosinophils # 0.4 (0-0.7) k/uL Basophils # 0.0 (0-0.2) k/uL Sodium 139 (137-145) mmol/L Potassium 3.8 (3.5-5.1) mmol/L Chloride 105 (98-107) mmol/L Carbon Dioxide 24 (22-30) mmol/L Anion Gap 10 mmol/L BUN 9 (7-17) mg/dL Creatinine 0.66 (0.52-1.04) mg/dL Est GFR (CKD-EPI)AfAm >90 (>60 ml/min/1.73 sqM) Est GFR (CKD-EPI)NonAf >90 (>60 ml/min/1.73 sqM) Glucose 92 (74-99) mg/dL Calcium 9.4 (8.4-10.2) mg/dL Total Bilirubin 0.4 (0.2-1.3) mg/dL AST 68 H (14-36) U/L ALT 70 H (9-52) U/L Alkaline Phosphatase 97 (38-126) U/L Total Protein 7.6 (6.3-8.2) g/dL Albumin 4.0 (3.5-5.0) g/dL Amylase 36 (30-110) U/L Lipase 65 (23-300) U/L Disposition Clinical Impression: Abdominal pain Disposition: HOME SELF-CARE Condition: Stable Instructions (If sedation given, give patient instructions): Abdominal Pain (ED) Is patient prescribed a controlled substance at d/c from ED?: No Referrals: Marysol Rose DO [Primary Care Provider] - 1-2 days
[2019-04-07] MEDS ORDERED: SODIUM CHLORIDE 0.9% 1,000 ML IV STA (01:53)
[2019-04-07 02:47] LABS: Basophils % (A) 0 %; Eosinophils # (A) 0.4 k/uL (0-0.7); Eosinophils % (A) 3 %; HCT 37.6 % (34.0-46.0); HGB 11.6 gm/dL (11.4-16.0); Lymphocytes # (A) 2.8 k/uL (1.0-4.8); Lymphocytes % (A) 21 %; MCH 26.4 pg (25.0-35.0); MCHC 30.8 g/dL (31.0-37.0); MCV 85.7 fL (80.0-100.0); Mean Platelet Volume 6.6; Monocytes # (A) 0.4 k/uL (0-1.0); Monocytes % (A) 3 %; Neutrophils # (A) 9.9 k/uL (1.3-7.7); Neutrophils % (A) 73 %; Platelet Count 326 k/uL (150-450); RBC 4.38 m/uL (3.80-5.40); RDW 14.4 % (11.5-15.5); WBC 13.6 k/uL (3.8-10.6)
[2019-04-07 02:55] LABS: ALT 70 U/L (9-52); AST 68 U/L (14-36); African American GFR (CKD) >90 (>60 ml/min/1.73 sqM); Alkaline Phosphatase 97 U/L (38-126); Amylase 36 U/L (30-110); Anion Gap 10 mmol/L; Blood Urea Nitrogen 9 mg/dL (7-17); Calcium 9.4 mg/dL (8.4-10.2); Carbon Dioxide 24 mmol/L (22-30); Chloride 105 mmol/L (98-107); Glucose 92 mg/dL (74-99); Lipase 65 U/L (23-300); Potassium 3.8 mmol/L (3.5-5.1); Sodium 139 mmol/L (137-145); Total Bilirubin 0.4 mg/dL (0.2-1.3); Total Protein 7.6 g/dL (6.3-8.2)
[2019-04-07 05:07] VITALS: BP 132/75; PULSE 72; RESP 17; TEMP 98.3
== END 2019-04-07 04:02 | disposition home or self-care (01) ==
LOC: EC 00:40
DX: R10.11 Right upper quadrant pain (principal); G89.29 Other chronic pain; R19.7 Diarrhea, unspecified; J45.909 Unspecified asthma, uncomplicated; E11.43 Type 2 diabetes mellitus with diabetic autonomic (poly)neuropathy; K31.84 Gastroparesis; K21.9 Gastro-esophageal reflux disease without esophagitis; E07.9 Disorder of thyroid, unspecified; F32.9 Major depressive disorder, single episode, unspecified; F41.9 Anxiety disorder, unspecified; Z88.0 Allergy status to penicillin; Z88.5 Allergy status to narcotic agent; Z88.6 Allergy status to analgesic agent; Z88.8 Allergy status to other drugs, medicaments and biological substances; Z91.013 Allergy to seafood; Z91.018 Allergy to other foods; Z91.040 Latex allergy status; Z79.3 Long term (current) use of hormonal contraceptives; Z79.51 Long term (current) use of inhaled steroids; Z79.84 Long term (current) use of oral hypoglycemic drugs; Z79.890 Hormone replacement therapy; Z79.899 Other long term (current) drug therapy; Z87.19 Personal history of other diseases of the digestive system; Z90.49 Acquired absence of other specified parts of digestive tract; Z83.79 Family history of other diseases of the digestive system
CPT/HCPCS: 36415; 80053; 82150; 83690; 85025; 96360; 99284

== ENCOUNTER 2019-04-08 20:05 | Emergency (ER) | payer OTHER ==
[2019-04-08 20:14] VITALS: RESP 18; TEMP 99.4
[2019-04-08] MEDS ORDERED: SODIUM CHLORIDE 0.9% 1,000 ML IV STA (20:40)
[2019-04-08] MEDS ORDERED: MORPHINE SULFATE 4 MG/ML SYRINGE IV STA (20:40)
[2019-04-08 21:32] LABS: Basophils % (A) 0 %; Eosinophils # (A) 0.5 k/uL (0-0.7); Eosinophils % (A) 4 %; HCT 39.1 % (34.0-46.0); HGB 12.1 gm/dL (11.4-16.0); Lymphocytes # (A) 3.4 k/uL (1.0-4.8); Lymphocytes % (A) 25 %; MCH 26.3 pg (25.0-35.0); MCHC 30.9 g/dL (31.0-37.0); MCV 85.2 fL (80.0-100.0); Mean Platelet Volume 6.9; Monocytes # (A) 0.5 k/uL (0-1.0); Monocytes % (A) 4 %; Neutrophils # (A) 9.1 k/uL (1.3-7.7); Neutrophils % (A) 66 %; Platelet Count 382 k/uL (150-450); RBC 4.59 m/uL (3.80-5.40); RDW 14.2 % (11.5-15.5); WBC 13.9 k/uL (3.8-10.6)
[2019-04-08 21:38] LABS: Appearance,Urine Turbid (Clear); Bacteria,Urine Rare /hpf; Bilirubin,Urine Negative (Negative); Blood,Urine Negative (Negative); Color,Urine Yellow; Glucose,Urine (UA) Negative (Negative); Ketones,Urine Negative (Negative); Leukocyte Esterase,Urine Moderate (Negative); Mucus,Urine Few /hpf; Nitrite,Urine Negative (Negative); PH, Urine 5.5 (5.0-8.0); Protein,Urine 1+ (Negative); Specific Gravity,Urine 1.024 (1.001-1.035); Squamous Epithelial Cell,Urine 94 /hpf (0-4); Urobilinogen,Urine <2.0 mg/dL (<2.0); WBC,Urine 13 /hpf (0-5)
--- NOTE | 2019-04-08 21:38 | XR ---
KUB HISTORY: Abdominal pain Frontal KUB and 2 images correlated to prior dated 12/17/2018 Surgical clips are present in the right upper quadrant as on prior exam. There is a mild spinal curva ture. Lung bases are clear. There is no evident pneumoperitoneum or bowel obstruction. Bone mineraliz ation is maintained. No pathologic calcification. Possible vascular calcifications within the pelvis. IMPRESSION: Nonobstructive bowel gas pattern. Follow-up as indicated.
[2019-04-08 21:41] LABS: ALT 87 U/L (9-52); AST 114 U/L (14-36); African American GFR (CKD) >90 (>60 ml/min/1.73 sqM); Albumin 4.2 g/dL (3.5-5.0); Alkaline Phosphatase 106 U/L (38-126); Amylase 46 U/L (30-110); Anion Gap 12 mmol/L; Blood Urea Nitrogen 8 mg/dL (7-17); Calcium 9.8 mg/dL (8.4-10.2); Carbon Dioxide 20 mmol/L (22-30); Chloride 106 mmol/L (98-107); Glucose 97 mg/dL (74-99); Potassium 4.4 mmol/L (3.5-5.1); Sodium 138 mmol/L (137-145); Total Bilirubin 0.3 mg/dL (0.2-1.3); Total Protein 7.9 g/dL (6.3-8.2)
--- NOTE | 2019-04-08 22:04 | ED ---
Abdominal Pain HPI - General Chief Complaint: Abdominal Pain Stated Complaint: Abd pain, rectal bleeding Time Seen by Provider: 04/08/19 20:14 Source: patient Mode of arrival: EMS - History of Present Illness Initial Comments: 23-year-old female patient well known to our department with past medical history significant for cirrhosis of the liver caused by medications, chronic ab dominal pain, chronic vomiting, presents to the emergency department today for evaluation of abdominal pain, vomiting, and diarrhea. Patient states she's had symptoms since Saturday. Patient states the symptoms have been constant. States that eating makes both pain and vomiting worse. States that today she had 3 episodes of bloody diarrhea. States was bright red in color. She denies any dizziness or weakness. Denies any fever or chills. Denies any recent travel or sick contacts. Patient states her symptoms are consistent with her usual pain and vomiting patterns. States she did take Zofran at home which did not help. She denies any chance of . States she hasn't been able to follow-up with her geographic information system analyst in quite some time due to transportation issues. Last colonoscopy was 2 years ago. Denies any known hemorrhoids. Patient denies any recent rash, shortness breath, chest pain, back pain, numbness, tingling, hematuria, dysuria, urinary urgency, urinary frequency, headache, visual changes, or any other complaints. - Related Data Home Medications Medication Instructions Recorded Confirmed [place] Carbonate 900 mg PO HS 08/27/15 01/19/19 Omeprazole [PriLOSEC] 20 mg PO BID 08/27/15 01/19/19 Levothyroxine Sodium [Synthroid] 125 mcg PO QAM 01/06/17 01/19/19 Ergocalciferol [Vitamin D2 50,000 unit PO BELL 02/13/17 01/19/19 (DRISDOL)] Montelukast [Singulair] 10 mg PO HS 05/21/17 01/19/19 Potassium Chloride [K-Tab ER] 10 meq PO DAILY 09/14/17 01/19/19 Famotidine [Pepcid] 20 mg PO BID 02/04/18 01/19/19 Norgestimate-Ethinyl Estradiol 1 tab PO DAILY 02/04/18 01/19/19 [Sprintec 28 Day Tablet] Pioglitazone [Actos] 15 mg PO DAILY 03/20/18 01/19/19 DULoxetine HCL [Cymbalta] 60 mg PO BID 01/19/19 01/19/19 EPINEPHrine (Auto Inject) [Epipen] 0.3 mg IM DAILY PRN 01/19/19 01/19/19 Flunisolide [Aerospan] 2 puff INHALATION RT-BID 01/19/19 01/19/19 Phentermine HCl [Adipex-P] 37.5 mg PO DAILY 01/19/19 01/19/19 Prochlorperazine [Compazine] 10 mg PO Q4H 01/19/19 01/19/19 cloNIDine HCL [Catapres] 0.2 mg PO HS 01/19/19 01/19/19 Allergies Allergy/AdvReac Type Severity Reaction Status Date / Time fentanyl Allergy Rash/Hives Verified 04/08/19 20:19 grape Allergy Anaphylaxis Verified 04/08/19 20:19 latex Allergy Rash/Hives Verified 04/08/19 20:19 metoclopramide [From Reglan] Allergy Unknown Verified 04/08/19 20:19 Penicillins Allergy Anaphylaxis Verified 04/08/19 20:19 ibuprofen [From Motrin] AdvReac GI Bleed Verified 04/08/19 20:19 prazosin AdvReac Nausea & Verified 04/08/19 20:19 Vomiting Seafood Allergy Anaphylaxis Uncoded 03/04/19 23:27 Review of Systems ROS Statement: Those systems with pertinent positive or pertinent negative responses have been documented in the HPI. ROS Other: All systems not noted in ROS Statement are negative. Past Medical History Past Medical History: Asthma, Chest Pain / Angina, Diabetes Mellitus, Fibromyalgia, GERD/Reflux, Liver Disease, Thyroid Disorder Additional Past Medical History / Comment(s): Cirrhosis of the liver. Esophagalitis. IBS. PART OF STOMACH NON-FUNCTIONING. BLOOD IN STOOL, VOMITING DAILY(vomited blood 1 week ago)., "fast heart beat", gasteoporesis, History of Any Multi-Drug Resistant Organisms: None Reported Past Surgical History: Appendectomy, Cholecystectomy, Tonsillectomy Additional Past Surgical History / Comment(s): NASAL Septum repair. COLONOSCO PY., Past Anesthesia/Blood Transfusion Reactions: Motion Sickness Past Psychological History: Anxiety, Depression, PTSD Smoking Status: Never smoker Past Alcohol Use History: None Reported Past Drug Use History: None Reported - Past Family History Mother Family Medical History: No Reported History Father Family Medical History: Liver Disease Additional Family Medical History / Comment(s): cirrhosis, esophagus disease General Exam General appearance: alert, in no apparent distress, other (This is a well- developed, well-nourished adult female patient in no acute distress. Vital signs upon presentation are temperature 99.4F, pulse 118, respirations 18, blood pressure 131/85, pulse ox 96% on room air.) Eye exam: Present: normal appearance, PERRL, EOMI. Absent: scleral icterus, conjunctival injection, periorbital swelling ENT exam: Present: normal exam, normal oropharynx, mucous membranes moist Respiratory exam: Present: normal lung sounds bilaterally. Absent: respiratory distress, wheezes, rales, rhonchi, stridor Cardiovascular Exam: Present: regular rate, normal rhythm, normal heart sounds. Absent: systolic murmur, diastolic murmur, rubs, gallop, clicks GI/Abdominal exam: Present: soft, tenderness (Tenderness over the midepigastric region), normal bowel sounds. Absent: distended, guarding, rebound, rigid Neurological exam: Present: alert, oriented X3, CN II-XII intact Psychiatric exam: Present: normal affect, normal mood Skin exam: Present: warm, dry, intact, normal color. Absent: rash Course Vital Signs 04/08/19 04/08/19 20:13 22:27 Temperature 99.4 F Pulse Rate 118 H 100 Respiratory 18 18 Rate Blood Pressure 131/85 122/85 O2 Sat by Pulse 96 98 Oximetry Medical Decision Making - Medical Decision Making 23-year-old female patient presents the emergency department today for evaluation of abdominal pain and vomiting. Physical examination reveals some midepigastric tenderness. Labs reviewed and were unremarkable. KUB x-ray was obtained and showed no acute abnormalities. Patient did report bloody stools, rectal exam was performed, there is no evidence for hemorrhoids. Hemoccult testing was negative. I did discuss findings and results with the patient. Should be discharged at this time to follow-up with her primary care physician as well as her geographic information system analyst. She is instructed to discuss colonoscopy. She is instructed to continue her home medications. Return parameters were discussed in detail. She verbalizes understanding and agrees with this plan. - Lab Data Result diagrams: 04/08/19 21:10 04/08/19 21:10 Lab Results 04/08/19 04/08/19 04/08/19 Range/Units 21:10 21:10 21:10 WBC 13.9 H (3.8-10.6) k/uL RBC 4.59 (3.80-5.40) m/uL Hgb 12.1 (11.4-16.0) gm/dL Hct 39.1 (34.0-46.0) % MCV 85.2 (80.0-100.0) fL MCH 26.3 (25.0-35.0) pg MCHC 30.9 L (31.0-37.0) g/dL RDW 14.2 (11.5-15.5) % Plt Count 382 (150-450) k/uL Neutrophils % 66 % Lymphocytes % 25 % Monocytes % 4 % Eosinophils % 4 % Basophils % 0 % Neutrophils # 9.1 H (1.3-7.7) k/uL Lymphocytes # 3.4 (1.0-4.8) k/uL Monocytes # 0.5 (0-1.0) k/uL Eosinophils # 0.5 (0-0.7) k/uL Basophils # 0.0 (0-0.2) k/uL Sodium 138 (137-145) mmol/L Potassium 4.4 (3.5-5.1) mmol/L Chloride 106 (98-107) mmol/L Carbon Dioxide 20 L (22-30) mmol/L Anion Gap 12 mmol/L BUN 8 (7-17) mg/dL Creatinine 0.65 (0.52-1.04) mg/dL Est GFR (CKD-EPI)AfAm >90 (>60 ml/min/1.73 sqM) Est GFR (CKD-EPI)NonAf >90 (>60 ml/min/1.73 sqM) Glucose 97 (74-99) mg/dL Plasma Lactic Acid Tree 1.0 (0.7-2.0) mmol/L Calcium 9.8 (8.4-10.2) mg/dL Total Bilirubin 0.3 (0.2-1.3) mg/dL AST 114 H (14-36) U/L ALT 87 H (9-52) U/L Alkaline Phosphatase 106 (38-126) U/L Total Protein 7.9 (6.3-8.2) g/dL Albumin 4.2 (3.5-5.0) g/dL Amylase 46 (30-110) U/L Lipase 123 (23-300) U/L Urine Color Urine Appearance (Clear) Urine pH (5.0-8.0) Ur Specific [place] (1.001-1.035) Urine Protein (Negative) Urine Glucose (UA) (Negative) Urine Ketones (Negative) Urine Blood (Negative) Urine Nitrite (Negative) Urine Bilirubin (Negative) Urine Urobilinogen (<2.0) mg/dL Ur Leukocyte Esterase (Negative) Urine WBC (0-5) /hpf Ur Squamous Epith Cells (0-4) /hpf Urine Bacteria (None) /hpf Urine Mucus (None) /hpf Stool Occult Blood (Negative) 04/08/19 04/08/19 Range/Units 21:10 21:10 WBC (3.8-10.6) k/uL RBC (3.80-5.40) m/uL Hgb (11.4-16.0) gm/dL Hct (34.0-46.0) % MCV (80.0-100.0) fL MCH (25.0-35.0) pg MCHC (31.0-37.0) g/dL RDW (11.5-15.5) % Plt Count (150-450) k/uL Neutrophils % % Lymphocytes % % Monocytes % % Eosinophils % % Basophils % % Neutrophils # (1.3-7.7) k/uL Lymphocytes # (1.0-4.8) k/uL Monocytes # (0-1.0) k/uL Eosinophils # (0-0.7) k/uL Basophils # (0-0.2) k/uL Sodium (137-145) mmol/L Potassium (3.5-5.1) mmol/L Chloride (98-107) mmol/L Carbon Dioxide (22-30) mmol/L Anion Gap mmol/L BUN (7-17) mg/dL Creatinine (0.52-1.04) mg/dL Est GFR (CKD-EPI)AfAm (>60 ml/min/1.73 sqM) Est GFR (CKD-EPI)NonAf (>60 ml/min/1.73 sqM) Glucose (74-99) mg/dL Plasma Lactic Acid Tree (0.7-2.0) mmol/L Calcium (8.4-10.2) mg/dL Total Bilirubin (0.2-1.3) mg/dL AST (14-36) U/L ALT (9-52) U/L Alkaline Phosphatase (38-126) U/L Total Protein (6.3-8.2) g/dL Albumin (3.5-5.0) g/dL Amylase (30-110) U/L Lipase (23-300) U/L Urine Color Yellow Urine Appearance Turbid H (Clear) Urine pH 5.5 (5.0-8.0) Ur Specific [place] 1.024 (1.001-1.035) Urine Protein 1+ H (Negative) Urine Glucose (UA) Negative (Negative) Urine Ketones Negative (Negative) Urine Blood Negative (Negative) Urine Nitrite Negative (Negative) Urine Bilirubin Negative (Negative) Urine Urobilinogen <2.0 (<2.0) mg/dL Ur Leukocyte Esterase Moderate H (Negative) Urine WBC 13 H (0-5) /hpf Ur Squamous Epith Cells 94 H (0-4) /hpf Urine Bacteria Rare H (None) /hpf Urine Mucus Few H (None) /hpf Stool Occult Blood Negative (Negative) - Radiology Data Radiology results: report reviewed, image reviewed To images of the abdomen are obtained report was reviewed in its entirety. Impression by Dr. Schmitt shows nonobstructive bowel gas pattern. Disposition Clinical Impression: Abdominal pain Disposition: HOME SELF-CARE Condition: Good Instructions (If sedation given, give patient instructions): Abdominal Pain (ED) Additional Instructions: Take home medications as needed for symptom relief. Follow-up with her primary care physician or geographic information system analyst for recheck as soon as possible. Return to the emergency department immediately for any new, worsening, or concerning symptoms. Is patient prescribed a controlled substance at d/c from ED?: No Referrals: Marysol Rose DO [Primary Care Provider] - 1-2 days Time of Disposition: 22:04
[2019-04-08 22:29] VITALS: BP 122/85; PULSE 100
== END 2019-04-08 22:27 | disposition home or self-care (01) ==
LOC: EC 20:05
DX: R10.13 Epigastric pain (principal); R11.10 Vomiting, unspecified; K92.1 Melena; R19.7 Diarrhea, unspecified; J45.909 Unspecified asthma, uncomplicated; I20.9 Angina pectoris, unspecified; E11.9 Type 2 diabetes mellitus without complications; M79.7 Fibromyalgia; K21.9 Gastro-esophageal reflux disease without esophagitis; E07.9 Disorder of thyroid, unspecified; K58.9 Irritable bowel syndrome, unspecified; F41.9 Anxiety disorder, unspecified; F32.9 Major depressive disorder, single episode, unspecified; Z90.49 Acquired absence of other specified parts of digestive tract; Z98.890 Other specified postprocedural states; Z87.19 Personal history of other diseases of the digestive system; Z79.3 Long term (current) use of hormonal contraceptives; Z79.51 Long term (current) use of inhaled steroids; Z79.84 Long term (current) use of oral hypoglycemic drugs; Z79.890 Hormone replacement therapy; Z79.899 Other long term (current) drug therapy; Z88.0 Allergy status to penicillin; Z88.5 Allergy status to narcotic agent; Z88.6 Allergy status to analgesic agent; Z88.8 Allergy status to other drugs, medicaments and biological substances; Z91.013 Allergy to seafood; Z91.018 Allergy to other foods; Z91.040 Latex allergy status
CPT/HCPCS: 36415; 80053; 82150; 83605; 83690; 85025; 82272; 81001; 87086; 74018; 99284; 96374; 96361; J2270

== ENCOUNTER → 2019-04-20 | Outpatient (CLI) | payer OTHER ==
[2019-04-20 13:48] VITALS: BP 126/81; PULSE 132; TEMP 98.7; BMI 47.2
--- NOTE | 2019-04-20 15:00 | P.HPBAR ---
Bariatric H&P - History & Physicial H&P Date: 04/20/19 History & Physicial: Visit/CC: Bariatric Initial consultation Patient initial contact: Initial weight: 113.307 kg Initial weight in pounds: 249.80 Height: 5 ft 1 in Initial BMI: 47.2 Last weight: Current weight: 113.307 kg Current weight in pounds: 249.80 Current BMI: 47.2 [place] body weight (based on NIH guidelines): 47.627 kg Excess body weight loss: 0.0% The patient is a 23 year-old F who presents for Bariatric Assessment. Patient presents today for presurgical consultation. She has had lifetime problems obesity. Her BMI is 47. Past Medical History Past Medical History: Asthma, Chest Pain / Angina, Fibromyalgia, GERD/Reflux, Liver Disease, Thyroid Disorder Additional Past Medical History / Comment(s): Cirrhosis of the liver and hepatitis C (pt states these are partly due to her genetics and partly due to mental health medications she has been taking since age 4), Esophagitis. IBS. PART OF STOMACH NON-FUNCTIONING. BLOOD IN STOOL, 04/08 pt reports VOMITING DAILY due to abdominal pain and migraines (vomited blood 1 week ago)., "fast heart beat", gastoporesis, hypothyroidism History of Any Multi-Drug Resistant Organisms: None Reported Past Surgical History: Appendectomy, Cholecystectomy, Tonsillectomy Additional Past Surgical History / Comment(s): NASAL Septum repair. COLONOSCOPY., Past Anesthesia/Blood Transfusion Reactions: Motion Sickness Past Psychological History: Anxiety, Depression, PTSD Additional Psychological History / Comment(s): 04/20/19: Takes [place] and Cymbalta daily Smoking Status: Never smoker Past Alcohol Use History: None Reported Past Drug Use History: None Reported - Past Family History Mother Family Medical History: No Reported History Father Family Medical History: Liver Disease Additional Family Medical History / Comment(s): at age 61 from COPD. ALso had cirrhosis,hepatitis C, pancreatitis, heart attacks (multiple) and esophagus disease Surgical - Exam Vital Signs Temp Pulse BP 98.7 F 132 H 126/81 04/20/19 13:20 04/20/19 13:20 04/20/19 13:20 - General well developed, well nourished, no distress, moderate distress - Eyes PERRL - ENT normal pinna - Neck no masses - Respiratory normal expansion - Cardiovascular Rhythm: regular - Abdomen Abdomen: soft, non tender Bariatric Assessment & Plan Plan: Morbid obesity with severe comorbidities. Patient will be scheduled for EGD. She'll follow-up in the bariatric clinic after this has been performed. Bariatric Checklist Checklist: Plan: Checklist: EGD: 1. Hiatal hernia: 2. H. Pylori: HgbA1c: Vitamin D: Smoking: Never smoker Primary care physician referral: Marysol Rose Do Psychiatry clearance: Cardiology clearance: Sleep study: Diet journal: VTE risk score: VTE risk level: Rehab needs at discharge:
== END | disposition home or self-care (01) ==
LOC: BARWHC3 12:59
PROVIDERS: ATTEND Surgery
DX: E66.01 Morbid (severe) obesity due to excess calories (principal); Z68.42 Body mass index [BMI] 45.0-49.9, adult
CPT/HCPCS: 99211

== ENCOUNTER 2019-05-25 20:24 | Emergency (ER) | payer OTHER ==
[2019-05-25] MEDS ORDERED: SODIUM CHLORIDE 0.9% 1,000 ML IV STA (21:22)
[2019-05-25 22:43] LABS: Appearance,Urine Clear (Clear); Bilirubin,Urine Negative (Negative); Blood,Urine Negative (Negative); Color,Urine Yellow; Glucose,Urine (UA) Negative (Negative); Ketones,Urine Negative (Negative); Leukocyte Esterase,Urine Negative (Negative); Nitrite,Urine Negative (Negative); Protein,Urine Negative (Negative); Specific Gravity,Urine 1.015 (1.001-1.035); Urobilinogen,Urine <2.0 mg/dL (<2.0)
[2019-05-25 22:44] LABS: Basophils % (A) 0 %; Eosinophils # (A) 0.4 k/uL (0-0.7); Eosinophils % (A) 4 %; HCT 34.9 % (34.0-46.0); HGB 10.9 gm/dL (11.4-16.0); Lymphocytes # (A) 3.9 k/uL (1.0-4.8); Lymphocytes % (A) 33 %; MCH 26.6 pg (25.0-35.0); MCHC 31.3 g/dL (31.0-37.0); Mean Platelet Volume 6.7; Monocytes # (A) 0.5 k/uL (0-1.0); Monocytes % (A) 4 %; Neutrophils # (A) 6.7 k/uL (1.3-7.7); Neutrophils % (A) 57 %; Platelet Count 336 k/uL (150-450); RBC 4.11 m/uL (3.80-5.40); RDW 14.7 % (11.5-15.5); WBC 11.7 k/uL (3.8-10.6)
[2019-05-25 22:50] LABS: ALT 55 U/L (9-52); AST 54 U/L (14-36); African American GFR (CKD) >90 (>60 ml/min/1.73 sqM); Albumin 3.8 g/dL (3.5-5.0); Alkaline Phosphatase 84 U/L (38-126); Anion Gap 7 mmol/L; Blood Urea Nitrogen 9 mg/dL (7-17); Calcium 9.4 mg/dL (8.4-10.2); Carbon Dioxide 29 mmol/L (22-30); Chloride 105 mmol/L (98-107); Glucose 88 mg/dL (74-99); Sodium 141 mmol/L (137-145); Total Bilirubin 0.2 mg/dL (0.2-1.3); Total Protein 7.2 g/dL (6.3-8.2)
--- NOTE | 2019-05-25 22:54 | ED ---
Abdominal Pain HPI - General Chief Complaint: Abdominal Pain Stated Complaint: Abd Pain Time Seen by Provider: 05/25/19 21:22 Source: patient Mode of arrival: ambulatory Limitations: no limitations - History of Present Illness Initial Comments: As he is a 23-year-old female with extensive past medical history most significant for cirrhosis likely secondary to psychiatric medications prescribed as a child. Patient is followed with gastroenterology for a number of years. Patient presents the ER today complaining that her liver is hurting. Patient brown s a history of similar complaints. Patient denies any fevers, chills, nausea or vomiting. She reports normal bowel movement this morning. - Related Data Home Medications Medication Instructions Recorded Confirmed [place] Carbonate 900 mg PO HS 08/27/15 05/25/19 Omeprazole [PriLOSEC] 20 mg PO BID 08/27/15 05/25/19 Levothyroxine Sodium [Synthroid] 125 mcg PO QAM 01/06/17 05/25/19 Ergocalciferol [Vitamin D2 50,000 unit PO BELL 02/13/17 05/25/19 (DRISDOL)] Montelukast [Singulair] 10 mg PO HS 05/21/17 05/25/19 Potassium Chloride [K-Tab ER] 10 meq PO DAILY 09/14/17 05/25/19 Famotidine [Pepcid] 20 mg PO BID 02/04/18 05/25/19 Norgestimate-Ethinyl Estradiol 1 tab PO DAILY 02/04/18 05/25/19 [Sprintec 28 Day Tablet] Pioglitazone [Actos] 15 mg PO DAILY 03/20/18 05/25/19 DULoxetine HCL [Cymbalta] 60 mg PO BID 01/19/19 05/25/19 EPINEPHrine (Auto Inject) [Epipen] 0.3 mg IM DAILY PRN 01/19/19 05/25/19 Flunisolide [Aerospan] 2 puff INHALATION RT-BID 01/19/19 05/25/19 Phentermine HCl [Adipex-P] 37.5 mg PO DAILY 01/19/19 05/25/19 Prochlorperazine [Compazine] 10 mg PO Q4H PRN 01/19/19 05/25/19 cloNIDine HCL [Catapres] 0.2 mg PO HS 01/19/19 05/25/19 Allergies Allergy/AdvReac Type Severity Reaction Status Date / Time fentanyl Allergy Rash/Hives Verified 05/25/19 21:22 grape Allergy Anaphylaxis Verified 05/25/19 21:22 latex Allergy Rash/Hives Verified 05/25/19 21:22 metoclopramide [From Reglan] Allergy Unknown Verified 05/25/19 21:22 Penicillins Allergy Anaphylaxis Verified 05/25/19 21:22 ibuprofen [From Motrin] AdvReac GI Bleed Verified 05/25/19 21:22 prazosin AdvReac Nausea & Verified 05/25/19 21:22 Vomiting Seafood Allergy Anaphylaxis Uncoded 04/20/19 13:29 Review of Systems ROS Statement: Those systems with pertinent positive or pertinent negative responses have been documented in the HPI. ROS Other: All systems not noted in ROS Statement are negative. Past Medical History Past Medical History: Asthma, Chest Pain / Angina, Fibromyalgia, GERD/Reflux, Liver Disease, Thyroid Disorder Additional Past Medical History / Comment(s): Cirrhosis of the liver and hepatitis C (pt states these are partly due to her genetics and partly due to mental health medications she has been taking since age 4), Esophagitis. IBS. PART OF STOMACH NON-FUNCTIONING. BLOOD IN STOOL, 04/08 pt reports VOMITING DAILY due to abdominal pain and migraines (vomited blood 1 week ago)., "fast heart beat", gastoporesis, hypothyroidism History of Any Multi-Drug Resistant Organisms: None Reported Past Surgical History: Appendectomy, Cholecystectomy, Tonsillectomy Additional Past Surgical History / Comment(s): NASAL Septum repair. COLONOSCOPY., Past Anesthesia/Blood Transfusion Reactions: Motion Sickness Past Psychological History: Anxiety, Depression, PTSD Smoking Status: Never smoker Past Alcohol Use History: None Reported Past Drug Use History: None Reported - Past Family History Mother Family Medical History: No Reported History Father Family Medical History: Liver Disease Additional Family Medical History / Comment(s): at age 61 from COPD. ALso had cirrhosis,hepatitis C, pancreatitis, heart attacks (multiple) and esophagus disease General Exam - General Exam Comments Initial Comments: Physical Exam GENERAL: Patient is well-developed and well-nourished. Patient is nontoxic and well- hydrated and is in no distress. HENT: Normocephalic, Atraumatic. EYES: PERRL, EOMI PULMONARY: Unlabored respirations. No audible rales rhonchi or wheezing was noted. CARDIOVASCULAR: There is a regular rate and rhythm without any murmurs gallops or rubs. ABDOMEN: Soft and nontender with normal bowel sounds. SKIN: Skin is clear with no lesions or rashes and otherwise unremarkable. : Deferred NEUROLOGIC: Patient is alert and oriented x3. Moving all extremities spontaneously MUSCULOSKELETAL: Normal extremities with adequate strength and full range of motion. No lower extremity swelling or edema. No calf tenderness. PSYCHIATRIC: Normal psychiatric evaluation. Limitations: no limitations Course Vital Signs 05/25/19 20:49 Temperature 98.3 F Pulse Rate 111 H Respiratory 20 Rate Blood Pressure 128/88 O2 Sat by Pulse 98 Oximetry Medical Decision Making - Medical Decision Making The patient was seen and evaluated history is obtained from patient This 23-year-old female with a history of chronic abdominal pain, likely cirrhosis secondary to previous medications, patient has a history of frequent ER visits for what she describes as liver pain. I advised the patient that she will not receive any narcotic pain medications for this. Labs were obtained and, transaminitis improved from previous. Labs otherwise unremarkable urinalysis with no signs of hematuria. Physical exam was unremarkable. Patient be treated with Toradol. Patient is agreeable to this plan. All questions pertaining care were answered return parameters discussed patient discharged ho me in stable condition. - Lab Data Result diagrams: 05/25/19 22:25 05/25/19 22:25 Lab Results 05/25/19 05/25/19 05/25/19 Range/Units 22:25 22:25 22:25 WBC 11.7 H (3.8-10.6) k/uL RBC 4.11 (3.80-5.40) m/uL Hgb 10.9 L (11.4-16.0) gm/dL Hct 34.9 (34.0-46.0) % MCV 85.0 (80.0-100.0) fL MCH 26.6 (25.0-35.0) pg MCHC 31.3 (31.0-37.0) g/dL RDW 14.7 (11.5-15.5) % Plt Count 336 (150-450) k/uL Neutrophils % 57 % Lymphocytes % 33 % Monocytes % 4 % Eosinophils % 4 % Basophils % 0 % Neutrophils # 6.7 (1.3-7.7) k/uL Lymphocytes # 3.9 (1.0-4.8) k/uL Monocytes # 0.5 (0-1.0) k/uL Eosinophils # 0.4 (0-0.7) k/uL Basophils # 0.0 (0-0.2) k/uL Sodium 141 (137-145) mmol/L Potassium 4.0 (3.5-5.1) mmol/L Chloride 105 (98-107) mmol/L Carbon Dioxide 29 (22-30) mmol/L Anion Gap 7 mmol/L BUN 9 (7-17) mg/dL Creatinine 0.73 (0.52-1.04) mg/dL Est GFR (CKD-EPI)AfAm >90 (>60 ml/min/1.73 sqM) Est GFR (CKD-EPI)NonAf >90 (>60 ml/min/1.73 sqM) Glucose 88 (74-99) mg/dL Calcium 9.4 (8.4-10.2) mg/dL Total Bilirubin 0.2 (0.2-1.3) mg/dL AST 54 H (14-36) U/L ALT 55 H (9-52) U/L Alkaline Phosphatase 84 (38-126) U/L Total Protein 7.2 (6.3-8.2) g/dL Albumin 3.8 (3.5-5.0) g/dL Lipase 109 (23-300) U/L Urine Color Yellow Urine Appearance Clear (Clear) Urine pH 6.0 (5.0-8.0) Ur Specific [place] 1.015 (1.001-1.035) Urine Protein Negative (Negative) Urine Glucose (UA) Negative (Negative) Urine Ketones Negative (Negative) Urine Blood Negative (Negative) Urine Nitrite Negative (Negative) Urine Bilirubin Negative (Negative) Urine Urobilinogen <2.0 (<2.0) mg/dL Ur Leukocyte Esterase Negative (Negative) Disposition Clinical Impression: Chronic abdominal pain Disposition: HOME SELF-CARE Condition: Stable Instructions (If sedation given, give patient instructions): Abdominal Pain (E D) Is patient prescribed a controlled substance at d/c from ED?: No Referrals: Marysol Rose DO [Primary Care Provider] - 1-2 days
[2019-05-25] MEDS ORDERED: KETOROLAC 30 MG/ML 1 ML VIAL IVP ONE (22:59)
[2019-05-25 23:41] VITALS: BP 117/76; PULSE 91; RESP 18; TEMP 98
--- NOTE | 2019-05-26 00:05 | XR ---
EXAM: XR Abdomen, 1 View CLINICAL HISTORY: ITS.REASON XR Reason: abdominal pain TECHNIQUE: Frontal supine view of the abdomen/pelvis. COMPARISON: 04/08/19. FINDINGS: Gastrointestinal tract: Nonspecific bowel gas pattern. No dilatation. Bones/joints: Stable. Soft tissues: Surgical clips in the right upper abdomen. IMPRESSION: Nonspecific bowel gas pattern.
== END 2019-05-25 23:40 | disposition home or self-care (01) ==
LOC: EC 20:24
DX: R10.9 Unspecified abdominal pain (principal); G89.29 Other chronic pain; R74.0 Nonspecific elevation of levels of transaminase and lactic acid dehydrogenase [LDH]; K74.60 Unspecified cirrhosis of liver; K76.9 Liver disease, unspecified; K58.9 Irritable bowel syndrome, unspecified; B19.20 Unspecified viral hepatitis C without hepatic coma; J45.909 Unspecified asthma, uncomplicated; I20.9 Angina pectoris, unspecified; M79.7 Fibromyalgia; K21.9 Gastro-esophageal reflux disease without esophagitis; E03.9 Hypothyroidism, unspecified; F41.9 Anxiety disorder, unspecified; F32.9 Major depressive disorder, single episode, unspecified; Z79.3 Long term (current) use of hormonal contraceptives; Z79.890 Hormone replacement therapy; Z79.899 Other long term (current) drug therapy; Z88.0 Allergy status to penicillin; Z88.6 Allergy status to analgesic agent; Z88.8 Allergy status to other drugs, medicaments and biological substances; Z88.5 Allergy status to narcotic agent; Z91.018 Allergy to other foods; Z91.040 Latex allergy status; Z91.013 Allergy to seafood; Z98.890 Other specified postprocedural states; Z90.49 Acquired absence of other specified parts of digestive tract; Z87.19 Personal history of other diseases of the digestive system
CPT/HCPCS: 36415; 80053; 83690; 85025; 81003; 74018; 99284; 96374; 96361; J1885

== ENCOUNTER 2019-05-28 06:02 | Day surgery (SDC) | payer OTHER ==
[2019-05-26 09:54] VITALS: BMI 46.6
[2019-05-28 07:22] VITALS: TEMP 98.4
[2019-05-28] MEDS ORDERED: LACTATED RINGERS 1,000 ML IV ONE (07:35)
[2019-05-28 07:37] LABS: Glucose,Whole Blood 85 mg/dL (75-99)
[2019-05-28] MEDS ORDERED: PROPOFOL 10 MG/ML 20 ML VIAL IV ONE (07:42)
[2019-05-28] MEDS ORDERED: LIDOCAINE 1% INJ 10MG/ML (20 ML MDV) ONE (07:42)
[2019-05-28 08:07] VITALS: RESP 16
--- NOTE | 2019-05-28 08:08 | P.GSHP ---
History of Present Illness H&P Date: 05/28/19 Chief Complaint: GERD, obesity This is a 19-year-old female who has issues with GERD. Patient morbid obese. Her BMI 47. Past Medical History Past Medical History: Asthma, Chest Pain / Angina, Fibromyalgia, GERD/Reflux, Liver Disease, Thyroid Disorder Additional Past Medical History / Comment(s): Cirrhosis of the liver and hepatitis C (pt states these are partly due to her genetics and partly due to mental health medications she has been taking since age 4), Esophagitis. IBS. PART OF STOMACH NON-FUNCTIONING. OCC. BLOOD IN STOOL., HX STOMACH ULCERS., "FAST HEART BEAR", gastoporesis, hypothyroidism, STATES SHE TAKES ACTOS FOR HER LIVER. History of Any Multi-Drug Resistant Organisms: None Reported Past Surgical History: Appendectomy, Cholecystectomy, Tonsillectomy Additional Past Surgical History / Comment(s): NASAL Septum repair. COLONOSCOPY., Past Anesthesia/Blood Transfusion Reactions: No Reported Reaction, Motion Sickness Past Psychological History: Anxiety, Bipolar, Depression, PTSD, Schizophrenia Additional Psychological History / Comment(s): . Smoking Status: Never smoker Past Alcohol Use History: None Reported Past Drug Use History: None Reported - Past Family History Mother Family Medical History: No Reported History Father Family Medical History: Liver Disease Additional Family Medical History / Comment(s): at age 61 from COPD. ALso had cirrhosis,hepatitis C, pancreatitis, heart attacks (multiple) and esophagus disease Medications and Allergies Home Medications Medication Instructions Recorded Confirmed Type [place] Carbonate 900 mg PO HS 08/27/15 05/28/19 History Omeprazole [PriLOSEC] 20 mg PO BID 08/27/15 05/28/19 History Levothyroxine Sodium [Synthroid] 125 mcg PO QAM 01/06/17 05/28/19 History Ergocalciferol [Vitamin D2 50,000 unit PO BELL 02/13/17 05/28/19 History (DRISDOL)] Montelukast [Singulair] 10 mg PO HS 05/21/17 05/28/19 History Potassium Chloride [K-Tab ER] 10 meq PO DAILY 09/14/17 05/28/19 History Famotidine [Pepcid] 20 mg PO BID 02/04/18 05/28/19 History Norgestimate-Ethinyl Estradiol 1 tab PO DAILY 02/04/18 05/28/19 History [Sprintec 28 Day Tablet] Pioglitazone [Actos] 15 mg PO DAILY 03/20/18 05/28/19 History DULoxetine HCL [Cymbalta] 60 mg PO BID 01/19/19 05/28/19 History EPINEPHrine (Auto Inject) [Epipen] 0.3 mg IM DAILY PRN 01/19/19 05/26/19 History Flunisolide [Aerospan] 2 puff INHALATION RT-BID 01/19/19 05/26/19 History Phentermine HCl [Adipex-P] 37.5 mg PO DAILY 01/19/19 05/28/19 History Prochlorperazine [Compazine] 10 mg PO Q4H PRN 01/19/19 05/28/19 History cloNIDine HCL [Catapres] 0.2 mg PO HS 01/19/19 05/28/19 History Loratadine [Claritin] 10 mg PO DAILY 05/26/19 05/28/19 History Allergies Allergy/AdvReac Type Severity Reaction Status Date / Time fentanyl Allergy Rash/Hives Verified 05/28/19 07:16 grape Allergy Anaphylaxis Verified 05/28/19 07:16 latex Allergy Rash/Hives Verified 05/28/19 07:16 metoclopramide [From Reglan] Allergy Unknown Verified 05/28/19 07:16 Penicillins Allergy Anaphylaxis Verified 05/28/19 07:16 ibuprofen [From Motrin] AdvReac GI Bleed Verified 05/28/19 07:16 prazosin AdvReac Nausea & Verified 05/28/19 07:16 Vomiting Seafood Allergy Anaphylaxis Uncoded 05/28/19 07:16 Surgical - Exam Vital Signs Temp Pulse Resp BP Pulse Ox 98.4 F 93 17 102/55 97 05/28/19 07:20 05/28/19 07:20 05/28/19 07:20 05/28/19 07:20 05/28/19 07:20 - General well developed, well nourished, no distress - Eyes PERRL - ENT normal pinna - Neck no masses - Respiratory normal expansion - Cardiovascular Rhythm: regular - Abdomen Abdomen: soft, non tender Assessment and Plan Assessment: GERD, morbid obesity. We'll perform EGD.
--- NOTE | 2019-05-28 08:11 | P.OP ---
Date of Procedure: 05/28/19 Preoperative Diagnosis: GERD Morbid obesity Postoperative Diagnosis: Antral gastritis Mild esophagitis Procedure(s) Performed: EGD Anesthesia: MAC Surgeon: Sylvester James Pathology: other (Antrum, esophagus) Condition: stable Disposition: PACU Description of Procedure: The patient's placed on the endoscopy table in the lateral position. She received IV sedation. The gastroscope placed oropharynx passed in the esophagus and into the stomach. Scope was then placed through the pylorus. The first and second portion of the duodenum appeared normal. Scope was then brought back the antrum and this was mildly inflamed. The antrum was biopsied. The scope was unretroflexed and remainder of the stomach appeared normal. There was a very small hiatal hernia. The GE junction was at esophagus appeared minimally inflamed a biopsies performed. The proximal esophagus appeared normal. Scope was withdrawn for patient.
[2019-05-28 08:26] VITALS: BP 123/87; PULSE 84
== END 2019-05-28 08:49 | disposition home or self-care (01) ==
LOC: ORWHC2ENDO 06:02
PROVIDERS: ATTEND Surgery
DX: K29.50 Unspecified chronic gastritis without bleeding (principal); K21.0 Gastro-esophageal reflux disease with esophagitis; E66.01 Morbid (severe) obesity due to excess calories; K44.9 Diaphragmatic hernia without obstruction or gangrene; J45.909 Unspecified asthma, uncomplicated; E03.9 Hypothyroidism, unspecified; M79.7 Fibromyalgia; K74.60 Unspecified cirrhosis of liver; B19.20 Unspecified viral hepatitis C without hepatic coma; K58.9 Irritable bowel syndrome, unspecified; F41.9 Anxiety disorder, unspecified; F31.9 Bipolar disorder, unspecified; F43.10 Post-traumatic stress disorder, unspecified; F20.9 Schizophrenia, unspecified; R00.0 Tachycardia, unspecified; K31.84 Gastroparesis; Z68.42 Body mass index [BMI] 45.0-49.9, adult; Z79.899 Other long term (current) drug therapy; Z79.890 Hormone replacement therapy; Z79.3 Long term (current) use of hormonal contraceptives; Z79.51 Long term (current) use of inhaled steroids; Z90.49 Acquired absence of other specified parts of digestive tract; Z82.5 Family history of asthma and other chronic lower respiratory diseases; Z83.79 Family history of other diseases of the digestive system; Z82.49 Family history of ischemic heart disease and other diseases of the circulatory system; Z91.040 Latex allergy status; Z88.5 Allergy status to narcotic agent; Z88.6 Allergy status to analgesic agent; Z88.0 Allergy status to penicillin; Z88.8 Allergy status to other drugs, medicaments and biological substances; Z91.013 Allergy to seafood; Z91.018 Allergy to other foods; Z87.898 Personal history of other specified conditions
CPT/HCPCS: 81025; 88305; 43239; J2001; J2704

== ENCOUNTER → 2019-06-08 | Outpatient (CLI) | payer OTHER ==
[2019-06-08 15:29] VITALS: BP 125/88; PULSE 72; TEMP 98.2; BMI 45.9
--- NOTE | 2019-06-11 11:09 | P.HPBAR ---
Bariatric H&P - History & Physicial H&P Date: 06/08/19 History & Physicial: Visit/CC: EGD FOLLOW UP Patient initial contact: Initial weight: 113.307 kg Initial weight in pounds: 249.80 Height: 5 ft 1 in Initial BMI: 47.2 Last weight: Current weight: 110.223 kg Current weight in pounds: 243.00 Current BMI: 45.9 [place] body weight (based on NIH guidelines): 47.627 kg Excess body weight loss: 4.6% The patient is a 23 year-old F who presents for Bariatric Assessment. Patient presents today for presurgical consultation. She says had her EGD performed. Her BMI is 46. Past Medical History Past Medical History: Asthma, Chest Pain / Angina, Fibromyalgia, GERD/Reflux, Liver Disease, Thyroid Disorder Additional Past Medical History / Comment(s): Cirrhosis of the liver and hepatitis C (pt states these are partly due to her genetics and partly due to mental health medications she has been taking since age 4), Esophagitis. IBS. PART OF STOMACH NON-FUNCTIONING. BLOOD IN STOOL, 04/08 pt reports VOMITING DAILY due to abdominal pain and migraines (vomited blood 1 week ago)., "fast heart beat", gastoporesis, hypothyroidism History of Any Multi-Drug Resistant Organisms: None Reported Past Surgical History: Appendectomy, Cholecystectomy, Tonsillectomy Additional Past Surgical History / Comment(s): NASAL Septum repair. COLONOSCOPY., Past Anesthesia/Blood Transfusion Reactions: Motion Sickness Past Psychological History: Anxiety, Depression, PTSD Additional Psychological History / Comment(s): 04/20/19: Takes [place] and Cymbalta daily Smoking Status: Never smoker Past Alcohol Use History: None Reported Past Drug Use History: None Reported - Past Family History Mother Family Medical History: No Reported History Father Family Medical History: Liver Disease Additional Family Medical History / Comment(s): at age 61 from COPD. ALso had cirrhosis,hepatitis C, pancreatitis, heart attacks (multiple) and esophagus disease Surgical - Exam Vital Signs Temp Pulse BP 98.2 F 72 125/88 06/08/19 15:26 06/08/19 15:26 06/08/19 15:26 - General well developed, well nourished, no distress - Eyes PERRL - ENT normal pinna - Neck no masses - Respiratory normal expansion - Cardiovascular Rhythm: regular - Abdomen Abdomen: soft, non tender Bariatric Assessment & Plan Plan: Morbid obesity with BMI 46. Patient will be scheduled for sleeve gastrectomy once her insurance authorization is complete. Bariatric Checklist Checklist: Plan: Checklist: EGD: 1. Hiatal hernia: 2. H. Pylori: HgbA1c: Vitamin D: Smoking: Never smoker Primary care physician referral: Marysol Rose Do Psychiatry clearance: Cardiology clearance: Sleep study: Diet journal: VTE risk score: VTE risk level: Rehab needs at discharge:
== END | disposition home or self-care (01) ==
LOC: BARWHC3 13:38
PROVIDERS: ATTEND Surgery
DX: E66.01 Morbid (severe) obesity due to excess calories (principal); Z68.42 Body mass index [BMI] 45.0-49.9, adult; Z90.49 Acquired absence of other specified parts of digestive tract; Z90.89 Acquired absence of other organs; Z98.890 Other specified postprocedural states
CPT/HCPCS: 99211

== ENCOUNTER → 2019-06-16 | Outpatient (CLI) | payer OTHER | END | disposition home or self-care (01) | LOC: LABWHC1 08:19 | PROVIDERS: ATTEND Psychiatry & Neurology Psychiatry | DX: Z51.81 Encounter for therapeutic drug level monitoring (principal); Z79.899 Other long term (current) drug therapy | CPT/HCPCS: 36415; 80178 ==

== ENCOUNTER → 2019-10-19 | Outpatient (CLI) | payer OTHER ==
[2019-10-19 13:23] VITALS: BP 149/85; PULSE 95; RESP 16; TEMP 97.7; BMI 47.7
--- NOTE | 2019-10-19 13:40 | P.HPBAR ---
Bariatric H&P - History & Physicial H&P Date: 10/19/19 History & Physicial: Visit/CC: WORKING ON cRITERIA Patient initial contact: Initial weight: 113.307 kg Initial weight in pounds: 249.80 Height: 5 ft 1 in Initial BMI: 47.2 Last weight: Current weight: 114.759 kg Current weight in pounds: 253.00 Current BMI: 47.7 [place] body weight (based on NIH guidelines): 47.627 kg Excess body weight loss: The patient is a 24 year-old F who presents for Bariatric Assessment. Patient presents today for presurgical consultation. Apparent she is scheduled liver psych evaluation done next month. She has completed her 6 months of physical direct weight loss. Her BMI is 48. Past Medical History Past Medical History: Asthma, Chest Pain / Angina, Fibromyalgia, GERD/Reflux, Liver Disease, Thyroid Disorder Additional Past Medical History / Comment(s): Cirrhosis of the liver and hepatitis C (pt states these are partly due to her genetics and partly due to mental health medications she has been taking since age 4), Esophagitis. IBS. PART OF STOMACH NON-FUNCTIONING. BLOOD IN STOOL, 04/08 pt reports VOMITING DAILY due to abdominal pain and migraines (vomited blood 1 week ago)., "fast heart beat", gastoporesis, hypothyroidism History of Any Multi-Drug Resistant Organisms: None Reported Past Surgical History: Appendectomy, Cholecystectomy, Tonsillectomy Additional Past Surgical History / Comment(s): NASAL Septum repair. COLONOSCOPY., Past Anesthesia/Blood Transfusion Reactions: Motion Sickness Smoking Status: Never smoker - Past Family History Mother Family Medical History: No Reported History Father Family Medical History: Liver Disease Additional Family Medical History / Comment(s): at age 61 from COPD. ALso had cirrhosis,hepatitis C, pancreatitis, heart attacks (multiple) and esophagus disease Surgical - Exam Vital Signs Temp Pulse Resp BP 97.7 F 95 16 149/85 10/19/19 13:21 10/19/19 13:21 10/19/19 13:21 10/19/19 13:21 - General well developed, well nourished, no distress - Eyes PERRL - ENT normal pinna - Neck no masses - Respiratory normal expansion - Cardiovascular Rhythm: regular - Abdomen Abdomen: soft, non tender Bariatric Assessment & Plan Plan: Morbid obesity, BMI 48. Patient will be scheduled for sleeve gastrectomy once her psychiatric evaluations performed. We went over the risks and benefits of sleeve gastrectomy. She is aware the risk of staple line disruption, bleeding and scarring. Bariatric Checklist Checklist: Plan: Checklist: EGD: 1. Hiatal hernia: 2. H. Pylori: HgbA1c: Vitamin D: Smoking: Never smoker Primary care physician referral: Marysol Rose Do Psychiatry clearance: Cardiology clearance: Sleep study: Diet journal: VTE risk score: VTE risk level: Rehab needs at discharge:
== END | disposition home or self-care (01) ==
LOC: BARWHC3 13:19
PROVIDERS: ATTEND Surgery
DX: E66.01 Morbid (severe) obesity due to excess calories (principal); Z68.42 Body mass index [BMI] 45.0-49.9, adult; Z90.49 Acquired absence of other specified parts of digestive tract; Z98.890 Other specified postprocedural states
CPT/HCPCS: 99211

== ENCOUNTER → 2019-11-16 | Outpatient (CLI) | payer OTHER ==
[2019-11-16 14:45] VITALS: BP 114/83; PULSE 94; TEMP 98.1; BMI 47.6
== END | disposition home or self-care (01) ==
LOC: BARWHC3 13:43
PROVIDERS: ATTEND Surgery
DX: Z01.818 Encounter for other preprocedural examination (principal); Z90.49 Acquired absence of other specified parts of digestive tract
CPT/HCPCS: 99211

== ENCOUNTER → 2020-02-22 | Outpatient (CLI) | payer OTHER ==
[2020-02-22 11:58] VITALS: BMI 46.7
== END | disposition home or self-care (01) ==
LOC: BARWHC3 09:07
PROVIDERS: ATTEND Surgery
DX: E66.01 Morbid (severe) obesity due to excess calories (principal); Z68.42 Body mass index [BMI] 45.0-49.9, adult
CPT/HCPCS: 97804

== ENCOUNTER → 2020-04-18 | Outpatient (CLI) | payer OTHER ==
[2020-04-18 15:40] LABS: Basophils % (A) 0 %; Eosinophils # (A) 0.3 k/uL (0-0.7); Eosinophils % (A) 3 %; HCT 41.8 % (34.0-46.0); HGB 12.7 gm/dL (11.4-16.0); Hypochromasia Slight; Lymphocytes # (A) 2.7 k/uL (1.0-4.8); Lymphocytes % (A) 24 %; MCH 25.5 pg (25.0-35.0); MCHC 30.4 g/dL (31.0-37.0); MCV 83.9 fL (80.0-100.0); Monocytes # (A) 0.5 k/uL (0-1.0); Monocytes % (A) 5 %; Neutrophils # (A) 7.2 k/uL (1.3-7.7); Neutrophils % (A) 66 %; Platelet Count 354 k/uL (150-450); RBC 4.99 m/uL (3.80-5.40); WBC 10.9 k/uL (3.8-10.6)
[2020-04-18 15:47] LABS: ALT 304 U/L (4-34); AST 276 U/L (14-36); African American GFR (CKD) >90 (>60 ml/min/1.73 sqM); Albumin 4.4 g/dL (3.5-5.0); Alkaline Phosphatase 79 U/L (38-126); Anion Gap 12 mmol/L; Blood Urea Nitrogen 16 mg/dL (7-17); Calcium 10.2 mg/dL (8.4-10.2); Carbon Dioxide 21 mmol/L (22-30); Chloride 105 mmol/L (98-107); Glucose 86 mg/dL (74-99); Non-African American GFR(CKD) >90 (>60 ml/min/1.73 sqM); Potassium 4.4 mmol/L (3.5-5.1); Sodium 138 mmol/L (137-145); Total Bilirubin 0.4 mg/dL (0.2-1.3); Total Protein 8.4 g/dL (6.3-8.2)
== END ==
LOC: LABWHC1 14:22
PROVIDERS: ATTEND Surgery
DX: Z01.818 Encounter for other preprocedural examination (principal)
CPT/HCPCS: 36415; 80053; 85025

== ENCOUNTER → 2020-04-18 | Outpatient (CLI) | payer OTHER ==
--- NOTE | 2020-04-18 14:13 | P.HPBAR ---
Bariatric H&P - History & Physicial H&P Date: 04/18/20 History & Physicial: Visit/CC: Patient initial contact: Initial weight: 113.307 kg Initial weight in pounds: Height: Initial BMI: Last weight: Current weight: Current weight in pounds: Current BMI: [place] body weight (based on NIH guidelines): Excess body weight loss: The patient is a 24 year-old F who presents for Bariatric Assessment. Patient presents today for pre-consultation. She is scheduled for sleeve gastrectomy next week. Patient is morbidly obese. Her BMI is 47. Past Medical History Past Medical History: Asthma, Chest Pain / Angina, Fibromyalgia, GERD/Reflux, L iver Disease, Thyroid Disorder Additional Past Medical History / Comment(s): Cirrhosis of the liver and hepatitis C (pt states these are partly due to her genetics and partly due to mental health medications she has been taking since age 4), Esophagitis. IBS. PART OF STOMACH NON-FUNCTIONING. BLOOD IN STOOL, 04/08 pt reports VOMITING DAILY due to abdominal pain and migraines (vomited blood 1 week ago)., "fast heart beat", gastoporesis, hypothyroidism History of Any Multi-Drug Resistant Organisms: None Reported Past Surgical History: Appendectomy, Cholecystectomy, Tonsillectomy Additional Past Surgical History / Comment(s): NASAL Septum repair. COLONOSCOPY., Past Anesthesia/Blood Transfusion Reactions: Motion Sickness Past Psychological History: Anxiety, Depression, PTSD Additional Psychological History / Comment(s): 04/20/19: Takes [place] and Cymbalta daily Past Alcohol Use History: None Reported Past Drug Use History: None Reported - Past Family History Father Family Medical History: Liver Disease Additional Family Medical History / Comment(s): at age 61 from COPD. ALso had cirrhosis,hepatitis C, pancreatitis, heart attacks (multiple) and esophagus disease Surgical - Exam - General well developed, well nourished, no distress - Eyes PERRL - ENT normal pinna - Neck no masses - Respiratory normal expansion - Cardiovascular Rhythm: regular - Abdomen Abdomen: soft, non tender Bariatric Assessment & Plan Plan: RBC, BMI 47. Patient will undergo sleeve gastrectomy. We went over the risks and benefits of the procedure including gastric staple line bleeding, scarring or obstruction. Bariatric Checklist Checklist: Plan: Checklist: EGD: 1. Hiatal hernia: 2. H. Pylori: HgbA1c: Vitamin D: Smoking: Never smoker Primary care physician referral: Marysol Rose Do Psychiatry clearance: Cardiology clearance: Sleep study: Diet journal: VTE risk score: VTE risk level: Rehab needs at discharge:
[2020-04-18 14:50] VITALS: BP 128/75; PULSE 105; TEMP 98.2; BMI 46.6
== END | disposition home or self-care (01) ==
LOC: BARWHC3 13:24
PROVIDERS: ATTEND Surgery
DX: E66.01 Morbid (severe) obesity due to excess calories (principal); Z68.42 Body mass index [BMI] 45.0-49.9, adult
CPT/HCPCS: 99211

== ENCOUNTER → 2020-04-18 | Outpatient (CLI) | payer OTHER | END | disposition home or self-care (01) | LOC: LABWHC1 14:19 | PROVIDERS: ATTEND Family Medicine | DX: K75.81 Nonalcoholic steatohepatitis (NASH) (principal); L56.8 Other specified acute skin changes due to ultraviolet radiation; G43.709 Chronic migraine without aura, not intractable, without status migrainosus; F40.01 Agoraphobia with panic disorder | CPT/HCPCS: 36415; 80178 ==

== ENCOUNTER 2020-04-26 07:40 | Inpatient (IN) | payer OTHER ==
[~2020-04-26 07:40] MED LIST changes: +CLINDAMYCIN 900 MG in DEXTROSE 5% IN WATER 50 ML IVPB ONE; +DEXAMETHASONE SOD PHOSPHATE 10 MG/ML 1 ML VIAL IV ONE; +GENTAMICIN 340 MG in SODIUM CHLORIDE 0.9% 100 ML IVPB ONE; +LIDOCAINE 1% (10MG/ML) FOR IV START INTRADERMA PRN; -SODIUM CHLORIDE 0.9% 1,000 ML IV SCH
[2020-04-26] MEDS: LACTATED RINGERS 1,000 ML IV SCH ×2 (08:29→17:23)
--- NOTE | 2020-04-26 08:40 | P.GSHP ---
History of Present Illness H&P Date: 04/26/20 Chief Complaint: Morbid obesity This a 24-year-old female with history of morbid obesity. Her BMI is 25. Patient presents today for sleeve gastrectomy. Patient's aware the risks of surgery including conversion to the open procedure and injury to the stomach, liver or spleen. She is also aware the risk of gastric staple line disruption, bleeding and scarring. Past Medical History Past Medical History: Asthma, Chest Pain / Angina, Fibromyalgia, GERD/Reflux, Liver Disease, Thyroid Disorder Additional Past Medical History / Comment(s): Cirrhosis of the liver and hepatitis C (pt states these are partly due to her genetics and partly due to mental health medications she has been taking since age 4), Esophagitis. IBS. PART OF STOMACH NON-FUNCTIONING. BLOOD IN STOOL, 04/08 pt reports VOMITING DAILY due to abdominal pain and migraines (vomited blood 1 week ago)., "fast heart beat", gastroporesis, on actos till 1 week ago-wasn't taking for diabetes History of Any Multi-Drug Resistant Organisms: None Reported Past Surgical History: Appendectomy, Cholecystectomy, Tonsillectomy Additional Past Surgical History / Comment(s): NASAL Septum repair. COLONOSCOPY., Past Anesthesia/Blood Transfusion Reactions: Motion Sickness Additional Past Anesthesia/Blood Transfusion Reaction / Comment(s): woke up once during surgery Smoking Status: Never smoker - Past Family History Mother Family Medical History: No Reported History Father Family Medical History: Liver Disease Additional Family Medical History / Comment(s): at age 61 from COPD. ALso had cirrhosis,hepatitis C, pancreatitis, heart attacks (multiple) and esophagus disease Medications and Allergies Home Medications Medication Instructions Recorded Confirmed Type [place] Carbonate 900 mg PO HS 08/27/15 04/21/20 History Omeprazole [PriLOSEC] 60 mg PO QAM 08/27/15 04/26/20 History Levothyroxine Sodium [Synthroid] 125 mcg PO QAM 01/06/17 04/21/20 History Ergocalciferol [Vitamin D2 50,000 unit PO BELL 02/13/17 04/26/20 History (DRISDOL)] Montelukast [Singulair] 10 mg PO HS 05/21/17 04/26/20 History Potassium Chloride [K-Tab ER] 10 meq PO DAILY 09/14/17 04/21/20 History Famotidine [Pepcid] 20 mg PO BID 02/04/18 04/26/20 History Norgestimate-Ethinyl Estradiol 1 tab PO DAILY 02/04/18 04/21/20 History [Sprintec 28 Day Tablet] DULoxetine HCL [Cymbalta] 60 mg PO BID 01/19/19 04/21/20 History EPINEPHrine (Auto Inject) [Epipen] 0.3 mg IM DAILY PRN 01/19/19 04/21/20 History Flunisolide [Aerospan] 2 puff INHALATION RT-BID PRN 01/19/19 04/26/20 History Prochlorperazine [Compazine] 10 mg PO Q4H PRN 01/19/19 04/26/20 History cloNIDine HCL [Catapres] 0.2 mg PO HS 01/19/19 04/21/20 History Loratadine [Claritin] 10 mg PO DAILY 05/26/19 04/21/20 History traZODone HCL 200 mg PO HS 10/19/19 04/21/20 History Multivitamins, Thera [Multivitamin 1 tab PO DAILY 04/21/20 04/21/20 History (formulary)] Vitamin C/Biotin [Hair, Skin and 1 tab PO DAILY 04/21/20 04/21/20 History Nails] Allergies Allergy/AdvReac Type Severity Reaction Status Date / Time fentanyl Allergy Rash/Hives Verified 04/26/20 07:59 latex Allergy Rash/Hives Verified 04/26/20 07:59 metoclopramide [From Reglan] Allergy Unknown Verified 04/26/20 07:59 Penicillins Allergy Anaphylaxis Verified 04/26/20 07:59 ibuprofen [From Motrin] AdvReac GI Bleed Verified 04/26/20 07:59 prazosin AdvReac Nausea & Verified 04/26/20 07:59 Vomiting grape juice Allergy Anaphylaxis Uncoded 04/26/20 07:59 Seafood Allergy Anaphylaxis Uncoded 04/26/20 07:59 Surgical - Exam Vital Signs Temp Pulse Resp BP Pulse Ox 97.8 F 110 H 16 114/70 97 04/26/20 08:08 04/26/20 08:08 04/26/20 08:08 04/26/20 08:08 04/26/20 08:08 - General well developed, well nourished, no distress - Eyes PERRL - ENT normal pinna - Neck no masses - Respiratory normal expansion - Cardiovascular Rhythm: regular - Abdomen Abdomen: soft, non tender Assessment and Plan Assessment: Morbid obesity, BMI of 43. Patient will undergo laparoscopic sleeve gastrectomy.
[2020-04-26] MEDS ORDERED: HEPARIN SODIUM,PORCINE 5,000 UNIT/ML 1 ML VIAL ONE ×2 (08:43→09:08)
[2020-04-26] MEDS ORDERED: SCOPOLAMINE 1.5MG/72HR PATCH TRANSDERM ONE (08:46)
[2020-04-26] MEDS ORDERED: LIDOCAINE 1% INJ 10MG/ML (20 ML MDV) ONE (09:08)
[2020-04-26] MEDS ORDERED: GLYCOPYRROLATE 0.2 MG/ML 2 ML VIAL ONE (09:08)
[2020-04-26] MEDS ORDERED: PROPOFOL 10 MG/ML 20 ML VIAL IV ONE (09:08)
[2020-04-26] MEDS ORDERED: SUCCINYLCHOLINE CHLORIDE 100 MG/5 ML SYR IV ONE (09:08)
[2020-04-26] MEDS ORDERED: ROCURONIUM BROMIDE 10 MG/ML 5 ML VIAL IV ONE (09:08)
[2020-04-26] MEDS ORDERED: KETOROLAC 30 MG/ML 1 ML VIAL ONE (09:08)
[2020-04-26] MEDS ORDERED: MIDAZOLAM 2 MG/2 ML VIAL ONE (09:08)
[2020-04-26] MEDS ORDERED: ACETAMINOPHEN IV (For NPO) 1,000 MG/100 ML VIAL ONE (09:08)
[2020-04-26] MEDS ORDERED: NEOSTIGMINE 1 MG/ML 10 ML VIAL ONE (09:08)
[2020-04-26] MEDS ORDERED: BUPIVACAINE (PF) 0.25% 30 ML VIAL SQ ONE (09:37)
[2020-04-26] MEDS ORDERED: NALOXONE 0.4 MG/ML 1 ML VIAL IV PRN (10:27)
--- NOTE | 2020-04-26 10:27 | P.OP ---
Date of Procedure: 04/26/20 Preoperative Diagnosis: Morbid obesity Postoperative Diagnosis: Morbid obesity, BMI 43 Procedure(s) Performed: Laparoscopic sleeve gastrectomy Anesthesia: RADHA Surgeon: Sylvester James Estimated Blood Loss (ml): 20 Pathology: other (Stomach) Condition: stable Disposition: PACU Description of Procedure: The patient was placed on the operating room table in the supine position. She received general anesthesia and then was placed in dorsal lithotomy position. Her abdomen was prepped and draped in sterile fashion. The skin incision sites were anesthetized 1% local Xylocaine. And then the skin was incised with an 11 blade in the left lateral position. Using a blade less trocar under direct visualization the peritoneal cavity was entered. The abdomen was insufflated and then a 5 mm laparoscope was placed into the peritoneal cavity. A 5 mm trocar was placed in the right epigastric, and right lateral position. A 15 mm trocar was placed in the supra-umbilical position and another 5 mm trocar was placed in the left lateral position. The left lateral lobe of the liver was retracted. The stomach was visualized. The greater curvature of the stomach was then dissected using the Harmonic scissors. The dissection occurred approximately 5 cm from the pylorus to the level of the left libia. There was no hiatal hernia seen. At this point a 40-Iranian bougie dilator was placed the oropharynx and passed into the esophagus and into the stomach by the [employer]. The sleeve gastrectomy was performed by using the powered echelon stapler with a seam guard buttress material. Sequential firings of the stapler were performed. The gastric remnant was then brought out through the 15 mm trocar site. The dilator was withdrawn. And a orogastric tube was replaced into the stomach. The stomach was insufflated with 200 mL of methylene blue normal saline. There was no evidence of extravasation. The abdomen was irrigated there is no bleeding seen. The Elvin-Jeremias device was used to close the 15 mm trocar with 0 Vicryl. Skin was closed with interrupted 3-0 Monocryl sutures once the trochars withdrawn. Dermabond dressing was applied. Patient was sent to recovery in stable condition.
[2020-04-26] MEDS ORDERED: diphenhydrAMINE 50 MG/ML 1 ML VIAL IVP ONE (10:37)
[2020-04-26] MEDS ORDERED: PROMETHAZINE INJ 25 MG/ML 1 ML VIAL IVPB ONE (10:56)
[2020-04-26] MEDS: HYDROmorphone 0.5 MG/0.5 ML SYRINGE IVP PRN ×4 (11:05→19:37)
[2020-04-26] MEDS ORDERED: SODIUM CHLORIDE 0.9% 1,000 ML IV ONE (11:56)
[2020-04-26] MEDS: ONDANSETRON 4 MG/2 ML VIAL IVP PRN ×2 (14:24→23:09)
[2020-04-26] MEDS: ALBUTEROL NEBULIZED 2.5 MG/3 ML INHALATION SCH ×3 (15:56→19:48)
[2020-04-26] MEDS: KETOROLAC 30 MG/ML 1 ML VIAL IVP SCH ×3 (16:31→23:09)
[2020-04-26] MEDS: 0.9% NACL WITH KCL 20 MEQ/L 1,000 ML IV SCH ×2 (17:23→23:18)
[2020-04-26] MEDS: ENOXAPARIN 40 MG/0.4 ML SYRINGE SQ SCH (21:28)
[2020-04-27] MEDS: KETOROLAC 30 MG/ML 1 ML VIAL IVP SCH ×3 (05:28→17:59)
[2020-04-27] MEDS: 0.9% NACL WITH KCL 20 MEQ/L 1,000 ML IV SCH ×2 (05:28→11:58)
[2020-04-27] MEDS: ONDANSETRON 4 MG/2 ML VIAL IVP PRN ×2 (05:28→21:01)
[2020-04-27] MEDS: ALBUTEROL NEBULIZED 2.5 MG/3 ML INHALATION SCH ×4 (07:29→20:01)
[2020-04-27] MEDS: PANTOPRAZOLE 40 MG/10 ML VIAL IV SCH (08:45)
[2020-04-27] MEDS: HYDROmorphone 0.5 MG/0.5 ML SYRINGE IVP PRN ×3 (08:46→22:25)
[2020-04-27 09:17] LABS: Basophils % (A) 0 %; Eosinophils % (A) 0 %; HCT 35.6 % (34.0-46.0); HGB 10.9 gm/dL (11.4-16.0); Hypochromasia Moderate; Lymphocytes # (A) 2.7 k/uL (1.0-4.8); Lymphocytes % (A) 17 %; MCH 25.4 pg (25.0-35.0); MCHC 30.6 g/dL (31.0-37.0); MCV 82.8 fL (80.0-100.0); Monocytes # (A) 0.8 k/uL (0-1.0); Monocytes % (A) 5 %; Neutrophils # (A) 12.1 k/uL (1.3-7.7); Neutrophils % (A) 76 %; Platelet Count 369 k/uL (150-450); RDW 15.1 % (11.5-15.5); WBC 15.9 k/uL (3.8-10.6)
[2020-04-27] MEDS: DEXAMETHASONE SOD PHOSPHATE 4 MG/ML 1 ML VIAL IV SCH ×3 (09:37→17:59)
[2020-04-27 09:41] LABS: African American GFR (CKD) >90 (>60 ml/min/1.73 sqM); Anion Gap 8 mmol/L; Blood Urea Nitrogen 6 mg/dL (7-17); Calcium 9.6 mg/dL (8.4-10.2); Carbon Dioxide 21 mmol/L (22-30); Chloride 115 mmol/L (98-107); Magnesium 2.2 mg/dL (1.6-2.3); Non-African American GFR(CKD) >90 (>60 ml/min/1.73 sqM); Phosphorus 2.7 mg/dL (2.5-4.5); Potassium 4.4 mmol/L (3.5-5.1); Sodium 144 mmol/L (137-145)
--- NOTE | 2020-04-27 10:34 | FL ---
EXAMINATION TYPE: FL UGI DATE OF EXAM: 04/27/2020 COMPARISON: NONE HISTORY: Postop bariatric surgery TECHNIQUE: A single contrast UGI study is performed. FINDINGS: Limited evaluation performed of the surgical site. 1 minute 8 seconds fluoroscopy time. 25 cc Isovue given orally. 6 images obtained. There is persistent contrast accumulation at the level of the distal esophagus. Small amount of contr ast courses through the region of the gastric sleeve. Despite delayed imaging there is persistent con trast within the distal esophagus. Postop changes are noted. IMPRESSION: Moderate to severe partial obstruction is noted at the surgical site
[2020-04-27 11:07] VITALS: BMI 43.0
--- NOTE | 2020-04-27 12:33 | P.PN ---
Subjective Progress Note Date: 04/27/20 CHIEF COMPLAINT: Morbid obesity HISTORY OF PRESENT ILLNESS: Postoperative day #1 status post laparoscopic sleeve gastrectomy. Patient is having some nausea and vomiting. She complains of upper abdominal pain. Upper GI series shows a [id number] partial obstruction noted at the surgical site. PHYSICAL EXAM: VITAL SIGNS: Reviewed. GENERAL: Well-developed in no acute distress. HEENT: No sclera icterus. Extraocular movements grossly intact. Moist buccal mucosa. Head is atraumatic, normocephalic. ABDOMEN: Soft. Nondistended. Nontender. NEUROLOGIC: Alert and oriented. Cranial nerves II through XII grossly intact. ASSESSMENT: 1. Morbid obesity status post Laparoscopic sleeve gastrectomy PLAN: -Advance diet to a bariatric clears -Continue Zofran and scopolamine patch as needed for nausea -Dr. 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 Signing provider agrees with the documented findings, assessment, and plan of care. Objective - Vital Signs Vital signs: Vital Signs Temp 98.8 F 04/27/20 07:00 Pulse 92 04/27/20 11:42 Resp 16 04/27/20 11:42 BP 113/74 04/27/20 07:00 Pulse Ox 96 04/27/20 07:32 Intake & Output 04/26/20 04/27/20 04/27/20 18:59 06:59 18:59 Intake Total 1446 1000 200 Output Total 415 2400 Balance 1031 -1400 200 Weight 103.2 kg 103.2 kg Intake: IV 1446 Intake, IV Titration 1000 Amount 0.9% NaCl with KCl 20 Meq 1000 /l 1,000 ml @ 150 mls/hr IV [id number] [facility] Rx#: [id number] Oral 200 Output: Urine 375 2400 Estimated Blood Loss 40 Other: Voiding Method Toilet Toilet # Voids 1 2 - Labs CBC & Chem 7: 04/27/20 08:38 04/27/20 08:38 Labs: Abnormal Lab Results - Last 24 Hours (Table) 04/27/20 04/27/20 Range/Units 08:38 08:38 WBC 15.9 H (3.8-10.6) k/uL Hgb 10.9 L (11.4-16.0) gm/dL MCHC 30.6 L (31.0-37.0) g/dL Neutrophils # 12.1 H (1.3-7.7) k/uL Chloride 115 H (98-107) mmol/L Carbon Dioxide 21 L (22-30) mmol/L BUN 6 L (7-17) mg/dL
[2020-04-27] MEDS: NORGESTIMATE ETHINYL ESTRADIOL PO SCH (16:28)
[2020-04-27] MEDS: LACTATED RINGERS 1,000 ML IV SCH ×2 (17:56→23:00)
[2020-04-27] MEDS: cloNIDine HCL 0.2 MG TAB PO SCH (20:49)
[2020-04-27] MEDS: ENOXAPARIN 40 MG/0.4 ML SYRINGE SQ SCH (20:49)
[2020-04-27] MEDS: LITHIUM CARBONATE 300 MG CAP PO SCH (20:49)
[2020-04-27] MEDS: DULoxetine HCL 60 MG CAPSULE.DR PO SCH (20:49)
[2020-04-27] MEDS: traZODone HCL 100 MG TAB PO SCH (20:50)
[2020-04-27] MEDS: MONTELUKAST 10 MG TAB PO SCH (20:50)
[2020-04-27] MEDS: TOPIRAMATE 25 MG TAB PO SCH (20:51)
--- NOTE | 2020-04-27 21:51 | P.CONS ---
History of Present Illness - Reason for Consult Consult date: 04/27/20 medical eval Requesting physician: Sylvester James - Chief Complaint obesity - History of Present Illness Chana Alamo is a 24 yo F with PMH morbid obesity, fibromyalgia, bipolar disorder who is POD#1 after sleeve gastrectomy. Currently she does complain of pain and nausea although feels this is improving and her medications are effective. She underwent upper GI series this morning which did show moderate partial obstruction at surgical site. She denies chest pain, shortness of breath, fever, chills. Review of Systems All systems: negative Constitutional: Reports malaise, Denies chills, Denies fever Eyes: denies blurred vision, denies pain Ears, nose, mouth and throat: Denies headache, Denies sore throat Cardiovascular: Denies chest pain, Denies shortness of breath Respiratory: Denies cough Gastrointestinal: Reports abdominal pain, Reports loss of appetite, Reports nausea, Reports vomiting, Denies diarrhea Genitourinary: Denies dysuria, Denies hematuria Musculoskeletal: Denies myalgias Integumentary: Denies pruritus, Denies rash Neurological: Denies numbness, Denies weakness Psychiatric: Denies anxiety, Denies depression Endocrine: Denies fatigue, Denies weight change Past Medical History Past Medical History: Asthma, Chest Pain / Angina, Fibromyalgia, GERD/Reflux, Liver Disease, Thyroid Disorder Additional Past Medical History / Comment(s): Cirrhosis of the liver and hepatitis C (pt states these are partly due to her genetics and partly due to mental health medications she has been taking since age 4), Esophagitis. IBS. PART OF STOMACH NON-FUNCTIONING. BLOOD IN STOOL, 04/08 pt reports VOMITING DAILY due to abdominal pain and migraines (vomited blood 1 week ago)., "fast heart beat", gastroporesis, on actos till 1 week ago-wasn't taking for diabetes History of Any Multi-Drug Resistant Organisms: None Reported Past Surgical History: Appendectomy, Cholecystectomy, Tonsillectomy Additional Past Surgical History / Comment(s): NASAL Septum repair. COLONOSCOPY., Past Anesthesia/Blood Transfusion Reactions: Motion Sickness Additional Past Anesthesia/Blood Transfusion Reaction / Comm: woke up once during surgery Past Psychological History: Anxiety, Depression, PTSD Additional Psychological History / Comment(s): 04/20/19: Takes [place] and Cymbalta daily Smoking Status: Never smoker Past Alcohol Use History: None Reported Past Drug Use History: None Reported - Past Family History Mother Family Medical History: No Reported History Father Family Medical History: Liver Disease Additional Family Medical History / Comment(s): at age 61 from COPD. ALso had cirrhosis,hepatitis C, pancreatitis, heart attacks (multiple) and esophagus disease Medications and Allergies Home Medications Medication Instructions Recorded Confirmed Type [place] Carbonate 900 mg PO DAILY 08/27/15 04/26/20 History Omeprazole [PriLOSEC] 60 mg PO QAM 08/27/15 04/26/20 History Levothyroxine Sodium [Synthroid] 125 mcg PO QAM 01/06/17 04/21/20 History Ergocalciferol [Vitamin D2 50,000 unit PO BELL 02/13/17 04/26/20 History (DRISDOL)] Montelukast [Singulair] 10 mg PO HS 05/21/17 04/26/20 History Potassium Chloride [K-Tab ER] 10 meq PO DAILY 09/14/17 04/21/20 History Famotidine [Pepcid] 20 mg PO BID 02/04/18 04/26/20 History Norgestimate-Ethinyl Estradiol 1 tab PO DAILY 02/04/18 04/21/20 History [Sprintec 28 Day Tablet] DULoxetine HCL [Cymbalta] 60 mg PO BID 01/19/19 04/21/20 History EPINEPHrine (Auto Inject) [Epipen] 0.3 mg IM DAILY PRN 01/19/19 04/21/20 History Flunisolide [Aerospan] 2 puff INHALATION RT-BID PRN 01/19/19 04/26/20 History Prochlorperazine [Compazine] 10 mg PO Q4H PRN 01/19/19 04/26/20 History cloNIDine HCL [Catapres] 0.2 mg PO HS 01/19/19 04/21/20 History Loratadine [Claritin] 10 mg PO DAILY 05/26/19 04/21/20 History traZODone HCL 200 mg PO HS 10/19/19 04/21/20 History Multivitamins, Thera [Multivitamin 1 tab PO DAILY 04/21/20 04/21/20 History (formulary)] Vitamin C/Biotin [Hair, Skin and 1 tab PO DAILY 04/21/20 04/21/20 History Nails] Topiramate [Topiramate ER] 100 mg PO DAILY 04/26/20 04/26/20 History Allergies Allergy/AdvReac Type Severity Reaction Status Date / Time fentanyl Allergy Rash/Hives Verified 04/26/20 07:59 latex Allergy Rash/Hives Verified 04/26/20 07:59 metoclopramide [From Reglan] Allergy Unknown Verified 04/26/20 07:59 Penicillins Allergy Anaphylaxis Verified 04/26/20 07:59 ibuprofen [From Motrin] AdvReac GI Bleed Verified 04/26/20 07:59 prazosin AdvReac Nausea & Verified 04/26/20 07:59 Vomiting grape juice Allergy Anaphylaxis Uncoded 04/26/20 07:59 Seafood Allergy Anaphylaxis Uncoded 04/26/20 07:59 Physical Exam Vitals: Vital Signs Temp Pulse Pulse Resp BP Pulse Ox Pulse Ox 04/27/20 20:15 86 04/27/20 20:02 84 04/27/20 14:48 98.0 F 86 20 127/77 98 04/27/20 11:42 92 16 04/27/20 11:32 93 16 04/27/20 09:30 98 04/27/20 07:41 93 04/27/20 07:32 96 04/27/20 07:30 103 H 04/27/20 07:00 98.8 F 89 16 113/74 99 04/27/20 02:29 99.0 F 100 13 159/82 98 04/26/20 23:51 14 Pulse Ox 04/27/20 20:15 04/27/20 20:02 04/27/20 14:48 04/27/20 11:42 04/27/20 11:32 04/27/20 09:30 96 04/27/20 07:41 04/27/20 07:32 04/27/20 07:30 04/27/20 07:00 04/27/20 02:29 04/26/20 23:51 Intake and Output 04/27/20 04/27/20 04/27/20 06:59 14:59 22:59 Intake Total 200 Output Total 1999 Balance -1999 200 Intake: Oral 200 Output: Urine 1999 Other: Voiding Method Toilet Toilet Weight 103.2 kg General: obese, well developed, NAD. Vitals reviewed Eyes: PERRL, EOMI, conjunctiva normal HENT: normocephalic, mucus membranes moist Neck: supple, no JVD Lungs: normal respiratory effort, no wheezes or rales CV: Regular rate and rhythm, no murmur. Peripheral pulses 2+ Abdomen: soft, nondistended, no organomegaly. generalized tenderness Lymph: no cervical or axillary LAD Skin: warm and dry. Neuro: A&Ox3, normal mood and affect Results CBC & Chem 7: 04/27/20 08:38 04/27/20 08:38 Labs: Abnormal Lab Results - Last 24 Hours (Table) 04/27/20 04/27/20 Range/Units 08:38 08:38 WBC 15.9 H (3.8-10.6) k/uL Hgb 10.9 L (11.4-16.0) gm/dL MCHC 30.6 L (31.0-37.0) g/dL Neutrophils # 12.1 H (1.3-7.7) k/uL Chloride 115 H (98-107) mmol/L Carbon Dioxide 21 L (22-30) mmol/L BUN 6 L (7-17) mg/dL Assessment and Plan (1) Fibromyalgia Current Visit: Yes Status: Acute Code(s): M79.7 - FIBROMYALGIA SNOMED Code(s): 166527224 (2) Bipolar disorder Current Visit: Yes Status: Acute Code(s): F31.9 - BIPOLAR DISORDER, UNSPECIFIED SNOMED Code(s): 16676909 (3) Morbid obesity with BMI of 45.0-49.9, adult Current Visit: No Status: Acute Code(s): E66.01 - MORBID (SEVERE) OBESITY DUE TO EXCESS CALORIES; Z68.42 - BODY MASS INDEX (BMI) 45.0-49.9, ADULT SNOMED Code(s): 691920936 (4) Eosinophilic esophagitis Current Visit: No Status: Chronic Code(s): K20.0 - EOSINOPHILIC ESOPHAGITIS SNOMED Code(s): 697203345 Plan: 1. Morbid obesity. S/p sleeve gastrectomy. Management per primary. Agree with pain control and antiemetic 2. Fibromyalgia. Resume cymbalta and topamax today 3. Bipolar disorder. Continue lithium qhs 4. Insomnia. Trazodone 5. Hypothyroid
[2020-04-28] MEDS: DEXAMETHASONE SOD PHOSPHATE 4 MG/ML 1 ML VIAL IV SCH ×5 (00:05→23:28)
[2020-04-28] MEDS: KETOROLAC 30 MG/ML 1 ML VIAL IVP SCH ×2 (00:05→06:04)
[2020-04-28] MEDS: HYOSCYAMINE ORAL DROPS 1.875 MG/15 ML BOTTLE PO PRN ×2 (00:31→13:07)
[2020-04-28] MEDS: SIMETHICONE 40 MG/0.6 ML DROPS 2,000 MG/30 ML BOTTLE PO PRN ×2 (00:31→13:07)
[2020-04-28] MEDS: NORGESTIMATE ETHINYL ESTRADIOL PO SCH (07:08)
[2020-04-28] MEDS: ALBUTEROL NEBULIZED 2.5 MG/3 ML INHALATION SCH ×4 (07:29→20:52)
[2020-04-28] MEDS: HYDROmorphone 0.5 MG/0.5 ML SYRINGE IVP PRN ×4 (08:17→21:19)
[2020-04-28] MEDS: LEVOTHYROXINE 125 MCG TAB PO SCH (08:17)
[2020-04-28] MEDS: PANTOPRAZOLE 40 MG/10 ML VIAL IV SCH (08:17)
[2020-04-28] MEDS: TOPIRAMATE 25 MG TAB PO SCH ×2 (08:17→21:11)
[2020-04-28] MEDS: DULoxetine HCL 60 MG CAPSULE.DR PO SCH ×2 (08:17→21:11)
[2020-04-28 08:55] LABS: HCT 33.7 % (34.0-46.0); HGB 10.4 gm/dL (11.4-16.0); Hypochromasia Marked; MCH 25.9 pg (25.0-35.0); MCHC 30.8 g/dL (31.0-37.0); Mean Platelet Volume 8.1; Platelet Count 301 k/uL (150-450); RBC 4.01 m/uL (3.80-5.40); WBC 9.6 k/uL (3.8-10.6)
[2020-04-28 09:06] LABS: African American GFR (CKD) >90 (>60 ml/min/1.73 sqM); Anion Gap 5 mmol/L; Blood Urea Nitrogen 11 mg/dL (7-17); Calcium 9.6 mg/dL (8.4-10.2); Carbon Dioxide 25 mmol/L (22-30); Chloride 112 mmol/L (98-107); Glucose 100 mg/dL (74-99); Magnesium 2.2 mg/dL (1.6-2.3); Non-African American GFR(CKD) >90 (>60 ml/min/1.73 sqM); Potassium 4.6 mmol/L (3.5-5.1); Sodium 142 mmol/L (137-145)
[2020-04-28] MEDS: 0.9% NACL WITH KCL 20 MEQ/L 1,000 ML IV SCH ×3 (09:49→23:28)
[2020-04-28] MEDS: ONDANSETRON 4 MG/2 ML VIAL IVP PRN ×2 (12:19→21:20)
--- NOTE | 2020-04-28 15:06 | P.PN ---
Subjective Progress Note Date: 04/28/20 CHIEF COMPLAINT: Morbid obesity HISTORY OF PRESENT ILLNESS: Postoperative day #2 status post laparoscopic sleeve gastrectomy. Patient's nausea and vomiting have improved. Last episode of vomiting was last night. She is tolerating clear liquid diet. She has been up and ambulating. She is still complaining of some abdominal pain. She is afebrile. WBC 9.6 PHYSICAL EXAM: VITAL SIGNS: Reviewed. GENERAL: Well-developed in no acute distress. HEENT: No sclera icterus. Extraocular movements grossly intact. Moist buccal mucosa. Head is atraumatic, normocephalic. ABDOMEN: Soft. Nondistended. Incision sites, clean dry and intact NEUROLOGIC: Alert and oriented. Cranial nerves II through XII grossly intact. ASSESSMENT: 1. Morbid obesity status post Laparoscopic sleeve gastrectomy PLAN: -Continue bariatric clears -Continue Zofran and scopolamine patch as needed for nausea -Continue Decadron 4 mg IV every 6 hours -Anticipate discharge home tomorrow -Encourage patient to ambulate and use incentive spirometer Physician Pension Examiner note has been reviewed by physician. Signing provider agrees with the documented findings, assessment, and plan of care. Objective - Vital Signs Vital signs: Vital Signs Temp 98.0 F 04/28/20 07:53 Pulse 52 L 04/28/20 11:24 Resp 16 04/28/20 07:53 BP 99/61 04/28/20 07:53 Pulse Ox 98 04/28/20 07:53 Intake & Output 04/27/20 04/28/20 04/28/20 18:59 06:59 18:59 Intake Total 200 320 Balance 200 320 Weight 103.2 kg Intake: Intake, IV Titration 320 Amount Lactated Ringers 1,000 ml 320 @ 20 mls/hr IV .Q24H [facility] Rx#:[id number] Oral 200 Other: Voiding Method Toilet Toilet Toilet # Voids 2 - Labs CBC & Chem 7: 04/28/20 08:17 04/28/20 08:17 Labs: Abnormal Lab Results - Last 24 Hours (Table) 04/28/20 04/28/20 Range/Units 08:17 08:17 Hgb 10.4 L (11.4-16.0) gm/dL Hct 33.7 L (34.0-46.0) % MCHC 30.8 L (31.0-37.0) g/dL Chloride 112 H (98-107) mmol/L Glucose 100 H (74-99) mg/dL
[2020-04-28] MEDS: ENOXAPARIN 40 MG/0.4 ML SYRINGE SQ SCH (19:49)
[2020-04-28] MEDS: diphenhydrAMINE 50 MG/ML 1 ML VIAL IVP PRN (19:49)
[2020-04-28] MEDS: LITHIUM CARBONATE 300 MG CAP PO SCH (21:11)
[2020-04-28] MEDS: MONTELUKAST 10 MG TAB PO SCH (21:11)
[2020-04-28] MEDS: traZODone HCL 100 MG TAB PO SCH (21:11)
[2020-04-28] MEDS: cloNIDine HCL 0.2 MG TAB PO SCH (21:11)
--- NOTE | 2020-04-28 22:48 | P.PN ---
Subjective Progress Note Date: 04/28/20 She remains on IV decadron, feels nausea and abdominal pain are improved. Last vomited last night. Tolerating diet Objective - Vital Signs Vital signs: Vital Signs Temp 98.7 F 04/28/20 19:23 Pulse 60 04/28/20 21:19 Resp 18 04/28/20 19:23 BP 125/77 04/28/20 21:09 Pulse Ox 97 04/28/20 19:23 Intake & Output 04/28/20 04/28/20 04/29/20 06:59 18:59 06:59 Intake Total 320 1200 Balance 320 1200 Intake: Intake, IV Titration 320 1200 Amount 0.9% NaCl with KCl 20 Meq 1200 /l 1,000 ml @ 150 mls/hr IV .Q6H40M [facility] Rx#: [id number] Lactated Ringers 1,000 ml 320 @ 20 mls/hr IV .Q24H [facility] Rx#:[id number] Other: Voiding Method Toilet Toilet # Voids 2 3 2 - Exam General: obese NAD. Vitals reviewed Lungs: normal respiratory effort, no wheezes or rales CV: Regular rate and rhythm, no murmur. Peripheral pulses 2+ Abdomen: Soft, generalized tenderness Skin: warm and dry. - Labs CBC & Chem 7: 04/28/20 08:17 04/28/20 08:17 Labs: Abnormal Lab Results - Last 24 Hours (Table) 04/28/20 04/28/20 Range/Units 08:17 08:17 Hgb 10.4 L (11.4-16.0) gm/dL Hct 33.7 L (34.0-46.0) % MCHC 30.8 L (31.0-37.0) g/dL Chloride 112 H (98-107) mmol/L Glucose 100 H (74-99) mg/dL Assessment and Plan (1) Fibromyalgia Current Visit: Yes Status: Acute Code(s): M79.7 - FIBROMYALGIA SNOMED Code(s): 301040642 (2) Bipolar disorder Current Visit: Yes Status: Acute Code(s): F31.9 - BIPOLAR DISORDER, UNSPECIFIED SNOMED Code(s): 42155300 (3) Morbid obesity with BMI of 45.0-49.9, adult Current Visit: No Status: Acute Code(s): E66.01 - MORBID (SEVERE) OBESITY DUE TO EXCESS CALORIES; Z68.42 - BODY MASS INDEX (BMI) 45.0-49.9, ADULT SNOMED Code(s): 748583125 (4) Eosinophilic esophagitis Current Visit: No Status: Chronic Code(s): K20.0 - EOSINOPHILIC ESOPHAGITIS SNOMED Code(s): 200500189 Plan: Continue with current management, IV steroids, scopolamine patch. Continue home medications. Pain control
[2020-04-29] MEDS: HYOSCYAMINE ORAL DROPS 1.875 MG/15 ML BOTTLE PO PRN (00:21)
[2020-04-29] MEDS: SIMETHICONE 40 MG/0.6 ML DROPS 2,000 MG/30 ML BOTTLE PO PRN (00:21)
[2020-04-29 01:43] VITALS: RESP 16
[2020-04-29] MEDS: 0.9% NACL WITH KCL 20 MEQ/L 1,000 ML IV SCH ×2 (05:49→12:48)
[2020-04-29] MEDS: DEXAMETHASONE SOD PHOSPHATE 4 MG/ML 1 ML VIAL IV SCH ×2 (05:49→12:48)
[2020-04-29] MEDS: HYDROmorphone 0.5 MG/0.5 ML SYRINGE IVP PRN (07:33)
[2020-04-29] MEDS: PANTOPRAZOLE 40 MG/10 ML VIAL IV SCH (07:34)
[2020-04-29] MEDS: LEVOTHYROXINE 125 MCG TAB PO SCH (07:34)
[2020-04-29] MEDS: DULoxetine HCL 60 MG CAPSULE.DR PO SCH (07:34)
[2020-04-29 07:35] VITALS: BP 138/73; TEMP 97.7
[2020-04-29] MEDS: TOPIRAMATE 25 MG TAB PO SCH (07:35)
[2020-04-29] MEDS: ONDANSETRON 4 MG/2 ML VIAL IVP PRN (08:09)
[2020-04-29] MEDS: ALBUTEROL NEBULIZED 2.5 MG/3 ML INHALATION SCH ×2 (08:42→11:33)
--- NOTE | 2020-04-29 10:08 | CDI ---
Documentation Clarification Form Date: 04/29/2020 09:39:15 AM From: Jordyn Umanzor RN, CCDS Phone: [phone] Admit Date: 04/26/2020 07:41:00 AM Patient Name: Chana Alamo Visit Number: [id number] Discharge Date: ATTENTION: The Clinical Documentation Specialists (CDI) and [facility] Coding Staff appreciate your assistance in clarifying documentation. Please respond to the clarification below the line at the bottom and electronically sign. The CDI & [facility] Coding staff will review the response and follow-up if needed. Please note: Queries are made part of the Legal Health Record. If you have any questions, please contact the author of this message via ITS. Dr. Sylvester James 04/27 progress note and upper GI series has [id number] partial obstruction noted at the surgical site. Please provide further specificity of this finding. Patients Admitting Diagnosis: Morbid obesity Post-Operative Diagnosis: Same Procedure performed: Laparoscopic sleeve gastrectomy History/Risk Factors: Morbid obesity, Esophagitis, IBS, Gastroporesis, Clinical Indicators: 24-year-old female with history of morbid obesity present for elective sleeve gastrectomy. On post operative day # 1 she complains of abdominal pain, nausea and vomiting. 04/27 Vital signs at 14:48: 127/77 86 20. 8/12 Labs: WBC 15.9 HGB 10.9, HCT 35.6 Treatment: Zofran 4 mg IVP 6 PRN Protonix 40 mg IV daily Scopolamine Patch as needed Decadron 4 mg IV q 6 hrs In order to accurately reflect this patients severity of illness, please clarify if the [id number] partial obstruction noted at the surgical site: has been ruled out is a complication of surgical procedure is an expected outcome of the surgical procedure is related to co-morbid condition(s) of Other please specify Unable to determine (Last Revision: October 2019) Expected outcome of surgical procedure MTDD
[2020-04-29] MEDS: NORGESTIMATE ETHINYL ESTRADIOL PO SCH (10:55)
--- NOTE | 2020-04-29 10:55 | P.DS ---
Providers Date of admission: 04/26/20 07:41 Expected date of discharge: 04/29/20 Attending physician: Sylvester James Consults: 04/26/20 10:27 Consult Physician Routine Consulting Provider: Lon Goldberg Consult Reason/Comments: Medical management Do you want consulting provider notified?: Yes Primary care physician: Marysol Rose Hospital Course: Discharge diagnosis 1. Morbid obesity status post laparoscopic sleeve gastrectomy 2. Moderate to severe partial obstruction noted on upper GI is an expected surgical finding. Patient treated with Decadron. Hospital course This is a 24-year-old female with a known history of morbid obesity she underwent laparoscopic sleeve gastrectomy with Dr. James. She tolerated surgery well. She is tolerating her clear liquid diet. She is passing gas and having bowel movements. She has been up and ambulating without difficulty. She is stable for discharge home. She'll follow-up with Dr. [facility] in one week. Physician Band Saw Operator Cake Cutting note has been reviewed by physician. Signing provider agrees with the documented findings, assessment, and plan of care. Patient Condition at Discharge: Stable Plan - Discharge Summary Discharge Rx Participant: Yes New Discharge Prescriptions: New Sucralfate [Carafate] 1 gm PO BID #500 ml Hydrocodone/Acetaminophen [[place] 5-325] 1 tab PO Q6HR PRN 3 Days #12 tab PRN Reason: Pain Omeprazole [PriLOSEC] 40 mg PO DAILY #30 cap Continue [place] Carbonate 900 mg PO DAILY Levothyroxine Sodium [Synthroid] 125 mcg PO QAM Montelukast [Singulair] 10 mg PO HS Potassium Chloride [K-Tab ER] 10 meq PO DAILY Famotidine [Pepcid] 20 mg PO BID Norgestimate-Ethinyl Estradiol [Sprintec 28 Day Tablet] 1 tab PO DAILY cloNIDine HCL [Catapres] 0.2 mg PO HS Flunisolide [Aerospan] 2 puff INHALATION RT-BID PRN PRN Reason: Dyspnea Prochlorperazine [Compazine] 10 mg PO Q4H PRN PRN Reason: Nausea And Vomiting DULoxetine HCL [Cymbalta] 60 mg PO BID EPINEPHrine (Auto Inject) [Epipen] 0.3 mg IM DAILY PRN PRN Reason: Allergic Reaction Loratadine [Claritin] 10 mg PO DAILY traZODone HCL 200 mg PO HS Topiramate [Topiramate ER] 100 mg PO DAILY Discontinued Omeprazole [PriLOSEC] 60 mg PO QAM Ergocalciferol [Vitamin D2 (DRISDOL)] 50,000 unit PO BELL Vitamin C/Biotin [Hair, Skin and Nails] 1 tab PO DAILY Multivitamins, Thera [Multivitamin (formulary)] 1 tab PO DAILY Discharge Medication List [place] Carbonate 900 mg PO DAILY 08/27/15 [History] Levothyroxine Sodium [Synthroid] 125 mcg PO QAM 01/06/17 [History] Montelukast [Singulair] 10 mg PO HS 05/21/17 [History] Potassium Chloride [K-Tab ER] 10 meq PO DAILY 09/14/17 [History] Famotidine [Pepcid] 20 mg PO BID 02/04/18 [History] Norgestimate-Ethinyl Estradiol [Sprintec 28 Day Tablet] 1 tab PO DAILY 02/04/18 [History] DULoxetine HCL [Cymbalta] 60 mg PO BID 01/19/19 [History] EPINEPHrine (Auto Inject) [Epipen] 0.3 mg IM DAILY PRN 01/19/19 [History] Flunisolide [Aerospan] 2 puff INHALATION RT-BID PRN 01/19/19 [History] Prochlorperazine [Compazine] 10 mg PO Q4H PRN 01/19/19 [History] cloNIDine HCL [Catapres] 0.2 mg PO HS 01/19/19 [History] Loratadine [Claritin] 10 mg PO DAILY 05/26/19 [History] traZODone HCL 200 mg PO HS 10/19/19 [History] Topiramate [Topiramate ER] 100 mg PO DAILY 04/26/20 [History] Hydrocodone/Acetaminophen [[place] 5-325] 1 tab PO Q6HR PRN 3 Days #12 tab [Rx] Omeprazole [PriLOSEC] 40 mg PO DAILY #30 cap 04/29/20 [Rx] Sucralfate [Carafate] 1 gm PO BID #500 ml 04/29/20 [Rx] [facility] [facility] Patient Instructions/Handouts: *Surgery [facility] - Scopalamine Patch Instructions Activity/Diet/Wound Care/Special Instructions: No driving while taking [place] No lifting over 10 pounds You may shower. No soaking or tub baths for 2 weeks Very light activity until you are reevaluated at your follow up appointment with your surgeon Discharge Disposition: HOME SELF-CARE
[2020-04-29] MEDS: diphenhydrAMINE 50 MG/ML 1 ML VIAL IVP PRN (10:56)
[2020-04-29 11:47] VITALS: PULSE 62
== END 2020-04-29 14:55 | disposition home or self-care (01) | DRG 621 ==
LOC: 2ORMAIN 07:41 → 4SSUR 15:00
PROVIDERS: ADMIT Surgery; ATTEND Surgery
PROC: 0DB64Z3 Excision of Stomach, Percutaneous Endoscopic Approach, Vertical (ICD-10-PCS; principal; 2020-04-26 08:50)
DX: E66.01 Morbid (severe) obesity due to excess calories (principal); Z68.41 Body mass index [BMI] 40.0-44.9, adult; K74.60 Unspecified cirrhosis of liver; F31.9 Bipolar disorder, unspecified; J45.909 Unspecified asthma, uncomplicated; B19.20 Unspecified viral hepatitis C without hepatic coma; K21.9 Gastro-esophageal reflux disease without esophagitis; E03.9 Hypothyroidism, unspecified; K58.9 Irritable bowel syndrome, unspecified; M79.7 Fibromyalgia; G43.909 Migraine, unspecified, not intractable, without status migrainosus; K31.89 Other diseases of stomach and duodenum; F43.10 Post-traumatic stress disorder, unspecified; F41.9 Anxiety disorder, unspecified; K20.0 Eosinophilic esophagitis; G47.00 Insomnia, unspecified; K31.84 Gastroparesis; Z71.3 Dietary counseling and surveillance; Z98.890 Other specified postprocedural states; Z79.890 Hormone replacement therapy; Z79.899 Other long term (current) drug therapy; Z87.19 Personal history of other diseases of the digestive system; Z90.49 Acquired absence of other specified parts of digestive tract; Z91.040 Latex allergy status; Z88.5 Allergy status to narcotic agent; Z88.0 Allergy status to penicillin; Z91.013 Allergy to seafood; Z88.8 Allergy status to other drugs, medicaments and biological substances; Z91.018 Allergy to other foods; Z82.5 Family history of asthma and other chronic lower respiratory diseases; Z83.79 Family history of other diseases of the digestive system; Z82.49 Family history of ischemic heart disease and other diseases of the circulatory system
CPT/HCPCS: 74240; 80048; 80051; 81025; 82310; 82565; 83735; 84100; 84520; 85025; 85027; 88307; 94640; 94760; 94762

== ENCOUNTER 2020-04-30 13:00 | Inpatient (IN) | payer OTHER ==
[2020-04-30] MEDS ORDERED: ONDANSETRON 4 MG/2 ML VIAL IVP STA (13:23)
[2020-04-30] MEDS ORDERED: MORPHINE SULFATE 4 MG/ML SYRINGE IV STA (13:23)
[2020-04-30] MEDS ORDERED: SODIUM CHLORIDE 0.9% 1,000 ML IV STA (13:23)
--- NOTE | 2020-04-30 13:53 | ED ---
General Adult HPI - General Chief complaint: Nausea/Vomiting/Diarrhea Stated complaint: Post Op Complications Time Seen by Provider: 04/30/20 13:07 Source: patient, RN notes reviewed, old records reviewed Mode of arrival: wheelchair Limitations: no limitations - History of Present Illness Initial comments: 24-year-old female presents for evaluation of nausea vomiting. Patient is 4 days status post gastric sleeve. She was discharged home yesterday. She's been vomiting throughout the past 24 hours. She has some abdominal pain but states this is unchanged from her postoperative pain. She has been taking [place]. She states she is passing gas and had a normal bowel movement while in the hospital. No fever. No chest pain or dyspnea. - Related Data Home Medications Medication Instructions Recorded Confirmed [place] Carbonate 900 mg PO DAILY 08/27/15 04/26/20 Levothyroxine Sodium [Synthroid] 125 mcg PO QAM 01/06/17 04/21/20 Montelukast [Singulair] 10 mg PO HS 05/21/17 04/26/20 Potassium Chloride [K-Tab ER] 10 meq PO DAILY 09/14/17 04/21/20 Famotidine [Pepcid] 20 mg PO BID 02/04/18 04/26/20 Norgestimate-Ethinyl Estradiol 1 tab PO DAILY 02/04/18 04/21/20 [Sprintec 28 Day Tablet] DULoxetine HCL [Cymbalta] 60 mg PO BID 01/19/19 04/21/20 EPINEPHrine (Auto Inject) [Epipen] 0.3 mg IM DAILY PRN 01/19/19 04/21/20 Flunisolide [Aerospan] 2 puff INHALATION RT-BID PRN 01/19/19 04/26/20 Prochlorperazine [Compazine] 10 mg PO Q4H PRN 01/19/19 04/26/20 cloNIDine HCL [Catapres] 0.2 mg PO HS 01/19/19 04/21/20 Loratadine [Claritin] 10 mg PO DAILY 05/26/19 04/21/20 traZODone HCL 200 mg PO HS 10/19/19 04/21/20 Topiramate [Topiramate ER] 100 mg PO DAILY 04/26/20 04/26/20 Previous Rx's Medication Instructions Recorded Hydrocodone/Acetaminophen [[place] 1 tab PO Q6HR PRN 3 Days #12 tab 04/29/20 5-325] Omeprazole [PriLOSEC] 40 mg PO DAILY #30 cap 04/29/20 Sucralfate [Carafate] 1 gm PO BID #500 ml 04/29/20 Allergies Allergy/AdvReac Type Severity Reaction Status Date / Time fentanyl Allergy Rash/Hives Verified 04/30/20 13:04 latex Allergy Rash/Hives Verified 04/30/20 13:04 metoclopramide [From Reglan] Allergy Unknown Verified 04/30/20 13:04 Penicillins Allergy Anaphylaxis Verified 04/30/20 13:04 ibuprofen [From Motrin] AdvReac GI Bleed Verified 04/30/20 13:04 prazosin AdvReac Nausea & Verified 04/30/20 13:04 Vomiting grape juice Allergy Anaphylaxis Uncoded 04/30/20 13:04 Seafood Allergy Anaphylaxis Uncoded 04/30/20 13:04 Review of Systems ROS Statement: Those systems with pertinent positive or pertinent negative responses have been documented in the HPI. ROS Other: All systems not noted in ROS Statement are negative. Past Medical History Past Medical History: Asthma, Chest Pain / Angina, Fibromyalgia, GERD/Reflux, Liver Disease, Thyroid Disorder Additional Past Medical History / Comment(s): Cirrhosis of the liver and hepatitis C (pt states these are partly due to her genetics and partly due to mental health medications she has been taking since age 4), Esophagitis. IBS. PART OF STOMACH NON-FUNCTIONING. BLOOD IN STOOL, 04/08 pt reports VOMITING DAILY due to abdominal pain and migraines (vomited blood 1 week ago)., "fast heart beat", gastroporesis, on actos till 1 week ago-wasn't taking for diabetes History of Any Multi-Drug Resistant Organisms: None Reported Past Surgical History: Appendectomy, Cholecystectomy, Tonsillectomy Additional Past Surgical History / Comment(s): NASAL Septum repair. COLONOSCOPY., Past Anesthesia/Blood Transfusion Reactions: Motion Sickness Additional Past Anesthesia/Blood Transfusion Reaction / Comment(s): woke up once during surgery Past Psychological History: Anxiety, Depression, PTSD Smoking Status: Never smoker Past Alcohol Use History: None Reported Past Drug Use History: None Reported - Past Family History Mother Family Medical History: No Reported History Father Family Medical History: Liver Disease Additional Family Medical History / Comment(s): at age 61 from COPD. ALso had cirrhosis,hepatitis C, pancreatitis, heart attacks (multiple) and esophagus disease General Exam Limitations: no limitations General appearance: alert, in no apparent distress Head exam: Present: atraumatic, normocephalic Eye exam: Present: normal appearance, PERRL ENT exam: Present: normal exam Neck exam: Present: normal inspection. Absent: tenderness, meningismus Respiratory exam: Present: normal lung sounds bilaterally. Absent: respiratory distress, wheezes Cardiovascular Exam: Present: regular rate, normal rhythm GI/Abdominal exam: Present: soft, tenderness, other (Minimal generalized tenderness, incisions are healing appropriately, no induration, no purulence). Absent: distended Extremities exam: Present: normal inspection, normal capillary refill. Absent: pedal edema Neurological exam: Present: alert, oriented X3 Psychiatric exam: Present: normal affect, normal mood Skin exam: Present: warm, dry, intact. Absent: cyanosis, diaphoretic Course Vital Signs 04/30/20 13:02 Temperature 98.8 F Pulse Rate 87 Respiratory 18 Rate Blood Pressure 116/63 O2 Sat by Pulse 97 Oximetry Medical Decision Making - Medical Decision Making 24-year-old female 4 days postop gastric sleeve presenting with nausea vomiting. Patient has minimal abdominal pain, seems appropriate postoperative pain. Incisions are clean and dry appropriate healing. Vitals are stable. She has mild leukocytosis at 11, stable hemoglobin, normal electrolytes, she does have a mild transaminitis which is effectively baseline for this patient. I did give her IV fluids, morphine and Zofran in the emergency department. She will be kept in observation for symptomatic control and IV hydration. Case discussed with Dr. James who will accept. - Lab Data Result diagrams: 04/30/20 13:58 04/30/20 13:58 Lab Results 04/30/20 04/30/20 Range/Units 13:58 13:58 WBC 11.5 H (3.8-10.6) k/uL RBC 4.93 (3.80-5.40) m/uL Hgb 12.4 (11.4-16.0) gm/dL Hct 40.1 (34.0-46.0) % MCV 81.5 (80.0-100.0) fL MCH 25.2 (25.0-35.0) pg MCHC 30.9 L (31.0-37.0) g/dL RDW 14.7 (11.5-15.5) % Plt Count 306 (150-450) k/uL Neutrophils % 69 % Lymphocytes % 23 % Monocytes % 4 % Eosinophils % 4 % Basophils % 0 % Neutrophils # 7.9 H (1.3-7.7) k/uL Lymphocytes # 2.6 (1.0-4.8) k/uL Monocytes # 0.5 (0-1.0) k/uL Eosinophils # 0.4 (0-0.7) k/uL Basophils # 0.0 (0-0.2) k/uL Hypochromasia Slight Sodium 138 (137-145) mmol/L Potassium 4.4 (3.5-5.1) mmol/L Chloride 107 (98-107) mmol/L Carbon Dioxide 21 L (22-30) mmol/L Anion Gap 10 mmol/L BUN 12 (7-17) mg/dL Creatinine 0.70 (0.52-1.04) mg/dL Est GFR (CKD-EPI)AfAm >90 (>60 ml/min/1.73 sqM) Est GFR (CKD-EPI)NonAf >90 (>60 ml/min/1.73 sqM) Glucose 90 (74-99) mg/dL Calcium 9.7 (8.4-10.2) mg/dL Total Bilirubin 0.5 (0.2-1.3) mg/dL AST 95 H (14-36) U/L ALT 186 H (4-34) U/L Alkaline Phosphatase 76 (38-126) U/L Total Protein 7.7 (6.3-8.2) g/dL Albumin 4.2 (3.5-5.0) g/dL Disposition Clinical Impression: Nausea & vomiting, History of sleeve gastrectomy Disposition: ADMITTED IP TO THIS [facility] Condition: Stable Is patient prescribed a controlled substance at d/c from ED?: No Referrals: Marysol Rose DO [Primary Care Provider] - 1-2 days Decision to Admit Reason: Admit from EC Decision Date: 04/30/20 Decision Time: 14:25
[2020-04-30 14:06] LABS: Basophils % (A) 0 %; Eosinophils # (A) 0.4 k/uL (0-0.7); Eosinophils % (A) 4 %; HCT 40.1 % (34.0-46.0); HGB 12.4 gm/dL (11.4-16.0); Hypochromasia Slight; Lymphocytes # (A) 2.6 k/uL (1.0-4.8); Lymphocytes % (A) 23 %; MCH 25.2 pg (25.0-35.0); MCHC 30.9 g/dL (31.0-37.0); MCV 81.5 fL (80.0-100.0); Mean Platelet Volume 8.5; Monocytes # (A) 0.5 k/uL (0-1.0); Monocytes % (A) 4 %; Neutrophils # (A) 7.9 k/uL (1.3-7.7); Neutrophils % (A) 69 %; Platelet Count 306 k/uL (150-450); RBC 4.93 m/uL (3.80-5.40); RDW 14.7 % (11.5-15.5); WBC 11.5 k/uL (3.8-10.6)
[2020-04-30 14:16] LABS: ALT 186 U/L (4-34); AST 95 U/L (14-36); African American GFR (CKD) >90 (>60 ml/min/1.73 sqM); Albumin 4.2 g/dL (3.5-5.0); Alkaline Phosphatase 76 U/L (38-126); Anion Gap 10 mmol/L; Blood Urea Nitrogen 12 mg/dL (7-17); Calcium 9.7 mg/dL (8.4-10.2); Carbon Dioxide 21 mmol/L (22-30); Chloride 107 mmol/L (98-107); Glucose 90 mg/dL (74-99); Non-African American GFR(CKD) >90 (>60 ml/min/1.73 sqM); Potassium 4.4 mmol/L (3.5-5.1); Sodium 138 mmol/L (137-145); Total Bilirubin 0.5 mg/dL (0.2-1.3); Total Protein 7.7 g/dL (6.3-8.2)
[2020-04-30] MEDS ORDERED: NALOXONE 0.4 MG/ML 1 ML VIAL IV PRN (14:22)
[2020-04-30] MEDS: SODIUM CHLORIDE 0.9% 1,000 ML IV SCH ×2 (14:54→23:32)
[2020-04-30] MEDS: ONDANSETRON 4 MG/2 ML VIAL IVP PRN (19:53)
[2020-04-30] MEDS: MORPHINE SULFATE 4 MG/ML SYRINGE IV PRN (20:58)
[2020-04-30] MEDS: PANTOPRAZOLE 40 MG/10 ML VIAL IVP SCH (22:12)
[2020-05-01] MEDS: MORPHINE SULFATE 4 MG/ML SYRINGE IV PRN ×5 (00:16→20:33)
[2020-05-01] MEDS: ONDANSETRON 4 MG/2 ML VIAL IVP PRN ×3 (04:18→20:32)
[2020-05-01] MEDS: SODIUM CHLORIDE 0.9% 1,000 ML IV SCH ×2 (09:09→20:36)
[2020-05-01] MEDS: PANTOPRAZOLE 40 MG/10 ML VIAL IVP SCH (09:09)
[2020-05-01] MEDS ORDERED: PROCHLORPERAZINE 10 MG TAB PO PRN (09:24)
[2020-05-01] MEDS ORDERED: SUMAtriptan succinate 50 MG TAB PO PRN (09:24)
[2020-05-01] MEDS ORDERED: FLUNISOLIDE INHALATION PRN (09:24)
[2020-05-01] MEDS ORDERED: NON FORMULARY DRUG (Omeprazole 40 MG) PO SCH (09:30)
[2020-05-01] MEDS: LITHIUM CARBONATE 300 MG CAP PO SCH ×2 (10:23→20:38)
[2020-05-01] MEDS: DULoxetine HCL 60 MG CAPSULE.DR PO SCH ×2 (10:24→21:15)
[2020-05-01] MEDS: LORATADINE 10 MG TAB PO SCH (10:24)
[2020-05-01] MEDS: SUCRALFATE 1 GM TAB PO SCH ×2 (10:24→21:15)
[2020-05-01] MEDS: LEVOTHYROXINE 125 MCG TAB PO SCH (10:24)
[2020-05-01] MEDS: POTASSIUM CHLORIDE ER 10 MEQ TAB.ER.PRT PO SCH (10:24)
--- NOTE | 2020-05-01 11:55 | P.GSHP ---
History of Present Illness H&P Date: 05/01/20 Chief Complaint: Nausea This a 24-year-old female who underwent laparoscopic sleeve gastrectomy this week. Patient was admitted through the emergency room complaints of nausea and some vomiting. Currently the patient states she feels better. She denies any significant nausea. Past Medical History Past Medical History: Asthma, Chest Pain / Angina, Fibromyalgia, GERD/Reflux, Liver Disease, Thyroid Disorder Additional Past Medical History / Comment(s): Cirrhosis of the liver and hepatitis C (pt states these are partly due to her genetics and partly due to mental health medications she has been taking since age 4), Esophagitis. IBS. PART OF STOMACH NON-FUNCTIONING. BLOOD IN STOOL, 04/08 pt reports VOMITING DAILY due to abdominal pain and migraines (vomited blood 1 week ago)., "fast heart beat", gastroporesis, on actos till 1 week ago-wasn't taking for diabetes History of Any Multi-Drug Resistant Organisms: None Reported Past Surgical History: Appendectomy, Bariatric Surgery, Cholecystectomy, Tonsillectomy Additional Past Surgical History / Comment(s): NASAL Septum repair. COLONOSCOPY., Past Anesthesia/Blood Transfusion Reactions: Motion Sickness Additional Past Anesthesia/Blood Transfusion Reaction / Comment(s): woke up once during surgery Past Psychological History: Anxiety, Depression, PTSD Additional Psychological History / Comment(s): 04/20/19: Takes [place] and Cymbalta daily Smoking Status: Never smoker Past Alcohol Use History: None Reported Past Drug Use History: None Reported - Past Family History Mother Family Medical History: No Reported History Father Family Medical History: Liver Disease Additional Family Medical History / Comment(s): at age 61 from COPD. ALso had cirrhosis,hepatitis C, pancreatitis, heart attacks (multiple) and esophagus disease Medications and Allergies Home Medications Medication Instructions Recorded Confirmed Type [place] Carbonate 300 mg PO QAM 08/27/15 04/30/20 History Levothyroxine Sodium [Synthroid] 125 mcg PO QAM 01/06/17 04/30/20 History Montelukast [Singulair] 10 mg PO HS 05/21/17 04/30/20 History Potassium Chloride [K-Tab ER] 10 meq PO DAILY 09/14/17 04/30/20 History Famotidine [Pepcid] 20 mg PO BID 02/04/18 04/30/20 History Norgestimate-Ethinyl Estradiol 1 tab PO DAILY 02/04/18 04/30/20 History [Sprintec 28 Day Tablet] DULoxetine HCL [Cymbalta] 60 mg PO BID 01/19/19 04/30/20 History EPINEPHrine (Auto Inject) [Epipen] 0.3 mg IM DAILY PRN 01/19/19 04/30/20 History Flunisolide [Aerospan] 2 puff INHALATION RT-BID PRN 01/19/19 04/30/20 History Prochlorperazine [Compazine] 10 mg PO TID PRN 01/19/19 04/30/20 History cloNIDine HCL [Catapres] 0.2 mg PO HS 01/19/19 04/30/20 History Loratadine [Claritin] 10 mg PO DAILY 05/26/19 04/30/20 History Topiramate [Topiramate ER] 100 mg PO DAILY 04/26/20 04/30/20 History Hydrocodone/Acetaminophen [[place] 1 tab PO Q6HR PRN 3 Days #12 tab 04/29/20 04/30/20 Rx 5-325] Omeprazole [PriLOSEC] 40 mg PO DAILY #30 cap 04/29/20 04/30/20 Rx Sucralfate [Carafate] 1 gm PO BID #500 ml 04/29/20 04/30/20 Rx [place] Carbonate 600 mg PO HS 04/30/20 04/30/20 History Rizatriptan Benzoate [Rizatriptan] 10 mg PO DAILY PRN 04/30/20 04/30/20 History traZODone HCL [Desyrel] 200 mg PO HS 04/30/20 04/30/20 History Allergies Allergy/AdvReac Type Severity Reaction Status Date / Time fentanyl Allergy Rash/Hives Verified 04/30/20 17:30 latex Allergy Rash/Hives Verified 04/30/20 17:30 metoclopramide [From Reglan] Allergy Unknown Verified 04/30/20 17:30 Penicillins Allergy Anaphylaxis Verified 04/30/20 17:30 ibuprofen [From Motrin] AdvReac GI Bleed Verified 04/30/20 17:30 prazosin AdvReac Nausea & Verified 04/30/20 17:30 Vomiting grape juice Allergy Anaphylaxis Uncoded 04/30/20 13:04 Seafood Allergy Anaphylaxis Uncoded 04/30/20 13:04 Surgical - Exam Vital Signs Temp Pulse Resp BP Pulse Ox 98.8 F 87 18 116/63 97 04/30/20 13:02 04/30/20 13:02 04/30/20 13:02 04/30/20 13:02 04/30/20 13:02 - General well developed, well nourished, no distress - Eyes PERRL - ENT normal pinna - Neck no masses - Respiratory normal expansion - Cardiovascular Rhythm: regular - Abdomen Abdomen: soft, non tender Results - Labs 04/30/20 13:58 04/30/20 13:58 Abnormal Lab Results - Last 24 Hours (Table) 04/30/20 04/30/20 Range/Units 13:58 13:58 WBC 11.5 H (3.8-10.6) k/uL MCHC 30.9 L (31.0-37.0) g/dL Neutrophils # 7.9 H (1.3-7.7) k/uL Carbon Dioxide 21 L (22-30) mmol/L AST 95 H (14-36) U/L ALT 186 H (4-34) U/L Diabetes panel 04/30/20 Range/Units 13:58 Sodium 138 (137-145) mmol/L Potassium 4.4 (3.5-5.1) mmol/L Chloride 107 (98-107) mmol/L Carbon Dioxide 21 L (22-30) mmol/L BUN 12 (7-17) mg/dL Creatinine 0.70 (0.52-1.04) mg/dL Glucose 90 (74-99) mg/dL Calcium 9.7 (8.4-10.2) mg/dL AST 95 H (14-36) U/L ALT 186 H (4-34) U/L Alkaline Phosphatase 76 (38-126) U/L Total Protein 7.7 (6.3-8.2) g/dL Albumin 4.2 (3.5-5.0) g/dL Calcium panel 04/30/20 Range/Units 13:58 Calcium 9.7 (8.4-10.2) mg/dL Albumin 4.2 (3.5-5.0) g/dL Pituitary panel 04/30/20 Range/Units 13:58 Sodium 138 (137-145) mmol/L Potassium 4.4 (3.5-5.1) mmol/L Chloride 107 (98-107) mmol/L Carbon Dioxide 21 L (22-30) mmol/L BUN 12 (7-17) mg/dL Creatinine 0.70 (0.52-1.04) mg/dL Glucose 90 (74-99) mg/dL Calcium 9.7 (8.4-10.2) mg/dL Adrenal panel 04/30/20 Range/Units 13:58 Sodium 138 (137-145) mmol/L Potassium 4.4 (3.5-5.1) mmol/L Chloride 107 (98-107) mmol/L Carbon Dioxide 21 L (22-30) mmol/L BUN 12 (7-17) mg/dL Creatinine 0.70 (0.52-1.04) mg/dL Glucose 90 (74-99) mg/dL Calcium 9.7 (8.4-10.2) mg/dL Total Bilirubin 0.5 (0.2-1.3) mg/dL AST 95 H (14-36) U/L ALT 186 H (4-34) U/L Alkaline Phosphatase 76 (38-126) U/L Total Protein 7.7 (6.3-8.2) g/dL Albumin 4.2 (3.5-5.0) g/dL Assessment and Plan Assessment: Nausea vomiting. Patient status post sleeve gastrectomy. She'll be fluid hydrated. She will remain on clear liquids. Her psychiatric medications will be restarted.
[2020-05-01] MEDS: TOPIRAMATE 25 MG TAB PO SCH ×2 (12:26→21:15)
[2020-05-01] MEDS: FAMOTIDINE 20 MG TAB PO SCH ×2 (15:18→21:15)
[2020-05-01] MEDS: norgestimate-ethinyl estradioL 1 EACH TABLET PO SCH (15:20)
[2020-05-01] MEDS: traZODone HCL 100 MG TAB PO SCH (20:32)
[2020-05-01] MEDS: cloNIDine HCL 0.2 MG TAB PO SCH (21:01)
[2020-05-01] MEDS: MONTELUKAST 10 MG TAB PO SCH (21:01)
[2020-05-02] MEDS: MORPHINE SULFATE 4 MG/ML SYRINGE IV PRN ×5 (03:26→21:37)
[2020-05-02] MEDS: SODIUM CHLORIDE 0.9% 1,000 ML IV SCH ×2 (06:08→18:21)
[2020-05-02] MEDS: LEVOTHYROXINE 125 MCG TAB PO SCH (06:08)
[2020-05-02] MEDS: LITHIUM CARBONATE 300 MG CAP PO SCH ×2 (07:17→21:30)
[2020-05-02] MEDS: SUCRALFATE 1 GM TAB PO SCH ×2 (07:17→21:29)
[2020-05-02] MEDS: FAMOTIDINE 20 MG TAB PO SCH ×2 (07:17→21:30)
[2020-05-02] MEDS: DULoxetine HCL 60 MG CAPSULE.DR PO SCH ×2 (07:17→21:30)
[2020-05-02] MEDS: PANTOPRAZOLE 40 MG/10 ML VIAL IVP SCH (07:18)
[2020-05-02] MEDS: LORATADINE 10 MG TAB PO SCH (07:18)
[2020-05-02] MEDS: TOPIRAMATE 25 MG TAB PO SCH ×2 (07:18→21:29)
[2020-05-02] MEDS: POTASSIUM CHLORIDE ER 10 MEQ TAB.ER.PRT PO SCH (07:18)
[2020-05-02] MEDS: norgestimate-ethinyl estradioL 1 EACH TABLET PO SCH (07:18)
[2020-05-02 07:49] LABS: Basophils % (A) 0 %; Eosinophils # (A) 0.6 k/uL (0-0.7); Eosinophils % (A) 5 %; HCT 40.8 % (34.0-46.0); HGB 12.2 gm/dL (11.4-16.0); Hypochromasia Marked; Lymphocytes # (A) 4.3 k/uL (1.0-4.8); Lymphocytes % (A) 36 %; MCH 25.3 pg (25.0-35.0); MCV 84.2 fL (80.0-100.0); Mean Platelet Volume 8.3; Monocytes # (A) 0.5 k/uL (0-1.0); Monocytes % (A) 5 %; Neutrophils # (A) 6.3 k/uL (1.3-7.7); Neutrophils % (A) 53 %; Platelet Count 288 k/uL (150-450); RBC 4.84 m/uL (3.80-5.40); RDW 14.6 % (11.5-15.5); WBC 11.9 k/uL (3.8-10.6)
[2020-05-02] MEDS: ONDANSETRON 4 MG/2 ML VIAL IVP PRN ×2 (09:04→21:43)
--- NOTE | 2020-05-02 14:37 | P.PN ---
Subjective Progress Note Date: 05/02/20 CHIEF COMPLAINT: Nausea and vomiting HISTORY OF PRESENT ILLNESS: Patient is status post laparoscopic sleeve gastrectomy earlier this week. She'll return to the emergency room with nausea and vomiting. Today she reports feeling better. She's had no further vomiting. She was able to have a bowel movement. History of walking she had some dizziness this has now resolved. Patient is afebrile. WBC 11.9. AST 95 ALT 186 PHYSICAL EXAM: VITAL SIGNS: Reviewed. GENERAL: Well-developed in no acute distress. HEENT: No sclera icterus. Extraocular movements grossly intact. Moist buccal mucosa. Head is atraumatic, normocephalic. ABDOMEN: Soft. Obese. Mild tenderness to palpation. Incision sites clean dry and intact NEUROLOGIC: Alert and oriented. Cranial nerves II through XII grossly intact. ASSESSMENT: 1. Nausea and vomiting 2. Status post laparoscopic sleeve gastrectomy PLAN: -Advance diet to a bariatric full liquids -Consult medicine for medical management -Encourage patient to ambulate -Anticipate discharge home tomorrow Physician Supervisor [place]asting note has been reviewed by physician. Signing provider agrees with the documented findings, assessment, and plan of care. Objective - Vital Signs Vital signs: Vital Signs Temp 98.2 F 05/02/20 14:09 Pulse 79 05/02/20 14:09 Resp 13 05/02/20 14:09 BP 123/76 05/02/20 14:09 Pulse Ox 96 05/02/20 14:09 Intake & Output 05/01/20 05/02/20 05/02/20 18:59 06:59 18:59 Intake Total 1290 800 Balance 1290 800 Intake: Intake, IV Titration 800 800 Amount Sodium Chloride 0.9% 1, 800 800 000 ml @ 100 mls/hr IV . Q10H [facility] Rx#:[id number] Oral 490 Other: Voiding Method Toilet # Voids 3 3 # Bowel Movements 1 - Labs CBC & Chem 7: 05/02/20 07:25 04/30/20 13:58 Labs: Abnormal Lab Results - Last 24 Hours (Table) 05/02/20 Range/Units 07:25 WBC 11.9 H (3.8-10.6) k/uL MCHC 30.0 L (31.0-37.0) g/dL
[2020-05-02] MEDS: MONTELUKAST 10 MG TAB PO SCH (21:29)
[2020-05-02] MEDS: traZODone HCL 100 MG TAB PO SCH (21:30)
[2020-05-02] MEDS: cloNIDine HCL 0.2 MG TAB PO SCH (21:30)
[2020-05-03] MEDS: MORPHINE SULFATE 4 MG/ML SYRINGE IV PRN ×4 (02:23→16:02)
[2020-05-03] MEDS: SODIUM CHLORIDE 0.9% 1,000 ML IV SCH ×3 (04:10→19:48)
[2020-05-03] MEDS: LEVOTHYROXINE 125 MCG TAB PO SCH (05:40)
[2020-05-03] MEDS: POTASSIUM CHLORIDE ER 10 MEQ TAB.ER.PRT PO SCH (08:21)
[2020-05-03] MEDS: SUCRALFATE 1 GM TAB PO SCH ×2 (08:21→21:12)
[2020-05-03] MEDS: TOPIRAMATE 25 MG TAB PO SCH ×2 (08:21→21:29)
[2020-05-03] MEDS: LORATADINE 10 MG TAB PO SCH (08:21)
[2020-05-03] MEDS: DULoxetine HCL 60 MG CAPSULE.DR PO SCH ×2 (08:21→21:13)
[2020-05-03] MEDS: LITHIUM CARBONATE 300 MG CAP PO SCH ×2 (08:21→21:12)
[2020-05-03] MEDS: FAMOTIDINE 20 MG TAB PO SCH ×2 (08:21→21:13)
[2020-05-03] MEDS: PANTOPRAZOLE 40 MG/10 ML VIAL IVP SCH (08:22)
--- NOTE | 2020-05-03 08:45 | P.CONS ---
History of Present Illness - Reason for Consult Consult date: 05/02/20 - Chief Complaint nausea, vomiting - History of Present Illness Chana Alamo is a 24 yo F with PMH morbid obesity, fibromyalgia, bipolar disorder who was recently discharged after laparoscopic sleeve gastrotomy. She returned to the hospital complaining of nausea and vomiting, had tried to follow clear liquid diet at home but feels her symptoms were too much to handle. Currently she continues to complain of abdominal pain and nausea without vomiting. She denies chest pain, shortness of breath, fever, chills. Review of Systems All systems: negative Constitutional: Denies chills, Denies fever Eyes: denies blurred vision, denies pain Ears, nose, mouth and throat: Denies headache, Denies sore throat Cardiovascular: Denies chest pain, Denies shortness of breath Respiratory: Denies cough Gastrointestinal: Reports as per HPI, Reports abdominal pain, Reports nausea, Denies diarrhea, Denies vomiting Genitourinary: Denies dysuria, Denies hematuria Musculoskeletal: Denies myalgias Integumentary: Denies pruritus, Denies rash Neurological: Denies numbness, Denies weakness Psychiatric: Denies anxiety, Denies depression Endocrine: Denies fatigue, Denies weight change Past Medical History Past Medical History: Asthma, Chest Pain / Angina, Fibromyalgia, GERD/Reflux, Liver Disease, Thyroid Disorder Additional Past Medical History / Comment(s): Cirrhosis of the liver and hepatitis C (pt states these are partly due to her genetics and partly due to mental health medications she has been taking since age 4), Esophagitis. IBS. PART OF STOMACH NON-FUNCTIONING. BLOOD IN STOOL, 04/08 pt reports VOMITING DAILY due to abdominal pain and migraines (vomited blood 1 week ago)., "fast heart b eat", gastroporesis, on actos till 1 week ago-wasn't taking for diabetes History of Any Multi-Drug Resistant Organisms: None Reported Past Surgical History: Appendectomy, Bariatric Surgery, Cholecystectomy, Tonsillectomy Additional Past Surgical History / Comment(s): NASAL Septum repair. COLONOSCOPY., Past Anesthesia/Blood Transfusion Reactions: Motion Sickness Additional Past Anesthesia/Blood Transfusion Reaction / Comm: woke up once during surgery Past Psychological History: Anxiety, Depression, PTSD Additional Psychological History / Comment(s): 04/20/19: Takes [place] and Cymbalta daily Smoking Status: Never smoker Past Alcohol Use History: None Reported Past Drug Use History: None Reported - Past Family History Mother Family Medical History: No Reported History Father Family Medical History: Liver Disease Additional Family Medical History / Comment(s): at age 61 from COPD. ALso had cirrhosis,hepatitis C, pancreatitis, heart attacks (multiple) and esophagus disease Medications and Allergies Home Medications Medication Instructions Recorded Confirmed Type [place] Carbonate 300 mg PO QAM 08/27/15 04/30/20 History Levothyroxine Sodium [Synthroid] 125 mcg PO QAM 01/06/17 04/30/20 History Montelukast [Singulair] 10 mg PO HS 05/21/17 04/30/20 History Potassium Chloride [K-Tab ER] 10 meq PO DAILY 09/14/17 04/30/20 History Famotidine [Pepcid] 20 mg PO BID 02/04/18 04/30/20 History Norgestimate-Ethinyl Estradiol 1 tab PO DAILY 02/04/18 04/30/20 History [Sprintec 28 Day Tablet] DULoxetine HCL [Cymbalta] 60 mg PO BID 01/19/19 04/30/20 History EPINEPHrine (Auto Inject) [Epipen] 0.3 mg IM DAILY PRN 01/19/19 04/30/20 History Flunisolide [Aerospan] 2 puff INHALATION RT-BID PRN 01/19/19 04/30/20 History Prochlorperazine [Compazine] 10 mg PO TID PRN 01/19/19 04/30/20 History cloNIDine HCL [Catapres] 0.2 mg PO HS 01/19/19 04/30/20 History Loratadine [Claritin] 10 mg PO DAILY 05/26/19 04/30/20 History Topiramate [Topiramate ER] 100 mg PO DAILY 04/26/20 04/30/20 History Hydrocodone/Acetaminophen [[place] 1 tab PO Q6HR PRN 3 Days #12 tab 04/29/20 04/30/20 Rx 5-325] Omeprazole [PriLOSEC] 40 mg PO DAILY #30 cap 04/29/20 04/30/20 Rx Sucralfate [Carafate] 1 gm PO BID #500 ml 04/29/20 04/30/20 Rx [place] Carbonate 600 mg PO HS 04/30/20 04/30/20 History Rizatriptan Benzoate [Rizatriptan] 10 mg PO DAILY PRN 04/30/20 04/30/20 History traZODone HCL [Desyrel] 200 mg PO HS 04/30/20 04/30/20 History Allergies Allergy/AdvReac Type Severity Reaction Status Date / Time fentanyl Allergy Rash/Hives Verified 04/30/20 17:30 latex Allergy Rash/Hives Verified 04/30/20 17:30 metoclopramide [From Reglan] Allergy Unknown Verified 04/30/20 17:30 Penicillins Allergy Anaphylaxis Verified 04/30/20 17:30 ibuprofen [From Motrin] AdvReac GI Bleed Verified 04/30/20 17:30 prazosin AdvReac Nausea & Verified 04/30/20 17:30 Vomiting grape juice Allergy Anaphylaxis Uncoded 04/30/20 13:04 Seafood Allergy Anaphylaxis Uncoded 04/30/20 13:04 Physical Exam Vitals: Vital Signs Temp Pulse Resp BP Pulse Ox 05/03/20 07:38 98.4 F 94 16 110/74 95 05/03/20 01:30 97.8 F 78 20 97/62 97 05/03/20 00:00 20 05/02/20 19:31 97.7 F 88 20 127/84 96 05/02/20 14:09 98.2 F 79 13 123/76 96 Intake and Output 05/02/20 05/03/20 05/03/20 22:59 06:59 14:59 Intake Total 450 200 Balance 450 200 Intake: Oral 450 200 Other: Voiding Method Toilet # Voids 1 2 General: obese, well developed, NAD. Vitals reviewed Eyes: PERRL, EOMI, conjunctiva normal HENT: normocephalic, mucus membranes moist Neck: supple, no JVD Lungs: normal respiratory effort, no wheezes or rales CV: Regular rate and rhythm, no murmur. Peripheral pulses 2+ Abdomen: soft, nondistended, no organomegaly. generalized tenderness Lymph: no cervical or axillary LAD Skin: warm and dry. Neuro: A&Ox3, normal mood and affect Results CBC & Chem 7: 05/02/20 07:25 04/30/20 13:58 Assessment and Plan Plan: 1. Morbid obesity. S/p sleeve gastrectomy. Agree with pain control and antiemetics. Advance diet as tolerated 2. Fibromyalgia. Continue cymbalta and topamax 3. Bipolar disorder. Continue lithium 4. Insomnia. Trazodone 5. Hypothyroid
[2020-05-03 08:47] LABS: Basophils # (A) 0.1 k/uL (0-0.2); Basophils % (A) 1 %; Eosinophils # (A) 0.7 k/uL (0-0.7); Eosinophils % (A) 5 %; HCT 43.5 % (34.0-46.0); Hypochromasia Marked; Lymphocytes # (A) 5.7 k/uL (1.0-4.8); Lymphocytes % (A) 37 %; MCH 25.1 pg (25.0-35.0); MCHC 29.9 g/dL (31.0-37.0); Mean Platelet Volume 8.3; Monocytes # (A) 0.5 k/uL (0-1.0); Monocytes % (A) 4 %; Neutrophils % (A) 53 %; Platelet Count 332 k/uL (150-450); RBC 5.17 m/uL (3.80-5.40); RDW 14.6 % (11.5-15.5); WBC 15.2 k/uL (3.8-10.6)
[2020-05-03] MEDS: ONDANSETRON 4 MG/2 ML VIAL IVP PRN ×2 (08:50→21:31)
[2020-05-03 09:40] LABS: Anisocytosis (M) Present; Poikilocytosis (M) Present
[2020-05-03] MEDS: norgestimate-ethinyl estradioL 1 EACH TABLET PO SCH (11:47)
[2020-05-03] MEDS ORDERED: LEVOFLOXACIN 500MG-D5W PMX 500 MG in DEXTROSE/WATER 1 100ML.BAG IVPB SCH (13:00)
--- NOTE | 2020-05-03 13:30 | P.PN ---
Subjective Progress Note Date: 05/03/20 CHIEF COMPLAINT: Nausea and vomiting HISTORY OF PRESENT ILLNESS: Patient seen and examined with Dr. James. Patient is status post laparoscopic sleeve gastrectomy earlier this week. She'll return to the emergency room with nausea and vomiting. She still reporting some abdominal discomfort with nausea. She's had no further vomiting. She was able to have a bowel movement. History of walking she had some dizziness this has now resolved. Patient is afebrile. WBC has increased to 15.2. PHYSICAL EXAM: VITAL SIGNS: Reviewed. GENERAL: Well-developed in no acute distress. HEENT: No sclera icterus. Extraocular movements grossly intact. Moist buccal mucosa. Head is atraumatic, normocephalic. ABDOMEN: Soft. Obese. Mild tenderness to palpation. Incision sites clean dry and intact NEUROLOGIC: Alert and oriented. Cranial nerves II through XII grossly intact. ASSESSMENT: 1. Nausea and vomiting 2. Morbid obesity Status post laparoscopic sleeve gastrectomy 3. Leukocytosis PLAN: -Continue bariatric full liquids -medicine following for medical management -Encourage patient to ambulate -Due to patient's leukocytosis will add IV Levaquin 500 IV daily. Physician Inspector [place] note has been reviewed by physician. Signing provider agrees with the documented findings, assessment, and plan of care. Objective - Vital Signs Vital signs: Vital Signs Temp 98.4 F 05/03/20 07:38 Pulse 94 05/03/20 07:38 Resp 16 05/03/20 07:38 BP 110/74 05/03/20 07:38 Pulse Ox 95 05/03/20 07:38 Intake & Output 05/02/20 05/03/20 05/03/20 18:59 06:59 18:59 Intake Total 650 Balance 650 Intake: Oral 650 Other: Voiding Method Toilet # Voids 3 2 - Labs CBC & Chem 7: 05/03/20 08:28 04/30/20 13:58 Labs: Abnormal Lab Results - Last 24 Hours (Table) 05/03/20 05/03/20 Range/Units 08:28 08:28 WBC 15.2 H (3.8-10.6) k/uL MCHC 29.9 L (31.0-37.0) g/dL Neutrophils # 8.0 H (1.3-7.7) k/uL Lymphocytes # 5.7 H (1.0-4.8) k/uL C-Reactive Protein 37.3 H (<10.0) mg/L
--- NOTE | 2020-05-03 14:34 | P.PN ---
Subjective Progress Note Date: 05/03/20 Chana Alamo is a 24 yo F with PMH morbid obesity, fibromyalgia, bipolar disorder who was recently discharged after laparoscopic sleeve gastrotomy. She returned to the hospital complaining of nausea and vomiting, had tried to follow clear liquid diet at home but feels her symptoms were too much to handle. Currently she continues to complain of abdominal pain and nausea without vomiting. She denies chest pain, shortness of breath, fever, chills. 05/03/2020 complains of nausea this morning-relief with Zofran, but states tolerated protein shake last night for dinner. Maintained on IV fluid hydration. Complains of left-sided abdominal pain. Positive bowel movement yesterday. Denies chest pain, palpitations or shortness of breath. Afebrile, WBC 15.2. Maintaining O2 sats in the 90s on room air. Objective - Vital Signs Vital signs: Vital Signs Temp 98.0 F 05/03/20 13:55 Pulse 108 H 05/03/20 13:55 Resp 14 05/03/20 13:55 BP 101/69 05/03/20 13:55 Pulse Ox 97 05/03/20 13:55 Intake & Output 05/02/20 05/03/20 05/03/20 18:59 06:59 18:59 Intake Total 650 Balance 650 Intake: Oral 650 Other: Voiding Method Toilet # Voids 3 2 - Exam General: obese, well developed, NAD. Vitals reviewed Eyes: PERRL, EOMI, conjunctiva normal HENT: normocephalic, mucus membranes moist Neck: supple, no JVD Lungs: normal respiratory effort, no wheezes or rales CV: Regular rate and rhythm, no murmur. Peripheral pulses 2+ Abdomen: soft, nondistended, no organomegaly. Status post surgery, generalized tenderness Skin: warm and dry. No rashes Neuro: A&Ox3, normal mood and affect - Labs CBC & Chem 7: 05/03/20 08:28 04/30/20 13:58 Labs: Abnormal Lab Results - Last 24 Hours (Table) 05/03/20 05/03/20 Range/Units 08:28 08:28 WBC 15.2 H (3.8-10.6) k/uL MCHC 29.9 L (31.0-37.0) g/dL Neutrophils # 8.0 H (1.3-7.7) k/uL Lymphocytes # 5.7 H (1.0-4.8) k/uL C-Reactive Protein 37.3 H (<10.0) mg/L Assessment and Plan Assessment: 1. Morbid obesity. S/p sleeve gastrectomy. 2. Fibromyalgia. 3. Bipolar disorder. 4. Insomnia. 5. Hypothyroid Plan: Continue on current medication regime ,monitoring and symptomatic treatment. Maintain PPI, antiemetics. DVT prophylaxis with heparin subcu. Pain management as per surgery. Aggressive pulmonary toileting, incentive spirometer ordered. Increase ambulation as tolerated. Isolated mild tachycardia,continue to monitor, if persistent will order chest x-ray. The impression and plan of care has been dictated as directed. : I performed a history and examination of this patient, discussed the same with the dictator. I agree with the dictator's note ,documented as a scribe. Any additional findings or plans will be noted.
[2020-05-03] MEDS: HEPARIN SODIUM,PORCINE 5,000 UNIT/ML 1 ML VIAL SQ SCH ×2 (18:25→21:12)
[2020-05-03] MEDS: MONTELUKAST 10 MG TAB PO SCH (21:12)
[2020-05-03] MEDS: traZODone HCL 100 MG TAB PO SCH (21:13)
[2020-05-03] MEDS: cloNIDine HCL 0.2 MG TAB PO SCH (21:13)
[2020-05-03] MEDS: ACETAMINOPHEN TAB 325 MG TAB PO PRN (21:29)
[2020-05-04] MEDS: LEVOTHYROXINE 125 MCG TAB PO SCH (05:08)
[2020-05-04] MEDS: SODIUM CHLORIDE 0.9% 1,000 ML IV SCH ×2 (05:08→18:57)
[2020-05-04 06:53] LABS: HCT 39.4 % (34.0-46.0); HGB 11.9 gm/dL (11.4-16.0); MCH 25.4 pg (25.0-35.0); MCHC 30.2 g/dL (31.0-37.0); Mean Platelet Volume 8.2; Platelet Count 289 k/uL (150-450); RBC 4.68 m/uL (3.80-5.40); RDW 14.4 % (11.5-15.5); WBC 10.1 k/uL (3.8-10.6)
[2020-05-04 06:54] LABS: Basophils % (A) 0 %; Eosinophils # (A) 0.5 k/uL (0-0.7); Eosinophils % (A) 5 %; Hypochromasia Marked; Lymphocytes # (A) 3.9 k/uL (1.0-4.8); Lymphocytes % (A) 39 %; Monocytes # (A) 0.5 k/uL (0-1.0); Monocytes % (A) 5 %; Neutrophils % (A) 49 %
[2020-05-04 06:59] LABS: ALT 102 U/L (4-34); AST 39 U/L (14-36); African American GFR (CKD) >90 (>60 ml/min/1.73 sqM); Albumin 3.5 g/dL (3.5-5.0); Alkaline Phosphatase 76 U/L (38-126); Anion Gap 10 mmol/L; Blood Urea Nitrogen 6 mg/dL (7-17); Calcium 9.3 mg/dL (8.4-10.2); Carbon Dioxide 23 mmol/L (22-30); Chloride 107 mmol/L (98-107); Glucose 73 mg/dL (74-99); Non-African American GFR(CKD) >90 (>60 ml/min/1.73 sqM); Potassium 4.1 mmol/L (3.5-5.1); Sodium 140 mmol/L (137-145); Total Bilirubin 0.5 mg/dL (0.2-1.3); Total Protein 6.6 g/dL (6.3-8.2)
[2020-05-04] MEDS: FAMOTIDINE 20 MG TAB PO SCH ×2 (07:25→22:02)
[2020-05-04] MEDS: SUCRALFATE 1 GM TAB PO SCH ×2 (07:25→22:03)
[2020-05-04] MEDS: HEPARIN SODIUM,PORCINE 5,000 UNIT/ML 1 ML VIAL SQ SCH ×2 (07:25→22:03)
[2020-05-04] MEDS: PANTOPRAZOLE 40 MG/10 ML VIAL IVP SCH (07:26)
[2020-05-04] MEDS: POTASSIUM CHLORIDE ER 10 MEQ TAB.ER.PRT PO SCH (07:26)
[2020-05-04] MEDS: LORATADINE 10 MG TAB PO SCH (07:26)
[2020-05-04] MEDS: TOPIRAMATE 25 MG TAB PO SCH ×2 (07:26→22:17)
[2020-05-04] MEDS: DULoxetine HCL 60 MG CAPSULE.DR PO SCH ×2 (07:26→22:02)
[2020-05-04] MEDS: LITHIUM CARBONATE 300 MG CAP PO SCH ×2 (07:26→22:02)
[2020-05-04] MEDS: ACETAMINOPHEN TAB 325 MG TAB PO PRN ×2 (07:39→15:17)
[2020-05-04] MEDS: ONDANSETRON 4 MG/2 ML VIAL IVP PRN ×2 (07:52→22:01)
--- NOTE | 2020-05-04 10:03 | P.PN ---
Subjective Progress Note Date: 05/04/20 Chana Alamo is a 24 yo F with PMH morbid obesity, fibromyalgia, bipolar disorder who was recently discharged after laparoscopic sleeve gastrotomy. She returned to the hospital complaining of nausea and vomiting, had tried to follow clear liquid diet at home but feels her symptoms were too much to handle. Currently she continues to complain of abdominal pain and nausea without vomiting. She denies chest pain, shortness of breath, fever, chills. 05/03/2020 complains of nausea this morning-relief with Zofran, but states tolerated protein shake last night for dinner. Maintained on IV fluid hydration. Complains of left-sided abdominal pain. Positive bowel movement yesterday. Denies chest pain, palpitations or shortness of breath. Afebrile, WBC 15.2. Maintaining O2 sats in the 90s on room air. 05/04/2020 recently receiving Zofran, reporting nausea with emesis, sore throat. Afebrile, WBC within normal limits. Denies chest pain, palpitations or shortness of breath. Objective - Vital Signs Vital signs: Vital Signs Temp 97.9 F 05/04/20 07:00 Pulse 76 05/04/20 07:00 Resp 15 05/04/20 07:00 BP 114/81 05/04/20 07:00 Pulse Ox 99 05/04/20 07:00 Intake & Output 05/03/20 05/04/20 05/04/20 18:59 06:59 18:59 Intake Total 800 800 Output Total 25 Balance 800 775 Intake: Intake, IV Titration 800 800 Amount Sodium Chloride 0.9% 1, 800 800 000 ml @ 100 mls/hr IV . Q10H JERARDO Rx#:[id number] Output: Emesis 25 Other: # Voids 1 - Exam General: Sitting up in bed,NAD Eyes: PERRL, EOMI, conjunctiva normal HENT: normocephalic, oral mucosa mucus moist Neck: supple, no JVD Lungs: normal respiratory effort, clear to auscultation CV: Regular rate and rhythm, no murmur. Peripheral pulses 2+ Abdomen: soft, nondistended, no organomegaly. Status post surgery, generalized tenderness Skin: warm and dry. No rashes Neuro: A&Ox3, normal mood and affect - Labs CBC & Chem 7: 05/04/20 06:27 05/04/20 06:27 Labs: Abnormal Lab Results - Last 24 Hours (Table) 05/04/20 05/04/20 Range/Units 06:27 06:27 MCHC 30.2 L (31.0-37.0) g/dL BUN 6 L (7-17) mg/dL Glucose 73 L (74-99) mg/dL AST 39 H (14-36) U/L ALT 102 H (4-34) U/L Assessment and Plan Assessment: 1. Morbid obesity. S/p sleeve gastrectomy. 2. Fibromyalgia. 3. Bipolar disorder. 4. Insomnia. 5. Hypothyroid 6. Leukocytosis, in a patient with recent surgery, nausea, vomiting, reactive, resolved Plan: Continue on current medication regime ,monitoring and symptomatic treatment. Continue on PPI, antibiotics with Maalox added to med regime. Aggressive pulmonary toileting, with incentive spirometer reinforced. Increase ambulation as tolerated. Recommend remote telemetry if patient continues on Levaquin as per surgery, given patient on psych meds as well, monitor for to QT prolongation. The impression and plan of care has been dictated as directed. : I performed a history and examination of this patient, discussed the same with the dictator. I agree with the dictator's note ,documented as a scribe. Any additional findings or plans will be noted.
--- NOTE | 2020-05-04 13:09 | P.PN ---
Subjective Progress Note Date: 05/04/20 CHIEF COMPLAINT: Nausea and vomiting HISTORY OF PRESENT ILLNESS: Patient is status post laparoscopic sleeve gastrectomy earlier this week. Patient did have some nausea and vomiting. She reports improvement in her abdominal pain. Medicine has ordered Maalox. Afebrile. White count has normalized at 10.1. Pro-calcitonin 0.09 PHYSICAL EXAM: VITAL SIGNS: Reviewed. GENERAL: Well-developed in no acute distress. HEENT: No sclera icterus. Extraocular movements grossly intact. Moist buccal mucosa. Head is atraumatic, normocephalic. ABDOMEN: Soft. Obese. Mild tenderness to palpation. Incision sites clean dry and intact NEUROLOGIC: Alert and oriented. Cranial nerves II through XII grossly intact. ASSESSMENT: 1. Nausea and vomiting 2. Morbid obesity Status post laparoscopic sleeve gastrectomy 3. Leukocytosis likely reactive due to patient's recent surgery and nausea and vomiting. PLAN: -Continue bariatric full liquids -medicine following for medical management -Encourage patient to ambulate -White count has normalized. Pro-calcitonin level within normal range. We'll discontinue the Levaquin and monitor patient. -Continue GI and DVT prophylaxis Physician Activated Sludge Operator note has been reviewed by physician. Signing provider agrees with the documented findings, assessment, and plan of care. Objective - Vital Signs Vital signs: Vital Signs Temp 97.9 F 05/04/20 07:00 Pulse 76 05/04/20 08:00 Resp 15 05/04/20 08:00 BP 114/81 05/04/20 07:00 Pulse Ox 99 05/04/20 07:00 Intake & Output 05/03/20 05/04/20 05/04/20 18:59 06:59 18:59 Intake Total 800 800 Output Total 25 Balance 800 775 Intake: Intake, IV Titration 800 800 Amount Sodium Chloride 0.9% 1, 800 800 000 ml @ 100 mls/hr IV . Q10H JERARDO Rx#:[id number] Output: Emesis 25 Other: Voiding Method Toilet # Voids 1 - Labs CBC & Chem 7: 05/04/20 06:27 05/04/20 06:27 Labs: Abnormal Lab Results - Last 24 Hours (Table) 05/04/20 05/04/20 Range/Units 06:27 06:27 MCHC 30.2 L (31.0-37.0) g/dL BUN 6 L (7-17) mg/dL Glucose 73 L (74-99) mg/dL AST 39 H (14-36) U/L ALT 102 H (4-34) U/L
[2020-05-04] MEDS: MAG HYDROX/AL HYDROX/SIMETH 30 ML CUP PO SCH ×3 (15:16→22:02)
[2020-05-04] MEDS: norgestimate-ethinyl estradioL 1 EACH TABLET PO SCH (16:44)
[2020-05-04] MEDS: cloNIDine HCL 0.2 MG TAB PO SCH (22:02)
[2020-05-04] MEDS: traZODone HCL 100 MG TAB PO SCH (22:02)
[2020-05-04] MEDS: MONTELUKAST 10 MG TAB PO SCH (22:03)
[2020-05-04] MEDS: MORPHINE SULFATE 4 MG/ML SYRINGE IV PRN (22:06)
[2020-05-05 02:36] VITALS: RESP 16
[2020-05-05] MEDS: SODIUM CHLORIDE 0.9% 1,000 ML IV SCH (04:31)
[2020-05-05] MEDS: LEVOTHYROXINE 125 MCG TAB PO SCH (05:06)
[2020-05-05] MEDS: norgestimate-ethinyl estradioL 1 EACH TABLET PO SCH (07:12)
[2020-05-05] MEDS: TOPIRAMATE 25 MG TAB PO SCH (07:19)
[2020-05-05] MEDS: LITHIUM CARBONATE 300 MG CAP PO SCH (07:19)
[2020-05-05] MEDS: SUCRALFATE 1 GM TAB PO SCH (07:20)
[2020-05-05] MEDS: POTASSIUM CHLORIDE ER 10 MEQ TAB.ER.PRT PO SCH (07:20)
[2020-05-05] MEDS: PANTOPRAZOLE 40 MG/10 ML VIAL IVP SCH (07:20)
[2020-05-05] MEDS: HEPARIN SODIUM,PORCINE 5,000 UNIT/ML 1 ML VIAL SQ SCH (07:20)
[2020-05-05] MEDS: DULoxetine HCL 60 MG CAPSULE.DR PO SCH (07:20)
[2020-05-05] MEDS: LORATADINE 10 MG TAB PO SCH (07:20)
[2020-05-05] MEDS: MAG HYDROX/AL HYDROX/SIMETH 30 ML CUP PO SCH ×2 (07:20→12:20)
[2020-05-05] MEDS: FAMOTIDINE 20 MG TAB PO SCH (07:20)
[2020-05-05] MEDS: MORPHINE SULFATE 4 MG/ML SYRINGE IV PRN (07:30)
[2020-05-05] MEDS: ONDANSETRON 4 MG/2 ML VIAL IVP PRN (07:34)
[2020-05-05 07:37] LABS: Basophils % (A) 0 %; Eosinophils # (A) 0.6 k/uL (0-0.7); Eosinophils % (A) 5 %; HCT 40.3 % (34.0-46.0); HGB 12.2 gm/dL (11.4-16.0); Hypochromasia Marked; Lymphocytes # (A) 4.4 k/uL (1.0-4.8); Lymphocytes % (A) 41 %; MCH 25.3 pg (25.0-35.0); MCHC 30.3 g/dL (31.0-37.0); MCV 83.6 fL (80.0-100.0); Mean Platelet Volume 8.6; Monocytes # (A) 0.6 k/uL (0-1.0); Monocytes % (A) 6 %; Neutrophils % (A) 46 %; Platelet Count 300 k/uL (150-450); RBC 4.82 m/uL (3.80-5.40); RDW 14.5 % (11.5-15.5); WBC 10.8 k/uL (3.8-10.6)
[2020-05-05 07:47] LABS: ALT 78 U/L (4-34); AST 33 U/L (14-36); African American GFR (CKD) >90 (>60 ml/min/1.73 sqM); Albumin 3.5 g/dL (3.5-5.0); Alkaline Phosphatase 79 U/L (38-126); Anion Gap 9 mmol/L; Blood Urea Nitrogen 4 mg/dL (7-17); Calcium 9.5 mg/dL (8.4-10.2); Carbon Dioxide 22 mmol/L (22-30); Chloride 110 mmol/L (98-107); Glucose 79 mg/dL (74-99); Non-African American GFR(CKD) >90 (>60 ml/min/1.73 sqM); Potassium 4.1 mmol/L (3.5-5.1); Sodium 141 mmol/L (137-145); Total Bilirubin 0.4 mg/dL (0.2-1.3); Total Protein 6.6 g/dL (6.3-8.2)
[2020-05-05 07:54] VITALS: BP 98/62; PULSE 74; TEMP 97.8
[2020-05-05] MEDS ORDERED: HYDROcodone/APAP 5-325MG 1 EACH TAB PO PRN (11:57)
--- NOTE | 2020-05-05 13:49 | P.PN ---
Subjective Progress Note Date: 05/05/20 Chana Alamo is a 24 yo F with PMH morbid obesity, fibromyalgia, bipolar disorder who was recently discharged after laparoscopic sleeve gastrotomy. She returned to the hospital complaining of nausea and vomiting, had tried to follow clear liquid diet at home but feels her symptoms were too much to handle. Currently she continues to complain of abdominal pain and nausea without vomiting. She denies chest pain, shortness of breath, fever, chills. 05/03/2020 complains of nausea this morning-relief with Zofran, but states tolerated protein shake last night for dinner. Maintained on IV fluid hydration. Complains of left-sided abdominal pain. Positive bowel movement yesterday. Denies chest pain, palpitations or shortness of breath. Afebrile, WBC 15.2. Maintaining O2 sats in the 90s on room air. 05/04/2020 recently receiving Zofran, reporting nausea with emesis, sore throat. Afebrile, WBC within normal limits. Denies chest pain, palpitations or shortness of breath. 05/05/2020 significant clinical improvement, tolerated breakfast this morning - no further emesis last night or this morning. Sore throat has subsided. Reported had a migraine headache yesterday, denies headache today. Denies chest pain, palpitations or shortness of breath. Objective - Vital Signs Vital signs: Vital Signs Temp 97.8 F 05/05/20 07:00 Pulse 74 05/05/20 07:00 Resp 16 05/05/20 07:00 BP 98/62 05/05/20 07:00 Pulse Ox 98 05/05/20 07:00 Intake & Output 05/04/20 05/05/20 05/05/20 18:59 06:59 18:59 Intake Total 200 Balance 200 Intake: Oral 200 Other: Voiding Method Toilet Toilet # Voids 2 2 3 - Exam General: Sitting up in bed,NAD Eyes: PERRL, EOMI, conjunctiva normal HENT: normocephalic, oral mucosa mucus moist Neck: supple, no JVD Lungs: normal respiratory effort, clear to auscultation CV: Regular rate and rhythm, no murmur. Peripheral pulses 2+ Abdomen: soft, nondistended, no organomegaly. Status post surgery, positive bowel sounds Skin: warm and dry. No rashes Neuro: A&Ox3, normal mood and affect - Labs CBC & Chem 7: 05/05/20 07:13 05/05/20 07:13 Labs: Abnormal Lab Results - Last 24 Hours (Table) 05/05/20 05/05/20 Range/Units 07:13 07:13 WBC 10.8 H (3.8-10.6) k/uL MCHC 30.3 L (31.0-37.0) g/dL Chloride 110 H (98-107) mmol/L BUN 4 L (7-17) mg/dL ALT 78 H (4-34) U/L Assessment and Plan Assessment: 1. Morbid obesity. S/p sleeve gastrectomy. 2. Fibromyalgia. 3. Bipolar disorder. 4. Insomnia. 5. Hypothyroid 6. Leukocytosis, in a patient with recent surgery, nausea, vomiting, reactive, resolved Plan: Continue on current medication regime ,monitoring and symptomatic treatment. Prn Imitrex for migraines-as this can contribute to nausea and vomiting. PPI, antibiotics,Maalox. Encouraged to ambulate, as tolerated. Medically cleared for discharge. Follow-up with PCP in one week. The impression and plan of care has been dictated as directed. : I performed a history and examination of this patient, discussed the same with the dictator. I agree with the dictator's note ,documented as a scribe. Any additional findings or plans will be noted.
--- NOTE | 2020-05-05 13:50 | P.DS ---
Providers Date of admission: 05/02/20 15:18 Expected date of discharge: 05/05/20 Attending physician: Sylvester James Consults: 05/02/20 10:09 Consult Physician Routine Consulting Provider: Lon Goldberg Consult Reason/Comments: medical management Do you want consulting provider notified?: Yes Primary care physician: Marysol Rose Hospital Course: Discharge diagnosis 1. Nausea and vomiting resolved 2. Morbid obesity Status post laparoscopic sleeve gastrectomy 3. Leukocytosis likely reactive due to patient's recent surgery and nausea and vomiting. Hospital course This is a 24-year-old female recently laparoscopic sleeve gastrectomy. She returned to the emergency room with nausea and vomiting. She was given IV fluid hydration. And diet was advanced slowly to a full liquid bariatric diet. Patient did tolerated advancement diet. She is no longer having any nausea or vomiting. She is afebrile. She is up and ambulating. She reports having bowel movements. She is stable for discharge. She'll follow-up with Dr. James in 1 week. Physician Manager Construction note has been reviewed by physician. Signing provider agrees with the documented findings, assessment, and plan of care. Patient Condition at Discharge: Stable Plan - Discharge Summary Discharge Rx Participant: Yes New Discharge Prescriptions: No Action [place] Carbonate 300 mg PO QAM Levothyroxine Sodium [Synthroid] 125 mcg PO QAM Montelukast [Singulair] 10 mg PO HS Potassium Chloride [K-Tab ER] 10 meq PO DAILY Famotidine [Pepcid] 20 mg PO BID Norgestimate-Ethinyl Estradiol [Sprintec 28 Day Tablet] 1 tab PO DAILY cloNIDine HCL [Catapres] 0.2 mg PO HS Flunisolide [Aerospan] 2 puff INHALATION RT-BID PRN PRN Reason: Dyspnea Prochlorperazine [Compazine] 10 mg PO TID PRN PRN Reason: Nausea DULoxetine HCL [Cymbalta] 60 mg PO BID EPINEPHrine (Auto Inject) [Epipen] 0.3 mg IM DAILY PRN PRN Reason: Allergic Reaction Loratadine [Claritin] 10 mg PO DAILY Topiramate [Topiramate ER] 100 mg PO DAILY Sucralfate [Carafate] 1 gm PO BID #500 ml Hydrocodone/Acetaminophen [[place] 5-325] 1 tab PO Q6HR PRN 3 Days #12 tab PRN Reason: Pain Omeprazole [PriLOSEC] 40 mg PO DAILY #30 cap traZODone HCL [Desyrel] 200 mg PO HS [place] 600 mg PO HS Rizatriptan Benzoate [Rizatriptan] 10 mg PO DAILY PRN PRN Reason: Migraine Headache Discharge Medication List [place] Carbon[place] 300 mg PO QAM 08/27/15 [History] Levothyroxine Sodium [Synthroid] 125 mcg PO QAM 01/06/17 [History] Montelukast [Singulair] 10 mg PO HS 05/21/17 [History] Potassium Chloride [K-Tab ER] 10 meq PO DAILY 09/14/17 [History] Famotidine [Pepcid] 20 mg PO BID 02/04/18 [History] Norgestimate-Ethinyl Estradiol [Sprintec 28 Day Tablet] 1 tab PO DAILY 02/04/18 [History] DULoxetine HCL [Cymbalta] 60 mg PO BID 01/19/19 [History] EPINEPHrine (Auto Inject) [Epipen] 0.3 mg IM DAILY PRN 01/19/19 [History] Flunisolide [Aerospan] 2 puff INHALATION RT-BID PRN 01/19/19 [History] Prochlorperazine [Compazine] 10 mg PO TID PRN 01/19/19 [History] cloNIDine HCL [Catapres] 0.2 mg PO HS 01/19/19 [History] Loratadine [Claritin] 10 mg PO DAILY 05/26/19 [History] Topiramate [Topiramate ER] 100 mg PO DAILY 04/26/20 [History] Hydrocodone/Acetaminophen [[place] 5-325] 1 tab PO Q6HR PRN 3 Days #12 tab 04/29/20 [Rx] Omeprazole [PriLOSEC] 40 mg PO DAILY #30 cap 04/29/20 [Rx] Sucralfate [Carafate] 1 gm PO BID #500 ml 04/29/20 [Rx] [place] Carbon[place] 600 mg PO HS 04/30/20 [History] Rizatriptan Benzoate [Rizatriptan] 10 mg PO DAILY PRN 04/30/20 [History] traZODone HCL [Desyrel] 200 mg PO HS 04/30/20 [History] Follow up Appointment(s)/Referral(s): Marysol Rose DO [Primary Care Provider] - 1 Week Sylvester James MD [STAFF PHYSICIAN] - 1 Week Activity/Diet/Wound Care/Special Instructions: Diet: Bariatric fulls and then advance as instructed per Laparoscopic sleeve gastrectomy instructions No driving while taking [place] No lifting over 10 pounds You may shower. No soaking or tub baths 2 weeks after surgery Very light activity until you are reevaluated at your follow up appointment with your surgeon Discharge Disposition: HOME SELF-CARE
== END 2020-05-05 14:27 | disposition home or self-care (01) | DRG 392 ==
LOC: EC 13:00 → 4SSUR 14:23 → OBSVTOIN 05-02 15:18
PROVIDERS: ADMIT Surgery; ATTEND Surgery
DX: R11.2 Nausea with vomiting, unspecified (principal); Z68.41 Body mass index [BMI] 40.0-44.9, adult; K74.60 Unspecified cirrhosis of liver; E66.01 Morbid (severe) obesity due to excess calories; F31.9 Bipolar disorder, unspecified; R10.9 Unspecified abdominal pain; K58.9 Irritable bowel syndrome, unspecified; K21.9 Gastro-esophageal reflux disease without esophagitis; B19.20 Unspecified viral hepatitis C without hepatic coma; D72.829 Elevated white blood cell count, unspecified; E03.9 Hypothyroidism, unspecified; F43.10 Post-traumatic stress disorder, unspecified; G43.909 Migraine, unspecified, not intractable, without status migrainosus; G47.00 Insomnia, unspecified; J45.909 Unspecified asthma, uncomplicated; M79.7 Fibromyalgia; F41.9 Anxiety disorder, unspecified; K31.84 Gastroparesis; R74.0 Nonspecific elevation of levels of transaminase and lactic acid dehydrogenase [LDH]; J02.9 Acute pharyngitis, unspecified; Z79.890 Hormone replacement therapy; Z79.899 Other long term (current) drug therapy; Z98.84 Bariatric surgery status; Z88.8 Allergy status to other drugs, medicaments and biological substances; Z88.6 Allergy status to analgesic agent; Z91.040 Latex allergy status; Z88.5 Allergy status to narcotic agent; Z88.0 Allergy status to penicillin; Z91.013 Allergy to seafood; Z90.49 Acquired absence of other specified parts of digestive tract; Z98.890 Other specified postprocedural states; Z82.5 Family history of asthma and other chronic lower respiratory diseases; Z82.49 Family history of ischemic heart disease and other diseases of the circulatory system; Z83.79 Family history of other diseases of the digestive system
CPT/HCPCS: 36415; 80053; 83735; 84145; 85025; 86140; 96361; 96374; 96375; 99285

== ENCOUNTER 2020-05-16 09:25 | Inpatient (IN) | payer OTHER ==
[2020-05-16] MEDS ORDERED: ONDANSETRON 4 MG/2 ML VIAL IVP STA (09:46)
[2020-05-16] MEDS ORDERED: SODIUM CHLORIDE 0.9% 2,000 ML IV STA (09:46)
[2020-05-16 10:13] LABS: Basophils # (A) 0.1 k/uL (0-0.2); Basophils % (A) 1 %; Eosinophils # (A) 0.9 k/uL (0-0.7); Eosinophils % (A) 6 %; HCT 44.9 % (34.0-46.0); HGB 13.8 gm/dL (11.4-16.0); Hypochromasia Slight; Lymphocytes # (A) 3.2 k/uL (1.0-4.8); Lymphocytes % (A) 23 %; MCH 25.2 pg (25.0-35.0); MCHC 30.8 g/dL (31.0-37.0); MCV 81.8 fL (80.0-100.0); Mean Platelet Volume 8.4; Monocytes # (A) 0.7 k/uL (0-1.0); Monocytes % (A) 5 %; Neutrophils # (A) 8.9 k/uL (1.3-7.7); Neutrophils % (A) 63 %; Platelet Count 278 k/uL (150-450); RBC 5.49 m/uL (3.80-5.40); WBC 14.2 k/uL (3.8-10.6)
--- NOTE | 2020-05-16 10:29 | ED ---
Nausea/Vomiting/Diarrhea HPI - General Source: patient, RN notes reviewed Mode of arrival: wheelchair Limitations: no limitations <Jasmeet Ngo - Last Filed: 05/16/20 11:23> <Alejandro Browne - Last Filed: 05/16/20 11:32> - General Chief complaint: Nausea/Vomiting/Diarrhea Stated complaint: nausea/vomiting/dizziness Time Seen by Provider: 05/16/20 09:45 - History of Present Illness Initial comments: This is a 24-year-old female presents emergency Department chief complaint of nausea vomiting abdominal pain. Patient's cervix status post gastric sleeve by Dr. James. Patient states that she was discharged home after surgery return a few days after and was hospitalized admitted to pain and nausea vomiting. Patient states that symptoms do not seem to be improving. Last 3 days she's had intractable nausea vomiting and upper abdominal pain. Denies any hematemesis or coffee-ground emesis no significant diarrhea patient or dysuria no hematuria. Patient has a long history of chronic abdominal issues. (Jasmeet Ngo) - Related Data Home Medications Medication Instructions Recorded Confirmed [place] Carbonate 300 mg PO QAM 08/27/15 04/30/20 Levothyroxine Sodium [Synthroid] 125 mcg PO QAM 01/06/17 04/30/20 Montelukast [Singulair] 10 mg PO HS 05/21/17 04/30/20 Potassium Chloride [K-Tab ER] 10 meq PO DAILY 09/14/17 04/30/20 Norgestimate-Ethinyl Estradiol 1 tab PO DAILY 02/04/18 04/30/20 [Sprintec 28 Day Tablet] DULoxetine HCL [Cymbalta] 60 mg PO BID 01/19/19 04/30/20 EPINEPHrine (Auto Inject) [Epipen] 0.3 mg IM DAILY PRN 01/19/19 04/30/20 Flunisolide [Aerospan] 2 puff INHALATION RT-BID PRN 01/19/19 04/30/20 Loratadine [Claritin] 10 mg PO DAILY 05/26/19 04/30/20 Topiramate [Topiramate ER] 100 mg PO DAILY 04/26/20 04/30/20 [place] Carbonate 600 mg PO HS 04/30/20 04/30/20 Rizatriptan Benzoate [Rizatriptan] 10 mg PO DAILY PRN 04/30/20 04/30/20 traZODone HCL [Desyrel] 200 mg PO HS 04/30/20 04/30/20 Previous Rx's Medication Instructions Recorded Omeprazole [PriLOSEC] 40 mg PO DAILY #30 cap 04/29/20 Allergies Allergy/AdvReac Type Severity Reaction Status Date / Time fentanyl Allergy Rash/Hives Verified 05/16/20 09:37 latex Allergy Rash/Hives Verified 05/16/20 09:37 metoclopramide [From Reglan] Allergy Unknown Verified 05/16/20 09:37 Penicillins Allergy Anaphylaxis Verified 05/16/20 09:37 ibuprofen [From Motrin] AdvReac GI Bleed Verified 05/16/20 09:37 prazosin AdvReac Nausea & Verified 05/16/20 09:37 Vomiting grape juice Allergy Anaphylaxis Uncoded 05/16/20 09:37 Seafood Allergy Anaphylaxis Uncoded 05/16/20 09:37 Review of Systems ROS Other: All systems not noted in ROS Statement are negative. <Jasmeet Ngo - Last Filed: 05/16/20 11:23> ROS Other: All systems not noted in ROS Statement are negative. <Alejandro Browne - Last Filed: 05/16/20 11:32> ROS Statement: Those systems with pertinent positive or pertinent negative responses have been documented in the HPI. Past Medical History Past Medical History: Asthma, Chest Pain / Angina, Fibromyalgia, GERD/Reflux, Liver Disease, Thyroid Disorder Additional Past Medical History / Comment(s): Cirrhosis of the liver and hepatitis C (pt states these are partly due to her genetics and partly due to mental health medications she has been taking since age 4), Esophagitis. IBS. PART OF STOMACH NON-FUNCTIONING. BLOOD IN STOOL, 04/08 pt reports VOMITING DAILY due to abdominal pain and migraines (vomited blood 1 week ago)., "fast heart beat", gastroporesis, on actos till 1 week ago-wasn't taking for diabetes History of Any Multi-Drug Resistant Organisms: None Reported Past Surgical History: Appendectomy, Bariatric Surgery, Cholecystectomy, Tonsillectomy Additional Past Surgical History / Comment(s): NASAL Septum repair. COLONOSCOPY., gastric sleeve Past Anesthesia/Blood Transfusion Reactions: Motion Sickness Additional Past Anesthesia/Blood Transfusion Reaction / Comment(s): woke up once during surgery Past Psychological History: Anxiety, Depression, PTSD Smoking Status: Never smoker Past Alcohol Use History: None Reported Past Drug Use History: None Reported - Past Family History Mother Family Medical History: No Reported History Father Family Medical History: Liver Disease Additional Family Medical History / Comment(s): at age 61 from COPD. ALso had cirrhosis,hepatitis C, pancreatitis, heart attacks (multiple) and esophagus disease <Jasmeet Ngo - Last Filed: 05/16/20 11:23> General Exam Limitations: no limitations General appearance: alert, in no apparent distress Head exam: Present: atraumatic, normocephalic, normal inspection ENT exam: Present: normal exam, mucous membranes moist Neck exam: Present: normal inspection. Absent: tenderness, meningismus, lymphadenopathy Respiratory exam: Present: normal lung sounds bilaterally. Absent: respiratory distress, wheezes, rales, rhonchi, stridor Cardiovascular Exam: Present: regular rate, normal rhythm, normal heart sounds. Absent: systolic murmur, diastolic murmur, rubs, gallop, clicks GI/Abdominal exam: Present: soft, tenderness (Moderate diffuse), normal bowel sounds. Absent: distended, guarding, rebound, rigid Back exam: Absent: CVA tenderness (R), CVA tenderness (L) Neurological exam: Present: alert, oriented X3, CN II-XII intact <Jasmeet Ngo - Last Filed: 05/16/20 11:23> Course <Alejandro Browne - Last Filed: 05/16/20 11:32> Vital Signs 05/16/20 09:31 Temperature 98.9 F Pulse Rate 98 Respiratory 18 Rate Blood Pressure 127/91 O2 Sat by Pulse 98 Oximetry - Reevaluation(s) Reevaluation #1: 05/16/20 11:31 PA supervision: I personally evaluate this case patient persists at nausea vomiting and evidence of dehydration. She has a carbon dioxide level XVI. Patient will be admitted for IV hydration. I did discuss the case with Dr. James. (Alejandro Browne) Medical Decision Making - Lab Data Result diagrams: 05/16/20 10:02 05/16/20 10:02 <Jasmeet Ngo - Last Filed: 05/16/20 11:23> - Lab Data Result diagrams: 05/16/20 10:02 05/16/20 10:02 <Alejandro Browne - Last Filed: 05/16/20 11:32> - Medical Decision Making 24-year-old female presented for nausea vomiting. Gastric sleep. Patient's symptoms have been ongoing. Patient found to be dehydrated, metabolic acidosis. Patient will be admitted for IV fluid hydration case discussed with Dr. James (Jasmeet Ngo) - Lab Data Lab Results 05/16/20 05/16/20 05/16/20 Range/Units 10:02 10:02 10:02 WBC 14.2 H (3.8-10.6) k/uL RBC 5.49 H (3.80-5.40) m/uL Hgb 13.8 (11.4-16.0) gm/dL Hct 44.9 (34.0-46.0) % MCV 81.8 (80.0-100.0) fL MCH 25.2 (25.0-35.0) pg MCHC 30.8 L (31.0-37.0) g/dL RDW 15.0 (11.5-15.5) % Plt Count 278 (150-450) k/uL Neutrophils % 63 % Lymphocytes % 23 % Monocytes % 5 % Eosinophils % 6 % Basophils % 1 % Neutrophils # 8.9 H (1.3-7.7) k/uL Lymphocytes # 3.2 (1.0-4.8) k/uL Monocytes # 0.7 (0-1.0) k/uL Eosinophils # 0.9 H (0-0.7) k/uL Basophils # 0.1 (0-0.2) k/uL Hypochromasia Slight Sodium 137 (137-145) mmol/L Potassium 5.1 (3.5-5.1) mmol/L Chloride 105 (98-107) mmol/L Carbon Dioxide 16 L (22-30) mmol/L Anion Gap 16 mmol/L BUN 6 L (7-17) mg/dL Creatinine 0.63 (0.52-1.04) mg/dL Est GFR (CKD-EPI)AfAm >90 (>60 ml/min/1.73 sqM) Est GFR (CKD-EPI)NonAf >90 (>60 ml/min/1.73 sqM) Glucose 93 (74-99) mg/dL Plasma Lactic Acid Tree 0.9 (0.7-2.0) mmol/L Calcium 10.4 H (8.4-10.2) mg/dL Total Bilirubin 0.9 (0.2-1.3) mg/dL AST 107 H (14-36) U/L ALT 153 H (4-34) U/L Alkaline Phosphatase 131 H (38-126) U/L Total Protein 8.4 H (6.3-8.2) g/dL Albumin 4.5 (3.5-5.0) g/dL Amylase 54 (30-110) U/L Lipase 141 (23-300) U/L Urine Color Urine Appearance (Clear) Urine pH (5.0-8.0) Ur Specific [place] (1.001-1.035) Urine Protein (Negative) Urine Glucose (UA) (Negative) Urine Ketones (Negative) Urine Blood (Negative) Urine Nitrite (Negative) Urine Bilirubin (Negative) Urine Urobilinogen (<2.0) mg/dL Ur Leukocyte Esterase (Negative) Urine RBC (0-5) /hpf Urine WBC (0-5) /hpf Ur Squamous Epith Cells (0-4) /hpf Amorphous Sediment (None) /hpf Urine Bacteria (None) /hpf Cellular Casts (0) /lpf Hyaline Casts (0-2) /lpf Urine Mucus (None) /hpf 05/16/20 Range/Units 10:13 WBC (3.8-10.6) k/uL RBC (3.80-5.40) m/uL Hgb (11.4-16.0) gm/dL Hct (34.0-46.0) % MCV (80.0-100.0) fL MCH (25.0-35.0) pg MCHC (31.0-37.0) g/dL RDW (11.5-15.5) % Plt Count (150-450) k/uL Neutrophils % % Lymphocytes % % Monocytes % % Eosinophils % % Basophils % % Neutrophils # (1.3-7.7) k/uL Lymphocytes # (1.0-4.8) k/uL Monocytes # (0-1.0) k/uL Eosinophils # (0-0.7) k/uL Basophils # (0-0.2) k/uL Hypochromasia Sodium (137-145) mmol/L Potassium (3.5-5.1) mmol/L Chloride (98-107) mmol/L Carbon Dioxide (22-30) mmol/L Anion Gap mmol/L BUN (7-17) mg/dL Creatinine (0.52-1.04) mg/dL Est GFR (CKD-EPI)AfAm (>60 ml/min/1.73 sqM) Est GFR (CKD-EPI)NonAf (>60 ml/min/1.73 sqM) Glucose (74-99) mg/dL Plasma Lactic Acid Tree (0.7-2.0) mmol/L Calcium (8.4-10.2) mg/dL Total Bilirubin (0.2-1.3) mg/dL AST (14-36) U/L ALT (4-34) U/L Alkaline Phosphatase (38-126) U/L Total Protein (6.3-8.2) g/dL Albumin (3.5-5.0) g/dL Amylase (30-110) U/L Lipase (23-300) U/L Urine Color Yellow Urine Appearance Cloudy H (Clear) Urine pH 6.0 (5.0-8.0) Ur Specific [place] 1.026 (1.001-1.035) Urine Protein 2+ H (Negative) Urine Glucose (UA) Negative (Negative) Urine Ketones 4+ H (Negative) Urine Blood Negative (Negative) Urine Nitrite Negative (Negative) Urine Bilirubin 2+ H (Negative) Urine Urobilinogen 6.0 (<2.0) mg/dL Ur Leukocyte Esterase Small H (Negative) Urine RBC 3 (0-5) /hpf Urine WBC 12 H (0-5) /hpf Ur Squamous Epith Cells 17 H (0-4) /hpf Amorphous Sediment Occasional H (None) /hpf Urine Bacteria Rare H (None) /hpf Cellular Casts 1 (0) /lpf Hyaline Casts 6 H (0-2) /lpf Urine Mucus Moderate H (None) /hpf Disposition <Jasmeet Ngo - Last Filed: 05/16/20 11:23> <Alejandro Browne - Last Filed: 05/16/20 11:32> Clinical Impression: History of sleeve gastrectomy, Dehydration, Metabolic acidosis, Nausea & vomiting Disposition: ADMITTED IP TO THIS [facility] Condition: Fair Referrals: Marysol Rose DO [Primary Care Provider] - 1-2 days
[2020-05-16 10:37] LABS: ALT 153 U/L (4-34); AST 107 U/L (14-36); African American GFR (CKD) >90 (>60 ml/min/1.73 sqM); Albumin 4.5 g/dL (3.5-5.0); Alkaline Phosphatase 131 U/L (38-126); Amylase 54 U/L (30-110); Anion Gap 16 mmol/L; Blood Urea Nitrogen 6 mg/dL (7-17); Calcium 10.4 mg/dL (8.4-10.2); Carbon Dioxide 16 mmol/L (22-30); Chloride 105 mmol/L (98-107); Glucose 93 mg/dL (74-99); Non-African American GFR(CKD) >90 (>60 ml/min/1.73 sqM); Sodium 137 mmol/L (137-145); Total Bilirubin 0.9 mg/dL (0.2-1.3); Total Protein 8.4 g/dL (6.3-8.2)
[2020-05-16 10:39] LABS: Amorphous Sediment,Urine Occasional /hpf; Appearance,Urine Cloudy (Clear); Bacteria,Urine Rare /hpf; Bilirubin,Urine 2+ (Negative); Blood,Urine Negative (Negative); Cellular Casts,Urine 1 /lpf (0); Color,Urine Yellow; Glucose,Urine (UA) Negative (Negative); Hyaline Casts,Urine 6 /lpf (0-2); Ketones,Urine 4+ (Negative); Leukocyte Esterase,Urine Small (Negative); Mucus,Urine Moderate /hpf; Nitrite,Urine Negative (Negative); Protein,Urine 2+ (Negative); RBC,Urine 3 /hpf (0-5); Specific Gravity,Urine 1.026 (1.001-1.035); Squamous Epithelial Cell,Urine 17 /hpf (0-4); WBC,Urine 12 /hpf (0-5)
[2020-05-16 10:50] LABS: Potassium 5.1 mmol/L (3.5-5.1)
[2020-05-16] MEDS ORDERED: MORPHINE SULFATE 4 MG/ML SYRINGE IVP STA (11:15)
[2020-05-16] MEDS ORDERED: NALOXONE 0.4 MG/ML 1 ML VIAL IV PRN (11:25)
[2020-05-16] MEDS: SODIUM CHLORIDE 0.9% 1,000 ML IV SCH ×2 (11:34→19:50)
[2020-05-16] MEDS ORDERED: FLUNISOLIDE INHALATION PRN (15:08)
--- NOTE | 2020-05-16 15:33 | P.GSHP ---
History of Present Illness H&P Date: 05/16/20 CHIEF COMPLAINT: Nausea, vomiting and abdominal pain 3 days HISTORY OF PRESENT ILLNESS: This is a 24-year-old female with a known history of morbid obesity, fibromyalgia, bipolar disorder and cholecystectomy. She had a laparoscopic sleeve gastrectomy with Dr. James on 04/26/2020. She was admi tted back into the hospital on 05/02/2020 with nausea and vomiting that resolved and she had tolerated advancement of diet. Patient reports a three-day history of nausea, vomiting and abdominal pain. She denies any change in bowel habits. Denies any urinary symptoms. Denies any fever, chills or sweats. Patient was started on IV fluids, IV Protonix and IV Zofran as needed. PAST MEDICAL HISTORY: See list. PAST SURGICAL HISTORY: See list. MEDICATIONS: See list. ALLERGIES: See list. SOCIAL HISTORY: No illicit drug use. REVIEW OF SYSTEMS: CONSTITUTIONAL: Denies fever or chills. HEENT: Denies blurred vision, vision changes, or eye pain. Denies hemoptysis CARDIOVASCULAR: Denies chest pain or pressure. RESPIRATORY: No shortness of breath. GASTROINTESTINAL: See HPI for pertinent findings HEMATOLOGIC: Denies bleeding disorders. GENITOURINARY: Denies any blood in urine or increased urinary frequency. SKIN: Denies pruitis. Denies rash. PHYSICAL EXAM: VITAL SIGNS: Reviewed GENERAL: Well-developed in no acute distress. HEENT: No sclera icterus. Extraocular movements grossly intact. Moist buccal mucosa. Head is atraumatic, normocephalic. No nasal drainage. ABDOMEN: Soft. Obese. Nondistended. Nontender. Old incision sites clean dry and intact. NEUROLOGIC: Alert and oriented. Cranial nerves II through XII grossly intact. LABORATORY DATA: WBC 14.2 hemoglobin is 13.8 platelets 278 lactic acid 0.9 AST 107 ALT 153 alk phos 131 lipase 141 urinalysis contamination IMAGING: ASSESSMENT: 1. Nausea, vomiting and abdominal pain 2. Recent laparoscopic sleeve gastrectomy on 04/26/2020 3. History of bipolar 4. History of morbid obesity 5. Elevated LFTs and history of fatty liver PLAN: -Continue IV fluids -Continue bariatric clear diet -Add IV Protonix 40 mg daily -Continue Zofran as needed for nausea -Repeat urinalysis -Consult Dr. Goldberg for medical management -GI prophylaxis Protonix and DVT prophylaxis subcu heparin Physician Talent Acquisition Administrator note has been reviewed by physician. Signing provider agrees with the documented findings, assessment, and plan of care. Past Medical History Past Medical History: Asthma, Chest Pain / Angina, Fibromyalgia, GERD/Reflux, Liver Disease, Thyroid Disorder Additional Past Medical History / Comment(s): Cirrhosis of the liver and hepatitis C (pt states these are partly due to her genetics and partly due to mental health medications she has been taking since age 4), Esophagitis. IBS. PART OF STOMACH NON-FUNCTIONING. BLOOD IN STOOL, 04/08 pt reports VOMITING DAILY due to abdominal pain and migraines (vomited blood 1 week ago)., "fast heart beat", gastroporesis, on actos till 1 week ago-wasn't taking for diabetes History of Any Multi-Drug Resistant Organisms: None Reported Past Surgical History: Appendectomy, Bariatric Surgery, Cholecystectomy, Tonsillectomy Additional Past Surgical History / Comment(s): NASAL Septum repair. COLONOSCOPY., gastric sleeve Past Anesthesia/Blood Transfusion Reactions: Motion Sickness Additional Past Anesthesia/Blood Transfusion Reaction / Comment(s): woke up once during surgery Past Psychological History: Anxiety, Depression, PTSD Additional Psychological History / Comment(s): 04/20/19: Takes [place] and Cymbalta daily Smoking Status: Never smoker Past Alcohol Use History: None Reported Past Drug Use History: None Reported - Past Family History Mother Family Medical History: No Reported History Father Family Medical History: Liver Disease Additional Family Medical History / Comment(s): at age 61 from COPD. ALso had cirrhosis,hepatitis C, pancreatitis, heart attacks (multiple) and esophagus disease Medications and Allergies Home Medications Medication Instructions Recorded Confirmed Type [place] Carbonate 300 mg PO QAM 08/27/15 05/16/20 History Levothyroxine Sodium [Synthroid] 125 mcg PO QAM 01/06/17 05/16/20 History Norgestimate-Ethinyl Estradiol 1 tab PO DAILY 02/04/18 05/16/20 History [Sprintec 28 Day Tablet] DULoxetine HCL [Cymbalta] 60 mg PO BID 01/19/19 05/16/20 History EPINEPHrine (Auto Inject) [Epipen] 0.3 mg IM DAILY PRN 01/19/19 05/16/20 History Flunisolide [Aerospan] 2 puff INHALATION RT-BID PRN 01/19/19 05/16/20 History Loratadine [Claritin] 10 mg PO DAILY 05/26/19 05/16/20 History Topiramate [Topiramate ER] 100 mg PO DAILY 04/26/20 05/16/20 History Omeprazole [PriLOSEC] 40 mg PO DAILY #30 cap 04/29/20 05/16/20 Rx [place] Carbonate 600 mg PO HS 04/30/20 05/16/20 History Rizatriptan Benzoate [Rizatriptan] 10 mg PO DAILY PRN 04/30/20 05/16/20 History traZODone HCL [Desyrel] 200 mg PO HS 04/30/20 05/16/20 History Fluticasone Nasal [place] [Flonase 2 spr EA NOSTRIL DAILY PRN 05/16/20 05/16/20 History Nasal [place]] Montelukast Sodium [Singulair] 10 mg PO HS 05/16/20 05/16/20 History Ondansetron [Zofran] 4 mg PO TID PRN 05/16/20 05/16/20 History Prochlorperazine [Compazine] 10 mg PO TID PRN 05/16/20 05/16/20 History Sucralfate [Carafate] 1 gm PO BID 05/16/20 05/16/20 History Allergies Allergy/AdvReac Type Severity Reaction Status Date / Time fentanyl Allergy Rash/Hives Verified 05/16/20 13:15 latex Allergy Rash/Hives Verified 05/16/20 13:15 metoclopramide [From Reglan] Allergy Unknown Verified 05/16/20 13:15 Penicillins Allergy Anaphylaxis Verified 05/16/20 13:15 ibuprofen [From Motrin] AdvReac GI Bleed Verified 05/16/20 13:15 prazosin AdvReac Nausea & Verified 05/16/20 13:15 Vomiting grape juice Allergy Anaphylaxis Uncoded 05/16/20 09:37 Seafood Allergy Anaphylaxis Uncoded 05/16/20 09:37 Surgical - Exam Vital Signs Temp Pulse Resp BP Pulse Ox 98.9 F 98 18 127/91 98 05/16/20 09:31 05/16/20 09:31 05/16/20 09:31 05/16/20 09:31 05/16/20 09:31 Results - Labs 05/16/20 10:02 05/16/20 10:02 Abnormal Lab Results - Last 24 Hours (Table) 05/16/20 05/16/20 05/16/20 Range/Units 10:02 10:02 10:13 WBC 14.2 H (3.8-10.6) k/uL RBC 5.49 H (3.80-5.40) m/uL MCHC 30.8 L (31.0-37.0) g/dL Neutrophils # 8.9 H (1.3-7.7) k/uL Eosinophils # 0.9 H (0-0.7) k/uL Carbon Dioxide 16 L (22-30) mmol/L BUN 6 L (7-17) mg/dL Calcium 10.4 H (8.4-10.2) mg/dL AST 107 H (14-36) U/L ALT 153 H (4-34) U/L Alkaline Phosphatase 131 H (38-126) U/L Total Protein 8.4 H (6.3-8.2) g/dL Urine Appearance Cloudy H (Clear) Urine Protein 2+ H (Negative) Urine Ketones 4+ H (Negative) Urine Bilirubin 2+ H (Negative) Ur Leukocyte Esterase Small H (Negative) Urine WBC 12 H (0-5) /hpf Ur Squamous Epith Cells 17 H (0-4) /hpf Amorphous Sediment Occasional H (None) /hpf Urine Bacteria Rare H (None) /hpf Hyaline Casts 6 H (0-2) /lpf Urine Mucus Moderate H (None) /hpf Diabetes panel 05/16/20 Range/Units 10:02 Sodium 137 (137-145) mmol/L Potassium 5.1 (3.5-5.1) mmol/L Chloride 105 (98-107) mmol/L Carbon Dioxide 16 L (22-30) mmol/L BUN 6 L (7-17) mg/dL Creatinine 0.63 (0.52-1.04) mg/dL Glucose 93 (74-99) mg/dL Calcium 10.4 H (8.4-10.2) mg/dL AST 107 H (14-36) U/L ALT 153 H (4-34) U/L Alkaline Phosphatase 131 H (38-126) U/L Total Protein 8.4 H (6.3-8.2) g/dL Albumin 4.5 (3.5-5.0) g/dL Calcium panel 05/16/20 Range/Units 10:02 Calcium 10.4 H (8.4-10.2) mg/dL Albumin 4.5 (3.5-5.0) g/dL Pituitary panel 05/16/20 Range/Units 10:02 Sodium 137 (137-145) mmol/L Potassium 5.1 (3.5-5.1) mmol/L Chloride 105 (98-107) mmol/L Carbon Dioxide 16 L (22-30) mmol/L BUN 6 L (7-17) mg/dL Creatinine 0.63 (0.52-1.04) mg/dL Glucose 93 (74-99) mg/dL Calcium 10.4 H (8.4-10.2) mg/dL Adrenal panel 05/16/20 Range/Units 10:02 Sodium 137 (137-145) mmol/L Potassium 5.1 (3.5-5.1) mmol/L Chloride 105 (98-107) mmol/L Carbon Dioxide 16 L (22-30) mmol/L BUN 6 L (7-17) mg/dL Creatinine 0.63 (0.52-1.04) mg/dL Glucose 93 (74-99) mg/dL Calcium 10.4 H (8.4-10.2) mg/dL Total Bilirubin 0.9 (0.2-1.3) mg/dL AST 107 H (14-36) U/L ALT 153 H (4-34) U/L Alkaline Phosphatase 131 H (38-126) U/L Total Protein 8.4 H (6.3-8.2) g/dL Albumin 4.5 (3.5-5.0) g/dL
[2020-05-16] MEDS: ONDANSETRON 4 MG/2 ML VIAL IVP PRN (16:53)
[2020-05-16] MEDS: MORPHINE SULFATE 4 MG/ML SYRINGE IV PRN ×2 (16:54→21:49)
[2020-05-16] MEDS: PANTOPRAZOLE 40 MG/10 ML VIAL IVP SCH (17:08)
[2020-05-16 17:25] LABS: Appearance,Urine Cloudy (Clear); Bacteria,Urine Rare /hpf; Bilirubin,Urine 1+ (Negative); Blood,Urine Negative (Negative); Color,Urine Yellow; Glucose,Urine (UA) Negative (Negative); Ketones,Urine 4+ (Negative); Leukocyte Esterase,Urine Negative (Negative); Mucus,Urine Occasional /hpf; Nitrite,Urine Negative (Negative); Protein,Urine Trace (Negative); RBC,Urine 2 /hpf (0-5); Specific Gravity,Urine 1.013 (1.001-1.035); Squamous Epithelial Cell,Urine 8 /hpf (0-4); WBC,Urine 5 /hpf (0-5)
[2020-05-16] MEDS: HEPARIN SODIUM,PORCINE 5,000 UNIT/ML 1 ML VIAL SQ SCH (21:48)
[2020-05-16] MEDS: PROCHLORPERAZINE 10 MG TAB PO PRN (22:05)
[2020-05-16] MEDS: DULoxetine HCL 60 MG CAPSULE.DR PO SCH (22:34)
[2020-05-16] MEDS: LITHIUM CARBONATE 300 MG CAP PO SCH (22:35)
[2020-05-17] MEDS: PROMETHAZINE INJ 12.5 MG in SODIUM CHLORIDE 0.9% 50 ML IVPB PRN ×3 (00:03→15:44)
[2020-05-17] MEDS: traZODone HCL 100 MG TAB PO SCH ×2 (00:40→21:36)
[2020-05-17] MEDS: LITHIUM CARBONATE 300 MG CAP PO SCH ×3 (00:42→21:35)
[2020-05-17] MEDS: DULoxetine HCL 60 MG CAPSULE.DR PO SCH ×3 (00:43→21:35)
[2020-05-17] MEDS: SUCRALFATE 1 GM TAB PO SCH ×3 (00:45→21:36)
[2020-05-17] MEDS: MONTELUKAST 10 MG TAB PO SCH ×2 (00:45→21:35)
[2020-05-17] MEDS: SODIUM CHLORIDE 0.9% 1,000 ML IV SCH ×3 (05:59→23:09)
[2020-05-17] MEDS: LEVOTHYROXINE 125 MCG TAB PO SCH (07:09)
[2020-05-17 07:22] LABS: Basophils % (A) 1 %; Eosinophils # (A) 0.7 k/uL (0-0.7); Eosinophils % (A) 9 %; HCT 36.9 % (34.0-46.0); HGB 11.2 gm/dL (11.4-16.0); Hypochromasia Marked; Lymphocytes # (A) 2.8 k/uL (1.0-4.8); Lymphocytes % (A) 37 %; MCH 25.3 pg (25.0-35.0); MCHC 30.3 g/dL (31.0-37.0); MCV 83.6 fL (80.0-100.0); Mean Platelet Volume 8.2; Monocytes # (A) 0.4 k/uL (0-1.0); Monocytes % (A) 6 %; Neutrophils # (A) 3.3 k/uL (1.3-7.7); Neutrophils % (A) 45 %; Platelet Count 223 k/uL (150-450); RBC 4.42 m/uL (3.80-5.40); RDW 15.1 % (11.5-15.5); WBC 7.4 k/uL (3.8-10.6)
[2020-05-17 07:40] LABS: ALT 116 U/L (4-34); AST 69 U/L (14-36); African American GFR (CKD) >90 (>60 ml/min/1.73 sqM); Albumin 2.9 g/dL (3.5-5.0); Alkaline Phosphatase 90 U/L (38-126); Anion Gap 7 mmol/L; Blood Urea Nitrogen <2 mg/dL (7-17); Calcium 8.8 mg/dL (8.4-10.2); Carbon Dioxide 22 mmol/L (22-30); Chloride 109 mmol/L (98-107); Glucose 78 mg/dL (74-99); Magnesium 1.7 mg/dL (1.6-2.3); Non-African American GFR(CKD) >90 (>60 ml/min/1.73 sqM); Potassium 3.3 mmol/L (3.5-5.1); Sodium 138 mmol/L (137-145); Total Bilirubin 0.4 mg/dL (0.2-1.3); Total Protein 5.7 g/dL (6.3-8.2)
[2020-05-17] MEDS ORDERED: POTASSIUM CHLORIDE ER 20 MEQ TAB.ER PO STA (08:18)
[2020-05-17] MEDS ORDERED: MAGNESIUM SULFATE-D5W PMX 1 GM in DEXTROSE/WATER 1 100ML.BAG IVPB ONE (09:00)
[2020-05-17] MEDS: LORATADINE 10 MG TAB PO SCH (09:54)
[2020-05-17] MEDS: TOPIRAMATE 25 MG TAB PO SCH ×2 (09:54→21:36)
[2020-05-17] MEDS: HEPARIN SODIUM,PORCINE 5,000 UNIT/ML 1 ML VIAL SQ SCH ×2 (09:57→21:36)
[2020-05-17] MEDS: PANTOPRAZOLE 40 MG/10 ML VIAL IVP SCH (09:57)
[2020-05-17] MEDS: norgestimate-ethinyl estradioL 1 EACH TABLET PO SCH (09:57)
[2020-05-17] MEDS: ONDANSETRON 4 MG/2 ML VIAL IVP PRN ×2 (10:04→20:42)
--- NOTE | 2020-05-17 10:35 | P.PN ---
Subjective Progress Note Date: 05/17/20 CHIEF COMPLAINT: Nausea vomiting and abdominal pain HISTORY OF PRESENT ILLNESS: This is a 24-year-old female with a known history of morbid obesity, fibromyalgia, bipolar disorder and cholecystectomy. She had a laparoscopic sleeve gastrectomy with Dr. James on 04/26/2020. Patient reports 1 episode of vomiting last night. She still reporting abdominal pain. She is afebrile. White count has gone down from 14.2-7.4 potassium is 3.3 magnesium 1.7 hemoglobin 11.2 AST 69 ALT 116 repeat urine shows no evidence of infection PHYSICAL EXAM: VITAL SIGNS: Reviewed. GENERAL: Well-developed in no acute distress. HEENT: No sclera icterus. Extraocular movements grossly intact. Moist buccal mucosa. Head is atraumatic, normocephalic. ABDOMEN: Soft. Nondistended. Nontender. NEUROLOGIC: Alert and oriented. Cranial nerves II through XII grossly intact. ASSESSMENT: 1. Nausea, vomiting and abdominal pain 2. Recent laparoscopic sleeve gastrectomy on 04/26/2020 3. History of bipolar 4. History of morbid obesity 5. Elevated LFTs likely due to history of fatty liver 6. Hypokalemia and hypomagnesemia PLAN: -Check esophagram today -Replace potassium and magnesium -Continue IV fluids -Continue bariatric clear diet -Add IV Protonix 40 mg daily -Continue Zofran as needed for nausea -Consult Dr. Goldberg for medical management -GI prophylaxis Protonix and DVT prophylaxis subcu heparin Physician Child Care Lead Teacher note has been reviewed by physician. Signing provider agrees with the documented findings, assessment, and plan of care. Objective - Vital Signs Vital signs: Vital Signs Temp 98.4 F 05/17/20 09:15 Pulse 95 05/17/20 09:15 Resp 18 05/17/20 09:15 BP 101/69 05/17/20 09:15 Pulse Ox 96 05/17/20 09:15 Intake & Output 05/16/20 05/17/20 05/17/20 18:59 06:59 18:59 Intake Total 120 Output Total 200 351 Balance -80 -351 Weight 93.894 kg Intake: Blood Product 120 Output: Urine 200 350 Emesis 1 Other: # Voids 1 # Emeses 10 - Labs CBC & Chem 7: 05/17/20 06:48 05/17/20 06:48 Labs: Abnormal Lab Results - Last 24 Hours (Table) 05/16/20 05/16/20 05/16/20 Range/Units 10:02 10:13 17:15 Hgb (11.4-16.0) gm/dL MCHC (31.0-37.0) g/dL Potassium (3.5-5.1) mmol/L Chloride (98-107) mmol/L Carbon Dioxide 16 L (22-30) mmol/L BUN 6 L (7-17) mg/dL Calcium 10.4 H (8.4-10.2) mg/dL AST 107 H (14-36) U/L ALT 153 H (4-34) U/L Alkaline Phosphatase 131 H (38-126) U/L Total Protein 8.4 H (6.3-8.2) g/dL Albumin (3.5-5.0) g/dL Urine Appearance Cloudy H Cloudy H (Clear) Urine Protein 2+ H Trace H (Negative) Urine Ketones 4+ H 4+ H (Negative) Urine Bilirubin 2+ H 1+ H (Negative) Ur Leukocyte Esterase Small H (Negative) Urine WBC 12 H (0-5) /hpf Ur Squamous Epith Cells 17 H 8 H (0-4) /hpf Amorphous Sediment Occasional H (None) /hpf Urine Bacteria Rare H Rare H (None) /hpf Hyaline Casts 6 H (0-2) /lpf Urine Mucus Moderate H Occasional H (None) /hpf 05/17/20 05/17/20 Range/Units 06:48 06:48 Hgb 11.2 L (11.4-16.0) gm/dL MCHC 30.3 L (31.0-37.0) g/dL Potassium 3.3 L (3.5-5.1) mmol/L Chloride 109 H (98-107) mmol/L Carbon Dioxide (22-30) mmol/L BUN <2 L (7-17) mg/dL Calcium (8.4-10.2) mg/dL AST 69 H (14-36) U/L ALT 116 H (4-34) U/L Alkaline Phosphatase (38-126) U/L Total Protein 5.7 L (6.3-8.2) g/dL Albumin 2.9 L (3.5-5.0) g/dL Urine Appearance (Clear) Urine Protein (Negative) Urine Ketones (Negative) Urine Bilirubin (Negative) Ur Leukocyte Esterase (Negative) Urine WBC (0-5) /hpf Ur Squamous Epith Cells (0-4) /hpf Amorphous Sediment (None) /hpf Urine Bacteria (None) /hpf Hyaline Casts (0-2) /lpf Urine Mucus (None) /hpf Microbiology - Last 24 Hours (Table) 05/16/20 10:13 Urine Culture - Preliminary Urine,Voided
--- NOTE | 2020-05-17 12:46 | FL ---
EXAMINATION TYPE: FL UGI air w esophagus DATE OF EXAM: 05/17/2020 COMPARISON: 04/27/2020 HISTORY: 24-year-old female status post gastric sleeve 3 weeks ago with nausea and vomiting. TECHNIQUE: A single contrast esophagus and UGI study is performed. Total fluoroscopy time: 1 minute 45 seconds. Total images: 29 FINDINGS: The patient swallowed thin barium slowly. Normal course and caliber of the thoracic esophagus. There is a mottled densities in the distal esophagus that could represent some retained food. Otherwise, there is satisfactory passage across the GE junction of recurrent episodes of gastroesopha geal reflux. There is mild narrowing at the proximal end of the gastric sleeve but oral contrast does flow across the length of the sleeve and into the duodenum. No abnormal torquing of the spleen. IMPRESSION: 1. Mild narrowing at the proximal end of the sleeve. There may be a relative mild obstruction. 2. Recurrent episodes of gastroesophageal reflux.
[2020-05-17] MEDS: MORPHINE SULFATE 4 MG/ML SYRINGE IV PRN ×2 (15:48→21:59)
[2020-05-17] MEDS: LACTATED RINGERS 1,000 ML IV SCH ×2 (17:59→18:00)
--- NOTE | 2020-05-17 22:34 | P.CONS ---
History of Present Illness - Reason for Consult Consult date: 05/17/20 medical eval - Chief Complaint nausea, vomiting - History of Present Illness Chana Alamo is a 24 yo F with PMH morbid obesity, recent gastric sleeve on 04/26, fibromyalgia, bipolar disorder. She presented to the ED complaining of nausea and vomiting despite trying zofran at home. She notes she had been able to advance her diet to soft foods and has been tolerating this well but over the past few days has been increasingly bloated and nauseated. On presentation vitals and labs stable. Review of Systems All systems: negative Constitutional: Denies chills, Denies fever Eyes: denies blurred vision, denies pain Ears, nose, mouth and throat: Denies headache, Denies sore throat Cardiovascular: Denies chest pain, Denies shortness of breath Respiratory: Denies cough Gastrointestinal: Reports abdominal pain, Reports nausea, Reports vomiting, Denies diarrhea Genitourinary: Denies dysuria, Denies hematuria Musculoskeletal: Denies myalgias Integumentary: Denies pruritus, Denies rash Neurological: Denies numbness, Denies weakness Psychiatric: Denies anxiety, Denies depression Endocrine: Denies fatigue, Denies weight change Past Medical History Past Medical History: Asthma, Chest Pain / Angina, Fibromyalgia, GERD/Reflux, Liver Disease, Thyroid Disorder Additional Past Medical History / Comment(s): Cirrhosis of the liver and hepatitis C (pt states these are partly due to her genetics and partly due to mental health medications she has been taking since age 4), Esophagitis. IBS. PART OF STOMACH NON-FUNCTIONING. BLOOD IN STOOL, 04/08 pt reports VOMITING DAILY due to abdominal pain and migraines (vomited blood 1 week ago)., "fast heart beat", gastroporesis, on actos till 1 week ago-wasn't taking for diabetes History of Any Multi-Drug Resistant Organisms: None Reported Past Surgical History: Appendectomy, Bariatric Surgery, Cholecystectomy, Tonsillectomy Additional Past Surgical History / Comment(s): NASAL Septum repair. COLONOSCOPY., gastric sleeve Past Anesthesia/Blood Transfusion Reactions: Motion Sickness Additional Past Anesthesia/Blood Transfusion Reaction / Comm: woke up once during surgery Past Psychological History: Anxiety, Depression, PTSD Additional Psychological History / Comment(s): 04/20/19: Takes [place] and Cymbalta daily Smoking Status: Never smoker Past Alcohol Use History: None Reported Past Drug Use History: None Reported - Past Family History Mother Family Medical History: No Reported History Father Family Medical History: Liver Disease Additional Family Medical History / Comment(s): at age 61 from COPD. ALso had cirrhosis,hepatitis C, pancreatitis, heart attacks (multiple) and esophagus disease Medications and Allergies Home Medications Medication Instructions Recorded Confirmed Type [place] Carbonate 300 mg PO QAM 08/27/15 05/16/20 History Levothyroxine Sodium [Synthroid] 125 mcg PO QAM 01/06/17 05/16/20 History Norgestimate-Ethinyl Estradiol 1 tab PO DAILY 02/04/18 05/16/20 History [Sprintec 28 Day Tablet] DULoxetine HCL [Cymbalta] 60 mg PO BID 01/19/19 05/16/20 History EPINEPHrine (Auto Inject) [Epipen] 0.3 mg IM DAILY PRN 01/19/19 05/16/20 History Flunisolide [Aerospan] 2 puff INHALATION RT-BID PRN 01/19/19 05/16/20 History Loratadine [Claritin] 10 mg PO DAILY 05/26/19 05/16/20 History Topiramate [Topiramate ER] 100 mg PO DAILY 04/26/20 05/16/20 History Omeprazole [PriLOSEC] 40 mg PO DAILY #30 cap 04/29/20 05/16/20 Rx [place] Carbonate 600 mg PO HS 04/30/20 05/16/20 History Rizatriptan Benzoate [Rizatriptan] 10 mg PO DAILY PRN 04/30/20 05/16/20 History traZODone HCL [Desyrel] 200 mg PO HS 04/30/20 05/16/20 History Fluticasone Nasal [place] [Flonase 2 spr EA NOSTRIL DAILY PRN 05/16/20 05/16/20 History Nasal [place]] Montelukast Sodium [Singulair] 10 mg PO HS 05/16/20 05/16/20 History Ondansetron [Zofran] 4 mg PO TID PRN 05/16/20 05/16/20 History Prochlorperazine [Compazine] 10 mg PO TID PRN 05/16/20 05/16/20 History Sucralfate [Carafate] 1 gm PO BID 05/16/20 05/16/20 History Allergies Allergy/AdvReac Type Severity Reaction Status Date / Time fentanyl Allergy Rash/Hives Verified 05/16/20 13:15 latex Allergy Rash/Hives Verified 05/16/20 13:15 metoclopramide [From Reglan] Allergy Unknown Verified 05/16/20 13:15 Penicillins Allergy Anaphylaxis Verified 05/16/20 13:15 ibuprofen [From Motrin] AdvReac GI Bleed Verified 05/16/20 13:15 prazosin AdvReac Nausea & Verified 05/16/20 13:15 Vomiting grape juice Allergy Anaphylaxis Uncoded 05/16/20 09:37 Seafood Allergy Anaphylaxis Uncoded 05/16/20 09:37 Physical Exam Vitals: Vital Signs Temp Pulse Resp BP Pulse Ox 05/17/20 19:40 99.1 F 91 20 124/83 96 05/17/20 16:40 98.4 F 98 20 126/86 95 05/17/20 09:15 98.4 F 95 18 101/69 96 05/17/20 04:29 90 14 05/17/20 00:58 97.9 F 112 H 10 L 136/84 Intake and Output 05/17/20 05/17/20 05/17/20 06:59 14:59 22:59 Output Total 502 Balance -502 Output: Urine 500 Emesis 2 Other: # Voids 1 # Emeses 10 General: well nourished, well developed, morbidly obese, NAD. Vitals reviewed Eyes: PERRL, EOMI, conjunctiva normal HENT: normocephalic, mucus membranes moist Neck: supple, no JVD Lungs: normal respiratory effort, no wheezes or rales CV: Regular rate and rhythm, no murmur. Peripheral pulses 2+ Abdomen: soft, nondistended, no organomegaly. Gen tenderness Lymph: no cervical or axillary LAD Skin: warm and dry. Neuro: A&Ox3, normal mood and affect Results CBC & Chem 7: 05/17/20 06:48 05/17/20 06:48 Labs: Abnormal Lab Results - Last 24 Hours (Table) 05/17/20 05/17/20 Range/Units 06:48 06:48 Hgb 11.2 L (11.4-16.0) gm/dL MCHC 30.3 L (31.0-37.0) g/dL Potassium 3.3 L (3.5-5.1) mmol/L Chloride 109 H (98-107) mmol/L BUN <2 L (7-17) mg/dL AST 69 H (14-36) U/L ALT 116 H (4-34) U/L Total Protein 5.7 L (6.3-8.2) g/dL Albumin 2.9 L (3.5-5.0) g/dL Microbiology - Last 24 Hours (Table) 05/16/20 10:13 Urine Culture - Final Urine,Voided Assessment and Plan (1) Dehydration Current Visit: Yes Status: Acute Code(s): E86.0 - DEHYDRATION SNOMED Code(s): 84300457 (2) History of sleeve gastrectomy Current Visit: Yes Status: Acute Code(s): Z90.3 - ACQUIRED ABSENCE OF STOMACH [PART OF] SNOMED Code(s): 730394666696013 (3) Bipolar disorder Current Visit: No Status: Acute Code(s): F31.9 - BIPOLAR DISORDER, UNSPECIFIED SNOMED Code(s): 68179439 (4) Fibromyalgia Current Visit: No Status: Acute Code(s): M79.7 - FIBROMYALGIA SNOMED Code(s): 431548700 Plan: 1. Nausea and vomiting. hx recent sleeve gastrectomy. Management per primary. NPO, IVF. Zofran and phenergan prn 2. Bipolar disorder. Continue lithium, cymbalta 3. Hypothyroidism. Continue synthroid
[2020-05-18] MEDS: ONDANSETRON 4 MG/2 ML VIAL IVP PRN ×2 (04:52→14:40)
[2020-05-18] MEDS: MORPHINE SULFATE 4 MG/ML SYRINGE IV PRN ×2 (04:55→14:40)
[2020-05-18] MEDS: LEVOTHYROXINE 125 MCG TAB PO SCH (05:48)
[2020-05-18 08:03] LABS: Basophils % (A) 0 %; Eosinophils # (A) 0.6 k/uL (0-0.7); Eosinophils % (A) 9 %; HCT 37.3 % (34.0-46.0); HGB 11.1 gm/dL (11.4-16.0); Hypochromasia Marked; Lymphocytes # (A) 2.2 k/uL (1.0-4.8); Lymphocytes % (A) 37 %; MCH 25.3 pg (25.0-35.0); MCHC 29.9 g/dL (31.0-37.0); MCV 84.6 fL (80.0-100.0); Mean Platelet Volume 8.2; Monocytes # (A) 0.3 k/uL (0-1.0); Monocytes % (A) 5 %; Neutrophils # (A) 2.7 k/uL (1.3-7.7); Neutrophils % (A) 46 %; Platelet Count 192 k/uL (150-450); RBC 4.41 m/uL (3.80-5.40); RDW 14.9 % (11.5-15.5); WBC 5.9 k/uL (3.8-10.6)
[2020-05-18] MEDS: SODIUM CHLORIDE 0.9% 1,000 ML IV SCH (08:28)
[2020-05-18] MEDS: HEPARIN SODIUM,PORCINE 5,000 UNIT/ML 1 ML VIAL SQ SCH ×2 (08:31→21:11)
[2020-05-18] MEDS: DULoxetine HCL 60 MG CAPSULE.DR PO SCH ×2 (08:31→20:56)
[2020-05-18] MEDS: LITHIUM CARBONATE 300 MG CAP PO SCH ×2 (08:31→21:01)
[2020-05-18] MEDS: PANTOPRAZOLE 40 MG/10 ML VIAL IVP SCH (08:32)
[2020-05-18] MEDS: SUCRALFATE 1 GM TAB PO SCH ×2 (08:32→20:59)
[2020-05-18] MEDS: norgestimate-ethinyl estradioL 1 EACH TABLET PO SCH (08:32)
[2020-05-18] MEDS: LORATADINE 10 MG TAB PO SCH (08:32)
[2020-05-18] MEDS: TOPIRAMATE 25 MG TAB PO SCH ×2 (08:33→21:02)
[2020-05-18 08:34] LABS: ALT 99 U/L (4-34); AST 55 U/L (14-36); African American GFR (CKD) >90 (>60 ml/min/1.73 sqM); Albumin 2.8 g/dL (3.5-5.0); Alkaline Phosphatase 95 U/L (38-126); Anion Gap 7 mmol/L; Blood Urea Nitrogen <2 mg/dL (7-17); Calcium 8.8 mg/dL (8.4-10.2); Carbon Dioxide 23 mmol/L (22-30); Chloride 114 mmol/L (98-107); Glucose 87 mg/dL (74-99); Magnesium 1.7 mg/dL (1.6-2.3); Non-African American GFR(CKD) >90 (>60 ml/min/1.73 sqM); Potassium 3.3 mmol/L (3.5-5.1); Sodium 144 mmol/L (137-145); Total Bilirubin 0.4 mg/dL (0.2-1.3); Total Protein 5.6 g/dL (6.3-8.2)
[2020-05-18] MEDS ORDERED: Potassium Replacement Protocol 1 EACH MISC MISCELLANE PRN (08:51)
[2020-05-18] MEDS ORDERED: Magnesium Replacement Protocol 1 EACH MISC MISCELLANE PRN (08:52)
[2020-05-18] MEDS: PROMETHAZINE INJ 12.5 MG in SODIUM CHLORIDE 0.9% 50 ML IVPB PRN ×2 (09:32→21:40)
[2020-05-18] MEDS: 0.9% NACL WITH KCL 40 MEQ/L 1,000 ML IV SCH ×2 (10:43→20:06)
[2020-05-18] MEDS ORDERED: MAGNESIUM SULFATE-D5W PMX 1 GM in DEXTROSE/WATER 1 100ML.BAG IVPB ONE (15:03)
--- NOTE | 2020-05-18 15:03 | P.PN ---
Subjective Progress Note Date: 05/18/20 CHIEF COMPLAINT: Nausea vomiting and abdominal pain HISTORY OF PRESENT ILLNESS: This is a 24-year-old female with a known history of morbid obesity, fibromyalgia, bipolar disorder and cholecystectomy. She had a laparoscopic sleeve gastrectomy with Dr. James on 04/26/2020. Patient reports 2 episodes of vomiting. She reports having 2 bowel movements that were loose. Esophagram showing mild narrowing mild obstruction current episodes of GERD. Patient having difficulty swallowing potassium pills. Potassium is replaced in her fluids. She is afebrile. WBC is 5.9 hemoglobin is 11.1. Potassium 3.3 magnesium 1.7 PHYSICAL EXAM: VITAL SIGNS: Reviewed. GENERAL: Well-developed in no acute distress. HEENT: No sclera icterus. Extraocular movements grossly intact. Moist buccal mucosa. Head is atraumatic, normocephalic. ABDOMEN: Soft. Nondistended. Mild diffuse tenderness with palpation. NEUROLOGIC: Alert and oriented. Cranial nerves II through XII grossly intact. ASSESSMENT: 1. Nausea, vomiting and abdominal pain 2. Recent laparoscopic sleeve gastrectomy on 04/26/2020 3. History of bipolar 4. History of morbid obesity 5. Elevated LFTs likely due to history of fatty liver 6. Hypokalemia and hypomagnesemia PLAN: -Replace potassium and magnesium -Continue IV fluids -Advanced to bariatric fulls diet -Add IV Protonix 40 mg daily -Continue Zofran as needed for nausea -Consult Dr. Goldberg for medical management -GI prophylaxis Protonix and DVT prophylaxis subcu heparin Physician Bioprocess Development Engineer note has been reviewed by physician. Signing provider agrees with the documented findings, assessment, and plan of care. Objective - Vital Signs Vital signs: Vital Signs Temp 98.2 F 05/18/20 12:09 Pulse 84 05/18/20 12:09 Resp 16 05/18/20 12:09 BP 112/78 05/18/20 12:09 Pulse Ox 98 05/18/20 12:09 Intake & Output 05/17/20 05/18/20 05/18/20 18:59 06:59 18:59 Output Total 502 953 Balance -502 -953 Output: Urine 500 950 Emesis 2 3 Other: Voiding Method Toilet # Voids 1 1 1 # Bowel Movements 1 - Labs CBC & Chem 7: 05/18/20 07:45 05/18/20 07:45 Labs: Abnormal Lab Results - Last 24 Hours (Table) 05/18/20 05/18/20 Range/Units 07:45 07:45 Hgb 11.1 L (11.4-16.0) gm/dL MCHC 29.9 L (31.0-37.0) g/dL Potassium 3.3 L (3.5-5.1) mmol/L Chloride 114 H (98-107) mmol/L BUN <2 L (7-17) mg/dL AST 55 H (14-36) U/L ALT 99 H (4-34) U/L Total Protein 5.6 L (6.3-8.2) g/dL Albumin 2.8 L (3.5-5.0) g/dL Microbiology - Last 24 Hours (Table) 05/16/20 10:13 Urine Culture - Final Urine,Voided
--- NOTE | 2020-05-18 16:59 | P.PN ---
Subjective Progress Note Date: 05/18/20 Chana Alamo is a 24 yo F with PMH morbid obesity, recent gastric sleeve on 04/26, fibromyalgia, bipolar disorder. She presented to the ED complaining of nausea and vomiting despite trying zofran at home. She notes she had been able to advance her diet to soft foods and has been tolerating this well but over the past few days has been increasingly bloated and nauseated. On presentation vitals and labs stable. 05-18-20 maintained on IV fluid hydration, PPI, antibiotics with Phenergan added to med regimen yesterday .complains of nausea and emesis this morning. Positive soft bowel movements. T-max 99.1, normal WBC. Potassium 3.3, magnesium 1.7. Esophagram reported mild narrowing, mild obstruction current episodes of gastroesophageal reflux disease. Denies chest pain, palpitations or shortness of breath. Objective - Vital Signs Vital signs: Vital Signs Temp 97.7 F 05/18/20 16:32 Pulse 92 05/18/20 16:32 Resp 16 05/18/20 16:32 BP 121/80 05/18/20 16:32 Pulse Ox 96 05/18/20 16:32 Intake & Output 05/17/20 05/18/20 05/18/20 18:59 06:59 18:59 Output Total 502 953 Balance -502 -953 Output: Urine 500 950 Emesis 2 3 Other: Voiding Method Toilet # Voids 1 1 1 # Bowel Movements 1 - Exam General: well nourished, well developed, morbidly obese, NAD. Vitals reviewed Eyes: PERRL, EOMI, conjunctiva normal HENT: normocephalic, mucus membranes moist Neck: supple, no JVD Lungs: normal respiratory effort, no wheezes or rales CV: Regular rate and rhythm, no murmur. Peripheral pulses 2+ Abdomen: soft, nondistended, no organomegaly. Gen diffuse tenderness Skin: warm and dry. Neuro: A&Ox3, normal mood and affect - Labs CBC & Chem 7: 05/18/20 07:45 05/18/20 07:45 Labs: Abnormal Lab Results - Last 24 Hours (Table) 05/18/20 05/18/20 Range/Units 07:45 07:45 Hgb 11.1 L (11.4-16.0) gm/dL MCHC 29.9 L (31.0-37.0) g/dL Potassium 3.3 L (3.5-5.1) mmol/L Chloride 114 H (98-107) mmol/L BUN <2 L (7-17) mg/dL AST 55 H (14-36) U/L ALT 99 H (4-34) U/L Total Protein 5.6 L (6.3-8.2) g/dL Albumin 2.8 L (3.5-5.0) g/dL Assessment and Plan Assessment: (1) Dehydration secondary to nausea and vomiting and patient with history of recent sleeve gastrectomy Current Visit: Yes Status: Acute Code(s): E86.0 - DEHYDRATION SNOMED Code(s): 03908526 (2) History of sleeve gastrectomy Current Visit: Yes Status: Acute Code(s): Z90.3 - ACQUIRED ABSENCE OF STOMACH [PART OF] SNOMED Code(s): 134125214636312 (3) Bipolar disorder Current Visit: No Status: Acute Code(s): F31.9 - BIPOLAR DISORDER, UNSPECIFIED SNOMED Code(s): 79805145 (4) Fibromyalgia Current Visit: No Status: Acute Code(s): M79.7 - FIBROMYALGIA SNOMED Code(s): 069638124 (5) hypothyroidism Plan: Continue on current medication regime ,monitoring and symptomatic treatment. IV fluid hydration. Electrolyte supplements in addition to potassium added to IV fluid hydration. Follow-up potassium level later this afternoon. maintain antiemetics including Phenergan. PPI. Nothing by mouth, diet advancement as per surgery. The impression and plan of care has been dictated as directed. : I performed a history and examination of this patient, discussed the same with the dictator. I agree with the dictator's note ,documented as a scribe. Any additional findings or plans will be noted.
[2020-05-18] MEDS: MONTELUKAST 10 MG TAB PO SCH (20:59)
[2020-05-18] MEDS: traZODone HCL 100 MG TAB PO SCH (21:00)
[2020-05-19] MEDS: ONDANSETRON 4 MG/2 ML VIAL IVP PRN ×3 (01:39→21:35)
[2020-05-19] MEDS: MORPHINE SULFATE 4 MG/ML SYRINGE IV PRN ×3 (01:40→19:56)
[2020-05-19] MEDS: 0.9% NACL WITH KCL 40 MEQ/L 1,000 ML IV SCH ×3 (04:27→22:46)
[2020-05-19] MEDS: LEVOTHYROXINE 125 MCG TAB PO SCH (06:46)
[2020-05-19 08:32] LABS: ALT 92 U/L (4-34); AST 51 U/L (14-36); African American GFR (CKD) >90 (>60 ml/min/1.73 sqM); Alkaline Phosphatase 94 U/L (38-126); Anion Gap 3 mmol/L; Blood Urea Nitrogen <2 mg/dL (7-17); Calcium 9.1 mg/dL (8.4-10.2); Carbon Dioxide 26 mmol/L (22-30); Chloride 116 mmol/L (98-107); Glucose 90 mg/dL (74-99); Non-African American GFR(CKD) >90 (>60 ml/min/1.73 sqM); Potassium 4.4 mmol/L (3.5-5.1); Sodium 145 mmol/L (137-145); Total Bilirubin 0.3 mg/dL (0.2-1.3); Total Protein 5.8 g/dL (6.3-8.2)
[2020-05-19 08:39] LABS: Basophils % (A) 1 %; Eosinophils # (A) 0.4 k/uL (0-0.7); Eosinophils % (A) 8 %; HGB 11.2 gm/dL (11.4-16.0); Hypochromasia Marked; Lymphocytes # (A) 2.6 k/uL (1.0-4.8); Lymphocytes % (A) 45 %; MCH 25.9 pg (25.0-35.0); MCHC 30.2 g/dL (31.0-37.0); MCV 85.8 fL (80.0-100.0); Mean Platelet Volume 9.4; Monocytes # (A) 0.4 k/uL (0-1.0); Monocytes % (A) 7 %; Neutrophils # (A) 2.1 k/uL (1.3-7.7); Neutrophils % (A) 37 %; Platelet Count 211 k/uL (150-450); RBC 4.31 m/uL (3.80-5.40); RDW 15.1 % (11.5-15.5); WBC 5.7 k/uL (3.8-10.6)
[2020-05-19] MEDS: PANTOPRAZOLE 40 MG/10 ML VIAL IVP SCH (09:26)
[2020-05-19] MEDS: HEPARIN SODIUM,PORCINE 5,000 UNIT/ML 1 ML VIAL SQ SCH ×2 (09:29→21:44)
[2020-05-19] MEDS: DULoxetine HCL 60 MG CAPSULE.DR PO SCH ×2 (09:46→21:43)
[2020-05-19] MEDS: TOPIRAMATE 25 MG TAB PO SCH ×2 (10:04→21:43)
[2020-05-19] MEDS: LORATADINE 10 MG TAB PO SCH (10:21)
[2020-05-19] MEDS: norgestimate-ethinyl estradioL 1 EACH TABLET PO SCH (10:24)
[2020-05-19 10:30] VITALS: BMI 39.1
[2020-05-19] MEDS: FLUTICASONE 50MCG/SPRAY NASAL 16GM EA NOSTRIL PRN (12:00)
[2020-05-19] MEDS: LITHIUM CARBONATE 300 MG CAP PO SCH ×2 (12:01→21:43)
[2020-05-19] MEDS: SUCRALFATE 1 GM TAB PO SCH ×2 (12:03→21:43)
[2020-05-19] MEDS: PROCHLORPERAZINE 10 MG TAB PO PRN (12:51)
[2020-05-19] MEDS ORDERED: diphenhydrAMINE 50 MG/ML 1 ML VIAL IVP STA (13:54)
[2020-05-19] MEDS ORDERED: ACETAMINOPHEN IV (For NPO) 1,000 MG in EMPTY BAG 1 BAG IVPB ONE (14:00)
--- NOTE | 2020-05-19 14:01 | P.PN ---
Subjective Progress Note Date: 05/19/20 Chana Alamo is a 24 yo F with PMH morbid obesity, recent gastric sleeve on 04/26, fibromyalgia, bipolar disorder. She presented to the ED complaining of nausea and vomiting despite trying zofran at home. She notes she had been able to advance her diet to soft foods and has been tolerating this well but over the past few days has been increasingly bloated and nauseated. On presentation vitals and labs stable. 05-18-20 maintained on IV fluid hydration, PPI, antibiotics with Phenergan added to med regimen yesterday .complains of nausea and emesis this morning. Positive soft bowel movements. T-max 99.1, normal WBC. Potassium 3.3, magnesium 1.7. Esophagram reported mild narrowing, mild obstruction current episodes of gastroesophageal reflux disease. Denies chest pain, palpitations or shortness of breath. 05/19/2020 reports nausea and vomiting,having diarrhea. Denies abdominal pain.complains of a migraine headache. Left ear pain, assessed with otoscope, with normal appearance.denies sore throat, cough.afebrile, normal WBC. Objective - Vital Signs Vital signs: Vital Signs Temp 98.5 F 05/19/20 09:33 Pulse 79 05/19/20 09:33 Resp 16 05/19/20 09:33 BP 118/79 05/19/20 09:33 Pulse Ox 97 05/19/20 09:33 Intake & Output 05/18/20 05/19/20 05/19/20 18:59 06:59 18:59 Intake Total 300 Output Total 1753 1500 1700 Balance -1753 -1200 -1700 Weight 93.894 kg Intake: Oral 300 Output: Urine 1750 1500 1700 Emesis 3 Other: Voiding Method Toilet Toilet # Voids 1 # Bowel Movements 1 1 - Exam General: well nourished, well developed, morbidly obese, NAD. Vitals reviewed Eyes: PERRL, EOMI, conjunctiva normal HENT: normocephalic, mucus membranes moist Neck: supple, no JVD Lungs: normal respiratory effort, no wheezes or rales CV: Regular rate and rhythm, no murmur. Peripheral pulses 2+ Abdomen: soft, nondistended, no organomegaly. nontender, positive bowel sounds. Skin: warm and dry. Neuro: A&Ox3, normal mood and affect - Labs CBC & Chem 7: 05/19/20 06:19 05/19/20 06:19 Labs: Abnormal Lab Results - Last 24 Hours (Table) 05/19/20 05/19/20 Range/Units 06:19 06:19 Hgb 11.2 L (11.4-16.0) gm/dL MCHC 30.2 L (31.0-37.0) g/dL Chloride 116 H (98-107) mmol/L BUN <2 L (7-17) mg/dL AST 51 H (14-36) U/L ALT 92 H (4-34) U/L Total Protein 5.8 L (6.3-8.2) g/dL Albumin 3.0 L (3.5-5.0) g/dL Assessment and Plan Assessment: (1) Dehydration secondary to nausea and vomiting and patient with history of recent sleeve gastrectomy Current Visit: Yes Status: Acute Code(s): E86.0 - DEHYDRATION SNOMED Code(s): 30147277 (2) History of sleeve gastrectomy Current Visit: Yes Status: Acute Code(s): Z90.3 - ACQUIRED ABSENCE OF STOMACH [PART OF] SNOMED Code(s): 726229678034433 (3) Bipolar disorder Current Visit: No Status: Acute Code(s): F31.9 - BIPOLAR DISORDER, UNSPECIFIED SNOMED Code(s): 32396951 (4) Fibromyalgia Current Visit: No Status: Acute Code(s): M79.7 - FIBROMYALGIA SNOMED C ode(s): 580056021 (5) hypothyroidism Plan: Continue on current medication regime ,monitoring and symptomatic treatment. Control migraines which affects her nausea vomiting. migraine cocktail ordered. IV fluid hydration,PPI, antibiotics. The impression and plan of care has been dictated as directed. : I performed a history and examination of this patient, discussed the same with the dictator. I agree with the dictator's note ,documented as a scribe. Any additional findings or plans will be noted.
--- NOTE | 2020-05-19 15:29 | P.PN ---
Subjective Progress Note Date: 05/19/20 CHIEF COMPLAINT: Nausea vomiting and abdominal pain HISTORY OF PRESENT ILLNESS: This is a 24-year-old female with a known history of morbid obesity, fibromyalgia, bipolar disorder and cholecystectomy. She had a laparoscopic sleeve gastrectomy with Dr. James on 04/26/2020. Patient did have one episode of vomiting. She is reporting 2 episodes of diarrhea. Esophagram showing mild narrowing mild obstruction recurrent episodes of GERD. Patient afebrile. WBC 5.7 hemoglobin 11.2 potassium 4.4 magnesium 2.0 AST 51 ALT 92 PHYSICAL EXAM: VITAL SIGNS: Reviewed. GENERAL: Well-developed in no acute distress. HEENT: No sclera icterus. Extraocular movements grossly intact. Moist buccal mucosa. Head is atraumatic, normocephalic. ABDOMEN: Soft. Nondistended. Incision sites have healed clean dry and intact NEUROLOGIC: Alert and oriented. Cranial nerves II through XII grossly intact. ASSESSMENT: 1. Nausea, vomiting and abdominal pain 2. Recent laparoscopic sleeve gastrectomy on 04/26/2020 3. History of bipolar 4. History of morbid obesity 5. Elevated LFTs likely due to history of fatty liver 6. Hypokalemia and hypomagnesemia resolved PLAN: -Continue IV fluids -Continue bariatric fulls diet -Continue IV Protonix 40 mg daily -Continue Zofran as needed for nausea -Encourage patient to ambulate -Also will have patient's pills crushed to hopefully help with her nausea and vomiting after taking pills -GI prophylaxis Protonix and DVT prophylaxis subcu heparin Physician Social Insurance Administrator note has been reviewed by physician. Signing provider agrees with the documented findings, assessment, and plan of care. Objective - Vital Signs Vital signs: Vital Signs Temp 98.3 F 05/19/20 15:16 Pulse 96 05/19/20 15:16 Resp 16 05/19/20 15:16 BP 120/81 05/19/20 15:16 Pulse Ox 96 05/19/20 15:16 Intake & Output 05/18/20 05/19/20 05/19/20 18:59 06:59 18:59 Intake Total 300 Output Total 1753 1500 1700 Balance -1753 -1200 -1700 Weight 93.894 kg Intake: Oral 300 Output: Urine 1750 1500 1700 Emesis 3 Other: Voiding Method Toilet Toilet # Voids 1 # Bowel Movements 1 1 - Labs CBC & Chem 7: 05/19/20 06:19 05/19/20 06:19 Labs: Abnormal Lab Results - Last 24 Hours (Table) 05/19/20 05/19/20 Range/Units 06:19 06:19 Hgb 11.2 L (11.4-16.0) gm/dL MCHC 30.2 L (31.0-37.0) g/dL Chloride 116 H (98-107) mmol/L BUN <2 L (7-17) mg/dL AST 51 H (14-36) U/L ALT 92 H (4-34) U/L Total Protein 5.8 L (6.3-8.2) g/dL Albumin 3.0 L (3.5-5.0) g/dL
[2020-05-19] MEDS: SUMAtriptan succinate 50 MG TAB PO PRN (16:02)
[2020-05-19] MEDS: traZODone HCL 100 MG TAB PO SCH (21:43)
[2020-05-19] MEDS: MONTELUKAST 10 MG TAB PO SCH (21:43)
[2020-05-20] MEDS: MORPHINE SULFATE 4 MG/ML SYRINGE IV PRN ×4 (02:14→16:23)
[2020-05-20] MEDS: SUMAtriptan succinate 50 MG TAB PO PRN (04:16)
[2020-05-20] MEDS: LEVOTHYROXINE 125 MCG TAB PO SCH (06:37)
[2020-05-20] MEDS: 0.9% NACL WITH KCL 40 MEQ/L 1,000 ML IV SCH ×3 (06:37→16:24)
[2020-05-20] MEDS: ONDANSETRON 4 MG/2 ML VIAL IVP PRN ×2 (06:44→16:23)
[2020-05-20] MEDS: PANTOPRAZOLE 40 MG/10 ML VIAL IVP SCH (08:26)
[2020-05-20] MEDS: HEPARIN SODIUM,PORCINE 5,000 UNIT/ML 1 ML VIAL SQ SCH ×2 (08:32→20:23)
[2020-05-20] MEDS: DULoxetine HCL 60 MG CAPSULE.DR PO SCH ×2 (08:34→20:22)
[2020-05-20] MEDS: LITHIUM CARBONATE 300 MG CAP PO SCH ×2 (08:34→20:23)
[2020-05-20] MEDS: TOPIRAMATE 25 MG TAB PO SCH ×2 (08:35→20:22)
[2020-05-20] MEDS: SUCRALFATE 1 GM TAB PO SCH ×2 (08:35→20:22)
[2020-05-20] MEDS: LORATADINE 10 MG TAB PO SCH (08:36)
[2020-05-20] MEDS: norgestimate-ethinyl estradioL 1 EACH TABLET PO SCH (09:08)
[2020-05-20] MEDS: PROMETHAZINE INJ 12.5 MG in SODIUM CHLORIDE 0.9% 50 ML IVPB PRN ×2 (09:57→21:04)
[2020-05-20] MEDS: DEXAMETHASONE SOD PHOSPHATE 4 MG/ML 1 ML VIAL IV SCH ×2 (10:56→18:00)
--- NOTE | 2020-05-20 15:13 | P.PN ---
Subjective Progress Note Date: 05/20/20 CHIEF COMPLAINT: Nausea vomiting and abdominal pain HISTORY OF PRESENT ILLNESS: This is a 24-year-old female with a known history of morbid obesity, fibromyalgia, bipolar disorder and cholecystectomy. She had a laparoscopic sleeve gastrectomy with Dr. James on 04/26/2020. Patient reports one bowel movement this morning. She still reporting having nausea and no vomiting. Decadron was added. Patient afebrile. PHYSICAL EXAM: VITAL SIGNS: Reviewed. GENERAL: Well-developed in no acute distress. HEENT: No sclera icterus. Extraocular movements grossly intact. Moist buccal mucosa. Head is atraumatic, normocephalic. ABDOMEN: Soft. Nondistended. Incision sites have healed clean dry and intact NEUROLOGIC: Alert and oriented. Cranial nerves II through XII grossly intact. ASSESSMENT: 1. Nausea, vomiting and abdominal pain 2. Recent laparoscopic sleeve gastrectomy on 04/26/2020 3. History of bipolar 4. History of morbid obesity 5. Elevated LFTs likely due to history of fatty liver 6. Hypokalemia and hypomagnesemia resolved PLAN: -Added Decadron 4 mg IV every 6 hours -Continue IV fluids -Continue bariatric fulls diet -Continue IV Protonix 40 mg daily -Continue Zofran as needed for nausea -Encourage patient to ambulate -Also will have patient's pills crushed to hopefully help with her nausea and vomiting after taking pills -GI prophylaxis Protonix and DVT prophylaxis subcu heparin Physician Wildlife Officer note has been reviewed by physician. Signing provider agrees with the documented findings, assessment, and plan of care. Objective - Vital Signs Vital signs: Vital Signs Temp 99.7 F H 05/20/20 07:00 Pulse 100 05/20/20 07:00 Resp 18 05/20/20 07:00 BP 121/95 05/20/20 07:00 Pulse Ox 96 05/20/20 07:00 Intake & Output 05/19/20 05/20/20 05/20/20 18:59 06:59 18:59 Intake Total 1620 Output Total 2400 2024 1699 Balance - Weight 93.894 kg 93.894 kg Intake: Intake, IV Titration 1140 Amount 0.9% NaCl with KCl 40 Meq 1040 /l 1,000 ml @ 125 mls/hr IV .Q8H JERARDO Rx#:[id number] ACETAMINOPHEN IV (For NPO 100 ) 1,000 mg In Empty Bag 1 bag @ 400 mls/hr IVPB ONCE ONE Rx#:[id number] Oral 480 Output: Urine 2400 2025 1700 Other: Voiding Method Toilet - Labs CBC & Chem 7: 05/19/20 06:19 05/19/20 06:19
--- NOTE | 2020-05-20 16:15 | CDI ---
Documentation Clarification Form Date: 05/20/2020 CDS: Jordyn Umanzor RN, CCDS Admit Date: 05/18/2020 Patient Name: Chana Alamo ATTENTION: The Clinical Documentation Specialists (CDI) and [facility] Coding Staff appreciate your assistance in clarifying documentation. Please respond to the clarification below the line at the bottom and electronically sign. The CDI & [facility] Coding staff will review the response and follow-up if needed. Please note: Queries are made part of the Legal Health Record. If you have any questions, please contact the author of this message via ITS. Dr. Sylvester James MD Mild narrowing at the proximal end of the gastric sleeve. There may be a relative mild obstruction is documented in the upper GI barium swallow exam on 05/17: Please provide clinical significance of these findings. Patients Admitting Diagnosis: Nausea/Vomiting/Diarrhea Procedure performed: Laparoscopic sleeve gastrectomy History/Risk Factors: GERD/Reflux, Esophagitis, Gastroparesis, Fatty liver, Morbid obesity Clinical Indicators: 24-year-old female present with complaint of persistent nausea and vomiting and evidence of dehydration per ED evaluation on 05/16/20. She had a laparoscopic sleeve gastrectomy on 04/26/2020. She was admitted back into the hospital on 05/02/2020 with nausea and vomiting that resolved. She presents on 05/16/20 with c/o nausea, vomiting and abdominal pain. 05/18 progress note: Esophageal showing mild narrowing, mold obstruction current episodes of GERD. 05/18 Assessment: nausea, vomiting and abdominal pain. Recent laparoscopic sleeve gastrectomy on 04/26/2020. 05/18 Labs: WBC 5.9 HGB 11.1, Potassium 3.3, Magnesium 1.7 Treatment: .9 NS w NS-Kcl 40 rhonda/l @ 25 hr Advanced diet to bariatric full diet Protonix 40 mg po daily Zofran 4 mg iv q8 hrs PRN 05/20 Decadron 4 mg IV every 6 hours Morphine Sulfate 4 mg IV q 4hr prn Consults: [insert financial analysis consultant's impressions/findings] In order to accurately reflect this patients severity of illness, please clarify if the nausea and vomiting and Esophagram report: -is a complication of surgical procedure -is an expected outcome of the surgical procedure -is related to co-morbid condition(s) of -Other please specify -Unable to determine (Last Revision: October 2019) Expected outcome of the surgical procedure MTDD
[2020-05-20] MEDS: PROCHLORPERAZINE 10 MG TAB PO PRN (20:22)
[2020-05-20] MEDS: traZODone HCL 100 MG TAB PO SCH (20:23)
[2020-05-20] MEDS: MONTELUKAST 10 MG TAB PO SCH (20:23)
--- NOTE | 2020-05-20 21:32 | P.PN ---
Subjective Progress Note Date: 05/20/20 Principal diagnosis: nausea and vomiting Chana Alamo is a 24 yo F with PMH morbid obesity, recent gastric sleeve on 04/26, fibromyalgia, bipolar disorder. She presented to the ED complaining of nausea and vomiting despite trying zofran at home. She notes she had been able to advance her diet to soft foods and has been tolerating this well but over the past few days has been increasingly bloated and nauseated. On presentation vitals and labs stable. 05/18/20 maintained on IV fluid hydration, PPI, antibiotics with Phenergan added to med regimen yesterday .complains of nausea and emesis this morning. Positive soft bowel movements. T-max 99.1, normal WBC. Potassium 3.3, magnesium 1.7. Esophagram reported mild narrowing, mild obstruction current episodes of gastroesophageal reflux disease. Denies chest pain, palpitations or shortness of breath. 05/19/2020 reports nausea and vomiting,having diarrhea. Denies abdominal pain.complains of a migraine headache. Left ear pain, assessed with otoscope, with normal appearance.denies sore throat, cough.afebrile, normal WBC. 05/20/20. She continues to experience nausea and vomiting, no abdominal pain. Still having headache, improved with topamax. Decadron was added to her medical regimen Objective - Vital Signs Vital signs: Vital Signs Temp 97.9 F 05/20/20 20:00 Pulse 81 05/20/20 20:00 Resp 16 05/20/20 20:00 BP 110/78 05/20/20 20:00 Pulse Ox 96 05/20/20 20:00 Intake & Output 05/20/20 05/20/20 05/21/20 06:59 18:59 06:59 Output Total 2024 2999 Balance -2024 -2999 Weight 93.894 kg Output: Urine 2024 2999 Other: # Voids 1 - Exam General: well nourished, obese, NAD. Vitals reviewed Lungs: normal respiratory effort, no wheezes or rales CV: Regular rate and rhythm, no murmur. Peripheral pulses 2+ Abdomen: soft, nondistended, no organomegaly Skin: warm and dry. - Labs CBC & Chem 7: 05/19/20 06:19 05/19/20 06:19 Assessment and Plan (1) Dehydration Current Visit: Yes Status: Acute Code(s): E86.0 - DEHYDRATION SNOMED Code(s): 94250190 (2) History of sleeve gastrectomy Current Visit: Yes Status: Acute Code(s): Z90.3 - ACQUIRED ABSENCE OF STOMACH [PART OF] SNOMED Code(s): 804460379241771 (3) Bipolar disorder Current Visit: No Status: Acute Code(s): F31.9 - BIPOLAR DISORDER, UNSPECIFIED SNOMED Code(s): 85380847 (4) Fibromyalgia Current Visit: No Status: Acute Code(s): M79.7 - FIBROMYALGIA SNOMED Code(s): 718001774 Plan: Continue with current treatment, home medications, IV zofran, reglan, phenergan. Decadron added. Continue imitrex and topamax for migraine
[2020-05-21] MEDS: 0.9% NACL WITH KCL 40 MEQ/L 1,000 ML IV SCH ×3 (00:21→14:52)
[2020-05-21] MEDS: DEXAMETHASONE SOD PHOSPHATE 4 MG/ML 1 ML VIAL IV SCH ×5 (00:21→23:46)
[2020-05-21] MEDS: MORPHINE SULFATE 4 MG/ML SYRINGE IV PRN ×4 (04:32→20:38)
[2020-05-21] MEDS: ONDANSETRON 4 MG/2 ML VIAL IVP PRN ×2 (05:17→20:38)
[2020-05-21] MEDS: LEVOTHYROXINE 125 MCG TAB PO SCH (06:16)
[2020-05-21] MEDS: PANTOPRAZOLE 40 MG/10 ML VIAL IVP SCH (08:16)
[2020-05-21] MEDS: HEPARIN SODIUM,PORCINE 5,000 UNIT/ML 1 ML VIAL SQ SCH ×2 (08:20→20:24)
[2020-05-21] MEDS: LITHIUM CARBONATE 300 MG CAP PO SCH ×2 (08:23→20:15)
[2020-05-21] MEDS: DULoxetine HCL 60 MG CAPSULE.DR PO SCH ×2 (08:23→20:14)
[2020-05-21] MEDS: TOPIRAMATE 25 MG TAB PO SCH ×2 (08:24→20:13)
[2020-05-21] MEDS: norgestimate-ethinyl estradioL 1 EACH TABLET PO SCH (08:25)
[2020-05-21] MEDS: LORATADINE 10 MG TAB PO SCH (08:25)
[2020-05-21] MEDS: SUCRALFATE 1 GM TAB PO SCH ×2 (08:25→20:23)
--- NOTE | 2020-05-21 12:27 | P.PN ---
Subjective Progress Note Date: 05/21/20 Principal diagnosis: Dysphagia Patient had some dry heaves last night. Feels better currently. White blood cell count is normal. She is afebrile. Upper GI noted. Objective - Vital Signs Vital signs: Vital Signs Temp 98.1 F 05/21/20 07:00 Pulse 105 H 05/21/20 07:00 Resp 16 05/21/20 07:00 BP 126/88 05/21/20 07:00 Pulse Ox 98 05/21/20 07:00 Intake & Output 05/20/20 05/21/20 05/21/20 18:59 06:59 18:59 Output Total 3000 Balance -3000 Weight 93.894 kg Output: Urine 3000 Other: # Voids 1 2 - Exam Abdomen: Soft, nontender, nondistended, incisions clean and dry - Labs CBC & Chem 7: 05/19/20 06:19 05/19/20 06:19 Assessment and Plan (1) Dehydration Narrative/Plan: Patient gradually improving. Continue bariatric full liquid diet. Ambulate. Current Visit: Yes Status: Acute Code(s): E86.0 - DEHYDRATION SNOMED Code(s): 34810701
[2020-05-21] MEDS: PROMETHAZINE INJ 12.5 MG in SODIUM CHLORIDE 0.9% 50 ML IVPB PRN (14:51)
[2020-05-21] MEDS: traZODone HCL 100 MG TAB PO SCH (20:18)
[2020-05-21] MEDS: MONTELUKAST 10 MG TAB PO SCH (20:23)
[2020-05-21] MEDS: FLUTICASONE 50MCG/SPRAY NASAL 16GM EA NOSTRIL PRN (20:32)
[2020-05-22] MEDS: 0.9% NACL WITH KCL 40 MEQ/L 1,000 ML IV SCH ×3 (02:18→19:55)
[2020-05-22] MEDS: PROCHLORPERAZINE 10 MG TAB PO PRN (02:18)
[2020-05-22] MEDS: MORPHINE SULFATE 4 MG/ML SYRINGE IV PRN ×2 (02:18→08:43)
[2020-05-22] MEDS: DEXAMETHASONE SOD PHOSPHATE 4 MG/ML 1 ML VIAL IV SCH ×4 (05:41→23:14)
[2020-05-22] MEDS: LITHIUM CARBONATE 300 MG CAP PO SCH ×2 (08:01→22:14)
[2020-05-22] MEDS: DULoxetine HCL 60 MG CAPSULE.DR PO SCH ×2 (08:01→19:54)
[2020-05-22] MEDS: SUCRALFATE 1 GM TAB PO SCH ×2 (08:02→19:54)
[2020-05-22] MEDS: PANTOPRAZOLE 40 MG/10 ML VIAL IVP SCH (08:02)
[2020-05-22] MEDS: HEPARIN SODIUM,PORCINE 5,000 UNIT/ML 1 ML VIAL SQ SCH ×2 (08:02→19:56)
[2020-05-22] MEDS: LEVOTHYROXINE 125 MCG TAB PO SCH (08:02)
[2020-05-22] MEDS: LORATADINE 10 MG TAB PO SCH (08:02)
[2020-05-22] MEDS: norgestimate-ethinyl estradioL 1 EACH TABLET PO SCH (08:03)
[2020-05-22] MEDS: ONDANSETRON 4 MG/2 ML VIAL IVP PRN ×2 (08:09→17:14)
[2020-05-22] MEDS: TOPIRAMATE 25 MG TAB PO SCH ×2 (08:40→22:13)
--- NOTE | 2020-05-22 10:51 | P.PN ---
Subjective Progress Note Date: 05/22/20 Principal diagnosis: Dysphagia Patient doing about the same today. Still with dysphagia. Small amount of emesis at times. Patient would like to try oral pain medications instead of the IV morphine. Low-grade temp 99.3. Objective - Vital Signs Vital signs: Vital Signs Temp 98 F 05/22/20 05:23 Pulse 77 05/22/20 05:23 Resp 18 05/22/20 05:23 BP 105/71 05/22/20 05:23 Pulse Ox 99 05/22/20 05:23 Intake & Output 05/21/20 05/22/20 05/22/20 18:59 06:59 18:59 Other: Voiding Method Toilet # Voids 2 1 - Exam Abdomen: Soft, nontender, nondistended - Labs CBC & Chem 7: 05/19/20 06:19 05/19/20 06:19 Assessment and Plan (1) Dehydration Narrative/Plan: Continue bariatric clear liquids. Discontinue morphine and start liquid hydrocodone. Continue encouraging liquid intake. Current Visit: Yes Status: Acute Code(s): E86.0 - DEHYDRATION SNOMED Code(s): 25847654
[2020-05-22] MEDS: HYDROcodone/APAP 15 ML SOLUTION PO PRN ×2 (12:08→19:55)
--- NOTE | 2020-05-22 13:25 | P.PN ---
Subjective Progress Note Date: 05/21/20 Principal diagnosis: Dysphagia Dehydration Reason sleeve gastrectomy 24 yo F with PMH morbid obesity, recent gastric sleeve on 04/26, fibromyalgia, bipolar disorder. She presented to the ED complaining of nausea and vomiting despite trying zofran at home. She notes she had been able to advance her diet to soft foods and has been tolerating this well but over the past few days has been increasingly bloated and nauseated. On presentation vitals and labs stable. 05/21/2020 Patient is seen and evaluated sitting up in bed; continues to complain of episod es of dry heaves left leg Vital signs are reviewed and are stable with a temperature of 98.1, pulse 105, respirations 16 and blood pressure of 126/88 Labs are reviewed from 05/19/2020 and are stable; upper GI stent and diffuse mild narrowing at the proximal end of the sleeve which may be related to mild obstruction; recurrent episodes of gastroesophageal reflux Surgery is following and recommending to continue with bariatric full liquid diet; increase ambulation; continue with current management Objective - Vital Signs Vital signs: Vital Signs Temp 98.1 F 05/21/20 07:00 Pulse 105 H 05/21/20 07:00 Resp 16 05/21/20 07:00 BP 126/88 05/21/20 07:00 Pulse Ox 98 05/21/20 07:00 Intake & Output 05/20/20 05/21/20 05/21/20 18:59 06:59 18:59 Output Total 3000 Balance -3000 Weight 93.894 kg Output: Urine 3000 Other: # Voids 1 2 - Exam - Constitutional General appearance: Present: average body habitus, cooperative, no acute distress - EENT Eyes: Present: anicteric sclerae, EOMI, PERRLA, normal appearance ENT: Present: hearing grossly normal, normal oropharynx Ears: bilateral: normal - Neck Neck: Present: normal ROM. Absent: lymphadenopathy, rigidity, thyromegaly Carotids: negative: bruit present Thyroid: bilateral: normal size, negative: enlarged, nodule - Respiratory Respiratory: bilateral: CTA, negative: rales, rhonchi, wheezing - Cardiovascular Rhythm: regular Heart sounds: normal: S1, S2 Abnormal Heart Sounds: Absent: systolic murmur, diastolic murmur - Gastrointestinal General gastrointestinal: Present: normal bowel sounds, soft. Absent: distended, organomegaly, tenderness - Genitourinary Genitourinary Comment(s): deferred - Integumentary Integumentary: Present: normal turgor. Absent: jaundiced, rash, ulcer - Neurologic Neurologic: Present: CNII-XII intact. Absent: focal deficits - Musculoskeletal Musculoskeletal: Present: gait normal, strength equal bilaterally - Psychiatric Psychiatric: Present: A&O x's 3, appropriate affect, intact judgment & insight - Labs CBC & Chem 7: 05/19/20 06:19 05/19/20 06:19 Assessment and Plan Assessment: 1. Intractable nausea and dysphagia; surgery is following and recommending to continue with full liquid diet and advance as tolerated; upper GI reveals narrowing of the sleep which could be related to obstruction; surgery is recommending to monitor for now 2. Dehydration; patient remains on normal saline at a rate of 1 25 mL an hour; monitor strict ELICEO's, daily weights, renal function and electrolytes 3. Headaches; improved on Topamax and Imitrex 4. Bipolar disorder; remains on lithium carbonate 5. Hypothyroidism; levothyroxine 125 MCG daily DVT prophylaxis; subcu heparin CODE STATUS; full code
--- NOTE | 2020-05-22 18:01 | P.PN ---
Subjective Progress Note Date: 05/22/20 Principal diagnosis: Dysphagia Dehydration Reason sleeve gastrectomy 24 yo F with PMH morbid obesity, recent gastric sleeve on 04/26, fibromyalgia, bipolar disorder. She presented to the ED complaining of nausea and vomiting despite trying zofran at home. She notes she had been able to advance her diet to soft foods and has been tolerating this well but over the past few days has been increasingly bloated and nauseated. On presentation vitals and labs stable. 05/21/2020 Patient is seen and evaluated sitting up in bed; continues to complain of episod es of dry heaves left leg Vital signs are reviewed and are stable with a temperature of 98.1, pulse 105, respirations 16 and blood pressure of 126/88 Labs are reviewed from 05/19/2020 and are stable; upper GI stent and diffuse mild narrowing at the proximal end of the sleeve which may be related to mild obstruction; recurrent episodes of gastroesophageal reflux Surgery is following and recommending to continue with bariatric full liquid diet; increase ambulation; continue with current management 05/22/2020 Patient has been transferred to [facility]; continue to report small amount of emesis and dysphagia; denies much improvement in symptoms; continues to complain of pain but agreeable to use oral pain medications Vital signs reviewed reveals a temperature of 98, pulse 77, respiration 18 and blood pressure of 105/71 Patient is status post bariatric surgery on 04/26/2020; continues to report dysphagia and nausea with vomiting; Gen. surgery is on board; upper GI revealed mild narrowing at proximal end of the sleeve; no surgical intervention is recommended; patient remains on bariatric clear liquid diet; IV morphine has been discontinued and patient will rely on oral liquid hydrocodone; oral intake is encouraged Objective - Vital Signs Vital signs: Vital Signs Temp 97.0 F L 05/22/20 11:30 Pulse 86 05/22/20 11:30 Resp 14 05/22/20 11:30 BP 108/77 05/22/20 11:30 Pulse Ox 98 05/22/20 11:30 Intake & Output 05/21/20 05/22/20 05/22/20 18:59 06:59 18:59 Other: Voiding Method Toilet # Voids 2 1 - Exam - Constitutional General appearance: Present: average body habitus, cooperative, no acute distress - EENT Eyes: Present: anicteric sclerae, EOMI, PERRLA, normal appearance ENT: Present: hearing grossly normal, normal oropharynx Ears: bilateral: normal - Neck Neck: Present: normal ROM. Absent: lymphadenopathy, rigidity, thyromegaly Carotids: negative: bruit present Thyroid: bilateral: normal size, negative: enlarged, nodule - Respiratory Respiratory: bilateral: CTA, negative: rales, rhonchi, wheezing - Cardiovascular Rhythm: regular Heart sounds: normal: S1, S2 Abnormal Heart Sounds: Absent: systolic murmur, diastolic murmur - Gastrointestinal General gastrointestinal: Present: normal bowel sounds, soft. Absent: distended, organomegaly, tenderness - Genitourinary Genitourinary Comment(s): deferred - Integumentary Integumentary: Present: normal turgor. Absent: jaundiced, rash, ulcer - Neurologic Neurologic: Present: CNII-XII intact. Absent: focal deficits - Musculoskeletal Musculoskeletal: Present: gait normal, strength equal bilaterally - Psychiatric Psychiatric: Present: A&O x's 3, appropriate affect, intact judgment & insight - Labs CBC & Chem 7: 05/19/20 06:19 05/19/20 06:19 Assessment and Plan Assessment: 1. Intractable nausea and dysphagia; surgery is following and recommending to continue with full liquid diet and advance as tolerated; upper GI reveals narrowing of the sleep which could be related to obstruction; surgery is recommending to monitor for now 2. Dehydration; patient remains on normal saline at a rate of 1 25 mL an hour; monitor strict ELICEO's, daily weights, renal function and electrolytes 3. Headaches; improved on Topamax and Imitrex 4. Bipolar disorder; remains on lithium carbonate 5. Hypothyroidism; levothyroxine 125 MCG daily DVT prophylaxis; subcu heparin CODE STATUS; full code
[2020-05-22] MEDS: traZODone HCL 100 MG TAB PO SCH (19:54)
[2020-05-22] MEDS: MONTELUKAST 10 MG TAB PO SCH (19:54)
[2020-05-23] MEDS: DEXAMETHASONE SOD PHOSPHATE 4 MG/ML 1 ML VIAL IV SCH ×3 (05:17→19:13)
[2020-05-23] MEDS: 0.9% NACL WITH KCL 40 MEQ/L 1,000 ML IV SCH ×3 (05:17→20:27)
[2020-05-23] MEDS: HYDROcodone/APAP 15 ML SOLUTION PO PRN ×3 (05:18→19:12)
[2020-05-23] MEDS: ONDANSETRON 4 MG/2 ML VIAL IVP PRN ×2 (05:24→21:15)
[2020-05-23] MEDS: DULoxetine HCL 60 MG CAPSULE.DR PO SCH ×2 (10:07→20:28)
[2020-05-23] MEDS: SUCRALFATE 1 GM TAB PO SCH ×2 (10:07→20:28)
[2020-05-23] MEDS: PANTOPRAZOLE 40 MG/10 ML VIAL IVP SCH ×2 (10:07→20:28)
[2020-05-23] MEDS: LORATADINE 10 MG TAB PO SCH (10:08)
[2020-05-23] MEDS: TOPIRAMATE 25 MG TAB PO SCH ×2 (10:08→20:30)
[2020-05-23] MEDS: LITHIUM CARBONATE 300 MG CAP PO SCH ×2 (10:08→20:29)
[2020-05-23] MEDS: norgestimate-ethinyl estradioL 1 EACH TABLET PO SCH (10:09)
[2020-05-23] MEDS: LEVOTHYROXINE 125 MCG TAB PO SCH (10:09)
[2020-05-23] MEDS: HEPARIN SODIUM,PORCINE 5,000 UNIT/ML 1 ML VIAL SQ SCH ×2 (10:09→20:28)
[2020-05-23] MEDS: PROCHLORPERAZINE 10 MG TAB PO PRN (11:11)
[2020-05-23] MEDS ORDERED: IOPAMIDOL CONTRAST (ORAL USE) VIAL PO PRN (11:58)
--- NOTE | 2020-05-23 12:00 | P.PN ---
Subjective Progress Note Date: 05/23/20 Principal diagnosis: Dysphagia Patient vomiting again this morning. Complaining of mild pain. No fevers. Objective - Vital Signs Vital signs: Vital Signs Temp 98.5 F 05/23/20 06:21 Pulse 83 05/23/20 06:21 Resp 16 05/23/20 06:21 BP 127/86 05/23/20 06:21 Pulse Ox 95 05/23/20 06:21 Intake & Output 05/22/20 05/23/20 05/23/20 18:59 06:59 18:59 Other: Voiding Method Toilet # Voids 2 2 1 - Exam Abdomen: Soft, nontender, nondistended - Labs CBC & Chem 7: 05/19/20 06:19 05/19/20 06:19 Assessment and Plan (1) Dehydration Narrative/Plan: Patient with ongoing dysphagia and intermittent episodes of pain and vomiting. We'll check CT abdomen with oral contrast of this time. If symptoms persist consider upper endoscopy. Current Visit: Yes Status: Acute Code(s): E86.0 - DEHYDRATION SNOMED Code(s): 24971126
--- NOTE | 2020-05-23 13:52 | CT ---
EXAMINATION TYPE: CT abdomen w con DATE OF EXAM: 05/23/2020 COMPARISON: Upper GI 05/17/[address] abdomen 01/10/2018 HISTORY: 24-year-old female Nausea, vomiting, status post sleeve gastrectomy TECHNIQUE: Contiguous axial scanning of the abdomen following administration of 100 ml Isovue 300 IV contrast. Delayed images through the kidneys and coronal/sagittal reconstructions performed. CT DLP: 1235.4 mGycm Automated exposure control for dose reduction was used. FINDINGS: Heart normal size without pericardial effusion. Lung bases clear without pleural effusion. Post surgical changes of sleeve gastrectomy. There is normal orientation of the sleeve. No abnormal r etained ingested debris within the distal esophagus or proximal portion of the stomach. Oral contrast has reached into the colon. Small amount remains within the sleeve and proximal duodenum. Liver enlarged at 20.0 cm. There is low attenuation of the parenchyma suggesting fatty infiltration. Portal venous system is patent. No biliary ductal dilatation. No dilated small bowel, free fluid, or free air. Cholecystectomy clips. Adrenal glands, kidneys, spleen with hilar splenule, and pancreas appear within normal limits. No mesenteric or retroperitoneal lymphadenopathy. The pelvis is not imaged. Bones: No osseous destructive process. IMPRESSION: 1. THE PATIENT'S ORAL CONTRAST HAS REACHED THE COLON. THERE IS TRACE CONTRAST RETAINED ALONG THE SLEE VE AND DUODENUM BUT NO CONTRAST REMAINS WITHIN THE ESOPHAGUS OR PROXIMAL STOMACH. NO ABNORMAL DILATAT ION. 2. HEPATOMEGALY (20.0 CM) WITH HEPATIC STEATOSIS.
[2020-05-23] MEDS: PROMETHAZINE INJ 12.5 MG in SODIUM CHLORIDE 0.9% 50 ML IVPB PRN (15:58)
[2020-05-23] MEDS: traZODone HCL 100 MG TAB PO SCH (20:27)
[2020-05-23] MEDS: MONTELUKAST 10 MG TAB PO SCH (20:28)
[2020-05-23 22:28] VITALS: RESP 16
[2020-05-24] MEDS: HYDROcodone/APAP 15 ML SOLUTION PO PRN ×2 (00:52→05:59)
[2020-05-24] MEDS: DEXAMETHASONE SOD PHOSPHATE 4 MG/ML 1 ML VIAL IV SCH ×4 (00:53→17:39)
--- NOTE | 2020-05-24 01:37 | PN ---
PROGRESS NOTE DATE OF SERVICE: 05/23/2020 I am covering for Dr. Goldberg. This 24-year-old woman who was admitted to have gastric sleeve surgery also had multiple other medical problems. Patient continues to have vomiting at this time. Abdominal CAT scan was done today which showed the oral contrast has reached his colon. Trace contrast retained along the sleeve and duodenum. Hepatomegaly was also noted with hepatic steatosis. PAST MEDICAL HISTORY: Reviewed. REVIEW OF SYSTEMS: CARDIOVASCULAR SYSTEM: No angina. RESPIRATORY SYSTEM: As mentioned earlier. GI: As mentioned earlier. : No dysuria. NERVOUS SYSTEM: No numbness or weakness. MEDICATIONS: Current medications are reviewed and include: 1. [place] elixir. 2. Decadron. 3. Cymbalta. 4. Flonase. 5. Heparin. 6. Synthroid. 7. [place]. 8. Claritin. 9. Narcan. 10.Protonix. 11.Compazine. 12.Promethazine. 13.Carafate. 14.Imitrex. 15.Topamax. 16.Desyrel. Doses were reviewed. PHYSICAL EXAMINATION: Patient is alert and oriented x3. Pulse is 83, blood pressure 127/86, respirations 16, temperature 98.5, pulse ox 95% on room air. HEENT: Conjunctivae normal. Oral mucosa moist. NECK: No jugular venous distention. No carotid bruit. No lymph node enlargement. CARDIOVASCULAR: S1, S2 muffled. RESPIRATORY: Breath sounds diminished at the bases. A few scattered rhonchi and crackles. ABDOMEN: Soft. Mild diffuse discomfort on palpation. LEGS: No edema. NERVOUS SYSTEM: No focal deficits. LABS: WBC 5.7, hemoglobin 11.2, sodium 145, potassium 4.4, chloride is 116. ASSESSMENT: 1. Incessant vomiting and nausea, possible acute gastritis. 2. Recent gastric sleeve surgery. 3. Dehydration, present on admission. 4. Headaches. 5. Hypokalemia. 6. Anemia, normocytic anemia of chronic disease. 7. Hypoalbuminemia. 8. Increased AST, ALT. 9. Obesity with body mass index of 39.1. 10.History of asthma. 11.History of fibromyalgia. 12.History of gastroesophageal reflux disease. 13.History of cirrhosis of liver with hepatitis C. 14.History of esophagitis. 15.History of irritable bowel syndrome. 16.History of bariatric surgery. 17.History of cholecystectomy. 18.History of anxiety, depression, posttraumatic stress disorder. RECOMMENDATIONS AND DISCUSSION: In this 24-year-old woman who presented with multiple complex medical issues, we will monitor the patient closely, continue the current medications and continues symptomatic treatment. Otherwise I would recommend a urine drug screen as well as lithium level also. Symptomatic treatment will be continued and Protonix twice daily IV is also recommended. Otherwise, closely follow with multiple consultants. Prognosis guarded. Further recommendations to follow. Dr. Goldberg will follow tomorrow. MMMARIA CL / IJN: [id number] /
[2020-05-24] MEDS: SUMAtriptan succinate 50 MG TAB PO PRN (05:23)
[2020-05-24] MEDS: LEVOTHYROXINE 125 MCG TAB PO SCH (06:00)
[2020-05-24] MEDS: HEPARIN SODIUM,PORCINE 5,000 UNIT/ML 1 ML VIAL SQ SCH ×2 (08:18→22:20)
[2020-05-24] MEDS: TOPIRAMATE 25 MG TAB PO SCH ×2 (08:18→22:18)
[2020-05-24] MEDS: LITHIUM CARBONATE 300 MG CAP PO SCH ×2 (08:18→22:17)
[2020-05-24] MEDS: DULoxetine HCL 60 MG CAPSULE.DR PO SCH ×2 (08:19→22:16)
[2020-05-24] MEDS: PANTOPRAZOLE 40 MG/10 ML VIAL IVP SCH ×2 (08:19→22:21)
[2020-05-24] MEDS: SUCRALFATE 1 GM TAB PO SCH ×2 (08:19→22:26)
[2020-05-24] MEDS: LORATADINE 10 MG TAB PO SCH (08:19)
[2020-05-24] MEDS: norgestimate-ethinyl estradioL 1 EACH TABLET PO SCH (08:20)
--- NOTE | 2020-05-24 12:23 | P.PN ---
Subjective Progress Note Date: 05/24/20 Chana Alamo is a 24 yo F with PMH morbid obesity, recent gastric sleeve on 04/26, fibromyalgia, bipolar disorder. She presented to the ED complaining of nausea and vomiting despite trying zofran at home. She notes she had been able to advance her diet to soft foods and has been tolerating this well but over the past few days has been increasingly bloated and nauseated. On presentation vitals and labs stable. 05-18-20 maintained on IV fluid hydration, PPI, antibiotics with Phenergan added to med regimen yesterday .complains of nausea and emesis this morning. Positive soft bowel movements. T-max 99.1, normal WBC. Potassium 3.3, magnesium 1.7. Esophagram reported mild narrowing, mild obstruction current episodes of gastroesophageal reflux disease. Denies chest pain, palpitations or shortness of breath. 05/19/2020 reports nausea and vomiting,having diarrhea. Denies abdominal pain.complains of a migraine headache. Left ear pain, assessed with otoscope, with normal appearance.denies sore throat, cough.afebrile, normal WBC. 05/24/2020 In chair, feels better. Reports positive emesis last night after consuming Jell-O and soup. This morning denies nausea or vomiting, attempting oatmeal.. Maintained on [place] with improving abdominal pain. [place] level subtherapeutic. Objective - Vital Signs Vital signs: Vital Signs Temp 98.1 F 05/24/20 04:42 Pulse 72 05/24/20 04:42 Resp 16 05/23/20 19:55 BP 131/85 05/24/20 04:42 Pulse Ox 99 05/24/20 04:42 Intake & Output 05/23/20 05/24/20 05/24/20 18:59 06:59 18:59 Intake Total 1000 Balance 1000 Intake: Intake, IV Titration 1000 Amount 0.9% NaCl with KCl 40 Meq 1000 /l 1,000 ml @ 60 mls/hr IV .[id number] [facility] Rx#: [id number] Other: Voiding Method Toilet # Voids 1 0 1 # Bowel Movements 0 # [place] 0 - Exam General: well nourished, well developed, morbidly obese, NAD. Vitals reviewed Eyes: PERRL, EOMI, conjunctiva normal HENT: normocephalic, mucus membranes moist Neck: supple, no JVD Lungs: normal respiratory effort, no wheezes or rales CV: Regular rate and rhythm, no murmur. Peripheral pulses 2+ Abdomen: soft, nondistended, no organomegaly. nontender, positive bowel sounds. Skin: warm and dry. Neuro: A&Ox3, normal mood and affect - Labs CBC & Chem 7: 05/19/20 06:19 05/19/20 06:19 Assessment and Plan Assessment: (1) Dehydration secondary to nausea and vomiting and patient with history of recent sleeve gastrectomy Current Visit: Yes Status: Acute Code(s): E86.0 - DEHYDRATION SNOMED Code(s): 32505229 (2) History of sleeve gastrectomy Current Visit: Yes Status: Acute Code(s): Z90.3 - ACQUIRED ABSENCE OF STOMACH [PART OF] SNOMED Code(s): 903645977359095 (3) Bipolar disorder Current Visit: No Status: Acute Code(s): F31.9 - BIPOLAR DISORDER, UNSPECIFIED SNOMED Code(s): 57768535 (4) Fibromyalgia Current Visit: No Status: Acute Code(s): M79.7 - FIBROMYALGIA SNOMED Code(s): 451006843 (5) hypothyroidism Plan: Continue on current medication regime ,monitoring and symptomatic treatment. Maintain antibiotics, PPI. Increase ambulation as tolerated. Discharge planning in progress. The impression and plan of care has been dictated as directed. : I performed a history and examination of this patient, discussed the same with the dictator. I agree with the dictator's note ,documented as a scribe. Any additional findings or plans will be noted.
[2020-05-24] MEDS: 0.9% NACL WITH KCL 40 MEQ/L 1,000 ML IV SCH (12:30)
--- NOTE | 2020-05-24 14:43 | P.PN ---
Subjective Progress Note Date: 05/24/20 CHIEF COMPLAINT: Nausea vomiting and abdominal pain HISTORY OF PRESENT ILLNESS: This is a 24-year-old female with a known history of morbid obesity, fibromyalgia, bipolar disorder and cholecystectomy. She had a laparoscopic sleeve gastrectomy with Dr. James on 04/26/2020. P patient reporting having bowel movements. She did have one small episode of vomiting yesterday morning. Computed tomography scan abdomen and contrast has reached the colon. There is trace contrast retained along the sleeve and duodenal but no contrast remains within the esophagus proximal stomach. No abnormal dilation. PHYSICAL EXAM: VITAL SIGNS: Reviewed. GENERAL: Well-developed in no acute distress. HEENT: No sclera icterus. Extraocular movements grossly intact. Moist buccal mucosa. Head is atraumatic, normocephalic. ABDOMEN: Soft. Nondistended. Nontender with palpation NEUROLOGIC: Alert and oriented. Cranial nerves II through XII grossly intact. ASSESSMENT: 1. Nausea, vomiting and abdominal pain 2. Recent laparoscopic sleeve gastrectomy on 04/26/2020 3. History of bipolar 4. History of morbid obesity 5. Elevated LFTs likely due to history of fatty liver PLAN: -Continue Decadron 4 mg IV every 6 hours -Continue bariatric fulls diet -Continue IV Protonix 40 mg daily -Continue Zofran as needed for nausea -Encourage patient to ambulate -Also will have patient's pills crushed to hopefully help with her nausea and vomiting after taking pills -Hep-Lock IV fluids. Discontinue all pain meds -GI prophylaxis Protonix and DVT prophylaxis subcu heparin -Anticipate discharge possibly tomorrow Physician Marketing Liaison note has been reviewed by physician. Signing provider agrees with the documented findings, assessment, and plan of care. Objective - Vital Signs Vital signs: Vital Signs Temp 98.6 F 05/24/20 13:00 Pulse 120 H 05/24/20 13:00 Resp 16 05/24/20 13:00 BP 126/86 05/24/20 13:00 Pulse Ox 97 05/24/20 13:00 Intake & Output 05/23/20 05/24/20 05/24/20 18:59 06:59 18:59 Intake Total 1000 Balance 1000 Weight 93.894 kg Intake: Intake, IV Titration 1000 Amount 0.9% NaCl with KCl 40 Meq 1000 /l 1,000 ml @ 60 mls/hr IV .[id number] [facility] Rx#: [id number] Other: Voiding Method Toilet # Voids 1 0 1 # Bowel Movements 0 # [place] 0 - Labs CBC & Chem 7: 05/19/20 06:19 05/19/20 06:19
[2020-05-24] MEDS: ACETAMINOPHEN TAB 325 MG TAB PO PRN (17:46)
[2020-05-24] MEDS: ONDANSETRON 4 MG/2 ML VIAL IVP PRN (20:24)
[2020-05-24] MEDS: MONTELUKAST 10 MG TAB PO SCH (22:19)
[2020-05-24] MEDS: traZODone HCL 100 MG TAB PO SCH (22:19)
[2020-05-25] MEDS: DEXAMETHASONE SOD PHOSPHATE 4 MG/ML 1 ML VIAL IV SCH ×3 (01:35→11:17)
[2020-05-25 04:28] VITALS: BP 115/75; PULSE 65; TEMP 98
[2020-05-25] MEDS: ACETAMINOPHEN TAB 325 MG TAB PO PRN (05:10)
[2020-05-25] MEDS: LEVOTHYROXINE 125 MCG TAB PO SCH (05:51)
[2020-05-25] MEDS: HEPARIN SODIUM,PORCINE 5,000 UNIT/ML 1 ML VIAL SQ SCH (07:43)
[2020-05-25] MEDS: PANTOPRAZOLE 40 MG/10 ML VIAL IVP SCH (07:43)
[2020-05-25] MEDS: LORATADINE 10 MG TAB PO SCH (07:44)
[2020-05-25] MEDS: DULoxetine HCL 60 MG CAPSULE.DR PO SCH (07:44)
[2020-05-25] MEDS: LITHIUM CARBONATE 300 MG CAP PO SCH (07:44)
[2020-05-25] MEDS: norgestimate-ethinyl estradioL 1 EACH TABLET PO SCH (07:44)
[2020-05-25] MEDS: TOPIRAMATE 25 MG TAB PO SCH (07:44)
[2020-05-25] MEDS: SUCRALFATE 1 GM TAB PO SCH (07:44)
[2020-05-25] MEDS: SUMAtriptan succinate 50 MG TAB PO PRN (09:53)
[2020-05-25] MEDS: ONDANSETRON 4 MG/2 ML VIAL IVP PRN (09:53)
--- NOTE | 2020-05-25 10:17 | P.DS ---
Providers Date of admission: 05/18/20 13:26 Expected date of discharge: 05/25/20 Attending physician: Sylvester James Consults: 05/16/20 15:08 Consult Physician Routine Consulting Provider: Lon Goldberg Consult Reason/Comments: Medical management Do you want consulting provider notified?: Yes Primary care physician: Marysol Rose Hospital Course: Discharge diagnosis 1. Nausea, vomiting and abdominal pain 2. Recent laparoscopic sleeve gastrectomy on 04/26/2020 3. History of bipolar 4. History of morbid obesity 5. Elevated LFTs likely due to history of fatty liver Hospital course This is a 24-year-old female with a known history of morbid obesity, fibromyalgia, bipolar disorder and cholecystectomy. She had a laparoscopic sleeve gastrectomy with Dr. James on 04/26/2020. She presented with nausea, vomiting and abdominal pain. Patient's symptoms improved. No significant findings on esophagram for computed tomography scan of the abdomen. She tolerated diet. She is having regular bowel movements. She has been up and ambulating. She is no longer complaining of pain. Pain medications were discontinued. She's afebrile. She is stable for discharge. Please refer to chart for any further details. [employer] note has been reviewed by physician. Signing provider agrees with the documented findings, assessment, and plan of care. Patient Condition at Discharge: Stable Plan - Discharge Summary Discharge Rx Participant: No New Discharge Prescriptions: Continue Ondansetron [Zofran] 4 mg PO TID PRN PRN Reason: Nausea Prochlorperazine [Compazine] 10 mg PO TID PRN PRN Reason: Nausea Montelukast Sodium [Singulair] 10 mg PO HS Fluticasone Nasal [place] [Flonase Nasal [place]] 2 spr EA NOSTRIL DAILY PRN PRN Reason: Allergy Symptoms Sucralfate [Carafate] 1 gm PO BID No Action [place] Carbonate 300 mg PO QAM Levothyroxine Sodium [Synthroid] 125 mcg PO QAM Norgestimate-Ethinyl Estradiol [Sprintec 28 Day Tablet] 1 tab PO DAILY Flunisolide [Aerospan] 2 puff INHALATION RT-BID PRN PRN Reason: Dyspnea DULoxetine HCL [Cymbalta] 60 mg PO BID EPINEPHrine (Auto Inject) [Epipen] 0.3 mg IM DAILY PRN PRN Reason: Allergic Reaction Loratadine [Claritin] 10 mg PO DAILY Topiramate [Topiramate ER] 100 mg PO DAILY Omeprazole [PriLOSEC] 40 mg PO DAILY #30 cap traZODone HCL [Desyrel] 200 mg PO HS [place] Carbonate 600 mg PO HS Rizatriptan Benzoate [Rizatriptan] 10 mg PO DAILY PRN PRN Reason: Migraine Headache Discharge Medication List [place] Carbonate 300 mg PO QAM 08/27/15 [History] Levothyroxine Sodium [Synthroid] 125 mcg PO QAM 01/06/17 [History] Norgestimate-Ethinyl Estradiol [Sprintec 28 Day Tablet] 1 tab PO DAILY 02/04/18 [History] DULoxetine HCL [Cymbalta] 60 mg PO BID 01/19/19 [History] EPINEPHrine (Auto Inject) [Epipen] 0.3 mg IM DAILY PRN 01/19/19 [History] Flunisolide [Aerospan] 2 puff INHALATION RT-BID PRN 01/19/19 [History] Loratadine [Claritin] 10 mg PO DAILY 05/26/19 [History] Topiramate [Topiramate ER] 100 mg PO DAILY 04/26/20 [History] Omeprazole [PriLOSEC] 40 mg PO DAILY #30 cap 04/29/20 [Rx] [place] Carbonate 600 mg PO HS 04/30/20 [History] Rizatriptan Benzoate [Rizatriptan] 10 mg PO DAILY PRN 04/30/20 [History] traZODone HCL [Desyrel] 200 mg PO HS 04/30/20 [History] Fluticasone Nasal [place] [Flonase Nasal [place]] 2 spr EA NOSTRIL DAILY PRN 05/16/20 [History] Montelukast Sodium [Singulair] 10 mg PO HS 05/16/20 [History] Ondansetron [Zofran] 4 mg PO TID PRN 05/16/20 [History] Prochlorperazine [Compazine] 10 mg PO TID PRN 05/16/20 [History] Sucralfate [Carafate] 1 gm PO BID 05/16/20 [History] Follow up Appointment(s)/Referral(s): [facility], [NON-STAFF] - Marysol Rose DO [Primary Care Provider] [place] [place] - 05/30/20 Activity/Diet/Wound Care/Special Instructions: Diet bariatric full liquid Very light activity until you are reevaluated at your follow up appointment with your surgeon Discharge Disposition: HOME SELF-CARE
--- NOTE | 2020-05-25 10:27 | P.PN ---
Subjective Progress Note Date: 05/25/20 Chana Alamo is a 24 yo F with PMH morbid obesity, recent gastric sleeve on 04/26, fibromyalgia, bipolar disorder. She presented to the ED complaining of nausea and vomiting despite trying zofran at home. She notes she had been able to advance her diet to soft foods and has been tolerating this well but over the past few days has been increasingly bloated and nauseated. On presentation vitals and labs stable. 05-18-20 maintained on IV fluid hydration, PPI, antibiotics with Phenergan added to med regimen yesterday .complains of nausea and emesis this morning. Positive soft bowel movements. T-max 99.1, normal WBC. Potassium 3.3, magnesium 1.7. Esophagram reported mild narrowing, mild obstruction current episodes of gastroesophageal reflux disease. Denies chest pain, palpitations or shortness of breath. 05/19/2020 reports nausea and vomiting,having diarrhea. Denies abdominal pain.complains of a migraine headache. Left ear pain, assessed with otoscope, with normal appearance.denies sore throat, cough.afebrile, normal WBC. 05/24/2020 In chair, feels better. Reports positive emesis last night after consuming Jell-O and soup. This morning denies nausea or vomiting, attempting oatmeal.. Maintained on [place] with improving abdominal pain. [place] level subtherapeutic. 05/25/2020 Has remained off of pain medications with significant clinical improvement. Tolerating diet, no nausea, no vomiting, no diarrhea. Denies abdominal pain. Ambulating, tolerating exertion well. Denies lightheadedness, dizziness or focal deficits. Denies chest pain, palpitations or shortness of breath. Discharge planning in progress as per surgery. Objective - Vital Signs Vital signs: Vital Signs Temp 98.0 F 05/25/20 04:28 Pulse 65 05/25/20 04:28 Resp 16 05/25/20 04:28 BP 115/75 05/25/20 04:28 Pulse Ox 99 05/25/20 04:28 Intake & Output 05/24/20 05/25/20 05/25/20 18:59 06:59 18:59 Intake Total 360 0 Balance 360 0 Weight 93.894 kg Intake: Intake, IV Titration 360 0 Amount 0.9% NaCl with KCl 40 Meq 360 0 /l 1,000 ml @ 60 mls/hr IV .[id number] JERARDO Rx#: [id number] Other: Voiding Method Toilet # Voids 1 0 # Bowel Movements 0 # [place] 0 - Exam General: well nourished, well developed, morbidly obese, NAD. Vitals reviewed Eyes: PERRL, EOMI, conjunctiva normal HENT: normocephalic, mucus membranes moist Neck: supple, no JVD Lungs: normal respiratory effort, no wheezes or rales CV: Regular rate and rhythm, no murmur. Peripheral pulses 2+ Abdomen: soft, nondistended, no organomegaly. nontender, positive bowel sounds. Skin: warm and dry. Neuro: A&Ox3, normal mood and affect - Labs CBC & Chem 7: 05/19/20 06:19 05/19/20 06:19 Assessment and Plan Assessment: (1) Dehydration secondary to nausea and vomiting and patient with history of recent sleeve gastrectomy Current Visit: Yes Status: Acute Code(s): E86.0 - DEHYDRATION SNOMED Code(s): 01745423 (2) History of sleeve gastrectomy Current Visit: Yes Status: Acute Code(s): Z90.3 - ACQUIRED ABSENCE OF STOMACH [PART OF] SNOMED Code(s): 536297066957382 (3) Bipolar disorder Current Visit: No Status: Acute Code(s): F31.9 - BIPOLAR DISORDER, UNSPECIFIED SNOMED Code(s): 05660336 (4) Fibromyalgia Current Visit: No Status: Acute Code(s): M79.7 - FIBROMYALGIA SNOMED Code(s): 533793933 (5) hypothyroidism (6) lithium level mildly subtherapeutic, suspect secondary to nausea and vomiting, further follow-up outpatient in clinic. Plan: Continue on current medication regime ,monitoring and symptomatic treatment. Discharge planning in progress as per primary. Follow-up with PCP in 3 days. The impression and plan of care has been dictated as directed. : I performed a history and examination of this patient, discussed the same with the dictator. I agree with the dictator's note ,documented as a scribe. Any additional findings or plans will be noted.
--- NOTE | 2020-05-28 09:39 | CDI ---
Documentation Clarification Form Date: 05/28/20 From: Brandie Perez CCS Phone: If you have a question about this query, please contact Celia Henriquez, Floor Sweeper at [phone] between 8am and 5pm. Admit Date: 05/18/20 Discharge Date:05/25/20 Patient Name: Chana Alamo Visit Number: [id number] ATTENTION: The Clinical Documentation Specialists (CDI) and [facility] Coding Staff appreciate your assistance in clarifying documentation. Please respond to the clarification below the line at the bottom and electronically sign. The CDI & [facility] Coding staff will review the response and follow-up if needed. Please note: Queries are made part of the Legal Health Record. If you have any questions, please contact the author of this message via ITS. Dear Dr. James, The patients principal diagnosis has not been clearly identified and requires clarification. Admitted to OBS on 05/16 with dehydration, nausea, vomiting, diarrhea. Admitted from OBS to IP on 05/18 History/Risk factors: Post bariatric surgery, Cirrhosis, Hepatitis, Gastroparesis, Esophageal obstruction Clinical Indicators: Dehydration, Esophageal obstruction, Nausea/Vomiting, Abdominal pain Lab findings: Potassium 05/17 3.3, BUN 05/17 <2, Sodium 9/1 138 Esophagram: Mild narrowing at the proximal end of the sleeve.There may be a relative mild obstruction. 2.Recurrent episodes of gastroesophageal reflux. Treatment: Zofran 4 mg IV, Protonix 40 mg IVP, Phenergan 12.5 mg IVPB, Potassium replacement, Saline 0.9% 1,000 ml IV 125 mls/hr Consults: Ashlyn In your professional opinion, can you please clarify which diagnosis, after study, was the reason chiefly responsible for the admission from OBS to IP? Dehydration Hypokalemia Esophageal obstruction Abdominal pain Nausea and vomiting Gastritis Dehydration and nausea MTDD
== END 2020-05-25 12:32 | disposition home or self-care (01) | DRG 641 ==
LOC: EC 09:25 → 6PED 11:30 → OBSVTOIN 05-18 13:26 → 6NMEDSUR 05-21 23:08
PROVIDERS: ADMIT Surgery; ATTEND Surgery
DX: E86.0 Dehydration (principal); E87.2 Acidosis; K22.2 Esophageal obstruction; D63.8 Anemia in other chronic diseases classified elsewhere; E88.09 Other disorders of plasma-protein metabolism, not elsewhere classified; K74.60 Unspecified cirrhosis of liver; K76.0 Fatty (change of) liver, not elsewhere classified; F31.9 Bipolar disorder, unspecified; E66.01 Morbid (severe) obesity due to excess calories; K21.9 Gastro-esophageal reflux disease without esophagitis; J45.909 Unspecified asthma, uncomplicated; B19.20 Unspecified viral hepatitis C without hepatic coma; E03.9 Hypothyroidism, unspecified; M79.7 Fibromyalgia; K58.0 Irritable bowel syndrome with diarrhea; G43.909 Migraine, unspecified, not intractable, without status migrainosus; K31.84 Gastroparesis; F43.10 Post-traumatic stress disorder, unspecified; E87.6 Hypokalemia; E83.42 Hypomagnesemia; Z71.3 Dietary counseling and surveillance; Z68.39 Body mass index [BMI] 39.0-39.9, adult; Z98.84 Bariatric surgery status; Z79.890 Hormone replacement therapy; Z79.899 Other long term (current) drug therapy; Z90.49 Acquired absence of other specified parts of digestive tract; Z98.890 Other specified postprocedural states; Z87.19 Personal history of other diseases of the digestive system; Z88.6 Allergy status to analgesic agent; Z91.040 Latex allergy status; Z88.0 Allergy status to penicillin; Z91.013 Allergy to seafood; Z88.8 Allergy status to other drugs, medicaments and biological substances; Z91.018 Allergy to other foods; Z82.5 Family history of asthma and other chronic lower respiratory diseases; Z83.79 Family history of other diseases of the digestive system; Z82.49 Family history of ischemic heart disease and other diseases of the circulatory system
CPT/HCPCS: 36415; 74160; 74246; 80053; 80178; 81001; 82150; 83605; 83690; 83735; 84132; 85025; 87086; 96361; 96374; 96375; 99284

== ENCOUNTER → 2020-05-30 | Outpatient (CLI) | payer OTHER ==
--- NOTE | 2020-05-30 14:57 | P.HPBAR ---
Bariatric H&P - History & Physicial H&P Date: 05/30/20 History & Physicial: Visit/CC: Patient initial contact: Initial weight: 113.307 kg Initial weight in pounds: Height: Initial BMI: Last weight: Current weight: 199 Current weight in pounds: Current BMI: [place] body weight (based on NIH guidelines): Excess body weight loss: The patient is a 24 year-old F who presents for Bariatric Assessment. Patient presents today for sleeve gastric follow-up. She's had very minimal GERD since she's left the hospital. She denies any dysphagia Past Medical History Past Medical History: Asthma, Chest Pain / Angina, Fibromyalgia, GERD/Reflux, Liver Disease, Thyroid Disorder Additional Past Medical History / Comment(s): Cirrhosis of the liver and hepatitis C (pt states these are partly due to her genetics and partly due to mental health medications she has been taking since age 4), Esophagitis. IBS. PART OF STOMACH NON-FUNCTIONING. BLOOD IN STOOL, 04/08 pt reports VOMITING DAILY due to abdominal pain and migraines (vomited blood 1 week ago)., "fast heart beat", gastroporesis, on actos till 1 week ago-wasn't taking for diabetes History of Any Multi-Drug Resistant Organisms: None Reported Past Surgical History: Appendectomy, Bariatric Surgery, Cholecystectomy, Tonsillectomy Additional Past Surgical History / Comment(s): NASAL Septum repair. COLONOSCOPY., gastric sleeve Past Anesthesia/Blood Transfusion Reactions: Motion Sickness Additional Past Anesthesia/Blood Transfusion Reaction / Comm: woke up once during surgery Past Psychological History: Anxiety, Depression, PTSD Additional Psychological History / Comment(s): 04/20/19: Takes [place] and Cymbalta daily Smoking Status: Never smoker Past Alcohol Use History: None Reported Past Drug Use History: None Reported - Past Family History Mother Family Medical History: No Reported History Father Family Medical History: Liver Disease Additional Family Medical History / Comment(s): at age 61 from COPD. ALso had cirrhosis,hepatitis C, pancreatitis, heart attacks (multiple) and esophagus disease Surgical - Exam - General well developed, well nourished, no distress - Eyes PERRL - ENT normal pinna - Neck no masses - Respiratory normal expansion - Cardiovascular Rhythm: regular - Abdomen Abdomen: soft, non tender Bariatric Assessment & Plan Plan: Status post sleeve gastrectomy. Patient is doing quite well. She'll follow-up in 2 weeks. Her GERD is minimal will be exertional continue to take omeprazole Bariatric Checklist Checklist: Plan: Checklist: EGD: 1. Hiatal hernia: 2. H. Pylori: HgbA1c: Vitamin D: Smoking: Never smoker Primary care physician referral: Marysol Rose Do Psychiatry clearance: Cardiology clearance: Sleep study: Diet journal: VTE risk score: VTE risk level: Rehab needs at discharge:
[2020-05-30 15:14] VITALS: BP 130/89; PULSE 132; RESP 16; TEMP 98.4; BMI 37.5
== END | disposition home or self-care (01) ==
LOC: BARWHC3 14:49
PROVIDERS: ATTEND Surgery
DX: Z48.815 Encounter for surgical aftercare following surgery on the digestive system (principal); K21.9 Gastro-esophageal reflux disease without esophagitis; Z98.84 Bariatric surgery status; E66.01 Morbid (severe) obesity due to excess calories; Z71.3 Dietary counseling and surveillance; Z68.37 Body mass index [BMI] 37.0-37.9, adult
CPT/HCPCS: 97803; G0463; 99211

== ENCOUNTER 2020-06-11 23:47 | Inpatient (IN) | payer OTHER ==
[2020-06-12] MEDS ORDERED: SODIUM CHLORIDE 0.9% 1,000 ML IV STA (00:08)
[2020-06-12] MEDS ORDERED: MORPHINE SULFATE 4 MG/ML SYRINGE IVP STA ×2 (00:18→02:07)
--- NOTE | 2020-06-12 00:19 | ED ---
Abdominal Pain HPI - General Chief Complaint: Abdominal Pain Stated Complaint: Flank/Back Pain Time Seen by Provider: 06/12/20 00:07 Source: patient Mode of arrival: ambulatory Limitations: no limitations - History of Present Illness Initial Comments: Patient is 24-year-old female with history of polynephritis presenting to emergency Department with chief complaint of kidney infection. Patient reports 3 days ago she developed dysuria, increased urgency or frequency. She also reported some hematuria. States that she is also developed right-sided flank pain. She does report having chills but denies any fevers. Denies any nausea or vomiting. Denies taking medication to alleviate the symptoms. Denies vaginal discharge, irritation or fall small. - Related Data Home Medications Medication Instructions Recorded Confirmed [place] Carbonate 300 mg PO QAM 08/27/15 05/16/20 Levothyroxine Sodium [Synthroid] 125 mcg PO QAM 01/06/17 05/16/20 Norgestimate-Ethinyl Estradiol 1 tab PO DAILY 02/04/18 05/16/20 [Sprintec 28 Day Tablet] DULoxetine HCL [Cymbalta] 60 mg PO BID 01/19/19 05/16/20 EPINEPHrine (Auto Inject) [Epipen] 0.3 mg IM DAILY PRN 01/19/19 05/16/20 Flunisolide [Aerospan] 2 puff INHALATION RT-BID PRN 01/19/19 05/16/20 Loratadine [Claritin] 10 mg PO DAILY 05/26/19 05/16/20 Topiramate [Topiramate ER] 100 mg PO DAILY 04/26/20 05/16/20 [place] Carbon[place] 600 mg PO HS 04/30/20 05/16/20 Rizatriptan Benzoate [Rizatriptan] 10 mg PO DAILY PRN 04/30/20 05/16/20 traZODone HCL [Desyrel] 200 mg PO HS 04/30/20 05/16/20 Fluticasone Nasal [place] [Flonase 2 spr EA NOSTRIL DAILY PRN 05/16/20 05/16/20 Nasal [place]] Montelukast Sodium [Singulair] 10 mg PO HS 05/16/20 05/16/20 Ondansetron [Zofran] 4 mg PO TID PRN 05/16/20 05/16/20 Prochlorperazine [Compazine] 10 mg PO TID PRN 05/16/20 05/16/20 Sucralfate [Carafate] 1 gm PO BID 05/16/20 05/16/20 Previous Rx's Medication Instructions Recorded Omeprazole [PriLOSEC] 40 mg PO DAILY #30 cap 04/29/20 Cephalexin [Keflex Susp] 10 ml PO Q6HR #400 ml 06/12/20 Allergies Allergy/AdvReac Type Severity Reaction Status Date / Time fentanyl Allergy Rash/Hives Verified 06/12/20 00:03 latex Allergy Rash/Hives Verified 06/12/20 00:03 metoclopramide [From Reglan] Allergy Unknown Verified 06/12/20 00:03 Penicillins Allergy Anaphylaxis Verified 06/12/20 00:03 ibuprofen [From Motrin] AdvReac GI Bleed Verified 06/12/20 00:03 prazosin AdvReac Nausea & Verified 06/12/20 00:03 Vomiting grape juice Allergy Anaphylaxis Uncoded 06/12/20 00:03 Seafood Allergy Anaphylaxis Uncoded 06/12/20 00:03 Review of Systems ROS Statement: Those systems with pertinent positive or pertinent negative responses have been documented in the HPI. ROS Other: All systems not noted in ROS Statement are negative. Past Medical History Past Medical History: Asthma, Chest Pain / Angina, Fibromyalgia, GERD/Reflux, Liver Disease, Thyroid Disorder Additional Past Medical History / Comment(s): Cirrhosis of the liver and hepatitis C (pt states these are partly due to her genetics and partly due to mental health medications she has been taking since age 4), Esophagitis. IBS. PART OF STOMACH NON-FUNCTIONING. BLOOD IN STOOL, 04/08 pt reports VOMITING DAILY due to abdominal pain and migraines (vomited blood 1 week ago)., "fast heart beat", gastroporesis, on actos till 1 week ago-wasn't taking for diabetes History of Any Multi-Drug Resistant Organisms: None Reported Past Surgical History: Appendectomy, Bariatric Surgery, Cholecystectomy, Tonsillectomy Additional Past Surgical History / Comment(s): NASAL Septum repair. COLONOSCOPY., gastric sleeve Past Anesthesia/Blood Transfusion Reactions: Motion Sickness Additional Past Anesthesia/Blood Transfusion Reaction / Comment(s): woke up once during surgery Past Psychological History: Anxiety, Depression, PTSD Smoking Status: Never smoker Past Alcohol Use History: None Reported Past Drug Use History: None Reported - Past Family History Father Family Medical History: Liver Disease Additional Family Medical History / Comment(s): at age 61 from COPD. ALso had cirrhosis,hepatitis C, pancreatitis, heart attacks (multiple) and esophagus disease General Exam Limitations: no limitations General appearance: alert, in no apparent distress, obese Head exam: Present: atraumatic, normocephalic, normal inspection Eye exam: Present: normal appearance, PERRL, EOMI Pupils: Present: normal accommodation ENT exam: Present: normal exam, normal oropharynx, mucous membranes moist Neck exam: Present: normal inspection, full ROM. Absent: tenderness Respiratory exam: Present: normal lung sounds bilaterally. Absent: respiratory distress, wheezes, rales Cardiovascular Exam: Present: regular rate, normal rhythm, normal heart sounds GI/Abdominal exam: Present: soft, tenderness (Right flank). Absent: distended, guarding, rebound, rigid Extremities exam: Present: normal inspection, full ROM, normal capillary refill. Absent: tenderness Back exam: Present: normal inspection, full ROM, tenderness, CVA tenderness (R) Neurological exam: Present: alert, oriented X3 Psychiatric exam: Present: normal affect, normal mood Skin exam: Present: warm, dry, intact, normal color Course Vital Signs 06/12/20 00:00 Temperature 99.7 F H Pulse Rate 116 H Respiratory 20 Rate Blood Pressure 143/90 O2 Sat by Pulse 97 Oximetry Medical Decision Making - Medical Decision Making Patient is 24-year-old female presenting to emergency Department with a chief complaint of a kidney infection. She does have prior history of pyelonephritis. On exam she has right CVA tenderness. CBC reveals leukocytosis of 16.1 K. UA shows elevated leukocyte esterase, white blood cell's, red blood cells with moderate amounts of blood. Bacteria also noted. Patient is given IV fluids and analgesia. She does not have any nausea or vomiting or diarrhea. Patient will be started on Rocephin after it was discussed with inpatient pharmacy. Test dose was confirmed to make sure the patient does not have any ALLERGIC reaction. Patient will be admitted for further medical management. Case discussed with physician. Admitting physician is . - Lab Data Result diagrams: 06/12/20 00:49 06/12/20 00:49 Lab Results 06/12/20 06/12/20 06/12/20 Range/Units 00:49 00:49 00:49 WBC 16.1 H (3.8-10.6) k/uL RBC 5.06 (3.80-5.40) m/uL Hgb 13.1 (11.4-16.0) gm/dL Hct 42.0 (34.0-46.0) % MCV 82.9 (80.0-100.0) fL MCH 25.8 (25.0-35.0) pg MCHC 31.2 (31.0-37.0) g/dL RDW 15.3 (11.5-15.5) % Plt Count 313 (150-450) k/uL Neutrophils % 69 % Lymphocytes % 22 % Monocytes % 4 % Eosinophils % 4 % Basophils % 0 % Neutrophils # 11.0 H (1.3-7.7) k/uL Lymphocytes # 3.6 (1.0-4.8) k/uL Monocytes # 0.7 (0-1.0) k/uL Eosinophils # 0.6 (0-0.7) k/uL Basophils # 0.0 (0-0.2) k/uL Hypochromasia Slight Sodium (137-145) mmol/L Potassium (3.5-5.1) mmol/L Chloride (98-107) mmol/L Carbon Dioxide (22-30) mmol/L Anion Gap mmol/L BUN (7-17) mg/dL Creatinine (0.52-1.04) mg/dL Est GFR (CKD-EPI)AfAm (>60 ml/min/1.73 sqM) Est GFR (CKD-EPI)NonAf (>60 ml/min/1.73 sqM) Glucose (74-99) mg/dL Calcium (8.4-10.2) mg/dL Total Bilirubin (0.2-1.3) mg/dL AST (14-36) U/L ALT (4-34) U/L Alkaline Phosphatase (38-126) U/L Total Protein (6.3-8.2) g/dL Albumin (3.5-5.0) g/dL Urine Color Yellow Urine Appearance Turbid H (Clear) Urine pH 6.5 (5.0-8.0) Ur Specific [place] 1.017 (1.001-1.035) Urine Protein 2+ H (Negative) Urine Glucose (UA) Negative (Negative) Urine Ketones 1+ H (Negative) Urine Blood Moderate H (Negative) Urine Nitrite Negative (Negative) Urine Bilirubin Negative (Negative) Urine Urobilinogen 2.0 (<2.0) mg/dL Ur Leukocyte Esterase Large H (Negative) Urine RBC 139 H (0-5) /hpf Urine WBC >182 H (0-5) /hpf Urine WBC Clumps Many H (None) /hpf Ur Squamous Epith Cells 11 H (0-4) /hpf Urine Bacteria Rare H (None) /hpf Hyaline Casts 4 H (0-2) /lpf Urine Mucus Few H (None) /hpf Urine HCG, Qual Not Detected (Not Detectd) 06/12/20 Range/Units 00:49 WBC (3.8-10.6) k/uL RBC (3.80-5.40) m/uL Hgb (11.4-16.0) gm/dL Hct (34.0-46.0) % MCV (80.0-100.0) fL MCH (25.0-35.0) pg MCHC (31.0-37.0) g/dL RDW (11.5-15.5) % Plt Count (150-450) k/uL Neutrophils % % Lymphocytes % % Monocytes % % Eosinophils % % Basophils % % Neutrophils # (1.3-7.7) k/uL Lymphocytes # (1.0-4.8) k/uL Monocytes # (0-1.0) k/uL Eosinophils # (0-0.7) k/uL Basophils # (0-0.2) k/uL Hypochromasia Sodium 137 (137-145) mmol/L Potassium 3.8 (3.5-5.1) mmol/L Chloride 106 (98-107) mmol/L Carbon Dioxide 21 L (22-30) mmol/L Anion Gap 10 mmol/L BUN 6 L (7-17) mg/dL Creatinine 0.85 (0.52-1.04) mg/dL Est GFR (CKD-EPI)AfAm >90 (>60 ml/min/1.73 sqM) Est GFR (CKD-EPI)NonAf >90 (>60 ml/min/1.73 sqM) Glucose 96 (74-99) mg/dL Calcium 10.0 (8.4-10.2) mg/dL Total Bilirubin 0.6 (0.2-1.3) mg/dL AST 63 H (14-36) U/L ALT 88 H (4-34) U/L Alkaline Phosphatase 108 (38-126) U/L Total Protein 7.1 (6.3-8.2) g/dL Albumin 3.9 (3.5-5.0) g/dL Urine Color Urine Appearance (Clear) Urine pH (5.0-8.0) Ur Specific [place] (1.001-1.035) Urine Protein (Negative) Urine Glucose (UA) (Negative) Urine Ketones (Negative) Urine Blood (Negative) Urine Nitrite (Negative) Urine Bilirubin (Negative) Urine Urobilinogen (<2.0) mg/dL Ur Leukocyte Esterase (Negative) Urine RBC (0-5) /hpf Urine WBC (0-5) /hpf Urine WBC Clumps (None) /hpf Ur Squamous Epith Cells (0-4) /hpf Urine Bacteria (None) /hpf Hyaline Casts (0-2) /lpf Urine Mucus (None) /hpf Urine HCG, Qual (Not Detectd) Disposition Clinical Impression: Pyelonephritis, Flank pain Disposition: ADMITTED IP TO THIS HOSP Condition: Fair Instructions (If sedation given, give patient instructions): Abdominal Pain (ED) Additional Instructions: Patient will be admitted Prescriptions: Cephalexin [Keflex Susp] 10 ml PO Q6HR #400 ml Is patient prescribed a controlled substance at d/c from ED?: No Referrals: Marysol Rose DO [Primary Care Provider] - 1-2 days Time of Disposition: 02:28
[2020-06-12 01:11] LABS: Appearance,Urine Turbid (Clear); Bilirubin,Urine Negative (Negative); Blood,Urine Moderate (Negative); Color,Urine Yellow; Glucose,Urine (UA) Negative (Negative); Ketones,Urine 1+ (Negative); Leukocyte Esterase,Urine Large (Negative); Nitrite,Urine Negative (Negative); PH, Urine 6.5 (5.0-8.0); Protein,Urine 2+ (Negative); Specific Gravity,Urine 1.017 (1.001-1.035)
[2020-06-12 01:12] LABS: Bacteria,Urine Rare /hpf; Hyaline Casts,Urine 4 /lpf (0-2); Mucus,Urine Few /hpf; RBC,Urine 139 /hpf (0-5); Squamous Epithelial Cell,Urine 11 /hpf (0-4); WBC,Urine >182 /hpf (0-5)
[2020-06-12 01:15] LABS: Basophils % (A) 0 %; Eosinophils # (A) 0.6 k/uL (0-0.7); Eosinophils % (A) 4 %; HGB 13.1 gm/dL (11.4-16.0); Hypochromasia Slight; Lymphocytes # (A) 3.6 k/uL (1.0-4.8); Lymphocytes % (A) 22 %; MCH 25.8 pg (25.0-35.0); MCHC 31.2 g/dL (31.0-37.0); MCV 82.9 fL (80.0-100.0); Mean Platelet Volume 8.4; Monocytes # (A) 0.7 k/uL (0-1.0); Monocytes % (A) 4 %; Neutrophils % (A) 69 %; Platelet Count 313 k/uL (150-450); RBC 5.06 m/uL (3.80-5.40); RDW 15.3 % (11.5-15.5); WBC 16.1 k/uL (3.8-10.6)
[2020-06-12 01:17] LABS: ALT 88 U/L (4-34); AST 63 U/L (14-36); African American GFR (CKD) >90 (>60 ml/min/1.73 sqM); Albumin 3.9 g/dL (3.5-5.0); Alkaline Phosphatase 108 U/L (38-126); Anion Gap 10 mmol/L; Blood Urea Nitrogen 6 mg/dL (7-17); Carbon Dioxide 21 mmol/L (22-30); Chloride 106 mmol/L (98-107); Glucose 96 mg/dL (74-99); Non-African American GFR(CKD) >90 (>60 ml/min/1.73 sqM); Potassium 3.8 mmol/L (3.5-5.1); Sodium 137 mmol/L (137-145); Total Bilirubin 0.6 mg/dL (0.2-1.3); Total Protein 7.1 g/dL (6.3-8.2)
[2020-06-12] MEDS ORDERED: cefTRIAXone IN SWFI 1,000 MG/10 ML SYRINGE IVP STA (01:36)
[2020-06-12] MEDS ORDERED: NALOXONE 0.4 MG/ML 1 ML VIAL IV PRN (02:29)
[2020-06-12] MEDS ORDERED: LORazepam 2 MG/ML INJ IV PRN (02:29)
[2020-06-12] MEDS: SODIUM CHLORIDE 0.9% 1,000 ML IV SCH ×4 (02:39→22:52)
[2020-06-12] MEDS ORDERED: diphenhydrAMINE 50 MG/ML 1 ML VIAL IVP STA (02:55)
[2020-06-12] MEDS ORDERED: ACETAMINOPHEN TAB 325 MG TAB PO PRN (03:21)
[2020-06-12] MEDS ORDERED: ONDANSETRON 4 MG/2 ML VIAL IVP STA (06:04)
[2020-06-12] MEDS ORDERED: CALCIUM CARBONATE 500 MG CHEWABLE PO STA (06:05)
[2020-06-12] MEDS: MORPHINE SULFATE 4 MG/ML SYRINGE IV PRN ×3 (06:34→22:52)
[2020-06-12] MEDS ORDERED: FLUTICASONE 50MCG/SPRAY NASAL 16GM EA NOSTRIL PRN (14:07)
[2020-06-12] MEDS ORDERED: diphenhydrAMINE 25 MG CAP PO PRN ×2 (14:07→15:14)
[2020-06-12] MEDS ORDERED: EPINEPHrine 1 MG/ML 1 ML AMP IM PRN (14:07)
[2020-06-12] MEDS ORDERED: FLUNISOLIDE INHALATION PRN (14:07)
[2020-06-12] MEDS: LEVOTHYROXINE 125 MCG TAB PO SCH (15:30)
[2020-06-12] MEDS: DULoxetine HCL 60 MG CAPSULE.DR PO SCH (20:05)
[2020-06-12] MEDS: TOPIRAMATE 25 MG TAB PO SCH (20:05)
[2020-06-12] MEDS: traZODone HCL 100 MG TAB PO SCH (20:05)
[2020-06-12] MEDS: MONTELUKAST 5 MG CHEWABLE PO SCH (20:05)
[2020-06-12] MEDS: ERTAPENEM 1 GM in SODIUM CHLORIDE 0.9% 50 ML IVPB SCH (20:05)
[2020-06-12] MEDS: LITHIUM CARBONATE 300 MG CAP PO SCH (20:06)
--- NOTE | 2020-06-12 21:12 | P.HPIM ---
History of Present Illness H&P Date: 06/12/20 Chief Complaint: Rt Flank Pain Patient is a 24 female with a known history of fibromyalgia, asthma, hypothyroidism, hepatic steatosis, anxiety/depression/PTSD and obesity presents to ER with complaints of abdominal pain mainly in the right upper quadrant and in the right flank area. Patient has been having pain for the past 3 days when she developed dysuria and increased frequency and urgency. Patient states that she was also having blood clots in the urine which has improved since. Does have chills denied any fevers. No complaints of nausea vomiting or diarrhea. Currently new medications recently. No complaints of chest pain or shortness of breath. No cough or sputum production. Patient was given ceftriaxone in the ER. Patient states that she developed cecilio rtness of breath and choking like feeling and itching with the medication. Laboratory data showed WBC 16.1, hemoglobin 13.1 and absolute neutrophil count 11.0 Sodium 137, potassium 3.8, chloride 106, BUN 6 and creatinine 0.85 AST 63, ALT 88 and alk phos 108 Urinalysis showed turbid with moderate blood and large leukocyte esterase with greater than 182 RBCs and WBCs. Beta hCG negative Review of Systems Constitutional: Patient denies any fever . + chills . generalized weakness . no weight loss. Abdomen: Patient denied nausea vomiting and diarrhea . RUQ abdominal pain. Cardiovascular: Patient denies any chest pain or short of breath no palp itations. Respiratory: patient denied any cough is from production. No shortness of breath Neurologic: Patient denied any numbness or tingling headache. Musculoskeletal: Patient denies any complaints of joint swelling or deformity. Skin: Negative Psychiatric: Negative Endocrine: No heat or cold intolerance. No recent weight gain. Genitourinary: +dysuria and hematuria. All other 14 point ROS negative except the above Past Medical History Past Medical History: Asthma, Chest Pain / Angina, Fibromyalgia, GERD/Reflux, Liver Disease, Thyroid Disorder Additional Past Medical History / Comment(s): Cirrhosis of the liver (pt states these are partly due to her genetics and partly due to mental health medications she has been taking since age 4), Esophagitis. IBS. PART OF STOMACH NON- FUNCTIONING. BLOOD IN STOOL sometimes- last time one year ago, "fast heart beat" pt states that normal is around 100bpm, gastroporesis History of Any Multi-Drug Resistant Organisms: None Reported Past Surgical History: Appendectomy, Bariatric Surgery, Cholecystectomy, Tonsillectomy Additional Past Surgical History / Comment(s): NASAL Septum repair. COLON OSCOPY., gastric sleeve-04/26/2020 Past Anesthesia/Blood Transfusion Reactions: Motion Sickness Additional Past Anesthesia/Blood Transfusion Reaction / Comment(s): woke up once during surgery Past Psychological History: Anxiety, Depression, PTSD Additional Psychological History / Comment(s): 04/20/19: Takes Cambalache and Cymbalta daily, agoraphobia Smoking Status: Never smoker Past Alcohol Use History: None Reported Past Drug Use History: None Reported - Past Family History Father Family Medical History: Liver Disease Additional Family Medical History / Comment(s): at age 61 from COPD. ALso had cirrhosis,hepatitis C, pancreatitis, heart attacks (multiple) and esophagus disease Medications and Allergies Home Medications Medication Instructions Recorded Confirmed Type [place] Carbonate 300 mg PO QAM 08/27/15 06/12/20 History Levothyroxine Sodium [Synthroid] 125 mcg PO QAM 01/06/17 06/12/20 History Norgestimate-Ethinyl Estradiol 1 tab PO DAILY 02/04/18 06/12/20 History [Sprintec 28 Day Tablet] DULoxetine HCL [Cymbalta] 60 mg PO BID 01/19/19 06/12/20 History EPINEPHrine (Auto Inject) [Epipen] 0.3 mg IM DAILY PRN 01/19/19 06/12/20 History Flunisolide [Aerospan] 2 puff INHALATION RT-BID PRN 01/19/19 06/12/20 History Topiramate [Topiramate ER] 100 mg PO HS 04/26/20 06/12/20 History [place] Carbonate 600 mg PO HS 04/30/20 06/12/20 History Rizatriptan Benzoate [Rizatriptan] 10 mg PO DAILY PRN 04/30/20 06/12/20 History traZODone HCL [Desyrel] 100 mg PO HS 04/30/20 06/12/20 History Fluticasone Nasal [place] [Flonase 2 spr EA NOSTRIL DAILY PRN 05/16/20 06/12/20 History Nasal [place]] Montelukast Sodium [Singulair] 10 mg PO HS 05/16/20 06/12/20 History Ondansetron [Zofran] 4 mg PO TID PRN 05/16/20 06/12/20 History Prochlorperazine [Compazine] 10 mg PO TID PRN 05/16/20 06/12/20 History Omeprazole [PriLOSEC] 40 mg PO DAILY 06/12/20 06/12/20 History diphenhydrAMINE [Benadryl] 50 mg PO DAILY PRN 06/12/20 06/12/20 History Allergies Allergy/AdvReac Type Severity Reaction Status Date / Time ceftriaxone [From Rocephin] Allergy Itching Verified 06/12/20 13:48 fentanyl Allergy Rash/Hives Verified 06/12/20 09:45 latex Allergy Rash/Hives Verified 06/12/20 09:45 metoclopramide [From Reglan] Allergy Unknown Verified 06/12/20 09:45 Penicillins Allergy Anaphylaxis Verified 06/12/20 09:45 ibuprofen [From Motrin] AdvReac GI Bleed Verified 06/12/20 09:45 prazosin AdvReac Nausea & Verified 06/12/20 09:45 Vomiting grape juice Allergy Anaphylaxis Uncoded 06/12/20 09:45 Seafood Allergy Anaphylaxis Uncoded 06/12/20 09:45 Physical Exam Vitals: Vital Signs Temp Pulse Pulse Resp BP BP Pulse Ox 06/12/20 08:31 97.9 F 78 16 103/72 99 06/12/20 04:00 98.4 F 104 H 18 125/85 97 06/12/20 03:00 98.4 F 97 18 123/87 97 06/12/20 00:00 99.7 F H 116 H 20 143/90 97 Intake and Output 06/11/20 06/12/20 06/12/20 22:59 06:59 14:59 Intake Total 820 Output Total 100 600 Balance 720 -600 Intake: Oral 820 Output: Urine 100 600 Other: Voiding Method Toilet # Voids 1 Weight 89.6 kg PHYSICAL EXAMINATION: Patient is lying in the bed comfortably, no acute distress, awake alert and oriented.. HEENT: Normocephalic. Neck is supple. Pupils reactive. Nostrils clear. Oral cavity is moist. Ears reveal no drainage. Neck reveals no JVD, carotid bruits, or thyromegaly. CHEST EXAMINATION: Trachea is central. Symmetrical expansion. Lung mccray clear to auscultation and percussion. CARDIAC: Normal S1, S2 with no gallops. No murmurs ABDOMEN: Soft. Bowel sounds normal. No organomegaly. No abdominal bruits. Extremities: reveal no edema. No clubbing or cyanosis Neurologically awake, alert, oriented x3 with well-coordinated movements. No focal deficits noted Skin: No rash or skin lesions. Psychiatric: Coperative. Nonsuicidal Musculoskeletal: No joint swelling or deformity. Normal range of motion. Results CBC & Chem 7: 06/12/20 00:49 06/12/20 00:49 Labs: Abnormal Lab Results - Last 24 Hours (Table) 06/12/20 06/12/20 06/12/20 Range/Units 00:49 00:49 00:49 WBC 16.1 H (3.8-10.6) k/uL Neutrophils # 11.0 H (1.3-7.7) k/uL Carbon Dioxide 21 L (22-30) mmol/L BUN 6 L (7-17) mg/dL AST 63 H (14-36) U/L ALT 88 H (4-34) U/L Urine Appearance Turbid H (Clear) Urine Protein 2+ H (Negative) Urine Ketones 1+ H (Negative) Urine Blood Moderate H (Negative) Ur Leukocyte Esterase Large H (Negative) Urine RBC 139 H (0-5) /hpf Urine WBC >182 H (0-5) /hpf Urine WBC Clumps Many H (None) /hpf Ur Squamous Epith Cells 11 H (0-4) /hpf Urine Bacteria Rare H (None) /hpf Hyaline Casts 4 H (0-2) /lpf Urine Mucus Few H (None) /hpf Microbiology - Last 24 Hours (Table) 06/12/20 00:49 Urine Culture - Preliminary Urine,Clean Catch Thrombosis Risk Factor Assmnt - DVT/VTE Prophylaxis DVT/VTE Prophylaxis: Pharmacologic Prophylaxis ordered - Choose All That Apply Any of the Below Risk Factors Present?: Yes Each Factor Represents 1 point: History of prior major surgery (<1month), Obesity (BMI >25), Oral contraceptives or hormone replacement therapy Other Risk Factors: No Other congenital or acquired thrombophilia - If yes, enter type in comment: No Thrombosis Risk Factor Assessment Total Risk Factor Score: 3 Thrombosis Risk Factor Assessment Level: Moderate Risk Assessment and Plan Assessment: Acute pyelonephritis Sepsis secondary to pyonephritis Fibromyalgia Hypothyroidism GERD Asthma not in exacerbation Hepatic steatosis Anxiety/depression/PTSD Obesity with BMI 37.3 DVT prophylaxis with Lovenox subcu Recent gastric sleeve surgery about a month ago Plan: Patient will be continued IV hydration and was given antibiotic in the form of ceftriaxone in the ER. Patient will be started on metoprolol due to possible allergic reaction to ceftriaxone. Patient is also on lithium and quinolones were not started due to possible QT prolongation. Follow-up urine culture report. renal US was ordered. Continue with home medications. Time with Patient: Greater than 30
--- NOTE | 2020-06-12 22:25 | US ---
EXAMINATION TYPE: US kidneys/renal and bladder DATE OF EXAM: 06/12/2020 COMPARISON: NONE CLINICAL HISTORY: Pyelonephritis. EXAM MEASUREMENTS: Right Kidney: 10.0 x 5.1 x 4.1 cm Left Kidney: 12.6 x 4.2 x 4.2 cm Morbidly obese patient, unable to tolerate pressure with extensive overlying bowel gas. Technically d ifficult very limited study Right Kidney: limited visualization Left Kidney: limited visualization shows no obvious mass, measures large Bladder: wnl IMPRESSION: No sign of renal mass or obstruction. No hydronephrosis.
[2020-06-13] MEDS: LEVOTHYROXINE 125 MCG TAB PO SCH (06:27)
[2020-06-13] MEDS: MORPHINE SULFATE 4 MG/ML SYRINGE IV PRN ×2 (06:33→14:11)
[2020-06-13 07:37] LABS: Basophils % (A) 0 %; Eosinophils # (A) 0.5 k/uL (0-0.7); Eosinophils % (A) 5 %; HCT 38.2 % (34.0-46.0); HGB 11.6 gm/dL (11.4-16.0); Hypochromasia Moderate; Lymphocytes # (A) 2.8 k/uL (1.0-4.8); Lymphocytes % (A) 29 %; MCH 25.6 pg (25.0-35.0); MCHC 30.4 g/dL (31.0-37.0); Mean Platelet Volume 7.7; Monocytes # (A) 0.4 k/uL (0-1.0); Monocytes % (A) 4 %; Neutrophils # (A) 5.7 k/uL (1.3-7.7); Neutrophils % (A) 60 %; Platelet Count 229 k/uL (150-450); RBC 4.55 m/uL (3.80-5.40); RDW 15.6 % (11.5-15.5); WBC 9.5 k/uL (3.8-10.6)
[2020-06-13 07:50] LABS: African American GFR (CKD) >90 (>60 ml/min/1.73 sqM); Anion Gap 4 mmol/L; Blood Urea Nitrogen <2 mg/dL (7-17); Calcium 9.3 mg/dL (8.4-10.2); Carbon Dioxide 24 mmol/L (22-30); Chloride 117 mmol/L (98-107); Glucose 107 mg/dL (74-99); Non-African American GFR(CKD) >90 (>60 ml/min/1.73 sqM); Potassium 4.2 mmol/L (3.5-5.1); Sodium 145 mmol/L (137-145)
[2020-06-13] MEDS: TOPIRAMATE 25 MG TAB PO SCH ×2 (08:21→23:30)
[2020-06-13] MEDS: LITHIUM CARBONATE 300 MG CAP PO SCH ×2 (08:21→23:30)
[2020-06-13] MEDS: ENOXAPARIN 40 MG/0.4 ML SYRINGE SQ SCH (08:21)
[2020-06-13] MEDS: DULoxetine HCL 60 MG CAPSULE.DR PO SCH ×2 (08:21→23:30)
[2020-06-13] MEDS: PANTOPRAZOLE 40 MG TABLET PO SCH (08:21)
[2020-06-13] MEDS: SODIUM CHLORIDE 0.9% 1,000 ML IV SCH ×3 (08:22→23:39)
[2020-06-13] MEDS ORDERED: ACETAMINOPHEN IV (For NPO) 1,000 MG in EMPTY BAG 1 BAG IVPB STA (09:35)
[2020-06-13] MEDS ORDERED: MAGNESIUM SULFATE-D5W PMX 1 GM in DEXTROSE/WATER 1 100ML.BAG IVPB ONE (09:35)
--- NOTE | 2020-06-13 09:54 | P.PN ---
Subjective Progress Note Date: 06/13/20 This is a 24-year-old female, history of recent sleeve gastrectomy and multiple other medical issues, admitted with abdominal pain,acute pyelonephritis. [place] level subtherapeutic at 0.3. Maintained on IV fluid hydration, IV antibiotics of Rocephin. Reports prior to visit having significant gastroesoph ageal reflux disease, ran out of omeprazole and had difficulties refilling. Reports feeling better with the initiation of IV fluids and antibiotics. Reports tolerating diet better, no emesis. Complains of migraine headache. Denies chest pain, palpitations or shortness of breath. Afebrile, normal WBC, urine culture pending. BUN less than 2, creatinine 0.59. Blood sugars controlled. Objective - Vital Signs Vital signs: Vital Signs Temp 97.4 F L 06/13/20 08:10 Pulse 85 06/13/20 08:10 Resp 21 06/13/20 08:10 BP 107/68 06/13/20 08:10 Pulse Ox 96 06/13/20 08:10 Intake & Output 06/12/20 06/13/20 06/13/20 18:59 06:59 18:59 Intake Total 2430 Output Total 2100 501 960 Balance -2100 1929 -960 Intake: Intake, IV Titration 1350 Amount Ertapenem 1 gm In Sodium 50 Chloride 0.9% 50 ml @ 100 mls/hr IVPB HS JERARDO Rx#: [id number] Sodium Chloride 0.9% 1, 1300 000 ml @ 130 mls/hr IV . [id number] JERARDO Rx#:[id number] Oral 1080 Output: Urine 2100 501 900 Emesis 60 Other: Voiding Method Toilet Toilet # Voids 1 400 1 - Exam PHYSICAL EXAMINATION: GENERAL:well nourished, well developed, morbidly obese, NAD. Vitals reviewed HEENT: normocephalic, PERRL, EOMI, conjunctiva normal, oral mucosa moist Neck: Supple, no JVD Lungs: normal respiratory effort, no wheezes or rales CARDIAC: Normal S1, S2 with no gallops. No murmurs ABDOMEN: Soft. Diffuse tenderness mid epigastric and suprapubic. No organomegaly .Bowel sounds normal. Extremities: reveal no edema. No clubbing or cyanosis Skin: Warm and dry, no rash Neurologically awake, alert, oriented x3 with well-coordinated movements. No focal deficits noted - Labs CBC & Chem 7: 06/13/20 07:25 06/13/20 07:25 Labs: Abnormal Lab Results - Last 24 Hours (Table) 06/13/20 06/13/20 Range/Units 07:25 07:25 MCHC 30.4 L (31.0-37.0) g/dL RDW 15.6 H (11.5-15.5) % Chloride 117 H (98-107) mmol/L BUN <2 L (7-17) mg/dL Glucose 107 H (74-99) mg/dL Microbiology - Last 24 Hours (Table) 06/12/20 00:49 Urine Culture - Preliminary Urine,Clean Catch Assessment and Plan Assessment: Acute pyelonephritis Sepsis ruled out Migraine Fibromyalgia Hypothyroidism GERD Asthma not in exacerbation Hepatic steatosis Bipolar disorder Subtherapeutic lithium level, 0.3 Obesity with BMI 37.3 DVT prophylaxis with Lovenox subcu Recent gastric sleeve surgery about a month ago, noncompliant with bariatric diet Hypothyroidism Plan: Continue on current medication regime ,monitoring and symptomatic treatment. Maintain IV fluid hydration, IV antibiotics of Rocephin. Close monitoring of urine culture/pending. Dietitian consult in place regarding further education on bariatric diet-staff reports patient not compliant with. Migraine cocktail ordered. Recommend daily oral magnesium at [place]. The impression and plan of care has been dictated as directed. : I performed a history and examination of this patient, discussed the same with the dictator. I agree with the dictator's note ,documented as a scribe. Any additional findings or plans will be noted.
[2020-06-13] MEDS ORDERED: METOCLOPRAMIDE 5 MG/ML 2 ML VIAL IVP PRN (14:33)
[2020-06-13 15:59] VITALS: BMI 37.3
[2020-06-13] MEDS: diphenhydrAMINE 50 MG/ML 1 ML VIAL IVP PRN ×2 (16:13→22:49)
[2020-06-13] MEDS: ACETAMINOPHEN TAB 325 MG TAB PO PRN (19:46)
[2020-06-13] MEDS ORDERED: ACETAMINOPHEN IV (For NPO) 1,000 MG in EMPTY BAG 1 BAG IVPB ONE (21:15)
[2020-06-13] MEDS: ERTAPENEM 1 GM in SODIUM CHLORIDE 0.9% 50 ML IVPB SCH (22:51)
[2020-06-13] MEDS: traZODone HCL 100 MG TAB PO SCH (23:30)
[2020-06-13] MEDS: MONTELUKAST 5 MG CHEWABLE PO SCH (23:30)
[2020-06-14] MEDS ORDERED: ALBUTEROL NEBULIZED 2.5 MG/3 ML INHALATION PRN (01:18)
[2020-06-14] MEDS ORDERED: CALCIUM CARBONATE 500 MG CHEWABLE PO PRN ×2 (03:00→14:40)
[2020-06-14] MEDS: diphenhydrAMINE 50 MG/ML 1 ML VIAL IVP PRN ×3 (09:08→21:03)
[2020-06-14] MEDS: LEVOTHYROXINE 125 MCG TAB PO SCH (09:09)
[2020-06-14] MEDS: DULoxetine HCL 60 MG CAPSULE.DR PO SCH ×2 (09:09→20:56)
[2020-06-14] MEDS: ENOXAPARIN 40 MG/0.4 ML SYRINGE SQ SCH (09:09)
[2020-06-14] MEDS: LITHIUM CARBONATE 300 MG CAP PO SCH ×2 (09:09→20:56)
[2020-06-14] MEDS: TOPIRAMATE 25 MG TAB PO SCH ×2 (09:09→20:56)
[2020-06-14] MEDS: PANTOPRAZOLE 40 MG TABLET PO SCH (09:09)
--- NOTE | 2020-06-14 10:04 | P.PN ---
Subjective Progress Note Date: 06/14/20 This is a 24-year-old female, history of recent sleeve gastrectomy and multiple other medical issues, admitted with abdominal pain,acute pyelonephritis. [place] level subtherapeutic at 0.3. Maintained on IV fluid hydration, IV antibiotics of Rocephin. Reports prior to visit having significant gastroesoph ageal reflux disease, ran out of omeprazole and had difficulties refilling. Reports feeling better with the initiation of IV fluids and antibiotics. Reports tolerating diet better, no emesis. Complains of migraine headache. Denies chest pain, palpitations or shortness of breath. Afebrile, normal WBC, urine culture pending. BUN less than 2, creatinine 0.59. Blood sugars controlled. 06/14/2020 preliminary urine culture reporting gram-negative bacilli. maintained on ertapenem and gentle IV fluid hydration. Afebrile, normal WBC. Maintaining O2 sats in the high 90s on room air. Migraine subsided. Dietitian met with patient regarding bariatric diet. Diet converted to bariatric pured. Tolerating well. Objective - Vital Signs Vital signs: Vital Signs Temp 97.4 F L 06/14/20 08:20 Pulse 84 06/14/20 08:20 Resp 16 06/14/20 08:20 BP 112/74 06/14/20 08:20 Pulse Ox 98 06/14/20 08:20 Intake & Output 06/13/20 06/14/20 06/14/20 18:59 06:59 18:59 Intake Total 40 Output Total 1120 2200 Balance -1120 -2160 Weight 89.6 kg Intake: Oral 40 Output: Urine 1000 2200 Emesis 120 Other: Voiding Method Toilet Toilet # Voids 1 4 - Exam PHYSICAL EXAMINATION: GENERAL: Lying in bed, no acute distress, vital signs reviewed HEENT: normocephalic, PERRL, EOMI, conjunctiva normal, oral mucosa moist Neck: Supple, no JVD Lungs: normal respiratory effort, no wheezes or rales CARDIAC: Normal S1, S2 with no gallops. No murmurs ABDOMEN: Soft. Minimal tenderness mid epigastric and suprapubic. No organomegaly .Bowel sounds normal. Extremities: reveal no edema. No clubbing or cyanosis Skin: Warm and dry, no rash Neurologically awake, alert, oriented x3 with well-coordinated movements. No focal deficits noted - Labs CBC & Chem 7: 06/13/20 07:25 06/13/20 07:25 Labs: Microbiology - Last 24 Hours (Table) 06/12/20 00:49 Urine Culture - Preliminary Urine,Clean Catch Gram Neg Bacilli Assessment and Plan Assessment: Acute pyelonephritis Sepsis ruled out Migraine Fibromyalgia Hypothyroidism GERD Asthma not in exacerbation Hepatic steatosis Bipolar disorder Subtherapeutic lithium level, 0.3 Obesity with BMI 37.3 DVT prophylaxis with Lovenox subcu Recent gastric sleeve surgery about a month ago, noncompliant with bariatric diet Hypothyroidism Plan: Continue on current medication regime ,monitoring and symptomatic treatment. Maintain IV fluid hydration, IV antibiotics. Final culture pending. Maintained bariatric diet, continue education of. Discharge planning in [facility] for tomorrow pending final culture results. Increase ambulation as tolerated. The impression and plan of care has been dictated as directed. : I performed a history and examination of this patient, discussed the same with the dictator. I agree with the dictator's note ,documented as a scribe. Any additional findings or plans will be noted.
[2020-06-14] MEDS: SODIUM CHLORIDE 0.9% 1,000 ML IV SCH ×2 (11:42→20:57)
[2020-06-14] MEDS: ACETAMINOPHEN TAB 325 MG TAB PO PRN (14:08)
[2020-06-14] MEDS: traZODone HCL 100 MG TAB PO SCH (20:56)
[2020-06-14] MEDS: ERTAPENEM 1 GM in SODIUM CHLORIDE 0.9% 50 ML IVPB SCH (20:56)
[2020-06-14] MEDS: MONTELUKAST 5 MG CHEWABLE PO SCH (20:56)
[2020-06-15] MEDS: SODIUM CHLORIDE 0.9% 1,000 ML IV SCH (01:20)
[2020-06-15] MEDS: LEVOTHYROXINE 125 MCG TAB PO SCH (06:41)
[2020-06-15 08:57] VITALS: BP 110/76; PULSE 62; RESP 28; TEMP 98.1
[2020-06-15] MEDS: diphenhydrAMINE 50 MG/ML 1 ML VIAL IVP PRN (09:35)
--- NOTE | 2020-06-15 09:58 | P.DS ---
Providers Date of admission: 06/14/20 08:34 Expected date of discharge: 06/15/20 Attending physician: Lon Goldberg MD Primary care physician: Marysol Rose Hospital Course: Final diagnoses: Acute pyelonephritis with E. coli Sepsis ruled out Migraine Fibromyalgia Hypothyroidism GERD Asthma not in exacerbation Hepatic steatosis Bipolar disorder Subtherapeutic lithium level, 0.3 Obesity with BMI 37.3 DVT prophylaxis with Lovenox subcu Recent gastric sleeve surgery about a month ago, noncompliant with bariatric diet Hypothyroidism Hospital course:This is a 24-year-old female, history of recent sleeve gastrectomy and multiple other medical issues, admitted with abdominal pain,acute pyelonephritis. [place] level subtherapeutic at 0.3. Maintained on IV fluid hydration, IV antibiotics of Rocephin. Reports prior to visit having significant gastroesophageal reflux disease, ran out of omeprazole and had difficulties refilling. Reports feeling better with the initiation of IV fluids and antibiotics. Reports tolerating diet better, no emesis. Complains of migraine headache. Denies chest pain, palpitations or shortness of breath. Afebrile, normal WBC, urine culture pending. BUN less than 2, creatinine 0.59. Blood sugars controlled. 06/14/2020 preliminary urine culture reporting gram-negative bacilli. maintained on ertapenem and gentle IV fluid hydration. Afebrile, normal WBC. Maintaining O2 sats in the high 90s on room air. Migraine subsided. Dietitian met with patient regarding bariatric diet. Diet converted to bariatric pured. Tolerating well. Maintained on IV antibiotics. Afebrile. Significant clinical improvement. Patient is being discharged home in a stable condition with guarded prognosis. The impression and plan of care has been dictated as directed. : I performed a history and examination of this patient, discussed the same with the dictator. I agree with the dictator's note ,documented as a scribe. Any additional findings or plans will be noted. Patient Condition at Discharge: Stable Plan - Discharge Summary Discharge Rx Participant: No New Discharge Prescriptions: New Sulfamethox-Tmp 800-160Mg [Bactrim DS 800-160 mg] 1 tab PO BID 3 Days #6 tab L. Acidophilus/L.bulgaricus [Lactinex Chewable Tablet] 1 each PO BID #10 tab.chew Continue [place] Carbonate 300 mg PO QAM Levothyroxine Sodium [Synthroid] 125 mcg PO QAM Norgestimate-Ethinyl Estradiol [Sprintec 28 Day Tablet] 1 tab PO DAILY Flunisolide [Aerospan] 2 puff INHALATION RT-BID PRN PRN Reason: Dyspnea DULoxetine HCL [Cymbalta] 60 mg PO BID EPINEPHrine (Auto Inject) [Epipen] 0.3 mg IM DAILY PRN PRN Reason: Allergic Reaction Topiramate [Topiramate ER] 100 mg PO HS traZODone HCL [Desyrel] 100 mg PO HS [place] Carbonate 600 mg PO HS Rizatriptan Benzoate [Rizatriptan] 10 mg PO DAILY PRN PRN Reason: Migraine Headache Ondansetron [Zofran] 4 mg PO TID PRN PRN Reason: Nausea Prochlorperazine [Compazine] 10 mg PO TID PRN PRN Reason: Nausea Montelukast Sodium [Singulair] 10 mg PO HS Fluticasone Nasal [place] [Flonase Nasal [place]] 2 spr EA NOSTRIL DAILY PRN PRN Reason: Allergy Symptoms diphenhydrAMINE [Benadryl] 50 mg PO DAILY PRN PRN Reason: Insomnia Omeprazole [PriLOSEC] 40 mg PO DAILY Discharge Medication List [place] Carbonate 300 mg PO QAM 08/27/15 [History] Levothyroxine Sodium [Synthroid] 125 mcg PO QAM 01/06/17 [History] Norgestimate-Ethinyl Estradiol [Sprintec 28 Day Tablet] 1 tab PO DAILY 02/04/18 [History] DULoxetine HCL [Cymbalta] 60 mg PO BID 01/19/19 [History] EPINEPHrine (Auto Inject) [Epipen] 0.3 mg IM DAILY PRN 01/19/19 [History] Flunisolide [Aerospan] 2 puff INHALATION RT-BID PRN 01/19/19 [History] Topiramate [Topiramate ER] 100 mg PO HS 04/26/20 [History] [place] Carbonate 600 mg PO HS 04/30/20 [History] Rizatriptan Benzoate [Rizatriptan] 10 mg PO DAILY PRN 04/30/20 [History] traZODone HCL [Desyrel] 100 mg PO HS 04/30/20 [History] Fluticasone Nasal [place] [Flonase Nasal [place]] 2 spr EA NOSTRIL DAILY PRN 05/16/20 [History] Montelukast Sodium [Singulair] 10 mg PO HS 05/16/20 [History] Ondansetron [Zofran] 4 mg PO TID PRN 05/16/20 [History] Prochlorperazine [Compazine] 10 mg PO TID PRN 05/16/20 [History] Omeprazole [PriLOSEC] 40 mg PO DAILY 06/12/20 [History] diphenhydrAMINE [Benadryl] 50 mg PO DAILY PRN 06/12/20 [History] L. Acidophilus/L.bulgaricus [Lactinex Chewable Tablet] 1 each PO BID #10 tab.chew 06/15/20 [Rx] Sulfamethox-Tmp 800-160Mg [Bactrim DS 800-160 mg] 1 tab PO BID 3 Days #6 tab 06/15/20 [Rx] Follow up Appointment(s)/Referral(s): Lon Goldberg MD [STAFF PHYSICIAN] - 1 Week Ambulatory/Diagnostic Orders: Complete Blood Count w/diff [LAB.AMB] Time Frame: 3 Days, Location: None Selected Patient Instructions/Handouts: Abdominal Pain (ED) Activity/Diet/Wound Care/Special Instructions: Magnesium supplement daily related to migraines, possibly liquid form, secondary to sleeve.
[2020-06-15] MEDS: ENOXAPARIN 40 MG/0.4 ML SYRINGE SQ SCH (11:08)
[2020-06-15] MEDS: TOPIRAMATE 25 MG TAB PO SCH (11:08)
[2020-06-15] MEDS: PANTOPRAZOLE 40 MG TABLET PO SCH (11:09)
[2020-06-15] MEDS: DULoxetine HCL 60 MG CAPSULE.DR PO SCH (11:09)
[2020-06-15] MEDS: LITHIUM CARBONATE 300 MG CAP PO SCH (11:09)
== END 2020-06-15 12:13 | disposition home or self-care (01) | DRG 690 ==
LOC: EC 23:47 → 6PED 06-12 02:38 → OBSVTOIN 06-14 08:34 → 6PED 06-14 20:59
PROVIDERS: ADMIT Family Medicine; ATTEND Family Medicine
DX: N10 Acute pyelonephritis (principal); K74.60 Unspecified cirrhosis of liver; K76.0 Fatty (change of) liver, not elsewhere classified; E66.01 Morbid (severe) obesity due to excess calories; F31.9 Bipolar disorder, unspecified; B96.20 Unspecified Escherichia coli [E. coli] as the cause of diseases classified elsewhere; E03.9 Hypothyroidism, unspecified; Z68.37 Body mass index [BMI] 37.0-37.9, adult; F40.00 Agoraphobia, unspecified; F43.10 Post-traumatic stress disorder, unspecified; G43.909 Migraine, unspecified, not intractable, without status migrainosus; J45.909 Unspecified asthma, uncomplicated; K21.9 Gastro-esophageal reflux disease without esophagitis; M79.7 Fibromyalgia; B19.20 Unspecified viral hepatitis C without hepatic coma; K58.9 Irritable bowel syndrome, unspecified; F41.9 Anxiety disorder, unspecified; Z79.890 Hormone replacement therapy; Z79.899 Other long term (current) drug therapy; Z91.19 Patient's noncompliance with other medical treatment and regimen; Z88.6 Allergy status to analgesic agent; Z91.040 Latex allergy status; Z88.5 Allergy status to narcotic agent; Z88.0 Allergy status to penicillin; Z91.013 Allergy to seafood; Z98.84 Bariatric surgery status; Z90.49 Acquired absence of other specified parts of digestive tract; Z87.19 Personal history of other diseases of the digestive system; Z87.440 Personal history of urinary (tract) infections; Z98.890 Other specified postprocedural states; Z82.5 Family history of asthma and other chronic lower respiratory diseases; Z83.79 Family history of other diseases of the digestive system
CPT/HCPCS: 36415; 76770; 80048; 80053; 81001; 81025; 83605; 85025; 87077; 87086; 87186; 96361; 96374; 96375; 96376; 99285

== ENCOUNTER 2020-07-01 23:25 | Emergency (ER) | payer OTHER ==
[2020-07-02] MEDS ORDERED: MORPHINE SULFATE 2 MG/ML SYRINGE IVP STA (00:15)
[2020-07-02] MEDS ORDERED: ONDANSETRON 4 MG/2 ML VIAL IVP STA (00:15)
[2020-07-02] MEDS ORDERED: SODIUM CHLORIDE 0.9% 1,000 ML IV STA (00:15)
[2020-07-02 01:03] LABS: Basophils # (A) 0.1 k/uL (0-0.2); Basophils % (A) 0 %; Eosinophils # (A) 0.4 k/uL (0-0.7); Eosinophils % (A) 3 %; HCT 42.3 % (34.0-46.0); HGB 13.1 gm/dL (11.4-16.0); Hypochromasia Slight; Lymphocytes # (A) 3.3 k/uL (1.0-4.8); Lymphocytes % (A) 23 %; MCH 26.5 pg (25.0-35.0); MCHC 31.1 g/dL (31.0-37.0); MCV 85.2 fL (80.0-100.0); Mean Platelet Volume 8.7; Monocytes # (A) 0.7 k/uL (0-1.0); Monocytes % (A) 5 %; Neutrophils # (A) 9.7 k/uL (1.3-7.7); Neutrophils % (A) 68 %; Platelet Count 283 k/uL (150-450); RBC 4.96 m/uL (3.80-5.40); RDW 15.3 % (11.5-15.5); WBC 14.3 k/uL (3.8-10.6)
--- NOTE | 2020-07-02 01:15 | XR ---
EXAM: XR Abdomen, 1 View CLINICAL HISTORY: ITS.REASON XR Reason: abdominal pain TECHNIQUE: Frontal upright views of the abdomen/pelvis. COMPARISON: 05/25/2019 FINDINGS: Lower thorax: The lung bases are clear. Intraperitoneal space: No pneumoperitoneum. Gastrointestinal tract: Postsurgical changes in the left upper quadrant are consistent with prior gastric reduction surgery. Nonspecific, nonobstructive bowel gas pattern with gas predominantly in the nondilated colon. No significant small bowel air-fluid levels. Organs: Postsurgical changes in the right upper quadrant are consistent with prior cholecystectomy. Bones/joints: Unremarkable. IMPRESSION: Nonspecific, nonobstructive bowel gas pattern. No pneumoperitoneum.
[2020-07-02 01:19] LABS: ALT 52 U/L (4-34); African American GFR (CKD) >90 (>60 ml/min/1.73 sqM); Albumin 3.8 g/dL (3.5-5.0); Anion Gap 9 mmol/L; Blood Urea Nitrogen 8 mg/dL (7-17); Calcium 10.4 mg/dL (8.4-10.2); Carbon Dioxide 19 mmol/L (22-30); Chloride 107 mmol/L (98-107); Glucose 90 mg/dL (74-99); Non-African American GFR(CKD) >90 (>60 ml/min/1.73 sqM); Sodium 135 mmol/L (137-145); Total Bilirubin 0.7 mg/dL (0.2-1.3); Total Protein 7.2 g/dL (6.3-8.2)
[2020-07-02 01:23] LABS: AST 57 U/L (14-36); Alkaline Phosphatase 99 U/L (38-126); Potassium 4.3 mmol/L (3.5-5.1)
[2020-07-02 01:36] LABS: Appearance,Urine Cloudy (Clear); Bacteria,Urine Rare /hpf; Bilirubin,Urine 1+ (Negative); Blood,Urine Negative (Negative); Color,Urine Yellow; Glucose,Urine (UA) Negative (Negative); Hyaline Casts,Urine 8 /lpf (0-2); Ketones,Urine 3+ (Negative); Leukocyte Esterase,Urine Small (Negative); Mucus,Urine Occasional /hpf; Nitrite,Urine Negative (Negative); Protein,Urine Trace (Negative); RBC,Urine 1 /hpf (0-5); Specific Gravity,Urine 1.021 (1.001-1.035); Squamous Epithelial Cell,Urine 6 /hpf (0-4); WBC,Urine 14 /hpf (0-5)
[2020-07-02] MEDS: SODIUM CHLORIDE 0.9% 500 ML 500 ML IV ONE ×2 (01:57→06:15)
[2020-07-02 02:01] VITALS: RESP 16
[2020-07-02] MEDS ORDERED: PANTOPRAZOLE 40 MG/10 ML VIAL IVP STA (02:18)
--- NOTE | 2020-07-02 03:38 | CT ---
EXAM: CT Abdomen and Pelvis With Intravenous Contrast CLINICAL HISTORY: ITS.REASON CT Reason: abdominal pain TECHNIQUE: Axial computed tomography images of the abdomen and pelvis with intravenous contrast. CTDI is 28.77 mGy and DLP is 1278.20 mGy-cm. This CT exam was performed using one or more of the following dose reduction techniques: automated exposure control, adjustment of the mA and/or kV according to patient size, and/or use of iterative reconstruction technique. COMPARISON: CT abdomen 05/23/2020 FINDINGS: Lung bases: Unremarkable. No mass. No consolidation. Mediastinum: Oral contrast is noted in the visible distal thoracic esophagus, the gastric remnant and proximal to mid small bowel loops. ABDOMEN: Liver: Unremarkable. No mass. Gallbladder and bile ducts: Cholecystectomy. No ductal dilation. Pancreas: Unremarkable. No mass. No ductal dilation. Spleen: Unremarkable. No splenomegaly. Adrenals: Unremarkable. No mass. Kidneys and ureters: Unremarkable. No solid mass. No hydronephrosis. Stomach and bowel: Postsurgical changes consistent with gastric reduction surgery, stable. No significant bowel mucosal asymmetry. No evidence for bowel obstruction. PELVIS: Appendix: The appendix is not clearly identified. However, no secondary findings to suggest acute appendicitis noted. Bladder: Unremarkable. No mass. Reproductive: Cystic changes suggested in the left adnexa/ovary, measuring 2.5 x 2.4 x 3 cm. The uterus and right adnexa are grossly unremarkable. ABDOMEN and PELVIS: Intraperitoneal space: Unremarkable. No free air. No significant fluid collection. Bones/joints: No acute fracture. No dislocation. Soft tissues: Unremarkable. Vasculature: Unremarkable. No abdominal aortic aneurysm. Lymph nodes: Unremarkable. No enlarged lymph nodes. IMPRESSION: 1. Oral contrast is noted in the visible distal thoracic esophagus, the gastric remnant and proximal to mid small bowel loops. Uncertain clinical significance regarding the retained contrast in the distal thoracic esophagus. Please correlate with time line of oral contrast administration prior to imaging. 2. No evidence for bowel obstruction or significant asymmetric mucosal abnormality. No free intraperitoneal fluid or pneumoperitoneum. 3. Cystic changes in the left adnexa measuring up to 3 cm are presumed incidental. The pelvis was not imaged on the previous CT examination, precluding evaluation for stability.
--- NOTE | 2020-07-02 04:25 | ED ---
General Adult HPI - General Chief complaint: Abdominal Pain Stated complaint: Dehydrated Time Seen by Provider: 07/02/20 00:12 Source: patient, RN notes reviewed, old records reviewed Mode of arrival: ambulatory Limitations: no limitations - History of Present Illness Initial comments: 24-year-old female patient past medical history of gastric sleeve 04/26/2020. Pretty chief complaint of epigastric abdominal pain nausea vomiting. Has been o ngoing the last 2 days. Denies any other acute complaints. Systemic: Pt denies fatigue, fever/chills, rash. Pt denies weakness, night sweats, weight loss. Neuro: Pt denies headache, visual disturbances, syncope or pre-syncope. HEENT: Pt denies ocular discharge or irritation, otalgia, rhinorrhea, pharyngitis or notable lymphadenopathy. Cardiopulmonary: Pt denies chest pain, SOB, heart palpitations, dyspnea on exertion. Abdominal/GI: Pt denies abdominal pain, n/v/d. : Pt denies dysuria, burning w/ urination, frequency/urgency. Denies new onset urinary or bowel incontinence. MSK: Pt denies myalgia, loss of strength or function in extremities. Neuro: Pt denies new onset weakness, paresthesias. - Related Data Home Medications Medication Instructions Recorded Confirmed Levothyroxine Sodium [Synthroid] 125 mcg PO QAM 01/06/17 07/02/20 Norgestimate-Ethinyl Estradiol 1 tab PO DAILY 02/04/18 07/02/20 [Sprintec 28 Day Tablet] DULoxetine HCL [Cymbalta] 60 mg PO BID 01/19/19 07/02/20 EPINEPHrine (Auto Inject) [Epipen] 0.3 mg IM DAILY PRN 01/19/19 07/02/20 Topiramate [Topiramate ER] 100 mg PO HS 04/26/20 07/02/20 Coin Carbonate 300 mg PO TID 04/30/20 07/02/20 Rizatriptan Benzoate [Rizatriptan] 10 mg PO DAILY PRN 04/30/20 07/02/20 traZODone HCL [Desyrel] 50 mg PO HS PRN 04/30/20 07/02/20 Fluticasone Nasal [place] [Flonase 2 spr EA NOSTRIL DAILY PRN 05/16/20 07/02/20 Nasal [place]] Montelukast Sodium [Singulair] 5 mg PO HS 05/16/20 07/02/20 Ondansetron [Zofran] 4 mg PO TID PRN 05/16/20 07/02/20 Prochlorperazine [Compazine] 10 mg PO TID PRN 05/16/20 07/02/20 Omeprazole [PriLOSEC] 40 mg PO DAILY 06/12/20 07/02/20 Ergocalciferol [Vitamin D2 50,000 unit PO MO 07/02/20 07/02/20 (DRISDOL)] Allergies Allergy/AdvReac Type Severity Reaction Status Date / Time ceftriaxone [From Rocephin] Allergy Itching Verified 07/02/20 20:36 fentanyl Allergy Rash/Hives Verified 07/02/20 20:36 latex Allergy Rash/Hives Verified 07/02/20 20:36 metoclopramide [From Reglan] Allergy Unknown Verified 07/02/20 20:36 Penicillins Allergy Anaphylaxis Verified 07/02/20 20:36 ibuprofen [From Motrin] AdvReac GI Bleed Verified 07/02/20 20:36 prazosin AdvReac Nausea & Verified 07/02/20 20:36 Vomiting grape juice Allergy Anaphylaxis Uncoded 07/02/20 18:36 Seafood Allergy Anaphylaxis Uncoded 07/02/20 18:36 Review of Systems ROS Statement: Those systems with pertinent positive or pertinent negative responses have been documented in the HPI. ROS Other: All systems not noted in ROS Statement are negative. Past Medical History Past Medical History: Asthma, Chest Pain / Angina, Fibromyalgia, GERD/Reflux, Liver Disease, Thyroid Disorder Additional Past Medical History / Comment(s): Cirrhosis of the liver (pt states these are partly due to her genetics and partly due to mental health medications she has been taking since age 4), Esophagitis. IBS. PART OF STOMACH NON- FUNCTIONING. BLOOD IN STOOL sometimes- last time one year ago, "fast heart beat" pt states that normal is around 100bpm, gastroporesis History of Any Multi-Drug Resistant Organisms: None Reported Past Surgical History: Appendectomy, Bariatric Surgery, Cholecystectomy, Tonsillectomy Additional Past Surgical History / Comment(s): NASAL Septum repair. COLONOSCOPY., gastric sleeve-04/26/2020 Past Anesthesia/Blood Transfusion Reactions: Motion Sickness Additional Past Anesthesia/Blood Transfusion Reaction / Comment(s): woke up once during surgery Past Psychological History: Anxiety, Depression, PTSD Smoking Status: Never smoker Past Alcohol Use History: None Reported Past Drug Use History: None Reported - Past Family History Father Family Medical History: Liver Disease Additional Family Medical History / Comment(s): at age 61 from COPD. ALso had cirrhosis,hepatitis C, pancreatitis, heart attacks (multiple) and esophagus disease General Exam - General Exam Comments Initial Comments: Constitutional: NAD, AOX3, Pt has pleasant affect. HEENT: NC/AT, trachea midline, neck supple, no lymphadenopathy. Posterior pharynx non erythematous, without exudates. External ears appear normal, without discharge. Mucous membranes moist. Eyes PERRLA, EOM intact. There is no scleral icterus. No pallor noted. Cardiopulmonary: RRR, no murmurs, rubs or gallops, no JVD noted. Lungs CTAB in anterior and posterior mccray. No peripheral edema. Abdominal exam: Abdomen soft and non-distended. Abdomen mildly tender to palpation in epigastric region.. Bowel sounds active in LLQ. No hepatosplenomegaly. No ecchymosis Neuro: CN II-XII grossly intact. No nuchal rigidity. No raccon eyes, no olivares sign, no hemotympanum. No cervical spinal tenderness. MSK: Full active ROM in upper and lower extremities, 5/5 stregnth. Limitations: no limitations Course Vital Signs 07/01/20 07/02/20 07/02/20 23:33 01:59 03:00 Temperature 99.4 F 98.1 F 98.8 F Pulse Rate 114 H 96 98 Respiratory 22 16 16 Rate Blood Pressure 135/85 130/92 133/90 O2 Sat by Pulse 95 98 99 Oximetry 07/02/20 07/02/20 07/02/20 04:30 05:30 06:30 Temperature 98.2 F 98.8 F 98.7 F Pulse Rate 68 78 75 Respiratory 16 16 16 Rate Blood Pressure 125/86 138/74 118/85 O2 Sat by Pulse 99 98 98 Oximetry Medical Decision Making - Medical Decision Making 24-year-old female patient presented Z chief complaint of nausea vomiting abdominal pain. Patient vital signs are stable, afebrile. Physical exam displayed mild epigastric tenderness. Patient did have a gastric sleeve placed her on 2 months ago. Laboratory investigations reveal leukocytosis 14,000 with left shift. Mildly elevated liver enzymes. UA doesn't display 3+ ketones. Small leukocyte esterase 14 white blood cells 6 squamous cells 8 hyaline casts. No dysuria will be cultured. CT abdomen and pelvis displayed cystic changes in left adnexa measuring 3 cm no evidence or bowel obstruction or significant asymmetric mucosal abnormality. No free anterior x-ray of fluid or pneumoperitoneum. Pt adminstered 1.5L ns. Coin found to be elevated. Patient signed out to Dr. Whiteside at shift change. He reports that he contacted poison control. Administered fluids, rechecked level which was found to be therapeutic and discharged patient in stable condition. - Lab Data Result diagrams: 07/02/20 00:15 07/02/20 00:15 Lab Results 07/02/20 07/02/20 07/02/20 Range/Units 00:15 00:15 00:15 WBC 14.3 H (3.8-10.6) k/uL RBC 4.96 (3.80-5.40) m/uL Hgb 13.1 (11.4-16.0) gm/dL Hct 42.3 (34.0-46.0) % MCV 85.2 (80.0-100.0) fL MCH 26.5 (25.0-35.0) pg MCHC 31.1 (31.0-37.0) g/dL RDW 15.3 (11.5-15.5) % Plt Count 283 (150-450) k/uL Neutrophils % 68 % Lymphocytes % 23 % Monocytes % 5 % Eosinophils % 3 % Basophils % 0 % Neutrophils # 9.7 H (1.3-7.7) k/uL Lymphocytes # 3.3 (1.0-4.8) k/uL Monocytes # 0.7 (0-1.0) k/uL Eosinophils # 0.4 (0-0.7) k/uL Basophils # 0.1 (0-0.2) k/uL Hypochromasia Slight Sodium (137-145) mmol/L Potassium (3.5-5.1) mmol/L Chloride (98-107) mmol/L Carbon Dioxide (22-30) mmol/L Anion Gap mmol/L BUN (7-17) mg/dL Creatinine (0.52-1.04) mg/dL Est GFR (CKD-EPI)AfAm (>60 ml/min/1.73 sqM) Est GFR (CKD-EPI)NonAf (>60 ml/min/1.73 sqM) Glucose (74-99) mg/dL Calcium (8.4-10.2) mg/dL Total Bilirubin (0.2-1.3) mg/dL AST (14-36) U/L ALT (4-34) U/L Alkaline Phosphatase (38-126) U/L Total Protein (6.3-8.2) g/dL Albumin (3.5-5.0) g/dL Lipase (23-300) U/L Urine Color Yellow Urine Appearance Cloudy H (Clear) Urine pH 6.0 (5.0-8.0) Ur Specific [place] 1.021 (1.001-1.035) Urine Protein Trace H (Negative) Urine Glucose (UA) Negative (Negative) Urine Ketones 3+ H (Negative) Urine Blood Negative (Negative) Urine Nitrite Negative (Negative) Urine Bilirubin 1+ H (Negative) Urine Urobilinogen 2.0 (<2.0) mg/dL Ur Leukocyte Esterase Small H (Negative) Urine RBC 1 (0-5) /hpf Urine WBC 14 H (0-5) /hpf Ur Squamous Epith Cells 6 H (0-4) /hpf Urine Bacteria Rare H (None) /hpf Hyaline Casts 8 H (0-2) /lpf Urine Mucus Occasional H (None) /hpf Urine HCG, Qual Not Detected (Not Detectd) Coin mmol/L 07/02/20 07/02/20 07/02/20 Range/Units 00:15 00:15 07:02 WBC (3.8-10.6) k/uL RBC (3.80-5.40) m/uL Hgb (11.4-16.0) gm/dL Hct (34.0-46.0) % MCV (80.0-100.0) fL MCH (25.0-35.0) pg MCHC (31.0-37.0) g/dL RDW (11.5-15.5) % Plt Count (150-450) k/uL Neutrophils % % Lymphocytes % % Monocytes % % Eosinophils % % Basophils % % Neutrophils # (1.3-7.7) k/uL Lymphocytes # (1.0-4.8) k/uL Monocytes # (0-1.0) k/uL Eosinophils # (0-0.7) k/uL Basophils # (0-0.2) k/uL Hypochromasia Sodium 135 L (137-145) mmol/L Potassium 4.3 (3.5-5.1) mmol/L Chloride 107 (98-107) mmol/L Carbon Dioxide 19 L (22-30) mmol/L Anion Gap 9 mmol/L BUN 8 (7-17) mg/dL Creatinine 0.69 (0.52-1.04) mg/dL Est GFR (CKD-EPI)AfAm >90 (>60 ml/min/1.73 sqM) Est GFR (CKD-EPI)NonAf >90 (>60 ml/min/1.73 sqM) Glucose 90 (74-99) mg/dL Calcium 10.4 H (8.4-10.2) mg/dL Total Bilirubin 0.7 (0.2-1.3) mg/dL AST 57 H (14-36) U/L ALT 52 H (4-34) U/L Alkaline Phosphatase 99 (38-126) U/L Total Protein 7.2 (6.3-8.2) g/dL Albumin 3.8 (3.5-5.0) g/dL Lipase 104 (23-300) U/L Urine Color Urine Appearance (Clear) Urine pH (5.0-8.0) Ur Specific [place] (1.001-1.035) Urine Protein (Negative) Urine Glucose (UA) (Negative) Urine Ketones (Negative) Urine Blood (Negative) Urine Nitrite (Negative) Urine Bilirubin (Negative) Urine Urobilinogen (<2.0) mg/dL Ur Leukocyte Esterase (Negative) Urine RBC (0-5) /hpf Urine WBC (0-5) /hpf Ur Squamous Epith Cells (0-4) /hpf Urine Bacteria (None) /hpf Hyaline Casts (0-2) /lpf Urine Mucus (None) /hpf Urine HCG, Qual (Not Detectd) Coin 2.0 H* 1.5 mmol/L Disposition Clinical Impression: Abdominal pain Disposition: HOME SELF-CARE Condition: Stable Instructions (If sedation given, give patient instructions): Abdominal Pain (ED) Is patient prescribed a controlled substance at d/c from ED?: No Referrals: Marysol Rose DO [Primary Care Provider] - 1-2 days Sylvester James MD [STAFF PHYSICIAN] - 1-2 days
[2020-07-02] MEDS ORDERED: ONDANSETRON 4 MG ODT STARTER PACK 2 TAB BTL PO STA (04:28)
[2020-07-02] MEDS ORDERED: SODIUM CHLORIDE 0.9% 1,000 ML IV ONE (04:52)
[2020-07-02] MEDS ORDERED: SODIUM CHLORIDE 0.9% 500 ML 500 ML IV ONE (06:09)
[2020-07-02 07:13] VITALS: BP 118/85; PULSE 75; TEMP 98.7
== END 2020-07-02 08:24 | disposition home or self-care (01) ==
LOC: EC 23:25
DX: R10.13 Epigastric pain (principal); R11.2 Nausea with vomiting, unspecified; R10.816 Epigastric abdominal tenderness; D72.829 Elevated white blood cell count, unspecified; R74.8 Abnormal levels of other serum enzymes; R79.89 Other specified abnormal findings of blood chemistry; E07.9 Disorder of thyroid, unspecified; F41.9 Anxiety disorder, unspecified; F32.9 Major depressive disorder, single episode, unspecified; M79.7 Fibromyalgia; J45.909 Unspecified asthma, uncomplicated; K21.9 Gastro-esophageal reflux disease without esophagitis; Z79.890 Hormone replacement therapy; Z79.899 Other long term (current) drug therapy; Z79.3 Long term (current) use of hormonal contraceptives; Z88.1 Allergy status to other antibiotic agents; Z91.040 Latex allergy status; Z88.0 Allergy status to penicillin; Z88.6 Allergy status to analgesic agent; Z91.013 Allergy to seafood; Z91.018 Allergy to other foods; Z88.5 Allergy status to narcotic agent; Z88.8 Allergy status to other drugs, medicaments and biological substances; Z90.49 Acquired absence of other specified parts of digestive tract; Z98.84 Bariatric surgery status; Z90.89 Acquired absence of other organs
CPT/HCPCS: 36415; 93005; 80053; 83690; 80178; 85025; 81001; 81025; 87086; 74018; 74177; 99285; 96374; 96375 ×2; 96361 ×2; J2405; J2270; S0119; C9113; Q9967 ×2

== ENCOUNTER 2020-07-02 18:12 | Inpatient (IN) | payer OTHER ==
[2020-07-02] MEDS ORDERED: MORPHINE SULFATE 4 MG/ML SYRINGE IV STA (19:14)
[2020-07-02] MEDS ORDERED: LORazepam 2 MG/ML INJ IV STA (19:14)
[2020-07-02] MEDS ORDERED: LORazepam 2 MG/ML INJ IV PRN (19:14)
[2020-07-02] MEDS ORDERED: SODIUM CHLORIDE 0.9% 500 ML 500 ML IV STA (19:14)
[2020-07-02] MEDS ORDERED: SODIUM CHLORIDE 0.9% 1,000 ML IV STA ×2 (19:14)
[2020-07-02] MEDS ORDERED: ONDANSETRON 4 MG/2 ML VIAL IVP STA (19:14)
[2020-07-02] MEDS ORDERED: PANTOPRAZOLE 40 MG/10 ML VIAL IVP STA (19:14)
--- NOTE | 2020-07-02 19:18 | ED ---
Recheck HPI - General Chief Complaint: Nausea/Vomiting/Diarrhea Stated Complaint: dehydration Time Seen by Provider: 07/02/20 19:05 Source: patient, RN notes reviewed, old records reviewed Mode of arrival: ambulatory Limitations: no limitations - History of Present Illness Initial Comments: This is a 24-year-old male DF for evaluation patient Dese for evaluation regards to nausea vomiting intractable nausea vomiting abdominal pain. DF for the yesterday for same. Patient states symptoms have just been progressive unable to take down any of her medications or any fluids at home no food. No fevers no other complaints MD Complaint: other (Patient for recheck of intractable nausea and vomiting) -: days(s) Returns Today for: persistent/worsening pain related to initial visit, other (Worsening nausea vomiting and anorexia) Symptoms Since Prior Visit: worsening pain Context: ran out of medication (unable to take medications) Associated Symptoms: none - Related Data Home Medications Medication Instructions Recorded Confirmed [place] Carbonate 300 mg PO QAM 08/27/15 06/12/20 Levothyroxine Sodium [Synthroid] 125 mcg PO QAM 01/06/17 06/12/20 Norgestimate-Ethinyl Estradiol 1 tab PO DAILY 02/04/18 06/12/20 [Sprintec 28 Day Tablet] DULoxetine HCL [Cymbalta] 60 mg PO BID 01/19/19 06/12/20 EPINEPHrine (Auto Inject) [Epipen] 0.3 mg IM DAILY PRN 01/19/19 06/12/20 Flunisolide [Aerospan] 2 puff INHALATION RT-BID PRN 01/19/19 06/12/20 Topiramate [Topiramate ER] 100 mg PO 04/26/20 06/12/20 [place] Carbonate 600 mg PO HS 04/30/20 06/12/20 Rizatriptan Benzoate [Rizatriptan] 10 mg PO DAILY PRN 04/30/20 06/12/20 traZODone HCL [Desyrel] 100 mg PO 04/30/20 06/12/20 Fluticasone Nasal [place] [Flonase 2 spr EA NOSTRIL DAILY PRN 05/16/20 06/12/20 Nasal [place]] Montelukast Sodium [Singulair] 10 mg PO HS 05/16/20 06/12/20 Ondansetron [Zofran] 4 mg PO TID PRN 05/16/20 06/12/20 Prochlorperazine [Compazine] 10 mg PO TID PRN 05/16/20 06/12/20 Omeprazole [PriLOSEC] 40 mg PO DAILY 06/12/20 06/12/20 diphenhydrAMINE [Benadryl] 50 mg PO DAILY PRN 06/12/20 06/12/20 Previous Rx's Medication Instructions Recorded L. Acidophilus/L.bulgaricus 1 each PO BID #10 tab.chew 06/15/20 [Lactinex Chewable Tablet] Sulfamethox-Tmp 800-160Mg [Bactrim 1 tab PO BID 3 Days #6 tab 06/15/20 DS 800-160 mg] Allergies Allergy/AdvReac Type Severity Reaction Status Date / Time ceftriaxone [From Rocephin] Allergy Itching Verified 07/02/20 18:36 fentanyl Allergy Rash/Hives Verified 07/02/20 18:36 latex Allergy Rash/Hives Verified 07/02/20 18:36 metoclopramide [From Reglan] Allergy Unknown Verified 07/02/20 18:36 Penicillins Allergy Anaphylaxis Verified 07/02/20 18:36 ibuprofen [From Motrin] AdvReac GI Bleed Verified 07/02/20 18:36 prazosin AdvReac Nausea & Verified 07/02/20 18:36 Vomiting grape juice Allergy Anaphylaxis Uncoded 07/02/20 18:36 Seafood Allergy Anaphylaxis Uncoded 07/02/20 18:36 Review of Systems ROS Statement: Those systems with pertinent positive or pertinent negative responses have been documented in the HPI. ROS Other: All systems not noted in ROS Statement are negative. Past Medical History Past Medical History: Asthma, Chest Pain / Angina, Fibromyalgia, GERD/Reflux, Liver Disease, Thyroid Disorder Additional Past Medical History / Comment(s): Cirrhosis of the liver (pt states these are partly due to her genetics and partly due to mental health medications she has been taking since age 4), Esophagitis. IBS. PART OF STOMACH NON- FUNCTIONING. BLOOD IN STOOL sometimes- last time one year ago, "fast heart beat" pt states that normal is around 100bpm, gastroporesis History of Any Multi-Drug Resistant Organisms: None Reported Past Surgical History: Appendectomy, Bariatric Surgery, Cholecystectomy, Tonsillectomy Additional Past Surgical History / Comment(s): NASAL Septum repair. COLONOSCOPY., gastric sleeve-04/26/2020 Past Anesthesia/Blood Transfusion Reactions: Motion Sickness Additional Past Anesthesia/Blood Transfusion Reaction / Comment(s): woke up once during surgery Past Psychological History: Anxiety, Depression, PTSD Smoking Status: Never smoker Past Alcohol Use History: None Reported Past Drug Use History: None Reported - Past Family History Father Family Medical History: Liver Disease Additional Family Medical History / Comment(s): at age 61 from COPD. ALso had cirrhosis,hepatitis C, pancreatitis, heart attacks (multiple) and esoph ab disease General Exam Limitations: no limitations General appearance: alert, in no apparent distress Head exam: Present: atraumatic, normocephalic, normal inspection Eye exam: Present: normal appearance, PERRL, EOMI. Absent: scleral icterus, conjunctival injection, periorbital swelling ENT exam: Present: normal exam, mucous membranes moist Neck exam: Present: normal inspection. Absent: tenderness, meningismus, lymphadenopathy Respiratory exam: Present: normal lung sounds bilaterally. Absent: respiratory distress, wheezes, rales, rhonchi, stridor Cardiovascular Exam: Present: regular rate, normal rhythm, normal heart sounds. Absent: systolic murmur, diastolic murmur, rubs, gallop, clicks GI/Abdominal exam: Present: soft, normal bowel sounds. Absent: distended, tenderness, guarding, rebound, rigid Extremities exam: Present: normal inspection, full ROM, normal capillary refill. Absent: tenderness, pedal edema, joint swelling, calf tenderness Back exam: Present: normal inspection Neurological exam: Present: alert, oriented X3, CN II-XII intact Psychiatric exam: Present: normal affect, normal mood Skin exam: Present: warm, dry, intact, normal color. Absent: rash Course Vital Signs 07/02/20 18:32 Temperature 98.1 F Pulse Rate 97 Respiratory 18 Rate Blood Pressure 143/94 O2 Sat by Pulse 99 Oximetry - Reevaluation(s) Reevaluation #1: 07/02/20 19:32 Medical record is reviewed 07/02/20 19:32 Reviewed patient's lab values and ER visit from yesterday Reevaluation #2: 07/02/20 19:32 Patient symptoms are improved Reevaluation #3: 07/02/20 19:32 The patient regarding symptoms and questions are answered patient regarding symptoms and questions are answered Medical Decision Making - Medical Decision Making 24 female to be admitted for intractable nausea and vomiting Disposition Clinical Impression: Nausea & vomiting, Psychiatric disorder, Intractable nausea and vomiting Disposition: ADMITTED IP TO THIS HOSP Condition: Fair Is patient prescribed a controlled substance at d/c from ED?: No Referrals: Marysol Rose DO [Primary Care Provider] - 1-2 days
[2020-07-02 19:46] LABS: Basophils % (A) 0 %; Eosinophils # (A) 0.3 k/uL (0-0.7); Eosinophils % (A) 3 %; HCT 43.2 % (34.0-46.0); HGB 13.2 gm/dL (11.4-16.0); Hypochromasia Slight; Lymphocytes # (A) 2.4 k/uL (1.0-4.8); Lymphocytes % (A) 26 %; MCH 26.4 pg (25.0-35.0); MCHC 30.5 g/dL (31.0-37.0); MCV 86.4 fL (80.0-100.0); Mean Platelet Volume 8.2; Monocytes # (A) 0.4 k/uL (0-1.0); Monocytes % (A) 5 %; Neutrophils % (A) 65 %; Platelet Count 252 k/uL (150-450); RDW 15.6 % (11.5-15.5); WBC 9.3 k/uL (3.8-10.6)
[2020-07-02 19:52] LABS: Appearance,Urine Clear (Clear); Bacteria,Urine Occasional /hpf; Bilirubin,Urine Negative (Negative); Blood,Urine Moderate (Negative); Color,Urine Yellow; Glucose,Urine (UA) Negative (Negative); Hyaline Casts,Urine 9 /lpf (0-2); Ketones,Urine Negative (Negative); Leukocyte Esterase,Urine Negative (Negative); Mucus,Urine Rare /hpf; Nitrite,Urine Negative (Negative); Protein,Urine Negative (Negative); RBC,Urine 3 /hpf (0-5); Specific Gravity,Urine 1.013 (1.001-1.035); Squamous Epithelial Cell,Urine 4 /hpf (0-4); Urobilinogen,Urine <2.0 mg/dL (<2.0); WBC,Urine 4 /hpf (0-5)
[2020-07-02 20:00] LABS: ALT 52 U/L (4-34); AST 48 U/L (14-36); African American GFR (CKD) >90 (>60 ml/min/1.73 sqM); Albumin 3.6 g/dL (3.5-5.0); Alkaline Phosphatase 102 U/L (38-126); Anion Gap 8 mmol/L; Blood Urea Nitrogen 3 mg/dL (7-17); Calcium 10.1 mg/dL (8.4-10.2); Carbon Dioxide 21 mmol/L (22-30); Chloride 112 mmol/L (98-107); Creatine Kinase 24 U/L (30-135); Glucose 99 mg/dL (74-99); Lithium 1.3 mmol/L; Non-African American GFR(CKD) >90 (>60 ml/min/1.73 sqM); Partial Thromboplastin Time 23.2 sec (22.0-30.0); Phosphorus 3.8 mg/dL (2.5-4.5); Potassium 4.2 mmol/L (3.5-5.1); Prothrombin Time 9.9 sec (9.0-12.0); Sodium 141 mmol/L (137-145); Total Bilirubin 0.5 mg/dL (0.2-1.3); Total Protein 6.6 g/dL (6.3-8.2)
[2020-07-02] MEDS: ONDANSETRON 4 MG/2 ML VIAL IVP PRN (23:40)
[2020-07-03] MEDS: PANTOPRAZOLE 40 MG/10 ML VIAL IVP SCH (08:40)
[2020-07-03] MEDS: DEXTROSE 5%-0.9% NACL 1,000 ML IV SCH (11:33)
[2020-07-03] MEDS ORDERED: haloperidoL 1 MG TAB PO PRN (12:19)
--- NOTE | 2020-07-03 12:28 | P.HPIM ---
History of Present Illness This is a pleasant 24 years old female with morbid obesity status post recent laparoscopic sleeve gastrectomy on 04/26/2020, possible fatty liver and bipolar disorder with schizophrenia. Other medical history including asthma, fib romyalgia, hypothyroidism, GERD, asthma, and pyelonephritis. She is a patient of Dr. Gregg She presents because of recurrent nausea vomiting and diarrhea for more than 3 days, she states that she's been vomiting a lot that she cannot take her medication, with diarrhea about twice this morning with no blood in it. She denies abdominal pain but she has right upper abdominal tenderness. No chest pain or dyspnea or fever. She denies depressive symptoms, no suicidal or homicidal ideation, no rodney ucination Earlier this morning she was agitated and she got 1 dose of Ativan 1 mg, also 4 mg of IV morphine. This morning she was a little bit more sleepy but easily arousable to verbal stimuli when I saw her earlier this afternoon Vital signs stable. Labs including CBC, INR, BMP.liver enzymes are slightly elevated with AST 48 ALT 52. Troponin is negative and lipase is normal and hematocrit and hCG in the serum is not detected. UA is not suspicious of infection. EKG shows sinus rhythm at 85 bpm with first- degree heart block and QTC of 495. In the emergency room patient was given Ativan, morphine, Zofran and Protonix. She got 2.5 L of normal saline . she is a started on D5 normal saline at 75 mL/h. Review of Systems CONSTITUTIONAL: No fever, no malaise, no fatigue. HEENT: No recent visual problems or hearing problems. Denied any sore throat. CARDIOVASCULAR: No orthopnea, PND, no palpitations, no syncope. PULMONARY: No shortness of breath, no cough, no hemoptysis. -GASTROINTESTINAL: As above NEUROLOGICAL: No headaches, no weakness, no numbness. HEMATOLOGICAL: Denies any bleeding or petechiae. GENITOURINARY: Denies any burning micturition, frequency, or urgency. MUSCULOSKELETAL/RHEUMATOLOGICAL: Denies any joint pain, swelling, or any muscle pain. ENDOCRINE: Denies any polyuria or polydipsia. Past Medical History Past Medical History: Asthma, Chest Pain / Angina, Fibromyalgia, GERD/Reflux, Li tory Disease, Thyroid Disorder Additional Past Medical History / Comment(s): Cirrhosis of the liver (pt states these are partly due to her genetics and partly due to mental health medications she has been taking since age 4), Esophagitis. IBS. PART OF STOMACH NON-FUNCTIONING. BLOOD IN STOOL sometimes- last time one year ago, "fast heart beat" pt states that normal is around 100bpm, gastroporesis History of Any Multi-Drug Resistant Organisms: None Reported Past Surgical History: Appendectomy, Bariatric Surgery, Cholecystectomy, Tonsillectomy Additional Past Surgical History / Comment(s): NASAL Septum repair. COLONOSCOPY., gastric sleeve-04/26/2020 Past Anesthesia/Blood Transfusion Reactions: Motion Sickness Additional Past Anesthesia/Blood Transfusion Reaction / Comment(s): woke up once during surgery Past Psychological History: Anxiety, Depression, PTSD Additional Psychological History / Comment(s): 04/20/19: Takes [place] and Cymbalta daily, agoraphobia Smoking Status: Never smoker Past Alcohol Use History: None Reported Past Drug Use History: None Reported - Past Family History Father Family Medical History: Liver Disease Additional Family Medical History / Comment(s): at age 61 from COPD. ALso had cirrhosis,hepatitis C, pancreatitis, heart attacks (multiple) and esophagus disease Medications and Allergies Home Medications Medication Instructions Recorded Confirmed Type Levothyroxine Sodium [Synthroid] 125 mcg PO QAM 01/06/17 07/02/20 History Norgestimate-Ethinyl Estradiol 1 tab PO DAILY 02/04/18 07/02/20 History [Sprintec 28 Day Tablet] DULoxetine HCL [Cymbalta] 60 mg PO BID 01/19/19 07/02/20 History EPINEPHrine (Auto Inject) [Epipen] 0.3 mg IM DAILY PRN 01/19/19 07/02/20 History Topiramate [Topiramate ER] 100 mg PO HS 04/26/20 07/02/20 History [place] Carbonate 300 mg PO TID 04/30/20 07/02/20 History Rizatriptan Benzoate [Rizatriptan] 10 mg PO DAILY PRN 04/30/20 07/02/20 History traZODone HCL [Desyrel] 50 mg PO HS PRN 04/30/20 07/02/20 History Fluticasone Nasal [place] [Flonase 2 spr EA NOSTRIL DAILY PRN 05/16/20 07/02/20 Hi story Nasal [place]] Montelukast Sodium [Singulair] 5 mg PO HS 05/16/20 07/02/20 History Ondansetron [Zofran] 4 mg PO TID PRN 05/16/20 07/02/20 History Prochlorperazine [Compazine] 10 mg PO TID PRN 05/16/20 07/02/20 History Omeprazole [PriLOSEC] 40 mg PO DAILY 06/12/20 07/02/20 History Ergocalciferol [Vitamin D2] 50,000 unit PO MO 07/02/20 07/02/20 History Allergies Allergy/AdvReac Type Severity Reaction Status Date / Time ceftriaxone [From Rocephin] Allergy Itching Verified 07/02/20 20:36 fentanyl Allergy Rash/Hives Verified 07/02/20 20:36 latex Allergy Rash/Hives Verified 07/02/20 20:36 metoclopramide [From Reglan] Allergy Unknown Verified 07/02/20 20:36 Penicillins Allergy Anaphylaxis Verified 07/02/20 20:36 ibuprofen [From Motrin] AdvReac GI Bleed Verified 07/02/20 20:36 prazosin AdvReac Nausea & Verified 07/02/20 20:36 Vomiting grape juice Allergy Anaphylaxis Uncoded 07/02/20 18:36 Seafood Allergy Anaphylaxis Uncoded 07/02/20 18:36 Physical Exam Vitals: Vital Signs Temp Pulse Pulse Resp BP BP Pulse Ox 07/03/20 09:00 98.7 F 94 14 105/74 97 07/03/20 02:24 98.9 F 107 H 18 111/77 98 07/02/20 21:16 97.6 F 102 H 19 98 07/02/20 20:50 97.3 F L 102 H 18 122/88 100 07/02/20 20:00 97.8 F 89 16 133/91 99 07/02/20 18:32 98.1 F 97 18 143/94 99 Intake and Output 07/02/20 07/03/20 07/03/20 22:59 06:59 14:59 Other: Voiding Method Toilet Toilet Weight 83.461 kg -GENERAL: The patient is alert and oriented x3, not in any acute distress. Obese HEENT: Pupils are round and equally reacting to light. EOMI. No scleral icterus. No conjunctival pallor. Normocephalic, atraumatic. No pharyngeal erythema. No thyromegaly. CARDIOVASCULAR: S1 and S2 present. No murmurs, rubs, or gallops. PULMONARY: Chest is clear to auscultation, no wheezing or crackles. -ABDOMEN: Soft, right upper tenderness with no rebound tenderness or guarding, nondistended, normoactive bowel sounds. No palpable organomegaly. MUSCULOSKELETAL: No joint swelling or deformity. EXTREMITIES: No cyanosis, clubbing, or pedal edema. NEUROLOGICAL: Gross neurological examination did not reveal any focal deficits. SKIN: No rashes. No petechiae Results CBC & Chem 7: 07/02/20 19:32 07/02/20 19:32 Labs: Abnormal Lab Results - Last 24 Hours (Table) 07/02/20 07/02/20 07/02/20 Range/Units 19:32 19:32 19:32 MCHC 30.5 L (31.0-37.0) g/dL RDW 15.6 H (11.5-15.5) % Chloride 112 H (98-107) mmol/L Carbon Dioxide 21 L (22-30) mmol/L BUN 3 L (7-17) mg/dL AST 48 H (14-36) U/L ALT 52 H (4-34) U/L Creatine Kinase 24 L (30-135) U/L Urine Blood Moderate H (Negative) Urine Bacteria Occasional H (None) /hpf Hyaline Casts 9 H (0-2) /lpf Urine Mucus Rare H (None) /hpf Thrombosis Risk Factor Assmnt - Choose All That Apply Any of the Below Risk Factors Present?: No Assessment and Plan Assessment: nausea vomiting and diarrhea, most likely acute gastroenteritis which could be viral, less likely bacterial. Rule out C. diff Obesity with BMI of 34, status post recent laparoscopic sleeve gastrectomy on 04/26/2020 history of Migraine history of Fibromyalgia Hypothyroidism GERD Asthma not in exacerbation Hepatic steatosis history of Bipolar disorder and schizophrenia Obesity with BMI 37.3 Plan: this is a pleasant 24 years old female who presents with recurrent nausea vomiting suspicious for gastroenteritis . Continue with IV fluid, bowel rest, anti-emetic medication. we'll start the patient on Flagyl and check pro calcitonin . we will check for C. diff. Surgical consult . We will keep monitor the patient closely Labs and medication were reviewed.. Continue same treatment. Continue with symptomatic treatment. Resume home medication. Monitor lytes and vitals. DVT and GI prophylaxis. Further recommendations depends on the clinical course of the patient DVT prophylaxis: Subcutaneous heparin GI Prophylaxis: Ppi
--- NOTE | 2020-07-03 14:13 | CT ---
EXAMINATION TYPE: CT brain wo con DATE OF EXAM: 07/03/2020 COMPARISON: 05/21/2017 HISTORY: Drowsiness; headache CT DLP: 1099.4 mGycm Automated exposure control for dose reduction was used. Ventricles have normal size. There is no mass effect nor midline shift. There is no sign of intracran ial hemorrhage. There is no evidence of cerebral edema. The calvarium is intact. Sella turcica appear s normal. Temporal bones appear normal. IMPRESSION: Normal unenhanced head CT scan. No change.
[2020-07-03] MEDS: metroNIDAZOLE-NS PMX 500 MG in SALINE 1 100ML.BAG IVPB SCH ×2 (17:49→23:34)
[2020-07-03] MEDS: CALCIUM CARBONATE 500 MG CHEWABLE PO PRN ×2 (17:49→22:54)
[2020-07-03] MEDS: ONDANSETRON 4 MG/2 ML VIAL IVP PRN ×2 (18:27→23:34)
[2020-07-03] MEDS: HEPARIN SODIUM,PORCINE 5,000 UNIT/ML 1 ML VIAL SQ SCH (20:09)
[2020-07-04] MEDS: DEXTROSE 5%-0.9% NACL 1,000 ML IV SCH ×4 (02:43→22:02)
[2020-07-04] MEDS ORDERED: MORPHINE SULFATE 2 MG/ML SYRINGE IVP STA (06:48)
[2020-07-04] MEDS: ONDANSETRON 4 MG/2 ML VIAL IVP PRN ×3 (06:53→18:26)
[2020-07-04] MEDS ORDERED: traZODone HCL 50 MG TAB PO PRN (09:03)
[2020-07-04] MEDS: HEPARIN SODIUM,PORCINE 5,000 UNIT/ML 1 ML VIAL SQ SCH ×2 (09:56→21:48)
[2020-07-04] MEDS: PANTOPRAZOLE 40 MG/10 ML VIAL IVP SCH ×2 (09:56→21:48)
[2020-07-04] MEDS: LEVOTHYROXINE 125 MCG TAB PO SCH (09:56)
[2020-07-04] MEDS: metroNIDAZOLE-NS PMX 500 MG in SALINE 1 100ML.BAG IVPB SCH ×2 (09:56→15:38)
[2020-07-04] MEDS ORDERED: MAG HYDROX/AL HYDROX/SIMETH 30 ML CUP PO PRN (10:36)
[2020-07-04] MEDS: MAG HYDROX/AL HYDROX/SIMETH 30 ML CUP PO PRN (11:06)
--- NOTE | 2020-07-04 12:08 | P.GSCN ---
History of Present Illness Consult date: 07/04/20 History of present illness: CHIEF COMPLAINT: Nausea vomiting and diarrhea 3 days HISTORY OF PRESENT ILLNESS: This is a 24-year-old female with a known past medical history of Morbid obesity status post laparoscopic sleeve gastrectomy on 04/26/2020. She also has a Surgical history of an appendectomy, cholecystectomy.She has a history of bipolar, schizophrenia disorder And possible fatty liver disease. Patient presents to the emergency room with a three-day history of heartburn and indigestion with nausea vomiting and diarrhea. Patient is still complaining of some heartburn and nausea. She's having a few episodes of vomiting with bile. She reports the diarrhea is better. She denies any abdominal pain. Stool for C. diff was negative. She reports that she was unable to keep any food or medications down at home and she came became concerned. She reports that she was unsure if she could take Tums. Patient was educated that she is able to take Tums. She is afebrile. Stool for C. diff negative. PAST MEDICAL HISTORY: See list. PAST SURGICAL HISTORY: See list. MEDICATIONS: See list. ALLERGIES: See list. SOCIAL HISTORY: No illicit drug use. REVIEW OF SYSTEMS: CONSTITUTIONAL: Denies fever or chills. HEENT: Denies blurred vision, vision changes, or eye pain. Denies hemoptysis CARDIOVASCULAR: Denies chest pain or pressure. RESPIRATORY: No shortness of breath. GASTROINTESTINAL: See HPI for pertinent findings HEMATOLOGIC: Denies bleeding disorders. GENITOURINARY: Denies any blood in urine or increased urinary frequency. SKIN: Denies pruitis. Denies rash. PHYSICAL EXAM: VITAL SIGNS: Reviewed GENERAL: Well-developed in no acute distress. HEENT: No sclera icterus. Extraocular movements grossly intact. Moist buccal mucosa. Head is atraumatic, normocephalic. No nasal drainage. ABDOMEN: Soft. Obese. Nondistended. Nontender with palpation. Incision sites have healed nicely NEUROLOGIC: Alert and oriented. Cranial nerves II through XII grossly intact. LABORATORY DATA: WBC 9.3 hemoglobin 13.2 AST 48 ALT 52 C. diff negative UA negative for infection IMAGING: ASSESSMENT: 1. Nausea, vomiting and diarrhea with heartburn and indigestion likely related to a viral gastroenteritis 2. Morbid obesity with previous Laparoscopic sleeve gastrectomy on 04/26/2020 3. Morbid obesity PLAN: -Increase Protonix to 40 mg IV twice a day. Continue the Zofran as needed -Add Maalox 30 mL every 4 hours as needed -Continue with IV fluid hydration -No surgical intervention planned Thank you for this consultation. Physician Mix Technician note has been reviewed by physician. Signing provider agrees with the documented findings, assessment, and plan of care. Past Medical History Past Medical History: Asthma, Chest Pain / Angina, Fibromyalgia, GERD/Reflux, Liver Disease, Thyroid Disorder Additional Past Medical History / Comment(s): Cirrhosis of the liver (pt states these are partly due to her genetics and partly due to mental health medications she has been taking since age 4), Esophagitis. IBS. PART OF STOMACH NON- FUNCTIONING. BLOOD IN STOOL sometimes- last time one year ago, "fast heart beat" pt states that normal is around 100bpm, gastroporesis History of Any Multi-Drug Resistant Organisms: None Reported Past Surgical History: Appendectomy, Bariatric Surgery, Cholecystectomy, Tonsillectomy Additional Past Surgical History / Comment(s): NASAL Septum repair. COLONOS COPY., gastric sleeve-04/26/2020 Past Anesthesia/Blood Transfusion Reactions: Motion Sickness Additional Past Anesthesia/Blood Transfusion Reaction / Comm: woke up once during surgery Past Psychological History: Anxiety, Depression, PTSD Additional Psychological History / Comment(s): 04/20/19: Takes [place] and Cymbalta daily, agoraphobia Smoking Status: Never smoker Past Alcohol Use History: None Reported Past Drug Use History: None Reported - Past Family History Father Family Medical History: Liver Disease Additional Family Medical History / Comment(s): at age 61 from COPD. ALso had cirrhosis,hepatitis C, pancreatitis, heart attacks (multiple) and esophagus disease Medications and Allergies Home Medications Medication Instructions Recorded Confirmed Type Levothyroxine Sodium [Synthroid] 125 mcg PO QAM 01/06/17 07/02/20 History Norgestimate-Ethinyl Estradiol 1 tab PO DAILY 02/04/18 07/02/20 History [Sprintec 28 Day Tablet] DULoxetine HCL [Cymbalta] 60 mg PO BID 01/19/19 07/02/20 History EPINEPHrine (Auto Inject) [Epipen] 0.3 mg IM DAILY PRN 01/19/19 07/02/20 History Topiramate [Topiramate ER] 100 mg PO HS 04/26/20 07/02/20 History [place] Carbonate 300 mg PO TID 04/30/20 07/02/20 History Rizatriptan Benzoate [Rizatriptan] 10 mg PO DAILY PRN 04/30/20 07/02/20 History traZODone HCL [Desyrel] 50 mg PO HS PRN 04/30/20 07/02/20 History Fluticasone Nasal [place] [Flonase 2 spr EA NOSTRIL DAILY PRN 05/16/20 07/02/20 History Nasal [place]] Montelukast Sodium [Singulair] 5 mg PO HS 05/16/20 07/02/20 History Ondansetron [Zofran] 4 mg PO TID PRN 05/16/20 07/02/20 History Prochlorperazine [Compazine] 10 mg PO TID PRN 05/16/20 07/02/20 History Omeprazole [PriLOSEC] 40 mg PO DAILY 06/12/20 07/02/20 History Ergocalciferol [Vitamin D2] 50,000 unit PO MO 07/02/20 07/02/20 History Allergies Allergy/AdvReac Type Severity Reaction Status Date / Time ceftriaxone [From Rocephin] Allergy Itching Verified 07/02/20 20:36 fentanyl Allergy Rash/Hives Verified 07/02/20 20:36 latex Allergy Rash/Hives Verified 07/02/20 20:36 metoclopramide [From Reglan] Allergy Unknown Verified 07/02/20 20:36 Penicillins Allergy Anaphylaxis Verified 07/02/20 20:36 ibuprofen [From Motrin] AdvReac GI Bleed Verified 07/02/20 20:36 prazosin AdvReac Nausea & Verified 07/02/20 20:36 Vomiting grape juice Allergy Anaphylaxis Uncoded 07/02/20 18:36 Seafood Allergy Anaphylaxis Uncoded 07/02/20 18:36 Surgical - Exam Vital Signs Temp Pulse Resp BP Pulse Ox 98.1 F 97 18 143/94 99 07/02/20 18:32 07/02/20 18:32 07/02/20 18:32 07/02/20 18:32 07/02/20 18:32 Results - Labs 07/02/20 19:32 07/02/20 19:32 Abnormal Lab Results - Last 24 Hours (Table) 07/02/20 Range/Units 19:32 Procalcitonin 0.15 H (0.02-0.09) ng/mL
[2020-07-04] MEDS: traMADol 50 MG TAB PO PRN (13:27)
[2020-07-04] MEDS: CALCIUM CARBONATE 500 MG CHEWABLE PO PRN (13:31)
[2020-07-04] MEDS: LITHIUM CARBONATE 300 MG CAP PO SCH ×2 (15:38→21:48)
--- NOTE | 2020-07-04 17:14 | P.PN ---
Subjective Progress Note Date: 07/04/20 Hospital course:This is a 24-year-old female, history of recent sleeve gastrectomy and multiple other medical issues, admitted with nausea, vomiting and diarrhea 3 days. Reports she consumed orange juice prior to admission and feels that it contributed to her symptoms. Nausea persists with mild emesis of bile. Diarrhea improving. Stool for C. diff negative. Afebrile. Objective - Vital Signs Vital signs: Vital Signs Temp 98.5 F 07/04/20 08:55 Pulse 86 07/04/20 08:55 Resp 16 07/04/20 08:55 BP 118/72 07/04/20 08:55 Pulse Ox 98 07/04/20 08:55 Intake & Output 07/03/20 07/04/20 07/04/20 18:59 06:59 18:59 Intake Total 600 Balance 600 Intake: Intake, IV Titration 600 Amount Dextrose 5%-0.9% NaCl 1, 300 000 ml @ 75 mls/hr IV . [id number] JERARDO Rx#:[id number] Sodium Chloride 0.9% 1, 300 000 ml @ 130 mls/hr IV . [id number] STA Rx#:[id number] Other: Voiding Method Toilet Toilet # Voids 2 # Bowel Movements 1 - Exam PHYSICAL EXAMINATION: GENERAL: Lying in bed, no acute distress, vital signs reviewed HEENT: normocephalic, PERRL, EOMI, conjunctiva normal, oral mucosa moist Neck: Supple, no JVD Lungs: normal respiratory effort, no wheezes or rales CARDIAC: Normal S1, S2 with no gallops. No murmurs ABDOMEN: Soft. Nondistended, nontender.no guarding .No organomegaly .Bowel soun ds normal. Extremities: reveal no edema. No clubbing or cyanosis Skin: Warm and dry, no rash Neurologically awake, alert, oriented x3 with well-coordinated movements. No focal deficits noted - Labs CBC & Chem 7: 07/02/20 19:32 07/02/20 19:32 Labs: Abnormal Lab Results - Last 24 Hours (Table) 07/02/20 Range/Units 19:32 Procalcitonin 0.15 H (0.02-0.09) ng/mL Assessment and Plan Assessment: Nausea, vomiting, diarrhea , possible Acute viral gastroenteritis Recent pyelonephritis with E. coli Migraine, history of Fibromyalgia Hypothyroidism GERD Asthma not in exacerbation Hepatic steatosis Bipolar disorder Morbid Obesity with BMI 34.8 Recent gastric sleeve surgery, 04/26/2020, noncompliant with bariatric diet Hypothyroidism Plan: Continue on current medication regime ,monitoring and symptomatic treatment. Gentle IV fluid hydration. Anti-emetics, PPI increased. Evaluated by surgery with recommendations noted and appreciated. Scheduled for esophagram tomorrow. Discharge planning in progress pending surgical clearance. The impression and plan of care has been dictated as directed. : I performed a history and examination of this patient, discussed the same with the dictator. I agree with the dictator's note ,documented as a scribe. Any a dditional findings or plans will be noted.
[2020-07-04] MEDS: TOPIRAMATE 25 MG TAB PO SCH (21:47)
[2020-07-05] MEDS: metroNIDAZOLE-NS PMX 500 MG in SALINE 1 100ML.BAG IVPB SCH ×3 (00:35→16:56)
[2020-07-05] MEDS: ONDANSETRON 4 MG/2 ML VIAL IVP PRN ×3 (02:22→18:22)
[2020-07-05] MEDS: CALCIUM CARBONATE 500 MG CHEWABLE PO PRN ×2 (05:51→12:18)
[2020-07-05] MEDS: LEVOTHYROXINE 125 MCG TAB PO SCH (05:51)
[2020-07-05] MEDS ORDERED: PANTOPRAZOLE 40 MG TABLET PO SCH (07:30)
[2020-07-05 09:35] LABS: African American GFR (CKD) >90 (>60 ml/min/1.73 sqM); Anion Gap 7 mmol/L; Blood Urea Nitrogen <2 mg/dL (7-17); Calcium 9.3 mg/dL (8.4-10.2); Carbon Dioxide 25 mmol/L (22-30); Chloride 114 mmol/L (98-107); Glucose 105 mg/dL (74-99); Non-African American GFR(CKD) >90 (>60 ml/min/1.73 sqM); Potassium 3.4 mmol/L (3.5-5.1); Sodium 146 mmol/L (137-145)
[2020-07-05] MEDS ORDERED: Potassium Replacement Protocol 1 EACH MISC MISCELLANE PRN (09:41)
--- NOTE | 2020-07-05 09:49 | P.PN ---
Subjective Progress Note Date: 07/05/20 Hospital course:This is a 24-year-old female, history of recent sleeve gastrectomy and multiple other medical issues, admitted with nausea, vomiting and diarrhea 3 days. Reports she consumed orange juice prior to admission and feels that it contributed to her symptoms. Nausea persists with mild emesis of bile. Diarrhea improving. Stool for C. diff negative. Afebrile. 07/05/2020 NPO, scheduled for esophagram this am. Persistent nausea, minimal emesis. Reports diarrhea. Denies chest pain, palpitations or shortness of breath. Afebrile. Potassium 3.4. Objective - Vital Signs Vital signs: Vital Signs Temp 98.4 F 07/05/20 02:20 Pulse 85 07/05/20 02:20 Resp 16 07/05/20 02:20 BP 136/87 07/05/20 02:20 Pulse Ox 99 07/05/20 02:20 Intake & Output 07/04/20 07/05/20 07/05/20 18:59 06:59 18:59 Intake Total 1000 Balance 1000 Intake: Intake, IV Titration 1000 Amount Dextrose 5%-0.9% NaCl 1, 900 000 ml @ 75 mls/hr IV . [id number] JERARDO Rx#:[id number] metroNIDAZOLE-NS PMX 500 100 mg In Saline 1 100ml.bag @ 100 mls/hr IVPB Q8HR JERARDO Rx#:[id number] Other: Voiding Method Toilet Toilet # Voids 1 2 - Exam PHYSICAL EXAMINATION: GENERAL: Lying in bed, no acute distress, vital signs reviewed HEENT: normocephalic, PERRL, EOMI, conjunctiva normal. Oral mucosa dry Neck: Supple, no JVD Lungs: normal respiratory effort, lung sounds clear. CARDIAC: Normal S1, S2 with no gallops. No murmurs ABDOMEN: Soft. Nondistended, nontender.no guarding .No organomegaly .Bowel sounds hypoactive. Extremities: reveal no edema. No clubbing or cyanosis Skin: Warm and dry, no rash Neurologically awake, alert, oriented x3 with well-coordinated movements. No focal deficits noted - Labs CBC & Chem 7: 07/02/20 19:32 07/02/20 19:32 Assessment and Plan Assessment: Nausea, vomiting, diarrhea , possible Acute viral gastroenteritis Hypokalemia Recent pyelonephritis with E. coli Migraine, history of Fibromyalgia Hypothyroidism GERD Asthma not in exacerbation Hepatic steatosis Bipolar disorder Morbid Obesity with BMI 34.8 Recent gastric sleeve surgery, 04/26/2020, noncompliant with bariatric diet Hypothyroidism Plan: Continue on current medication regime ,monitoring and symptomatic treatment. NPO, COntinue IV fluid hydration, anti-emetics, PPI. Esophagram pending. Potassium 3.4, Potassium replacement protocol ordered. Magnesium level added on. The impression and plan of care has been dictated as directed. : I performed a history and examination of this patient, discussed the same with the dictator. I agree with the dictator's note ,documented as a scribe. Any additional findings or plans will be noted.
[2020-07-05] MEDS: HEPARIN SODIUM,PORCINE 5,000 UNIT/ML 1 ML VIAL SQ SCH ×2 (10:03→20:45)
[2020-07-05] MEDS: PANTOPRAZOLE 40 MG/10 ML VIAL IVP SCH ×2 (10:04→20:45)
[2020-07-05] MEDS: LITHIUM CARBONATE 300 MG CAP PO SCH ×3 (10:04→22:11)
[2020-07-05] MEDS: TOPIRAMATE 25 MG TAB PO SCH ×2 (10:04→20:44)
--- NOTE | 2020-07-05 10:16 | FL ---
EXAMINATION TYPE: FL UGI w esophagus DATE OF EXAM: 07/05/2020 COMPARISON: CT 07/02/2020 and postoperative swallow study 05/17/2020 HISTORY: 24-year-old female abdominal pain, vomiting, recent sleeve gastrectomy. TECHNIQUE: A single contrast esophagram with UGI study is performed. Total images: 16 Total fluoroscopy time: 1 minute 18 seconds. FINDINGS: The patient was unsteady on her feet and had difficulty responding to questions. The patient was only able to tolerate a single swallow of approximately 1 ounce of thin barium. There is normal course and caliber of the thoracic esophagus. There is prompt passage of contrast into the stomach and along the gastric sleeve. Prior to passing into the pylorus and duodenal bulb, a few episodes of moderate gastroesophageal refl ux are visualized. The patient was nauseated this entire time and began feeling some relief for approximately 3 minutes after the initial ingestion at which time, half of the contrast had passed into the small bowel. The patient threw up a second attempt to swallow saying that it was too thick to swallow. IMPRESSION: 1. Only a total of 1 ounce of thin barium was ingested which exacerbated the patient's nausea. There was approximately 3 minutes before the patient began to feel some relief, at which time, half of the contrast had passed into the small bowel. 2. No jana obstruction is seen. There is limitation in assessment due to the very small volume of sw allowed contrast. 3. Before passing into the duodenum, a few episodes of moderate gastroesophageal reflux were demonstr ated. However, contrast was seen to pass promptly across the sleeve at the initial swallow.
--- NOTE | 2020-07-05 10:52 | P.PN ---
Subjective Progress Note Date: 07/05/20 CHIEF COMPLAINT: Nausea, vomiting and diarrhea 3 days HISTORY OF PRESENT ILLNESS: Patient seen and examined with Dr. martinez. Patient still having some nausea And small episodes of vomiting. She did have her esophagram completed Only a total of 1 ounce of thin barium was ingested which exacerbate patient's nausea.No evidence of obstruction. Before passing into the duodenal on a few episodes of moderate astroesophageal reflux were demonstrated. However contrast was seen to pass promptly across the sleeve at initial swallow. she is afebrile.Potassium is 3.4 being replaced. magnesium 2.0 PHYSICAL EXAM: VITAL SIGNS: Reviewed. GENERAL: Well-developed in no acute distress. HEENT: No sclera icterus. Extraocular movements grossly intact. Moist buccal mucosa. Head is atraumatic, normocephalic. ABDOMEN: Soft. Nondistended. Nontender. Physical sites of healed nicely NEUROLOGIC: Alert and oriented. Cranial nerves II through XII grossly intact. ASSESSMENT: 1. Nausea, vomiting and diarrhea with heartburn and indigestion likely related to a viral gastroenteritis 2. Morbid obesity with previous Laparoscopic sleeve gastrectomy on 04/26/2020 3. Morbid obesity PLAN: -Add thiamine 200 mg IV every 12 hours, this may help with patient's nausea -Continue Protonix to 40 mg IV twice a day. Continue the Zofran as needed -Continue Maalox 30 mL every 4 hours as needed -Continue with IV fluid hydration -No surgical intervention planned Physician Member Of Congress note has been reviewed by physician. Signing provider agrees with the documented findings, assessment, and plan of care. Objective - Vital Signs Vital signs: Vital Signs Temp 98.2 F 07/05/20 09:00 Pulse 80 07/05/20 09:00 Resp 16 07/05/20 09:00 BP 125/76 07/05/20 09:00 Pulse Ox 98 07/05/20 09:00 Intake & Output 07/04/20 07/05/20 07/05/20 18:59 06:59 18:59 Intake Total 1000 Balance 1000 Intake: Intake, IV Titration 1000 Amount Dextrose 5%-0.9% NaCl 1, 900 000 ml @ 75 mls/hr IV . [id number] [facility] Rx#:[id number] metroNIDAZOLE-NS PMX 500 100 mg In Saline 1 100ml.bag @ 100 mls/hr IVPB Q8HR [facility] Rx#:[id number] Other: Voiding Method Toilet Toilet # Voids 1 2 - Labs CBC & Chem 7: 07/02/20 19:32 07/05/20 08:29 Labs: Abnormal Lab Results - Last 24 Hours (Table) 07/05/20 Range/Units 08:29 Sodium 146 H (137-145) mmol/L Potassium 3.4 L (3.5-5.1) mmol/L Chloride 114 H (98-107) mmol/L BUN <2 L (7-17) mg/dL Glucose 105 H (74-99) mg/dL
[2020-07-05] MEDS: MAG HYDROX/AL HYDROX/SIMETH 30 ML CUP PO PRN ×2 (12:18→18:22)
[2020-07-05] MEDS: THIAMINE 200 MG in SODIUM CHLORIDE 0.9% 100 ML IVPB SCH ×2 (12:18→20:45)
[2020-07-05] MEDS: traMADol 50 MG TAB PO PRN ×2 (14:39→22:16)
[2020-07-05] MEDS: DEXTROSE 5%-0.9% NACL 1,000 ML IV SCH (14:39)
[2020-07-06] MEDS: metroNIDAZOLE-NS PMX 500 MG in SALINE 1 100ML.BAG IVPB SCH ×3 (00:04→15:18)
[2020-07-06 02:49] VITALS: RESP 16
[2020-07-06] MEDS: CALCIUM CARBONATE 500 MG CHEWABLE PO PRN ×2 (04:04→12:47)
[2020-07-06] MEDS: DEXTROSE 5%-0.9% NACL 1,000 ML IV SCH (04:05)
[2020-07-06] MEDS: LEVOTHYROXINE 125 MCG TAB PO SCH (06:18)
[2020-07-06] MEDS: ONDANSETRON 4 MG/2 ML VIAL IVP PRN (06:48)
[2020-07-06 07:38] VITALS: TEMP 97.7
[2020-07-06] MEDS: LITHIUM CARBONATE 300 MG CAP PO SCH ×2 (07:38→15:18)
[2020-07-06] MEDS: HEPARIN SODIUM,PORCINE 5,000 UNIT/ML 1 ML VIAL SQ SCH (07:38)
[2020-07-06] MEDS: PANTOPRAZOLE 40 MG/10 ML VIAL IVP SCH (07:38)
[2020-07-06] MEDS: TOPIRAMATE 25 MG TAB PO SCH (07:39)
[2020-07-06 08:52] LABS: African American GFR (CKD) >90 (>60 ml/min/1.73 sqM); Anion Gap 4 mmol/L; Blood Urea Nitrogen <2 mg/dL (7-17); Calcium 9.3 mg/dL (8.4-10.2); Carbon Dioxide 26 mmol/L (22-30); Chloride 113 mmol/L (98-107); Glucose 91 mg/dL (74-99); Non-African American GFR(CKD) >90 (>60 ml/min/1.73 sqM); Potassium 3.2 mmol/L (3.5-5.1); Sodium 143 mmol/L (137-145)
[2020-07-06] MEDS ORDERED: Potassium Replacement Protocol 1 EACH MISC MISCELLANE PRN ×2 (08:53→09:31)
[2020-07-06] MEDS ORDERED: POTASSIUM CHLORIDE ER 20 MEQ TAB.ER PO SCH (09:00)
[2020-07-06] MEDS: POTASSIUM CHLORIDE ER 20 MEQ TAB.ER PO SCH ×2 (09:42→11:34)
[2020-07-06] MEDS: THIAMINE 200 MG in SODIUM CHLORIDE 0.9% 100 ML IVPB SCH (09:44)
[2020-07-06] MEDS: MAG HYDROX/AL HYDROX/SIMETH 30 ML CUP PO PRN (09:45)
--- NOTE | 2020-07-06 10:17 | P.DS ---
Providers Date of admission: 07/04/20 15:41 Expected date of discharge: 07/06/20 Attending physician: Lon Goldberg MD Consults: 07/03/20 12:23 Consult Physician Routine Consulting Provider: Sylvester James Consult Reason/Comments: abd pain Do you want consulting provider notified?: Yes Primary care physician: Marysol Rose Hospital Course: Final Diagnoses: Nausea, vomiting, diarrhea , possible Acute viral gastroenteritis, improved Hypokalemia Recent pyelonephritis with E. coli Migraine, history of Fibromyalgia Hypothyroidism GERD Asthma not in exacerbation Hepatic steatosis Bipolar disorder Morbid Obesity with BMI 34.8 Recent gastric sleeve surgery, 04/26/2020, noncompliant with bariatric diet Hypothyroidism Hospital course:This is a 24-year-old female, history of recent sleeve gastrectomy and multiple other medical issues, admitted with nausea, vomiting and diarrhea 3 days. Reports she consumed orange juice prior to admission and feels that it contributed to her symptoms. Nausea persists with mild emesis of bile. Diarrhea improving. Stool for C. diff negative. Afebrile. 07/05/2020 NPO, scheduled for esophagram this am. Persistent nausea, minimal emesis. Reports diarrhea. Denies chest pain, palpitations or shortness of breath. Afebrile. Potassium 3.4. 07/06/2020 esophagram performed yesterday reporting minimal consumption of thin barium exacerbating patient's nausea with no evidence of obstruction, few episodes of moderate gastroesophageal reflux, contrast passed probably across the sleeve at initial swallow. Significant clinical improvement. Cleared by surgery for discharge. Potassium 3.2, currently being replaced. Patient will be discharged home today pending follow-up normal potassium level, in a stable condition with guarded prognosis. The impression and plan of care has been dictated as directed. : I performed a history and examination of this patient, discussed the same with the dictator. I agree with the dictator's note ,documented as a scribe. Any additional findings or plans will be noted.. Patient Condition at Discharge: Stable Plan - Discharge Summary Discharge Rx Participant: No New Discharge Prescriptions: Continue Levothyroxine Sodium [Synthroid] 125 mcg PO QAM Norgestimate-Ethinyl Estradiol [Sprintec 28 Day Tablet] 1 tab PO DAILY DULoxetine HCL [Cymbalta] 60 mg PO BID EPINEPHrine (Auto Inject) [Epipen] 0.3 mg IM DAILY PRN PRN Reason: Allergic Reaction Topiramate [Topiramate ER] 100 mg PO HS traZODone HCL [Desyrel] 50 mg PO HS PRN PRN Reason: Insomnia [place] Carbonate 300 mg PO TID Rizatriptan Benzoate [Rizatriptan] 10 mg PO DAILY PRN PRN Reason: Migraine Headache Ondansetron [Zofran] 4 mg PO TID PRN PRN Reason: Nausea Prochlorperazine [Compazine] 10 mg PO TID PRN PRN Reason: Nausea Montelukast Sodium [Singulair] 5 mg PO HS Fluticasone Nasal [place] [Flonase Nasal [place]] 2 spr EA NOSTRIL DAILY PRN PRN Reason: Allergy Symptoms Omeprazole [PriLOSEC] 40 mg PO DAILY Ergocalciferol [Vitamin D2 (DRISDOL)] 50,000 unit PO MO Discharge Medication List Levothyroxine Sodium [Synthroid] 125 mcg PO QAM 01/06/17 [History] Norgestimate-Ethinyl Estradiol [Sprintec 28 Day Tablet] 1 tab PO DAILY 02/04/18 [History] DULoxetine HCL [Cymbalta] 60 mg PO BID 01/19/19 [History] EPINEPHrine (Auto Inject) [Epipen] 0.3 mg IM DAILY PRN 01/19/19 [History] Topiramate [Topiramate ER] 100 mg PO HS 04/26/20 [History] [place] Carbonate 300 mg PO TID 04/30/20 [History] Rizatriptan Benzoate [Rizatriptan] 10 mg PO DAILY PRN 04/30/20 [History] traZODone HCL [Desyrel] 50 mg PO HS PRN 04/30/20 [History] Fluticasone Nasal [place] [Flonase Nasal [place]] 2 spr EA NOSTRIL DAILY PRN 05/16/20 [History] Montelukast Sodium [Singulair] 5 mg PO HS 05/16/20 [History] Ondansetron [Zofran] 4 mg PO TID PRN 05/16/20 [History] Prochlorperazine [Compazine] 10 mg PO TID PRN 05/16/20 [History] Omeprazole [PriLOSEC] 40 mg PO DAILY 06/12/20 [History] Ergocalciferol [Vitamin D2 (DRISDOL)] 50,000 unit PO MO 07/02/20 [History] Follow up Appointment(s)/Referral(s): Marysol Rose DO [Primary Care Provider] - 07/08/20 12:45 pm (Pt will be seen at the [place] office by Dr Lon Goldberg. Address is: [address] [place] [address].) Sylvester James MD [STAFF PHYSICIAN] - 07/11/20 1:30 pm (appointment at [facility] located in [facility].)
--- NOTE | 2020-07-06 10:35 | P.PN ---
Subjective Progress Note Date: 07/06/20 CHIEF COMPLAINT: Nausea, vomiting and diarrhea 3 days HISTORY OF PRESENT ILLNESS: Patient is feeling better today. Her vomiting has stopped. She tolerated diet this morning. She is passing gas. Denies abdominal pain. Esophagram showed no evidence of any leak or obstruction. Afebrile. PHYSICAL EXAM: VITAL SIGNS: Reviewed. GENERAL: Well-developed in no acute distress. HEENT: No sclera icterus. Extraocular movements grossly intact. Moist buccal mucosa. Head is atraumatic, normocephalic. ABDOMEN: Soft. Nondistended. Nontender. Physical sites of healed nicely NEUROLOGIC: Alert and oriented. Cranial nerves II through XII grossly intact. ASSESSMENT: 1. Nausea, vomiting and diarrhea with heartburn and indigestion likely related to a viral gastroenteritis 2. Morbid obesity with previous Laparoscopic sleeve gastrectomy on 04/26/2020 3. Morbid obesity PLAN: -No surgical intervention planned -Patient to follow-up with Dr. James in 1 week Physician Administrative Services Coordinator note has been reviewed by physician. Signing provider agrees with the documented findings, assessment, and plan of care. Objective - Vital Signs Vital signs: Vital Signs Temp 97.7 F 07/06/20 07:37 Pulse 77 07/06/20 07:37 Resp 16 07/06/20 07:37 BP 125/87 07/06/20 07:37 Pulse Ox 98 07/06/20 07:37 Intake & Output 07/05/20 07/06/20 07/06/20 18:59 06:59 18:59 Intake Total 960 Output Total 50 Balance -50 960 Intake: Oral 960 Output: Emesis 50 Other: Voiding Method Toilet # Voids 1 2 - Labs CBC & Chem 7: 07/02/20 19:32 07/06/20 07:48 Labs: Abnormal Lab Results - Last 24 Hours (Table) 07/06/20 Range/Units 07:48 Potassium 3.2 L (3.5-5.1) mmol/L Chloride 113 H (98-107) mmol/L BUN <2 L (7-17) mg/dL
[2020-07-06 14:34] VITALS: BP 138/82; PULSE 83
== END 2020-07-06 16:05 | disposition home or self-care (01) | DRG 392 ==
LOC: EC 18:12 → 1SOBS 19:30 → OBSVTOIN 07-04 15:41 → 1SOBS 07-05 22:43
PROVIDERS: ADMIT Family Medicine; ATTEND Family Medicine
DX: A08.4 Viral intestinal infection, unspecified (principal); E03.9 Hypothyroidism, unspecified; E66.01 Morbid (severe) obesity due to excess calories; E86.0 Dehydration; F31.9 Bipolar disorder, unspecified; F43.10 Post-traumatic stress disorder, unspecified; G43.909 Migraine, unspecified, not intractable, without status migrainosus; K21.9 Gastro-esophageal reflux disease without esophagitis; M79.7 Fibromyalgia; K74.60 Unspecified cirrhosis of liver; J45.909 Unspecified asthma, uncomplicated; K76.0 Fatty (change of) liver, not elsewhere classified; K31.84 Gastroparesis; E87.6 Hypokalemia; I44.0 Atrioventricular block, first degree; F40.00 Agoraphobia, unspecified; Z68.37 Body mass index [BMI] 37.0-37.9, adult; Z79.890 Hormone replacement therapy; Z79.899 Other long term (current) drug therapy; Z88.1 Allergy status to other antibiotic agents; Z91.040 Latex allergy status; Z91.013 Allergy to seafood; Z88.8 Allergy status to other drugs, medicaments and biological substances; Z91.018 Allergy to other foods; Z90.49 Acquired absence of other specified parts of digestive tract; Z90.89 Acquired absence of other organs; Z98.890 Other specified postprocedural states; Z98.84 Bariatric surgery status; Z91.19 Patient's noncompliance with other medical treatment and regimen; Z82.49 Family history of ischemic heart disease and other diseases of the circulatory system; Z83.79 Family history of other diseases of the digestive system; Z86.19 Personal history of other infectious and parasitic diseases; Z82.5 Family history of asthma and other chronic lower respiratory diseases
CPT/HCPCS: 36415; 70450; 74240; 80048; 80053; 80178; 81001; 82550; 83605; 83690; 83735; 84100; 84132; 84145; 84484; 84703; 85025; 85610; 85730; 87324; 93005; 96361; 96374; 96375; 99285

== ENCOUNTER 2020-07-25 18:19 | Observation (INO) | payer OTHER ==
[2020-07-25] MEDS ORDERED: ONDANSETRON 4 MG/2 ML VIAL IVP STA (20:06)
[2020-07-25] MEDS ORDERED: MORPHINE SULFATE 4 MG/ML SYRINGE IV STA (20:06)
[2020-07-25] MEDS ORDERED: SODIUM CHLORIDE 0.9% 1,000 ML IV STA (20:06)
--- NOTE | 2020-07-25 20:07 | ED ---
General Adult HPI - General Source: patient, RN notes reviewed, old records reviewed Mode of arrival: wheelchair Limitations: no limitations <Alejandro Tom - Last Filed: 07/25/20 20:54> <Alejandro Browne - Last Filed: 07/25/20 23:04> - General Chief complaint: Nausea/Vomiting/Diarrhea Stated complaint: dehydration/nausea Time Seen by Provider: 07/25/20 19:57 - History of Present Illness Initial comments: 25-year-old female presenting for evaluation of nausea vomiting. She's had these symptoms for many months, she states over the past several days she's had increased nausea vomiting and has had difficult time keeping her medication down. She also is complaining of right flank pain with a history of recurrent UTI. She has a known history ofliver disease which is nonalcoholic. She has previous history of gastric sleeve. (Alejandro Tom) - Related Data Home Medications Medication Instructions Recorded Confirmed Levothyroxine Sodium [Synthroid] 125 mcg PO QAM 01/06/17 07/25/20 Norgestimate-Ethinyl Estradiol 1 tab PO DAILY 02/04/18 07/25/20 [Sprintec 28 Day Tablet] DULoxetine HCL [Cymbalta] 60 mg PO BID 01/19/19 07/25/20 EPINEPHrine (Auto Inject) [Epipen] 0.3 mg IM DAILY PRN 01/19/19 07/25/20 Topiramate [Topiramate ER] 100 mg PO HS 04/26/20 07/25/20 [place] Carbonate 300 mg PO TID 04/30/20 07/25/20 Rizatriptan Benzoate [Rizatriptan] 10 mg PO DAILY PRN 04/30/20 07/25/20 Fluticasone Nasal [place] [Flonase 2 spr EA NOSTRIL DAILY PRN 05/16/20 07/25/20 Nasal [place]] Montelukast Sodium [Singulair] 5 mg PO HS 05/16/20 07/25/20 Ondansetron [Zofran] 4 mg PO TID PRN 05/16/20 07/25/20 Prochlorperazine [Compazine] 10 mg PO TID PRN 05/16/20 07/25/20 Omeprazole [PriLOSEC] 20 mg PO BID 06/12/20 07/25/20 Ergocalciferol [Vitamin D2 50,000 unit PO MO 07/02/20 07/25/20 (DRISDOL)] Allergies Allergy/AdvReac Type Severity Reaction Status Date / Time ceftriaxone [From Rocephin] Allergy Itching Verified 07/25/20 20:52 fentanyl Allergy Rash/Hives Verified 07/25/20 20:52 latex Allergy Rash/Hives Verified 07/25/20 20:52 metoclopramide [From Reglan] Allergy Unknown Verified 07/25/20 20:52 Penicillins Allergy Anaphylaxis Verified 07/25/20 20:52 ibuprofen [From Motrin] AdvReac GI Bleed Verified 07/25/20 20:52 prazosin AdvReac Nausea & Verified 07/25/20 20:52 Vomiting grape juice Allergy Anaphylaxis Uncoded 07/02/20 18:36 Seafood Allergy Anaphylaxis Uncoded 07/02/20 18:36 Review of Systems ROS Other: All systems not noted in ROS Statement are negative. <Alejandro Tom - Last Filed: 07/25/20 20:54> ROS Other: All systems not noted in ROS Statement are negative. <Alejandro Browne - Last Filed: 07/25/20 23:04> ROS Statement: Those systems with pertinent positive or pertinent negative responses have been documented in the HPI. Past Medical History Past Medical History: Asthma, Chest Pain / Angina, Fibromyalgia, GERD/Reflux, Liver Disease, Thyroid Disorder Additional Past Medical History / Comment(s): Cirrhosis of the liver (pt states these are partly due to her genetics and partly due to mental health medications she has been taking since age 4), Esophagitis. IBS. PART OF STOMACH NON- FUNCTIONING. BLOOD IN STOOL sometimes- last time one year ago, "fast heart beat" pt states that normal is around 100bpm, gastroporesis History of Any Multi-Drug Resistant Organisms: None Reported Past Surgical History: Appendectomy, Bariatric Surgery, Cholecystectomy, Tonsillectomy Additional Past Surgical History / Comment(s): NASAL Septum repair. COLONOSCOPY., gastric sleeve-04/26/2020 Past Anesthesia/Blood Transfusion Reactions: Motion Sickness Additional Past Anesthesia/Blood Transfusion Reaction / Comment(s): woke up once during surgery Past Psychological History: Anxiety, Depression, PTSD Smoking Status: Never smoker Past Alcohol Use History: None Reported Past Drug Use History: None Reported - Past Family History Father Family Medical History: Liver Disease Additional Family Medical History / Comment(s): at age 61 from COPD. ALso had cirrhosis,hepatitis C, pancreatitis, heart attacks (multiple) and esophagus disease <Alejandro Tom - Last Filed: 07/25/20 20:54> General Exam Limitations: no limitations General appearance: alert, in no apparent distress Head exam: Present: atraumatic, normocephalic Eye exam: Present: normal appearance, PERRL ENT exam: Present: mucous membranes dry Neck exam: Present: normal inspection. Absent: tenderness, meningismus Respiratory exam: Present: normal lung sounds bilaterally. Absent: respiratory distress, wheezes Cardiovascular Exam: Present: normal rhythm, tachycardia GI/Abdominal exam: Present: soft. Absent: distended, tenderness, guarding Extremities exam: Present: normal inspection, normal capillary refill. Absent: pedal edema Neurological exam: Present: alert, oriented X3, CN II-XII intact. Absent: motor sensory deficit Psychiatric exam: Present: normal affect, normal mood Skin exam: Present: warm, dry, intact. Absent: cyanosis, diaphoretic <Alejandro Tom - Last Filed: 07/25/20 20:54> Course <Alejandro Tom - Last Filed: 07/25/20 20:54> Vital Signs 07/25/20 18:34 Temperature 99.2 F Pulse Rate 125 H Respiratory 18 Rate Blood Pressure 123/86 O2 Sat by Pulse 98 Oximetry - Reevaluation(s) Reevaluation #1: 07/25/20 2100 patient care signed out at shift change to Dr. Browne awaiting lab testing and reevaluation (Alejandro Tom) Medical Decision Making - Lab Data Result diagrams: 07/25/20 22:14 07/25/20 22:14 <Alejandro Browne - Last Filed: 07/25/20 23:04> - Medical Decision Making The patient was endorsed me at our shift change pending laboratory work. Patient is persistent in her nausea and vomiting that. This is in spite of medications and extended of time. Patient will be admitted for intractable nausea vomiting and IV hydration. I did discuss the case with Dr. Goldberg. Additionally the urine is appear to be somewhat contaminated nitrate negative [place] a positive esterase. The patient is asymptomatic with respect to the urine at this time we will await cultures. (Alejandro Browne) - Lab Data Lab Results 07/25/20 07/25/20 07/25/20 Range/Units 22:14 22:14 22:14 WBC 16.6 H (3.8-10.6) k/uL RBC 5.36 (3.80-5.40) m/uL Hgb 14.7 (11.4-16.0) gm/dL Hct 45.1 (34.0-46.0) % MCV 84.2 (80.0-100.0) fL MCH 27.4 (25.0-35.0) pg MCHC 32.5 (31.0-37.0) g/dL RDW 15.1 (11.5-15.5) % Plt Count 296 (150-450) k/uL Neutrophils % 74 % Lymphocytes % 18 % Monocytes % 3 % Eosinophils % 3 % Basophils % 0 % Neutrophils # 12.3 H (1.3-7.7) k/uL Lymphocytes # 3.0 (1.0-4.8) k/uL Monocytes # 0.5 (0-1.0) k/uL Eosinophils # 0.5 (0-0.7) k/uL Basophils # 0.0 (0-0.2) k/uL Sodium 135 L (137-145) mmol/L Potassium 3.4 L (3.5-5.1) mmol/L Chloride 102 (98-107) mmol/L Carbon Dioxide 19 L (22-30) mmol/L Anion Gap 14 mmol/L BUN 8 (7-17) mg/dL Creatinine 0.83 (0.52-1.04) mg/dL Est GFR (CKD-EPI)AfAm >90 (>60 ml/min/1.73 sqM) Est GFR (CKD-EPI)NonAf >90 (>60 ml/min/1.73 sqM) Glucose 91 (74-99) mg/dL Plasma Lactic Acid Tree (0.7-2.0) mmol/L Calcium 10.5 H (8.4-10.2) mg/dL Magnesium 2.0 (1.6-2.3) mg/dL Total Bilirubin 0.6 (0.2-1.3) mg/dL AST 77 H (14-36) U/L ALT 90 H (4-34) U/L Alkaline Phosphatase 138 H (38-126) U/L Total Protein 7.2 (6.3-8.2) g/dL Albumin 3.9 (3.5-5.0) g/dL Lipase 142 (23-300) U/L Urine Color Yellow Urine Appearance Turbid H (Clear) Urine pH 6.0 (5.0-8.0) Ur Specific [place] 1.023 (1.001-1.035) Urine Protein 1+ H (Negative) Urine Glucose (UA) Negative (Negative) Urine Ketones 3+ H (Negative) Urine Blood Small H (Negative) Urine Nitrite Negative (Negative) Urine Bilirubin 1+ H (Negative) Urine Urobilinogen 4.0 (<2.0) mg/dL Ur Leukocyte Esterase Large H (Negative) Urine RBC 20 H (0-5) /hpf Urine WBC >182 H (0-5) /hpf Urine WBC Clumps Occasional H (None) /hpf Ur Squamous Epith Cells 35 H (0-4) /hpf Urine Bacteria Few H (None) /hpf Hyaline Casts 5 H (0-2) /lpf Urine Mucus Few H (None) /hpf 07/25/20 Range/Units 22:14 WBC (3.8-10.6) k/uL RBC (3.80-5.40) m/uL Hgb (11.4-16.0) gm/dL Hct (34.0-46.0) % MCV (80.0-100.0) fL MCH (25.0-35.0) pg MCHC (31.0-37.0) g/dL RDW (11.5-15.5) % Plt Count (150-450) k/uL Neutrophils % % Lymphocytes % % Monocytes % % Eosinophils % % Basophils % % Neutrophils # (1.3-7.7) k/uL Lymphocytes # (1.0-4.8) k/uL Monocytes # (0-1.0) k/uL Eosinophils # (0-0.7) k/uL Basophils # (0-0.2) k/uL Sodium (137-145) mmol/L Potassium (3.5-5.1) mmol/L Chloride (98-107) mmol/L Carbon Dioxide (22-30) mmol/L Anion Gap mmol/L BUN (7-17) mg/dL Creatinine (0.52-1.04) mg/dL Est GFR (CKD-EPI)AfAm (>60 ml/min/1.73 sqM) Est GFR (CKD-EPI)NonAf (>60 ml/min/1.73 sqM) Glucose (74-99) mg/dL Plasma Lactic Acid [place] 1.0 (0.7-2.0) mmol/L Calcium (8.4-10.2) mg/dL Magnesium (1.6-2.3) mg/dL Total Bilirubin (0.2-1.3) mg/dL AST (14-36) U/L ALT (4-34) U/L Alkaline Phosphatase (38-126) U/L Total Protein (6.3-8.2) g/dL Albumin (3.5-5.0) g/dL Lipase (23-300) U/L Urine Color Urine Appearance (Clear) Urine pH (5.0-8.0) Ur Specific [place] (1.001-1.035) Urine Protein (Negative) Urine Glucose (UA) (Negative) Urine Ketones (Negative) Urine Blood (Negative) Urine Nitrite (Negative) Urine Bilirubin (Negative) Urine Urobilinogen (<2.0) mg/dL Ur Leukocyte Esterase (Negative) Urine RBC (0-5) /hpf Urine WBC (0-5) /hpf Urine WBC Clumps (None) /hpf Ur Squamous Epith Cells (0-4) /hpf Urine Bacteria (None) /hpf Hyaline Casts (0-2) /lpf Urine Mucus (None) /hpf Disposition <Alejandro Tom - Last Filed: 07/25/20 20:54> <Alejandro Browne - Last Filed: 07/25/20 23:04> Clinical Impression: Intractable vomiting with nausea, Dehydration Disposition: ADMITTED IP TO THIS HOSP Condition: Fair Referrals: Marysol Rose DO [Primary Care Provider] - 1-2 days
[2020-07-25 22:42] LABS: Basophils % (A) 0 %; Eosinophils # (A) 0.5 k/uL (0-0.7); Eosinophils % (A) 3 %; HCT 45.1 % (34.0-46.0); HGB 14.7 gm/dL (11.4-16.0); Lymphocytes % (A) 18 %; MCH 27.4 pg (25.0-35.0); MCHC 32.5 g/dL (31.0-37.0); MCV 84.2 fL (80.0-100.0); Mean Platelet Volume 8.7; Monocytes # (A) 0.5 k/uL (0-1.0); Monocytes % (A) 3 %; Neutrophils # (A) 12.3 k/uL (1.3-7.7); Neutrophils % (A) 74 %; Platelet Count 296 k/uL (150-450); RBC 5.36 m/uL (3.80-5.40); RDW 15.1 % (11.5-15.5); WBC 16.6 k/uL (3.8-10.6)
[2020-07-25 22:52] LABS: ALT 90 U/L (4-34); AST 77 U/L (14-36); African American GFR (CKD) >90 (>60 ml/min/1.73 sqM); Albumin 3.9 g/dL (3.5-5.0); Alkaline Phosphatase 138 U/L (38-126); Anion Gap 14 mmol/L; Blood Urea Nitrogen 8 mg/dL (7-17); Calcium 10.5 mg/dL (8.4-10.2); Carbon Dioxide 19 mmol/L (22-30); Chloride 102 mmol/L (98-107); Glucose 91 mg/dL (74-99); Lipase 142 U/L (23-300); Non-African American GFR(CKD) >90 (>60 ml/min/1.73 sqM); Potassium 3.4 mmol/L (3.5-5.1); Sodium 135 mmol/L (137-145); Total Bilirubin 0.6 mg/dL (0.2-1.3); Total Protein 7.2 g/dL (6.3-8.2)
[2020-07-25 22:54] LABS: Appearance,Urine Turbid (Clear); Bacteria,Urine Few /hpf; Bilirubin,Urine 1+ (Negative); Blood,Urine Small (Negative); Color,Urine Yellow; Glucose,Urine (UA) Negative (Negative); Hyaline Casts,Urine 5 /lpf (0-2); Ketones,Urine 3+ (Negative); Leukocyte Esterase,Urine Large (Negative); Mucus,Urine Few /hpf; Nitrite,Urine Negative (Negative); Protein,Urine 1+ (Negative); RBC,Urine 20 /hpf (0-5); Specific Gravity,Urine 1.023 (1.001-1.035); Squamous Epithelial Cell,Urine 35 /hpf (0-4); WBC,Urine >182 /hpf (0-5)
[2020-07-25] MEDS ORDERED: NALOXONE 0.4 MG/ML 1 ML VIAL IV PRN (23:04)
[2020-07-25] MEDS ORDERED: ONDANSETRON 4 MG TAB PO PRN (23:07)
[2020-07-25] MEDS ORDERED: PROCHLORPERAZINE 10 MG TAB PO PRN (23:15)
[2020-07-26] MEDS: 0.9% NACL WITH KCL 20 MEQ/L 1,000 ML IV SCH ×4 (00:06→22:24)
[2020-07-26] MEDS: HYDROmorphone 0.5 MG/0.5 ML SYRINGE IVP PRN ×3 (01:42→19:39)
[2020-07-26] MEDS: LEVOTHYROXINE 125 MCG TAB PO SCH (05:54)
[2020-07-26] MEDS ORDERED: SUMAtriptan succinate 50 MG TAB PO PRN (09:00)
[2020-07-26] MEDS ORDERED: FLUTICASONE 50MCG/SPRAY NASAL 16GM EA NOSTRIL PRN (09:00)
[2020-07-26] MEDS: PANTOPRAZOLE 40 MG TABLET PO SCH ×2 (09:14→21:16)
[2020-07-26] MEDS: TOPIRAMATE 25 MG TAB PO SCH ×2 (09:14→21:16)
[2020-07-26] MEDS: LITHIUM CARBONATE 300 MG CAP PO SCH ×3 (09:14→21:16)
[2020-07-26] MEDS: DULoxetine HCL 60 MG CAPSULE.DR PO SCH ×2 (09:14→21:16)
[2020-07-26] MEDS: ONDANSETRON 4 MG/2 ML VIAL IVP PRN ×2 (09:16→19:40)
[2020-07-26] MEDS: norgestimate-ethinyl estradioL 1 EACH TABLET PO SCH (09:16)
[2020-07-26] MEDS ORDERED: Potassium Replacement Protocol 1 EACH MISC MISCELLANE PRN ×2 (10:32→10:37)
[2020-07-26] MEDS: POTASSIUM CHLORIDE ER 20 MEQ TAB.ER PO SCH ×2 (10:50→12:12)
[2020-07-26] MEDS ORDERED: MONTELUKAST 5 MG CHEWABLE PO SCH (21:00)
--- NOTE | 2020-07-26 22:46 | P.HPIM ---
History of Present Illness H&P Date: 07/26/20 Chief Complaint: nausea, vomiting Chana Alamo is a 25 yo F with PMH of morbid obesity s/p recent sleeve gastrectomy, bipolar disorder, migraine who presented to the ED complaining of intractable nausea and vomiting. She has been in the hospital multiple times recently with the same complains since her recent sleeve procedure, most recently discharged approx 3 weeks ago. She states she ran out of zofran and when she went to the pharmacy they would not fill her refill as it was too early. She repetitively vomited over the past 2-3 days and developed abdominal pain so came in. On presentation she was tachycardic, WBC 16k, UA with positive ketones. Review of Systems All systems: negative Constitutional: Denies chills, Denies fever Eyes: denies blurred vision, denies pain Ears, nose, mouth and throat: Denies headache, Denies sore throat Cardiovascular: Denies chest pain, Denies shortness of breath Respiratory: Denies cough Gastrointestinal: Reports abdominal pain, Reports loss of appetite, Reports nausea, Reports vomiting, Denies diarrhea Genitourinary: Denies dysuria, Denies hematuria Musculoskeletal: Denies myalgias Integumentary: Denies pruritus, Denies rash Neurological: Denies numbness, Denies weakness Psychiatric: Denies anxiety, Denies depression Endocrine: Denies fatigue, Denies weight change Past Medical History Past Medical History: Asthma, Chest Pain / Angina, Fibromyalgia, GERD/Reflux, Liver Disease, Thyroid Disorder Additional Past Medical History / Comment(s): Cirrhosis of the liver (pt states these are partly due to her genetics and partly due to mental health medications she has been taking since age 4), Esophagitis. IBS. PART OF STOMACH NON- FUNCTIONING. BLOOD IN STOOL sometimes- last time one year ago, "fast heart beat" pt states that normal is around 100bpm, gastroporesis History of Any Multi-Drug Resistant Organisms: None Reported Past Surgical History: Appendectomy, Bariatric Surgery, Cholecystectomy, Tonsillectomy Additional Past Surgical History / Comment(s): NASAL Septum repair. COLONOSCOPY., gastric sleeve-04/26/2020 Past Anesthesia/Blood Transfusion Reactions: Motion Sickness Additional Past Anesthesia/Blood Transfusion Reaction / Comment(s): woke up once during surgery Past Psychological History: Anxiety, Depression, PTSD Additional Psychological History / Comment(s): 04/20/19: Takes [place] and Cymbalta daily, agoraphobia Smoking Status: Never smoker Past Alcohol Use History: None Reported Past Drug Use History: None Reported - Past Family History Father Family Medical History: Liver Disease Additional Family Medical History / Comment(s): at age 61 from COPD. ALso had cirrhosis,hepatitis C, pancreatitis, heart attacks (multiple) and esophagus disease Medications and Allergies Home Medications Medication Instructions Recorded Confirmed Type Levothyroxine Sodium [Synthroid] 125 mcg PO QAM 01/06/17 07/25/20 History Norgestimate-Ethinyl Estradiol 1 tab PO DAILY 02/04/18 07/25/20 History [Sprintec 28 Day Tablet] DULoxetine HCL [Cymbalta] 60 mg PO BID 01/19/19 07/25/20 History EPINEPHrine (Auto Inject) [Epipen] 0.3 mg IM DAILY PRN 01/19/19 07/25/20 History Topiramate [Topiramate ER] 100 mg PO HS 04/26/20 07/25/20 History [place] Carbonate 300 mg PO TID 04/30/20 07/25/20 History Rizatriptan Benzoate [Rizatriptan] 10 mg PO DAILY PRN 04/30/20 07/25/20 History Fluticasone Nasal [place] [Flonase 2 spr EA NOSTRIL DAILY PRN 05/16/20 07/25/20 History Nasal [place]] Montelukast Sodium [Singulair] 5 mg PO HS 05/16/20 07/25/20 History Ondansetron [Zofran] 4 mg PO TID PRN 05/16/20 07/25/20 History Prochlorperazine [Compazine] 10 mg PO TID PRN 05/16/20 07/25/20 History Omeprazole [PriLOSEC] 20 mg PO BID 06/12/20 07/25/20 History Ergocalciferol [Vitamin D2 50,000 unit PO MO 07/02/20 07/25/20 History (DRISDOL)] Allergies Allergy/AdvReac Type Severity Reaction Status Date / Time ceftriaxone [From Rocephin] Allergy Itching Verified 07/25/20 20:52 fentanyl Allergy Rash/Hives Verified 07/25/20 20:52 latex Allergy Rash/Hives Verified 07/25/20 20:52 metoclopramide [From Reglan] Allergy Unknown Verified 07/25/20 20:52 Penicillins Allergy Anaphylaxis Verified 07/25/20 20:52 ibuprofen [From Motrin] AdvReac GI Bleed Verified 07/25/20 20:52 prazosin AdvReac Nausea & Verified 07/25/20 20:52 Vomiting grape juice Allergy Anaphylaxis Uncoded 07/02/20 18:36 Seafood Allergy Anaphylaxis Uncoded 07/02/20 18:36 Physical Exam Vitals: Vital Signs Temp Pulse Pulse Resp BP BP Pulse Ox 07/26/20 21:00 97.8 F 96 18 112/83 97 07/26/20 15:00 97.6 F 99 16 117/83 99 07/26/20 08:49 98.1 F 102 H 16 109/76 98 07/26/20 02:21 97.9 F 104 H 18 114/78 96 07/26/20 02:18 16 07/26/20 00:22 98.5 F 109 H 16 114/82 96 07/26/20 00:06 98.8 F 74 20 122/72 97 07/25/20 23:26 98.8 F 106 H 18 132/84 98 Intake and Output 07/26/20 07/26/20 07/26/20 06:59 14:59 22:59 Intake Total 460 400 Balance 460 400 Intake: Intake, IV Titration 260 Amount 0.9% NaCl with KCl 20 Meq 260 /l 1,000 ml @ 130 mls/hr IV .Q7H42M [facility] Rx#: [id number] Oral 200 400 Other: Voiding Method Toilet Toilet Toilet # Voids 1 1 3 Weight 81.647 kg General: well nourished, well developed, NAD. Morbidly obese. Vitals reviewed Eyes: PERRL, EOMI, conjunctiva normal HENT: normocephalic, mucus membranes moist Neck: supple, no JVD Lungs: normal respiratory effort, no wheezes or rales CV: Regular rate and rhythm, no murmur. Peripheral pulses 2+ Abdomen: soft, nondistended, no organomegaly. Generalized tenderness Lymph: no cervical or axillary LAD Skin: warm and dry. Neuro: A&Ox3, normal mood and affect Results CBC & Chem 7: 07/25/20 22:14 07/26/20 09:04 Labs: Abnormal Lab Results - Last 24 Hours (Table) 07/25/20 07/25/20 07/25/20 Range/Units 22:14 22:14 22:14 WBC 16.6 H (3.8-10.6) k/uL Neutrophils # 12.3 H (1.3-7.7) k/uL Sodium 135 L (137-145) mmol/L Potassium 3.4 L (3.5-5.1) mmol/L Carbon Dioxide 19 L (22-30) mmol/L Calcium 10.5 H (8.4-10.2) mg/dL AST 77 H (14-36) U/L ALT 90 H (4-34) U/L Alkaline Phosphatase 138 H (38-126) U/L Urine Appearance Turbid H (Clear) Urine Protein 1+ H (Negative) Urine Ketones 3+ H (Negative) Urine Blood Small H (Negative) Urine Bilirubin 1+ H (Negative) Ur Leukocyte Esterase Large H (Negative) Urine RBC 20 H (0-5) /hpf Urine WBC >182 H (0-5) /hpf Urine WBC Clumps Occasional H (None) /hpf Ur Squamous Epith Cells 35 H (0-4) /hpf Urine Bacteria Few H (None) /hpf Hyaline Casts 5 H (0-2) /lpf Urine Mucus Few H (None) /hpf 07/26/20 Range/Units 09:04 WBC (3.8-10.6) k/uL Neutrophils # (1.3-7.7) k/uL Sodium (137-145) mmol/L Potassium 3.0 L (3.5-5.1) mmol/L Carbon Dioxide (22-30) mmol/L Calcium (8.4-10.2) mg/dL AST (14-36) U/L ALT (4-34) U/L Alkaline Phosphatase (38-126) U/L Urine Appearance (Clear) Urine Protein (Negative) Urine Ketones (Negative) Urine Blood (Negative) Urine Bilirubin (Negative) Ur Leukocyte Esterase (Negative) Urine RBC (0-5) /hpf Urine WBC (0-5) /hpf Urine WBC Clumps (None) /hpf Ur Squamous Epith Cells (0-4) /hpf Urine Bacteria (None) /hpf Hyaline Casts (0-2) /lpf Urine Mucus (None) /hpf Microbiology - Last 24 Hours (Table) 07/25/20 22:14 Urine Culture - Preliminary Urine,Voided Assessment and Plan (1) Intractable nausea and vomiting Current Visit: Yes Status: Acute Code(s): R11.2 - NAUSEA WITH VOMITING, UNSPECIFIED SNOMED Code(s): 914858645 (2) Abdominal pain Current Visit: No Status: Acute Code(s): R10.9 - UNSPECIFIED ABDOMINAL PAIN SNOMED Code(s): 89986291 (3) Bipolar disorder Current Visit: No Status: Acute Code(s): F31.9 - BIPOLAR DISORDER, UNSPECIFIED SNOMED Code(s): 09653240 (4) Chronic nonalcoholic liver disease Current Visit: No Status: Acute Code(s): K76.9 - LIVER DISEASE, UNSPECIFIED SNOMED Code(s): 68828669 Plan: 1. Intractable nausea and vomiting. Secondary to sleeve gastrectomy vs medica tion side effect. IV fluids, zofran and compazine prn 2. Bipolar disorder. Continue lithium 3. Migraine. Continue topamax. Imitrex prn
[2020-07-27] MEDS: ONDANSETRON 4 MG/2 ML VIAL IVP PRN (03:42)
[2020-07-27] MEDS: HYDROmorphone 0.5 MG/0.5 ML SYRINGE IVP PRN ×2 (03:42→10:10)
[2020-07-27] MEDS: LEVOTHYROXINE 125 MCG TAB PO SCH (05:34)
[2020-07-27] MEDS: 0.9% NACL WITH KCL 20 MEQ/L 1,000 ML IV SCH (05:34)
[2020-07-27 08:41] VITALS: BP 109/77; PULSE 95; RESP 18; TEMP 97.4
[2020-07-27] MEDS: LITHIUM CARBONATE 300 MG CAP PO SCH (08:51)
[2020-07-27] MEDS: PANTOPRAZOLE 40 MG TABLET PO SCH (08:51)
[2020-07-27] MEDS: DULoxetine HCL 60 MG CAPSULE.DR PO SCH (08:51)
[2020-07-27] MEDS: norgestimate-ethinyl estradioL 1 EACH TABLET PO SCH (08:53)
[2020-07-27] MEDS: TOPIRAMATE 25 MG TAB PO SCH (08:53)
--- NOTE | 2020-07-27 09:11 | P.DS ---
Providers Date of admission: 07/25/20 23:04 Expected date of discharge: 07/27/20 Attending physician: Lon Goldberg MD Primary care physician: Marysol Rose [place] Hospital Course: Final Diagnoses: (1) Intractable nausea and vomiting , secondary to sleeve gastrectomy, possible medication side effects, possible noncompliance with bariatric diet Current Visit: Yes Status: Acute Code(s): R11.2 - NAUSEA WITH VOMITING, UNSPECIFIED SNOMED Code(s): 077407476 (2) Abdominal pain Current Visit: No Status: Acute Code(s): R10.9 - UNSPECIFIED ABDOMINAL PAIN SNOMED Code(s): 77330412 (3) Bipolar disorder Current Visit: No Status: Acute Code(s): F31.9 - BIPOLAR DISORDER, UNSPECIFIED SNOMED Code(s): 81038035 (4) Chronic nonalcoholic liver disease Current Visit: No Status: Acute Code(s): K76.9 - LIVER DISEASE, UNSPECIFIED SNOMED Code(s): 12980698 Hospital course:Chana Alamo is a 25 yo F with PMH of morbid obesity s/p recent sleeve gastrectomy, bipolar disorder, migraine who presented to the ED complaining of intractable nausea and vomiting. She has been in the hospital multiple times recently with the same complains since her recent sleeve proce dure, most recently discharged approx 3 weeks ago. She states she ran out of zofran and when she went to the pharmacy they would not fill her refill as it was too early. She repetitively vomited over the past 2-3 days and developed abdominal pain so came in. On presentation she was tachycardic, WBC 16k, UA with positive ketones. Maintained on gentle IV fluid hydration, antiemetics, Topamax. Diet advanced. Significant clinical improvement. As Topamax can affect appetite, patient has been advised to decrease to 50 mg daily at bedtime, along with 5-6 small meals/compliancy with bariatric diet. Patient will be discharged home today in a stable condition with guarded prognosis. The impression and plan of care has been dictated as directed. : I performed a history and examination of this patient, discussed the same with the dictator. I agree with the dictator's note ,documented as a scribe. Any additional findings or plans will be noted. Patient Condition at Discharge: Stable Plan - Discharge Summary New Discharge Prescriptions: New Pantoprazole [Protonix] 40 mg PO BID #60 tablet.dr Topiramate [Topamax] 50 mg PO HS tab Continue Levothyroxine Sodium [Synthroid] 125 mcg PO QAM Norgestimate-Ethinyl Estradiol [Sprintec 28 Day Tablet] 1 tab PO DAILY DULoxetine HCL [Cymbalta] 60 mg PO BID EPINEPHrine (Auto Inject) [Epipen] 0.3 mg IM DAILY PRN PRN Reason: Allergic Reaction [place] Carbonate 300 mg PO TID Rizatriptan Benzoate [Rizatriptan] 10 mg PO DAILY PRN PRN Reason: Migraine Headache Prochlorperazine [Compazine] 10 mg PO TID PRN PRN Reason: Nausea Montelukast Sodium [Singulair] 5 mg PO HS Fluticasone Nasal [place] [Flonase Nasal [place]] 2 spr EA NOSTRIL DAILY PRN PRN Reason: Allergy Symptoms Ergocalciferol [Vitamin D2 (DRISDOL)] 50,000 unit PO MO Ondansetron [Zofran] 4 mg PO TID PRN #30 tab PRN Reason: Nausea Discontinued Topiramate [Topiramate ER] 100 mg PO HS Omeprazole [PriLOSEC] 20 mg PO BID Discharge Medication List Levothyroxine Sodium [Synthroid] 125 mcg PO QAM 01/06/17 [History] Norgestimate-Ethinyl Estradiol [Sprintec 28 Day Tablet] 1 tab PO DAILY 02/04/18 [History] DULoxetine HCL [Cymbalta] 60 mg PO BID 01/19/19 [History] EPINEPHrine (Auto Inject) [Epipen] 0.3 mg IM DAILY PRN 01/19/19 [History] [place] Carbonate 300 mg PO TID 04/30/20 [History] Rizatriptan Benzoate [Rizatriptan] 10 mg PO DAILY PRN 04/30/20 [History] Fluticasone Nasal [place] [Flonase Nasal [place]] 2 spr EA NOSTRIL DAILY PRN 05/16/20 [History] Montelukast Sodium [Singulair] 5 mg PO HS 05/16/20 [History] Prochlorperazine [Compazine] 10 mg PO TID PRN 05/16/20 [History] Ergocalciferol [Vitamin D2 (DRISDOL)] 50,000 unit PO MO 07/02/20 [History] Ondansetron [Zofran] 4 mg PO TID PRN #30 tab 07/27/20 [Rx] Pantoprazole [Protonix] 40 mg PO BID #60 tablet. 07/27/20 [Rx] Topiramate [Topamax] 50 mg PO HS tab 07/27/20 [Rx] Follow up Appointment(s)/Referral(s): Marysol Rose DO [Primary Care Provider] - 08/01/20 9:00 am (Follow up with Dr Lon Goldberg on this date. Appointment with Dr Rose will be on the . )
[2020-08-01] MEDS ORDERED: ERGOCALCIFEROL 50,000 UNIT CAP PO SCH (09:00)
== END 2020-07-27 15:09 ==
LOC: EC 18:19 → 3NCARDOBS 23:04
PROVIDERS: ADMIT Family Medicine; ATTEND Family Medicine
DX: R11.2 Nausea with vomiting, unspecified (principal); E86.0 Dehydration; R10.9 Unspecified abdominal pain; F31.9 Bipolar disorder, unspecified; K74.60 Unspecified cirrhosis of liver; J45.909 Unspecified asthma, uncomplicated; M79.7 Fibromyalgia; K21.9 Gastro-esophageal reflux disease without esophagitis; K58.9 Irritable bowel syndrome, unspecified; G43.909 Migraine, unspecified, not intractable, without status migrainosus; R00.0 Tachycardia, unspecified; F40.00 Agoraphobia, unspecified; F43.10 Post-traumatic stress disorder, unspecified; F41.9 Anxiety disorder, unspecified; Z87.440 Personal history of urinary (tract) infections; Z98.84 Bariatric surgery status; Z79.890 Hormone replacement therapy; Z79.899 Other long term (current) drug therapy; Z88.1 Allergy status to other antibiotic agents; Z91.040 Latex allergy status; Z88.5 Allergy status to narcotic agent; Z88.0 Allergy status to penicillin; Z91.013 Allergy to seafood; Z88.8 Allergy status to other drugs, medicaments and biological substances; Z91.018 Allergy to other foods; Z87.19 Personal history of other diseases of the digestive system; Z90.49 Acquired absence of other specified parts of digestive tract; E66.01 Morbid (severe) obesity due to excess calories; Z68.34 Body mass index [BMI] 34.0-34.9, adult; Z82.5 Family history of asthma and other chronic lower respiratory diseases; Z82.49 Family history of ischemic heart disease and other diseases of the circulatory system; Z84.89 Family history of other specified conditions
CPT/HCPCS: 96365; 96366; 96376 ×2; 96361; 96375; 99285; 36415; 80053; 83605; 83690; 83735; 84132 ×2; 85025; 81001; 87040; 87086; G0378 ×3; J2270; J2405 ×3; J1170 ×2

== ENCOUNTER → 2020-08-22 | Outpatient (CLI) | payer OTHER ==
[2020-08-22 14:05] VITALS: BP 110/75; PULSE 125; TEMP 97.5
[2020-08-22 14:49] LABS: HCT 45.1 % (34.0-46.0); HGB 14.8 gm/dL (11.4-16.0); MCH 28.4 pg (25.0-35.0); MCHC 32.9 g/dL (31.0-37.0); MCV 86.5 fL (80.0-100.0); Platelet Count 324 k/uL (150-450); RBC 5.21 m/uL (3.80-5.40); WBC 12.6 k/uL (3.8-10.6)
[2020-08-22 19:09] LABS: African American GFR (CKD) 138.6 (60.0-200.0); Albumin 4.2 g/dL (3.80-4.90); Albumin/Globulin Ratio 1.68 (1.60-3.17); Anion Gap 8.5 mmol/L (4.00-12.00); BUN/Creat Ratio 8.57 Ratio (12.00-20.00); Calcium 10.7 mg/dL (8.7-10.3); Carbon Dioxide 26.5 mmol/L (21.6-31.8); Globulin 2.5 g/dL (1.6-3.3); Non-African American GFR(CKD) 119.6 (60.0-200.0); Potassium 4.2 mmol/L (3.5-5.5); Total Bilirubin 0.3 mg/dL (0.2-1.2); Total Protein 6.7 g/dL (6.2-8.2)
[2020-08-22 19:21] LABS: Folate, Serum 23.2 ng/mL
--- NOTE | 2020-09-27 11:39 | P.HPBAR ---
Bariatric H&P - History & Physicial H&P Date: 08/22/20 History & Physicial: Visit/CC: three month follow up Patient initial contact: Initial weight: 113.307 kg Initial weight in pounds: 249.80 Height: 5 ft 1 in Initial BMI: 47.2 Last weight: Current weight: 72.121 kg Current weight in pounds: 159.00 Current BMI: 30.0 [place] body weight (based on NIH guidelines): 47.627 kg Excess body weight loss: 62.7% The patient is a 25 year-old F who presents for Bariatric Assessment. Patient rents today for sleeve gastric a fall. She is doing quite well. She's had some mild GERD. Her BMI is improving. Her BMI is 30 Past Medical History Past Medical History: Asthma, Chest Pain / Angina, Fibromyalgia, GERD/Reflux, Liver Disease, Thyroid Disorder Additional Past Medical History / Comment(s): Cirrhosis of the liver (pt states these are partly due to her genetics and partly due to mental health medications she has been taking since age 4), Esophagitis. IBS. PART OF STOMACH NON- FUNCTIONING. BLOOD IN STOOL sometimes- last time one year ago, "fast heart beat" pt states that normal is around 100bpm, gastroporesis History of Any Multi-Drug Resistant Organisms: None Reported Past Surgical History: Appendectomy, Bariatric Surgery, Cholecystectomy, Tonsillectomy Additional Past Surgical History / Comment(s): NASAL Septum repair. COLONOSCOP Y., gastric sleeve-04/26/2020 Past Anesthesia/Blood Transfusion Reactions: Motion Sickness Additional Past Anesthesia/Blood Transfusion Reaction / Comm: woke up once during surgery Past Psychological History: Anxiety, Depression, PTSD Additional Psychological History / Comment(s): 04/20/19: Takes [place] and Cymbalta daily, agoraphobia Smoking Status: Never smoker Past Alcohol Use History: None Reported Past Drug Use History: None Reported - Past Family History Father Family Medical History: Liver Disease Additional Family Medical History / Comment(s): at age 61 from COPD. ALso had cirrhosis,hepatitis C, pancreatitis, heart attacks (multiple) and esophagus disease Surgical - Exam Vital Signs Temp Pulse BP 97.5 F L 125 H 110/75 08/22/20 13:00 08/22/20 13:00 08/22/20 13:00 - General well developed, well nourished, no distress - Eyes PERRL - ENT normal pinna - Neck no masses - Respiratory normal expansion - Cardiovascular Rhythm: regular - Abdomen Abdomen: soft, non tender Results - Labs 08/22/20 14:25 08/22/20 14:25 Bariatric Assessment & Plan Plan: Improving lumbar obesity. Patient's girth is minimal 1. She'll follow-up in 4 weeks. Bariatric Checklist Checklist: Plan: Checklist: EGD: 1. Hiatal hernia: 2. H. Pylori: HgbA1c: Vitamin D: Smoking: Never smoker Primary care physician referral: Marysol Rose Do Psychiatry clearance: Cardiology clearance: Sleep study: Diet journal: VTE risk score: VTE risk level: Rehab needs at discharge:
== END | disposition home or self-care (01) ==
LOC: BARWHC3 13:17
PROVIDERS: ATTEND Surgery
DX: Z48.815 Encounter for surgical aftercare following surgery on the digestive system (principal); Z90.49 Acquired absence of other specified parts of digestive tract; Z98.84 Bariatric surgery status; Z98.890 Other specified postprocedural states
CPT/HCPCS: 84425; 80053; 82607; 82746; 84443; 85027; 82306; 97803; G0463; 99211

== ENCOUNTER 2020-08-27 21:30 | Emergency (ER) | payer OTHER ==
[2020-08-27 21:37] VITALS: RESP 18; TEMP 98.5
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
[2020-08-27] MEDS ORDERED: LORazepam 2 MG/ML INJ IV STA (22:53)
[2020-08-27] MEDS ORDERED: LORazepam 1 MG TAB PO STA (23:05)
[2020-08-27 23:16] LABS: Basophils % (A) 0 %; Eosinophils # (A) 0.4 k/uL (0-0.7); Eosinophils % (A) 5 %; HCT 39.4 % (34.0-46.0); Lymphocytes # (A) 2.9 k/uL (1.0-4.8); Lymphocytes % (A) 33 %; MCH 28.2 pg (25.0-35.0); MCHC 33.1 g/dL (31.0-37.0); MCV 85.1 fL (80.0-100.0); Mean Platelet Volume 7.8; Monocytes # (A) 0.4 k/uL (0-1.0); Monocytes % (A) 5 %; Neutrophils # (A) 4.7 k/uL (1.3-7.7); Neutrophils % (A) 55 %; Platelet Count 268 k/uL (150-450); RBC 4.63 m/uL (3.80-5.40); RDW 13.7 % (11.5-15.5); WBC 8.6 k/uL (3.8-10.6)
[2020-08-27 23:20] LABS: Appearance,Urine Clear (Clear); Bilirubin,Urine Negative (Negative); Blood,Urine Negative (Negative); Color,Urine Yellow; Glucose,Urine (UA) Negative (Negative); Hyaline Casts,Urine 14 /lpf (0-2); Ketones,Urine Negative (Negative); Leukocyte Esterase,Urine Moderate (Negative); Mucus,Urine Rare /hpf; Nitrite,Urine Negative (Negative); Protein,Urine Negative (Negative); RBC,Urine 1 /hpf (0-5); Specific Gravity,Urine 1.007 (1.001-1.035); Squamous Epithelial Cell,Urine 4 /hpf (0-4); Urobilinogen,Urine <2.0 mg/dL (<2.0); WBC,Urine 30 /hpf (0-5)
[2020-08-27 23:33] LABS: ALT 35 U/L (4-34); AST 42 U/L (14-36); Acetaminophen <10.0 ug/mL; African American GFR (CKD) >90 (>60 ml/min/1.73 sqM); Albumin 3.2 g/dL (3.5-5.0); Alkaline Phosphatase 108 U/L (38-126); Anion Gap 4 mmol/L; Blood Urea Nitrogen 2 mg/dL (7-17); Carbon Dioxide 26 mmol/L (22-30); Chloride 112 mmol/L (98-107); Glucose 97 mg/dL (74-99); Non-African American GFR(CKD) >90 (>60 ml/min/1.73 sqM); Potassium 3.9 mmol/L (3.5-5.1); Salicylate <1.0 mg/dL; Sodium 142 mmol/L (137-145); Total Bilirubin 0.4 mg/dL (0.2-1.3); Total Protein 6.1 g/dL (6.3-8.2)
[2020-08-27 23:47] LABS: Lithium 0.6 mmol/L
[2020-08-28] VITALS: BP 128/99; PULSE 88
== END 2020-08-28 | disposition home or self-care (01) ==
LOC: EC 21:30
DX: F41.9 Anxiety disorder, unspecified (principal); J45.909 Unspecified asthma, uncomplicated; E07.9 Disorder of thyroid, unspecified; M79.7 Fibromyalgia; F32.9 Major depressive disorder, single episode, unspecified; Z79.899 Other long term (current) drug therapy; Z79.890 Hormone replacement therapy; Z79.3 Long term (current) use of hormonal contraceptives; Z88.1 Allergy status to other antibiotic agents; Z88.6 Allergy status to analgesic agent; Z88.0 Allergy status to penicillin; Z91.040 Latex allergy status; Z91.013 Allergy to seafood; Z91.018 Allergy to other foods; Z88.5 Allergy status to narcotic agent; Z88.8 Allergy status to other drugs, medicaments and biological substances
CPT/HCPCS: 36415; 80053; 80178; 85025; 81001; 83520; 99284; G0480; 80329

== ENCOUNTER 2020-11-01 16:57 | Emergency (ER) | payer OTHER ==
[2020-11-01] MEDS ORDERED: ONDANSETRON 4 MG/2 ML VIAL IVP STA (17:17)
[2020-11-01] MEDS ORDERED: MORPHINE SULFATE 4 MG/ML SYRINGE IV STA (17:17)
[2020-11-01] MEDS ORDERED: PANTOPRAZOLE 40 MG/10 ML VIAL IVP STA (17:17)
[2020-11-01] MEDS ORDERED: SODIUM CHLORIDE 0.9% 1,000 ML IV STA (17:17)
--- NOTE | 2020-11-01 17:24 | ED ---
General Adult HPI - General Chief complaint: Abdominal Pain Stated complaint: abd pain Time Seen by Provider: 11/01/20 17:10 Source: patient, RN notes reviewed, old records reviewed Mode of arrival: ambulatory Limitations: no limitations - History of Present Illness Initial comments: 25-year-old female presenting for evaluation nausea vomiting and epigastric pain. Patient has had multiple episodes similar to today's episode in the past. She states that she's been vomiting for approximately one week. She has a previous history of nonalcoholic fatty liver, bariatric surgery, recurrent episodes of nausea and vomiting. She states this episode is very similar to previous episodes. She denies any change in her bowel movements. She reports only epigastric and right upper quadrant abdominal pain. She has a previous history of cholecystectomy and appendectomy. - Related Data Home Medications Medication Instructions Recorded Confirmed Levothyroxine Sodium [Synthroid] 125 mcg PO QAM 01/06/17 08/22/20 Norgestimate-Ethinyl Estradiol 1 tab PO DAILY 02/04/18 08/22/20 [Sprintec 28 Day Tablet] DULoxetine HCL [Cymbalta] 60 mg PO BID 01/19/19 08/22/20 EPINEPHrine (Auto Inject) [Epipen] 0.3 mg IM DAILY PRN 01/19/19 08/22/20 [place] Carbonate 300 mg PO TID 04/30/20 08/22/20 Rizatriptan Benzoate [Rizatriptan] 10 mg PO DAILY PRN 04/30/20 08/22/20 Fluticasone Nasal [place] [Flonase 2 spr EA NOSTRIL DAILY PRN 05/16/20 08/22/20 Nasal [place]] Montelukast Sodium [Singulair] 5 mg PO HS 05/16/20 08/22/20 Prochlorperazine [Compazine] 10 mg PO TID PRN 05/16/20 08/22/20 Ergocalciferol [Vitamin D2 50,000 unit PO MO 07/02/20 08/22/20 (DRISDOL)] Previous Rx's Medication Instructions Recorded Ondansetron [Zofran] 4 mg PO TID PRN #30 tab 07/27/20 Pantoprazole [Protonix] 40 mg PO BID #60 tablet. 07/27/20 Topiramate [Topamax] 50 mg PO HS tab 07/27/20 LORazepam [Ativan] 1 mg PO HS 3 Days #3 tab 08/27/20 Allergies Allergy/AdvReac Type Severity Reaction Status Date / Time ceftriaxone [From Rocephin] Allergy Itching Verified 11/01/20 17:05 fentanyl Allergy Rash/Hives Verified 11/01/20 17:05 latex Allergy Rash/Hives Verified 11/01/20 17:05 metoclopramide [From Reglan] Allergy Unknown Verified 11/01/20 17:05 Penicillins Allergy Anaphylaxis Verified 11/01/20 17:05 ibuprofen [From Motrin] AdvReac GI Bleed Verified 11/01/20 17:05 prazosin AdvReac Nausea & Verified 11/01/20 17:05 Vomiting grape juice Allergy Anaphylaxis Uncoded 11/01/20 17:05 Seafood Allergy Anaphylaxis Uncoded 11/01/20 17:05 Review of Systems ROS Statement: Those systems with pertinent positive or pertinent negative responses have been documented in the HPI. ROS Other: All systems not noted in ROS Statement are negative. Past Medical History Past Medical History: Asthma, Chest Pain / Angina, Fibromyalgia, GERD/Reflux, Liver Disease, Thyroid Disorder Additional Past Medical History / Comment(s): Cirrhosis of the liver (pt states these are partly due to her genetics and partly due to mental health medications she has been taking since age 4), Esophagitis. IBS. PART OF STOMACH NON- FUNCTIONING. BLOOD IN STOOL sometimes- last time one year ago, "fast heart beat" pt states that normal is around 100bpm, gastroporesis History of Any Multi-Drug Resistant Organisms: None Reported Past Surgical History: Appendectomy, Bariatric Surgery, Cholecystectomy, Tonsillectomy Additional Past Surgical History / Comment(s): NASAL Septum repair. COLONOSCOPY., gastric sleeve-04/26/2020 Past Anesthesia/Blood Transfusion Reactions: Motion Sickness Additional Past Anesthesia/Blood Transfusion Reaction / Comment(s): woke up once during surgery Past Psychological History: Anxiety, Depression, PTSD Smoking Status: Never smoker Past Alcohol Use History: None Reported Past Drug Use History: None Reported - Past Family History Father Family Medical History: Liver Disease Additional Family Medical History / Comment(s): at age 61 from COPD. ALso had cirrhosis,hepatitis C, pancreatitis, heart attacks (multiple) and esophagus disease General Exam Limitations: no limitations General appearance: alert, in no apparent distress Head exam: Present: atraumatic, normocephalic Eye exam: Present: normal appearance. Absent: PERRL ENT exam: Present: mucous membranes dry Neck exam: Present: normal inspection. Absent: tenderness, meningismus Respiratory exam: Present: normal lung sounds bilaterally. Absent: respiratory distress, wheezes Cardiovascular Exam: Present: regular rate, normal rhythm GI/Abdominal exam: Present: soft, tenderness (Epigastric). Absent: distended, guarding, rebound Extremities exam: Present: normal inspection, normal capillary refill. Absent: pedal edema Back exam: Present: normal inspection Neurological exam: Present: alert, oriented X3, CN II-XII intact. Absent: motor sensory deficit Psychiatric exam: Present: normal affect, normal mood Skin exam: Present: warm, dry, intact. Absent: cyanosis, diaphoretic Course Vital Signs 11/01/20 11/01/20 11/01/20 17:01 17:57 19:26 Temperature 98.5 F 98.1 F Pulse Rate 89 76 85 Respiratory 16 16 18 Rate Blood Pressure 121/80 118/83 113/76 O2 Sat by Pulse 97 99 98 Oximetry Medical Decision Making - Medical Decision Making 25-year-old female with acute on chronic abdominal pain nausea vomiting over the past one week. Patient is hemodynamically stable, she has some minimal epigastric tenderness, no rebound or guarding. Workup is initiated, KUB negative for obstruction or intraperitoneal free air. Patient has normal CBC, no leukocytosis, stable hemoglobin, normal electrolytes, negative lactic acid, urinalysis shows 15 white cells with no urinary symptoms currently. Patient feeling better at reevaluation. I do recommend that she follow-up with gastroenterology. - Lab Data Result diagrams: 11/01/20 17:54 11/01/20 17:54 Lab Results 11/01/20 11/01/20 11/01/20 Range/Units 17:17 17:54 17:54 WBC 8.1 (3.8-10.6) k/uL RBC 4.70 (3.80-5.40) m/uL Hgb 13.0 (11.4-16.0) gm/dL Hct 40.4 (34.0-46.0) % MCV 85.9 (80.0-100.0) fL MCH 27.6 (25.0-35.0) pg MCHC 32.1 (31.0-37.0) g/dL RDW 14.4 (11.5-15.5) % Plt Count 293 (150-450) k/uL MPV 7.5 Neutrophils % 44 % Lymphocytes % 46 % Monocytes % 4 % Eosinophils % 4 % Basophils % 0 % Neutrophils # 3.5 (1.3-7.7) k/uL Lymphocytes # 3.7 (1.0-4.8) k/uL Monocytes # 0.3 (0-1.0) k/uL Eosinophils # 0.3 (0-0.7) k/uL Basophils # 0.0 (0-0.2) k/uL Sodium 137 (137-145) mmol/L Potassium 4.1 (3.5-5.1) mmol/L Chloride 109 H (98-107) mmol/L Carbon Dioxide 22 (22-30) mmol/L Anion Gap 6 mmol/L BUN 12 (7-17) mg/dL Creatinine 0.77 (0.52-1.04) mg/dL Est GFR (CKD-EPI)AfAm >90 (>60 ml/min/1.73 sqM) Est GFR (CKD-EPI)NonAf >90 (>60 ml/min/1.73 sqM) Glucose 85 (74-99) mg/dL Plasma Lactic Acid Tree (0.7-2.0) mmol/L Calcium 9.4 (8.4-10.2) mg/dL Total Bilirubin 0.3 (0.2-1.3) mg/dL AST 23 (14-36) U/L ALT 16 (4-34) U/L Alkaline Phosphatase 68 (38-126) U/L Total Protein 7.2 (6.3-8.2) g/dL Albumin 3.8 (3.5-5.0) g/dL Amylase 42 (30-110) U/L Lipase 87 (23-300) U/L Urine Color Yellow Urine Appearance Cloudy H (Clear) Urine pH 6.5 (5.0-8.0) Ur Specific [place] 1.021 (1.001-1.035) Urine Protein Trace H (Negative) Urine Glucose (UA) Negative (Negative) Urine Ketones Negative (Negative) Urine Blood Negative (Negative) Urine Nitrite Negative (Negative) Urine Bilirubin Negative (Negative) Urine Urobilinogen <2.0 (<2.0) mg/dL Ur Leukocyte Esterase Large H (Negative) Urine RBC 2 (0-5) /hpf Urine WBC 15 H (0-5) /hpf Ur Squamous Epith Cells 10 H (0-4) /hpf Urine Mucus Occasional H (None) /hpf 11/01/20 Range/Units 17:54 WBC (3.8-10.6) k/uL RBC (3.80-5.40) m/uL Hgb (11.4-16.0) gm/dL Hct (34.0-46.0) % MCV (80.0-100.0) fL MCH (25.0-35.0) pg MCHC (31.0-37.0) g/dL RDW (11.5-15.5) % Plt Count (150-450) k/uL MPV Neutrophils % % Lymphocytes % % Monocytes % % Eosinophils % % Basophils % % Neutrophils # (1.3-7.7) k/uL Lymphocytes # (1.0-4.8) k/uL Monocytes # (0-1.0) k/uL Eosinophils # (0-0.7) k/uL Basophils # (0-0.2) k/uL Sodium (137-145) mmol/L Potassium (3.5-5.1) mmol/L Chloride (98-107) mmol/L Carbon Dioxide (22-30) mmol/L Anion Gap mmol/L BUN (7-17) mg/dL Creatinine (0.52-1.04) mg/dL Est GFR (CKD-EPI)AfAm (>60 ml/min/1.73 sqM) Est GFR (CKD-EPI)NonAf (>60 ml/min/1.73 sqM) Glucose (74-99) mg/dL Plasma Lactic Acid [place] 0.7 (0.7-2.0) mmol/L Calcium (8.4-10.2) mg/dL Total Bilirubin (0.2-1.3) mg/dL AST (14-36) U/L ALT (4-34) U/L Alkaline Phosphatase (38-126) U/L Total Protein (6.3-8.2) g/dL Albumin (3.5-5.0) g/dL Amylase (30-110) U/L Lipase (23-300) U/L Urine Color Urine Appearance (Clear) Urine pH (5.0-8.0) Ur Specific [place] (1.001-1.035) Urine Protein (Negative) Urine Glucose (UA) (Negative) Urine Ketones (Negative) Urine Blood (Negative) Urine Nitrite (Negative) Urine Bilirubin (Negative) Urine Urobilinogen (<2.0) mg/dL Ur Leukocyte Esterase (Negative) Urine RBC (0-5) /hpf Urine WBC (0-5) /hpf Ur Squamous Epith Cells (0-4) /hpf Urine Mucus (None) /hpf Disposition Clinical Impression: Abdominal pain, Nausea & vomiting Disposition: HOME SELF-CARE Condition: Fair Instructions (If sedation given, give patient instructions): Abdominal Pain (ED) Is patient prescribed a controlled substance at d/c from ED?: No Referrals: Marysol Rose DO [Primary Care Provider] - 1-2 days Karin Keith MD [STAFF PHYSICIAN] - 1-2 days Time of Disposition: 19:30
[2020-11-01 17:27] LABS: Appearance,Urine Cloudy (Clear); Bilirubin,Urine Negative (Negative); Blood,Urine Negative (Negative); Color,Urine Yellow; Glucose,Urine (UA) Negative (Negative); Ketones,Urine Negative (Negative); Leukocyte Esterase,Urine Large (Negative); Mucus,Urine Occasional /hpf; Nitrite,Urine Negative (Negative); PH, Urine 6.5 (5.0-8.0); Protein,Urine Trace (Negative); RBC,Urine 2 /hpf (0-5); Specific Gravity,Urine 1.021 (1.001-1.035); Squamous Epithelial Cell,Urine 10 /hpf (0-4); Urobilinogen,Urine <2.0 mg/dL (<2.0); WBC,Urine 15 /hpf (0-5)
--- NOTE | 2020-11-01 18:18 | XR ---
EXAMINATION TYPE: XR KUB DATE OF EXAM: 11/01/2020 COMPARISON: 07/02/2020 HISTORY: Abdominal pain TECHNIQUE: 2 views upright FINDINGS: There is no sign of intestinal obstruction or pneumoperitoneum. Fecal pattern is normal. Th ere are surgical clips from cholecystectomy and also over the stomach. There is no evidence of a mass . Lung bases are clear. There is no pleural effusion. There are no pathologic calcifications over the kidneys. IMPRESSION: Nonacute abdomen. Previous surgery. No adverse change.
[2020-11-01 18:26] LABS: ALT 16 U/L (4-34); AST 23 U/L (14-36); African American GFR (CKD) >90 (>60 ml/min/1.73 sqM); Albumin 3.8 g/dL (3.5-5.0); Alkaline Phosphatase 68 U/L (38-126); Amylase 42 U/L (30-110); Anion Gap 6 mmol/L; Blood Urea Nitrogen 12 mg/dL (7-17); Calcium 9.4 mg/dL (8.4-10.2); Carbon Dioxide 22 mmol/L (22-30); Chloride 109 mmol/L (98-107); Glucose 85 mg/dL (74-99); Lipase 87 U/L (23-300); Non-African American GFR(CKD) >90 (>60 ml/min/1.73 sqM); Potassium 4.1 mmol/L (3.5-5.1); Sodium 137 mmol/L (137-145); Total Bilirubin 0.3 mg/dL (0.2-1.3); Total Protein 7.2 g/dL (6.3-8.2)
[2020-11-01 18:33] LABS: Basophils % (A) 0 %; Eosinophils # (A) 0.3 k/uL (0-0.7); Eosinophils % (A) 4 %; HCT 40.4 % (34.0-46.0); Lymphocytes # (A) 3.7 k/uL (1.0-4.8); Lymphocytes % (A) 46 %; MCH 27.6 pg (25.0-35.0); MCHC 32.1 g/dL (31.0-37.0); MCV 85.9 fL (80.0-100.0); Mean Platelet Volume 7.5; Monocytes # (A) 0.3 k/uL (0-1.0); Monocytes % (A) 4 %; Neutrophils # (A) 3.5 k/uL (1.3-7.7); Neutrophils % (A) 44 %; Platelet Count 293 k/uL (150-450); RDW 14.4 % (11.5-15.5); WBC 8.1 k/uL (3.8-10.6)
[2020-11-01] MEDS ORDERED: HYDROmorphone 1 MG/ML 1 ML SYRINGE IVP STA (19:18)
[2020-11-01 19:28] VITALS: BP 113/76; PULSE 85; RESP 18; TEMP 98.1
== END 2020-11-01 20:10 | disposition home or self-care (01) ==
LOC: EC 16:57
DX: R11.2 Nausea with vomiting, unspecified (principal); R10.13 Epigastric pain; F41.9 Anxiety disorder, unspecified; F32.9 Major depressive disorder, single episode, unspecified; F43.10 Post-traumatic stress disorder, unspecified; E07.9 Disorder of thyroid, unspecified; Z79.890 Hormone replacement therapy; Z79.899 Other long term (current) drug therapy; Z88.0 Allergy status to penicillin; Z88.1 Allergy status to other antibiotic agents; Z88.6 Allergy status to analgesic agent; Z88.8 Allergy status to other drugs, medicaments and biological substances; Z91.013 Allergy to seafood; Z91.018 Allergy to other foods; Z91.040 Latex allergy status; Z90.49 Acquired absence of other specified parts of digestive tract
CPT/HCPCS: 36415; 80053; 82150; 83605; 83690; 85025; 81001; 87086; 74018; 99284; 96374; 96375 ×3; 96361 ×2; J2270; J2405; J1170; C9113

== ENCOUNTER 2020-11-06 16:49 | Emergency (ER) | payer OTHER ==
[2020-11-06 16:55] VITALS: TEMP 98.7
[2020-11-06] MEDS ORDERED: IOPAMIDOL CONTRAST (ORAL USE) VIAL PO PRN (17:32)
[2020-11-06] MEDS ORDERED: SODIUM CHLORIDE 0.9% 1,000 ML IV STA (17:32)
--- NOTE | 2020-11-06 17:34 | ED ---
General Adult HPI - General Chief complaint: GI Bleed Stated complaint: abd pain/rectal bleeding Time Seen by Provider: 11/06/20 17:01 Source: patient Mode of arrival: ambulatory Limitations: no limitations - History of Present Illness Initial comments: Chana is a 25yo female very well-known to the emergency department for chronic abdominal pain. Patient presents today complaining of diffuse abdominal pain as well as some blood in her stool. Patient did have gastric sleeve surgery 6-7 months ago she has lost 100 pounds since that time. She did speak with the surgeon acquisition editor who recommended her come to the ER. She does note that she was recently constipated and she had a bowel movement she did note a small rectal tear which did result in some bleeding. However she's concerned that because she is still seeing bleeding could be due to higher up in her abdomen. - Related Data Home Medications Medication Instructions Recorded Confirmed Norgestimate-Ethinyl Estradiol 1 tab PO HS 02/04/18 11/06/20 [Sprintec 28 Day Tablet] DULoxetine HCL [Cymbalta] 60 mg PO BID 01/19/19 11/06/20 EPINEPHrine (Auto Inject) [Epipen] 0.3 mg IM DAILY PRN 01/19/19 11/06/20 Fluticasone Nasal [place] [Flonase 1 spr EA NOSTRIL DAILY PRN 05/16/20 11/06/20 Nasal [place]] Ergocalciferol [Vitamin D2 50,000 unit PO WE 07/02/20 11/06/20 (DRISDOL)] Alive [employer]'s Complete Vitamin 1 tab PO DAILY 11/06/20 11/06/20 Calcium/Magnesium/Zinc/Vit D3 3 tab PO DAILY 11/06/20 11/06/20 Loratadine 10 mg PO HS 11/06/20 11/06/20 OXcarbazepine [Oxtellar Xr] 300 mg PO DAILY 11/06/20 11/06/20 Omeprazole 20 mg PO BID 11/06/20 11/06/20 Rizatriptan Benzoate [Maxalt ELECTROLESS PLATER] 10 mg PO DAILY PRN 11/06/20 11/06/20 Topiramate [Topamax] 100 mg PO DAILY 11/06/20 11/06/20 busPIRone HCl [Buspar] 10 mg PO BID 11/06/20 11/06/20 traZODone HCL 50 mg PO HS PRN 11/06/20 11/06/20 Previous Rx's Medication Instructions Recorded Ondansetron [Zofran] 4 mg PO TID PRN #30 tab 07/27/20 Allergies Allergy/AdvReac Type Severity Reaction Status Date / Time ceftriaxone [From Rocephin] Allergy Itching Verified 11/06/20 16:55 fentanyl Allergy Rash/Hives Verified 11/06/20 16:55 latex Allergy Rash/Hives Verified 11/06/20 16:55 metoclopramide [From Reglan] Allergy Unknown Verified 11/06/20 16:55 Penicillins Allergy Anaphylaxis Verified 11/06/20 16:55 ibuprofen [From Motrin] AdvReac GI Bleed Verified 11/06/20 16:55 prazosin AdvReac Nausea & Verified 11/06/20 16:55 Vomiting grape juice Allergy Anaphylaxis Uncoded 11/06/20 16:55 Seafood Allergy Anaphylaxis Uncoded 11/06/20 16:55 Review of Systems ROS Statement: Those systems with pertinent positive or pertinent negative responses have been documented in the HPI. ROS Other: All systems not noted in ROS Statement are negative. Past Medical History Past Medical History: Asthma, Chest Pain / Angina, Fibromyalgia, GERD/Reflux, Liver Disease, Thyroid Disorder Additional Past Medical History / Comment(s): Cirrhosis of the liver (pt states these are partly due to her genetics and partly due to mental health medications she has been taking since age 4), Esophagitis. IBS. PART OF STOMACH NON- FUNCTIONING. BLOOD IN STOOL sometimes- last time one year ago, "fast heart beat" pt states that normal is around 100bpm, gastroporesis History of Any Multi-Drug Resistant Organisms: None Reported Past Surgical History: Appendectomy, Bariatric Surgery, Cholecystectomy, Tonsillectomy Additional Past Surgical History / Comment(s): NASAL Septum repair. COLONOSCOPY., gastric sleeve-04/26/2020 Past Anesthesia/Blood Transfusion Reactions: Motion Sickness Additional Past Anesthesia/Blood Transfusion Reaction / Comment(s): woke up once during surgery Past Psychological History: Anxiety, Depression, PTSD Smoking Status: Never smoker Past Alcohol Use History: None Reported Past Drug Use History: None Reported - Past Family History Father Family Medical History: Liver Disease Additional Family Medical History / Comment(s): at age 61 from COPD. ALso had cirrhosis,hepatitis C, pancreatitis, heart attacks (multiple) and esophagus disease General Exam - General Exam Comments Initial Comments: Physical Exam GENERAL: Patient is well-developed and well-nourished. Patient is nontoxic and well-hydrated and is in no distress. HENT: Normocephalic, Atraumatic. EYES: PERRL, EOMI PULMONARY: Unlabored respirations. CARDIOVASCULAR: RRR Warm and well perfused extremities ABDOMEN: Abdomen is soft, nontender, nondistended no focal tenderness palpated SKIN: No rashes or bruising : Rectal exam with external and internal hemorrhoids noted, bright red blood noted on exam NEUROLOGIC: Alert and oriented Normal speech Normal gait MUSCULOSKELETAL: Moving all extremities with no apparent injury PSYCHIATRIC: No SI/HI Limitations: no limitations Course Vital Signs 11/06/20 11/06/20 16:52 19:48 Temperature 98.7 F Pulse Rate 93 68 Respiratory 18 16 Rate Blood Pressure 119/82 105/70 O2 Sat by Pulse 98 98 Oximetry Medical Decision Making - Medical Decision Making Patient was seen and evaluated history is obtained from the patient Labs were unremarkable aside from positive stool guaiac which is likely secondary to the rectal tear Computed tomography scan was unremarkable these results were discussed with surgeon acquisition editor Dr. Dalton who agrees with plan for discharge patient is to see her surgeon Dr. Fontaine on Saturday - Lab Data Result diagrams: 11/06/20 17:42 11/06/20 17:42 Lab Results 11/06/20 11/06/20 11/06/20 Range/Units 17:42 17:42 17:42 WBC 8.1 (3.8-10.6) k/uL RBC 4.65 (3.80-5.40) m/uL Hgb 13.2 (11.4-16.0) gm/dL Hct 39.9 (34.0-46.0) % MCV 85.8 (80.0-100.0) fL MCH 28.4 (25.0-35.0) pg MCHC 33.0 (31.0-37.0) g/dL RDW 14.3 (11.5-15.5) % Plt Count 236 (150-450) k/uL MPV 7.7 Neutrophils % 47 % Lymphocytes % 42 % Monocytes % 5 % Eosinophils % 4 % Basophils % 0 % Neutrophils # 3.8 (1.3-7.7) k/uL Lymphocytes # 3.4 (1.0-4.8) k/uL Monocytes # 0.4 (0-1.0) k/uL Eosinophils # 0.4 (0-0.7) k/uL Basophils # 0.0 (0-0.2) k/uL Sodium 138 (137-145) mmol/L Potassium 4.4 (3.5-5.1) mmol/L Chloride 109 H (98-107) mmol/L Carbon Dioxide 22 (22-30) mmol/L Anion Gap 7 mmol/L BUN 10 (7-17) mg/dL Creatinine 0.74 (0.52-1.04) mg/dL Est GFR (CKD-EPI)AfAm >90 (>60 ml/min/1.73 sqM) Est GFR (CKD-EPI)NonAf >90 (>60 ml/min/1.73 sqM) Glucose 89 (74-99) mg/dL Calcium 9.4 (8.4-10.2) mg/dL Total Bilirubin 0.2 (0.2-1.3) mg/dL AST 25 (14-36) U/L ALT 21 (4-34) U/L Alkaline Phosphatase 71 (38-126) U/L Total Protein 7.3 (6.3-8.2) g/dL Albumin 3.8 (3.5-5.0) g/dL Lipase 132 (23-300) U/L Urine Color Yellow Urine Appearance Cloudy H (Clear) Urine pH 7.0 (5.0-8.0) Ur Specific [place] 1.021 (1.001-1.035) Urine Protein Negative (Negative) Urine Glucose (UA) Negative (Negative) Urine Ketones Negative (Negative) Urine Blood Negative (Negative) Urine Nitrite Negative (Negative) Urine Bilirubin Negative (Negative) Urine Urobilinogen <2.0 (<2.0) mg/dL Ur Leukocyte Esterase Small H (Negative) Urine RBC 1 (0-5) /hpf Urine WBC 12 H (0-5) /hpf Ur Squamous Epith Cells 5 H (0-4) /hpf Urine Bacteria Rare H (None) /hpf Urine Mucus Few H (None) /hpf Urine HCG, Qual (Not Detectd) Stool Occult Blood (Negative) 11/06/20 11/06/20 Range/Units 17:42 17:45 WBC (3.8-10.6) k/uL RBC (3.80-5.40) m/uL Hgb (11.4-16.0) gm/dL Hct (34.0-46.0) % MCV (80.0-100.0) fL MCH (25.0-35.0) pg MCHC (31.0-37.0) g/dL RDW (11.5-15.5) % Plt Count (150-450) k/uL MPV Neutrophils % % Lymphocytes % % Monocytes % % Eosinophils % % Basophils % % Neutrophils # (1.3-7.7) k/uL Lymphocytes # (1.0-4.8) k/uL Monocytes # (0-1.0) k/uL Eosinophils # (0-0.7) k/uL Basophils # (0-0.2) k/uL Sodium (137-145) mmol/L Potassium (3.5-5.1) mmol/L Chloride (98-107) mmol/L Carbon Dioxide (22-30) mmol/L Anion Gap mmol/L BUN (7-17) mg/dL Creatinine (0.52-1.04) mg/dL Est GFR (CKD-EPI)AfAm (>60 ml/min/1.73 sqM) Est GFR (CKD-EPI)NonAf (>60 ml/min/1.73 sqM) Glucose (74-99) mg/dL Calcium (8.4-10.2) mg/dL Total Bilirubin (0.2-1.3) mg/dL AST (14-36) U/L ALT (4-34) U/L Alkaline Phosphatase (38-126) U/L Total Protein (6.3-8.2) g/dL Albumin (3.5-5.0) g/dL Lipase (23-300) U/L Urine Color Urine Appearance (Clear) Urine pH (5.0-8.0) Ur Specific [place] (1.001-1.035) Urine Protein (Negative) Urine Glucose (UA) (Negative) Urine Ketones (Negative) Urine Blood (Negative) Urine Nitrite (Negative) Urine Bilirubin (Negative) Urine Urobilinogen (<2.0) mg/dL Ur Leukocyte Esterase (Negative) Urine RBC (0-5) /hpf Urine WBC (0-5) /hpf Ur Squamous Epith Cells (0-4) /hpf Urine Bacteria (None) /hpf Urine Mucus (None) /hpf Urine HCG, Qual Not Detected (Not Detectd) Stool Occult Blood Positive H (Negative) Disposition Clinical Impression: Abdominal pain Disposition: HOME SELF-CARE Condition: Stable Additional Instructions: Follow up with Dr Fontaine tomorrow Is patient prescribed a controlled substance at d/c from ED?: No Referrals: Marysol Rose DO [Primary Care Provider] - 1-2 days
[2020-11-06 18:03] LABS: Basophils % (A) 0 %; Eosinophils # (A) 0.4 k/uL (0-0.7); Eosinophils % (A) 4 %; HCT 39.9 % (34.0-46.0); HGB 13.2 gm/dL (11.4-16.0); Lymphocytes # (A) 3.4 k/uL (1.0-4.8); Lymphocytes % (A) 42 %; MCH 28.4 pg (25.0-35.0); MCV 85.8 fL (80.0-100.0); Mean Platelet Volume 7.7; Monocytes # (A) 0.4 k/uL (0-1.0); Monocytes % (A) 5 %; Neutrophils # (A) 3.8 k/uL (1.3-7.7); Neutrophils % (A) 47 %; Platelet Count 236 k/uL (150-450); RBC 4.65 m/uL (3.80-5.40); RDW 14.3 % (11.5-15.5); WBC 8.1 k/uL (3.8-10.6)
[2020-11-06 18:07] LABS: Appearance,Urine Cloudy (Clear); Bacteria,Urine Rare /hpf; Bilirubin,Urine Negative (Negative); Blood,Urine Negative (Negative); Color,Urine Yellow; Glucose,Urine (UA) Negative (Negative); Ketones,Urine Negative (Negative); Leukocyte Esterase,Urine Small (Negative); Mucus,Urine Few /hpf; Nitrite,Urine Negative (Negative); Protein,Urine Negative (Negative); RBC,Urine 1 /hpf (0-5); Specific Gravity,Urine 1.021 (1.001-1.035); Squamous Epithelial Cell,Urine 5 /hpf (0-4); Urobilinogen,Urine <2.0 mg/dL (<2.0); WBC,Urine 12 /hpf (0-5)
[2020-11-06 18:22] LABS: Chloride 109 mmol/L (98-107)
[2020-11-06 18:23] LABS: ALT 21 U/L (4-34); AST 25 U/L (14-36); African American GFR (CKD) >90 (>60 ml/min/1.73 sqM); Albumin 3.8 g/dL (3.5-5.0); Alkaline Phosphatase 71 U/L (38-126); Anion Gap 7 mmol/L; Blood Urea Nitrogen 10 mg/dL (7-17); Calcium 9.4 mg/dL (8.4-10.2); Carbon Dioxide 22 mmol/L (22-30); Glucose 89 mg/dL (74-99); Lipase 132 U/L (23-300); Non-African American GFR(CKD) >90 (>60 ml/min/1.73 sqM); Potassium 4.4 mmol/L (3.5-5.1); Sodium 138 mmol/L (137-145); Total Bilirubin 0.2 mg/dL (0.2-1.3); Total Protein 7.3 g/dL (6.3-8.2)
[2020-11-06] MEDS ORDERED: ONDANSETRON 4 MG/2 ML VIAL IVP STA (18:39)
--- NOTE | 2020-11-06 19:02 | CT ---
EXAMINATION TYPE: CT abdomen pelvis w con DATE OF EXAM: 11/06/2020 COMPARISON: 07/02/2020 HISTORY: generalized pain CT DLP: 966.9 mGycm Automated exposure control for dose reduction was used. CONTRAST: Performed with IV Contrast, patient injected with 100 mL of Isovue 300. Lung bases are clear. There is no pleural effusion. Heart size is normal. There is no pericardial eff usion. There are clips around the stomach. There are liver spleen pancreas appear normal. There are clips fr om cholecystectomy. The bile ducts are not dilated. There is no adrenal mass. Kidneys show satisfactory contrast opacification. There is no hydronephrosi s. Ureters are not dilated. There is no retroperitoneal adenopathy. Bladder distends smoothly. There is no inguinal hernia. Uterus is anteverted. There is no free fluid in the pelvis. There is no pelvic mass. Lumbar vertebra have normal spacing and alignment. Posterior elements are intact. The bony pelvis is intact. Hip joints appear normal. There is no mesenteric edema. There is no ascites or free air. There is no bowel obstruction. Appendi x is not seen. There is no sign of thickened appendix. IMPRESSION: No acute abnormality of the abdomen pelvis. Gastric bariatric surgery. There is clearing of the cyst on the left ovary compared to old exam.
[2020-11-06 19:50] VITALS: BP 105/70; PULSE 68; RESP 16
== END 2020-11-06 20:34 | disposition home or self-care (01) ==
LOC: EC 16:49
DX: R10.9 Unspecified abdominal pain (principal); K64.8 Other hemorrhoids; K64.4 Residual hemorrhoidal skin tags; J45.909 Unspecified asthma, uncomplicated; K21.9 Gastro-esophageal reflux disease without esophagitis; M79.7 Fibromyalgia; F32.9 Major depressive disorder, single episode, unspecified; F41.9 Anxiety disorder, unspecified; Z79.899 Other long term (current) drug therapy; Z79.3 Long term (current) use of hormonal contraceptives; Z88.1 Allergy status to other antibiotic agents; Z88.5 Allergy status to narcotic agent; Z91.040 Latex allergy status; Z88.0 Allergy status to penicillin; Z88.6 Allergy status to analgesic agent; Z91.018 Allergy to other foods; Z91.013 Allergy to seafood; Z88.8 Allergy status to other drugs, medicaments and biological substances; Z90.89 Acquired absence of other organs; Z98.84 Bariatric surgery status; Z90.49 Acquired absence of other specified parts of digestive tract
CPT/HCPCS: 36415; 80053; 83690; 85025; 82272; 81001; 81025; 87086; 74177; 99285; 96374; J2405; Q9967

== ENCOUNTER → 2020-11-14 | Outpatient (CLI) | payer OTHER ==
[2020-11-14 13:49] VITALS: BP 115/79; PULSE 118; TEMP 98; BMI 30.8
--- NOTE | 2020-11-14 15:20 | P.HPBAR ---
Bariatric H&P - History & Physicial H&P Date: 11/14/20 History & Physicial: Visit/CC: sleeve follow up Patient initial contact: Initial weight: 113.307 kg Initial weight in pounds: 249.80 Height: 5 ft 1 in Initial BMI: 47.2 Last weight: Current weight: 73.936 kg Current weight in pounds: 163.00 Current BMI: 30.8 [place] body weight (based on NIH guidelines): 47.627 kg Excess body weight loss: 59.9% The patient is a 25 year-old F who presents for Bariatric Assessment. Patient resents today for bariatric follow-up. She's done excellent with her weight loss. She lost approximately 90 pounds. She's acquainted constipation and some rectal bleeding. She's also had some minimal GERD. Past Medical History Past Medical History: Asthma, Chest Pain / Angina, Fibromyalgia, GERD/Reflux, Liver Disease, Thyroid Disorder Additional Past Medical History / Comment(s): Cirrhosis of the liver (pt states these are partly due to her genetics and partly due to mental health medications she has been taking since age 4), Esophagitis. IBS. PART OF STOMACH NON- FUNCTIONING. BLOOD IN STOOL sometimes- last time one year ago, "fast heart beat" pt states that normal is around 100bpm, gastroporesis History of Any Multi-Drug Resistant Organisms: None Reported Past Surgical History: Appendectomy, Bariatric Surgery, Cholecystectomy, Tonsillectomy Additional Past Surgical History / Comment(s): NASAL Septum repair. COLONOSCOPY., gastric sleeve-04/26/2020 Past Anesthesia/Blood Transfusion Reactions: Motion Sickness Additional Past Anesthesia/Blood Transfusion Reaction / Comm: woke up once during surgery Past Psychological History: Anxiety, Depression, PTSD Additional Psychological History / Comment(s): 04/20/19: Takes [place] and Cymbalta daily, agoraphobia Smoking Status: Never smoker Past Alcohol Use History: None Reported Past Drug Use History: None Reported - Past Family History Father Family Medical History: Liver Disease Additional Family Medical History / Comment(s): at age 61 from COPD. ALso had cirrhosis,hepatitis C, pancreatitis, heart attacks (multiple) and esophagus disease Surgical - Exam Vital Signs Temp Pulse BP 98 F 118 H 115/79 11/14/20 13:47 11/14/20 13:47 11/14/20 13:47 - General well developed, well nourished, no distress - Eyes PERRL - ENT normal pinna - Neck no masses - Respiratory normal expansion - Cardiovascular Rhythm: regular - Abdomen Abdomen: soft, non tender Bariatric Assessment & Plan Plan: Constipation. Patient's her start high-fiber diet increased water intake. She'll also get a Fleet enema. Her GERD is minimal we'll observe her to follow- up in one week. Bariatric Checklist Checklist: Plan: Checklist: EGD: 1. Hiatal hernia: 2. H. Pylori: HgbA1c: Vitamin D: Smoking: Never smoker Primary care physician referral: Marysol Rose Psychiatry clearance: Cardiology clearance: Sleep study: Diet journal: VTE risk score: VTE risk level: Rehab needs at discharge:
== END ==
LOC: BARWHC3 12:58
PROVIDERS: ATTEND Surgery
DX: K59.00 Constipation, unspecified (principal); J45.909 Unspecified asthma, uncomplicated
CPT/HCPCS: 97803; G0463; 99211

== ENCOUNTER → 2020-11-28 | Outpatient (CLI) | payer OTHER ==
[2020-11-28 13:26] VITALS: BP 112/75; PULSE 94; RESP 18; TEMP 98; BMI 30.2
--- NOTE | 2020-12-05 16:01 | P.HPBAR ---
Bariatric H&P - History & Physicial H&P Date: 11/28/20 History & Physicial: Visit/CC: follow up Patient initial contact: Initial weight: 113.307 kg Initial weight in pounds: 249.80 Height: 5 ft 1 in Initial BMI: 47.2 Last weight: Current weight: 72.575 kg Current weight in pounds: 160.00 Current BMI: 30.2 [place] body weight (based on NIH guidelines): 47.627 kg Excess body weight loss: 62.0% The patient is a 25 year-old F who presents for Bariatric Assessment. Patient presents today for sleeve gastric and follow-up. She feels quite well. Her constipation is improved. At some mild GERD. Past Medical History Past Medical History: Asthma, Chest Pain / Angina, Fibromyalgia, GERD/Reflux, Liver Disease, Thyroid Disorder Additional Past Medical History / Comment(s): Cirrhosis of the liver (pt states these are partly due to her genetics and partly due to mental health medications she has been taking since age 4), Esophagitis. IBS. PART OF STOMACH NON- FUNCTIONING. BLOOD IN STOOL sometimes- last time one year ago, "fast heart beat" pt states that normal is around 100bpm, gastroporesis History of Any Multi-Drug Resistant Organisms: None Reported Past Surgical History: Appendectomy, Bariatric Surgery, Cholecystectomy, Tonsillectomy Additional Past Surgical History / Comment(s): NASAL Septum repair. COLONOSCOPY., gastric sleeve-04/26/2020 Past Anesthesia/Blood Transfusion Reactions: Motion Sickness Additional Past Anesthesia/Blood Transfusion Reaction / Comm: woke up once du ring surgery Past Psychological History: Anxiety, Depression, PTSD Additional Psychological History / Comment(s): 04/20/19: Takes [place] and Cymbalta daily, agoraphobia Smoking Status: Never smoker Past Alcohol Use History: None Reported Past Drug Use History: None Reported - Past Family History Father Family Medical History: Liver Disease Additional Family Medical History / Comment(s): at age 61 from COPD. ALso had cirrhosis,hepatitis C, pancreatitis, heart attacks (multiple) and esophagus disease Surgical - Exam Vital Signs Temp Pulse Resp BP 98.0 F 94 18 112/75 11/28/20 13:15 11/28/20 13:15 11/28/20 13:15 11/28/20 13:15 - General well developed, well nourished, no distress - Eyes PERRL - ENT normal pinna - Neck no masses - Respiratory normal expansion - Cardiovascular Rhythm: regular - Abdomen Abdomen: soft, non tender Bariatric Assessment & Plan Plan: Patient's constipation is improved. Her GERD is minimal and will be observed. She'll follow-up in 4 weeks. Bariatric Checklist Checklist: Plan: Checklist: EGD: 1. Hiatal hernia: 2. H. Pylori: HgbA1c: Vitamin D: Smoking: Never smoker Primary care physician referral: Marysol Rose Psychiatry clearance: Cardiology clearance: Sleep study: Diet journal: VTE risk score: VTE risk level: Rehab needs at discharge:
== END ==
LOC: BARWHC3 12:42
PROVIDERS: ATTEND Surgery
DX: Z46.51 Encounter for fitting and adjustment of gastric lap band (principal); Z98.84 Bariatric surgery status; K59.00 Constipation, unspecified; K21.9 Gastro-esophageal reflux disease without esophagitis; J45.909 Unspecified asthma, uncomplicated; E03.9 Hypothyroidism, unspecified
CPT/HCPCS: 99211

== ENCOUNTER → 2021-02-27 | Outpatient (CLI) | payer OTHER ==
[2021-02-27 14:03] VITALS: BP 108/75; PULSE 87; RESP 16; TEMP 98.2
[2021-02-27 15:49] LABS: HCT 41.3 % (34.0-46.0); HGB 13.7 gm/dL (11.4-16.0); MCH 27.9 pg (25.0-35.0); MCHC 33.1 g/dL (31.0-37.0); MCV 84.4 fL (80.0-100.0); Mean Platelet Volume 7.4; Platelet Count 177 k/uL (150-450); RDW 13.6 % (11.5-15.5); WBC 4.1 k/uL (3.8-10.6)
[2021-02-28 02:43] LABS: Ferritin 22.1 ng/mL (10.0-291.0)
[2021-02-28 02:49] LABS: % Iron Saturation 11.11 (12.00-45.00); ALT 45 U/L (8-44); AST 36 U/L (13-35); African American GFR (CKD) 117.9 (60.0-200.0); Albumin/Globulin Ratio 1.59 (1.60-3.17); Alkaline Phosphatase 102 U/L (41-126); Calcium 9.2 mg/dL (8.7-10.3); Carbon Dioxide 24.4 mmol/L (21.6-31.8); Chloride 107 mmol/L (96-109); Folate, Serum >24.0 ng/mL; Globulin 2.7 g/dL (1.6-3.3); Glucose 91 mg/dL (70-110); Iron 40 ug/dL (50-170); Lithium <0.1 mmol/L (0.5-1.2); Magnesium 2.1 mg/dL (1.5-2.4); Non-African American GFR(CKD) 101.8 (60.0-200.0); Potassium 4.7 mmol/L (3.5-5.5); Sodium 143 mmol/L (135-145); Total Bilirubin 0.1 mg/dL (0.3-1.2); Total Iron Binding Capacity 360 ug/dL (228-460)
[2021-02-28 13:07] LABS: Zinc, Serum 72 ug/dL (60-130)
[2021-03-01 06:52] LABS: Vitamin A 68 ug/dL (38-106)
[2021-03-01 07:03] LABS: Vit B1(Thiamine) 60 ug/L (38-122)
[2021-03-02 23:58] LABS: Selenium 140 mcg/L (63-160)
--- NOTE | 2021-04-06 12:40 | P.HPBAR ---
Bariatric H&P - History & Physicial H&P Date: 02/27/21 History & Physicial: Visit/CC: Patient initial contact: Initial weight: 113.307 kg Initial weight in pounds: 249.80 Height: Initial BMI: Last weight: Current weight: Current weight in pounds: Current BMI: [place] body weight (based on NIH guidelines): Excess body weight loss: The patient is a 25 year-old F who presents for Bariatric Assessment. Patient presents today for sleeve gastrectomy follow-up. She has some complaints of GERD. Past Medical History Past Medical History: Asthma, Chest Pain / Angina, Fibromyalgia, GERD/Reflux, Liver Disease, Thyroid Disorder Additional Past Medical History / Comment(s): Cirrhosis of the liver (pt states these are partly due to her genetics and partly due to mental health medications she has been taking since age 4), Esophagitis. IBS. PART OF STOMACH NON- FUNCTIONING. BLOOD IN STOOL sometimes- last time one year ago, "fast heart beat" pt states that normal is around 100bpm, gastroporesis History of Any Multi-Drug Resistant Organisms: None Reported Past Surgical History: Appendectomy, Bariatric Surgery, Cholecystectomy, Tonsillectomy Additional Past Surgical History / Comment(s): NASAL Septum repair. COLONOSCOPY., gastric sleeve-04/26/2020 Past Anesthesia/Blood Transfusion Reactions: Motion Sickness Additional Past Anesthesia/Blood Transfusion Reaction / Comm: woke up once during surgery Past Psychological History: Anxiety, Depression, PTSD Additional Psychological History / Comment(s): 04/20/19: Takes [place] and Cymba [place]ta daily, agoraphobia Smoking Status: Never smoker Past Alcohol Use History: None Reported Past Drug Use History: None Reported - Past Family History Father Family Medical History: Liver Disease Additional Family Medical History / Comment(s): at age 61 from COPD. ALso had cirrhosis,hepatitis C, pancreatitis, heart attacks (multiple) and esophagus disease Surgical - Exam Vital Signs Temp Pulse Resp BP 98.2 F 87 16 108/75 02/27/21 14:01 02/27/21 14:01 02/27/21 14:01 02/27/21 14:01 - General well developed, well nourished, no distress - Eyes PERRL - ENT normal pinna - Neck no masses - Respiratory normal expansion - Cardiovascular Rhythm: regular - Abdomen Abdomen: soft, non tender Results - Labs 02/27/21 14:57 02/27/21 14:57 Bariatric Assessment & Plan Plan: Resolving morbid obesity. Patient is minimal will be observed. Bariatric Checklist Checklist: Plan: Checklist: EGD: 1. Hiatal hernia: 2. H. Pylori: HgbA1c: Vitamin D: Smoking: Never smoker Primary care physician referral: Marysol Rose Psychiatry clearance: Cardiology clearance: Sleep study: Diet journal: VTE risk score: VTE risk level: Rehab needs at discharge:
== END | disposition home or self-care (01) ==
LOC: BARWHC3 13:38
PROVIDERS: ATTEND Surgery
DX: E66.01 Morbid (severe) obesity due to excess calories (principal); Z79.899 Other long term (current) drug therapy
CPT/HCPCS: 84255; 84439; 84425; 80053; 82607; 82728; 82746; 83540; 83550; 80178; 83735; 84443; 84590; 84630; 85025; 82306; G0463; 99211

== ENCOUNTER 2021-03-20 18:21 | Emergency (ER) | payer OTHER ==
[2021-03-20 18:24] VITALS: TEMP 98.6
[2021-03-20] MEDS ORDERED: SODIUM CHLORIDE 0.9% 1,000 ML IV STA (18:40)
[2021-03-20] MEDS ORDERED: ONDANSETRON 4 MG/2 ML VIAL IVP STA (18:40)
[2021-03-20] MEDS ORDERED: MORPHINE SULFATE 4 MG/ML SYRINGE IV STA (18:40)
--- NOTE | 2021-03-20 18:49 | ED ---
Abdominal Pain HPI - General Chief Complaint: Abdominal Pain Stated Complaint: R side pain & nausea Source: patient, RN notes reviewed, old records reviewed Mode of arrival: ambulatory Limitations: no limitations - History of Present Illness Initial Comments: 25-year-old white female, alert and oriented 4, presents to the emergency room ambulatory with complaints of nausea and vomiting with right lower abdominal pain for 3 days. Patient states that she has had this same pain in the past and was told that it was services of the liver. She states that sometimes she eats come to the hospital for pain management. She states that with yesterday she vomited once today she's vomited twice and was watery in nature. She states that she is also constipated and when she tries to have a bowel movement the pain is worse. She states that the pain radiates from her right lower back down her right leg and the only relief is to lay on her left side. Patient has a history of fibromyalgia, cirrhosis, gastroparesis surgical history of an appendectomy and a cholecystectomy and bariatric surgery. Patient has been afebrile. MD Complaint: abdominal pain -: days(s) (3) Location: RLQ Radiation: other (Down right leg and right lower back) Severity: severe Severity scale (1-10): 9 Quality: sharp Consistency: intermittent Improves With: other (Lying on her left side) Worsens With: bowel movement, other (Lying on her right side) Associated Symptoms: nausea, vomiting, other (Constipation) - Related Data Home Medications Medication Instructions Recorded Confirmed DULoxetine HCL [Cymbalta] 60 mg PO BID@0900,2100 01/19/19 03/20/21 EPINEPHrine (Auto Inject) [Epipen] 0.3 mg IM DAILY PRN 01/19/19 03/20/21 Fluticasone Nasal [place] [Flonase 1 spr EA NOSTRIL DAILY PRN 05/16/20 03/20/21 Nasal [place]] Ergocalciferol [Vitamin D2 50,000 unit PO WE 07/02/20 03/20/21 (DRISDOL)] Alive Women's Complete Vitamin 1 tab PO DAILY@0900 11/06/20 03/20/21 Calcium/Magnesium/Zinc/Vit D3 3 tab PO DAILY@0900 11/06/20 03/20/21 Loratadine 10 mg PO HS@209911/06/20 03/20/21 OXcarbazepine [Oxtellar Xr] 300 mg PO BID@0900,209911/06/20 03/20/21 Omeprazole 20 mg PO BID@0900,209911/06/20 03/20/21 Rizatriptan Benzoate [Maxalt [employer]] 10 mg PO Q4H PRN 11/06/20 03/20/21 Topiramate [Topamax] 100 mg PO HS@209911/06/20 03/20/21 busPIRone HCl [Buspar] 10 mg PO TID@0900,1500,209911/06/20 03/20/21 Etonogestrel [Nexplanon] 1 implant SQ [id number] 02/27/21 03/20/21 Levothyroxine Sodium [Synthroid] 125 mcg PO DAILY@0903/20/21 03/20/21 Norgestimate-Ethinyl Estradiol 1 tab PO DAILY@0900 03/20/21 03/20/21 [Sprintec 28 Day Tablet] traZODone HCL [Desyrel] 100 mg PO HS@209903/20/21 03/20/21 Previous Rx's Medication Instructions Recorded Ondansetron [Zofran] 4 mg PO TID PRN #30 tab 07/27/20 Allergies Allergy/AdvReac Type Severity Reaction Status Date / Time ceftriaxone [From Rocephin] Allergy Itching Verified 03/20/21 23:23 fentanyl Allergy Rash/Hives Verified 03/20/21 23:23 latex Allergy Rash/Hives Verified 03/20/21 23:23 metoclopramide [From Reglan] Allergy Unknown Verified 03/20/21 23:23 Penicillins Allergy Anaphylaxis Verified 03/20/21 23:23 ibuprofen [From Motrin] AdvReac GI Bleed Verified 03/20/21 23:23 prazosin AdvReac Nausea & Verified 03/20/21 23:23 Vomiting grape juice Allergy Anaphylaxis Uncoded 03/20/21 23:23 Seafood Allergy Anaphylaxis Uncoded 03/20/21 23:23 Review of Systems ROS Statement: Those systems with pertinent positive or pertinent negative responses have been documented in the HPI. ROS Other: All systems not noted in ROS Statement are negative. Past Medical History Past Medical History: Asthma, Chest Pain / Angina, Fibromyalgia, GERD/Reflux, Liver Disease, Thyroid Disorder Additional Past Medical History / Comment(s): Cirrhosis of the liver (pt states these are partly due to her genetics and partly due to mental health medications she has been taking since age 4), Esophagitis. IBS. PART OF STOMACH NON- FUNCTIONING. BLOOD IN STOOL sometimes- last time one year ago, "fast heart beat" pt states that normal is around 100bpm, gastroporesis History of Any Multi-Drug Resistant Organisms: None Reported Past Surgical History: Appendectomy, Bariatric Surgery, Cholecystectomy, Tonsillectomy Additional Past Surgical History / Comment(s): NASAL Septum repair. COLONOSCOPY., gastric sleeve-04/26/2020 Past Anesthesia/Blood Transfusion Reactions: Motion Sickness Additional Past Anesthesia/Blood Transfusion Reaction / Comment(s): woke up once during surgery Past Psychological History: Anxiety, Depression, PTSD Smoking Status: Never smoker Past Alcohol Use History: None Reported Past Drug Use History: None Reported - Past Family History Father Family Medical History: Liver Disease Additional Family Medical History / Comment(s): at age 61 from COPD. ALso had cirrhosis,hepatitis C, pancreatitis, heart attacks (multiple) and esophagus disease General Exam Limitations: no limitations General appearance: alert, in no apparent distress Head exam: Present: atraumatic, normocephalic, normal inspection Eye exam: Present: normal appearance, PERRL, EOMI. Absent: scleral icterus, conjunctival injection, periorbital swelling Pupils: Present: normal accommodation ENT exam: Present: normal exam, normal oropharynx, mucous membranes moist Neck exam: Present: normal inspection, full ROM. Absent: tenderness, meningismus, lymphadenopathy Respiratory exam: Present: normal lung sounds bilaterally. Absent: respiratory distress, wheezes, rales, rhonchi, stridor, chest wall tenderness, accessory muscle use, decreased breath sounds, prolonged expiratory Cardiovascular Exam: Present: tachycardia GI/Abdominal exam: Present: soft, tenderness (Right lower quadrant), normal bowel sounds. Absent: distended, guarding, rebound, rigid Extremities exam: Present: normal inspection, full ROM, normal capillary refill. Absent: tenderness, pedal edema, joint swelling, calf tenderness Back exam: Present: normal inspection, full ROM. Absent: tenderness, CVA tenderness (R), CVA tenderness (L), muscle spasm, paraspinal tenderness, vertebral tenderness, rash noted Neurological exam: Present: alert, oriented X3, CN II-XII intact Psychiatric exam: Present: normal affect, normal mood Skin exam: Present: warm, dry, intact, normal color. Absent: rash Course Vital Signs 03/20/21 03/20/21 03/20/21 18:22 18:36 19:17 Temperature 98.6 F Pulse Rate 110 H 110 H 104 H Respiratory 20 20 18 Rate Blood Pressure 108/68 105/86 93/62 O2 Sat by Pulse 99 98 98 Oximetry Medical Decision Making - Medical Decision Making CT the abdomen and pelvis was performed in 11/06/2020 when compared to a CT done on 07/02/2020. There is no acute abnormality abdomen and pelvis there is evidence of gastric bypass surgery, there is clearing of a left ovarian cyst. Hip joints were normal appearing. The liver and the spleen and pancreas were normal. Lab work today shows Patient's urine test is negative, hemoglobin and hematocrit is within normal limits at 12 and 38 respectively. WBC count is nonelevated at 5.4. BUN and creatinine is 10 and 0.56 respectively. Glucose is 91. AST is 56 ALT is 40 which is only mildly elevated. KUB x-ray shows a nonacute abdomen with no changes compared to 11/01/2020. There is no sign of intestinal obstruction or pneumoperitoneum. Lung bases are clear there is no sign of a mass. CT the abdomen and pelvis with contrast shows a right ovarian cyst measuring 2.5 cm, no other acute abnormalities of the abdomen and pelvis. There is no bowel obstruction and there is no sign of a thickened appendix. There are hives noted from gastric surgery. There is no adrenal mass no hydronephrosis, no retroperitoneal adenopathy and no free fluid. The right ovarian cyst is likely the cause of the patient's pain. Her last menstrual period was February 28 and she is to start this next week. She will be directed to follow up with her primary care doctor next week. Motrin and heating pads as needed for pain. Case discussed with Dr. Chucho medina. - Lab Data Result diagrams: 03/20/21 18:51 03/20/21 18:51 Lab Results 03/20/21 03/20/21 03/20/21 Range/Units 18:51 18:51 18:51 WBC 5.4 (3.8-10.6) k/uL RBC 4.60 (3.80-5.40) m/uL Hgb 12.6 (11.4-16.0) gm/dL Hct 38.2 (34.0-46.0) % MCV 83.2 (80.0-100.0) fL MCH 27.5 (25.0-35.0) pg MCHC 33.0 (31.0-37.0) g/dL RDW 14.8 (11.5-15.5) % Plt Count 255 (150-450) k/uL MPV 7.5 Neutrophils % 27 % Lymphocytes % 59 % Monocytes % 5 % Eosinophils % 5 % Basophils % 1 % Neutrophils # 1.5 (1.3-7.7) k/uL Lymphocytes # 3.2 (1.0-4.8) k/uL Monocytes # 0.3 (0-1.0) k/uL Eosinophils # 0.3 (0-0.7) k/uL Basophils # 0.1 (0-0.2) k/uL PT (9.0-12.0) sec INR (<1.2) APTT (22.0-30.0) sec Sodium (137-145) mmol/L Potassium (3.5-5.1) mmol/L Chloride (98-107) mmol/L Carbon Dioxide (22-30) mmol/L Anion Gap mmol/L BUN (7-17) mg/dL Creatinine (0.52-1.04) mg/dL Est GFR (CKD-EPI)AfAm (>60 ml/min/1.73 sqM) Est GFR (CKD-EPI)NonAf (>60 ml/min/1.73 sqM) Glucose (74-99) mg/dL Calcium (8.4-10.2) mg/dL Magnesium (1.6-2.3) mg/dL Total Bilirubin (0.2-1.3) mg/dL AST (14-36) U/L ALT (4-34) U/L Alkaline Phosphatase (38-126) U/L Total Protein (6.3-8.2) g/dL Albumin (3.5-5.0) g/dL Amylase (30-110) U/L Lipase (23-300) U/L Urine Color Yellow Urine Appearance Cloudy H (Clear) Urine pH 5.0 (5.0-8.0) Ur Specific [place] 1.013 (1.001-1.035) Urine Protein Negative (Negative) Urine Glucose (UA) Negative (Negative) Urine Ketones Negative (Negative) Urine Blood Negative (Negative) Urine Nitrite Negative (Negative) Urine Bilirubin Negative (Negative) Urine Urobilinogen <2.0 (<2.0) mg/dL Ur Leukocyte Esterase Trace H (Negative) Urine RBC 1 (0-5) /hpf Urine WBC 5 (0-5) /hpf Ur Squamous Epith Cells 4 (0-4) /hpf Amorphous Sediment Rare H (None) /hpf Urine Mucus Rare H (None) /hpf Urine HCG, Qual Not Detected (Not Detectd) 03/20/21 03/20/21 Range/Units 18:51 19:40 WBC (3.8-10.6) k/uL RBC (3.80-5.40) m/uL Hgb (11.4-16.0) gm/dL Hct (34.0-46.0) % MCV (80.0-100.0) fL MCH (25.0-35.0) pg MCHC (31.0-37.0) g/dL RDW (11.5-15.5) % Plt Count (150-450) k/uL MPV Neutrophils % % Lymphocytes % % Monocytes % % Eosinophils % % Basophils % % Neutrophils # (1.3-7.7) k/uL Lymphocytes # (1.0-4.8) k/uL Monocytes # (0-1.0) k/uL Eosinophils # (0-0.7) k/uL Basophils # (0-0.2) k/uL PT 10.1 (9.0-12.0) sec INR 0.9 (<1.2) APTT 24.5 (22.0-30.0) sec Sodium 140 (137-145) mmol/L Potassium 4.6 (3.5-5.1) mmol/L Chloride 111 H (98-107) mmol/L Carbon Dioxide 24 (22-30) mmol/L Anion Gap 5 mmol/L BUN 10 (7-17) mg/dL Creatinine 0.56 (0.52-1.04) mg/dL Est GFR (CKD-EPI)AfAm >90 (>60 ml/min/1.73 sqM) Est GFR (CKD-EPI)NonAf >90 (>60 ml/min/1.73 sqM) Glucose 91 (74-99) mg/dL Calcium 9.2 (8.4-10.2) mg/dL Magnesium 2.1 (1.6-2.3) mg/dL Total Bilirubin 0.7 (0.2-1.3) mg/dL AST 56 H (14-36) U/L ALT 40 H (4-34) U/L Alkaline Phosphatase 99 (38-126) U/L Total Protein 7.3 (6.3-8.2) g/dL Albumin 3.9 (3.5-5.0) g/dL Amylase 52 (30-110) U/L Lipase 161 (23-300) U/L Urine Color Urine Appearance (Clear) Urine pH (5.0-8.0) Ur Specific [place] (1.001-1.035) Urine Protein (Negative) Urine Glucose (UA) (Negative) Urine Ketones (Negative) Urine Blood (Negative) Urine Nitrite (Negative) Urine Bilirubin (Negative) Urine Urobilinogen (<2.0) mg/dL Ur Leukocyte Esterase (Negative) Urine RBC (0-5) /hpf Urine WBC (0-5) /hpf Ur Squamous Epith Cells (0-4) /hpf Amorphous Sediment (None) /hpf Urine Mucus (None) /hpf Urine HCG, Qual (Not Detectd) Disposition Clinical Impression: Ovarian cyst Disposition: HOME SELF-CARE Condition: Good Instructions (If sedation given, give patient instructions): Ovarian Cyst (ED), [place] (ED), Abdominal Pain (ED) Additional Instructions: Take Tylenol and Motrin as needed for pain. Use heating pad for pain. Follow- up with the primary care doctor in 1 week Is patient prescribed a controlled substance at d/c from ED?: No Referrals: Marysol Rose DO [Primary Care Provider] - 1-2 days Time of Disposition: 23:23
[2021-03-20 19:18] VITALS: RESP 18
[2021-03-20 19:22] LABS: Basophils # (A) 0.1 k/uL (0-0.2); Basophils % (A) 1 %; Eosinophils # (A) 0.3 k/uL (0-0.7); Eosinophils % (A) 5 %; HCT 38.2 % (34.0-46.0); HGB 12.6 gm/dL (11.4-16.0); Lymphocytes # (A) 3.2 k/uL (1.0-4.8); Lymphocytes % (A) 59 %; MCH 27.5 pg (25.0-35.0); MCV 83.2 fL (80.0-100.0); Mean Platelet Volume 7.5; Monocytes # (A) 0.3 k/uL (0-1.0); Monocytes % (A) 5 %; Neutrophils # (A) 1.5 k/uL (1.3-7.7); Neutrophils % (A) 27 %; Platelet Count 255 k/uL (150-450); RDW 14.8 % (11.5-15.5); WBC 5.4 k/uL (3.8-10.6)
[2021-03-20 19:23] LABS: ALT 40 U/L (4-34); AST 56 U/L (14-36); African American GFR (CKD) >90 (>60 ml/min/1.73 sqM); Albumin 3.9 g/dL (3.5-5.0); Alkaline Phosphatase 99 U/L (38-126); Amylase 52 U/L (30-110); Anion Gap 5 mmol/L; Blood Urea Nitrogen 10 mg/dL (7-17); Calcium 9.2 mg/dL (8.4-10.2); Carbon Dioxide 24 mmol/L (22-30); Chloride 111 mmol/L (98-107); Glucose 91 mg/dL (74-99); Lipase 161 U/L (23-300); Magnesium 2.1 mg/dL (1.6-2.3); Non-African American GFR(CKD) >90 (>60 ml/min/1.73 sqM); Sodium 140 mmol/L (137-145); Total Bilirubin 0.7 mg/dL (0.2-1.3); Total Protein 7.3 g/dL (6.3-8.2)
[2021-03-20 19:28] LABS: Amorphous Sediment,Urine Rare /hpf; Appearance,Urine Cloudy (Clear); Bilirubin,Urine Negative (Negative); Blood,Urine Negative (Negative); Color,Urine Yellow; Glucose,Urine (UA) Negative (Negative); Ketones,Urine Negative (Negative); Leukocyte Esterase,Urine Trace (Negative); Mucus,Urine Rare /hpf; Nitrite,Urine Negative (Negative); Potassium 4.6 mmol/L (3.5-5.1); Protein,Urine Negative (Negative); RBC,Urine 1 /hpf (0-5); Specific Gravity,Urine 1.013 (1.001-1.035); Squamous Epithelial Cell,Urine 4 /hpf (0-4); Urobilinogen,Urine <2.0 mg/dL (<2.0); WBC,Urine 5 /hpf (0-5)
--- NOTE | 2021-03-20 19:50 | XR ---
EXAMINATION TYPE: XR KUB DATE OF EXAM: 03/20/2021 COMPARISON: 11/01/2020 HISTORY: Abdominal pain TECHNIQUE: 2 views upright FINDINGS: There is no sign of intestinal obstruction or pneumoperitoneum. Fecal pattern is normal. Th ere are numerous surgical clips over the stomach. There are clips from cholecystectomy. Lung bases ar e clear. There is no sign of a mass. IMPRESSION: Nonacute abdomen. No change.
[2021-03-20 20:04] LABS: INR 0.9 (<1.2); Partial Thromboplastin Time 24.5 sec (22.0-30.0); Prothrombin Time 10.1 sec (9.0-12.0)
[2021-03-20] MEDS ORDERED: MORPHINE SULFATE 4 MG/ML SYRINGE IVP STA ×2 (20:14→20:16)
[2021-03-20] MEDS ORDERED: diphenhydrAMINE 50 MG/ML 1 ML VIAL IVP STA (20:14)
[2021-03-20] MEDS ORDERED: FAMOTIDINE 20 MG/2 ML VIAL IV STA (23:10)
--- NOTE | 2021-03-20 23:16 | CT ---
EXAMINATION TYPE: CT abdomen pelvis w con DATE OF EXAM: 03/20/2021 COMPARISON: 11/06/2020 HISTORY: RLQ pain CT DLP: 923.9 mGycm Automated exposure control for dose reduction was used. CONTRAST: Performed with IV Contrast, patient injected with 100 mL of Isovue 300. Images obtained from the diaphragm to the floor the pelvis with IV contrast. The lung bases are clear. There is no pleural effusion. Heart size is normal. There is no pericardial effusion. There are clips from gastric surgery. Liver spleen pancreas appear intact. The bile ducts are not dil ated. Spleen is enlarged and measures 16.5 cm. There are clips from cholecystectomy. There is no adrenal mass. Kidneys show satisfactory contrast opacification. There is no hydronephrosi s. Ureters are not dilated. Delayed images show normal renal excretion. There is no retroperitoneal a denopathy. Bladder distends smoothly. There is no inguinal hernia. There is no free fluid in the pelv is. There is 2.5 cm cyst on the right ovary. There is no mesenteric edema. There is no ascites or free air. There is no bowel obstruction. Appendi x is not seen. There is no sign of thickened appendix. Lumbar vertebra have normal alignment. There is no compression fracture. Posterior elements are intac t. Bony pelvis is intact. Hip joints appear normal. IMPRESSION: No acute abnormality of the abdomen pelvis. Previous surgery. Right ovarian cyst. Cyst appears new co mpared to old exam.
[2021-03-21 00:02] VITALS: BP 92/52; PULSE 87
== END 2021-03-21 00:08 | disposition home or self-care (01) ==
LOC: EC 18:21
DX: N83.201 Unspecified ovarian cyst, right side (principal); R11.2 Nausea with vomiting, unspecified; R74.01 Elevation of levels of liver transaminase levels; J45.909 Unspecified asthma, uncomplicated; E07.9 Disorder of thyroid, unspecified; K21.9 Gastro-esophageal reflux disease without esophagitis; Z88.0 Allergy status to penicillin; Z88.1 Allergy status to other antibiotic agents; Z88.6 Allergy status to analgesic agent; Z88.8 Allergy status to other drugs, medicaments and biological substances; Z91.040 Latex allergy status; Z91.013 Allergy to seafood; Z91.018 Allergy to other foods; Z79.890 Hormone replacement therapy; Z79.899 Other long term (current) drug therapy
CPT/HCPCS: 36415; 80053; 82150; 83690; 83735; 85025; 85610; 85730; 81001; 81025; 74018; 74177; 99284; 96374; 96375; 96376; 96361; J2270; J1200; J2405; Q9967

== ENCOUNTER → 2021-04-24 | Outpatient (CLI) | payer OTHER ==
[2021-04-24 14:39] VITALS: BP 120/78; PULSE 81; RESP 16; TEMP 98.6; BMI 30.8
--- NOTE | 2021-05-10 12:12 | P.HPBAR ---
Bariatric H&P - History & Physicial H&P Date: 04/24/21 History & Physicial: Visit/CC: f/u Patient initial contact: Initial weight: 113.307 kg Initial weight in pounds: 249.80 Height: 5 ft 1 in Initial BMI: 47.2 Last weight: Current weight: 73.936 kg Current weight in pounds: 163.00 Current BMI: 30.8 [place] body weight (based on NIH guidelines): 47.627 kg Excess body weight loss: 59.9% The patient is a 25 year-old F who presents for Bariatric Assessment. Patient has some complaints of abdominal pain and constipation. She states she's having bowel movements every 2-3 days. Past Medical History Past Medical History: Asthma, Chest Pain / Angina, Fibromyalgia, GERD/Reflux, Liver Disease, Thyroid Disorder Additional Past Medical History / Comment(s): Cirrhosis of the liver (pt states these are partly due to her genetics and partly due to mental health medications she has been taking since age 4), Esophagitis. IBS. PART OF STOMACH NON- FUNCTIONING. BLOOD IN STOOL sometimes- last time one year ago, "fast heart beat" pt states that normal is around 100bpm, gastroporesis History of Any Multi-Drug Resistant Organisms: None Reported Past Surgical History: Appendectomy, Bariatric Surgery, Cholecystectomy, Tonsillectomy Additional Past Surgical History / Comment(s): NASAL Septum repair. COLONOSCOPY., gastric sleeve-04/26/2020 Past Anesthesia/Blood Transfusion Reactions: Motion Sickness Additional Past Anesthesia/Blood Transfusion Reaction / Comm: woke up once during surgery Past Psychological History: Anxiety, Depression, PTSD Additional Psychological History / Comment(s): 04/20/19: Takes [place] and Cymbalta daily, agoraphobia Smoking Status: Never smoker Past Alcohol Use History: None Reported Past Drug Use History: None Reported - Past Family History Father Family Medical History: Liver Disease Additional Family Medical History / Comment(s): at age 61 from COPD. ALso had cirrhosis,hepatitis C, pancreatitis, heart attacks (multiple) and esophagus disease Surgical - Exam Vital Signs Temp Pulse Resp BP 98.6 F 81 16 120/78 04/24/21 14:32 04/24/21 14:32 04/24/21 14:32 04/24/21 14:32 - General well nourished, no distress - Eyes PERRL - ENT normal pinna - Neck no masses - Respiratory normal expansion - Cardiovascular Rhythm: regular - Abdomen Abdomen: soft Bariatric Assessment & Plan Plan: She was instructed to increase her water and fiber intake for constipation. She'll follow-up in 4 weeks. Bariatric Checklist Checklist: Plan: Checklist: EGD: 1. Hiatal hernia: 2. H. Pylori: HgbA1c: Vitamin D: Smoking: Never smoker Primary care physician referral: Marysol Rose Psychiatry clearance: Cardiology clearance: Sleep study: Diet journal: VTE risk score: VTE risk level: Rehab needs at discharge:
== END | disposition home or self-care (01) ==
LOC: BARWHC3 14:04
PROVIDERS: ATTEND Surgery
DX: K59.00 Constipation, unspecified (principal)
CPT/HCPCS: 99211

== ENCOUNTER 2021-06-25 20:29 | Emergency (ER) | payer OTHER ==
[2021-06-25 20:42] VITALS: RESP 18; TEMP 98.1
--- NOTE | 2021-06-25 21:09 | ED ---
General Adult HPI - General Chief complaint: Nausea/Vomiting/Diarrhea Stated complaint: Withdraw Time Seen by Provider: 06/25/21 20:48 Source: patient Mode of arrival: wheelchair Limitations: no limitations - History of Present Illness Initial comments: Patient presents to the ED complaining of having "Cymbalta withdrawal" symptoms. Patient states that she ran out of her Cymbalta 3 days ago, and she has not taken any since then. Patient states that she has been on Cymbalta for the past 4 years or so, and she states that she takes it for depression. Patient states that she normally takes Cymbalta 60 mg PO twice a day. Patient states that she has had symptoms of nausea, vomiting and myalgias for the past couple of days. Patient also states that she has been having hallucinations at times. Patient denies having any hallucinations currently. Patient denies suicidal ideations, homicidal ideations, alcohol or drug abuse, fever, headache, focal neuro deficit, chest pain or pressure, dyspnea, cough or cold symptoms, palpitations, dizziness, syncope, abdominal pain, diarrhea or constipation, bloody or melanotic stool, hematemesis, dysuria or urinary symptoms, or any other symptoms or complaints. - Related Data Home Medications Medication Instructions Recorded Confirmed DULoxetine HCL [Cymbalta] 60 mg PO BID 01/19/19 06/25/21 EPINEPHrine (Auto Inject) [Epipen] 0.3 mg IM DAILY PRN 01/19/19 06/25/21 Ergocalciferol [Vitamin D2 50,000 unit PO WE 07/02/20 06/25/21 (DRISDOL)] Loratadine 10 mg PO HS 11/06/20 06/25/21 OXcarbazepine [Oxtellar Xr] 300 mg PO BID 11/06/20 06/25/21 Omeprazole 20 mg PO BID 11/06/20 06/25/21 Rizatriptan Benzoate [Maxalt [employer]] 10 mg PO Q4H PRN 11/06/20 06/25/21 Topiramate [Topamax] 100 mg PO HS 11/06/20 06/25/21 busPIRone HCl [Buspar] 10 mg PO TID 11/06/20 06/25/21 Etonogestrel [Nexplanon] 1 implant SQ [id number] 02/27/21 06/25/21 Ondansetron Odt [Zofran Odt] 4 mg PO DAILY PRN 06/25/21 06/25/21 Previous Rx's Medication Instructions Recorded DULoxetine HCL [Cymbalta] 60 mg PO BID #14 cap 06/25/21 Allergies Allergy/AdvReac Type Severity Reaction Status Date / Time ceftriaxone [From Rocephin] Allergy Itching Verified 06/25/21 22:24 fentanyl Allergy Rash/Hives Verified 06/25/21 22:24 latex Allergy Rash/Hives Verified 06/25/21 22:24 metoclopramide [From Reglan] Allergy Unknown Verified 06/25/21 22:24 Penicillins Allergy Anaphylaxis Verified 06/25/21 22:24 ibuprofen [From Motrin] AdvReac GI Bleed Verified 06/25/21 22:24 prazosin AdvReac Nausea & Verified 06/25/21 22:24 Vomiting grape juice Allergy Anaphylaxis Uncoded 06/25/21 20:41 Seafood Allergy Anaphylaxis Uncoded 06/25/21 20:41 Review of Systems ROS Statement: Those systems with pertinent positive or pertinent negative responses have been documented in the HPI. ROS Other: All systems not noted in ROS Statement are negative. Past Medical History Past Medical History: Asthma, Chest Pain / Angina, Fibromyalgia, GERD/Reflux, Liver Disease, Thyroid Disorder Additional Past Medical History / Comment(s): Cirrhosis of the liver (pt states these are partly due to her genetics and partly due to mental health medications she has been taking since age 4), Esophagitis. IBS. PART OF STOMACH NON- FUNCTIONING. BLOOD IN STOOL sometimes- last time one year ago, "fast heart beat" pt states that normal is around 100bpm, gastroporesis History of Any Multi-Drug Resistant Organisms: None Reported Past Surgical History: Appendectomy, Bariatric Surgery, Cholecystectomy, Tonsillectomy Additional Past Surgical History / Comment(s): NASAL Septum repair. COLONOSCOPY., gastric sleeve-04/26/2020 Past Anesthesia/Blood Transfusion Reactions: Motion Sickness Additional Past Anesthesia/Blood Transfusion Reaction / Comment(s): woke up once during surgery Past Psychological History: Anxiety, Depression, PTSD Smoking Status: Never smoker Past Alcohol Use History: None Reported Past Drug Use History: None Reported - Past Family History Father Family Medical History: Liver Disease Additional Family Medical History / Comment(s): at age 61 from COPD. ALso had cirrhosis,hepatitis C, pancreatitis, heart attacks (multiple) and esophagus disease General Exam Limitations: no limitations General appearance: alert, in no apparent distress Head exam: Present: atraumatic, normocephalic Eye exam: Present: normal appearance, PERRL, EOMI ENT exam: Present: mucous membranes moist Neck exam: Present: other (Trachea is in midline). Absent: tenderness, meningismus Respiratory exam: Present: normal lung sounds bilaterally. Absent: respiratory distress, wheezes, rales, rhonchi, stridor Cardiovascular Exam: Present: regular rate, normal rhythm, normal heart sounds, other (Normal radial pulses bilaterally) GI/Abdominal exam: Present: soft. Absent: distended, tenderness, guarding Extremities exam: Present: full ROM. Absent: tenderness, pedal edema, calf tenderness Neurological exam: Present: alert, oriented X3, CN II-XII intact. Absent: motor sensory deficit Psychiatric exam: Present: normal affect, normal mood Skin exam: Present: warm, dry, intact, normal color. Absent: rash Course Vital Signs 06/25/21 06/25/21 20:38 21:41 Temperature 98.1 F Pulse Rate 86 88 Respiratory 18 18 Rate Blood Pressure 112/71 93/63 O2 Sat by Pulse 99 97 Oximetry - Reevaluation(s) Reevaluation #1: 06/25/21 22:40 Patient states that her symptoms have improved with ED treatment, and she denies development of any new symptoms while in the ED. Patient has not any vomiting while in the ED. Patient's abdomen remains soft and nontender on examination. Patient is aware of her test results, and she feels comfortable being discharged home with a prescription for her Cymbalta at this time. Patient was given a dos e of her Cymbalta while in the ED, and she was provided with a 1 week's worth prescription. Patient was counseled about nausea/vomiting, myalgias and drug withdrawal. Patient was clearly explained return and follow-up instructions, and she was instructed to follow up closely with her primary care provider. Patient was instructed to have a low threshold for return to the emergency department should her symptoms worsen. Patient feels comfortable with this plan. Medical Decision Making - Medical Decision Making Patient's labs are fairly unremarkable. Patient has a soft and nontender abdominal exam. I suspect that the patient's symptoms may be secondary to Cymbalta withdrawal. Patient was given a dose of her Cymbalta in the ED, and s he was also provided with a prescription for 1 week's worth of her Cymbalta. Will discharge patient home at this time. - Lab Data Result diagrams: 06/25/21 21:11 06/25/21 21:11 Lab Results 06/25/21 06/25/21 Range/Units 21:11 21:11 WBC 7.7 (3.8-10.6) k/uL RBC 4.97 (3.80-5.40) m/uL Hgb 14.8 (11.4-16.0) gm/dL Hct 44.8 (34.0-46.0) % MCV 90.1 (80.0-100.0) fL MCH 29.7 (25.0-35.0) pg MCHC 33.0 (31.0-37.0) g/dL RDW 13.3 (11.5-15.5) % Plt Count 234 (150-450) k/uL MPV 7.2 Neutrophils % 49 % Lymphocytes % 43 % Monocytes % 4 % Eosinophils % 3 % Basophils % 0 % Neutrophils # 3.8 (1.3-7.7) k/uL Lymphocytes # 3.3 (1.0-4.8) k/uL Monocytes # 0.3 (0-1.0) k/uL Eosinophils # 0.2 (0-0.7) k/uL Basophils # 0.0 (0-0.2) k/uL Sodium 138 (137-145) mmol/L Potassium 4.0 (3.5-5.1) mmol/L Chloride 110 H (98-107) mmol/L Carbon Dioxide 19 L (22-30) mmol/L Anion Gap 9 mmol/L BUN 13 (7-17) mg/dL Creatinine 0.65 (0.52-1.04) mg/dL Est GFR (CKD-EPI)AfAm >90 (>60 ml/min/1.73 sqM) Est GFR (CKD-EPI)NonAf >90 (>60 ml/min/1.73 sqM) Glucose 92 (74-99) mg/dL Calcium 9.4 (8.4-10.2) mg/dL Magnesium 2.1 (1.6-2.3) mg/dL Total Bilirubin 0.4 (0.2-1.3) mg/dL AST 30 (14-36) U/L ALT 25 (4-34) U/L Alkaline Phosphatase 89 (38-126) U/L Creatine Kinase 76 (30-135) U/L Total Protein 7.4 (6.3-8.2) g/dL Albumin 4.2 (3.5-5.0) g/dL HCG, Qual Not Detected Disposition Clinical Impression: Nausea and vomiting, Myalgia, Drug withdrawal Disposition: HOME SELF-CARE Condition: Stable Instructions (If sedation given, give patient instructions): Acute Nausea and Vomiting (ED) Additional Instructions: Return to the emergency room immediately should you develop persistent vomiting, new or worsening pain, a fever, shortness of breath, feeling dizzy or faint, or new or worsening symptoms. Follow up closely with your primary care provider. Prescriptions: DULoxetine HCL [Cymbalta] 60 mg PO BID #14 cap Is patient prescribed a controlled substance at d/c from ED?: No Referrals: Marysol Rose DO [Primary Care Provider] - 1-2 days Time of Disposition: 22:46
[2021-06-25] MEDS ORDERED: ONDANSETRON 4 MG/2 ML VIAL IVP STA (21:21)
[2021-06-25] MEDS ORDERED: SODIUM CHLORIDE 0.9% 1,000 ML IV ONE (21:21)
[2021-06-25] MEDS ORDERED: DULoxetine HCL 60 MG CAPSULE.DR PO STA (21:21)
[2021-06-25 21:35] LABS: Basophils % (A) 0 %; Eosinophils # (A) 0.2 k/uL (0-0.7); Eosinophils % (A) 3 %; HCT 44.8 % (34.0-46.0); HGB 14.8 gm/dL (11.4-16.0); Lymphocytes # (A) 3.3 k/uL (1.0-4.8); Lymphocytes % (A) 43 %; MCH 29.7 pg (25.0-35.0); MCV 90.1 fL (80.0-100.0); Mean Platelet Volume 7.2; Monocytes # (A) 0.3 k/uL (0-1.0); Monocytes % (A) 4 %; Neutrophils # (A) 3.8 k/uL (1.3-7.7); Neutrophils % (A) 49 %; Platelet Count 234 k/uL (150-450); RBC 4.97 m/uL (3.80-5.40); RDW 13.3 % (11.5-15.5); WBC 7.7 k/uL (3.8-10.6)
[2021-06-25 21:48] LABS: ALT 25 U/L (4-34); AST 30 U/L (14-36); African American GFR (CKD) >90 (>60 ml/min/1.73 sqM); Albumin 4.2 g/dL (3.5-5.0); Alkaline Phosphatase 89 U/L (38-126); Anion Gap 9 mmol/L; Blood Urea Nitrogen 13 mg/dL (7-17); Calcium 9.4 mg/dL (8.4-10.2); Carbon Dioxide 19 mmol/L (22-30); Chloride 110 mmol/L (98-107); Creatine Kinase 76 U/L (30-135); Glucose 92 mg/dL (74-99); Magnesium 2.1 mg/dL (1.6-2.3); Non-African American GFR(CKD) >90 (>60 ml/min/1.73 sqM); Sodium 138 mmol/L (137-145); Total Bilirubin 0.4 mg/dL (0.2-1.3); Total Protein 7.4 g/dL (6.3-8.2)
[2021-06-25 22:33] LABS: HCG,Qualitative Serum Not Detected
[2021-06-25 23:12] VITALS: BP 95/67; PULSE 71
== END 2021-06-25 22:48 | disposition home or self-care (01) ==
LOC: EC 20:29
DX: F19.239 Other psychoactive substance dependence with withdrawal, unspecified (principal); J45.909 Unspecified asthma, uncomplicated; K21.9 Gastro-esophageal reflux disease without esophagitis; Z88.0 Allergy status to penicillin; Z88.1 Allergy status to other antibiotic agents; Z88.6 Allergy status to analgesic agent; Z88.8 Allergy status to other drugs, medicaments and biological substances; Z91.040 Latex allergy status; Z91.013 Allergy to seafood; Z91.018 Allergy to other foods; Z79.899 Other long term (current) drug therapy
CPT/HCPCS: 36415; 80053; 82550; 83735; 85025; 84703; 99284; 96374; 96361; J2405

== ENCOUNTER 2021-11-12 16:09 | Emergency (ER) | payer OTHER, MEDICARE ==
[2021-11-12 16:15] VITALS: BP 112/83; PULSE 98; RESP 16; TEMP 97.9
[2021-11-12] MEDS ORDERED: SODIUM CHLORIDE 0.9% 1,000 ML IV STA (16:39)
--- NOTE | 2021-11-12 17:02 | ED ---
General Adult HPI - General Chief complaint: Anxiety Stated complaint: mental health Time Seen by Provider: 11/12/21 16:14 Source: patient, RN notes reviewed, old records reviewed Mode of arrival: ambulatory Limitations: no limitations - History of Present Illness Initial comments: Patient is a 26-year-old female with past medical history of asthma, GERD, thyroid disorder, psychiatric history on Trileptal was been without her Trileptal for the last 3 days secondary to being unable to follow up with her psychiatrist for refill. This has happened previously. She believes she may be withdrawing, chest happened one other occasion. States she feels like she is been more anxious lately. She also feels slightly lightheaded but denies any room spinning sensation. She is uncertain if this is related to her current symptoms. Denies any other symptoms include chest pain, shortness breath, abdominal pain, nausea, vomiting. Denies any blurry vision. Is seeking a refill on her Trileptal prescription.Denies any suicidal, homicidal ideations. Denies any visual or auditory hallucinations. - Related Data Home Medications Medication Instructions Recorded Confirmed EPINEPHrine (Auto Inject) [Epipen] 0.3 mg IM DAILY PRN 01/19/19 11/12/21 Ergocalciferol [Vitamin D2 50,000 unit PO WE 07/02/20 11/12/21 (DRISDOL)] Loratadine 10 mg PO DAILY 11/06/20 11/12/21 OXcarbazepine [Oxtellar Xr] 300 mg PO BID 11/06/20 11/12/21 Omeprazole 20 mg PO BID 11/06/20 11/12/21 Topiramate [Topamax] 100 mg PO HS 11/06/20 11/12/21 busPIRone HCl [Buspar] 10 mg PO TID 11/06/20 11/12/21 Ondansetron Odt [Zofran Odt] 4 mg PO DAILY PRN 06/25/21 11/12/21 Fluticasone Nasal [place] [Flonase 1 spray EA NOSTRIL DAILY 11/12/21 11/12/21 Nasal [place]] Rimegepant Sulfate [Nurtec Odt] 75 mg PO DAILY PRN 11/12/21 11/12/21 Previous Rx's Medication Instructions Recorded DULoxetine HCL [Cymbalta] 60 mg PO BID #14 cap 06/25/21 OXcarbazepine [Trileptal] 300 mg PO BID 7 Days #14 tablet 11/12/21 Allergies Allergy/AdvReac Type Severity Reaction Status Date / Time ceftriaxone [From Rocephin] Allergy Itching Verified 11/12/21 17:56 fentanyl Allergy Rash/Hives Verified 11/12/21 17:56 latex Allergy Rash/Hives Verified 11/12/21 17:56 metoclopramide [From Reglan] Allergy Unknown Verified 11/12/21 17:56 Penicillins Allergy Anaphylaxis Verified 11/12/21 17:56 ibuprofen [From Motrin] AdvReac GI Bleed Verified 11/12/21 17:56 prazosin AdvReac Nausea & Verified 11/12/21 17:56 Vomiting grape juice Allergy Anaphylaxis Uncoded 11/12/21 16:15 Seafood Allergy Anaphylaxis Uncoded 11/12/21 16:15 Review of Systems ROS Statement: Those systems with pertinent positive or pertinent negative responses have been documented in the HPI. Review of Systems: CONST: Denies fever EYES: Denies blurry vision ENT: Denies nasal congestion C/V: Denies Chest pain RESP: Denies shortness of breath GI: Denies abdominal pain : Denies dysuria SKIN: Denies rash. MSK: Denies joint pain. NEURO: Denies headache ROS Other: All systems not noted in ROS Statement are negative. Past Medical History Past Medical History: Asthma, Chest Pain / Angina, Fibromyalgia, GERD/Reflux, Liver Disease, Thyroid Disorder Additional Past Medical History / Comment(s): Cirrhosis of the liver (pt states these are partly due to her genetics and partly due to mental health medications she has been taking since age 4), Esophagitis. IBS. PART OF STOMACH NON- FUNCTIONING. BLOOD IN STOOL sometimes- last time one year ago, "fast heart beat" pt states that normal is around 100bpm, gastroporesis History of Any Multi-Drug Resistant Organisms: None Reported Past Surgical History: Appendectomy, Bariatric Surgery, Cholecystectomy, Tonsillectomy Additional Past Surgical History / Comment(s): NASAL Septum repair. COLONOSCOPY., gastric sleeve-04/26/2020 Past Anesthesia/Blood Transfusion Reactions: Motion Sickness Additional Past Anesthesia/Blood Transfusion Reaction / Comment(s): woke up once during surgery Past Psychological History: Anxiety, Depression, PTSD Smoking Status: Never smoker Past Alcohol Use History: None Reported Past Drug Use History: None Reported - Past Family History Father Family Medical History: Liver Disease Additional Family Medical History / Comment(s): at age 61 from COPD. ALso had cirrhosis,hepatitis C, pancreatitis, heart attacks (multiple) and esophagus disease General Exam - General Exam Comments Initial Comments: General: Appears in no acute distress. HEAD: Normal with no signs of head trauma. EYES: PERRLA, EOMI, conjunctiva normal, no discharge. Pupils are 3+ and equal bilaterally. ENT: Hearing grossly intact, normal oropharynx. RESPIRATORY: Clear breath sounds bilaterally. No wheezes, rales, or rhonchi. C/V: Regular rate and rhythm. S1 and S2 auscultated, no edema, peripheral pulses 2+ and intact throughout ABD: Abd is soft, nontender, nondistended EXT: Normal range of motion, no obvious deformity SKIN: No rashes or lesions observed on exposed skin. NEURO: Alert and oriented 4. No focal sensory strength deficits. Patient is able to ambulate. NIH is 0. GCS is 15. Cerebellar function appears intact as evident by normal finger to nose testing. Limitations: no limitations Course Vital Signs 11/12/21 16:12 Temperature 97.9 F Pulse Rate 98 Respiratory 16 Rate Blood Pressure 112/83 O2 Sat by Pulse 98 Oximetry Medical Decision Making - Medical Decision Making Based on the patient's presentation and physical exam, I do believe she is likely experiencing mild withdrawals from her Trileptal, however would like to obtain basic laboratory studies as well as a screening EKG due to her lightheadedness feeling. She was in agreement with this plan. She'll be given a 1 L fluid bolus as well as a dose of Trileptal here. EKG shows no signs of acute ischemia. Patient's laboratory studies are unremarkable, including a negative test. On reevaluation, she is feeling improved, and lightheadedness has resolved.. We do not think she needs to be evaluated by EPS on this visit. She was in agreement this plan. I instructed her to follow up with her psychiatrist this week, which she was in agreement. She'll be given a week's prescription of Lamictal. Strict return precautions were discussed. Patient was discharged home. I will provide the patient with a prescription for Lamictal 300 mg twice a day for 7 days. I instructed the patient to follow up with their PCP in the next 3 days. I explained that the patient should return to the emergency department if they experience any worsening symptoms. Strict return precautions were discussed with the patient. The patient expressed understanding of these instructions. I answered all questions that the patient had. The patient was discharged home in good condition with their prescriptions and follow up information. - Lab Data Result diagrams: 11/12/21 17:03 11/12/21 17:03 Lab Results 11/12/21 11/12/21 11/12/21 Range/Units 17:03 17:03 17:03 WBC 7.6 (3.8-10.6) k/uL RBC 4.80 (3.80-5.40) m/uL Hgb 14.8 (11.4-16.0) gm/dL Hct 44.6 (34.0-46.0) % MCV 92.8 (80.0-100.0) fL MCH 30.8 (25.0-35.0) pg MCHC 33.2 (31.0-37.0) g/dL RDW 12.2 (11.5-15.5) % Plt Count 263 (150-450) k/uL MPV 7.3 Neutrophils % 48 % Lymphocytes % 42 % Monocytes % 5 % Eosinophils % 3 % Basophils % 1 % Neutrophils # 3.6 (1.3-7.7) k/uL Lymphocytes # 3.2 (1.0-4.8) k/uL Monocytes # 0.4 (0-1.0) k/uL Eosinophils # 0.2 (0-0.7) k/uL Basophils # 0.1 (0-0.2) k/uL Sodium 139 (137-145) mmol/L Potassium 4.0 (3.5-5.1) mmol/L Chloride 110 H (98-107) mmol/L Carbon Dioxide 21 L (22-30) mmol/L Anion Gap 8 mmol/L BUN 10 (7-17) mg/dL Creatinine 0.68 (0.52-1.04) mg/dL Est GFR (CKD-EPI)AfAm >90 (>60 ml/min/1.73 sqM) Est GFR (CKD-EPI)NonAf >90 (>60 ml/min/1.73 sqM) Glucose 92 (74-99) mg/dL Calcium 9.2 (8.4-10.2) mg/dL HCG, Qual Not Detected Urine Color Yellow Urine Appearance Clear (Clear) Urine pH 6.5 (5.0-8.0) Ur Specific [place] 1.025 (1.001-1.035) Urine Protein Negative (Negative) Urine Glucose (UA) Negative (Negative) Urine Ketones Negative (Negative) Urine Blood Negative (Negative) Urine Nitrite Negative (Negative) Urine Bilirubin Negative (Negative) Urine Urobilinogen 2.0 (<2.0) mg/dL Ur Leukocyte Esterase Negative (Negative) - EKG Data -: EKG Interpreted by Me EKG Comments: 12-lead Electrocardiogram Interpretation Note EKG was reviewed and interpreted by myself. 12-lead ECG performed at 1654 is interpreted by me as revealing normal sinus rhythm at a rate of 85 beats per minute. [place] is normal. RI interval is 190 ms, QRS duration is 77 ms, QTc is 4 17 ms.. There were no ST or T wave abnormalities to suggest myocardial ischemia or injury. R wave progression across the precordium was satisfactory. By my interpretation this EKG is non-diagnostic for acute ischemia. Disposition Clinical Impression: Anxiety, Medication refill Disposition: HOME SELF-CARE Condition: Good Instructions (If sedation given, give patient instructions): Generalized Anxiety Disorder (ED) Prescriptions: OXcarbazepine [Trileptal] 300 mg PO BID 7 Days #14 tablet Is patient prescribed a controlled substance at d/c from ED?: No Referrals: Marysol Rose DO [Primary Care Provider] - 1-2 days
[2021-11-12 17:25] LABS: African American GFR (CKD) >90 (>60 ml/min/1.73 sqM); Anion Gap 8 mmol/L; Basophils # (A) 0.1 k/uL (0-0.2); Basophils % (A) 1 %; Blood Urea Nitrogen 10 mg/dL (7-17); Calcium 9.2 mg/dL (8.4-10.2); Carbon Dioxide 21 mmol/L (22-30); Chloride 110 mmol/L (98-107); Eosinophils # (A) 0.2 k/uL (0-0.7); Eosinophils % (A) 3 %; Glucose 92 mg/dL (74-99); HCT 44.6 % (34.0-46.0); HGB 14.8 gm/dL (11.4-16.0); Lymphocytes # (A) 3.2 k/uL (1.0-4.8); Lymphocytes % (A) 42 %; MCH 30.8 pg (25.0-35.0); MCHC 33.2 g/dL (31.0-37.0); MCV 92.8 fL (80.0-100.0); Mean Platelet Volume 7.3; Monocytes # (A) 0.4 k/uL (0-1.0); Monocytes % (A) 5 %; Neutrophils # (A) 3.6 k/uL (1.3-7.7); Neutrophils % (A) 48 %; Non-African American GFR(CKD) >90 (>60 ml/min/1.73 sqM); Platelet Count 263 k/uL (150-450); RDW 12.2 % (11.5-15.5); Sodium 139 mmol/L (137-145); WBC 7.6 k/uL (3.8-10.6)
[2021-11-12 17:26] LABS: Appearance,Urine Clear (Clear); Bilirubin,Urine Negative (Negative); Blood,Urine Negative (Negative); Color,Urine Yellow; Glucose,Urine (UA) Negative (Negative); Ketones,Urine Negative (Negative); Leukocyte Esterase,Urine Negative (Negative); Nitrite,Urine Negative (Negative); PH, Urine 6.5 (5.0-8.0); Protein,Urine Negative (Negative); Specific Gravity,Urine 1.025 (1.001-1.035)
[2021-11-12 17:57] LABS: HCG,Qualitative Serum Not Detected
[2021-11-12] MEDS ORDERED: OXcarbazepine 300 MG TAB PO SCH (21:00)
== END 2021-11-12 18:12 | disposition home or self-care (01) ==
LOC: EC 16:09
DX: F41.9 Anxiety disorder, unspecified (principal); I10 Essential (primary) hypertension; Z88.1 Allergy status to other antibiotic agents; Z88.6 Allergy status to analgesic agent; Z91.040 Latex allergy status; Z88.0 Allergy status to penicillin; Z91.013 Allergy to seafood
CPT/HCPCS: 36415; 80048; 81003; 84703; 85025; 93005; 96360; 99283

== ENCOUNTER 2024-10-10 15:49 | Emergency (ER) | payer MEDICARE, OTHER ==
[2024-10-10 16:10] VITALS: RESP 18; TEMP 98.3
--- NOTE | 2024-10-10 16:40 | ED ---
General Adult HPI - General Chief complaint: Headache Stated complaint: headache nvd Time Seen by Provider: 10/10/24 16:11 Source: patient, RN notes reviewed Mode of arrival: ambulatory Limitations: no limitations - History of Present Illness Initial comments: 29-year-old female presents to the emergency department for evaluation of headache. Patient reports that this been going on for 3 days. She states that it is on both sides of her forehead and radiates to the back of her head. She reports no relief with ibuprofen, naproxen, Nurtec. She admits to photosensitivity. She also endorses nausea and vomiting. Denies recent fever, chills. Denies any upper respiratory symptoms. - Related Data Home Medications Medication Instructions Recorded Confirmed EPINEPHrine (Auto Inject) [Epipen] 0.3 mg IM DAILY PRN 01/19/19 11/12/21 Ergocalciferol [Vitamin D2 50,000 unit PO WE 07/02/20 11/12/21 (DRISDOL)] Loratadine 10 mg PO DAILY 11/06/20 11/12/21 OXcarbazepine [Oxtellar Xr] 300 mg PO BID 11/06/20 11/12/21 Omeprazole 20 mg PO BID 11/06/20 11/12/21 Topiramate [Topamax] 100 mg PO HS 11/06/20 11/12/21 busPIRone HCl [Buspar] 10 mg PO TID 11/06/20 11/12/21 Ondansetron Odt [Zofran Odt] 4 mg PO DAILY PRN 06/25/21 11/12/21 Fluticasone Nasal Sidney [Flonase 1 spray EA NOSTRIL DAILY 11/12/21 11/12/21 Nasal Sidney] Rimegepant Sulfate [Nurtec Odt] 75 mg PO DAILY PRN 11/12/21 11/12/21 Previous Rx's Medication Instructions Recorded DULoxetine HCL [Cymbalta] 60 mg PO BID #14 cap 06/25/21 OXcarbazepine [Trileptal] 300 mg PO BID 7 Days #14 tablet 11/12/21 Allergies Allergy/AdvReac Type Severity Reaction Status Date / Time ceftriaxone [From Rocephin] Allergy Itching Verified 10/10/24 16:06 fentanyl Allergy Rash/Hives Verified 10/10/24 16:06 latex Allergy Rash/Hives Verified 10/10/24 16:06 metoclopramide [From Reglan] Allergy Unknown Verified 10/10/24 16:06 Penicillins Allergy Anaphylaxis Verified 10/10/24 16:06 ibuprofen [From Motrin] AdvReac GI Bleed Verified 10/10/24 16:06 prazosin AdvReac Nausea & Verified 10/10/24 16:06 Vomiting grape juice Allergy Anaphylaxis Uncoded 10/10/24 16:06 Seafood Allergy Anaphylaxis Uncoded 10/10/24 16:06 Review of Systems ROS Statement: Those systems with pertinent positive or pertinent negative responses have been documented in the HPI. ROS Other: All systems not noted in ROS Statement are negative. Past Medical History Past Medical History: Asthma, Chest Pain / Angina, Fibromyalgia, GERD/Reflux, Liver Disease, Thyroid Disorder Additional Past Medical History / Comment(s): Cirrhosis of the liver (pt states these are partly due to her genetics and partly due to mental health medications she has been taking since age 4), Esophagitis. IBS. PART OF STOMACH NON- FUNCTIONING. BLOOD IN STOOL sometimes- last time one year ago, "fast heart beat" pt states that normal is around 100bpm, gastroporesis History of Any Multi-Drug Resistant Organisms: None Reported Past Surgical History: Appendectomy, Bariatric Surgery, Cholecystectomy, Tonsillectomy Additional Past Surgical History / Comment(s): NASAL Septum repair. COLONOSCOPY., gastric sleeve-04/26/2020 Past Anesthesia/Blood Transfusion Reactions: Motion Sickness Additional Past Anesthesia/Blood Transfusion Reaction / Comment(s): woke up once during surgery Past Psychological History: Anxiety, Depression, PTSD Smoking Status: Never smoker Past Alcohol Use History: None Reported Past Drug Use History: None Reported - Past Family History Father Family Medical History: Liver Disease Additional Family Medical History / Comment(s): at age 61 from COPD. ALso had cirrhosis,hepatitis C, pancreatitis, heart attacks (multiple) and esoph ab disease General Exam Limitations: no limitations General appearance: alert, in no apparent distress Head exam: Present: atraumatic, normocephalic, normal inspection Course Vital Signs 10/10/24 16:07 Temperature 98.3 F Pulse Rate 109 H Respiratory 18 Rate Blood Pressure 123/84 O2 Sat by Pulse 99 Oximetry Medical Decision Making - Medical Decision Making Was pt. sent in by a medical professional or institution (CHITO Johnson, TRAFFIC SIGNAL SUPERVISOR MAINTENANCE, urgent care, hospital, or snf...) When possible be specific @ -[No] Did you speak to anyone other than the patient for history (EMS, parent, family, police, friend...)? What history was obtained from this source @ -[No] Did you review nursing and triage notes (agree or disagree)? Why? @ -[I reviewed and agree with nursing and triage notes] Were old charts reviewed (outside hosp., previous admission, EMS record, old EKG, old radiological studies, urgent care reports/EKG's, snf records)? Report findings @ -[No old charts were reviewed] Differential Diagnosis (chest pain, altered mental status, abdominal pain women, abdominal pain men, vaginal bleeding, weakness, fever, dyspnea, syncope, headache, dizziness, GI bleed, back pain, seizure, CVA, palpatations, mental health, musculoskeletal)? @ -[Differential Headache: Migraine, tension, cluster, carbon monoxide, central venous thrombosis, pension karma temporal arteritis, acute closure glaucoma, intercranial hemorrhage, mastoiditis, sinusitis, head injury, this is not meant to be an all-inclusive list. ] EKG interpreted by me (3pts min.). @ -None X-rays interpreted by me (1pt min.). @ -[None done] CT interpreted by me (1pt min.). @ -[None done] U/S interpreted by me (1pt. min.). @ -[None done] What testing was considered but not performed or refused? (CT, X-rays, U/S, labs)? Why? @ -[None] What meds were considered but not given or refused? Why? @ -[None] Did you discuss the management of the patient with other professionals (professionals i.e. CHITO Johnson, TRAFFIC [employer]NAL SUPER[employer]INTENA[employer]CE, lab, RT, psych nurse, psychiatric social worker supervisor, finisher card tender, teacher, chief media officer, dependency case manager)? Give summary @ -[No] Was smoking cessation discussed for >3mins.? @ -[No] Was critical care preformed (if so, how long)? @ -[No] Were there social determinants of health that impacted care today? How? (Homelessness, low income, unemployed, alcoholism, drug addiction, transportation, low edu. Level, literacy, decrease access to med. care, group home, rehab)? @ -[No] Was there de-escalation of care discussed even if they declined (Discuss DNR or withdrawal of care, Hospice)? DNR status @ -[No] What co-morbidities impacted this encounter? (DM, HTN, Smoking, COPD, CAD, Cancer, CVA, ARF, Chemo, Hep., AIDS, mental health diagnosis, sleep apnea, morbid obesity)? @ -[None] Was patient admitted / discharged? Hospital course, mention meds given and route, prescriptions, significant lab abnormalities, going to OR and other pertinent info. @ -[hospital course] Undiagnosed new problem with uncertain prognosis? @ -[No] Drug Therapy requiring intensive monitoring for toxicity (Heparin, Nitro, Insulin, Cardizem)? @ -[No] Were any procedures done? @ -[No] Diagnosis/symptom? @ -[default] Acute, or Chronic, or Acute on Chronic? @ -[default] Uncomplicated (without systemic symptoms) or Complicated (systemic symptoms)? @ -[default] Side effects of treatment? @ -[No] Exacerbation, Progression, or Severe Exacerbation? @ -[No] Poses a threat to life or bodily function? How? (Chest pain, [place], [place], pneumonia, PE, COPD, DKA, ARF, appy, cholecystitis, CVA, Diverticulitis, Homicidal, Suicidal, threat to staff... and all critical care pts) @ -[No] - Lab Data Result diagrams: 10/10/24 17:06 10/10/24 17:06 Lab Results 10/10/24 10/10/24 10/10/24 Range/Units 17:06 17:06 17:50 WBC 8.5 (3.8-10.6) k/uL RBC 4.56 (3.80-5.40) m/uL Hgb 13.2 (11.4-16.0) gm/dL Hct 39.7 (34.0-46.0) % MCV 87.0 (80.0-100.0) fL MCH 29.0 (25.0-35.0) pg MCHC 33.3 (31.0-37.0) g/dL RDW 12.8 (11.5-15.5) % Plt Count 276 (150-450) k/uL MPV 7.2 Neutrophils % 61 % Lymphocytes % 26 % Monocytes % 4 % Eosinophils % 7 % Basophils % 0 % Neutrophils # 5.2 (1.3-7.7) k/uL Lymphocytes # 2.2 (1.0-4.8) k/uL Monocytes # 0.4 (0-1.0) k/uL Eosinophils # 0.6 (0-0.7) k/uL Basophils # 0.0 (0-0.2) k/uL Sodium 138 (137-145) mmol/L Potassium 5.4 H (3.5-5.1) mmol/L Chloride 105 (98-107) mmol/L Carbon Dioxide 24 (22-30) mmol/L Anion Gap 9 mmol/L BUN 8 (7-17) mg/dL Creatinine 0.66 (0.52-1.04) mg/dL Est GFR (CKD-EPI)AfAm >90 (>60 ml/min/1.73 sqM) Est GFR (CKD-EPI)NonAf >90 (>60 ml/min/1.73 sqM) Glucose 90 (74-99) mg/dL Calcium 9.4 (8.4-10.2) mg/dL Total Bilirubin 0.6 (0.2-1.3) mg/dL AST 41 H (14-36) U/L ALT 30 (4-34) U/L Alkaline Phosphatase 52 (38-126) U/L Total Protein 7.3 (6.3-8.2) g/dL Albumin 4.1 (3.5-5.0) g/dL Urine Color Urine Appearance (Clear) Urine pH (5.0-8.0) Ur Specific N[place] (1.001-1.035) Urine Protein (Negative) Urine Glucose (UA) (Negative) Urine Ketones (Negative) Urine Blood (Negative) Urine Nitrite (Negative) Urine Bilirubin (Negative) Urine Urobilinogen (<2.0) mg/dL Ur Leukocyte Esterase (Negative) Urine HCG, Qual (Not Detectd) Influenza Type A (PCR) Not Detected (Not Detectd) Influenza Type B (PCR) Not Detected (Not Detectd) RSV (PCR) Not Detected (Not Detectd) SARS-CoV-2 (PCR) Not Detected (Not Detectd) 10/10/24 10/10/24 Range/Units 18:20 18:20 WBC (3.8-10.6) k/uL RBC (3.80-5.40) m/uL Hgb (11.4-16.0) gm/dL Hct (34.0-46.0) % MCV (80.0-100.0) fL MCH (25.0-35.0) pg MCHC (31.0-37.0) g/dL RDW (11.5-15.5) % Plt Count (150-450) k/uL MPV Neutrophils % % Lymphocytes % % Monocytes % % Eosinophils % % Basophils % % Neutrophils # (1.3-7.7) k/uL Lymphocytes # (1.0-4.8) k/uL Monocytes # (0-1.0) k/uL Eosinophils # (0-0.7) k/uL Basophils # (0-0.2) k/uL Sodium (137-145) mmol/L Potassium (3.5-5.1) mmol/L Chloride (98-107) mmol/L Carbon Dioxide (22-30) mmol/L Anion Gap mmol/L BUN (7-17) mg/dL Creatinine (0.52-1.04) mg/dL Est GFR (CKD-EPI)AfAm (>60 ml/min/1.73 sqM) Est GFR (CKD-EPI)NonAf (>60 ml/min/1.73 sqM) Glucose (74-99) mg/dL Calcium (8.4-10.2) mg/dL Total Bilirubin (0.2-1.3) mg/dL AST (14-36) U/L ALT (4-34) U/L Alkaline Phosphatase (38-126) U/L Total Protein (6.3-8.2) g/dL Albumin (3.5-5.0) g/dL Urine Color Yellow Urine Appearance Clear (Clear) Urine pH 7.5 (5.0-8.0) Ur Specific [place] 1.018 (1.001-1.035) Urine Protein Negative (Negative) Urine Glucose (UA) Negative (Negative) Urine Ketones Negative (Negative) Urine Blood Negative (Negative) Urine Nitrite Negative (Negative) Urine Bilirubin Negative (Negative) Urine Urobilinogen <2.0 (<2.0) mg/dL Ur Leukocyte Esterase Negative (Negative) Urine HCG, Qual Not Detected (Not Detectd) Influenza Type A (PCR) (Not Detectd) Influenza Type B (PCR) (Not Detectd) RSV (PCR) (Not Detectd) SARS-CoV-2 (PCR) (Not Detectd) Disposition Clinical Impression: Headache Disposition: HOME SELF-CARE Condition: Stable Instructions (If sedation given, give patient instructions): Acute Headache (ED) Additional Instructions: Please follow up with your primary care provider. Return to the emergency department for new or worsening symptoms. Is patient prescribed a controlled substance at d/c from ED?: No Referrals: Lon Goldberg MD [Primary Care Provider] - 1-2 days
[2024-10-10] MEDS: ONDANSETRON 4 MG/2 ML VIAL IVP STA (17:15)
[2024-10-10] MEDS: diphenhydrAMINE 50 MG/ML 1 ML VIAL IVP STA (17:16)
[2024-10-10] MEDS: KETOROLAC 15 MG/ML 1 ML VIAL IVP STA (17:16)
[2024-10-10 17:18] LABS: Basophils % (A) 0 %; Eosinophils # (A) 0.6 k/uL (0-0.7); Eosinophils % (A) 7 %; HCT 39.7 % (34.0-46.0); HGB 13.2 gm/dL (11.4-16.0); Lymphocytes # (A) 2.2 k/uL (1.0-4.8); Lymphocytes % (A) 26 %; MCHC 33.3 g/dL (31.0-37.0); Mean Platelet Volume 7.2; Monocytes # (A) 0.4 k/uL (0-1.0); Monocytes % (A) 4 %; Neutrophils # (A) 5.2 k/uL (1.3-7.7); Neutrophils % (A) 61 %; Platelet Count 276 k/uL (150-450); RBC 4.56 m/uL (3.80-5.40); RDW 12.8 % (11.5-15.5); WBC 8.5 k/uL (3.8-10.6)
[2024-10-10] MEDS: SODIUM CHLORIDE 0.9% 1,000 ML IV STA (17:20)
[2024-10-10 17:54] LABS: ALT 30 U/L (4-34); African American GFR (CKD) >90 (>60 ml/min/1.73 sqM); Anion Gap 9 mmol/L; Blood Urea Nitrogen 8 mg/dL (7-17); Calcium 9.4 mg/dL (8.4-10.2); Carbon Dioxide 24 mmol/L (22-30); Chloride 105 mmol/L (98-107); Glucose 90 mg/dL (74-99); Non-African American GFR(CKD) >90 (>60 ml/min/1.73 sqM); Sodium 138 mmol/L (137-145); Total Bilirubin 0.6 mg/dL (0.2-1.3)
[2024-10-10 18:06] LABS: AST 41 U/L (14-36); Albumin 4.1 g/dL (3.5-5.0); Alkaline Phosphatase 52 U/L (38-126); Potassium 5.4 mmol/L (3.5-5.1); Total Protein 7.3 g/dL (6.3-8.2)
[2024-10-10] MEDS: MORPHINE SULFATE 4 MG/ML SYRINGE IVP STA (18:09)
[2024-10-10 18:33] LABS: Influenza A Not Detected (Not Detectd); Influenza B Not Detected (Not Detectd); RSV Not Detected (Not Detectd)
[2024-10-10 18:45] LABS: Appearance,Urine Clear (Clear); Bilirubin,Urine Negative (Negative); Blood,Urine Negative (Negative); Color,Urine Yellow; Glucose,Urine (UA) Negative (Negative); Ketones,Urine Negative (Negative); Leukocyte Esterase,Urine Negative (Negative); Nitrite,Urine Negative (Negative); PH, Urine 7.5 (5.0-8.0); Protein,Urine Negative (Negative); Specific Gravity,Urine 1.018 (1.001-1.035); Urobilinogen,Urine <2.0 mg/dL (<2.0)
[2024-10-10] MEDS: MORPHINE SULFATE 2 MG/ML SYRINGE IVP STA (19:00)
--- NOTE | 2024-10-10 19:37 | CT ---
EXAMINATION TYPE: CT brain wo con DATE OF EXAM: 10/10/2024 7:33 PM COMPARISON: Previous CT study 07/03/2020. CLINICAL INDICATION: Female, 29 years old with history of pain, headache TECHNIQUE: Brain: Axial CT images of the brain were obtained with coronal and sagittal reformats created and rev iewed. Contrast used: None. Oral contrast used: None. CT DLP: 1074.7 mGycm, Automated exposure control for dose reduction was used. FINDINGS: Brain: Extra-axial spaces: No abnormal extra-axial fluid collections. Ventricular system: Within normal limits Cerebral parenchyma: No acute intraparenchymal hemorrhage or mass effect. The [place]-white junction is well differentiated. Cerebellum: Unremarkable. Mass effect: No evidence of midline shift. Intracranial vasculature: unremarkable Soft tissues: Normal. Calvarium/osseous structures: No depressed skull fracture. Paranasal sinuses and mastoid air cells: Mild scattered paranasal sinus disease. Visualized orbits: Orbital contents are intact. IMPRESSION: No acute intracranial process. [facility], , 10/10/2024 7:35 PM
[2024-10-10 20:05] VITALS: BP 114/72; PULSE 100
[2024-10-10] MEDS: HYDROmorphone 0.5 MG/0.5 ML SYRINGE IVP STA (20:06)
[2024-10-10] MEDS: ACET/COD 300 MG/30 MG STARTER PACK 6 TAB BTL PO STA (20:07)
[2024-10-10] MEDS: ONDANSETRON 4 MG ODT STARTER PACK 2 TAB BTL PO STA (20:07)
== END 2024-10-10 20:17 | disposition home or self-care (01) ==
LOC: EC 15:49
DX: R51.9 Headache, unspecified (principal); Z11.52 Encounter for screening for COVID-19; Z88.0 Allergy status to penicillin; Z88.1 Allergy status to other antibiotic agents; Z88.6 Allergy status to analgesic agent; Z88.8 Allergy status to other drugs, medicaments and biological substances; Z91.040 Latex allergy status; Z91.013 Allergy to seafood; Z91.018 Allergy to other foods; Z88.5 Allergy status to narcotic agent
CPT/HCPCS: 36415; 80053; 85025; 81003; 81025; 87636; 70450; 99284; 96374; 96375; 96376; 96361 ×2; J2270 ×2; J1200; J2405; J1885; S0119; J1171